=== PATIENT | female | born 1940 | race Caucasian/White ===

== ENCOUNTER → 2018-02-25 12:16 | Outpatient (CLI) | payer MEDICARE, BC, SELFPAY ==
--- NOTE | 2018-02-25 12:21 | RAD_ITS ---
STUDY: X-RAY - LEFT FOOT CLINICAL: Female, 77 years old. Patient fell. Pain TECHNIQUE: 3 view(s) of the foot. COMPARISON: None. FINDINGS: There is hallux valgus deformity with uncovering about 30% of the articular margin of the first MTP joint. There is a nondisplaced fracture involving the base of the fifth metatarsal bone. The rest of the bones of the foot are normal RAD/Foot min 3 Views IMPRESSION: A nondisplaced fracture involving the base of the fifth metatarsal bone. A mild hallux deformity Electronically Signed: Walt Melendez, at 7:18 EDT Tel , Service support ,
== END ==
PROVIDERS: Family Provider Family Medicine; PCP Family Medicine; Visit Provider Chiropractor
DX: S92.355A Nondisplaced fracture of fifth metatarsal bone, left foot, initial encounter for closed fracture (principal); W19.XXXA Unspecified fall, initial encounter
CPT/HCPCS: 73630

== ENCOUNTER → 2018-03-20 13:02 | Outpatient (CLI) | payer MEDICARE, BC, SELFPAY ==
--- NOTE | 2018-03-20 13:05 | RAD_ITS ---
STUDY: X-RAY - LEFT FOOT CLINICAL: Female, 78 years old. FRACTURE FOLLOW UP TECHNIQUE: 3 view(s) of the foot. COMPARISON: 18 FINDINGS: Normal talus, calcaneus, and tarsal bones. Normal visualized subtalar, talonavicular, calcaneocuboid, tarsal and tarsometatarsal articulations. Status post fracture of the base of the fifth metatarsal bone. There is degenerative arthrosis of the metatarsophalangeal joint of the hallux with a hallux valgus deformity. Normal tibial and fibular sesamoid bones. Normal interphalangeal joint of the great toe. Normal phalanges of the great toe. Normal second through fifth metatarsophalangeal joints. Normal interphalangeal joints and phalanges of the lesser toes. The soft tissue structures are unremarkable. RAD/Foot min 3 Views IMPRESSION: No evidence for healing of the fractured base of the fifth metatarsal bone. Electronically Signed: Reggie Hernández MD at 17:20 EDT , Service support ,
== END ==
PROVIDERS: Family Provider Family Medicine; PCP Family Medicine; Visit Provider Nurse Practitioner Family
DX: S92.302A Fracture of unspecified metatarsal bone(s), left foot, initial encounter for closed fracture (principal); X58.XXXA Exposure to other specified factors, initial encounter
CPT/HCPCS: 73630

== ENCOUNTER 2018-12-01 16:48 | Inpatient (IN) | payer MEDICARE, BC, SELFPAY ==
[2018-10-09 11:00] VITALS: BMI 16.2
[2018-12-01] VITALS (12 sets, daily range): BP systolic 126–149; BP diastolic 83–105; PULSE 99–136; RESP 15–23; TEMP 36.2–37; O2SAT 92–99; BMI 17.2; BMI 17.0
--- NOTE | 2018-12-01 17:37 | EKG12_ITS ---
Test Reason : Blood Pressure : / mmHG Vent. Rate : 124 BPM Atrial Rate : 110 BPM P-R Int : 000 ms QRS Dur : 090 ms QT Int : 330 ms P-R-T Axes : 000 099 099 degrees QTc Int : 474 ms Atrial fibrillation with rapid ventricular response Rightward axis Low voltage QRS Abnormal ECG Confirmed by SALVATORE LUTHER, KOBY ([id number]), editorial director ASTRID MERINO ([id number]) on 12/03/2018 1:23:42 PM Referred By: ELIZABETH Confirmed By:KOBY CHASE MD
--- NOTE | 2018-12-01 17:39 | RAD_ITS ---
STUDY: X-RAY CHEST REASON FOR EXAM: Female, 78 years old. Shortness of breath. TECHNIQUE: PA and lateral views of the chest. COMPARISON: None. FINDINGS: There are bilateral pleural effusions associated with bibasilar ill-defined patchy opacities. Normal size heart. Normal mediastinum and clari. Normal visualized pulmonary arteries. Normal visualized aortic arch and descending thoracic aorta. Normal visualized thoracic spine. Normal visualized ribs, clavicles, and shoulders. There is no demonstrated abnormality of the visualized soft tissue structures of the upper abdomen. RAD/Chest PA and Lateral IMPRESSION: Bilateral pleural effusions associated with bibasilar patchy opacities concerning for underlying atelectasis and/or pneumonia. Electronically Signed: Viv Atkins MD at 20:07 EDT Tel , Service support ,
--- NOTE | 2018-12-01 17:41 | ED.VIS.GEN ---
History of Present Illness Chief Complaint: General Illness Detail of Chief Complaint: multiple complaints Informant: Patient, Family Onset: Days - 5-6 Context: Gradual Onset Narrative: Patient is very poor historian and has multiple complaints over the past week. She has had a cough that is occasionally productive, some shortness of breath, subjective chills that she states may have been fevers, chronic abdominal pain with new worsening in the umbilicus over the past weeks or months, she is not sure, decreased urination but no dysuria or hematuria, poor appetite and oral intake, diarrhea for the past 3 or 4 days, nausea for the past week along with one bout of emesis 4 days ago. She feels weak all over. - Past Medical History (1) History of basal cell carcinoma Status: Chronic (2) History of cataract Status: Chronic (3) History of hepatitis Status: Chronic (4) Nonrheumatic mitral (valve) prolapse Status: Chronic (5) Paroxysmal atrial fibrillation Status: Chronic (6) Anxiety and depression Status: Chronic (7) GERD (gastroesophageal reflux disease) Status: Chronic (8) Hypothyroidism Status: Chronic (9) IBS (irritable bowel syndrome) Status: Chronic Past Medical History - Allergies and Home Meds Allergies/Adverse Reactions: Allergies gluten Allergy (Intermediate, Verified 12/01/18 16:49) Unknown lactose Allergy (Intermediate, Verified 12/01/18 16:49) unknown Primary Care Physician: Daljit Sen DO [Primary Care Provider] - Smoking Status: Never smoker Alcohol: None Review of Systems General: Reports: Chills, Malaise Eyes: Denies: Visual changes - bilaterally, Diplopia ENT: Denies: Bilateral ear pain, Rhinorrhea, Sore throat Cardiovascular: Reports: Chest pain - left, chronic, unchanged. Denies: Palpitations Respiratory: Reports: Dyspnea, Cough, Sputum, Dyspnea on exertion Gastrointestinal: Reports: Abdominal pain, Nausea, Vomiting, Diarrhea. Denies: Constipation, Melena, Hematochezia Genitourinary: Denies: Dysuria, Hematuria, Frequency Musculoskeletal: Denies: Back pain, Swelling, Extremity Pain Skin: Denies: Rash, Wounds Neurological: Denies: Headache, Weakness, Numbness Psych: Reports: Anxiety Physical Exam Vital Signs/Narrative: Vital Signs Temp Pulse Resp BP Pulse Ox 12/01/18 16:48 98.1 F 129 H 15 128/86 H 96 Inital Vital Signs reviewed: Yes General: Well nourished, Well developed, No Acute Distress - but appears malaised Head: Normocephalic, Atraumatic Eyes: Perrl, EOMI ENT: Moist mucous membranes, No rhinorrhea, TM's clear Neck: Supple, No lymphadenopathy, - - mild submandibular tenderness bilat; no mass/abscess/lesions. Cardiovascular: Regular rate, Regular rhythm, No murmurs, Tachycardia Respiratory: No distress, Chest nontender, Rales - bibasilar, worse on right Abdomen: Soft, Nondistended, Normal bowel sounds, Tender - mild at umbilicus. poss small hernia here. no overlying erythema. too small to auscultate by itself. Also tender epigastrium. otherwise, nontender.. Negative for: Guarding, Rebound tenderness Back: Nontender, Normal Inspection. Negative for: CVA tenderness, Spinal tenderness Extremities: Nontender, No edema Skin: Normal color, No rash, No Trauma Neurological: Alert, Oriented x3, Cranial nerves II-XII grossly intact, Normal Strength, Normal Sensation Psychological: Normal affect, Normal Mood Diagnostic/Tx/Re-eval Chest X-Ray - ED: 2 View, Read by ED Physician, Right Infiltrate, Left Infiltrate Impressions Chest X-Ray 12/01/18 17:39 IMPRESSION: Bilateral pleural effusions associated with bibasilar patchy opacities concerning for underlying atelectasis and/or pneumonia. Electronically Signed: Viv Atkins MD at 20:07 EDT Tel , Service support , 12/01/18 17:39 Chest PA and Lateral [RAD] Stat 12/01/18 17:40 Mucosa - Nose Influenza Types A,B Direct FA ([facility]) - Final NEGATIVE Laboratory Results 12/01/18 12/01/18 12/01/18 17:52 17:52 17:52 WBC 6.4 RBC 4.66 Hgb 14.7 Hct 41.3 MCV 88.6 MCH 31.5 MCHC 35.6 RDW 12.9 RDW Differential 41.4 Plt Count 194 MPV 11.6 Immature Gran % (Auto) 0.200 Neut % (Auto) 82.7 H Lymph % (Auto) 9.6 L [place] % (Auto) 7.3 Eos % (Auto) 0.0 Baso % (Auto) 0.2 Absolute Neuts (auto) 5.3 Absolute Lymphs (auto) 0.62 L Total Counted Not Reportable Sodium Potassium Chloride Carbon Dioxide Anion Gap BUN Creatinine Estim Creat Clear Calc Est GFR (MDRD) Af Amer Est GFR (MDRD) Non-Af BUN/Creatinine Ratio Glucose Lactic Acid 1.8 Calcium Total Bilirubin AST ALT Alkaline Phosphatase Troponin I B-Natriuretic Peptide 218.4 H Total Protein Albumin Globulin Albumin/Globulin Ratio Lipase 12/01/18 17:52 WBC RBC Hgb Hct MCV MCH MCHC RDW RDW Differential Plt Count MPV Immature Gran % (Auto) Neut % (Auto) Lymph % (Auto) [place] % (Auto) Eos % (Auto) Baso % (Auto) Absolute Neuts (auto) Absolute Lymphs (auto) Total Counted Sodium 118 L* Potassium 4.4 Chloride 80 L Carbon Dioxide 27.0 Anion Gap 11 BUN 13 Creatinine 0.64 Estim Creat Clear Calc 37.55 Est GFR (MDRD) Af Amer 116 Est GFR (MDRD) Non-Af 96 BUN/Creatinine Ratio 20.4 H Glucose 144 H Lactic Acid Calcium 8.2 L Total Bilirubin 0.80 AST 72 H ALT 55 Alkaline Phosphatase 71 Troponin I < 0.015 B-Natriuretic Peptide Total Protein 7.3 Albumin 3.7 Globulin 3.6 Albumin/Globulin Ratio 1.0 Lipase 58 L - Rhythm Strip Rhythm Strip: A-fib Rate: 124 Ectopy: None - EKG Initial EKG Interpretation: No Acute Injury Pattern, Atrial Fibrillation, Non-Specific ST Changes - antsept - Medical Decision Making Patient's breathing is stable and improved after nebulizer treatment. Persistent atrial fibrillation with RVR, she has a history of paroxysmal atrial fibrillation. She appears ill but not unstable or in need of mechanical ventilation. With the diarrhea, hyponatremia, and bibasilar infiltrates, she has legionnaires disease until proven otherwise. Started on Levaquin, in addition to Rocephin to cover more typical etiologies. Lactate is WNL, BP has been stable. Plan is for admission to PCU. ED Disposition - Plan for ED Patient: Disposition: Acute Care Hospital [facility] Diagnosis: Sepsis, Hyponatremia, CAP (community acquired pneumonia), Mild dehydration Referrals: Daljit Sen DO [Primary Care Provider] -
[2018-12-01] MEDS: Albuterol 2.5 MG/3 ML VIAL.NEB. INHALATION ×2 (17:57→18:22)
[2018-12-01] MEDS: Ipratropium/Albuterol Sulfate 3 ML AMPUL.NEB INHALATION (17:57)
[2018-12-01] MEDS: Morphine 2 MG/ML Syringe IV (18:00)
[2018-12-01] MEDS: Ondansetron 4 MG/2 ML Vial IV (18:01)
--- NOTE | 2018-12-01 18:03 | NURSING ---
NO OLD EKGS
[2018-12-01 18:16] LABS: Absolute Lymphocyte Count 0.62 X10^3/ul (0.83-4.51); Absolute Neutrophil Count 5.3 X10^3/uL (2.0-7.7); Basophil# 0.01 X10^3/uL; Basophil% 0.2 % (0-1); Hematocrit 41.3 % (37-47); Hemoglobin 14.7 g/dl (12.0-15.0); Lymphocyte # 0.62 X10^3/ul (4.0); Lymphocyte % 9.6 % (19-41); Mean Corp Hgb Conc 35.6 g/gl (32-36); Mean Corpuscular Hgb 31.5 pg (27.0-32.0); Mean Corpuscular Volume 88.6 fL (81-99); Mean Platelet Vol. 11.6 fl (6.2-12.0); Monocyte# 0.47 X10^3/uL; Monocyte% 7.3 % (0-10); Neutrophil # 5.32 X10^3/uL (2.7-7.7); Neutrophil % 82.7 % (47-70); Platelet Count 194 K/mm3 (150-450); RBC Distribution Width CV 12.9 % (11.6-14.6); RBC Distribution Width SD 41.4 fl (35.1-43.9); Red Blood Count 4.66 M/mm3 (4.2-5.4); White Blood Count 6.4 K/mm3 (4.4-11.0)
[2018-12-01 18:17] LABS: POSITIVE COUNT NO; POSITIVE DIFFERENTIAL NO; POSITIVE MORPHOLOGY NO
[2018-12-01 18:33] LABS: AST(SGOT) 72 U/L (15-37); Alanine Aminotransfer ALT/SGPT 55 U/L (13-56); Albumin, Serum 3.7 g/dL (3.2-5.0); Alkaline Phosphatase 71 U/L (45-117); Anion Gap 11 (5-15); BUN 13 mg/dL (7-18); BUN/Creat Ratio 20.4 RATIO (10-20); Calcium,Total 8.2 mg/dL (8.5-10.1); Chloride 80 mmol/L (98-107); Creatinine, Serum 0.64 mg/dL (0.55-1.02); EST Glomerular Filtration Rate 96 mL/min (>60); Est Glom Filt Rate - Afr Amer 116 mL/min (>60); Estimated Creatinine Clearance 37.55 ml/min; Globulin 3.6 g/dL (2.2-4.2); Glucose 144 mg/dL (74-106); Lipase 58 U/L (73-393); Potassium 4.4 mmol/L (3.5-5.1); Protein, Total 7.3 g/dL (6.4-8.2); Sodium Level 118 mmol/L (136-145)
[2018-12-01 18:34] LABS: Lactic Acid 1.8 mmol/L (0.4-2.0)
[2018-12-01] MEDS: Ceftriaxone 1 GM/50 ML BAG IV (19:19)
[2018-12-01 19:20] LABS: BNP,B-Type NATRIURETIC PEPTIDE 218.4 pg/mL (0-100)
--- NOTE | 2018-12-01 19:30 | ED.RN ---
pt assisted up to br; unable to void
[2018-12-01] MEDS: levoFLOXacin IV 750 MG/150 ML BAG 100 MG IV (20:18)
[2018-12-01 21:31] LABS: Color, Urine Yellow (Yellow); Glucose, Dipstick Normal (Normal); Leukocyte Esterase-Dipstick 25 /ul (Negative); Nitrite-Dipstick Positive (Negative); Occult Blood-Urine 50 /ul (Negative); Protein-Dipstick 30 mg/dl (Negative); Specific Gravity, Urine 1.025 (1.002-1.030); Urine Bilirubin Dipstick Negative (Negative); Urine Clarity Cloudy (Clear); Urine Urobilinogen Normal (Normal)
[2018-12-01 21:43] LABS: Ketone-Dipstick 150 mg/dl (Negative)
[2018-12-01 21:45] LABS: Bacteria 2+ /hpf (None Seen); Mucous, Urine 2+ /hpf (<or=2+); White Blood Cells 10-25 SEEN /hpf (0-5)
[2018-12-01 21:46] LABS: Red Blood Cells-Urine 0-5 SEEN /hpf (0-5); Squamous Epithelial Cells - UA 0 SEEN /hpf (5-10)
[2018-12-01] MEDS: clonazePAM 0.5 MG Tablet 0.25 MG PO (23:01)
[2018-12-01] MEDS: Carvedilol 12.5 MG Tablet PO (23:01)
[2018-12-01] MEDS: Imipramine HCl 25 MG Tablet 50 MG PO (23:02)
[2018-12-01] MEDS: Mirtazapine 15 MG Tablet PO (23:02)
[2018-12-01] MEDS: Heparin Injection (Vial) 5,000 UNIT/ML VIAL 5000 UNIT SC (23:02)
[2018-12-01] MEDS: Furosemide 20 MG/2 ML VIAL IV (23:03)
--- NOTE | 2018-12-01 23:04 | PCM.HP.STD ---
Problem List (1) Shortness of breath Status: Acute History of Present Illness Date of Admission: 12/01/18 Chief Complaint: Shortness of breath The patient is a 78 year old F seen in the emergency room most [facility] with chief complaint of shortness of breath and nausea. Patient is a poor informant, she is accompanied by her daughter. Patient lives with her , according to her daughter, patient self adjusts her medications and she cannot be sure that her mother is even taking some of her medications at all. Patient denies any purulent sputum production, is positive for cough, denies any chills, fever, hemoptysis, or diarrhea. Workup in the emergency room initially revealed the patient's pulse ox to be 96 on room air, patient was afebrile, lab was obtained-CBC was unremarkable, chemistry panel was remarkable for sodium of 118, chloride of 80, glucose of 144, and the patient's beta natruretic peptide was 218.4. AST was elevated at 72. Chest x-ray was obtained showing bilateral pleural effusions associated with bibasilar patchy opacities concerning for underlying atelectasis and/or pneumonia. It was my opinion on examination of the patient, that she probably had congestive heart failure although I could not rule out pneumonia. I discussed her care with the emergency room physician and we decided to place the patient on Levaquin, I will place her on Lasix when she is admitted and her chest x-ray will be repeated tomorrow. Patient's influenza swab was negative, I will obtain urine for Legionella antigen and strep pneumo antigen. Patient's last echocardiogram performed at [facility] showed the patient have a preserved ejection fraction at 55-65%. This study was done approximately 2 years ago and I will repeat her echocardiogram during this hospitalization. Past Medical History Past Medical History (Chronic Problems): Chronic Problems (Last Reviewed 10/09/18 @ 10:57 by Daljit eSn DO) Paroxysmal atrial fibrillation (Chronic) Nonrheumatic mitral (valve) prolapse (Chronic) Hypothyroidism (Chronic) History of basal cell carcinoma (Chronic) Anxiety and depression (Chronic) History of cataract (Chronic) Heart murmur (Chronic) GERD (gastroesophageal reflux disease) (Chronic) IBS (irritable bowel syndrome) (Chronic) History of hepatitis (Chronic) Hormone replacement therapy (Chronic) Medical History: Medical History (Last Reviewed 10/09/18 @ 10:57 by Daljit Sen DO) Hypotension (Resolved) I95.9 Paroxysmal atrial fibrillation (Chronic) I48.0 Nonrheumatic mitral (valve) prolapse (Chronic) I34.1 Hypothyroidism (Chronic) E03.9 History of basal cell carcinoma (Chronic) Z85.828 Anxiety and depression (Chronic) F41.9, F32.9 History of cataract (Chronic) Z86.69 Heart murmur (Chronic) R01.1 GERD (gastroesophageal reflux disease) (Chronic) K21.9 IBS (irritable bowel syndrome) (Chronic) K58.9 History of hepatitis (Chronic) Z86.19 Hormone replacement therapy (Chronic) Z79.890 History of hysterectomy Z90.710 A-fib (Inactive) I48.91 Allergies gluten Allergy (Intermediate, Verified 12/01/18 16:49) Unknown lactose Allergy (Intermediate, Verified 12/01/18 16:49) unknown Home Medications: Ambulatory Orders Medication Instructions Recorded celecoxib 200 mg capsule 200 mg PO BID #180 cap 11/26/17 coenzyme Q 10 10 mg capsule 10 mg PO ONCE 01/04/18 linaclotide 145 mcg capsule 145 mcg PO .q1w cap 01/04/18 magnesium 200 mg tablet 200 mg PO QDAY 01/04/18 multivitamin capsule 1 cap PO QAM 01/04/18 omega-3 fatty acids 1,000 mg 1,000 mg PO QDAY 01/04/18 capsule vitamin B12 0.5 mg-folic acid 1 mg 1 tab PO QDAY 01/04/18 tablet digoxin 125 mcg tablet 125 mcg PO QDAY #90 tab 02/20/18 thyroid (pork) 30 mg tablet 30 mg PO QDAY #90 tab 03/21/18 tramadol 50 mg tablet 25 mg PO Q6H PRN #30 tab 03/21/18 sertraline 50 mg tablet 50 mg PO QDAY #90 tab 04/19/18 haloperidol 1 mg tablet 1 mg PO BID #60 tab 05/09/18 polyethylene glycol 3350 17 gram 17 g PO DAILY 06/20/18 oral powder packet prednisolone 10 mg disintegrating 10 mg PO QDAY #30 tab 06/20/18 tablet prochlorperazine maleate 5 mg 5 mg PO DAILY PRN #30 tab 07/12/18 tablet clonazepam 0.5 mg tablet 0.25 mg PO QHS #90 tab 07/15/18 estradiol 0.5 mg tablet 0.5 mg PO DAILY #30 tab 10/09/18 imipramine 50 mg tablet 50 mg PO QHS #30 tab 10/09/18 propafenone 150 mg tablet 150 mg PO Q8H #90 tab 10/09/18 mirtazapine 15 mg tablet 15 mg PO QHS #30 tab 10/25/18 meclizine 12.5 mg tablet 12.5 mg PO QDAY #30 tab 11/22/18 Acetaminophen [Acetaminophen ER] 325 mg PO Q6H PRN 12/01/18 Cholecalciferol (Vitamin D3) 2,000 units PO DAILY 12/01/18 [Vitamin D3] Surgical History: Surgical History (Last Reviewed 10/09/18 @ 10:57 by Daljit Sen DO) History of cholecystectomy Z90.49 Surgical History: cholecystectomy Psychiatric History: No pertinent psych hx SUCCESSFACTORS CONSULTANT History: No pertinent SUCCESSFACTORS CONSULTANT history Lives: Spouse/ Significant Other Smoking Status: Never smoker Tobacco Use: Non-smoker Alcohol: None Drugs: None - *Family History Maternal Family History: Family History (Last Reviewed 10/09/18 @ 10:57 by Daljit Sen DO) Grandmother Colon cancer Grandfather Myocardial infarction Mother Heart disease Myocardial infarction Parkinsons History Items: No pertinent history Paternal Family History: Family History (Last Reviewed 10/09/18 @ 10:57 by Daljit Sen DO) Grandmother Colon cancer Grandfather Myocardial infarction Mother Heart disease Myocardial infarction Parkinsons History Items: No pertinent history Review of Systems Constitutional: Reports: Fatigue. Denies: Anorexia, Chills, Fever, Night Sweats, Malaise, Weakness, Weight Change Eyes: Denies: Cataracts, Conjunctivae Inflammation, Double vision, Drainage HEENT: Denies: Dysphasia, Ear Pain, Eye Pain, Hearing Changes, Nasal bleeding, Nasal Congestion, Post Nasal Drip Cardiovascular: Denies: Chest Pain, Claudication, Chest Pressure, Chest Tightness, Edema, Heaviness, Light Headedness, Orthopnea, Palpitations, Paroxysmal Noc. Dyspnea, Syncope Respiratory: Reports: Cough, Shortness of Breath, Shortness of breath at rest, Shortness of breath upon exertion. Denies: Hemoptysis, Pleuritic Pain, Sputum production Gastrointestinal: Reports: Nausea. Denies: Abdominal Pain, Constipation, Diarrhea, Hematemesis, Hematochezia, Melena, Vomiting Genitourinary: Denies: Dysuria, Frequency, Hematuria, Hesitancy, Incontinence, Nocturia, Urgency Gynecological: Denies: Breast symptoms Musculoskeletal: Denies: Back Pain, Foot Pain, Hand Pain, Joint Pain, Joint stiffness, Joint swelling, Joint Tenderness, Leg Pain Skin: Denies: Dryness, Jaundice, Pruritis, Rash Neurological: Denies: Blurred vision, Double vision, Slurred speech, Difficulty swallowing, Focal weakness, Headaches, Numbness, Tingling Psychiatric: Denies: Anxiety, Depression, Homicidal Ideations, Suicidal Ideations Endocrine: Denies: Change in Body Habitus, Heat/ Cold Intolerance, Polydipsia, Polyuria Hematologic/ Lymphatic: Denies: Adenopathy, Anemia, Easy Bruising, Easy Bleeding, Petechiae, Purpura VTE Information - Inpt Only VTE Present on Admission: No VTE Mechan Device Prophylaxis: None VTE Pharm Prophylaxis ordered?: Yes Patient Problems: Active and Suspected Problems (Last Updated 12/02/18 @ 01:59 by Nicolas Thakur DO) Sepsis (Suspected) Hyponatremia (Acute) CAP (community acquired pneumonia) (Acute) Mild dehydration (Acute) Shortness of breath (Acute) - Physical Exam General: Alert, Oriented x3, Cooperative, No apparent distress, Well developed, - - Patient appears frail HEENT: Atraumatic, PERRLA, EOMI, Normocephalic Oral: Moist Mucosa Neck: Supple, No JVD, Negative Carotid Bruits, No Nuchal Rigidity, Trachea Midline, Thyroid Normal Size and Texture Lungs: Normal air movement, Diminished - Diminished breath sounds are noted over the right lung base, Rales - Inspiratory rales are noted over the bases bilaterally Cardiovascular: PMI Normal, Irregular Rate, No rub noted Abdomen: Bowel Sounds Present, Soft, Non Tender, Non-Distended, No hernias noted Extremities: No clubbing, No cyanosis, Capillary Refill Less than 3 Seconds Skin: No rashes Neurological: Cranial nerves II-XII grossly intact, Neuro grossly intact, Sensory exam intact to light touch and pain, Coordination normal Psych/Mental Status: Normal Affect, Appropriate, Alert and oriented to time, place, person, mood and affect Vital Signs Temp Pulse Resp BP Pulse Ox 97.3 F L 123 H 18 132/83 H 94 12/01/18 21:53 12/01/18 21:53 12/01/18 21:53 12/01/18 21:54 12/01/18 21:53 Oxygen Flow Rate (L/min) 6 Oxygen Delivery Method Nasal Cannula Weight: 49.3 kg Body Mass Index (BMI) 17.0 Microbiology Past 72 Hours 12/01/18 21:20 Streptococcus pneumoniae Antigen (M - Final Urine, Clean Catch 12/01/18 21:20 Legionella Antigen - Final Urine, Clean Catch 12/01/18 17:40 Influenza Types A,B Direct FA ([facility]) - Final Mucosa - Nose Laboratory Tests Past 24 Hrs 12/01/18 12/01/18 12/01/18 17:52 17:52 17:52 WBC 6.4 RBC 4.66 Hgb 14.7 Hct 41.3 MCV 88.6 MCH 31.5 MCHC 35.6 RDW 12.9 RDW Differential 41.4 Plt Count 194 MPV 11.6 Immature Gran % (Auto) 0.200 Neut % (Auto) 82.7 H Lymph % (Auto) 9.[address] [place] % (Auto) 7.3 Eos % (Auto) 0.0 Baso % (Auto) 0.2 Absolute Neuts (auto) 5.3 Absolute Lymphs (auto) 0.62 L Total Counted Not Reportable Sodium Potassium Chloride Carbon Dioxide Anion Gap BUN Creatinine Estim Creat Clear Calc Est GFR (MDRD) Af Amer Est GFR (MDRD) Non-Af BUN/Creatinine Ratio Glucose Lactic Acid 1.8 Calcium Total Bilirubin AST ALT Alkaline Phosphatase Troponin I B-Natriuretic Peptide 218.4 H Total Protein Albumin Globulin Albumin/Globulin Ratio Lipase Urine Color Urine Clarity Urine pH Ur Specific [place] Urine Protein Urine Glucose (UA) Urine Ketones Urine Occult Blood Urine Nitrite Urine Bilirubin Urine Urobilinogen Ur Leukocyte Esterase Urine RBC Urine WBC Ur Squamous Epith Cells Urine Bacteria Urine Mucus 12/01/18 12/01/18 17:52 21:20 WBC RBC Hgb Hct MCV MCH MCHC RDW RDW Differential Plt Count MPV Immature Gran % (Auto) Neut % (Auto) Lymph % (Auto) [place] % (Auto) Eos % (Auto) Baso % (Auto) Absolute Neuts (auto) Absolute Lymphs (auto) Total Counted Sodium 118 L* Potassium 4.4 Chloride 80 L Carbon Dioxide 27.0 Anion Gap 11 BUN 13 Creatinine 0.64 Estim Creat Clear Calc 37.55 Est GFR (MDRD) Af Amer 116 Est GFR (MDRD) Non-Af 96 BUN/Creatinine Ratio 20.4 H Glucose 144 H Lactic Acid Calcium 8.2 L Total Bilirubin 0.80 AST 72 H ALT 55 Alkaline Phosphatase 71 Troponin I < 0.015 B-Natriuretic Peptide Total Protein 7.3 Albumin 3.7 Globulin 3.6 Albumin/Globulin Ratio 1.0 Lipase 58 L Urine Color Yellow Urine Clarity Cloudy Urine pH 6.0 Ur Specific [place] 1.025 Urine Protein 30 H Urine Glucose (UA) Normal Urine Ketones 150 H Urine Occult Blood 50 H Urine Nitrite Positive H Urine Bilirubin Negative Urine Urobilinogen Normal Ur Leukocyte Esterase 25 H Urine RBC 0-5 SEEN Urine WBC 10-25 SEEN Ur Squamous Epith Cells 0 SEEN Urine Bacteria 2+ Urine Mucus 2+ Assessment/Plan All Active Problems (Last Updated 12/02/18 @ 01:59 by Nicolas Thakur DO) Hyponatremia (Acute) CAP (community acquired pneumonia) (Acute) Mild dehydration (Acute) Shortness of breath (Acute) Hypotension (Resolved) #1 acute diastolic congestive heart failure-patient will be admitted to PCU, IV Lasix will be administered, she will be kept on rate limiting medications, echocardiogram will be performed. #2 possible community-acquired pneumonia-I think overall that this is unlikely though I think patient should be kept on antibiotics for now and monitored. #3 chronic atrial fibrillation with RVR-patient will be given rate limiting medications, they may need to be adjusted, patient states her family physician took her off of Xarelto-I do not know why and I am unable to contact Dr. Sen who she sees as her primary care doctor. For now, I will keep the patient off of any anticoagulation except for Lovenox for DVT prophylaxis #4 hypoxia secondary to #1-patient will be monitored, oxygen will be weaned if possible #5 hyponatremia-etiology unclear, patient's daughter states that the patient drinks a large amount of water at home-this may be delusional in nature, I will place the patient on normal saline and monitor her sodium. #6 suspect noncompliance with medical regimen-patient's daughter states that the patient adjust her own medications at home and in fact takes her 's Lasix at times. #7 hypertension Code Visit Inpatient E&M: 25676 Init Hosp L3
[2018-12-01] MEDS: Propafenone 150 MG Tablet PO (23:05)
[2018-12-01] MEDS: 0.9% NaCl Peripheral Flush Adult/Peds IV (23:05)
[2018-12-01] MEDS: Digoxin 125 MCG Tablet PO (23:59)
[2018-12-02] VITALS (18 sets, daily range): BP systolic 90–110; BP diastolic 49–72; PULSE 78–108; RESP 14–18; TEMP 36.3–36.7; O2SAT 96–99
--- NOTE | 2018-12-02 02:03 | ECHOD_ITS ---
Reason For Study: Afib/Flutter, Procedure This was a 2D Doppler, Color Flow transthoracic echocardiogram. Exam performed portable in patient room. Left Ventricle Normal LV size. The estimated ejection fraction is 40 %. Stage 3 diastolic dysfunction. There is mild to moderate global hypokinesis of the left ventricle. Right Ventricle Normal RV size. Normal systolic function. Atria The left atrium is mildly enlarged. Normal right atrium. Mitral Valve Anterior leaflet mitral valve prolapse. Moderately severe (3+) eccentric mitral valve insufficiency. Tricuspid Valve Normal tricuspid valve. Mild (1+) tricuspid valve insufficiency. Pulmonary artery systolic pressure is 32 mmHg. Aortic Valve Trisinus/trileaflet aortic valve. Pulmonic Valve Normal pulmonic valve. Great Vessels Normal aortic root. The pulmonary artery is normal size. Normal inferior vena cava. Pericardium/Pleural No pericardial effusion. Large left pleural effusion. MMode/2D Measurements & Calculations LVIDd: 4.2 cm IVSd: 1.1 cm LA dimension: 4.3 cm LVIDs: 3.3 cm LVPWd: 1.0 cm FS: 21.3 % LAV(MOD-bp): 83.4 ml LA A4 area: 22.5 cm2 RA A4 area: 12.3 cm2 LAV(MOD-bp) Indexed: 53.6 ml/m2 LAV(MOD-sp2): 103.6 ml LAV(MOD-sp4): 64.3 ml Time Measurements MV dec time: 0.24 sec Doppler Measurements & Calculations MV E max [place]: 126.4 cm/sec Lat Peak E' [place]: 4.3 cm/sec Med Peak E' [place]: 6.3 cm/sec MV A max [place]: 39.4 cm/sec E/E' lat: 29.2 E/E' med: 20.0 MV E/A: 3.2 MV V2 max: 152.4 cm/sec MV P1/2t max [place]: 152.4 cm/sec MR max [place]: 527.9 cm/sec MV max P.3 mmHg MV P1/2t: 80.3 msec MR max P.5 mmHg MV V2 mean: 69.6 cm/sec MV dec slope: 555.9 cm/sec2 MR mean [place]: 400.0 cm/sec MV mean P.6 mmHg MVA(P1/2t): 2.7 cm2 MR mean P.8 mmHg MV V2 VTI: 35.5 cm MR VTI: 141.7 cm PA V2 max: 54.8 cm/sec TR max [place]: 263.4 cm/sec TR max P.8 mmHg Interpretation Summary Normal LV size. The estimated ejection fraction is 40 %. Stage 3 diastolic dysfunction. Mild (1+) tricuspid valve insufficiency. Pulmonary artery systolic pressure is 32 mmHg. Large left pleural effusion. Ordering Physician: Nicolas Thakur Referring Physician: Daljit Sen Performed By: Luis Harkins RCS
[2018-12-02] MEDS: levoFLOXacin 500 MG Tablet PO (05:34)
[2018-12-02] MEDS: Heparin Injection (Vial) 5,000 UNIT/ML VIAL 5000 UNIT SC ×3 (05:34→21:25)
--- NOTE | 2018-12-02 05:40 | RAD_ITS ---
STUDY: X-RAY CHEST REASON FOR EXAM: Female, 78 years old. Shortness of breath TECHNIQUE: Single frontal view of the chest. COMPARISON: December 01, 2018 FINDINGS: Low lung volumes. No pneumothorax. Bilateral pleural effusions with adjacent atelectasis/infiltrate similar to prior exam. The heart is within normal limits in size. Aortic calcifications. RAD/Chest 1 View (Portable) IMPRESSION: Bilateral pleural effusions with adjacent atelectasis/infiltrates. No significant interval change compared to prior radiograph December 01, 2018. Recommend follow-up imaging to ensure resolution. Electronically Signed: Malcolm Irving, at 6:51 EDT Tel , Service support ,
[2018-12-02] MEDS: Propafenone 150 MG Tablet PO ×3 (06:00→21:26)
[2018-12-02 06:40] LABS: Anion Gap 10 (5-15); BUN 14 mg/dL (7-18); Calcium,Total 7.6 mg/dL (8.5-10.1); Chloride 83 mmol/L (98-107); Creatinine, Serum 0.64 mg/dL (0.55-1.02); EST Glomerular Filtration Rate 96 mL/min (>60); Est Glom Filt Rate - Afr Amer 116 mL/min (>60); Estimated Creatinine Clearance 37.25 ml/min; Glucose 111 mg/dL (74-106); Potassium 4.5 mmol/L (3.5-5.1); Sodium Level 119 mmol/L (136-145)
[2018-12-02 06:41] LABS: Absolute Lymphocyte Count 0.45 X10^3/ul (0.83-4.51); Absolute Neutrophil Count 9.9 X10^3/uL (2.0-7.7); Basophil# 0.01 X10^3/uL; Basophil% 0.1 % (0-1); Hematocrit 38.1 % (37-47); Hemoglobin 13.4 g/dl (12.0-15.0); Lymphocyte # 0.45 X10^3/ul (4.0); Mean Corp Hgb Conc 35.2 g/gl (32-36); Mean Corpuscular Hgb 31.5 pg (27.0-32.0); Mean Corpuscular Volume 89.4 fL (81-99); Mean Platelet Vol. 11.6 fl (6.2-12.0); Monocyte# 1.03 X10^3/uL; Neutrophil # 9.88 X10^3/uL (2.7-7.7); Neutrophil % 86.7 % (47-70); Platelet Count 179 K/mm3 (150-450); RBC Distribution Width CV 12.9 % (11.6-14.6); RBC Distribution Width SD 41.9 fl (35.1-43.9); Red Blood Count 4.26 M/mm3 (4.2-5.4); White Blood Count 11.4 K/mm3 (4.4-11.0)
[2018-12-02 06:46] LABS: Differential Indicated SCAN CRITERIA MET; POSITIVE COUNT NO; POSITIVE DIFFERENTIAL YES; POSITIVE MORPHOLOGY NO
[2018-12-02 07:01] LABS: Differential Comment SCANNED
[2018-12-02] MEDS: Estradiol 0.5 MG Tablet PO (08:54)
[2018-12-02] MEDS: Carvedilol 6.25 MG Tablet PO ×2 (08:54→21:25)
[2018-12-02] MEDS: Digoxin 125 MCG Tablet PO (08:54)
[2018-12-02] MEDS: Magnesium Oxide 400 MG Tablet 200 MG PO (08:56)
[2018-12-02] MEDS: Sertraline 50 MG Tablet PO (08:58)
[2018-12-02] MEDS: traMADol 50 MG Tablet 25 MG PO (09:04)
[2018-12-02] MEDS: Thyroid 15 MG Tablet 30 MG PO (10:25)
--- NOTE | 2018-12-02 11:33 | CASEMGMT ---
RN CM Assessment Presentation: Acute diastolic CHF. IV lasix, Oxygen, ?CAP Intro role of CM and purpose of RN CM assessment to patient, and daughter. Pt is able to participate in assessment. Demographics, PCP and Pharmacy verified. PCP: Dr. Sen Preferred Pharmacy: [facility] preferred Insurance: [facility] Prescription Benefit: yes LNOK: Living Arrangements: lives independently in mobile home with her . States is independent in ADL's. No assistance required. Transportation: drives DME: nebulizer. Pt states she has been told she may need oxygen @ night in future, but has not been set up. Uses [employer]. HHC: states she has RN through counseling center who comes to her home once every 4-6 weeks. No skilled HHS Patient DC goals: Home DC PLAN: Home on dc. May need Home oxygen testing prior to dc. PT/OT evaluations pending. Alla COBOS RN ACM
--- NOTE | 2018-12-02 14:29 | PCM.PN.HOSP ---
Patient Problems: Active and Suspected Problems (Last Updated 12/02/18 @ 01:59 by Nicolas Thakur DO) Sepsis (Suspected) Hyponatremia (Acute) CAP (community acquired pneumonia) (Acute) Mild dehydration (Acute) Shortness of breath (Acute) Subjective: She states that she is not much improved since when she came in. Though she is adamant that she takes her medications as prescribed Vitals/I&O's: Vital Signs Temp Pulse Resp BP Pulse Ox 97.6 F L 90 16 97/68 98 12/02/18 14:19 12/02/18 14:19 12/02/18 14:19 12/02/18 14:19 12/02/18 14:19 Oxygen Flow Rate (L/min) 3 Oxygen Delivery Method Nasal Cannula Weight: 108 lb 11.006 oz Body Mass Index (BMI) 17.0 Intake and Output for Last 24 Hours 11/30/18 12/01/18 12/02/18 23:59 23:59 23:59 Intake Total 460 / 460 400 / 400 Balance 460 / 460 400 / 400 General: Alert, Oriented x3, Cooperative, No apparent distress HEENT: Atraumatic, PERRLA, EOMI, Normocephalic Oral: Moist Mucosa Neck: Supple, No JVD, Trachea Midline Lungs: Clear to auscultation, Normal air movement, No rhonchi, No wheeze, No rales Cardiovascular: Regular rate, Regular Rhythm, Normal S1, Normal S2, No murmurs Abdomen: Soft, Non Tender, Non-Distended, No Hepato-splenomegaly Extremities: No edema, Capillary Refill Less than 3 Seconds Skin: No rashes, No breakdown Neurological: Neuro grossly intact, Sensory exam intact to light touch and pain Psych/Mental Status: Normal Affect, Appropriate Microbiology Past 72 Hours 12/01/18 21:20 Urine, Clean Catch Streptococcus pneumoniae Antigen (M - Final 12/01/18 21:20 Urine, Clean Catch Legionella Antigen - Final 12/01/18 17:40 Mucosa - Nose Influenza Types A,B Direct FA (OMAR) - Final Laboratory Results 12/01/18 17:52: WBC 6.4, RBC 4.66, Hgb 14.7, Hct 41.3, MCV 88.6, MCH 31.5, MCHC 35.6, RDW 12.9, RDW Differential 41.4, Plt Count 194, MPV 11.6, Immature Gran % (Auto) 0.200, Neut % (Auto) 82.7 H, Lymph % (Auto) 9.6 L, [place] % (Auto) 7.3, Eos % (Auto) 0.0, Baso % (Auto) 0.2, Absolute Neuts (auto) 5.3, Absolute Lymphs (auto) 0.62 L, Total Counted Not Reportable 12/01/18 17:52: Lactic Acid 1.8 12/01/18 17:52: B-Natriuretic Peptide 218.4 H 12/01/18 17:52: Sodium 118 L*, Potassium 4.4, Chloride 80 L, Carbon Dioxide 27.0, Anion Gap 11, BUN 13, Creatinine 0.64, Estim Creat Clear Calc 37.55, Est GFR (MDRD) Af Amer 116, Est GFR (MDRD) Non-Af 96, BUN/Creatinine Ratio 20.4 H, Glucose 144 H, Calcium 8.2 L, Total Bilirubin 0.80, AST 72 H, ALT 55, Alkaline Phosphatase 71, Troponin I < 0.015, Total Protein 7.3, Albumin 3.7, Globulin 3.6, Albumin/Globulin Ratio 1.0, Lipase 58 L 12/01/18 21:20: Urine Color Yellow, Urine Clarity Cloudy, Urine pH 6.0, Ur Specific [place] 1.025, Urine Protein 30 H, Urine Glucose (UA) Normal, Urine Ketones 150 H, Urine Occult Blood 50 H, Urine Nitrite Positive H, Urine Bilirubin Negative, Urine Urobilinogen Normal, Ur Leukocyte Esterase 25 H, Urine RBC 0-5 SEEN, Urine WBC 10-25 SEEN, Ur Squamous Epith Cells 0 SEEN, Urine Bacteria 2+, Urine Mucus 2+ 12/02/18 06:08: WBC 11.4 H, RBC 4.26, Hgb 13.4, Hct 38.1, MCV 89.4, MCH 31.5, MCHC 35.2, RDW 12.9, RDW Differential 41.9, Plt Count 179, MPV 11.6, Immature Gran % (Auto) 0.200, Neut % (Auto) 86.7 H, Lymph % (Auto) 4.0 L, [place] % (Auto) 9.0, Eos % (Auto) 0.0, Baso % (Auto) 0.1, Absolute Neuts (auto) 9.9 H, Absolute Lymphs (auto) 0.45 L, Total Counted Not Reportable, Differential Comment SCANNED 12/02/18 06:08: Sodium 119 L*, Potassium 4.5, Chloride 83 L, Carbon Dioxide 26.0, Anion Gap 10, BUN 14, Creatinine 0.64, Estim Creat Clear Calc 37.25, Est GFR (MDRD) Af Amer 116, Est GFR (MDRD) Non-Af 96, BUN/Creatinine Ratio 22.0 H, Glucose 111 H, Calcium 7.6 L Current Medications Carvedilol (Coreg) 6.25 mg PO BID [facility] Last Admin: 12/02/18 08:54 Dose: 6.25 mg Clonazepam (Klonopin) 0.25 mg PO QHS [facility] Last Admin: 12/01/18 23:01 Dose: 0.25 mg Digoxin (Lanoxin) 125 mcg PO DAILY [facility] Last Admin: 12/02/18 08:54 Dose: 125 mcg Estradiol (Estradiol) 0.5 mg PO DAILY [facility] Last Admin: 12/02/18 08:54 Dose: 0.5 mg Furosemide (Lasix) 20 mg IV Q8 [facility] Last Admin: 12/02/18 05:55 Dose: Not Given Haloperidol Lactate (Haloperidol Lactate) 1 mg PO BID [facility] Heparin Sodium (Porcine) (Heparin Na) 5,000 unit SC Q8 [facility] Last Admin: 12/02/18 05:34 Dose: 5,000 unit Sodium Chloride () 500 mls @ 999 mls/hr IV .Q31M ONE Last Admin: 12/01/18 18:00 Dose: 999 mls/hr Sodium Chloride () 250 mls @ 15 mls/hr IV .[id number] PRN PRN Reason: SALINE FLUSH Imipramine HCl (Tofranil) 50 mg PO QHS [facility] Last Admin: 12/01/18 23:02 Dose: 50 mg Levofloxacin (Levaquin Tablet) 500 mg PO DAILY@0600 [facility] Last Admin: 12/02/18 05:34 Dose: 500 mg Magnesium Oxide (Mag-Ox 400) 200 mg PO DAILY [facility] Last Admin: 12/02/18 08:56 Dose: 200 mg Mirtazapine (Remeron) 15 mg PO QHS [facility] Last Admin: 12/01/18 23:02 Dose: 15 mg Nutritional Formula (Lactose Free) (Ensure Enlive) 120 ml PO 4X/DAY [facility] Last Admin: 12/02/18 08:49 Dose: 120 ml Prochlorperazine Maleate (Compazine Tablet) 5 mg PO DAILY PRN PRN PRN Reason: nausea and vomiting Propafenone HCl (Rythmol) 150 mg PO Q8 [facility] Last Admin: 12/02/18 06:00 Dose: 150 mg Sertraline HCl (Zoloft) 50 mg PO DAILY [facility] Last Admin: 12/02/18 08:58 Dose: 50 mg Sodium Chloride () 5 - 15 ml IV UD PRN PRN Reason: SALINE FLUSH Last Admin: 12/01/18 23:05 Dose: 10 ml Thyroid ([place] Thyroid) 30 mg PO DAILY [facility] Last Admin: 12/02/18 10:25 Dose: 30 mg Tramadol HCl (Ultram) 25 mg PO Q6H PRN PRN Reason: pain Last Admin: 12/02/18 09:04 Dose: 25 mg Medical Necessity - Tobacco Use Smoking Status: Never smoker Tobacco Use: Non-smoker Assessment/Plan All Active Problems (Last Updated 12/02/18 @ 01:59 by Nicolas Thakur DO) Hyponatremia (Acute) CAP (community acquired pneumonia) (Acute) Mild dehydration (Acute) Shortness of breath (Acute) Hypotension (Resolved) 1. Acute hypoxia secondary to acute diastolic congestive heart failure/hyponatremia/chronic A. fib with RVR/HTN -Echo demonstrates an EF of 40% as well as stage III diastolic dysfunction -There is also a large left pleural effusion -Continue with Lasix 20 mg IV 3 times daily and a fluid restriction -Her hyponatremia is likely secondary to hypervolemia -If her sodium does not improve with Lasix and fluid restriction, will consult nephrology -Also home on imipramine, and Zoloft that both can cause SIADH, and propafenone can cause CHF -Continue with her digoxin -Apparently her primary care physician took her off of Xarelto, this is likely to her possibly being a fall risk though she will need to follow-up with him as an outpatient on discharge 2. Possible community-acquired pneumonia -Continue with Levaquin at 500 mg daily -She did develop a slight leukocytosis this morning to 11 up from 6.4 -Continue to monitor 3. Hypothyroidism -She is on pork thyroid, will check TSH -Continue with her home thyroid medication 4. There is some question whether or not she is compliant with her medications and therefore I am hesitant to restart all of the medications that are indicated as her home meds. DVT: Lovenox Code Visit Inpatient E&M: 67449 Subs Hosp L2
[2018-12-02] MEDS: Furosemide 20 MG/2 ML VIAL IV ×2 (14:36→21:26)
--- NOTE | 2018-12-02 14:44 | PN_ITS ---
Patient Problems: Active and Suspected Problems (Last Updated 12/02/18 @ 01:59 by Nicolas Thakur DO) Sepsis (Suspected) Hyponatremia (Acute) CAP (community acquired pneumonia) (Acute) Mild dehydration (Acute) Shortness of breath (Acute) Subjective: She states that she is not much improved since when she came in. Though she is adamant that she takes her medications as prescribed Vitals/I&O's: Vital Signs Temp Pulse Resp BP Pulse Ox 97.6 F L 90 16 97/68 98 12/02/18 14:19 12/02/18 14:19 12/02/18 14:19 12/02/18 14:19 12/02/18 14:19 Oxygen Flow Rate (L/min) 3 Oxygen Delivery Method Nasal Cannula Weight: 108 lb 11.006 oz Body Mass Index (BMI) 17.0 Intake and Output for Last 24 Hours 11/30/18 12/01/18 12/02/18 23:59 23:59 23:59 Intake Total 460 / 460 400 / 400 Balance 460 / 460 400 / 400 General: Alert, Oriented x3, Cooperative, No apparent distress HEENT: Atraumatic, PERRLA, EOMI, Normocephalic Oral: Moist Mucosa Neck: Supple, No JVD, Trachea Midline Lungs: Clear to auscultation, Normal air movement, No rhonchi, No wheeze, No rales Cardiovascular: Regular rate, Regular Rhythm, Normal S1, Normal S2, No murmurs Abdomen: Soft, Non Tender, Non-Distended, No Hepato-splenomegaly Extremities: No edema, Capillary Refill Less than 3 Seconds Skin: No rashes, No breakdown Neurological: Neuro grossly intact, Sensory exam intact to light touch and pain Psych/Mental Status: Normal Affect, Appropriate Microbiology Past 72 Hours 12/01/18 21:20 Urine, Clean Catch Streptococcus pneumoniae Antigen (M - Final 12/01/18 21:20 Urine, Clean Catch Legionella Antigen - Final 12/01/18 17:40 Mucosa - Nose Influenza Types A,B Direct FA (OMAR) - Final Laboratory Results 12/01/18 17:52: WBC 6.4, RBC 4.66, Hgb 14.7, Hct 41.3, MCV 88.6, MCH 31.5, MCHC 35.6, RDW 12.9, RDW Differential 41.4, Plt Count 194, MPV 11.6, Immature Gran % (Auto) 0.200, Neut % (Auto) 82.7 H, Lymph % (Auto) 9.6 L, [place] % (Auto) 7.3, Eos % (Auto) 0.0, Baso % (Auto) 0.2, Absolute Neuts (auto) 5.3, Absolute Lymphs (auto) 0.62 L, Total Counted Not Reportable 12/01/18 17:52: Lactic Acid 1.8 12/01/18 17:52: B-Natriuretic Peptide 218.4 H 12/01/18 17:52: Sodium 118 L*, Potassium 4.4, Chloride 80 L, Carbon Dioxide 27.0, Anion Gap 11, BUN 13, Creatinine 0.64, Estim Creat Clear Calc 37.55, Est GFR (MDRD) Af Amer 116, Est GFR (MDRD) Non-Af 96, BUN/Creatinine Ratio 20.4 H, Glucose 144 H, Calcium 8.2 L, Total Bilirubin 0.80, AST 72 H, ALT 55, Alkaline Phosphatase 71, Troponin I < 0.015, Total Protein 7.3, Albumin 3.7, Globulin 3.6, Albumin/Globulin Ratio 1.0, Lipase 58 L 12/01/18 21:20: Urine Color Yellow, Urine Clarity Cloudy, Urine pH 6.0, Ur Specific [place] 1.025, Urine Protein 30 H, Urine Glucose (UA) Normal, Urine Ketones 150 H, Urine Occult Blood 50 H, Urine Nitrite Positive H, Urine Bilirubin Negative, Urine Urobilinogen Normal, Ur Leukocyte Esterase 25 H, Urine RBC 0-5 SEEN, Urine WBC 10-25 SEEN, Ur Squamous Epith Cells 0 SEEN, Urine Bacteria 2+, Urine Mucus 2+ 12/02/18 06:08: WBC 11.4 H, RBC 4.26, Hgb 13.4, Hct 38.1, MCV 89.4, MCH 31.5, MCHC 35.2, RDW 12.9, RDW Differential 41.9, Plt Count 179, MPV 11.6, Immature Gran % (Auto) 0.200, Neut % (Auto) 86.7 H, Lymph % (Auto) 4.0 L, [place] % (Auto) 9.0, Eos % (Auto) 0.0, Baso % (Auto) 0.1, Absolute Neuts (auto) 9.9 H, Absolute Lymphs (auto) 0.45 L, Total Counted Not Reportable, Differential Comment SCANNED 12/02/18 06:08: Sodium 119 L*, Potassium 4.5, Chloride 83 L, Carbon Dioxide 26.0, Anion Gap 10, BUN 14, Creatinine 0.64, Estim Creat Clear Calc 37.25, Est GFR (MDRD) Af Amer 116, Est GFR (MDRD) Non-Af 96, BUN/Creatinine Ratio 22.0 H, Glucose 111 H, Calcium 7.6 L Current Medications Carvedilol (Coreg) 6.25 mg PO BID [facility] Last Admin: 12/02/18 08:54 Dose: 6.25 mg Clonazepam (Klonopin) 0.25 mg PO QHS [facility] Last Admin: 12/01/18 23:01 Dose: 0.25 mg Digoxin (Lanoxin) 125 mcg PO DAILY [facility] Last Admin: 12/02/18 08:54 Dose: 125 mcg Estradiol (Estradiol) 0.5 mg PO DAILY [facility] Last Admin: 12/02/18 08:54 Dose: 0.5 mg Furosemide (Lasix) 20 mg IV Q8 [facility] Last Admin: 12/02/18 05:55 Dose: Not Given Haloperidol Lactate (Haloperidol Lactate) 1 mg PO BID [facility] Heparin Sodium (Porcine) (Heparin Na) 5,000 unit SC Q8 [facility] Last Admin: 12/02/18 05:34 Dose: 5,000 unit Sodium Chloride () 500 mls @ 999 mls/hr IV .Q31M ONE Last Admin: 12/01/18 18:00 Dose: 999 mls/hr Sodium Chloride () 250 mls @ 15 mls/hr IV .[id number] PRN PRN Reason: SALINE FLUSH Imipramine HCl (Tofranil) 50 mg PO QHS [facility] Last Admin: 12/01/18 23:02 Dose: 50 mg Levofloxacin (Levaquin Tablet) 500 mg PO DAILY@0600 [facility] Last Admin: 12/02/18 05:34 Dose: 500 mg Magnesium Oxide (Mag-Ox 400) 200 mg PO DAILY [facility] Last Admin: 12/02/18 08:56 Dose: 200 mg Mirtazapine (Remeron) 15 mg PO QHS [facility] Last Admin: 12/01/18 23:02 Dose: 15 mg Nutritional Formula (Lactose Free) (Ensure Enlive) 120 ml PO 4X/DAY [facility] Last Admin: 12/02/18 08:49 Dose: 120 ml Prochlorperazine Maleate (Compazine Tablet) 5 mg PO DAILY PRN PRN PRN Reason: nausea and vomiting Propafenone HCl (Rythmol) 150 mg PO Q8 [facility] Last Admin: 12/02/18 06:00 Dose: 150 mg Sertraline HCl (Zoloft) 50 mg PO DAILY [facility] Last Admin: 12/02/18 08:58 Dose: 50 mg Sodium Chloride () 5 - 15 ml IV UD PRN PRN Reason: SALINE FLUSH Last Admin: 12/01/18 23:05 Dose: 10 ml Thyroid ([place] Thyroid) 30 mg PO DAILY [facility] Last Admin: 12/02/18 10:25 Dose: 30 mg Tramadol HCl (Ultram) 25 mg PO Q6H PRN PRN Reason: pain Last Admin: 12/02/18 09:04 Dose: 25 mg Medical Necessity - Tobacco Use Smoking Status: Never smoker Tobacco Use: Non-smoker Assessment/Plan All Active Problems (Last Updated 12/02/18 @ 01:59 by Nicolas Thakur DO) Hyponatremia (Acute) CAP (community acquired pneumonia) (Acute) Mild dehydration (Acute) Shortness of breath (Acute) Hypotension (Resolved) 1. Acute hypoxia secondary to acute diastolic congestive heart failure/hyponatremia/chronic A. fib with RVR/HTN -Echo demonstrates an EF of 40% as well as stage III diastolic dysfunction -There is also a large left pleural effusion -Continue with Lasix 20 mg IV 3 times daily and a fluid restriction -Her hyponatremia is likely secondary to hypervolemia -If her sodium does not improve with Lasix and fluid restriction, will consult nephrology -Also home on imipramine, and Zoloft that both can cause SIADH, and propafenone can cause CHF -Continue with her digoxin -Apparently her primary care physician took her off of Xarelto, this is likely to her possibly being a fall risk though she will need to follow-up with him as an outpatient on discharge 2. Possible community-acquired pneumonia -Continue with Levaquin at 500 mg daily -She did develop a slight leukocytosis this morning to 11 up from 6.4 -Continue to monitor 3. Hypothyroidism -She is on pork thyroid, will check TSH -Continue with her home thyroid medication 4. There is some question whether or not she is compliant with her medications and therefore I am hesitant to restart all of the medications that are indicated as her home meds. DVT: Lovenox Code Visit Inpatient E&M: 01651 Subs Hosp L2
[2018-12-02 15:32] LABS: Thyroid Stim Hormone (TSH) 1.44 uIU/mL (0.358-3.74)
[2018-12-02] MEDS: Mirtazapine 15 MG Tablet PO (21:26)
[2018-12-02] MEDS: Imipramine HCl 25 MG Tablet 50 MG PO (21:26)
[2018-12-02] MEDS: Haloperidol Lactate 10 MG/5 ML UDC PO (21:34)
[2018-12-02] MEDS: clonazePAM 0.5 MG Tablet 0.25 MG PO (21:34)
[2018-12-02] MEDS: 0.9% NaCl Peripheral Flush Adult/Peds IV (21:41)
[2018-12-03] VITALS (17 sets, daily range): BP systolic 95–110; BP diastolic 50–69; PULSE 76–108; RESP 16–18; TEMP 36.3–37.1; O2SAT 93–99
[2018-12-03] MEDS: Furosemide 20 MG/2 ML VIAL IV ×3 (05:28→21:18)
[2018-12-03] MEDS: Heparin Injection (Vial) 5,000 UNIT/ML VIAL 5000 UNIT SC ×3 (05:28→21:18)
[2018-12-03] MEDS: levoFLOXacin 500 MG Tablet PO (05:28)
[2018-12-03] MEDS: Propafenone 150 MG Tablet PO ×3 (05:28→21:17)
[2018-12-03 06:45] LABS: Absolute Neutrophil Count 5.6 X10^3/uL (2.0-7.7); Basophil# 0.01 X10^3/uL; Basophil% 0.1 % (0-1); Eosinophil# 0.01 X10^3/uL; Eosinophils% 0.1 % (0-5); Hematocrit 39.5 % (37-47); Hemoglobin 13.8 g/dl (12.0-15.0); Lymphocyte % 12.2 % (19-41); Mean Corp Hgb Conc 34.9 g/gl (32-36); Mean Corpuscular Hgb 31.3 pg (27.0-32.0); Mean Corpuscular Volume 89.6 fL (81-99); Mean Platelet Vol. 11.9 fl (6.2-12.0); Monocyte# 0.87 X10^3/uL; Monocyte% 11.8 % (0-10); Neutrophil # 5.57 X10^3/uL (2.7-7.7); Neutrophil % 75.7 % (47-70); Platelet Count 197 K/mm3 (150-450); RBC Distribution Width CV 12.9 % (11.6-14.6); Red Blood Count 4.41 M/mm3 (4.2-5.4); White Blood Count 7.4 K/mm3 (4.4-11.0)
[2018-12-03 06:47] LABS: POSITIVE COUNT NO; POSITIVE DIFFERENTIAL NO; POSITIVE MORPHOLOGY NO
[2018-12-03 06:57] LABS: Anion Gap 9 (5-15); BUN 17 mg/dL (7-18); Calcium,Total 7.7 mg/dL (8.5-10.1); Chloride 79 mmol/L (98-107); Creatinine, Serum 0.85 mg/dL (0.55-1.02); EST Glomerular Filtration Rate 69 mL/min (>60); Est Glom Filt Rate - Afr Amer 84 mL/min (>60); Estimated Creatinine Clearance 44.44 ml/min; Glucose 100 mg/dL (74-106); Potassium 3.8 mmol/L (3.5-5.1); Sodium Level 120 mmol/L (136-145)
[2018-12-03] MEDS: Carvedilol 6.25 MG Tablet PO ×2 (09:07→21:17)
[2018-12-03] MEDS: Thyroid 15 MG Tablet 30 MG PO (09:08)
[2018-12-03] MEDS: Estradiol 0.5 MG Tablet PO (09:09)
[2018-12-03] MEDS: Haloperidol Lactate 10 MG/5 ML UDC PO ×2 (09:09→21:17)
[2018-12-03] MEDS: Polyethylene Glycol 3350 17 GM PACKET PO (09:10)
[2018-12-03] MEDS: Magnesium Oxide 400 MG Tablet 200 MG PO (09:10)
[2018-12-03] MEDS: Digoxin 125 MCG Tablet PO (09:10)
[2018-12-03] MEDS: Sertraline 50 MG Tablet PO (09:11)
[2018-12-03] MEDS: 0.9% NaCl Peripheral Flush Adult/Peds IV ×2 (14:07→21:18)
--- NOTE | 2018-12-03 16:24 | PCM.PN.HOSP ---
Patient Problems: Active and Suspected Problems (Last Updated 12/02/18 @ 01:59 by Nicolas Thakur DO) Sepsis (Suspected) Hyponatremia (Acute) CAP (community acquired pneumonia) (Acute) Mild dehydration (Acute) Shortness of breath (Acute) Subjective: Feeling better than when she did when she first came in, no issues overnight Vitals/I&O's: Vital Signs Temp Pulse Resp BP Pulse Ox 97.5 F L 99 16 95/61 95 12/03/18 14:04 12/03/18 14:43 12/03/18 14:04 12/03/18 14:04 12/03/18 14:04 Oxygen Flow Rate (L/min) 1 Oxygen Delivery Method Nasal Cannula Weight: 110 lb 3.698 oz Body Mass Index (BMI) 17.0 Intake and Output for Last 24 Hours 12/01/18 12/02/18 12/03/18 23:59 23:59 23:59 Intake Total 460 / 460 1230 / 1230 300 / 300 Output Total 300 / 300 Balance 460 / 460 930 / 930 300 / 300 General: Alert, Oriented x3, Cooperative, No apparent distress HEENT: Atraumatic, PERRLA, EOMI, Normocephalic Oral: Moist Mucosa Neck: Supple, No JVD, Trachea Midline Lungs: Clear to auscultation, Normal air movement, No rhonchi, No wheeze, No rales Cardiovascular: Regular rate, Regular Rhythm, Normal S1, Normal S2, No murmurs Abdomen: Soft, Non Tender, Non-Distended, No Hepato-splenomegaly Extremities: No edema, Capillary Refill Less than 3 Seconds Skin: No rashes, No breakdown Neurological: Neuro grossly intact, Sensory exam intact to light touch and pain Psych/Mental Status: Normal Affect, Appropriate Microbiology Past 72 Hours 12/01/18 21:20 Urine, Clean Catch Streptococcus pneumoniae Antigen (M - Final 12/01/18 21:20 Urine, Clean Catch Legionella Antigen - Final 12/01/18 17:40 Mucosa - Nose Influenza Types A,B Direct FA (OMAR) - Final Laboratory Results 12/03/18 05:57: WBC 7.4, RBC 4.41, Hgb 13.8, Hct 39.5, MCV 89.6, MCH 31.3, MCHC 34.9, RDW 12.9, RDW Differential 42.0, Plt Count 197, MPV 11.9, Immature Gran % (Auto) 0.100, Neut % (Auto) 75.7 H, Lymph % (Auto) 12.2 L, [place] % (Auto) 11.8 H, Eos % (Auto) 0.1, Baso % (Auto) 0.1, Absolute Neuts (auto) 5.6, Absolute Lymphs (auto) 0.90, Total Counted Not Reportable 12/03/18 05:57: Sodium 120 L, Potassium 3.8, Chloride 79 L, Carbon Dioxide 32.0, Anion Gap 9, BUN 17, Creatinine 0.85, Estim Creat Clear Calc 44.44, Est GFR (MDRD) Af Amer 84, Est GFR (MDRD) Non-Af 69, BUN/Creatinine Ratio 20.0, Glucose 100, Calcium 7.7 L Current Medications Carvedilol (Coreg) 6.25 mg PO BID [facility] Last Admin: 12/03/18 09:07 Dose: 6.25 mg Clonazepam (Klonopin) 0.25 mg PO QHS [facility] Last Admin: 12/02/18 21:34 Dose: 0.25 mg Digoxin (Lanoxin) 125 mcg PO DAILY [facility] Last Admin: 12/03/18 09:10 Dose: 125 mcg Estradiol (Estradiol) 0.5 mg PO DAILY [facility] Last Admin: 12/03/18 09:09 Dose: 0.5 mg Furosemide (Lasix) 20 mg IV Q8 [facility] Last Admin: 12/03/18 14:03 Dose: 20 mg Haloperidol Lactate (Haloperidol Lactate) 1 mg PO BID [facility] Last Admin: 12/03/18 09:09 Dose: 1 mg Heparin Sodium (Porcine) (Heparin Na) 5,000 unit SC Q8 [facility] Last Admin: 12/03/18 14:03 Dose: 5,000 unit Sodium Chloride () 250 mls @ 15 mls/hr IV .[id number] PRN PRN Reason: SALINE FLUSH Imipramine HCl (Tofranil) 50 mg PO QHS [facility] Last Admin: 12/02/18 21:26 Dose: 50 mg Levofloxacin (Levaquin Tablet) 500 mg PO DAILY@0600 [facility] Last Admin: 12/03/18 05:28 Dose: 500 mg Magnesium Oxide (Mag-Ox 400) 200 mg PO DAILY [facility] Last Admin: 12/03/18 09:10 Dose: 200 mg Mirtazapine (Remeron) 15 mg PO QHS [facility] Last Admin: 12/02/18 21:26 Dose: 15 mg Nutritional Formula (Lactose Free) (Ensure Enlive) 120 ml PO 4X/DAY [facility] Last Admin: 12/03/18 14:04 Dose: Not Given Polyethylene Glycol (Miralax) 17 gm PO DAILY [facility] Last Admin: 12/03/18 09:10 Dose: 17 gm Prochlorperazine Maleate (Compazine Tablet) 5 mg PO DAILY PRN PRN PRN Reason: nausea and vomiting Propafenone HCl (Rythmol) 150 mg PO Q8 [facility] Last Admin: 12/03/18 14:03 Dose: 150 mg Sertraline HCl (Zoloft) 50 mg PO DAILY [facility] Last Admin: 12/03/18 09:11 Dose: 50 mg Sodium Chloride () 5 - 15 ml IV UD PRN PRN Reason: SALINE FLUSH Last Admin: 12/03/18 14:07 Dose: 10 ml Thyroid ([place] Thyroid) 30 mg PO DAILY [facility] Last Admin: 12/03/18 09:08 Dose: 30 mg Tramadol HCl (Ultram) 25 mg PO Q6H PRN PRN Reason: pain Last Admin: 12/02/18 09:04 Dose: 25 mg Medical Necessity - Tobacco Use Smoking Status: Never smoker Tobacco Use: Non-smoker Assessment/Plan All Active Problems (Last Updated 12/02/18 @ 01:59 by Nicolas Thakur DO) Hyponatremia (Acute) CAP (community acquired pneumonia) (Acute) Mild dehydration (Acute) Shortness of breath (Acute) Hypotension (Resolved) 1. Acute hypoxia secondary to acute diastolic congestive heart failure/hyponatremia/chronic A. fib with RVR/HTN -Echo demonstrates an EF of 40% as well as stage III diastolic dysfunction -There is also a large left pleural effusion -Continue with Lasix 20 mg IV 3 times daily and a fluid restriction -Her hyponatremia is likely secondary to hypervolemia -If her sodium does not improve with Lasix and fluid restriction, will consult nephrology -Also home on imipramine, and Zoloft that both can cause SIADH, and propafenone can cause CHF -Continue with her digoxin -Apparently her primary care physician took her off of Xarelto, this is likely to her possibly being a fall risk though she will need to follow-up with him as an outpatient on discharge -We will repeat chest x-ray in the morning to see if there are more making any progress -Family was concerned because they felt that she was slurring her words a little bit, if symptoms continue even with resolution of her hyponatremia, will proceed with an MRI. 2. Possible community-acquired pneumonia -Continue with Levaquin at 500 mg daily -No leukocytosis today -Continue to monitor 3. Hypothyroidism -She is on pork thyroid, TSH is 1.44 -Continue with her home thyroid medication 4. UA is consistent with a UTI her urine culture is pending DVT: Lovenox Code Visit Inpatient E&M: 33086 Subs Hosp L2
--- NOTE | 2018-12-03 16:28 | PN_ITS ---
Patient Problems: Active and Suspected Problems (Last Updated 12/02/18 @ 01:59 by Nicolas Thakur DO) Sepsis (Suspected) Hyponatremia (Acute) CAP (community acquired pneumonia) (Acute) Mild dehydration (Acute) Shortness of breath (Acute) Subjective: Feeling better than when she did when she first came in, no issues overnight Vitals/I&O's: Vital Signs Temp Pulse Resp BP Pulse Ox 97.5 F L 99 16 95/61 95 12/03/18 14:04 12/03/18 14:43 12/03/18 14:04 12/03/18 14:04 12/03/18 14:04 Oxygen Flow Rate (L/min) 1 Oxygen Delivery Method Nasal Cannula Weight: 110 lb 3.698 oz Body Mass Index (BMI) 17.0 Intake and Output for Last 24 Hours 12/01/18 12/02/18 12/03/18 23:59 23:59 23:59 Intake Total 460 / 460 1230 / 1230 300 / 300 Output Total 300 / 300 Balance 460 / 460 930 / 930 300 / 300 General: Alert, Oriented x3, Cooperative, No apparent distress HEENT: Atraumatic, PERRLA, EOMI, Normocephalic Oral: Moist Mucosa Neck: Supple, No JVD, Trachea Midline Lungs: Clear to auscultation, Normal air movement, No rhonchi, No wheeze, No rales Cardiovascular: Regular rate, Regular Rhythm, Normal S1, Normal S2, No murmurs Abdomen: Soft, Non Tender, Non-Distended, No Hepato-splenomegaly Extremities: No edema, Capillary Refill Less than 3 Seconds Skin: No rashes, No breakdown Neurological: Neuro grossly intact, Sensory exam intact to light touch and pain Psych/Mental Status: Normal Affect, Appropriate Microbiology Past 72 Hours 12/01/18 21:20 Urine, Clean Catch Streptococcus pneumoniae Antigen (M - Final 12/01/18 21:20 Urine, Clean Catch Legionella Antigen - Final 12/01/18 17:40 Mucosa - Nose Influenza Types A,B Direct FA ([facility]) - Final Laboratory Results 12/03/18 05:57: WBC 7.4, RBC 4.41, Hgb 13.8, Hct 39.5, MCV 89.6, MCH 31.3, MCHC 34.9, RDW 12.9, RDW Differential 42.0, Plt Count 197, MPV 11.9, Immature Gran % (Auto) 0.100, Neut % (Auto) 75.7 H, Lymph % (Auto) 12.2 L, Grainger % (Auto) 11.8 H, Eos % (Auto) 0.1, Baso % (Auto) 0.1, Absolute Neuts (auto) 5.6, Absolute Lymphs (auto) 0.90, Total Counted Not Reportable 12/03/18 05:57: Sodium 120 L, Potassium 3.8, Chloride 79 L, Carbon Dioxide 32.0, Anion Gap 9, BUN 17, Creatinine 0.85, Estim Creat Clear Calc 44.44, Est GFR (MDRD) Af Amer 84, Est GFR (MDRD) Non-Af 69, BUN/Creatinine Ratio 20.0, Glucose 100, Calcium 7.7 L Current Medications Carvedilol (Coreg) 6.25 mg PO BID [facility] Last Admin: 12/03/18 09:07 Dose: 6.25 mg Clonazepam (Klonopin) 0.25 mg PO QHS [facility] Last Admin: 12/02/18 21:34 Dose: 0.25 mg Digoxin (Lanoxin) 125 mcg PO DAILY [facility] Last Admin: 12/03/18 09:10 Dose: 125 mcg Estradiol (Estradiol) 0.5 mg PO DAILY [facility] Last Admin: 12/03/18 09:09 Dose: 0.5 mg Furosemide (Lasix) 20 mg IV Q8 [facility] Last Admin: 12/03/18 14:03 Dose: 20 mg Haloperidol Lactate (Haloperidol Lactate) 1 mg PO BID [facility] Last Admin: 12/03/18 09:09 Dose: 1 mg Heparin Sodium (Porcine) (Heparin Na) 5,000 unit SC Q8 [facility] Last Admin: 12/03/18 14:03 Dose: 5,000 unit Sodium Chloride () 250 mls @ 15 mls/hr IV .[id number] PRN PRN Reason: SALINE FLUSH Imipramine HCl (Tofranil) 50 mg PO QHS [facility] Last Admin: 12/02/18 21:26 Dose: 50 mg Levofloxacin (Levaquin Tablet) 500 mg PO DAILY@0600 [facility] Last Admin: 12/03/18 05:28 Dose: 500 mg Magnesium Oxide (Mag-Ox 400) 200 mg PO DAILY [facility] Last Admin: 12/03/18 09:10 Dose: 200 mg Mirtazapine (Remeron) 15 mg PO QHS [facility] Last Admin: 12/02/18 21:26 Dose: 15 mg Nutritional Formula (Lactose Free) (Ensure Enlive) 120 ml PO 4X/DAY [facility] Last Admin: 12/03/18 14:04 Dose: Not Given Polyethylene Glycol (Miralax) 17 gm PO DAILY [facility] Last Admin: 12/03/18 09:10 Dose: 17 gm Prochlorperazine Maleate (Compazine Tablet) 5 mg PO DAILY PRN PRN PRN Reason: nausea and vomiting Propafenone HCl (Rythmol) 150 mg PO Q8 [facility] Last Admin: 12/03/18 14:03 Dose: 150 mg Sertraline HCl (Zoloft) 50 mg PO DAILY [facility] Last Admin: 12/03/18 09:11 Dose: 50 mg Sodium Chloride () 5 - 15 ml IV UD PRN PRN Reason: SALINE FLUSH Last Admin: 12/03/18 14:07 Dose: 10 ml Thyroid ([place] Thyroid) 30 mg PO DAILY [facility] Last Admin: 12/03/18 09:08 Dose: 30 mg Tramadol HCl (Ultram) 25 mg PO Q6H PRN PRN Reason: pain Last Admin: 12/02/18 09:04 Dose: 25 mg Medical Necessity - Tobacco Use Smoking Status: Never smoker Tobacco Use: Non-smoker Assessment/Plan All Active Problems (Last Updated 12/02/18 @ 01:59 by Nicolas Thakur DO) Hyponatremia (Acute) CAP (community acquired pneumonia) (Acute) Mild dehydration (Acute) Shortness of breath (Acute) Hypotension (Resolved) 1. Acute hypoxia secondary to acute diastolic congestive heart failure/hyponatremia/chronic A. fib with RVR/HTN -Echo demonstrates an EF of 40% as well as stage III diastolic dysfunction -There is also a large left pleural effusion -Continue with Lasix 20 mg IV 3 times daily and a fluid restriction -Her hyponatremia is likely secondary to hypervolemia -If her sodium does not improve with Lasix and fluid restriction, will consult nephrology -Also home on imipramine, and Zoloft that both can cause SIADH, and propafenone can cause CHF -Continue with her digoxin -Apparently her primary care physician took her off of Xarelto, this is likely to her possibly being a fall risk though she will need to follow-up with him as an outpatient on discharge -We will repeat chest x-ray in the morning to see if there are more making any progress -Family was concerned because they felt that she was slurring her words a little bit, if symptoms continue even with resolution of her hyponatremia, will proceed with an MRI. 2. Possible community-acquired pneumonia -Continue with Levaquin at 500 mg daily -No leukocytosis today -Continue to monitor 3. Hypothyroidism -She is on pork thyroid, TSH is 1.44 -Continue with her home thyroid medication 4. UA is consistent with a UTI her urine culture is pending DVT: Lovenox Code Visit Inpatient E&M: 21677 Subs Hosp L2
[2018-12-03] MEDS: traMADol 50 MG Tablet 25 MG PO (18:09)
--- NOTE | 2018-12-03 19:00 | NURSING ---
pt care and medical technician by SN Disha, done under the supervision of this RN.
[2018-12-03] MEDS: Imipramine HCl 25 MG Tablet 50 MG PO (21:17)
[2018-12-03] MEDS: Mirtazapine 15 MG Tablet PO (21:17)
[2018-12-03] MEDS: clonazePAM 0.5 MG Tablet 0.25 MG PO (21:18)
[2018-12-04] VITALS (12 sets, daily range): BP systolic 92–106; BP diastolic 50–67; PULSE 78–102; RESP 16–20; TEMP 36.4–36.6; O2SAT 93–98
[2018-12-04] MEDS: Heparin Injection (Vial) 5,000 UNIT/ML VIAL 5000 UNIT SC ×3 (05:24→22:01)
[2018-12-04] MEDS: Furosemide 20 MG/2 ML VIAL IV ×3 (05:24→22:01)
[2018-12-04] MEDS: 0.9% NaCl Peripheral Flush Adult/Peds IV (05:25)
[2018-12-04] MEDS: levoFLOXacin 500 MG Tablet PO (05:25)
[2018-12-04] MEDS: Propafenone 150 MG Tablet PO ×3 (05:25→22:02)
--- NOTE | 2018-12-04 06:10 | RAD_ITS ---
STUDY: X-RAY CHEST REASON FOR EXAM: Female, 78 years old. Pleural effusions. TECHNIQUE: PA and lateral views of the chest. COMPARISON: Comparison is made with prior examination dated December 02, 2018. FINDINGS: EKG electrodes are seen. Since prior study, there has been improvement in the bilateral pleural effusions. Persistent small bilateral effusions with underlying atelectasis and/or infiltration worse on the right side. There is no evidence of CHF at this time. Normal size heart. Normal mediastinum and clari. Normal visualized pulmonary arteries. Normal visualized aortic arch and descending thoracic aorta. There are diffuse degenerative changes of the visualized thoracic spine. Normal visualized ribs, clavicles, and shoulders. There is no demonstrated abnormality of the visualized soft tissue structures of the upper abdomen. RAD/Chest PA and Lateral IMPRESSION: Interval decrease in size of the bilateral pleural effusions. Persistent bilateral effusions and underlying infiltration and/or atelectasis is worse on the right side. Electronically Signed: Josiah Araujo, at 10:00 EDT , Service support ,
[2018-12-04 06:34] LABS: Anion Gap 7 (5-15); BUN 20 mg/dL (7-18); BUN/Creat Ratio 22.7 RATIO (10-20); Calcium,Total 7.8 mg/dL (8.5-10.1); Chloride 79 mmol/L (98-107); Creatinine, Serum 0.88 mg/dL (0.55-1.02); EST Glomerular Filtration Rate 66 mL/min (>60); Est Glom Filt Rate - Afr Amer 80 mL/min (>60); Estimated Creatinine Clearance 42.93 ml/min; Glucose 97 mg/dL (74-106); Potassium 3.4 mmol/L (3.5-5.1); Sodium Level 123 mmol/L (136-145)
[2018-12-04] MEDS: Haloperidol Lactate 10 MG/5 ML UDC PO ×2 (08:17→22:06)
[2018-12-04] MEDS: Bisacodyl 5 MG Tablet PO (08:17)
[2018-12-04] MEDS: Carvedilol 6.25 MG Tablet PO ×2 (08:17→22:01)
[2018-12-04] MEDS: Sertraline 50 MG Tablet PO (08:17)
[2018-12-04] MEDS: Thyroid 15 MG Tablet 30 MG PO (08:17)
[2018-12-04] MEDS: traMADol 50 MG Tablet 25 MG PO (08:17)
[2018-12-04] MEDS: Digoxin 125 MCG Tablet PO (08:18)
[2018-12-04] MEDS: Estradiol 0.5 MG Tablet PO (08:18)
[2018-12-04] MEDS: Magnesium Oxide 400 MG Tablet 200 MG PO (08:19)
[2018-12-04] MEDS: Polyethylene Glycol 3350 17 GM PACKET PO (08:26)
--- NOTE | 2018-12-04 13:07 | PCM.PN.HOSP ---
Patient Problems: Active and Suspected Problems (Last Updated 12/02/18 @ 01:59 by Nicolas Thakur DO) Sepsis (Suspected) Hyponatremia (Acute) CAP (community acquired pneumonia) (Acute) Mild dehydration (Acute) Shortness of breath (Acute) Subjective: Doing well, no issues overnight. Feels better than when she came in though no significant change from yesterday. Vitals/I&O's: Vital Signs Temp Pulse Resp BP Pulse Ox 97.5 F L 78 20 H 92/54 L 96 12/04/18 10:58 12/04/18 11:01 12/04/18 10:58 12/04/18 10:58 12/04/18 10:58 Oxygen Flow Rate (L/min) 2 Oxygen Delivery Method Room Air Weight: 106 lb 11.26 oz Body Mass Index (BMI) 17.0 Intake and Output for Last 24 Hours 12/02/18 12/03/18 12/04/18 23:59 23:59 23:59 Intake Total 1230 / 1230 600 / 600 360 / 360 Output Total 300 / 300 Balance 930 / 930 600 / 600 360 / 360 General: Alert, Oriented x3, Cooperative, No apparent distress HEENT: Atraumatic, PERRLA, EOMI, Normocephalic Oral: Moist Mucosa Neck: Supple, No JVD, Trachea Midline Lungs: Clear to auscultation, Normal air movement, No rhonchi, No wheeze, No rales Cardiovascular: Regular rate, Regular Rhythm, Normal S1, Normal S2, No murmurs Abdomen: Soft, Non Tender, Non-Distended, No Hepato-splenomegaly Extremities: No edema, Capillary Refill Less than 3 Seconds Skin: No rashes, No breakdown Neurological: Neuro grossly intact, Sensory exam intact to light touch and pain Psych/Mental Status: Normal Affect, Appropriate Microbiology Past 72 Hours 12/01/18 21:20 Urine, Clean Catch Urine Culture - Preliminary Culture exhibits no growth. 12/01/18 21:20 Urine, Clean Catch Streptococcus pneumoniae Antigen (M - Final 12/01/18 21:20 Urine, Clean Catch Legionella Antigen - Final 12/01/18 17:40 Mucosa - Nose Influenza Types A,B Direct FA ([facility]) - Final Laboratory Results 12/04/18 05:50: Sodium 123 L, Potassium 3.4 L, Chloride 79 L, Carbon Dioxide 37.0 H, Anion Gap 7, BUN 20 H, Creatinine 0.88, Estim Creat Clear Calc 42.93, Est GFR (MDRD) Af Amer 80, Est GFR (MDRD) Non-Af 66, BUN/Creatinine Ratio 22.7 H, Glucose 97, Calcium 7.8 L Current Medications Bisacodyl (Dulcolax) 5 mg PO DAILY [facility] Last Admin: 12/04/18 08:17 Dose: 5 mg Carvedilol (Coreg) 6.25 mg PO BID [facility] Last Admin: 12/04/18 08:17 Dose: 6.25 mg Clonazepam (Klonopin) 0.25 mg PO QHS [facility] Last Admin: 12/03/18 21:18 Dose: 0.25 mg Digoxin (Lanoxin) 125 mcg PO DAILY [facility] Last Admin: 12/04/18 08:18 Dose: 125 mcg Estradiol (Estradiol) 0.5 mg PO DAILY [facility] Last Admin: 12/04/18 08:18 Dose: 0.5 mg Furosemide (Lasix) 20 mg IV Q8 [facility] Last Admin: 12/04/18 05:24 Dose: 20 mg Haloperidol Lactate (Haloperidol Lactate) 1 mg PO BID [facility] Last Admin: 12/04/18 08:17 Dose: 1 mg Heparin Sodium (Porcine) (Heparin Na) 5,000 unit SC Q8 [facility] Last Admin: 12/04/18 05:24 Dose: 5,000 unit Sodium Chloride () 250 mls @ 15 mls/hr IV .[id number] PRN PRN Reason: SALINE FLUSH Imipramine HCl (Tofranil) 50 mg PO QHS [facility] Last Admin: 12/03/18 21:17 Dose: 50 mg Levofloxacin (Levaquin Tablet) 500 mg PO DAILY@0600 [facility] Last Admin: 12/04/18 05:25 Dose: 500 mg Magnesium Oxide (Mag-Ox 400) 200 mg PO DAILY [facility] Last Admin: 12/04/18 08:19 Dose: 200 mg Mirtazapine (Remeron) 15 mg PO QHS [facility] Last Admin: 12/03/18 21:17 Dose: 15 mg Nutritional Formula (Lactose Free) (Ensure Enlive) 60 ml PO 4X/DAY [facility] Last Admin: 12/04/18 08:20 Dose: 60 ml Polyethylene Glycol (Miralax) 17 gm PO DAILY [facility] Last Admin: 12/04/18 08:26 Dose: 17 gm Prochlorperazine Maleate (Compazine Tablet) 5 mg PO DAILY PRN PRN PRN Reason: nausea and vomiting Propafenone HCl (Rythmol) 150 mg PO Q8 [facility] Last Admin: 12/04/18 05:25 Dose: 150 mg Sertraline HCl (Zoloft) 50 mg PO DAILY [facility] Last Admin: 12/04/18 08:17 Dose: 50 mg Sodium Chloride () 5 - 15 ml IV UD PRN PRN Reason: SALINE FLUSH Last Admin: 12/04/18 05:25 Dose: 10 ml Thyroid ([place] Thyroid) 30 mg PO DAILY [facility] Last Admin: 12/04/18 08:17 Dose: 30 mg Tramadol HCl (Ultram) 25 mg PO Q6H PRN PRN Reason: pain Last Admin: 12/04/18 08:17 Dose: 25 mg Medical Necessity - Tobacco Use Smoking Status: Never smoker Tobacco Use: Non-smoker Assessment/Plan All Active Problems (Last Updated 12/02/18 @ 01:59 by Nicolas Thakur DO) Hyponatremia (Acute) CAP (community acquired pneumonia) (Acute) Mild dehydration (Acute) Shortness of breath (Acute) Hypotension (Resolved) 1. Acute hypoxia secondary to acute diastolic congestive heart failure/hyponatremia/chronic A. fib with RVR/HTN -Echo demonstrates an EF of 40% as well as stage III diastolic dysfunction -Chest x-ray indicates a significant improvement in the bilateral pleural effusions. -Continue with Lasix 20 mg IV 3 times daily and a fluid restriction -Her hyponatremia is likely secondary to hypervolemia, and is now improved to 123 -Continue with her digoxin -Apparently her primary care physician took her off of Xarelto, because of frequent nosebleeds -Family was concerned because they felt that she was slurring her words a little bit, if symptoms continue even with resolution of her hyponatremia, will proceed with an MRI. Valuation and a swallow study, can proceed with an MRI if there is still no significant improvement in her speech patterns tomorrow. 2. Possible community-acquired pneumonia -Continue with Levaquin at 500 mg daily -No leukocytosis today -Continue to monitor 3. Hypothyroidism -She is on pork thyroid, TSH is 1.44 -Continue with her home thyroid medication 4. UA is consistent with a UTI her urine culture, however is negative DVT: Lovenox Code Visit Inpatient E&M: 62017 Subs Hosp L2
--- NOTE | 2018-12-04 13:10 | PN_ITS ---
Patient Problems: Active and Suspected Problems (Last Updated 12/02/18 @ 01:59 by Nicolas Thakur DO) Sepsis (Suspected) Hyponatremia (Acute) CAP (community acquired pneumonia) (Acute) Mild dehydration (Acute) Shortness of breath (Acute) Subjective: Doing well, no issues overnight. Feels better than when she came in though no s ignificant change from yesterday. Vitals/I&O's: Vital Signs Temp Pulse Resp BP Pulse Ox 97.5 F L 78 20 H 92/54 L 96 12/04/18 10:58 12/04/18 11:01 12/04/18 10:58 12/04/18 10:58 12/04/18 10:58 Oxygen Flow Rate (L/min) 2 Oxygen Delivery Method Room Air Weight: 106 lb 11.26 oz Body Mass Index (BMI) 17.0 Intake and Output for Last 24 Hours 12/02/18 12/03/18 12/04/18 23:59 23:59 23:59 Intake Total 1230 / 1230 600 / 600 360 / 360 Output Total 300 / 300 Balance 930 / 930 600 / 600 360 / 360 General: Alert, Oriented x3, Cooperative, No apparent distress HEENT: Atraumatic, PERRLA, EOMI, Normocephalic Oral: Moist Mucosa Neck: Supple, No JVD, Trachea Midline Lungs: Clear to auscultation, Normal air movement, No rhonchi, No wheeze, No rales Cardiovascular: Regular rate, Regular Rhythm, Normal S1, Normal S2, No murmurs Abdomen: Soft, Non Tender, Non-Distended, No Hepato-splenomegaly Extremities: No edema, Capillary Refill Less than 3 Seconds Skin: No rashes, No breakdown Neurological: Neuro grossly intact, Sensory exam intact to light touch and pain Psych/Mental Status: Normal Affect, Appropriate Microbiology Past 72 Hours 12/01/18 21:20 Urine, Clean Catch Urine Culture - Preliminary Culture exhibits no growth. 12/01/18 21:20 Urine, Clean Catch Streptococcus pneumoniae Antigen (M - Final 12/01/18 21:20 Urine, Clean Catch Legionella Antigen - Final 12/01/18 17:40 Mucosa - Nose Influenza Types A,B Direct FA ([facility]) - Final Laboratory Results 12/04/18 05:50: Sodium 123 L, Potassium 3.4 L, Chloride 79 L, Carbon Dioxide 37.0 H, Anion Gap 7, BUN 20 H, Creatinine 0.88, Estim Creat Clear Calc 42.93, Est GFR (MDRD) Af Amer 80, Est GFR (MDRD) Non-Af 66, BUN/Creatinine Ratio 22.7 H , Glucose 97, Calcium 7.8 L Current Medications Bisacodyl (Dulcolax) 5 mg PO DAILY [facility] Last Admin: 12/04/18 08:17 Dose: 5 mg Carvedilol (Coreg) 6.25 mg PO BID [facility] Last Admin: 12/04/18 08:17 Dose: 6.25 mg Clonazepam (Klonopin) 0.25 mg PO QHS [facility] Last Admin: 12/03/18 21:18 Dose: 0.25 mg Digoxin (Lanoxin) 125 mcg PO DAILY [facility] Last Admin: 12/04/18 08:18 Dose: 125 mcg Estradiol (Estradiol) 0.5 mg PO DAILY [facility] Last Admin: 12/04/18 08:18 Dose: 0.5 mg Furosemide (Lasix) 20 mg IV Q8 [facility] Last Admin: 12/04/18 05:24 Dose: 20 mg Haloperidol Lactate (Haloperidol Lactate) 1 mg PO BID [facility] Last Admin: 12/04/18 08:17 Dose: 1 mg Heparin Sodium (Porcine) (Heparin Na) 5,000 unit SC Q8 [facility] Last Admin: 12/04/18 05:24 Dose: 5,000 unit Sodium Chloride () 250 mls @ 15 mls/hr IV .[id number] PRN PRN Reason: SALINE FLUSH Imipramine HCl (Tofranil) 50 mg PO QHS [facility] Last Admin: 12/03/18 21:17 Dose: 50 mg Levofloxacin (Levaquin Tablet) 500 mg PO DAILY@0600 [facility] Last Admin: 12/04/18 05:25 Dose: 500 mg Magnesium Oxide (Mag-Ox 400) 200 mg PO DAILY [facility] Last Admin: 12/04/18 08:19 Dose: 200 mg Mirtazapine (Remeron) 15 mg PO QHS [facility] Last Admin: 12/03/18 21:17 Dose: 15 mg Nutritional Formula (Lactose Free) (Ensure Enlive) 60 ml PO 4X/DAY [facility] Last Admin: 12/04/18 08:20 Dose: 60 ml Polyethylene Glycol (Miralax) 17 gm PO DAILY [facility] Last Admin: 12/04/18 08:26 Dose: 17 gm Prochlorperazine Maleate (Compazine Tablet) 5 mg PO DAILY PRN PRN PRN Reason: nausea and vomiting Propafenone HCl (Rythmol) 150 mg PO Q8 [facility] Last Admin: 12/04/18 05:25 Dose: 150 mg Sertraline HCl (Zoloft) 50 mg PO DAILY [facility] Last Admin: 12/04/18 08:17 Dose: 50 mg Sodium Chloride () 5 - 15 ml IV UD PRN PRN Reason: SALINE FLUSH Last Admin: 12/04/18 05:25 Dose: 10 ml Thyroid ([place] Thyroid) 30 mg PO DAILY [facility] Last Admin: 12/04/18 08:17 Dose: 30 mg Tramadol HCl (Ultram) 25 mg PO Q6H PRN PRN Reason: pain Last Admin: 12/04/18 08:17 Dose: 25 mg Medical Necessity - Tobacco Use Smoking Status: Never smoker Tobacco Use: Non-smoker Assessment/Plan All Active Problems (Last Updated 12/02/18 @ 01:59 by Nicolas Thakur DO) Hyponatremia (Acute) CAP (community acquired pneumonia) (Acute) Mild dehydration (Acute) Shortness of breath (Acute) Hypotension (Resolved) 1. Acute hypoxia secondary to acute diastolic congestive heart failure/hypo natremia/chronic A. fib with RVR/HTN -Echo demonstrates an EF of 40% as well as stage III diastolic dysfunction -Chest x-ray indicates a significant improvement in the bilateral pleural effusions. -Continue with Lasix 20 mg IV 3 times daily and a fluid restriction -Her hyponatremia is likely secondary to hypervolemia, and is now improved to 123 -Continue with her digoxin -Apparently her primary care physician took her off of Xarelto, because of frequent nosebleeds -Family was concerned because they felt that she was slurring her words a little bit, if symptoms continue even with resolution of her hyponatremia, will proceed with an MRI. Valuation and a swallow study, can proceed with an MRI if there is still no significant improvement in her speech patterns tomorrow. 2. Possible community-acquired pneumonia -Continue with Levaquin at 500 mg daily -No leukocytosis today -Continue to monitor 3. Hypothyroidism -She is on pork thyroid, TSH is 1.44 -Continue with her home thyroid medication 4. UA is consistent with a UTI her urine culture, however is negative DVT: Lovenox Code Visit Inpatient E&M: 08466 Subs Hosp L2
[2018-12-04] MEDS: Bisacodyl 10 MG Suppository RECTAL (22:00)
[2018-12-04] MEDS: Mirtazapine 15 MG Tablet PO (22:01)
[2018-12-04] MEDS: Imipramine HCl 25 MG Tablet 50 MG PO (22:01)
[2018-12-04] MEDS: clonazePAM 0.5 MG Tablet 0.25 MG PO (22:07)
[2018-12-05] VITALS (13 sets, daily range): BP systolic 96–110; BP diastolic 51–65; PULSE 80–108; RESP 16–18; TEMP 36.5–37.2; O2SAT 90–95
[2018-12-05] MEDS: Furosemide 20 MG/2 ML VIAL IV (06:05)
[2018-12-05] MEDS: levoFLOXacin 500 MG Tablet PO (06:05)
[2018-12-05] MEDS: Heparin Injection (Vial) 5,000 UNIT/ML VIAL 5000 UNIT SC ×3 (06:05→22:21)
[2018-12-05] MEDS: Propafenone 150 MG Tablet PO ×3 (06:05→22:26)
[2018-12-05 06:21] LABS: Absolute Lymphocyte Count 0.95 X10^3/ul (0.83-4.51); Absolute Neutrophil Count 5.9 X10^3/uL (2.0-7.7); Basophil# 0.01 X10^3/uL; Basophil% 0.1 % (0-1); Eosinophil# 0.02 X10^3/uL; Eosinophils% 0.3 % (0-5); Hematocrit 39.8 % (37-47); Hemoglobin 13.9 g/dl (12.0-15.0); Lymphocyte # 0.95 X10^3/ul (4.0); Lymphocyte % 12.1 % (19-41); Mean Corp Hgb Conc 34.9 g/gl (32-36); Mean Corpuscular Hgb 30.8 pg (27.0-32.0); Mean Corpuscular Volume 88.1 fL (81-99); Monocyte# 0.92 X10^3/uL; Monocyte% 11.7 % (0-10); Neutrophil # 5.91 X10^3/uL (2.7-7.7); Neutrophil % 75.5 % (47-70); Platelet Count 219 K/mm3 (150-450); RBC Distribution Width CV 12.6 % (11.6-14.6); RBC Distribution Width SD 39.8 fl (35.1-43.9); Red Blood Count 4.52 M/mm3 (4.2-5.4); White Blood Count 7.8 K/mm3 (4.4-11.0)
[2018-12-05 06:27] LABS: POSITIVE COUNT NO; POSITIVE DIFFERENTIAL NO; POSITIVE MORPHOLOGY NO
[2018-12-05 06:35] LABS: Anion Gap 8 (5-15); BUN 16 mg/dL (7-18); BUN/Creat Ratio 24.5 RATIO (10-20); Calcium,Total 7.5 mg/dL (8.5-10.1); Chloride 79 mmol/L (98-107); Creatinine, Serum 0.65 mg/dL (0.55-1.02); EST Glomerular Filtration Rate 94 mL/min (>60); Est Glom Filt Rate - Afr Amer 113 mL/min (>60); Estimated Creatinine Clearance 36.57 ml/min; Glucose 94 mg/dL (74-106); Potassium 3.1 mmol/L (3.5-5.1); Sodium Level 123 mmol/L (136-145)
[2018-12-05] MEDS: Magnesium Oxide 400 MG Tablet 200 MG PO (09:28)
[2018-12-05] MEDS: Digoxin 125 MCG Tablet PO (09:28)
[2018-12-05] MEDS: Haloperidol Lactate 10 MG/5 ML UDC PO ×2 (09:28→22:21)
[2018-12-05] MEDS: Estradiol 0.5 MG Tablet PO (09:29)
[2018-12-05] MEDS: Bisacodyl 5 MG Tablet PO (09:29)
[2018-12-05] MEDS: Thyroid 15 MG Tablet 30 MG PO (09:29)
[2018-12-05] MEDS: Carvedilol 6.25 MG Tablet PO ×2 (09:29→22:22)
--- NOTE | 2018-12-05 10:09 | PCM.PN.HOSP ---
Patient Problems: Active and Suspected Problems (Last Updated 12/02/18 @ 01:59 by Nicolas Thakur DO) Sepsis (Suspected) Hyponatremia (Acute) CAP (community acquired pneumonia) (Acute) Mild dehydration (Acute) Shortness of breath (Acute) Subjective: Her condition remains unchanged, her sodium is stable at 123. Swallowing evaluation yesterday was normal Vitals/I&O's: Vital Signs Temp Pulse Resp BP Pulse Ox 98.9 F 95 16 100/51 L 93 12/05/18 09:21 12/05/18 09:28 12/05/18 09:21 12/05/18 09:21 12/05/18 09:21 Oxygen Flow Rate (L/min) 2 Oxygen Delivery Method Room Air Weight: 105 lb 9.623 oz Body Mass Index (BMI) 17.0 Intake and Output for Last 24 Hours 12/03/18 12/04/18 12/05/18 23:59 23:59 23:59 Intake Total 600 / 600 560 / 560 120 / 120 Output Total 150 / 150 Balance 600 / 600 560 / 560 -30 / -30 General: Alert, Oriented x3, Cooperative, No apparent distress HEENT: Atraumatic, PERRLA, EOMI, Normocephalic Oral: Moist Mucosa Neck: Supple, No JVD, Trachea Midline Lungs: Clear to auscultation, Normal air movement, No rhonchi, No wheeze, No rales Cardiovascular: Regular rate, Regular Rhythm, Normal S1, Normal S2, No murmurs Abdomen: Soft, Non Tender, Non-Distended, No Hepato-splenomegaly Extremities: No edema, Capillary Refill Less than 3 Seconds Skin: No rashes, No breakdown Musculoskeletal: No Tenderness to Palpation of Joints or Extremities Neurological: Cranial nerves II-XII grossly intact, Neuro grossly intact, Motor Exam 5/5 strength throughout, Sensory exam intact to light touch and pain Psych/Mental Status: Normal Affect, Appropriate Microbiology Past 72 Hours 12/01/18 21:20 Urine, Clean Catch Urine Culture - Final Culture exhibits no growth. 12/01/18 17:52 Blood Culture (Wb) #2 - Left Forearm Blood Culture - Preliminary No growth in 48 hours. 12/01/18 17:52 Blood Culture (Wb) - Anticubital Left Blood Culture - Preliminary No growth in 48 hours. Laboratory Results 12/05/18 05:50: WBC 7.8, RBC 4.52, Hgb 13.9, Hct 39.8, MCV 88.1, MCH 30.8, MCHC 34.9, RDW 12.6, RDW Differential 39.8, Plt Count 219, MPV 11.0, Immature Gran % (Auto) 0.300, Neut % (Auto) 75.5 H, Lymph % (Auto) 12.1 L, [place] % (Auto) 11.7 H, Eos % (Auto) 0.3, Baso % (Auto) 0.1, Absolute Neuts (auto) 5.9, Absolute Lymphs (auto) 0.95, Total Counted Not Reportable 12/05/18 05:50: Sodium 123 L, Potassium 3.1 L, Chloride 79 L, Carbon Dioxide 36.0 H, Anion Gap 8, BUN 16, Creatinine 0.65, Estim Creat Clear Calc 36.57, Est GFR (MDRD) Af Amer 113, Est GFR (MDRD) Non-Af 94, BUN/Creatinine Ratio 24.5 H, Glucose 94, Calcium 7.5 L Current Medications Bisacodyl (Dulcolax) 5 mg PO DAILY [facility] Last Admin: 12/05/18 09:29 Dose: 5 mg Carvedilol (Coreg) 6.25 mg PO BID [facility] Last Admin: 12/05/18 09:29 Dose: 6.25 mg Clonazepam (Klonopin) 0.25 mg PO QHS [facility] Last Admin: 12/04/18 22:07 Dose: 0.25 mg Digoxin (Lanoxin) 125 mcg PO DAILY [facility] Last Admin: 12/05/18 09:28 Dose: 125 mcg Estradiol (Estradiol) 0.5 mg PO DAILY [facility] Last Admin: 12/05/18 09:29 Dose: 0.5 mg Furosemide (Lasix) 20 mg IV Q8 [facility] Last Admin: 12/05/18 06:05 Dose: 20 mg Haloperidol Lactate (Haloperidol Lactate) 1 mg PO BID [facility] Last Admin: 12/05/18 09:28 Dose: 1 mg Heparin Sodium (Porcine) (Heparin Na) 5,000 unit SC Q8 [facility] Last Admin: 12/05/18 06:05 Dose: 5,000 unit Sodium Chloride () 250 mls @ 15 mls/hr IV .[id number] PRN PRN Reason: SALINE FLUSH Imipramine HCl (Tofranil) 50 mg PO QHS [facility] Last Admin: 12/04/18 22:01 Dose: 50 mg Levofloxacin (Levaquin Tablet) 500 mg PO DAILY@0600 [facility] Last Admin: 12/05/18 06:05 Dose: 500 mg Magnesium Oxide (Mag-Ox 400) 200 mg PO DAILY [facility] Last Admin: 12/05/18 09:28 Dose: 200 mg Mirtazapine (Remeron) 15 mg PO QHS [facility] Last Admin: 12/04/18 22:01 Dose: 15 mg Nutritional Formula (Lactose Free) (Ensure Enlive) 60 ml PO 4X/DAY [facility] Last Admin: 12/05/18 09:36 Dose: 60 ml Polyethylene Glycol (Miralax) 17 gm PO DAILY [facility] Last Admin: 12/04/18 08:26 Dose: 17 gm Prochlorperazine Maleate (Compazine Tablet) 5 mg PO DAILY PRN PRN PRN Reason: nausea and vomiting Propafenone HCl (Rythmol) 150 mg PO Q8 [facility] Last Admin: 12/05/18 06:05 Dose: 150 mg Sertraline HCl (Zoloft) 50 mg PO DAILY [facility] Last Admin: 12/05/18 09:28 Dose: 50 mg Sodium Chloride () 5 - 15 ml IV UD PRN PRN Reason: SALINE FLUSH Last Admin: 12/04/18 05:25 Dose: 10 ml Thyroid ([place] Thyroid) 30 mg PO DAILY [facility] Last Admin: 12/05/18 09:29 Dose: 30 mg Tramadol HCl (Ultram) 25 mg PO Q6H PRN PRN Reason: pain Last Admin: 12/04/18 08:17 Dose: 25 mg Medical Necessity - Tobacco Use Smoking Status: Never smoker Tobacco Use: Non-smoker Assessment/Plan All Active Problems (Last Updated 12/02/18 @ 01:59 by Nicolas Thakur DO) Hyponatremia (Acute) CAP (community acquired pneumonia) (Acute) Mild dehydration (Acute) Shortness of breath (Acute) Hypotension (Resolved) 1. Acute hypoxia secondary to acute diastolic congestive heart failure/hyponatremia/chronic A. fib with RVR/HTN -Echo demonstrates an EF of 40% as well as stage III diastolic dysfunction -Chest x-ray indicates a significant improvement in the bilateral pleural effusions. -Continue with Lasix 20 po 2 times daily and a fluid restriction -Her hyponatremia is likely secondary to hypervolemia, though stable at 123, will consult nephrology -Continue with her digoxin -Apparently her primary care physician took her off of Xarelto, because of frequent nosebleeds -Family was concerned because they felt that she was slurring her words a little bit, will proceed with MRI of the brain today -Speech evaluation with swallow study was negative yesterday -Potassium was 3.1 and was replaced 2. Possible community-acquired pneumonia -Continue with Levaquin at 500 mg daily, she will receive her last dose tomorrow -No leukocytosis today -Continue to monitor 3. Hypothyroidism -She is on pork thyroid, TSH is 1.44 -Continue with her home thyroid medication 4. UA is consistent with a UTI her urine culture, however, is negative DVT: Gabrielx Code Visit Inpatient E&M: 69341 Subs Hosp L2
--- NOTE | 2018-12-05 10:21 | PN_ITS ---
Patient Problems: Active and Suspected Problems (Last Updated 12/02/18 @ 01:59 by Nicolas Thakur DO) Sepsis (Suspected) Hyponatremia (Acute) CAP (community acquired pneumonia) (Acute) Mild dehydration (Acute) Shortness of breath (Acute) Subjective: Her condition remains unchanged, her sodium is stable at 123. Swallowing evalua tion yesterday was normal Vitals/I&O's: Vital Signs Temp Pulse Resp BP Pulse Ox 98.9 F 95 16 100/51 L 93 12/05/18 09:21 12/05/18 09:28 12/05/18 09:21 12/05/18 09:21 12/05/18 09:21 Oxygen Flow Rate (L/min) 2 Oxygen Delivery Method Room Air Weight: 105 lb 9.623 oz Body Mass Index (BMI) 17.0 Intake and Output for Last 24 Hours 12/03/18 12/04/18 12/05/18 23:59 23:59 23:59 Intake Total 600 / 600 560 / 560 120 / 120 Output Total 150 / 150 Balance 600 / 600 560 / 560 -30 / -30 General: Alert, Oriented x3, Cooperative, No apparent distress HEENT: Atraumatic, PERRLA, EOMI, Normocephalic Oral: Moist Mucosa Neck: Supple, No JVD, Trachea Midline Lungs: Clear to auscultation, Normal air movement, No rhonchi, No wheeze, No rales Cardiovascular: Regular rate, Regular Rhythm, Normal S1, Normal S2, No murmurs Abdomen: Soft, Non Tender, Non-Distended, No Hepato-splenomegaly Extremities: No edema, Capillary Refill Less than 3 Seconds Skin: No rashes, No breakdown Musculoskeletal: No Tenderness to Palpation of Joints or Extremities Neurological: Cranial nerves II-XII grossly intact, Neuro grossly intact, Motor Exam 5/5 strength throughout, Sensory exam intact to light touch and pain Psych/Mental Status: Normal Affect, Appropriate Microbiology Past 72 Hours 12/01/18 21:20 Urine, Clean Catch Urine Culture - Final Culture exhibits no growth. 12/01/18 17:52 Blood Culture (Wb) #2 - Left Forearm Blood Culture - Preliminary No growth in 48 hours. 12/01/18 17:52 Blood Culture (Wb) - Anticubital Left Blood Culture - Prelimi nary No growth in 48 hours. Laboratory Results 12/05/18 05:50: WBC 7.8, RBC 4.52, Hgb 13.9, Hct 39.8, MCV 88.1, MCH 30.8, MCHC 34.9, RDW 12.6, RDW Differential 39.8, Plt Count 219, MPV 11.0, Immature Gran % (Auto) 0.300, Neut % (Auto) 75.5 H, Lymph % (Auto) 12.1 L, [place] % (Auto) 11.7 H, Eos % (Auto) 0.3, Baso % (Auto) 0.1, Absolute Neuts (auto) 5.9, Absolute Lymphs (auto) 0.95, Total Counted Not Reportable 12/05/18 05:50: Sodium 123 L, Potassium 3.1 L, Chloride 79 L, Carbon Dioxide 36.0 H, Anion Gap 8, BUN 16, Creatinine 0.65, Estim Creat Clear Calc 36.57, Est GFR (MDRD) Af Amer 113, Est GFR (MDRD) Non-Af 94, BUN/Creatinine Ratio 24.5 H, Glucose 94, Calcium 7.5 L Current Medications Bisacodyl (Dulcolax) 5 mg PO DAILY [facility] Last Admin: 12/05/18 09:29 Dose: 5 mg Carvedilol (Coreg) 6.25 mg PO BID [facility] Last Admin: 12/05/18 09:29 Dose: 6.25 mg Clonazepam (Klonopin) 0.25 mg PO QHS [facility] Last Admin: 12/04/18 22:07 Dose: 0.25 mg Digoxin (Lanoxin) 125 mcg PO DAILY [facility] Last Admin: 12/05/18 09:28 Dose: 125 mcg Estradiol (Estradiol) 0.5 mg PO DAILY [facility] Last Admin: 12/05/18 09:29 Dose: 0.5 mg Furosemide (Lasix) 20 mg IV Q8 [facility] Last Admin: 12/05/18 06:05 Dose: 20 mg Haloperidol Lactate (Haloperidol Lactate) 1 mg PO BID [facility] Last Admin: 12/05/18 09:28 Dose: 1 mg Heparin Sodium (Porcine) (Heparin Na) 5,000 unit SC Q8 [facility] Last Admin: 12/05/18 06:05 Dose: 5,000 unit Sodium Chloride () 250 mls @ 15 mls/hr IV .[id number] PRN PRN Reason: SALINE FLUSH Imipramine HCl (Tofranil) 50 mg PO QHS [facility] Last Admin: 12/04/18 22:01 Dose: 50 mg Levofloxacin (Levaquin Tablet) 500 mg PO DAILY@0600 [facility] Last Admin: 12/05/18 06:05 Dose: 500 mg Magnesium Oxide (Mag-Ox 400) 200 mg PO DAILY [facility] Last Admin: 12/05/18 09:28 Dose: 200 mg Mirtazapine (Remeron) 15 mg PO QHS [facility] Last Admin: 12/04/18 22:01 Dose: 15 mg Nutritional Formula (Lactose Free) (Ensure Enlive) 60 ml PO 4X/DAY [facility] Last Admin: 12/05/18 09:36 Dose: 60 ml Polyethylene Glycol (Miralax) 17 gm PO DAILY [facility] Last Admin: 12/04/18 08:26 Dose: 17 gm Prochlorperazine Maleate (Compazine Tablet) 5 mg PO DAILY PRN PRN PRN Reason: nausea and vomiting Propafenone HCl (Rythmol) 150 mg PO Q8 [facility] Last Admin: 12/05/18 06:05 Dose: 150 mg Sertraline HCl (Zoloft) 50 mg PO DAILY [facility] Last Admin: 12/05/18 09:28 Dose: 50 mg Sodium Chloride () 5 - 15 ml IV UD PRN PRN Reason: SALINE FLUSH Last Admin: 12/04/18 05:25 Dose: 10 ml Thyroid ([place] Thyroid) 30 mg PO DAILY [facility] Last Admin: 12/05/18 09:29 Dose: 30 mg Tramadol HCl (Ultram) 25 mg PO Q6H PRN PRN Reason: pain Last Admin: 12/04/18 08:17 Dose: 25 mg Medical Necessity - Tobacco Use Smoking Status: Never smoker Tobacco Use: Non-smoker Assessment/Plan All Active Problems (Last Updated 12/02/18 @ 01:59 by Nicolas Thakur DO) Hyponatremia (Acute) CAP (community acquired pneumonia) (Acute) Mild dehydration (Acute) Shortness of breath (Acute) Hypotension (Resolved) 1. Acute hypoxia secondary to acute diastolic congestive heart failure/hyponatremia/chronic A. fib with RVR/HTN -Echo demonstrates an EF of 40% as well as stage III diastolic dysfunction -Chest x-ray indicates a significant improvement in the bilateral pleural effusions. -Continue with Lasix 20 po 2 times daily and a fluid restriction -Her hyponatremia is likely secondary to hypervolemia, though stable at 123, will consult nephrology -Continue with her digoxin -Apparently her primary care physician took her off of Xarelto, because of frequent nosebleeds -Family was concerned because they felt that she was slurring her words a little bit, will proceed with MRI of the brain today -Speech evaluation with swallow study was negative yesterday -Potassium was 3.1 and was replaced 2. Possible community-acquired pneumonia -Continue with Levaquin at 500 mg daily, she will receive her last dose tomorrow -No leukocytosis today -Continue to monitor 3. Hypothyroidism -She is on pork thyroid, TSH is 1.44 -Continue with her home thyroid medication 4. UA is consistent with a UTI her urine culture, however, is negative DVT: Gabrielx Code Visit Inpatient E&M: 28783 Subs Hosp L2
--- NOTE | 2018-12-05 10:37 | PCM.CONS.R ---
Problem List (1) Hyponatremia Status: Acute Consultation - Renal PCP/ Referring MD: Requesting physician: [] Primary care physician: Daljit Sen DO - History of Present Illness History of Present Illness: The patient is a 78 year old F. Patient presented to the hospital emergency room with a complaint of nausea and shortness of breath. Patient was found to have low sodium level at 118. Also patient was found to have CHF with the x-ray finding bilateral pleural effusion along with a bibasilar opacities with atelectasis/pneumonia. Patient was started on Lasix IV 3 times daily. Sodium level improved slowly from 118-123 today over 3 days. Patient said her nausea disappeared and her breathing is better. Patient states she has been always hyponatremic but she does not know her baseline sodium level and is not available in the electronic system. Patient has been on Zoloft for a while. Patient admitted drinking plenty of water at home ROS : 12 systems review is negative today. [] - Allergies Allergies: Allergies gluten Allergy (Intermediate, Verified 12/01/18 16:49) Unknown lactose Allergy (Intermediate, Verified 12/01/18 16:49) unknown - Current Medications Current Medications: Current Medications Bisacodyl (Dulcolax) 5 mg PO DAILY [facility] Last Admin: 12/05/18 09:29 Dose: 5 mg Carvedilol (Coreg) 6.25 mg PO BID [facility] Last Admin: 12/05/18 09:29 Dose: 6.25 mg Clonazepam (Klonopin) 0.25 mg PO QHS [facility] Last Admin: 12/04/18 22:07 Dose: 0.25 mg Digoxin (Lanoxin) 125 mcg PO DAILY [facility] Last Admin: 12/05/18 09:28 Dose: 125 mcg Estradiol (Estradiol) 0.5 mg PO DAILY [facility] Last Admin: 12/05/18 09:29 Dose: 0.5 mg Furosemide (Lasix) 20 mg PO BID@1000,1800 [facility] Haloperidol Lactate (Haloperidol Lactate) 1 mg PO BID [facility] Last Admin: 12/05/18 09:28 Dose: 1 mg Heparin Sodium (Porcine) (Heparin Na) 5,000 unit SC Q8 [facility] Last Admin: 12/05/18 06:05 Dose: 5,000 unit Sodium Chloride () 250 mls @ 15 mls/hr IV .[id number] PRN PRN Reason: SALINE FLUSH Imipramine HCl (Tofranil) 50 mg PO QHS [facility] Last Admin: 12/04/18 22:01 Dose: 50 mg Levofloxacin (Levaquin Tablet) 500 mg PO DAILY@0600 [facility] Last Admin: 12/05/18 06:05 Dose: 500 mg Magnesium Oxide (Mag-Ox 400) 200 mg PO DAILY [facility] Last Admin: 12/05/18 09:28 Dose: 200 mg Mirtazapine (Remeron) 15 mg PO QHS [facility] Last Admin: 12/04/18 22:01 Dose: 15 mg Nutritional Formula (Lactose Free) (Ensure Enlive) 60 ml PO 4X/DAY [facility] Last Admin: 12/05/18 09:36 Dose: 60 ml Polyethylene Glycol (Miralax) 17 gm PO DAILY [facility] Last Admin: 12/04/18 08:26 Dose: 17 gm Prochlorperazine Maleate (Compazine Tablet) 5 mg PO DAILY PRN PRN PRN Reason: nausea and vomiting Propafenone HCl (Rythmol) 150 mg PO Q8 [facility] Last Admin: 12/05/18 06:05 Dose: 150 mg Sodium Chloride () 5 - 15 ml IV UD PRN PRN Reason: SALINE FLUSH Last Admin: 12/04/18 05:25 Dose: 10 ml Thyroid ([place] Thyroid) 30 mg PO DAILY [facility] Last Admin: 12/05/18 09:29 Dose: 30 mg Tramadol HCl (Ultram) 25 mg PO Q6H PRN PRN Reason: pain Last Admin: 12/04/18 08:17 Dose: 25 mg - Past Medical History Past Medical History (Chronic Problems): Chronic Problems (Last Updated 12/02/18 @ 01:59 by Nicolas Thakur DO) Paroxysmal atrial fibrillation (Chronic) Nonrheumatic mitral (valve) prolapse (Chronic) Hypothyroidism (Chronic) History of basal cell carcinoma (Chronic) Anxiety and depression (Chronic) History of cataract (Chronic) Heart murmur (Chronic) GERD (gastroesophageal reflux disease) (Chronic) IBS (irritable bowel syndrome) (Chronic) History of hepatitis (Chronic) Hormone replacement therapy (Chronic) - Past Surgical History Surgical History: cholecystectomy - Social History Smoking Status: Never smoker Alcohol: None Drugs: None - Family History Maternal Family History: Family History (Last Reviewed 10/09/18 @ 10:57 by Daljit Sen DO) Grandmother Colon cancer Grandfather Myocardial infarction Mother Heart disease Myocardial infarction Parkinsons History Items: No pertinent history Paternal Family History: Family History (Last Reviewed 10/09/18 @ 10:57 by Daljit Sen DO) Grandmother Colon cancer Grandfather Myocardial infarction Mother Heart disease Myocardial infarction Parkinsons History Items: No pertinent history Patient Problems: Active and Suspected Problems (Last Updated 12/02/18 @ 01:59 by Nicolas Thakur DO) Sepsis (Suspected) Hyponatremia (Acute) CAP (community acquired pneumonia) (Acute) Mild dehydration (Acute) Shortness of breath (Acute) - Physical Exam General: Alert, Oriented x3 HEENT: Atraumatic Oral: Moist Mucosa Neck: Supple, No JVD Lungs: Normal air movement, No rhonchi - Bilateral lung spaces crackles, - Cardiovascular: Regular rate, Regular Rhythm, Normal S1, Normal S2 Abdomen: Bowel Sounds Present, Soft, Non Tender Extremities: No clubbing, No cyanosis, No edema Skin: No rashes Musculoskeletal: No Tenderness to Palpation of Joints or Extremities Lymphatic: No Cervical, Supraclavicular, or Inguinal Adenopathy Neurological: Cranial nerves II-XII grossly intact, Neuro grossly intact Psych/Mental Status: Appropriate Vital Signs Temp Pulse Resp BP Pulse Ox 98.9 F 95 16 100/51 L 93 12/05/18 09:21 12/05/18 09:28 12/05/18 09:21 12/05/18 09:21 12/05/18 09:21 Oxygen Flow Rate (L/min) 2 Oxygen Delivery Method Room Air Weight: 47.9 kg Body Mass Index (BMI) 17.0 Intake and Output for Last 24 Hours 12/03/18 12/04/18 12/05/18 23:59 23:59 23:59 Intake Total 600 / 600 560 / 560 120 / 120 Output Total 150 / 150 Balance 600 / 600 560 / 560 -30 / -30 Microbiology Past 72 Hours 12/01/18 21:20 Urine Culture - Final Urine, Clean Catch Culture exhibits no growth. 12/01/18 17:52 Blood Culture - Preliminary Blood Culture (Wb) #2 - Left Forearm No growth in 48 hours. 12/01/18 17:52 Blood Culture - Preliminary Blood Culture (Wb) - Anticubital Left No growth in 48 hours. Laboratory Tests Past 24 Hrs 12/05/18 12/05/18 05:50 05:50 WBC 7.8 RBC 4.52 Hgb 13.9 Hct 39.8 MCV 88.1 MCH 30.8 MCHC 34.9 RDW 12.6 RDW Differential 39.8 Plt Count 219 MPV 11.0 Immature Gran % (Auto) 0.300 Neut % (Auto) 75.5 H Lymph % (Auto) 12.1 L [place] % (Auto) 11.7 H Eos % (Auto) 0.3 Baso % (Auto) 0.1 Absolute Neuts (auto) 5.9 Absolute Lymphs (auto) 0.95 Total Counted Not Reportable Sodium 123 L Potassium 3.1 L Chloride 79 L Carbon Dioxide 36.0 H Anion Gap 8 BUN 16 Creatinine 0.65 Estim Creat Clear Calc 36.57 Est GFR (MDRD) Af Amer 113 Est GFR (MDRD) Non-Af 94 BUN/Creatinine Ratio 24.5 H Glucose 94 Calcium 7.5 L Assessment/Plan All Active Problems (Last Updated 12/02/18 @ 01:59 by Nicolas Thakur DO) Hyponatremia (Acute) CAP (community acquired pneumonia) (Acute) Mild dehydration (Acute) Shortness of breath (Acute) Hypotension (Resolved) 1-hyponatremia with normovolemic status. Urine study is not accurate with Lasix so I will not order it. Patient has chronic hyponatremia . 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 He might be from CHF/high fluid intake at home Sodium level improved slowly with Lasix and fluid restriction. Patient is on 1200 cc fluid restriction. I agree with lasix 20 mg PO BID. Continue fluid restriction I will d/c Zoloft. Patient is to follow with her psychiatrist for alternative. No need for 3% sodium chloride. Please keep potassium within normal limit which would help to keep sodium from falling Check sodium level in the morning. Thank you for the consult. Renal team will continue to follow. Please call with any question at [phone] Plan of care was discussed with Dr.Kotsonis RIOS JOHNSON MD
--- NOTE | 2018-12-05 10:43 | CON.PCM_ITS ---
Problem List (1) Hyponatremia Status: Acute Consultation - Renal PCP/ Referring MD: Requesting physician: [] Primary care physician: Daljit Sen DO - History of Present Illness History of Present Illness: The patient is a 78 year old F. Patient presented to the hospital emergency room with a complaint of nausea and shortness of breath. Patient was found to have low sodium level at 118. Also patient was found to have CHF with the x-ray finding bilateral pleural effusion along with a bibasilar opacities with atelectasis/pneumonia. Patient was started on Lasix IV 3 times daily. Sodium level improved slowly from 118-123 today over 3 days. Patient said her nausea disappeared and her breathing is better. Patient states she has been always hyponatremic but she does not know her ba seline sodium level and is not available in the electronic system. Patient has been on Zoloft for a while. Patient admitted drinking plenty of water at home ROS : 12 systems review is negative today. [] - Allergies Allergies: Allergies gluten Allergy (Intermediate, Verified 12/01/18 16:49) Unknown lactose Allergy (Intermediate, Verified 12/01/18 16:49) unknown - Current Medications Current Medications: Current Medications Bisacodyl (Dulcolax) 5 mg PO DAILY [facility] Last Admin: 12/05/18 09:29 Dose: 5 mg Carvedilol (Coreg) 6.25 mg PO BID [facility] Last Admin: 12/05/18 09:29 Dose: 6.25 mg Clonazepam (Klonopin) 0.25 mg PO QHS [facility] Last Admin: 12/04/18 22:07 Dose: 0.25 mg Digoxin (Lanoxin) 125 mcg PO DAILY [facility] Last Admin: 12/05/18 09:28 Dose: 125 mcg Estradiol (Estradiol) 0.5 mg PO DAILY [facility] Last Admin: 12/05/18 09:29 Dose: 0.5 mg Furosemide (Lasix) 20 mg PO BID@1000,1800 [facility] Haloperidol Lactate (Haloperidol Lactate) 1 mg PO BID [facility] Last Admin: 12/05/18 09:28 Dose: 1 mg Heparin Sodium (Porcine) (Heparin Na) 5,000 unit SC Q8 [facility] Last Admin: 12/05/18 06:05 Dose: 5,000 unit Sodium Chloride () 250 mls @ 15 mls/hr IV .[id number] PRN PRN Reason: SALINE FLUSH Imipramine HCl (Tofranil) 50 mg PO QHS [facility] Last Admin: 12/04/18 22:01 Dose: 50 mg Levofloxacin (Levaquin Tablet) 500 mg PO DAILY@0600 [facility] Last Admin: 12/05/18 06:05 Dose: 500 mg Magnesium Oxide (Mag-Ox 400) 200 mg PO DAILY [facility] Last Admin: 12/05/18 09:28 Dose: 200 mg Mirtazapine (Remeron) 15 mg PO QHS [facility] Last Admin: 12/04/18 22:01 Dose: 15 mg Nutritional Formula (Lactose Free) (Ensure Enlive) 60 ml PO 4X/DAY [facility] Last Admin: 12/05/18 09:36 Dose: 60 ml Polyethylene Glycol (Miralax) 17 gm PO DAILY [facility] Last Admin: 12/04/18 08:26 Dose: 17 gm Prochlorperazine Maleate (Compazine Tablet) 5 mg PO DAILY PRN PRN PRN Reason: nausea and vomiting Propafenone HCl (Rythmol) 150 mg PO Q8 [facility] Last Admin: 12/05/18 06:05 Dose: 150 mg Sodium Chloride () 5 - 15 ml IV UD PRN PRN Reason: SALINE FLUSH Last Admin: 12/04/18 05:25 Dose: 10 ml Thyroid ([place] Thyroid) 30 mg PO DAILY [facility] Last Admin: 12/05/18 09:29 Dose: 30 mg Tramadol HCl (Ultram) 25 mg PO Q6H PRN PRN Reason: pain Last Admin: 12/04/18 08:17 Dose: 25 mg - Past Medical History Past Medical History (Chronic Problems): Chronic Problems (Last Updated 12/02/18 @ 01:59 by Nicolas Thakur DO) Paroxysmal atrial fibrillation (Chronic) Nonrheumatic mitral (valve) prolapse (Chronic) Hypothyroidism (Chronic) History of basal cell carcinoma (Chronic) Anxiety and depression (Chronic) History of cataract (Chronic) Heart murmur (Chronic) GERD (gastroesophageal reflux disease) (Chronic) IBS (irritable bowel syndrome) (Chronic) History of hepatitis (Chronic) Hormone replacement therapy (Chronic) - Past Surgical History Surgical History: cholecystectomy - Social History Smoking Status: Never smoker Alcohol: None Drugs: None - Family History Maternal Family History: Family History (Last Reviewed 10/09/18 @ 10:57 by Daljit Sen DO) Grandmother Colon cancer Grandfather Myocardial infarction Mother Heart disease Myocardial infarction Parkinsons History Items: No pertinent history Paternal Family History: Family History (Last Reviewed 10/09/18 @ 10:57 by Daljit Sen DO) Grandmother Colon cancer Grandfather Myocardial infarction Mother Heart disease Myocardial infarction Parkinsons History Items: No pertinent history Patient Problems: Active and Suspected Problems (Last Updated 12/02/18 @ 01:59 by Nicolas Thakur DO) Sepsis (Suspected) Hyponatremia (Acute) CAP (community acquired pneumonia) (Acute) Mild dehydration (Acute) Shortness of breath (Acute) - Physical Exam General: Alert, Oriented x3 HEENT: Atraumatic Oral: Moist Mucosa Neck: Supple, No JVD Lungs: Normal air movement, No rhonchi - Bilateral lung spaces crackles, - Cardiovascular: Regular rate, Regular Rhythm, Normal S1, Normal S2 Abdomen: Bowel Sounds Present, Soft, Non Tender Extremities: No clubbing, No cyanosis, No edema Skin: No rashes Musculoskeletal: No Tenderness to Palpation of Joints or Extremities Lymphatic: No Cervical, Supraclavicular, or Inguinal Adenopathy Neurological: Cranial nerves II-XII grossly intact, Neuro grossly intact Psych/Mental Status: Appropriate Vital Signs Temp Pulse Resp BP Pulse Ox 98.9 F 95 16 100/51 L 93 12/05/18 09:21 12/05/18 09:28 12/05/18 09:21 12/05/18 09:21 12/05/18 09:21 Oxygen Flow Rate (L/min) 2 Oxygen Delivery Method Room Air Weight: 47.9 kg Body Mass Index (BMI) 17.0 Intake and Output for Last 24 Hours 12/03/18 12/04/18 12/05/18 23:59 23:59 23:59 Intake Total 600 / 600 560 / 560 120 / 120 Output Total 150 / 150 Balance 600 / 600 560 / 560 -30 / -30 Microbiology Past 72 Hours 12/01/18 21:20 Urine Culture - Final Urine, Clean Catch Culture exhibits no growth. 12/01/18 17:52 Blood Culture - Preliminary Blood Culture (Wb) #2 - Left Forearm No growth in 48 hours. 12/01/18 17:52 Blood Culture - Preliminary Blood Culture (Wb) - Anticubital Left No growth in 48 hours. Laboratory Tests Past 24 Hrs 12/05/18 12/05/18 05:50 05:50 WBC 7.8 RBC 4.52 Hgb 13.9 Hct 39.8 MCV 88.1 MCH 30.8 MCHC 34.9 RDW 12.6 RDW Differential 39.8 Plt Count 219 MPV 11.0 Immature Gran % (Auto) 0.300 Neut % (Auto) 75.5 H Lymph % (Auto) 12.1 L [place] % (Auto) 11.7 H Eos % (Auto) 0.3 Baso % (Auto) 0.1 Absolute Neuts (auto) 5.9 Absolute Lymphs (auto) 0.95 Total Counted Not Reportable Sodium 123 L Potassium 3.1 L Chloride 79 L Carbon Dioxide 36.0 H Anion Gap 8 BUN 16 Creatinine 0.65 Estim Creat Clear Calc 36.57 Est GFR (MDRD) Af Amer 113 Est GFR (MDRD) Non-Af 94 BUN/Creatinine Ratio 24.5 H Glucose 94 Calcium 7.5 L Assessment/Plan All Active Problems (Last Updated 12/02/18 @ 01:59 by Nicolas Thakur DO) Hyponatremia (Acute) CAP (community acquired pneumonia) (Acute) Mild dehydration (Acute) Shortness of breath (Acute) Hypotension (Resolved) 1-hyponatremia with normovolemic status. Urine study is not accurate with Lasix so I will not order it. Patient has chronic hyponatremia . 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 He might be from CHF/high fluid intake at home Sodium level improved slowly with Lasix and fluid restriction. Patient is on 1200 cc fluid restriction. I agree with lasix 20 mg PO BID. Continue fluid restriction I will d/c Zoloft. Patient is to follow with her psychiatrist for alternative. No need for 3% sodium chloride. Please keep potassium within normal limit which would help to keep sodium from falling Check sodium level in the morning. Thank you for the consult. Renal team will continue to follow. Please call with any question at [phone] Plan of care was discussed with Dr.Kotsonis RIOS JOHNSON MD
[2018-12-05] MEDS: Polyethylene Glycol 3350 17 GM PACKET PO (11:17)
--- NOTE | 2018-12-05 11:21 | MRI_ITS ---
STUDY: MRI BRAIN WITHOUT CONTRAST REASON FOR EXAM: Female, 78 years old. Aphasia TECHNIQUE: Standardized multiplanar fat and water weighted pulse sequences were obtained. COMPARISON: None. FINDINGS: Normal size of the ventricles and extra-axial spaces for the patient's age. There are a limited number of small white matter hyperintensities, distributed throughout the deep white matter tracts of the cerebral hemispheres, consistent with mild chronic white matter ischemic changes. Normal bilateral basal ganglia. Normal thalami. There is no extra-axial fluid accumulation. Normal flow voids within the major intracranial circulation suggesting patency by spin echo criteria. Normal sella turcica, pituitary gland, infundibular stalk, optic chiasm and hypothalamus. Normal tectal plate and pineal gland. Normal midbrain, myriam and medulla. Normal cerebellum. Normal basal cisterns. Normal bilateral temporal bones. Normal bilateral internal auditory canals. Left lens replacement. Bilateral maxillary and right ethmoid sinusitis. Left mastoid sinus disease. Normal visualized soft tissue structures. Normal visualized upper cervical spine. MRI/Brain without Contrast IMPRESSION: No evidence of acute infarct or hemorrhage. Electronically Signed: Kike Jimenez MD at 18:15 EDT Tel , Service support ,
[2018-12-05] MEDS: Furosemide 20 MG Tablet PO (17:15)
[2018-12-05] MEDS: clonazePAM 0.5 MG Tablet 0.25 MG PO (22:21)
[2018-12-05] MEDS: Imipramine HCl 25 MG Tablet 50 MG PO (22:26)
[2018-12-05] MEDS: Bisacodyl 10 MG Suppository RECTAL (22:31)
[2018-12-06] VITALS (12 sets, daily range): BP systolic 91–99; BP diastolic 47–59; PULSE 78–95; RESP 16–20; TEMP 36.3–36.8; O2SAT 92–95
[2018-12-06 06:11] LABS: Anion Gap 5 (5-15); BUN 16 mg/dL (7-18); BUN/Creat Ratio 23.4 RATIO (10-20); Calcium,Total 8.1 mg/dL (8.5-10.1); Chloride 83 mmol/L (98-107); Creatinine, Serum 0.68 mg/dL (0.55-1.02); EST Glomerular Filtration Rate 89 mL/min (>60); Est Glom Filt Rate - Afr Amer 107 mL/min (>60); Estimated Creatinine Clearance 36.19 ml/min; Glucose 90 mg/dL (74-106); Magnesium 1.8 mg/dL (1.6-2.6); Potassium 3.8 mmol/L (3.5-5.1); Sodium Level 123 mmol/L (136-145)
[2018-12-06] MEDS: Heparin Injection (Vial) 5,000 UNIT/ML VIAL 5000 UNIT SC ×3 (06:18→21:24)
[2018-12-06] MEDS: levoFLOXacin 500 MG Tablet PO (06:19)
[2018-12-06] MEDS: Propafenone 150 MG Tablet PO ×3 (06:20→21:23)
--- NOTE | 2018-12-06 09:33 | PCM.PN.REN ---
Patient Problems: Active and Suspected Problems (Last Updated 12/02/18 @ 01:59 by Nicolas Thakur DO) Sepsis (Suspected) Hyponatremia (Acute) CAP (community acquired pneumonia) (Acute) Mild dehydration (Acute) Shortness of breath (Acute) Subjective: Patient states she has no nausea no vomiting she said her appetite is fair.. No headache no blurry vision. - Physical Exam General: Alert, Oriented x3 HEENT: Atraumatic Oral: Moist Mucosa Neck: Supple, No JVD Lungs: Clear to auscultation, Normal air movement, No rhonchi, No wheeze Cardiovascular: Regular rate, Regular Rhythm, Normal S1, Normal S2 Abdomen: Bowel Sounds Present, Soft, Non Tender, Non-Distended Extremities: No clubbing, No cyanosis, No edema Skin: No rashes Musculoskeletal: No Tenderness to Palpation of Joints or Extremities Lymphatic: No Cervical, Supraclavicular, or Inguinal Adenopathy Neurological: Cranial nerves II-XII grossly intact, Neuro grossly intact Psych/Mental Status: Normal Affect Vital Signs Temp Pulse Resp BP Pulse Ox 97.4 F L 78 20 H 91/48 L 92 12/06/18 04:20 12/06/18 04:20 12/06/18 04:20 12/06/18 04:20 12/06/18 08:00 Oxygen Flow Rate (L/min) 2 Oxygen Delivery Method Room Air Weight: 46.7 kg Body Mass Index (BMI) 17.0 Intake and Output for Last 24 Hours 12/04/18 12/05/18 12/06/18 23:59 23:59 23:59 Intake Total 560 / 560 600 / 600 365 / 365 Output Total 150 / 150 100 / 100 Balance 560 / 560 450 / 450 265 / 265 Microbiology Past 72 Hours 12/01/18 21:20 Urine Culture - Final Urine, Clean Catch Culture exhibits no growth. 12/01/18 17:52 Blood Culture - Preliminary Blood Culture (Wb) #2 - Left Forearm No growth in 48 hours. 12/01/18 17:52 Blood Culture - Preliminary Blood Culture (Wb) - Anticubital Left No growth in 48 hours. Laboratory Tests Past 24 Hrs 12/06/18 05:20 Sodium 123 L Potassium 3.8 Chloride 83 L Carbon Dioxide 35.0 H Anion Gap 5 BUN 16 Creatinine 0.68 Estim Creat Clear Calc 36.19 Est GFR (MDRD) Af Amer 107 Est GFR (MDRD) Non-Af 89 BUN/Creatinine Ratio 23.4 H Glucose 90 Calcium 8.1 L Magnesium 1.8 Medical Necessity - Tobacco Use Smoking Status: Never smoker Tobacco Use: Non-smoker Assessment/Plan All Active Problems (Last Updated 12/02/18 @ 01:59 by Nicolas Thakur, DO) Hyponatremia (Acute) CAP (community acquired pneumonia) (Acute) Mild dehydration (Acute) Shortness of breath (Acute) Hypotension (Resolved) 1-hyponatremia with normovolemic status. Urine study is not accurate with Lasix so wasn't order Patient said she chronic hyponatremia . 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 Acute worsening of hyponatremia is from CHF/high fluid intake at home ( Pt admitted drinking water a lot ) Sodium level improved slowly with Lasix and fluid restriction. Patient is on 1200 cc fluid restriction.Na level stable at 123. lasix 20 mg PO BID.I will restrict fluid more to 850 cc /day I am reluctant to add salt tab due to CHF and severe MR Continue holding mirtazipine and zoloft. Pt is to follow with her psychiatric for alternative. No need for 3% sodium chloride. Please keep potassium within normal limit which will help to keep sodium level from falling Check sodium level in the morning. Renal team will continue to follow. Please call with any question at [phone] Plan of care was discussed with Dr.Kotsonis RIOS JOHNSON MD
[2018-12-06] MEDS: Furosemide 20 MG Tablet PO ×2 (10:46→16:50)
[2018-12-06] MEDS: Magnesium Oxide 400 MG Tablet 200 MG PO (10:46)
[2018-12-06] MEDS: Digoxin 125 MCG Tablet PO (10:47)
[2018-12-06] MEDS: Bisacodyl 5 MG Tablet PO (10:47)
[2018-12-06] MEDS: Estradiol 0.5 MG Tablet PO (10:47)
[2018-12-06] MEDS: Carvedilol 6.25 MG Tablet PO ×2 (10:47→21:23)
[2018-12-06] MEDS: Polyethylene Glycol 3350 17 GM PACKET PO (10:47)
[2018-12-06] MEDS: Thyroid 15 MG Tablet 30 MG PO (10:47)
[2018-12-06] MEDS: Haloperidol Lactate 10 MG/5 ML UDC PO ×2 (10:48→21:23)
--- NOTE | 2018-12-06 11:44 | PCM.PN.HOSP ---
Patient Problems: Active and Suspected Problems (Last Updated 12/02/18 @ 01:59 by Nicolas Thakur DO) Sepsis (Suspected) Hyponatremia (Acute) CAP (community acquired pneumonia) (Acute) Mild dehydration (Acute) Shortness of breath (Acute) Subjective: Doing well, no issues overnight. MRI of her brain was negative for any acute stroke. Vitals/I&O's: Vital Signs Temp Pulse Resp BP Pulse Ox 98.3 F 86 18 97/47 L 94 12/06/18 10:41 12/06/18 10:47 12/06/18 10:41 12/06/18 10:41 12/06/18 10:41 Oxygen Flow Rate (L/min) 2 Oxygen Delivery Method Room Air Weight: 102 lb 15.294 oz Body Mass Index (BMI) 17.0 Intake and Output for Last 24 Hours 12/04/18 12/05/18 12/06/18 23:59 23:59 23:59 Intake Total 560 / 560 600 / 600 365 / 365 Output Total 150 / 150 100 / 100 Balance 560 / 560 450 / 450 265 / 265 General: Alert, Oriented x3, Cooperative, No apparent distress HEENT: Atraumatic, PERRLA, EOMI, Normocephalic Oral: Moist Mucosa Neck: Supple, No JVD, Trachea Midline Lungs: Clear to auscultation, Normal air movement, No rhonchi, No wheeze, No rales Cardiovascular: Regular rate, Regular Rhythm, Normal S1, Normal S2, No murmurs Abdomen: Soft, Non Tender, Non-Distended, No Hepato-splenomegaly Extremities: No edema, Capillary Refill Less than 3 Seconds Skin: No rashes, No breakdown Musculoskeletal: No Tenderness to Palpation of Joints or Extremities Neurological: Cranial nerves II-XII grossly intact, Neuro grossly intact, Motor Exam 5/5 strength throughout, Sensory exam intact to light touch and pain Psych/Mental Status: Normal Affect, Appropriate Microbiology Past 72 Hours 12/01/18 21:20 Urine, Clean Catch Urine Culture - Final Culture exhibits no growth. 12/01/18 17:52 Blood Culture (Wb) #2 - Left Forearm Blood Culture - Preliminary No growth in 48 hours. 12/01/18 17:52 Blood Culture (Wb) - Anticubital Left Blood Culture - Preliminary No growth in 48 hours. Laboratory Results 04/05/19 05:20: Sodium 123 L, Potassium 3.8, Chloride 83 L, Carbon Dioxide 35.0 H, Anion Gap 5, BUN 16, Creatinine 0.68, Estim Creat Clear Calc 36.19, Est GFR (MDRD) Af Amer 107, Est GFR (MDRD) Non-Af 89, BUN/Creatinine Ratio 23.4 H, Glucose 90, Calcium 8.1 L, Magnesium 1.8 Current Medications Bisacodyl (Dulcolax) 5 mg PO DAILY [facility] Last Admin: 12/06/18 10:47 Dose: 5 mg Carvedilol (Coreg) 6.25 mg PO BID [facility] Last Admin: 12/06/18 10:47 Dose: 6.25 mg Clonazepam (Klonopin) 0.25 mg PO QHS [facility] Last Admin: 12/05/18 22:21 Dose: 0.25 mg Digoxin (Lanoxin) 125 mcg PO DAILY [facility] Last Admin: 12/06/18 10:47 Dose: 125 mcg Estradiol (Estradiol) 0.5 mg PO DAILY [facility] Last Admin: 12/06/18 10:47 Dose: 0.5 mg Furosemide (Lasix) 20 mg PO BID@1000,1800 [facility] Last Admin: 12/06/18 10:46 Dose: 20 mg Haloperidol Lactate (Haloperidol Lactate) 1 mg PO BID [facility] Last Admin: 12/06/18 10:48 Dose: 1 mg Heparin Sodium (Porcine) (Heparin Na) 5,000 unit SC Q8 [facility] Last Admin: 12/06/18 06:18 Dose: 5,000 unit Sodium Chloride () 250 mls @ 15 mls/hr IV .[id number] PRN PRN Reason: SALINE FLUSH Imipramine HCl (Tofranil) 50 mg PO QHS [facility] Last Admin: 12/05/18 22:26 Dose: 50 mg Levofloxacin (Levaquin Tablet) 500 mg PO DAILY@0600 [facility] Last Admin: 12/06/18 06:19 Dose: 500 mg Magnesium Oxide (Mag-Ox 400) 200 mg PO DAILY [facility] Last Admin: 12/06/18 10:46 Dose: 200 mg Nutritional Formula (Lactose Free) (Ensure Enlive) 60 ml PO 4X/DAY [facility] Last Admin: 12/06/18 10:55 Dose: 60 ml Polyethylene Glycol (Miralax) 17 gm PO DAILY [facility] Last Admin: 12/06/18 10:47 Dose: 17 gm Prochlorperazine Maleate (Compazine Tablet) 5 mg PO DAILY PRN PRN PRN Reason: nausea and vomiting Propafenone HCl (Rythmol) 150 mg PO Q8 [facility] Last Admin: 12/06/18 06:20 Dose: 150 mg Sodium Chloride () 5 - 15 ml IV UD PRN PRN Reason: SALINE FLUSH Last Admin: 12/04/18 05:25 Dose: 10 ml Thyroid ([place] Thyroid) 30 mg PO DAILY [facility] Last Admin: 12/06/18 10:47 Dose: 30 mg Tramadol HCl (Ultram) 25 mg PO Q6H PRN PRN Reason: pain Last Admin: 12/04/18 08:17 Dose: 25 mg Medical Necessity - Tobacco Use Smoking Status: Never smoker Tobacco Use: Non-smoker Assessment/Plan All Active Problems (Last Updated 12/02/18 @ 01:59 by Nicolas Thakur DO) Hyponatremia (Acute) CAP (community acquired pneumonia) (Acute) Mild dehydration (Acute) Shortness of breath (Acute) Hypotension (Resolved) 1. Acute hypoxia secondary to acute diastolic congestive heart failure/hyponatremia/chronic A. fib with RVR/HTN -Echo demonstrates an EF of 40% as well as stage III diastolic dysfunction -Chest x-ray indicates a significant improvement in the bilateral pleural effusions. -Continue with Lasix 20 po 2 times daily and a fluid restriction -Her hyponatremia is likely secondary to hypervolemia, though stable at 123, appreciate nephrology assistance -Continue with her digoxin -Apparently her primary care physician took her off of Xarelto, because of frequent nosebleeds -MRI of the brain was negative -Speech evaluation with swallow study was negative yesterday -Potassium is 3.8 2. Possible community-acquired pneumonia-resolved -Received her las dose today 3. Hypothyroidism -She is on pork thyroid, TSH is 1.44 -Continue with her home thyroid medication 4. UA is consistent with a UTI her urine culture, however, is negative DVT: Lovenox Code Visit Inpatient E&M: 86184 Subs Hosp L2
--- NOTE | 2018-12-06 11:49 | PN_ITS ---
Patient Problems: Active and Suspected Problems (Last Updated 12/02/18 @ 01:59 by Nicolas Thakur DO) Sepsis (Suspected) Hyponatremia (Acute) CAP (community acquired pneumonia) (Acute) Mild dehydration (Acute) Shortness of breath (Acute) Subjective: Doing well, no issues overnight. MRI of her brain was negative for any acute st roke. Vitals/I&O's: Vital Signs Temp Pulse Resp BP Pulse Ox 98.3 F 86 18 97/47 L 94 12/06/18 10:41 12/06/18 10:47 12/06/18 10:41 12/06/18 10:41 12/06/18 10:41 Oxygen Flow Rate (L/min) 2 Oxygen Delivery Method Room Air Weight: 102 lb 15.294 oz Body Mass Index (BMI) 17.0 Intake and Output for Last 24 Hours 12/04/18 12/05/18 12/06/18 23:59 23:59 23:59 Intake Total 560 / 560 600 / 600 365 / 365 Output Total 150 / 150 100 / 100 Balance 560 / 560 450 / 450 265 / 265 General: Alert, Oriented x3, Cooperative, No apparent distress HEENT: Atraumatic, PERRLA, EOMI, Normocephalic Oral: Moist Mucosa Neck: Supple, No JVD, Trachea Midline Lungs: Clear to auscultation, Normal air movement, No rhonchi, No wheeze, No rales Cardiovascular: Regular rate, Regular Rhythm, Normal S1, Normal S2, No murmurs Abdomen: Soft, Non Tender, Non-Distended, No Hepato-splenomegaly Extremities: No edema, Capillary Refill Less than 3 Seconds Skin: No rashes, No breakdown Musculoskeletal: No Tenderness to Palpation of Joints or Extremities Neurological: Cranial nerves II-XII grossly intact, Neuro grossly intact, Motor Exam 5/5 strength throughout, Sensory exam intact to light touch and pain Psych/Mental Status: Normal Affect, Appropriate Microbiology Past 72 Hours 12/01/18 21:20 Urine, Clean Catch Urine Culture - Final Culture exhibits no growth. 12/01/18 17:52 Blood Culture (Wb) #2 - Left Forearm Blood Culture - Preliminary No growth in 48 hours. 12/01/18 17:52 Blood Culture (Wb) - Anticubital Left Blood Culture - Preliminary No growth in 48 hours. Laboratory Results 12/06/18 05:20: Sodium 123 L, Potassium 3.8, Chloride 83 L, Carbon Dioxide 35.0 H, Anion Gap 5, BUN 16, Creatinine 0.68, Estim Creat Clear Calc 36.19, Est GFR (MDRD) Af Amer 107, Est GFR (MDRD) Non-Af 89, BUN/Creatinine Ratio 23.4 H, Glucose 90, Calcium 8.1 L, Magnesium 1.8 Current Medications Bisacodyl (Dulcolax) 5 mg PO DAILY [facility] Last Admin: 12/06/18 10:47 Dose: 5 mg Carvedilol (Coreg) 6.25 mg PO BID [facility] Last Admin: 12/06/18 10:47 Dose: 6.25 mg Clonazepam (Klonopin) 0.25 mg PO QHS [facility] Last Admin: 12/05/18 22:21 Dose: 0.25 mg Digoxin (Lanoxin) 125 mcg PO DAILY [facility] Last Admin: 12/06/18 10:47 Dose: 125 mcg Estradiol (Estradiol) 0.5 mg PO DAILY [facility] Last Admin: 12/06/18 10:47 Dose: 0.5 mg Furosemide (Lasix) 20 mg PO BID@1000,1800 [facility] Last Admin: 12/06/18 10:46 Dose: 20 mg Haloperidol Lactate (Haloperidol Lactate) 1 mg PO BID [facility] Last Admin: 12/06/18 10:48 Dose: 1 mg Heparin Sodium (Porcine) (Heparin Na) 5,000 unit SC Q8 [facility] Last Admin: 12/06/18 06:18 Dose: 5,000 unit Sodium Chloride () 250 mls @ 15 mls/hr IV .[id number] PRN PRN Reason: SALINE FLUSH Imipramine HCl (Tofranil) 50 mg PO QHS [facility] Last Admin: 12/05/18 22:26 Dose: 50 mg Levofloxacin (Levaquin Tablet) 500 mg PO DAILY@0600 [facility] Last Admin: 12/06/18 06:19 Dose: 500 mg Magnesium Oxide (Mag-Ox 400) 200 mg PO DAILY [facility] Last Admin: 12/06/18 10:46 Dose: 200 mg Nutritional Formula (Lactose Free) (Ensure Enlive) 60 ml PO 4X/DAY [facility] Last Admin: 12/06/18 10:55 Dose: 60 ml Polyethylene Glycol (Miralax) 17 gm PO DAILY [facility] Last Admin: 12/06/18 10:47 Dose: 17 gm Prochlorperazine Maleate (Compazine Tablet) 5 mg PO DAILY PRN PRN PRN Reason: nausea and vomiting Propafenone HCl (Rythmol) 150 mg PO Q8 [facility] Last Admin: 12/06/18 06:20 Dose: 150 mg Sodium Chloride () 5 - 15 ml IV UD PRN PRN Reason: SALINE FLUSH Last Admin: 12/04/18 05:25 Dose: 10 ml Thyroid ([place] Thyroid) 30 mg PO DAILY [facility] Last Admin: 12/06/18 10:47 Dose: 30 mg Tramadol HCl (Ultram) 25 mg PO Q6H PRN PRN Reason: pain Last Admin: 12/04/18 08:17 Dose: 25 mg Medical Necessity - Tobacco Use Smoking Status: Never smoker Tobacco Use: Non-smoker Assessment/Plan All Active Problems (Last Updated 12/02/18 @ 01:59 by Nicolas Thakur DO) Hyponatremia (Acute) CAP (community acquired pneumonia) (Acute) Mild dehydration (Acute) Shortness of breath (Acute) Hypotension (Resolved) 1. Acute hypoxia secondary to acute diastolic congestive heart failure/hyponatremia/chronic A. fib with RVR/HTN -Echo demonstrates an EF of 40% as well as stage III diastolic dysfunction -Chest x-ray indicates a significant improvement in the bilateral pleural effusions. -Continue with Lasix 20 po 2 times daily and a fluid restriction -Her hyponatremia is likely secondary to hypervolemia, though stable at 123, appreciate nephrology assistance -Continue with her digoxin -Apparently her primary care physician took her off of Xarelto, because of frequent nosebleeds -MRI of the brain was negative -Speech evaluation with swallow study was negative yesterday -Potassium is 3.8 2. Possible community-acquired pneumonia-resolved -Received her las dose today 3. Hypothyroidism -She is on pork thyroid, TSH is 1.44 -Continue with her home thyroid medication 4. UA is consistent with a UTI her urine culture, however, is negative DVT: Lovenox Code Visit Inpatient E&M: 01344 Subs Hosp L2
--- NOTE | 2018-12-06 13:50 | CASEMGMT ---
This RN CM to room to discuss HHC and CCN for pt at this time. Pt/family updated on all at this time and decline both services at this time. Pt's daughter states that she is getting a med box for pt and will be setting up her meds for her from now on and that family will be making meals and having them ready for pt/. Daughter is provided with CCN pamphlet at this time and is aware they can call and request eval at any time. Daughter is also aware that if they decide on HHC they can call PCP for order at that time. S[place] SHEYLA DARLING
[2018-12-06] MEDS: clonazePAM 0.5 MG Tablet 0.25 MG PO (21:23)
[2018-12-06] MEDS: Imipramine HCl 25 MG Tablet 50 MG PO (21:23)
[2018-12-07] VITALS (7 sets, daily range): BP systolic 90–115; BP diastolic 57–60; PULSE 72–93; RESP 14–20; TEMP 36.5–36.6; O2SAT 95–98
[2018-12-07] MEDS: Propafenone 150 MG Tablet PO (06:35)
[2018-12-07] MEDS: Heparin Injection (Vial) 5,000 UNIT/ML VIAL 5000 UNIT SC (06:35)
[2018-12-07 06:58] LABS: Anion Gap 6 (5-15); BUN 18 mg/dL (7-18); BUN/Creat Ratio 21.7 RATIO (10-20); Calcium,Total 8.1 mg/dL (8.5-10.1); Chloride 84 mmol/L (98-107); Creatinine, Serum 0.83 mg/dL (0.55-1.02); EST Glomerular Filtration Rate 71 mL/min (>60); Est Glom Filt Rate - Afr Amer 86 mL/min (>60); Estimated Creatinine Clearance 43.88 ml/min; Glucose 81 mg/dL (74-106); Potassium 4.1 mmol/L (3.5-5.1); Sodium Level 125 mmol/L (136-145)
--- NOTE | 2018-12-07 07:56 | PCM.PN.REN ---
Patient Problems: Active and Suspected Problems (Last Updated 12/02/18 @ 01:59 by Nicolas Thakur DO) Sepsis (Suspected) Hyponatremia (Acute) CAP (community acquired pneumonia) (Acute) Mild dehydration (Acute) Shortness of breath (Acute) Subjective: Following for hyponatremia. Pt denies headache, nausea or ataxia. She is not confused. - Physical Exam General: Alert, Oriented x3 HEENT: Atraumatic, PERRLA Oral: Dry Mucosa Neck: Supple Lungs: Clear to auscultation Cardiovascular: Normal S1, Normal S2, No murmurs Abdomen: Soft, Non Tender, Non-Distended Extremities: No edema Vital Signs Temp Pulse Resp BP Pulse Ox 98 F 80 20 H 105/57 L 98 12/07/18 04:10 12/07/18 07:11 12/07/18 04:10 12/07/18 04:10 12/07/18 04:10 Oxygen Flow Rate (L/min) 2 Oxygen Delivery Method Room Air Weight: 48.2 kg Body Mass Index (BMI) 17.0 Intake and Output for Last 24 Hours 12/05/18 12/06/18 12/07/18 23:59 23:59 23:59 Intake Total 600 / 600 945 / 945 50 / 50 Output Total 150 / 150 300 / 300 100 / 100 Balance 450 / 450 645 / 645 -50 / -50 Microbiology Past 72 Hours 12/01/18 21:20 Urine Culture - Final Urine, Clean Catch Culture exhibits no growth. 12/01/18 17:52 Blood Culture - Preliminary Blood Culture (Wb) #2 - Left Forearm No growth in 48 hours. 12/01/18 17:52 Blood Culture - Preliminary Blood Culture (Wb) - Anticubital Left No growth in 48 hours. Laboratory Tests Past 24 Hrs 12/07/18 06:00 Sodium 125 L Potassium 4.1 Chloride 84 L Carbon Dioxide 35.0 H Anion Gap 6 BUN 18 Creatinine 0.83 Estim Creat Clear Calc 43.88 Est GFR (MDRD) Af Amer 86 Est GFR (MDRD) Non-Af 71 BUN/Creatinine Ratio 21.7 H Glucose 81 Calcium 8.1 L Medical Necessity - Tobacco Use Smoking Status: Never smoker Tobacco Use: Non-smoker Assessment/Plan All Active Problems (Last Updated 12/02/18 @ 01:59 by Nicolas Thakur DO) Hyponatremia (Acute) CAP (community acquired pneumonia) (Acute) Mild dehydration (Acute) Shortness of breath (Acute) Hypotension (Resolved) Hyponatremia. Asymptomatic and slowly improving. Patient said she chronic hyponatremia but no prior Na level for comparison. 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 TSH is normal. Acute worsening of hyponatremia may have been from CHF/high fluid intake at home although she looks euvolemic now. Will check am cortisol to be complete. Sodium level improved slowly with Lasix and fluid restriction. Unfortunately, we do not tolvaptan on formulary. Also encourage solute intake (protein) to help with water excretion. If Na is better tomorrow, I will relax fluid restriction to 1000 mL/day. Continue holding mirtazapine and Zoloft. No need for 3% sodium chloride. Will check urine studies to assess if current treatment needs to be adjusted. ([place] should be < Serum Na). Check sodium level in the morning.
[2018-12-07] MEDS: Digoxin 125 MCG Tablet PO (09:00)
[2018-12-07] MEDS: Bisacodyl 5 MG Tablet PO (09:01)
[2018-12-07] MEDS: Thyroid 15 MG Tablet 30 MG PO (09:01)
[2018-12-07] MEDS: Carvedilol 6.25 MG Tablet PO (09:01)
[2018-12-07] MEDS: Magnesium Oxide 400 MG Tablet 200 MG PO (09:02)
[2018-12-07] MEDS: traMADol 50 MG Tablet 25 MG PO (09:03)
[2018-12-07] MEDS: Furosemide 20 MG Tablet PO (09:04)
[2018-12-07] MEDS: Estradiol 0.5 MG Tablet PO (09:04)
[2018-12-07] MEDS: Polyethylene Glycol 3350 17 GM PACKET PO (09:05)
[2018-12-07] MEDS: Haloperidol Lactate 10 MG/5 ML UDC PO (09:05)
[2018-12-07 11:09] LABS: Urine Sodium 45 mmol/L (Not Establ.)
--- NOTE | 2018-12-07 11:13 | DCINST_ITS ---
- Discharge Diagnoses Current Active Problems: Current Active and Chronic Problems (Last Updated 12/02/18 @ 01:59 by Nicolas Thakur DO) Hyponatremia (Acute) CAP (community acquired pneumonia) (Acute) Mild dehydration (Acute) Shortness of breath (Acute) You will use the following diet at home:: Cardiac, Fluid restricted (specify 2000 mls, 1500 mls) - 850-1000 ml daily Your food should be the consistency of: Regular Your liquids should be the consistency of: Regular/Thin Discharge Activity: Return to Normal Activity Call your doctor if you observe: Fever of 101 or Higher, Shortness of breath, Dizziness, Fainting spells, Swelling in the ankles, Chest pain, Increased palpitations (irregular heartbeat) Pending Tests on Discharge: BMP next week to evaluate sodium and creatinine Allergies/Adverse Reactions: Allergies gluten Allergy (Intermediate, Verified 12/01/18 16:49) Unknown lactose Allergy (Intermediate, Verified 12/01/18 16:49) unknown Medications to take at Discharge coenzyme Q 10 10 mg capsule 10 mg PO ONCE 01/04/18 magnesium 200 mg tablet 200 mg PO QDAY 01/04/18 multivitamin capsule 1 cap PO QAM 01/04/18 omega-3 fatty acids 1,000 mg capsule 1,000 mg PO QDAY 01/04/18 vitamin B12 0.5 mg-folic acid 1 mg tablet 1 tab PO QDAY 01/04/18 digoxin 125 mcg tablet 125 mcg PO QDAY #90 tab 02/20/18 thyroid (pork) 30 mg tablet 30 mg PO QDAY #90 tab 03/21/18 tramadol 50 mg tablet 25 mg PO Q6H PRN #30 tab 03/21/18 haloperidol 1 mg tablet 1 mg PO BID #60 tab 05/09/18 polyethylene glycol 3350 17 gram oral powder packet 17 g PO DAILY 06/20/18 prednisolone 10 mg disintegrating tablet 10 mg PO QDAY #30 tab 06/20/18 prochlorperazine maleate 5 mg tablet 5 mg PO DAILY PRN #30 tab 07/12/18 clonazepam 0.5 mg tablet 0.25 mg PO QHS #90 tab 07/15/18 estradiol 0.5 mg tablet 0.5 mg PO DAILY #30 tab 10/09/18 imipramine 50 mg tablet 50 mg PO QHS #30 tab 10/09/18 propafenone 150 mg tablet 150 mg PO Q8H #90 tab 10/09/18 Acetaminophen [Acetaminophen ER] 325 mg PO Q6H PRN 12/01/18 Cholecalciferol (Vitamin D3) [Vitamin D3] 2,000 units PO DAILY 12/01/18 Furosemide [Lasix] 20 mg PO BID@1000,1800 #60 tablet 12/07/18 The following prescriptions were given: Furosemide [Lasix] 20 mg PO BID@1000,1800 #60 tablet Primary Care Physician: Daljit Sen DO [Primary Care Provider] - Please follow up with your Primary Care Physician in: 3-5 days Test Results: Test results from this visit will be discussed in further detail at your follow- up appointment, if applicable. Please Follow Up With: Yemi Anne MD When: 2 weeks
--- NOTE | 2018-12-07 11:22 | NURSING ---
Student nurse charting reviewed.
[2018-12-07 11:30] LABS: Osmolality, Urine 528 mOsm/KG
--- NOTE | 2018-12-07 11:43 | DS.PCM_ITS ---
Discharge Date and Diagnosis - Problem List Patient Problems: Active and Suspected Problems (Last Updated 12/02/18 @ 01:59 by Nicolas Thakur DO) Sepsis (Suspected) Hyponatremia (Acute) CAP (community acquired pneumonia) (Acute) Mild dehydration (Acute) Shortness of breath (Acute) Date of Admission: 12/01/18 Date of Discharge: 12/07/18 - Primary Discharge Diagnosis Active and Suspected Problems (Last Updated 12/02/18 @ 01:59 by Nicolas Thakur DO) Sepsis (Suspected) Hyponatremia (Acute) CAP (community acquired pneumonia) (Acute) Mild dehydration (Acute) Shortness of breath (Acute) - Secondary Discharge Diagnosis Chronic Problems (Last Updated 12/02/18 @ 01:59 by Nicolas Thakur DO) Paroxysmal atrial fibrillation (Chronic) Nonrheumatic mitral (valve) prolapse (Chronic) Hypothyroidism (Chronic) History of basal cell carcinoma (Chronic) Anxiety and depression (Chronic) History of cataract (Chronic) Heart murmur (Chronic) GERD (gastroesophageal reflux disease) (Chronic) IBS (irritable bowel syndrome) (Chronic) History of hepatitis (Chronic) Hormone replacement therapy (Chronic) Hospital Course and Treatment Imaging Results: CXR: IMPRESSION: Bilateral pleural effusions associated with bibasilar patchy opacities concerning for underlying atelectasis and/or pneumonia. CXR: IMPRESSION: Bilateral pleural effusions with adjacent atelectasis/infiltrates. No significant interval change compared to prior radiograph December 01, 2018. Recommend follow-up imaging to ensure resolution. MRI Brain: IMPRESSION: No evidence of acute infarct or hemorrhage. Consults: Nephrology Operations: None Procedures: 2-D Echocardiogram - Interpretation Summary Normal LV size. The estimated ejection fraction is 40 %. Stage 3 diastolic dysfunction. Mild (1+) tricuspid valve insufficiency. Pulmonary artery systolic pressure is 32 mmHg. Large left pleural effusion. Summary of Care Provided: Per HPI: The patient is a 78 year old F seen in the emergency room [facility] with chief complaint of shortness of breath and nausea. Patient is a poor informant, she is accompanied by her daughter. Patient lives with her , according to her daughter, patient self adjusts her medications and she cannot be sure that her mother is even taking some of her medications at all. Patient denies any purulent sputum production, is positive for cough, denies any chills, fever, hemoptysis, or diarrhea. Workup in the emergency room initially revealed the patient's pulse ox to be 96 on room air, patient was afebrile, lab was obtained-CBC was unremarkable, chemistry panel was remarkable for sodium of 118, chloride of 80, glucose of 144, and the patient's beta natruretic peptide was 218.4. AST was elevated at 72. Chest x-ray was obtained showing bilateral pleural effusions associated with bibasilar patchy opacities concerning for underlying atelectasis and/or pneumonia. It was my opinion on examination of the patient, that she probably had congestive heart failure although I could not rule out pneumonia. I discussed her care with the emergency room physician and we decided to place the patient on Levaquin, I will place her on Lasix when she is admitted and her chest x-ray will be repeated tomorrow. Patient's influenza swab was negative, I will obtain urine for Legionella antigen and strep pneumo antigen. Patient's last echocardiogram performed at [facility] showed the patient have a preserved ejection fraction at 55-65%. This study was done approximately 2 years ago and I will repeat her echocardiogram during this hospitalization. Hospital Course: 1. Acute hypoxia secondary to acute diastolic congestive heart failure/hyponatremia/chronic A. fib with RVR/[id number]-selo-old female with a history of possible bipolar disease who was on possibly Remeron, meclizine, imipramine, and Zoloft presented with shortness of breath and nausea. On admission she was found to have a sodium of 118. It was felt that this was likely secondary to hypervolemia given the appearance on the chest x-ray with fluid overload. However given the multiple psychiatric medications that she is on I felt that there is also a component of SIADH as well. She was very slow to improve and her sodium even with a fluid restriction to 1200 cc daily and the initiation of Lasix IV 20 mg twice daily. On the day of discharge she had increased to 125 and her sodium level. Nephrology had been consulted during her care and recommended also discontinuing her meclizine, her Remeron, and her Zoloft. She is continued on her imipramine and her Haldol and she will need to have close psychiatric follow-up for management of these medications and any psychiatric illness she has. Nephrology placed on a stricter fluid restriction and 850 cc which I feel improved her sodium. She will have follow-up with nephrology as an outpatient for possible tolvaptan and if her sodium does not continue to improve. Her care was difficult since she did not know what medication she was on. For example she did not know why she was not on Xarelto, and that she had been having frequent nosebleeds and that is why she was dis continued on it also she was in normal sinus rhythm as an outpatient on the propafenone, she was started on Coreg while here however her blood pressures have been running especially with the Lasix on board, therefore she was discharged on the Lasix but not on the Coreg. She will need close outpatient follow-up and this was expressed to her and her family. Also of note she did have a brain MRI because the family was concerned that she may have had a stroke due to her slurring when her sodium was 118. The MRI of her brain was negative and her slurring did improve with improvement in her sodium. 2. Community-acquired pneumonia-was some thought that she may have had appearance of infiltrates on her chest x-ray, she was started on Levaquin which she completed a 5-day course of. Her UA was also consistent with a UTI however urine culture was negative and if the urine culture was negative because of the antibiotic she received she will have at least completed a urinary tract infection treatment course as well. 3. Her other medical diagnoses were evaluated and her home medications were continued where appropriate Patient Problems: Active and Suspected Problems (Last Updated 12/02/18 @ 01:59 by Nicolas Thakur DO) Sepsis (Suspected) Hyponatremia (Acute) CAP (community acquired pneumonia) (Acute) Mild dehydration (Acute) Shortness of breath (Acute) Objective: General: Alert, Oriented x3, Cooperative, No apparent distress HEENT: Atraumatic, PERRLA, EOMI, Normocephalic Oral: Moist Mucosa Neck: Supple, No JVD, Trachea Midline Lungs: Clear to auscultation, Normal air movement, No rhonchi, No wheeze, No rales Cardiovascular: Regular rate, Regular Rhythm, Normal S1, Normal S2, Abdomen: Soft, Non Tender, Non-Distended, No Hepato-splenomegaly Extremities: No edema, Capillary Refill Less than 3 Seconds Skin: No rashes, No breakdown Musculoskeletal: No Tenderness to Palpation of Joints or Extremities Neurological: Cranial nerves II-XII grossly intact, Neuro grossly intact, Motor Exam 5/5 strength throughout, Sensory exam intact to light touch and pain Psych/Mental Status: Normal Affect, Appropriate - Physical Exam Vital Signs Temp Pulse Resp BP Pulse Ox 97.7 F L 93 14 115/60 96 12/07/18 10:10 12/07/18 10:10 12/07/18 10:10 12/07/18 10:10 12/07/18 10:10 Oxygen Flow Rate (L/min) 2 Oxygen Delivery Method Room Air Weight: 106 lb 4.205 oz Body Mass Index (BMI) 17.0 Intake and Output for Last 24 Hours 12/05/18 12/06/18 12/07/18 23:59 23:59 23:59 Intake Total 600 / 600 945 / 945 50 / 50 Output Total 150 / 150 300 / 300 100 / 100 Balance 450 / 450 645 / 645 -50 / -50 Microbiology Past 72 Hours 12/01/18 17:52 Blood Culture - Final Blood Culture (Wb) #2 - Left Forearm No growth in 5 days. 12/01/18 17:52 Blood Culture - Final Blood Culture (Wb) - Anticubital Left No growth in 5 days. 12/01/18 21:20 Urine Culture - Final Urine, Clean Catch Culture exhibits no growth. Laboratory Tests Past 24 Hrs 12/07/18 12/07/18 12/07/18 06:00 10:10 10:10 Sodium 125 L Potassium 4.1 Chloride 84 L Carbon Dioxide 35.0 H Anion Gap 6 BUN 18 Creatinine 0.83 Estim Creat Clear Calc 43.88 Est GFR (MDRD) Af Amer 86 Est GFR (MDRD) Non-Af 71 BUN/Creatinine Ratio 21.7 H Glucose 81 Calcium 8.1 L Urine Osmolality Pending Ur Random Sodium Urine Potassium 24.0 12/07/18 10:10 Sodium Potassium Chloride Carbon Dioxide Anion Gap BUN Creatinine Estim Creat Clear Calc Est GFR (MDRD) Af Amer Est GFR (MDRD) Non-Af BUN/Creatinine Ratio Glucose Calcium Urine Osmolality Ur Random Sodium 45 Urine Potassium Discharge Activity: Return to Normal Activity Call your doctor if you observe: Fever of 101 or Higher, Shortness of breath, D izziness, Fainting spells, Swelling in the ankles, Chest pain, Increased palpitations (irregular heartbeat) Home Medications: Medications to take at Discharge coenzyme Q 10 10 mg capsule 10 mg PO ONCE 01/04/18 magnesium 200 mg tablet 200 mg PO QDAY 01/04/18 multivitamin capsule 1 cap PO QAM 01/04/18 omega-3 fatty acids 1,000 mg capsule 1,000 mg PO QDAY 01/04/18 vitamin B12 0.5 mg-folic acid 1 mg tablet 1 tab PO QDAY 01/04/18 digoxin 125 mcg tablet 125 mcg PO QDAY #90 tab 02/20/18 thyroid (pork) 30 mg tablet 30 mg PO QDAY #90 tab 03/21/18 tramadol 50 mg tablet 25 mg PO Q6H PRN #30 tab 03/21/18 haloperidol 1 mg tablet 1 mg PO BID #60 tab 05/09/18 polyethylene glycol 3350 17 gram oral powder packet 17 g PO DAILY 06/20/18 prednisolone 10 mg disintegrating tablet 10 mg PO QDAY #30 tab 06/20/18 prochlorperazine maleate 5 mg tablet 5 mg PO DAILY PRN #30 tab 07/12/18 clonazepam 0.5 mg tablet 0.25 mg PO QHS #90 tab 07/15/18 estradiol 0.5 mg tablet 0.5 mg PO DAILY #30 tab 10/09/18 imipramine 50 mg tablet 50 mg PO QHS #30 tab 10/09/18 propafenone 150 mg tablet 150 mg PO Q8H #90 tab 10/09/18 Acetaminophen [Acetaminophen ER] 325 mg PO Q6H PRN 12/01/18 Cholecalciferol (Vitamin D3) [Vitamin D3] 2,000 units PO DAILY 12/01/18 Furosemide [Lasix] 20 mg PO BID@1000,1800 #60 tablet 12/07/18 Following Prescrptions Were Given to Patient: Furosemide [Lasix] 20 mg PO BID@1000,1800 #60 tablet Primary Care Physician: Daljit Sen, [Primary Care Provider] - Please follow up with your Primary Care Physician in: 3-5 days Please Follow Up With: Yemi Anne MD When: 2 weeks Disposition: Home Minutes spent on discharge:: 35 Patient Condition:: Stable Medical Necessity - Tobacco Use Smoking Status: Never smoker Tobacco Use: Non-smoker Meaningful Use Info Meaningful Use Diagnoses (Choose all that apply): None applicable Code Visit Inpatient E&M: 83701 Disch Hosp
== END 2018-12-07 12:21 | disposition home or self-care (01) | DRG 871 ==
LOC: ED 19:13 → PCU 21:05
PROVIDERS: Internal Medicine Nephrology; Admitting Provider Internal Medicine; Emergency Provider Emergency Medicine; Family Provider Family Medicine; PCP Family Medicine; Visit Provider Family Medicine
DX: A41.9 Sepsis, unspecified organism (principal); I50.31 Acute diastolic (congestive) heart failure; J18.9 Pneumonia, unspecified organism; E22.2 Syndrome of inappropriate secretion of antidiuretic hormone; I11.0 Hypertensive heart disease with heart failure; R09.02 Hypoxemia; E03.9 Hypothyroidism, unspecified; I48.2 Chronic atrial fibrillation; E86.0 Dehydration; K21.9 Gastro-esophageal reflux disease without esophagitis; K58.9 Irritable bowel syndrome, unspecified; I34.1 Nonrheumatic mitral (valve) prolapse; F32.9 Major depressive disorder, single episode, unspecified; F41.9 Anxiety disorder, unspecified; Z85.828 Personal history of other malignant neoplasm of skin; Z79.890 Hormone replacement therapy
CPT/HCPCS: 36415; 70551; 71045; 71046; 80048; 80053; 81001; 83605; 83690; 83735; 83880; 83935; 84133; 84300; 84443; 84484; 85025; 87040; 87086; 87449; 87804; 92526; 92610; 93005; 93306; 94640; 97110; 97162; 97166; 97530; 97802; 99251; 99285; J7030; J7040; A4216; G0463; J1940; J2405

== ENCOUNTER → 2018-12-12 09:22 | Outpatient (CLI) | payer MEDICARE, BC, SELFPAY ==
[2018-12-10 16:05] VITALS: BMI 17.0
[2018-12-12 11:12] LABS: Anion Gap 3 (5-15); BUN 14 mg/dL (7-18); BUN/Creat Ratio 18.5 RATIO (10-20); Calcium,Total 8.1 mg/dL (8.5-10.1); Chloride 93 mmol/L (98-107); Creatinine, Serum 0.76 mg/dL (0.55-1.02); EST Glomerular Filtration Rate 79 mL/min (>60); Est Glom Filt Rate - Afr Amer 96 mL/min (>60); Glucose 72 mg/dL (74-106); Potassium 4.4 mmol/L (3.5-5.1); Sodium Level 129 mmol/L (136-145)
== END ==
PROVIDERS: Family Provider Family Medicine; PCP Family Medicine; Referring Provider Family Medicine; Visit Provider Family Medicine
DX: E87.1 Hypo-osmolality and hyponatremia (principal)
CPT/HCPCS: 36415; 80048

== ENCOUNTER → 2018-12-26 10:05 | Outpatient (CLI) | payer MEDICARE, BC, SELFPAY ==
[2018-12-26 09:36] VITALS: BMI 17.0
[2018-12-26 12:31] LABS: Anion Gap 5 (5-15); BUN 15 mg/dL (7-18); BUN/Creat Ratio 18.5 RATIO (10-20); Calcium,Total 8.6 mg/dL (8.5-10.1); Chloride 95 mmol/L (98-107); Creatinine, Serum 0.81 mg/dL (0.55-1.02); EST Glomerular Filtration Rate 73 mL/min (>60); Est Glom Filt Rate - Afr Amer 88 mL/min (>60); Glucose 82 mg/dL (74-106); Potassium 4.4 mmol/L (3.5-5.1); Sodium Level 134 mmol/L (136-145)
== END ==
PROVIDERS: Family Provider Family Medicine; PCP Family Medicine; Visit Provider Family Medicine
DX: E87.1 Hypo-osmolality and hyponatremia (principal)
CPT/HCPCS: 36415; 80048

== ENCOUNTER → 2019-02-07 11:30 | Outpatient (CLI) | payer MEDICARE, BC, SELFPAY ==
[2019-02-07 11:28] VITALS: BMI 15.6
[2019-02-07 13:36] LABS: Digoxin Level 1.31 ng/mL (0.80-2.00)
== END ==
PROVIDERS: Family Provider Family Medicine; PCP Family Medicine; Visit Provider Family Medicine
DX: I48.91 Unspecified atrial fibrillation (principal)
CPT/HCPCS: 36415; 80162

== ENCOUNTER → 2019-02-18 14:48 | Outpatient (CLI) | payer MEDICARE, BC, SELFPAY ==
[2019-02-18 13:43] VITALS: BMI 15.6
--- NOTE | 2019-02-18 14:54 | RAD_ITS ---
STUDY: X-RAY CHEST REASON FOR EXAM: Female, 78 years old. Unspecified atrial fibrillation TECHNIQUE: PA and lateral chest COMPARISON: 12/04/2018 FINDINGS: Moderate layering right pleural effusion with dense right lung base atelectasis. Small layering left pleural effusion with mild left lung base atelectasis. Mid to upper lungs clear bilaterally, somewhat hyperlucent suggesting underlying COPD/emphysema. Cartilage smoking history. Normal cardiomediastinal silhouette, clari and pleural margins. No acute osseous or upper abdominal process. Mild scoliosis. Mild spondylosis and osteopenia. RAD/Chest PA and Lateral IMPRESSION: Right greater than left effusions with bibasilar atelectasis and underlying pulmonary features suggesting COPD/emphysema. Electronically Signed: Chris Greene MD at 15:19 EDT Tel , Service support ,
[2019-02-18 17:45] LABS: ALB/GLOB Ratio 0.9 RATIO (0.9-2.4); AST(SGOT) 40 U/L (15-37); Alanine Aminotransfer ALT/SGPT 42 U/L (13-56); Albumin, Serum 3.1 g/dL (3.2-5.0); Alkaline Phosphatase 71 U/L (45-117); Anion Gap 6 (5-15); BUN 16 mg/dL (7-18); BUN/Creat Ratio 19.5 RATIO (10-20); Calcium,Total 8.5 mg/dL (8.5-10.1); Chloride 84 mmol/L (98-107); Creatinine, Serum 0.82 mg/dL (0.55-1.02); EST Glomerular Filtration Rate 72 mL/min (>60); Est Glom Filt Rate - Afr Amer 87 mL/min (>60); Globulin 3.4 g/dL (2.2-4.2); Glucose 80 mg/dL (74-106); Potassium 4.3 mmol/L (3.5-5.1); Protein, Total 6.5 g/dL (6.4-8.2); Sodium Level 122 mmol/L (136-145)
[2019-02-18 17:57] LABS: BNP,B-Type NATRIURETIC PEPTIDE 247.9 pg/mL (0-100)
== END ==
PROVIDERS: Family Provider Family Medicine; PCP Family Medicine; Referring Provider Family Medicine; Visit Provider Family Medicine
DX: R06.02 Shortness of breath (principal); E87.1 Hypo-osmolality and hyponatremia; I48.91 Unspecified atrial fibrillation
CPT/HCPCS: 36415; 71046; 80053; 83880

== ENCOUNTER → 2019-02-20 | Outpatient (CLI) | payer MEDICARE, BC, SELFPAY ==
[2019-02-20 11:16] VITALS: BMI 15.6
[2019-02-20 13:12] LABS: Sodium Level 120 mmol/L (136-145)
[2019-02-20 15:33] LABS: Urine Sodium 17 mmol/L (Not Establ.)
== END | disposition home or self-care (01) ==
PROVIDERS: Family Provider Family Medicine; PCP Family Medicine; Visit Provider Family Medicine
DX: E87.1 Hypo-osmolality and hyponatremia (principal)
CPT/HCPCS: 36415; 84295; 84300

== ENCOUNTER 2019-02-24 12:12 | Inpatient (IN) | payer MEDICARE, BC, SELFPAY ==
[2019-02-20 11:16] VITALS: BMI 15.6
[2019-02-24] VITALS (11 sets, daily range): BP systolic 99–130; BP diastolic 49–91; PULSE 73–105; RESP 16–19; TEMP 36.4–36.9; O2SAT 94–99; BMI 17.6; BMI 16.5
--- NOTE | 2019-02-24 13:00 | RAD_ITS ---
STUDY: X-RAY CHEST REASON FOR EXAM: Female, 78 years old. TECHNIQUE: 2 views COMPARISON: February 18, 2019. FINDINGS: Still noted bilateral infiltrative changes at the bases with pleural effusion on both sides more so on the right. The upper lung smith and apices are otherwise clear. The trachea is in the midline. The visualized bony structures are intact. The cardiac silhouette is not enlarged. RAD/Chest PA and Lateral IMPRESSION: Bilateral basal infiltrates with pleural effusion more so on the right without significant change since the previous study. . Electronically Signed: Tino Dinero, at 15:00 EDT Tel , Service support ,
[2019-02-24 13:22] LABS: Absolute Lymphocyte Count 1.13 X10^3/ul (0.83-4.51); Absolute Neutrophil Count 4.1 X10^3/uL (2.0-7.7); Basophil# 0.04 X10^3/uL; Basophil% 0.7 % (0-1); Eosinophil# 0.08 X10^3/uL; Eosinophils% 1.3 % (0-5); Hematocrit 41.3 % (37-47); Hemoglobin 14.5 g/dl (12.0-15.0); Lymphocyte # 1.13 X10^3/ul (4.0); Lymphocyte % 18.7 % (19-41); Mean Corp Hgb Conc 35.1 g/gl (32-36); Mean Corpuscular Hgb 31.7 pg (27.0-32.0); Mean Corpuscular Volume 90.4 fL (81-99); Mean Platelet Vol. 10.9 fl (6.2-12.0); Monocyte# 0.72 X10^3/uL; Monocyte% 11.9 % (0-10); Neutrophil # 4.07 X10^3/uL (2.7-7.7); Neutrophil % 67.2 % (47-70); Platelet Count 202 K/mm3 (150-450); RBC Distribution Width CV 13.7 % (11.6-14.6); Red Blood Count 4.57 M/mm3 (4.2-5.4); White Blood Count 6.1 K/mm3 (4.4-11.0)
[2019-02-24 13:23] LABS: POSITIVE COUNT NO; POSITIVE DIFFERENTIAL NO; POSITIVE MORPHOLOGY NO
[2019-02-24 13:27] LABS: Anion Gap 4 (5-15); BUN 13 mg/dL (7-18); BUN/Creat Ratio 17.6 RATIO (10-20); Calcium,Total 8.6 mg/dL (8.5-10.1); Chloride 83 mmol/L (98-107); Creatinine, Serum 0.74 mg/dL (0.55-1.02); EST Glomerular Filtration Rate 81 mL/min (>60); Est Glom Filt Rate - Afr Amer 98 mL/min (>60); Estimated Creatinine Clearance 38.73 ml/min; Glucose 95 mg/dL (74-106); Potassium 3.8 mmol/L (3.5-5.1); Sodium Level 120 mmol/L (136-145)
[2019-02-24 13:54] LABS: BNP,B-Type NATRIURETIC PEPTIDE 311.2 pg/mL (0-100)
[2019-02-24] MEDS: Furosemide 40 MG/4 ML Vial IV ×2 (15:52→20:10)
[2019-02-24 16:04] LABS: Bacteria 0 SEEN /hpf (None Seen); Mucous, Urine 0 SEEN /hpf (<or=2+); Red Blood Cells-Urine 0 SEEN /hpf (0-5); White Blood Cells 0 SEEN /hpf (0-5)
[2019-02-24 16:21] LABS: Color, Urine Yellow (Yellow); Glucose, Dipstick Normal (Normal); Ketone-Dipstick Negative (Negative); Leukocyte Esterase-Dipstick 25 /ul (Negative); Nitrite-Dipstick Negative (Negative); Occult Blood-Urine Negative /ul (Negative); Protein-Dipstick Negative (Negative); Urine Bilirubin Dipstick Negative (Negative); Urine Clarity Clear (Clear); Urine Urobilinogen Normal (Normal)
--- NOTE | 2019-02-24 16:30 | ED.VISSUMM ---
- ER Visit Summary Date of Service: 02/24/19 Chief Complaint: Shortness of breath History of Present Illness: The patient is a 78 F presents to the emergency department shortness of breath. Patient was recently admitted 2 months ago. At that point, she was found to have hyponatremia and suspected SIADH. She was placed on fluid restriction and started on Lasix. Her sodium did increase. She is been at home. She states over the past few weeks, she had an 8 pound weight gain. She had increasing orthopnea, exertional dyspnea, leg edema. She denies any fevers or chills. She did see her primary care who resumed her Lasix. She feels it is not helping. Physical Examination: Vital signs reviewed General: Well-nourished, well-developed Head: Normocephalic, atraumatic Eyes: Pupils equal and reactive, extraocular muscles intact Neck, supple, no lymphadenopathy Heart: Regular rate and rhythm Respiratory: No distress, clear bilaterally Abdomen: Soft, nontender, nondistended, no peritoneal signs Back: Nontender Extremities: Nontender, no edema, no cords Skin: Normal color no rash Neuro: Alert and oriented, no focal or lateralizing deficits Test Results: [] Emergency Department Course and Treatment: Chest x-ray was completed on patient arrival. She does have evidence of pulmonary edema. Her sodium was decreased at 120. Her BNP is also elevated. My suspicion is that the patient may have underlying SIADH. She has evidence of volume overload, exertional dyspnea, and orthopnea. She was continued on IV Lasix. The patient will be admitted at this time.] Treatment Plan: [] Disposition: Admission Impression: 1. Dyspnea 2. CHF exacerbation 3. Hyponatremia This note was generated with [employer] dictation software. It may contain incorrect words, spelling, and punctuation that were not noted in review of the chart prior to signing ED Disposition - Plan for ED Patient: Disposition: [facility]
[2019-02-24 16:34] LABS: Digoxin Level 1.38 ng/mL (0.80-2.00)
--- NOTE | 2019-02-24 16:46 | HP.PCM_ITS ---
Problem List (1) (HFpEF) heart failure with preserved ejection fraction Status: Acute Qualifiers: Heart failure chronicity: acute Qualified Code(s): I50.31 - Acute diastolic (congestive) heart failure (2) Hyponatremia Status: Acute (3) Pleural effusion Status: Acute History of Present Illness Date of Admission: 02/24/19 Chief Complaint: shortness of breath. edema The patient is a 78 year old F presents with increasing shortness of breath and lower extremity edema. The symptoms have been ongoing for period of time, for years per the patient. However, over the past few weeks, symptoms have gotten worse. Patient states that she now has swelling in her feet and she has just increasing dyspnea on exertion. Patient has been started on Lasix her primary care provider but has still put on weight. Patient states that she has not been advised to follow a fluid restricted diet despite her history of hyponatremia. Patient's sodium was noted to be 120 when she arrived. [] Past Medical History Past Medical History (Chronic Problems): Chronic Problems (Last Reviewed 02/20/19 @ 12:44 by Daljit Sen DO) Atrial fibrillation (Chronic) Paroxysmal atrial fibrillation (Chronic) Nonrheumatic mitral (valve) prolapse (Chronic) Hypothyroidism (Chronic) History of basal cell carcinoma (Chronic) Anxiety and depression (Chronic) History of cataract (Chronic) Heart murmur (Chronic) GERD (gastroesophageal reflux disease) (Chronic) IBS (irritable bowel syndrome) (Chronic) History of hepatitis (Chronic) Hormone replacement therapy (Chronic) Medical History: Medical History (Last Reviewed 02/24/19 @ 16:48 by Lester Fitzgerald DO) Hypotension (Resolved) I95.9 Paroxysmal atrial fibrillation (Chronic) I48.0 Nonrheumatic mitral (valve) prolapse (Chronic) I34.1 Hypothyroidism (Chronic) E03.9 History of basal cell carcinoma (Chronic) Z85.828 Anxiety and depression (Chronic) F41.9, F32.9 History of cataract (Chronic) Z86.69 Heart murmur (Chronic) R01.1 GERD (gastroesophageal reflux disease) (Chronic) K21.9 IBS (irritable bowel syndrome) (Chronic) K58.9 History of hepatitis (Chronic) Z86.19 Hormone replacement therapy (Chronic) Z79.890 History of hysterectomy Z90.710 A-fib (Inactive) I48.91 Allergies gluten Allergy (Intermediate, Verified 02/24/19 12:13) Unknown lactose Allergy (Intermediate, Verified 02/24/19 12:13) unknown Home Medications: Ambulatory Orders Medication Instructions Recorded coenzyme Q 10 10 mg capsule 10 mg PO ONCE 01/04/18 magnesium 200 mg tablet 200 mg PO DAILY 01/04/18 polyethylene glycol 3350 17 gram 17 g PO DAILY 06/20/18 oral powder packet Acetaminophen [Acetaminophen ER] 325 mg PO Q6H PRN 12/01/18 Cholecalciferol (Vitamin D3) 2,000 units PO DAILY 12/01/18 [Vitamin D3] clonazepam 0.5 mg tablet 0.25 mg PO QHS #90 tab 12/11/18 imipramine 50 mg tablet 50 mg PO QHS #90 tab 12/26/18 furosemide 20 mg tablet 20 mg PO BID #60 tab 02/20/19 Albuterol Aerosols [Ventolin 2.5 mg INHALATION Q4HWA.RT 02/24/19 Aerosols] Apixaban [Eliquis] 5 mg PO BID 02/24/19 Cyanocobalamin/Folic Acid [Vitamin 1 tab PO DAILY 02/24/19 T78-Smbwp Acid Tablet] Digoxin 125 mcg PO DAILY 02/24/19 Metoprolol Tartrate [Lopressor 25 - 50 mg PO BID 02/24/19 (beta obie)] Multivitamin with Minerals 1 tab PO DAILY 02/24/19 [Multiple Vitamin] [place]-3 Fatty Acids/Fish Oil 1,000 mg PO DAILY 02/24/19 [[place] 3 1,000 mg Softgel] Thyroid,Pork [[place] Thyroid] 30 mg PO DAILY 02/24/19 proCHLORPERazine tablet [Compazine 5 mg PO TID PRN PRN 02/24/19 tablet] Surgical History: Surgical History (Last Reviewed 02/24/19 @ 16:48 by Lester Fitzgerald DO) History of cholecystectomy Z90.49 Surgical History: cholecystectomy Psychiatric History: No pertinent psych hx 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 Smoking Status: Never smoker - *Family History Maternal Family History: Family History (Last Reviewed 02/24/19 @ 16:48 by Lester Fitzgerald DO) Grandmother Colon cancer Grandfather Myocardial infarction Mother Heart disease Myocardial infarction Parkinsons History Items: No pertinent history Paternal Family History: Family History (Last Reviewed 02/24/19 @ 16:48 by Lester Fitzgerald DO) Grandmother Colon cancer Grandfather Myocardial infarction Mother Heart disease Myocardial infarction Parkinsons History Items: No pertinent history Review of Systems Constitutional: Denies: Chills, Fever, Weight Change Eyes: Denies: Blurred vision, Double vision HEENT: Denies: Head Aches, Sinus Congestion, Sinus Drainage Cardiovascular: Reports: Edema. Denies: Chest Pain, Palpitations Respiratory: Denies: Cough, Shortness of breath at rest, Sputum production Gastrointestinal: Denies: Abdominal Pain, Nausea, Vomiting Genitourinary: Denies: Dysuria Musculoskeletal: Denies: Joint Pain, Joint Tenderness Skin: Denies: Rash, Wounds Neurological: Denies: Numbness, Tingling, Focal weakness Psychiatric: Denies: Anxiety, Depression Endocrine: Denies: Heat/ Cold Intolerance Hematologic/ Lymphatic: Denies: Easy Bruising, Easy Bleeding, Hx of blood clot Comment: A 10 point review of systems were negative except as mentioned in the history of present illness and the other review of systems. VTE Information - Inpt Only VTE Present on Admission: No VTE Mechan Device Prophylaxis: None Reason prophylaxis not ordered:: Procedure Not Indicated Patient Problems: Active and Suspected Problems (Last Reviewed 02/20/19 @ 12:44 by Daljit Sen DO) (HFpEF) heart failure with preserved ejection fraction (Acute) Hyponatremia (Acute) Pleural effusion (Acute) - Physical Exam General: Alert, No apparent distress, - - Gaunt. Afebrile. HEENT: Atraumatic, Normocephalic, - - No icterus Oral: Moist Mucosa, No Gingival or Mucosal Lesions/ Ulcerations Neck: No Nodes, Thyroid Normal Size and Texture Lungs: Clear to auscultation, Normal air movement, No rhonchi, No wheeze, - - Dullness to percussion in the bases Cardiovascular: Irregular Rate, Tachycardic Abdomen: Bowel Sounds Present, Soft, Non Tender, Non-Distended, No Hepato- splenomegaly Extremities: No Calf Tenderness, Edema Skin: No rashes, No breakdown Musculoskeletal: No Tenderness to Palpation of Joints or Extremities, No Muscle Wasting Neurological: Deep Tendon Reflexes 2+/4 and Symmetrical, - - No clonus Psych/Mental Status: Appropriate, Flat Affect Vital Signs Temp Pulse Resp BP Pulse Ox 36.4 C L 99 17 108/91 H 94 06/24/19 12:13 02/24/19 16:21 02/24/19 16:21 02/24/19 16:21 02/24/19 16:21 Oxygen Delivery Method Room Air Weight: 51.256 kg Body Mass Index (BMI) 17.6 Laboratory Tests Past 24 Hrs 02/24/19 02/24/19 02/24/19 12:55 12:55 12:55 WBC 6.1 RBC 4.57 Hgb 14.5 Hct 41.3 MCV 90.4 MCH 31.7 MCHC 35.1 RDW 13.7 RDW Differential 45.0 H Plt Count 202 MPV 10.9 Immature Gran % (Auto) 0.200 Neut % (Auto) 67.2 Lymph % (Auto) 18.7 L [place] % (Auto) 11.9 H Eos % (Auto) 1.3 Baso % (Auto) 0.7 Absolute Neuts (auto) 4.1 Absolute Lymphs (auto) 1.13 Total Counted Not Reportable Sodium 120 L Potassium 3.8 Chloride 83 L Carbon Dioxide 33.0 H Anion Gap 4 L BUN 13 Creatinine 0.74 Estim Creat Clear Calc 38.73 Est GFR (MDRD) Af Amer 98 Est GFR (MDRD) Non-Af 81 BUN/Creatinine Ratio 17.6 Glucose 95 Calcium 8.6 Troponin I < 0.015 B-Natriuretic Peptide 311.2 H Urine Color Urine Clarity Urine pH Ur Specific [place] Urine Protein Urine Glucose (UA) Urine Ketones Urine Occult Blood Urine Nitrite Urine Bilirubin Urine Urobilinogen Ur Leukocyte Esterase Urine RBC Urine WBC Ur Squamous Epith Cells Urine Bacteria Urine Mucus Digoxin 02/24/19 02/24/19 15:30 15:30 WBC RBC Hgb Hct MCV MCH MCHC RDW RDW Differential Plt Count MPV Immature Gran % (Auto) Neut % (Auto) Lymph % (Auto) [place] % (Auto) Eos % (Auto) Baso % (Auto) Absolute Neuts (auto) Absolute Lymphs (auto) Total Counted Sodium Potassium Chloride Carbon Dioxide Anion Gap BUN Creatinine Estim Creat Clear Calc Est GFR (MDRD) Af Amer Est GFR (MDRD) Non-Af BUN/Creatinine Ratio Glucose Calcium Troponin I B-Natriuretic Peptide Urine Color Pending Urine Clarity Pending Urine pH Pending Ur Specific [place] Pending Urine Protein Pending Urine Glucose (UA) Pending Urine Ketones Pending Urine Occult Blood Pending Urine Nitrite Pending Urine Bilirubin Pending Urine Urobilinogen Pending Ur Leukocyte Esterase Pending Urine RBC Pending Urine WBC Pending Ur Squamous Epith Cells Pending Urine Bacteria Pending Urine Mucus Pending Digoxin 1.38 Chest x-ray reviewed and shows some pulmonary vascular congestion and bilateral pleural effusions. Essentially unchanged from earlier this month and also December. EKG reviewed and showed atrial fibrillation. No other acute changes noted. Assessment/Plan All Active Problems (Last Reviewed 02/20/19 @ 12:44 by Daljit Sen DO) (HFpEF) heart failure with preserved ejection fraction (Acute) Hyponatremia (Acute) Pleural effusion (Acute) Hyponatremia (Acute) CAP (community acquired pneumonia) (Acute) Mild dehydration (Acute) Shortness of breath (Acute) Hypotension (Resolved) 1. Acute heart failure with preserved ejection fraction * Ejection fraction of 50 to 55% from echocardiogram on 04/26/2017 * We will hold the patient's Lasix of 20 mg p.o. twice daily and change her over to 40 mg IV twice daily. Patient already on metoprolol and will continue with that though it is unclear if patient is actually taking it as she has been prescribed. * Initiate DALJIT inhibitor * Recheck an echocardiogram * Cycle cardiac enzymes 2. Hyponatremia * Chronic * Unclear etiology * Previous TSH has been negative we will recheck plus check a random cortisol * May be iatrogenic. Unclear as to what may be causing it though. * We will hold her imipramine for now. 3. Atrial fibrillation * Fair control but was ranging in the 80s to 100s during my encounter * We will continue with the metoprolol * If has been tachycardic that could explain also her heart failure triggered she has a high output heart failure due to uncontrolled atrial fibrillation * Check a digoxin level * Anticoagulated on apixaban 4. Hypothyroidism * Patient takes a pork thyroid, will continue though not an ideal choice for thyroid replacement * Check TSH 5. VTE prophylaxis: Low risk as patient is already anticoagulated on apixaban 6. Advanced care planning: Discussed with the patient and the patient wishes to have CPR, intubation and PEG tube if necessary. Therefore, the patient is full CODE STATUS. Case discussed with the patient's daughter at bedside. Code Visit Inpatient E&M: 46217 Init Hosp L3
[2019-02-24 16:57] LABS: Squamous Epithelial Cells - UA 0-5 SEEN /hpf (5-10)
--- NOTE | 2019-02-24 16:58 | ECHOD_ITS ---
Reason For Study: CHF Procedure This was a 2D Doppler, Color Flow transthoracic echocardiogram. The study was technically difficult. PT was very uncomfortable. Exam performed portable in patient room. Left Ventricle Normal LV size. Mild global left ventricular systolic dysfunction. The estimated ejection fraction is 45 %. There is evidence of diastolic dysfunction. Right Ventricle Normal RV size. Normal systolic function. Atria The left atrium is moderately enlarged. Normal right atrium. No doppler evidence for ASD. Mitral Valve There is mild mitral annular calcification. Anterior leaflet diffuse mitral valve thickening. Equivocal mitral valve prolapse. Moderately severe (3+) eccentric mitral valve insufficiency. Tricuspid Valve Normal tricuspid valve. Mild tricuspid valve insufficiency. Right ventricular systolic pressure estimated to be 42 mmHg. Aortic Valve Trisinus/trileaflet aortic valve. Mild focal aortic valve calcification. Pulmonic Valve The pulmonic valve is not well visualized. Mild (1+) pulmonic valve insufficiency. Great Vessels Normal sized aortic root. Pericardium/Pleural No pericardial effusion. Echo lucency compatible with a pleural effusion. MMode/2D Measurements & Calculations LVIDd: 4.5 cm IVSd: 0.79 cm Ao root diam: 3.0 cm LVIDs: 2.9 cm LVPWd: 0.69 cm RVDd: 2.2 cm FS: 36.6 % LAV(MOD-bp): 100.3 ml LA A4 area: 24.1 cm2 LA dimension(2D): 4.4 cm LAV(MOD-bp) Indexed: 64.9 ml/m2 LAV(MOD-sp2): 114.9 ml LAV(MOD-sp4): 76.0 ml RA A4 area: 11.9 cm2 Time Measurements MV dec time: 0.21 sec Doppler Measurements & Calculations MV E max [place]: 146.2 cm/sec Lat Peak E' [place]: 6.8 cm/sec Med Peak E' [place]: 8.7 cm/sec E/E' lat: 21.6 E/E' med: 16.7 Ao V2 max: 121.2 cm/sec LV V1 max: 77.2 cm/sec PA V2 max: 61.5 cm/sec Ao max P.9 mmHg LV V1 max P.4 mmHg TR max [place]: 257.2 cm/sec TR max P.5 mmHg Interpretation Summary The study was technically difficult. Mild global left ventricular systolic dysfunction. The estimated ejection fraction is 45 %. The left atrium is moderately enlarged. There is mild mitral annular calcification. Anterior leaflet diffuse mitral valve thickening. Equivocal mitral valve prolapse. Moderately severe (3+) eccentric mitral valve insufficiency. Mild tricuspid valve insufficiency. Mild focal aortic valve calcification. Mild (1+) pulmonic valve insufficiency. Echo lucency compatible with a pleural effusion. Right ventricular systolic pressure estimated to be 42 mmHg. There is evidence of diastolic dysfunction. Ordering Physician: Lester Fitzgerald Referring Physician: Daljit Sen Performed By: Angie Hobbs, RAMESH, RVT
[2019-02-24] MEDS: Albuterol 2.5 MG/3 ML VIAL.NEB. INHALATION (19:15)
[2019-02-24] MEDS: 0.9% NaCl Peripheral Flush Adult/Peds IV (20:10)
[2019-02-24 20:46] LABS: Urine Sodium 75 mmol/L (Not Establ.)
[2019-02-24 21:08] LABS: Osmolality, Urine 202 mOsm/KG
[2019-02-24] MEDS: Acetaminophen 325 MG Tablet 650 MG PO (21:14)
[2019-02-24] MEDS: clonazePAM 0.5 MG Tablet 0.25 MG PO (21:15)
[2019-02-24] MEDS: APIXABAN 5 MG TABLET PO (21:16)
[2019-02-24] MEDS: Metoprolol Tartrate 50 MG Tablet PO (21:16)
[2019-02-25] VITALS (14 sets, daily range): BP systolic 103–125; BP diastolic 55–73; PULSE 69–94; RESP 16–18; TEMP 36.4–36.7; O2SAT 97–98
[2019-02-25] MEDS: Thyroid 15 MG Tablet 30 MG PO (05:11)
[2019-02-25] MEDS: Albuterol 2.5 MG/3 ML VIAL.NEB. INHALATION ×4 (07:23→20:15)
[2019-02-25 07:42] LABS: Osmolality, Serum 259 mOsm/KG (280-301)
[2019-02-25 07:51] LABS: Anion Gap 7 (5-15); BUN 14 mg/dL (7-18); BUN/Creat Ratio 19.7 RATIO (10-20); Calcium,Total 8.5 mg/dL (8.5-10.1); Chloride 87 mmol/L (98-107); Creatinine, Serum 0.71 mg/dL (0.55-1.02); EST Glomerular Filtration Rate 85 mL/min (>60); Est Glom Filt Rate - Afr Amer 103 mL/min (>60); Estimated Creatinine Clearance 32.72 ml/min; Glucose 85 mg/dL (74-106); Potassium 3.4 mmol/L (3.5-5.1); Sodium Level 127 mmol/L (136-145); Thyroid Stim Hormone (TSH) 2.79 uIU/mL (0.358-3.74)
[2019-02-25] MEDS: Multivitamins,Therapeutic Tablet 1 TABLET PO (08:23)
[2019-02-25] MEDS: Digoxin 125 MCG Tablet PO (08:24)
[2019-02-25] MEDS: APIXABAN 5 MG TABLET PO (08:24)
[2019-02-25] MEDS: Furosemide 40 MG/4 ML Vial IV ×2 (08:24→17:59)
[2019-02-25] MEDS: Metoprolol Tartrate 50 MG Tablet PO ×2 (08:24→21:31)
[2019-02-25] MEDS: Omega-3 Acid Ethyl Esters 1 GM Capsule PO (08:25)
[2019-02-25] MEDS: Polyethylene Glycol 3350 17 GM PACKET PO ×2 (08:25→21:30)
--- NOTE | 2019-02-25 10:22 | CASEMGMT ---
SHEYLA DARLING assessment: Face to Face with patient for initial transition planning/care coordination assessment. SHEYLA DARLING introduced self and role at [facility], pt voices understanding and consents to assessment at this time. Pt is sitting up in bed in no distress at this time. Pt is A/Ox4 at this time and answers all questions appropriately at this time. Pt's and daughter, Ofelia Wills, at bedside during assessment. Care providers, pharmacy, and demographics verified/updated at this time. PCP: [facility] Specialists: Brenda Silva, cardio at [facility] Pharmacy: [facility] Insurance: MCR A/B, [employer] Prescription Benefit: [employer] Living Will/HPOA: Pt is unsure if she has LW/HPOA and states daughter in law is a nurse and they believe she was working on this. Advised pt/family, that she does not have AD on file at [facility] at this time, voice understanding. LNOK: Bautista Gorman, ; Ofelia Wills, daughter Living Arrangements: Pt lives with in mobile home with 4 railed steps into home and states no concerns at home at this time. Pt states is independent with ADL's. Transportation: Pt states drives and states no transportation concerns at this time. DME/HHC: Pt states no current DME or need for any at this time. Pt states no hx of HHC or SNF in the past. Pt states no concerns with going home at time of discharge. Pt states is retired. Pt states does not smoke or drink ETOH but does chew tobacco occasionally. Pt states no further questions/concerns/needs at this time. CM to follow for any further discharge planning/needs. Advised pt/family to ask for CM if any further questions/concerns/needs arise, voice understanding. Pt Goal: Home Plan[place] SHEYLA DARLING
[2019-02-25] MEDS: Acetaminophen 325 MG Tablet 650 MG PO ×2 (11:02→18:03)
--- NOTE | 2019-02-25 15:53 | CON.PCM_ITS ---
Problem List (1) CHF (congestive heart failure) Status: Chronic Qualifiers: Heart failure type: systolic Heart failure chronicity: chronic Qualified Code(s): I50.22 - Chronic systolic (congestive) heart failure (2) Atrial fibrillation Status: Chronic Qualifiers: Atrial fibrillation type: persistent Qualified Code(s): I48.1 - Persistent atrial fibrillation (3) Nonrheumatic mitral (valve) prolapse Status: Chronic (4) Mitral valve insufficiency Status: Chronic Qualifiers: Cardiac valve disease etiology: nonrheumatic Qualified Code(s): I34.0 - Nonrheumatic mitral (valve) insufficiency (5) Pleural effusion Status: Chronic Reason for Consult Date of Consultation: 02/25/19 History of Present Illness: The patient is a 78 year old white female who has a past cardiovascular history which has included atrial fibrillation, mitral valve prolapse/mitral valve regurgitation, non-CAD related cardiomyopathy, congestive heart failure, pleural effusions, who is referred for evaluation of the aforementioned concerns. She has previously been followed by Dr. Nathan cardiology. She states she has not had outpatient cardiovascular follow-up since her last visit with him prior to his . She has been in and out of the hospital based upon her underlying cardiovascular conditions. She was recently hospitalized at the [facility] in November of this year for her aforementioned concerns. She was treated medically and eventually released home. She has returned now with a variety of symptoms including shortness of breath/dyspnea superimposed upon her aforementioned cardiovascular conditions as well as findings of recurrent hyponatremia. She denies ongoing classic angina pectoris type symptoms. She has had chronic shortness of breath and dyspnea as well as chronic orthopnea. She has also had development of lower extremity peripheral pitting edema recently. She denies any near-syncope or syncope. She states at times she feels her atrial fibrillation and at other times she does not. She was brought back to the hospital based upon her progressive shortness of breath and dyspnea and reported findings of recurrent hyponatremia. Since her hospitalization she has undergone reevaluation from a cardiac standpoint. Her troponin I levels have been negative. An ECG demonstrated a trial fibrillation with a rightward axis with nonspecific ST segment abnormality. She has also had a follow-up transthoracic echocardiogram. She was found to have global left ventricular systolic dysfunction with an estimated LVEF 45% with left atrial enlargement and equivocal mitral valve prolapse with moderately severe MR as well as mild TR and an estimated RV systolic pressure 42 mmHg (please see official report). She was also noted to have echolucency compatible with a pleural effusion. A chest x-ray demonstrated bilateral pleural effusions with the right greater than the left. Her medications were altered. She was placed on IV diuretic therapy. [] Past Medical History Allergies/Adverse Reactions: Allergies gluten Allergy (Intermediate, Verified 02/24/19 12:13) Unknown lactose Allergy (Intermediate, Verified 02/24/19 12:13) unknown Home Medications: Ambulatory Orders Medication Instructions Recorded coenzyme Q 10 10 mg capsule 10 mg PO ONCE 01/04/18 magnesium 200 mg tablet 200 mg PO DAILY 01/04/18 polyethylene glycol 3350 17 gram 17 g PO DAILY 06/20/18 oral powder packet Acetaminophen [Acetaminophen ER] 325 mg PO Q6H PRN 12/01/18 Cholecalciferol (Vitamin D3) 2,000 units PO DAILY 12/01/18 [Vitamin D3] clonazepam 0.5 mg tablet 0.25 mg PO QHS #90 tab 12/11/18 imipramine 50 mg tablet 50 mg PO QHS #90 tab 12/26/18 furosemide 20 mg tablet 20 mg PO BID #60 tab 02/20/19 Albuterol Aerosols [Ventolin 2.5 mg INHALATION Q4HWA.RT 02/24/19 Aerosols] Apixaban [Eliquis] 5 mg PO BID 02/24/19 Cyanocobalamin/Folic Acid [Vitamin 1 tab PO DAILY 02/24/19 J20-Wsrpt Acid Tablet] Digoxin 125 mcg PO DAILY 02/24/19 Metoprolol Tartrate [Lopressor 25 - 50 mg PO BID 02/24/19 (beta obie)] Multivitamin with Minerals 1 tab PO DAILY 02/24/19 [Multiple Vitamin] [place]-3 Fatty Acids/Fish Oil 1,000 mg PO DAILY 02/24/19 [[place] 3 1,000 mg Softgel] Thyroid,Pork [Taft Thyroid] 30 mg PO DAILY 02/24/19 proCHLORPERazine tablet [Compazine 5 mg PO TID PRN PRN 02/24/19 tablet] Past Medical History (Chronic Problems): Chronic Problems (Last Reviewed 02/24/19 @ 16:48 by eLster Fitzgerald DO) Pleural effusion (Chronic) CHF (congestive heart failure) (Chronic) Mitral valve insufficiency (Chronic) Atrial fibrillation (Chronic) Paroxysmal atrial fibrillation (Chronic) Nonrheumatic mitral (valve) prolapse (Chronic) Hypothyroidism (Chronic) History of basal cell carcinoma (Chronic) Anxiety and depression (Chronic) History of cataract (Chronic) Heart murmur (Chronic) GERD (gastroesophageal reflux disease) (Chronic) IBS (irritable bowel syndrome) (Chronic) History of hepatitis (Chronic) Hormone replacement therapy (Chronic) Surgical History: cholecystectomy Psychiatric History: No pertinent psych hx INFORMATICIST History: No pertinent INFORMATICIST history - *Family History Maternal Family History: Family History (Last Reviewed 02/24/19 @ 16:48 by Lester Fitzgerald DO) Grandmother Colon cancer Grandfather Myocardial infarction Mother Heart disease Myocardial infarction Parkinsons History Items: No pertinent history Paternal Family History: Family History (Last Reviewed 02/24/19 @ 16:48 by Lester Fitzgerald DO) Grandmother Colon cancer Grandfather Myocardial infarction Mother Heart disease Myocardial infarction Parkinsons History Items: No pertinent history Smoking Status: Never smoker Tobacco Use: Chew Alcohol: None Drugs: None Review of Systems - Review of Systems General: Denies: Fever, Night Sweats, Fatigue Cardiovascular: Reports: Shortness of Breath, Orthopnea, PND, Peripheral Edema. Denies: Chest Discomfort, Palpitations, Lightheadedness, Dizziness, Near Syncope, Syncope Respiratory: Reports: Shortness of Breath. Denies: Cough, Sputum Production, Hemoptysis Gastrointestinal: Denies: Hematemesis, Hematochezia, Melena Genitourinary: Denies: Dysuria, Hematuria Skin: Denies: Rash Subjectve: This is a 78-year-old thin frail appearing white female who appears to be resting comfortably at the moment in no acute distress. Objective: Vital Signs Temp Pulse Resp BP Pulse Ox 98.1 F 86 16 118/57 L 97 02/25/19 14:15 02/25/19 15:02 02/25/19 15:02 02/25/19 14:15 02/25/19 14:15 Oxygen Delivery Method Room Air Weight: 95 lb 7.362 oz Body Mass Index (BMI) 16.5 Intake and Output for Last 24 Hours 02/23/19 02/24/19 02/25/19 23:59 23:59 23:59 Intake Total 360 / 360 600 / 600 Output Total 1100 / 1100 1300 / 1300 Balance -740 / -740 -700 / -700 General: Awake, Alert, Oriented x 3, Cooperative, No Acute Distress HEENT: Atraumatic, Normocephalic, PERRL, EOMI, Sclera Non Icteric Oral: Moist Mucosa Neck: Supple, Good ROM, No JVD Lungs: Diminished Leeroy Bases Cardiovascular: Irregular Rhythm, Normal S1, Normal S2 Murmur Murmur: Grade 3/6, Holosystolic, [place], Axilla Vascular: No Carotid Bruits Abdomen: Bowel Sounds Present, Soft, Non Tender Extremities: No Cyanosis, No Clubbing, Mild RLE Edema, Mild LLE Edema Neurological: No Focal Motor or Sensory Deficit Psych/Mental Status: Appropriate 02/24/19 15:30: Digoxin 1.38 02/24/19 15:30: Urine Color Yellow, Urine Clarity Clear, Urine pH 7.0, Ur Specific [place] 1.010, Urine Protein Negative, Urine Glucose (UA) Normal, Urine Ketones Negative, Urine Occult Blood Negative, Urine Nitrite Negative, Urine Bilirubin Negative, Urine Urobilinogen Normal, Ur Leukocyte Esterase 25 H, Urine RBC 0 SEEN, Urine WBC 0 SEEN 02/24/19 17:40: Troponin I < 0.015 02/24/19 20:45: Troponin I < 0.015 02/25/19 06:22: Sodium 127 L, Potassium 3.4 L, Chloride 87 L, Carbon Dioxide 33.0 H, Anion Gap 7, BUN 14, Creatinine 0.71, Est GFR (MDRD) Af Amer 103, Est GFR (MDRD) Non-Af 85, BUN/Creatinine Ratio 19.7, Glucose 85, Calcium 8.5 02/25/19 06:22: Serum Osmolality 259 L Rhythm: Atrial fibrillation EKG: As noted above ECHO: See official report Stress Test: 05-16-2005: [facility]: Stress myocardial perfusion study: Small fixed inferoseptal scar with no reversible ischemia noted with the changes being reported as most likely artifactual in nature with an LVEF of 52% Cardiac Cath: 05-10-2012: [facility], [place], [facility]: [place], [place]: Normal coronary cineangiography, normal left ventricular function, normal left ventricular hemodynamics CXR: As noted above: Please see official report Chest CT Scan: 11-15-2011: [facility], [place], [facility]: [place], [place]: Questionable abnormality in the proximal to mid LAD although this is not identified with certainty with poor visualization of the LCx especially in its mid to distal portion occlusion not excluded Assessment/Plan 1. Congestive heart failure: Chronic systolic The patient presents with findings compatible with her acute on chronic systolic CHF. She has undergone noninvasive evaluation as noted above. At the present time she will continue medical management. This will include diuretic therapy with the addition of afterload reducing agents. This is superimposed upon other agents as deemed appropriate such as nitrates, beta-blockers, digitalis, etc. 2. Atrial fibrillation: Persistent The patient appears to remaining in atrial fibrillation. This appears to be a long-standing diagnosis for her. She states she is undergone DC cardioversion in the past which has been unsuccessful. She is unclear whether she is truly undergone EPS/RFA in the past. At the present time she will need to continue rate control therapy. She will continue anticoagulant therapy. However anticoagulants may have to be temporarily interrupted for further cardiac or noncardiac procedures such as thoracentesis. 3. Mitral valve prolapse/mitral valve regurgitation She does have findings of underlying mitral valve prolapse with mitral valve regurgitation. Again this appears to be a chronic issue for her. This may be contributing to her elevated pulmonary pressures and her underlying CHF. At the moment she will need to continue medical management. Depending upon her clinical course consideration will have to be given as to whether or not based upon her fragile status, etc., as to whether or not she could be considered for any future intervention of her mitral valve either percutaneously or surgically. Prior to such she would have to undergo additional cardiovascular evaluation for the possibility of underlying CAD via noninvasive and/or repeat invasive studies. 4. Pleural effusions The patient does have bilateral pleural effusions. These also appear to be chronic. They may worsen with her acute exacerbations. At the moment she is being treated medically with diuretics. However she may require thoracentesis therapy especially of the right pleural effusion. Thus would be reasonable to place her anticoagulants on hold at this time (with respect to her oral anticoagulants) pending response of her medical therapy and the need for possible thoracentesis. Overall, status post review of the patient's case, at the current time the consensus was for continued conservative medical management. Depending upon the patient's outcome with medical therapy, and possibly thoracentesis, consideration might be given as to how far to proceed with additional cardiac diagnostic studies either noninvasive or invasive with respect to concerns of her atrial fibrillation and her mitral valve disease process. The above was discussed with the patient and her family members present. This note was generated with [employer] software. It may contain incorrect words, spelling, and punctuation that were not noted in checking the note before signing.
--- NOTE | 2019-02-25 17:07 | CHAPLAIN ---
Type of Pastoral Visit _x__ Initial Visit ___ Follow-up Visit ___ On-call Visit ___ General Patient Visit ___ Spiritual Assessment ___ Family Conference ___ Bereavement ___ Rapid Response ___ Code Blue ___ Other (describe below) Pastoral Care Referral From _x__ Patient ___ Family ___ Nurse ___ Physician ___ Repairer [employer] Systems [employer] Equipment ___ Business Services Assistant ___ Other (describe below) Sacrament/Intervention ___ Active listening ___ Anointing ___ Lutheran ___ Bereavement ___ Communion ___ Sigrid exploration ___ ___ Life review ___ Prayer ___ Reconciliation ___ Sacrament of Sick ___ Supportive presence ___ Wedding _x__ Other (describe below) Pastoral Comments brief encounter; RT came to do treatment on patient so this silverware cleaner departed room
--- NOTE | 2019-02-25 20:14 | PN_ITS ---
Patient Problems: Active and Suspected Problems (Last Reviewed 02/24/19 @ 16:48 by Lester Fitzgerald DO) Hyponatremia (Acute) Subjective: She was seen and examined today, she was admitted yesterday for congestive heart failure which appears to be congestive heart failure with reduced ejection fraction. Patient's last echocardiogram performed in December 2018 showed her EF to be 40%, she had severe mitral regurg. I had cardiology consult on the patient today and her echocardiogram was repeated and according to Dr. Pereira, the echocardiogram is unchanged from December of this year. Cardiology is not sure of the etiology of the congestive heart failure and could be due to multiple factors-patient is atrial fib, patient severe mitral regurg, or undiagnosed coronary artery disease. Cardiology is recommended so far just to treat the patient medically and hold her Eliquis for now in case she needs to undergo a thoracentesis. - Physical Exam General: Alert, Oriented x3, Cooperative, No apparent distress, Well developed HEENT: Atraumatic, PERRLA, EOMI, Normocephalic Oral: Moist Mucosa Neck: Supple, No JVD, Negative Carotid Bruits, Trachea Midline, Thyroid Normal Size and Texture Lungs: No rhonchi, No wheeze, Diminished, Rales - Fine rales on inspiration at the bases Cardiovascular: Irregular Rate, Murmur - 2/6 systolic murmur is noted at the apex and left sternal border Abdomen: Bowel Sounds Present, Soft, Non Tender, Non-Distended Extremities: No clubbing, No cyanosis, Capillary Refill Less than 3 Seconds Skin: No rashes, No breakdown Musculoskeletal: No Tenderness to Palpation of Joints or Extremities Neurological: Cranial nerves II-XII grossly intact, Neuro grossly intact, Sensory exam intact to light touch and pain, Coordination normal Psych/Mental Status: Normal Affect, Appropriate, Alert and oriented to time, place, person, mood and affect Vital Signs Temp Pulse Resp BP Pulse Ox 97.9 F 87 16 103/55 L 97 02/25/19 18:00 02/25/19 19:00 02/25/19 18:00 02/25/19 18:00 02/25/19 18:00 Oxygen Delivery Method Room Air Weight: 43.3 kg Body Mass Index (BMI) 16.5 Intake and Output for Last 24 Hours 02/23/19 02/24/19 02/25/19 23:59 23:59 23:59 Intake Total 360 / 360 1080 / 1080 Output Total 1100 / 1100 1750 / 1750 Balance -740 / -740 -670 / -670 Laboratory Tests Past 24 Hrs 02/24/19 02/24/19 02/24/19 20:23 20:23 20:45 Sodium Potassium Chloride Carbon Dioxide Anion Gap BUN Creatinine Estim Creat Clear Calc Est GFR (MDRD) Af Amer Est GFR (MDRD) Non-Af BUN/Creatinine Ratio Glucose Serum Osmolality Calcium Troponin I < 0.015 TSH Cortisol Urine Osmolality 202 Ur Random Sodium 75 02/25/19 02/25/19 02/25/19 06:22 06:22 06:22 Sodium 127 L Potassium 3.4 L Chloride 87 L Carbon Dioxide 33.0 H Anion Gap 7 BUN 14 Creatinine 0.71 Estim Creat Clear Calc 32.72 Est GFR (MDRD) Af Amer 103 Est GFR (MDRD) Non-Af 85 BUN/Creatinine Ratio 19.7 Glucose 85 Serum Osmolality 259 L Calcium 8.5 Troponin I TSH 2.79 Cortisol 11.00 Urine Osmolality Ur Random Sodium Medical Necessity - Tobacco Use Smoking Status: Never smoker Tobacco Use: Chew Assessment/Plan All Active Problems (Last Reviewed 02/24/19 @ 16:48 by Lester Fitzgerald DO) (HFpEF) heart failure with preserved ejection fraction (Ruled-out) Hyponatremia (Acute) Hyponatremia (Acute) CAP (community acquired pneumonia) (Resolved) Mild dehydration (Resolved) Shortness of breath (Acute) Hypotension (Resolved) #1 acute on chronic systolic congestive heart failure-continue IV Lasix, cardiology has been consulted, repeat chest x-ray tomorrow #2 severe mitral regurg #3 cardiomyopathy-etiology unclear at this point, possibly rate related or related to undocumented coronary artery disease or valvular heart disease- cardiology is participating in her care #4 hyponatremia-possibly secondary to excessive water intake-monitor labs #5 hypokalemia-probably secondary to IV Lasix, labs will be rechecked, patient was given oral potassium #6 severe malnutrition-nutritional services is seeing patient Code Visit Inpatient E&M: 49404 Subs Hosp L2
[2019-02-25] MEDS: Lisinopril 2.5 MG Tablet PO (21:31)
[2019-02-25] MEDS: clonazePAM 0.5 MG Tablet 0.25 MG PO (21:31)
[2019-02-26] VITALS (11 sets, daily range): BP systolic 102–114; BP diastolic 54–58; PULSE 72–100; RESP 16–18; TEMP 36.6–36.9; O2SAT 93–98
[2019-02-26] MEDS: Thyroid 15 MG Tablet 30 MG PO (06:07)
[2019-02-26] MEDS: Albuterol 2.5 MG/3 ML VIAL.NEB. INHALATION (06:47)
[2019-02-26 06:58] LABS: Anion Gap 2 (5-15); BUN 18 mg/dL (7-18); BUN/Creat Ratio 23.4 RATIO (10-20); Calcium,Total 8.6 mg/dL (8.5-10.1); Chloride 89 mmol/L (98-107); Creatinine, Serum 0.77 mg/dL (0.55-1.02); EST Glomerular Filtration Rate 77 mL/min (>60); Est Glom Filt Rate - Afr Amer 94 mL/min (>60); Estimated Creatinine Clearance 33.02 ml/min; Glucose 84 mg/dL (74-106); Potassium 4.2 mmol/L (3.5-5.1); Sodium Level 127 mmol/L (136-145)
--- NOTE | 2019-02-26 07:45 | RAD_ITS ---
STUDY: X-RAY CHEST REASON FOR EXAM: Female, 78 years old. TECHNIQUE: 2 views COMPARISON: February 24, 2019 FINDINGS: Still noted bilateral pleural effusion slightly more on the right side with heavy markings at the bases. The upper lung smith and apices are clear. The cardiac silhouette is not enlarged. The trachea is in the midline. The visualized bony structures are intact. No significant change noted since February 24, 2019. Electronically Signed: Tino Dinero, at 8:18 EDT Tel , Service support , RAD/Chest PA and Lateral
[2019-02-26] MEDS: Multivitamins,Therapeutic Tablet 1 TABLET PO (08:50)
[2019-02-26] MEDS: Digoxin 125 MCG Tablet PO (08:51)
[2019-02-26] MEDS: Metoprolol Tartrate 50 MG Tablet PO ×2 (08:51→21:29)
[2019-02-26] MEDS: Furosemide 40 MG/4 ML Vial IV ×2 (08:51→17:09)
[2019-02-26] MEDS: Polyethylene Glycol 3350 17 GM PACKET PO (08:52)
[2019-02-26] MEDS: Lisinopril 2.5 MG Tablet PO ×2 (08:53→21:29)
--- NOTE | 2019-02-26 09:05 | PCM.PN.CARD ---
Subjectve: The patient is awake and alert. She believes her breathing and lower extremity edema has improved. She has no other new acute complaints. Objective: Vital Signs Temp Pulse Resp BP Pulse Ox 97.9 F 94 16 102/57 L 93 02/26/19 03:20 02/26/19 08:51 02/26/19 06:47 02/26/19 03:20 02/26/19 03:20 Oxygen Delivery Method Room Air Weight: 96 lb 5.472 oz Body Mass Index (BMI) 16.5 Intake and Output for Last 24 Hours 02/24/19 02/25/19 02/26/19 23:59 23:59 23:59 Intake Total 360 / 360 1315 / 1315 220 / 220 Output Total 1100 / 1100 2650 / 2650 Balance -740 / -740 -1335 / -1335 220 / 220 General: Awake, Alert, Oriented x 3, Cooperative, No Acute Distress, - - Thin/frail appearing HEENT: Atraumatic, Normocephalic, PERRL, EOMI, Sclera Non Icteric Oral: Moist Mucosa Neck: Supple, Good ROM, No JVD Lungs: Diminished Leeroy Bases Cardiovascular: Irregular Rhythm, Normal S1, Normal S2 Murmur Murmur: Grade 3/6, Holosystolic, [place], Axilla Abdomen: Bowel Sounds Present, Soft, Non Tender Extremities: Mild RLE Edema, Mild LLE Edema Psych/Mental Status: Appropriate 02/26/19 06:25: Sodium 127 L, Potassium 4.2, Chloride 89 L, Carbon Dioxide 36.0 H, Anion Gap 2 L, BUN 18, Creatinine 0.77, Est GFR (MDRD) Af Amer 94, Est GFR (MDRD) Non-Af 77, BUN/Creatinine Ratio 23.4 H, Glucose 84, Calcium 8.6 Rhythm: Atrial fibrillation CXR: Preliminary evaluation: Continued bilateral pleural effusions: Compared to the previous study the bilateral pleural effusions are present although may be somewhat less prominent: Please see the official report Medical Necessity - Tobacco Use Smoking Status: Never smoker Tobacco Use: Chew Assessment/Plan 1. Congestive heart failure: Chronic systolic The patient presents with findings compatible with her acute on chronic systolic CHF. She has undergone noninvasive evaluation as noted above. At the present time she will continue medical management. This will include diuretic therapy with the addition of afterload reducing agents. This is superimposed upon other agents as deemed appropriate such as nitrates, beta-blockers, digitalis, etc. 2. Atrial fibrillation: Persistent The patient appears to remaining in atrial fibrillation. This appears to be a long-standing diagnosis for her. She states she is undergone DC cardioversion in the past which has been unsuccessful. She is unclear whether she is truly undergone EPS/RFA in the past. At the present time she will need to continue rate control therapy. She will continue anticoagulant therapy. However anticoagulants may have to be temporarily interrupted for further cardiac or noncardiac procedures such as thoracentesis. 3. Mitral valve prolapse/mitral valve regurgitation She does have findings of underlying mitral valve prolapse with mitral valve regurgitation. Again this appears to be a chronic issue for her. This may be contributing to her elevated pulmonary pressures and her underlying CHF. At the moment she will need to continue medical management. Depending upon her clinical course consideration will have to be given as to whether or not based upon her fragile status, etc., as to whether or not she could be considered for any future intervention of her mitral valve either percutaneously or surgically. Prior to such she would have to undergo additional cardiovascular evaluation for the possibility of underlying CAD via noninvasive and/or repeat invasive studies. 4. Pleural effusions The patient does have bilateral pleural effusions. These also appear to be chronic. Based upon her chest x-ray they may be somewhat less prominent today. At the moment she is being treated medically with diuretics. However she may require thoracentesis therapy especially of the right pleural effusion. Thus would be reasonable to place her anticoagulants on hold at this time (with respect to her oral anticoagulants) pending response of her medical therapy and the need for possible thoracentesis. Overall, status post review of the patient's case, at the current time the consensus was for continued conservative medical management. Depending upon the patient's outcome with medical therapy, and possibly thoracentesis, consideration might be given as to how far to proceed with additional cardiac diagnostic studies either noninvasive or invasive with respect to concerns of her atrial fibrillation and her mitral valve disease process. The above was discussed with the patient and Dr. Thakur. This note was generated with [employer] software. It may contain incorrect words, spelling, and punctuation that were not noted in checking the note before signing.
[2019-02-26] MEDS: Acetaminophen 325 MG Tablet 650 MG PO ×2 (11:38→19:51)
--- NOTE | 2019-02-26 13:09 | CHAPLAIN ---
Type of Pastoral Visit _x__ Initial Visit ___ Follow-up Visit ___ On-call Visit ___ General Patient Visit ___ Spiritual Assessment ___ Family Conference ___ Bereavement ___ Rapid Response ___ Code Blue ___ Other (describe below) Pastoral Care Referral From _x__ Patient ___ Family ___ Nurse ___ Physician ___ [employer] Crane Operator ___ Engineering And Development Director ___ Other (describe below) Sacrament/Intervention ___ Active listening ___ Anointing ___ Confucianism ___ Bereavement ___ Communion ___ Sigrid exploration ___ ___ Life review _x__ Prayer ___ Reconciliation ___ Sacrament of Sick _x__ Supportive presence ___ Wedding ___ Other (describe below) Pastoral Comments
--- NOTE | 2019-02-26 19:27 | PN_ITS ---
Patient Problems: Active and Suspected Problems (Last Reviewed 02/24/19 @ 16:48 by Lester Fitzgerald DO) Hyponatremia (Acute) Subjective: Patient was seen and examined today, I discussed her medical care with her and her daughter who is in the room today, patient told me she would not want to proceed with a cardiac catheterization if recommended, she would rather just take medication for her cardiac issues. She question whether she would need a mitral valve replaced and I told her that she could discuss this with cardiology at her office visit, I did not have an opinion as to whether it was time for her to proceed with anything like that. I briefly talked with cardiology about her care today. - Physical Exam General: Alert, Oriented x3, Cooperative, No apparent distress, Well developed HEENT: Atraumatic, PERRLA, EOMI, Normocephalic Oral: Moist Mucosa Neck: Supple, Trachea Midline, Thyroid Normal Size and Texture Lungs: Clear to auscultation, Diminished, Rales - Inspiratory rales at the bases of both lungs Cardiovascular: PMI Normal, Irregular Rate, No rub noted Abdomen: Bowel Sounds Present, Soft, Non Tender, Non-Distended, No hernias noted Extremities: No clubbing, No cyanosis, No edema, Capillary Refill Less than 3 Seconds Skin: No rashes, No breakdown Musculoskeletal: No Tenderness to Palpation of Joints or Extremities Neurological: Cranial nerves II-XII grossly intact, Neuro grossly intact, Sensory exam intact to light touch and pain, Coordination normal Psych/Mental Status: Normal Affect, Appropriate, Alert and oriented to time, place, person, mood and affect Vital Signs Temp Pulse Resp BP Pulse Ox 98.4 F 78 18 102/54 L 97 02/26/19 15:20 02/26/19 16:07 02/26/19 15:20 02/26/19 15:20 02/26/19 15:20 Oxygen Delivery Method Room Air Weight: 43.7 kg Body Mass Index (BMI) 16.5 Intake and Output for Last 24 Hours 02/24/19 02/25/19 02/26/19 23:59 23:59 23:59 Intake Total 360 / 360 1315 / 1315 1060 / 1060 Output Total 1100 / 1100 2650 / 2650 900 / 900 Balance -740 / -740 -1335 / -1335 160 / 160 Laboratory Tests Past 24 Hrs 02/26/19 06:25 Sodium 127 L Potassium 4.2 Chloride 89 L Carbon Dioxide 36.0 H Anion Gap 2 L BUN 18 Creatinine 0.77 Estim Creat Clear Calc 33.02 Est GFR (MDRD) Af Amer 94 Est GFR (MDRD) Non-Af 77 BUN/Creatinine Ratio 23.4 H Glucose 84 Calcium 8.6 Medical Necessity - Tobacco Use Smoking Status: Never smoker Tobacco Use: Chew Assessment/Plan All Active Problems (Last Reviewed 02/24/19 @ 16:48 by Lester Fitzgerald DO) (HFpEF) heart failure with preserved ejection fraction (Ruled-out) Hyponatremia (Acute) Hyponatremia (Acute) CAP (community acquired pneumonia) (Resolved) Mild dehydration (Resolved) Shortness of breath (Acute) Hypotension (Resolved) #1 acute on chronic systolic congestive heart failure-continue IV Lasix, cardiology is participating in her care, repeat chest x-ray tomorrow, repeat BMP tomorrow #2 severe mitral regurg #3 cardiomyopathy-etiology unclear at this point, possibly rate related or r elated to undocumented coronary artery disease or valvular heart disease- cardiology is participating in her care #4 hyponatremia-possibly secondary to excessive water intake-monitor labs, patient's sodium is better today #5 hypokalemia-corrected at this time #6 severe malnutrition-nutritional services is seeing patient Code Visit Inpatient E&M: 29803 Subs Hosp L2
[2019-02-26] MEDS: clonazePAM 0.5 MG Tablet 0.25 MG PO (21:29)
[2019-02-27 03:00] VITALS: PULSE 74
[2019-02-27 03:20] VITALS: BP 115/56; PULSE 71; RESP 18; TEMP 36.8; O2SAT 99
[2019-02-27] MEDS: Acetaminophen 325 MG Tablet 650 MG PO (05:19)
[2019-02-27] MEDS: Thyroid 15 MG Tablet 30 MG PO (05:19)
[2019-02-27 06:17] LABS: Anion Gap 7 (5-15); BUN 21 mg/dL (7-18); BUN/Creat Ratio 30.3 RATIO (10-20); Calcium,Total 8.8 mg/dL (8.5-10.1); Chloride 87 mmol/L (98-107); Creatinine, Serum 0.69 mg/dL (0.55-1.02); EST Glomerular Filtration Rate 87 mL/min (>60); Est Glom Filt Rate - Afr Amer 106 mL/min (>60); Estimated Creatinine Clearance 32.87 ml/min; Glucose 79 mg/dL (74-106); Sodium Level 131 mmol/L (136-145)
[2019-02-27 07:17] VITALS: PULSE 71
[2019-02-27 09:15] VITALS: BP 107/69; PULSE 81; RESP 18; TEMP 36.4; O2SAT 97
--- NOTE | 2019-02-27 09:15 | RAD_ITS ---
STUDY: X-RAY CHEST REASON FOR EXAM: Female, 78 years old. TECHNIQUE: 2 views COMPARISON: February 26, 2019. FINDINGS: Again noted bilateral pleural effusion more so on the right side with hyperinflation of both lung smith underlying infiltrate at the bases particularly the right lung. The upper lung smith and apices are clear. The cardiac silhouette is not enlarged. The visualized bony structures are intact. The trachea is in the midline. RAD/Chest PA and Lateral IMPRESSION: Bilateral pleural effusion more so on the right side without significant hyperinflation of both lung smith. No change seen since the study obtained the day before. Electronically Signed: Tino Dinero, at 10:18 EDT Tel , Service support ,
--- NOTE | 2019-02-27 10:02 | PCM.PN.CARD ---
Subjectve: The patient is awake and alert. She denies any ongoing chest discomfort. She states overall her breathing has improved. However she also states she is still not able to lie supine and breathe comfortably. Objective: Vital Signs Temp Pulse Resp BP Pulse Ox 97.6 F L 81 18 107/69 97 02/27/19 09:15 02/27/19 09:15 02/27/19 09:15 02/27/19 09:15 02/27/19 09:15 Oxygen Delivery Method Room Air Weight: 95 lb 14.417 oz Body Mass Index (BMI) 16.5 Intake and Output for Last 24 Hours 02/25/19 02/26/19 02/27/19 23:59 23:59 23:59 Intake Total 1315 / 1315 1120 / 1120 60 / 60 Output Total 2650 / 2650 1450 / 1450 300 / 300 Balance -1335 / -1335 -330 / -330 -240 / -240 General: Awake, Alert, Oriented x 3, Cooperative, No Acute Distress HEENT: Atraumatic, Normocephalic, PERRL, EOMI, Sclera Non Icteric Neck: Supple, Good ROM, No JVD Lungs: Diminished [place]oy Bases - Right greater than left Cardiovascular: Irregular Rhythm, Normal S1, Normal S2 Murmur Murmur: Grade 3/6, Holosystolic, [place], Axilla Abdomen: Bowel Sounds Present, Soft, Non Tender Extremities: Trace RLE Edema, Trace LLE Edema Psych/Mental Status: Appropriate 02/27/19 05:30: Sodium 131 L, Potassium 4.0, Chloride 87 L, Carbon Dioxide 37.0 H, Anion Gap 7, BUN 21 H, Creatinine 0.69, Est GFR (MDRD) Af Amer 106, Est GFR (MDRD) Non-Af 87, BUN/Creatinine Ratio 30.3 H, Glucose 79, Calcium 8.8 Rhythm: Atrial fibrillation CXR: Preliminary evaluation: Continued bilateral pleural effusions: Right greater than left: Compared to her original chest x-ray from this admission they may be somewhat less prominent: Final report pending Medical Necessity - Tobacco Use Smoking Status: Never smoker Tobacco Use: Chew Assessment/Plan 1. Congestive heart failure: Chronic systolic The patient presents with findings compatible with her acute on chronic systolic CHF. She has undergone noninvasive evaluation as noted above. At the present time she will continue medical management. This will include diuretic therapy with the addition of afterload reducing agents. This is superimposed upon other agents as deemed appropriate such as nitrates, beta-blockers, digitalis, etc. 2. Atrial fibrillation: Persistent The patient appears to remaining in atrial fibrillation. This appears to be a long-standing diagnosis for her. She states she is undergone DC cardioversion in the past which has been unsuccessful. She is unclear whether she is truly undergone EPS/RFA in the past. At the present time she will need to continue rate control therapy. She will continue anticoagulant therapy. However anticoagulants may have to be temporarily interrupted for further cardiac or noncardiac procedures such as thoracentesis. 3. Mitral valve prolapse/mitral valve regurgitation She does have findings of underlying mitral valve prolapse with mitral valve regurgitation. Again this appears to be a chronic issue for her. This may be contributing to her elevated pulmonary pressures and her underlying CHF. At the moment she will need to continue medical management. The patient states she has considered her options. At the moment she wants to continue medical management. She does not want to proceed with further cardiovascular evaluation or care with respect to her mitral valve, etc. 4. Pleural effusions The patient does have bilateral pleural effusions. These also appear to be chronic. Based upon her chest x-ray they may be somewhat less prominent today. At the moment she is being treated medically with diuretics. However she may require thoracentesis therapy especially of the right pleural effusion. Thus would be reasonable to place her anticoagulants on hold at this time (with respect to her oral anticoagulants) pending response of her medical therapy and the need for possible thoracentesis. The above was discussed with the patient and Dr. Thakur. This note was generated with [employer] software. It may contain incorrect words, spelling, and punctuation that were not noted in checking the note before signing.
[2019-02-27 10:03] VITALS: PULSE 66
[2019-02-27] MEDS: Digoxin 125 MCG Tablet PO (10:03)
[2019-02-27] MEDS: Lisinopril 2.5 MG Tablet PO (10:03)
[2019-02-27] MEDS: Multivitamins,Therapeutic Tablet 1 TABLET PO (10:03)
[2019-02-27] MEDS: Furosemide 40 MG/4 ML Vial IV (10:03)
[2019-02-27] MEDS: Metoprolol Tartrate 50 MG Tablet PO (10:03)
[2019-02-27] MEDS: Ibuprofen 400 MG Tablet PO (10:06)
[2019-02-27 13:21] VITALS: O2SAT 98
--- NOTE | 2019-02-27 15:11 | DCINST_ITS ---
- Discharge Diagnoses Current Active Problems: Current Active and Chronic Problems (Last Reviewed 02/24/19 @ 16:48 by Lester Fitzgerald DO) Hyponatremia (Acute) Pleural effusion (Chronic) CHF (congestive heart failure) (Chronic) Mitral valve insufficiency (Chronic) You will use the following diet at home:: No restrictions Your food should be the consistency of: Regular Your liquids should be the consistency of: Regular/Thin Discharge Activity: Return to Normal Activity Weight Bearing Status: Full weight bearing Allergies/Adverse Reactions: Allergies gluten Allergy (Intermediate, Verified 02/24/19 12:13) Unknown lactose Allergy (Intermediate, Verified 02/24/19 12:13) unknown Medications to take at Discharge polyethylene glycol 3350 17 gram oral powder packet 17 g PO DAILY 06/20/18 Acetaminophen [Acetaminophen ER] 325 mg PO Q6H PRN 12/01/18 Cholecalciferol (Vitamin D3) [Vitamin D3] 2,000 units PO DAILY 12/01/18 clonazepam 0.5 mg tablet 0.25 mg PO QHS #90 tab 12/11/18 Apixaban [Eliquis] 5 mg PO BID 02/24/19 Cyanocobalamin/Folic Acid [Vitamin V19-Rceuu Acid Tablet] 1 tab PO DAILY 02/24/19 Digoxin 125 mcg PO DAILY 02/24/19 Multivitamin with Minerals [Multiple Vitamin] 1 tab PO DAILY 02/24/19 Thyroid,Pork [[place] Thyroid] 30 mg PO DAILY 02/24/19 proCHLORPERazine tablet [Compazine tablet] 5 mg PO TID PRN PRN 02/24/19 Ensure Enlive 120 ml PO 4X/DAY liquid 02/27/19 Furosemide [Lasix] 40 mg PO BIDLX #60 tab 02/27/19 Lisinopril [Zestril] 2.5 mg PO BID #60 tab 02/27/19 Metoprolol Tartrate [Lopressor (beta obie)] 50 mg PO BID #60 tab 02/27/19 Potassium Chloride 20 meq PO DAILY #60 tablet.er 02/27/19 The following prescriptions were given: Furosemide [Lasix] 40 mg PO BIDLX #60 tab Transmission Status: Pending to [id number] Metoprolol Tartrate [Lopressor (beta obie)] 50 mg PO BID #60 tab Transmission Status: Pending to [id number] Potassium Chloride 20 meq PO DAILY #60 tablet.er Transmission Status: Pending to [id number] Lisinopril [Zestril] 2.5 mg PO BID #60 tab Transmission Status: Pending to [facility] #[id number] Primary Care Physician: Daljit Sen DO [Primary Care Provider] - Please follow up with your Primary Care Physician in: in 1-2 weeks Test Results: Test results from this visit will be discussed in further detail at your follow- up appointment, if applicable. Please Follow Up With: Leonidas Pereira MD When: in 3 weeks-call for appointment
--- NOTE | 2019-02-27 15:23 | CASEMGMT ---
SHEYLA DARLING NOTE: Home O2 qualification testing has been completed and reviewed. Pt does not qualify for Home O2. Isra COBOS RN CM
--- NOTE | 2019-02-27 18:24 | DS.PCM_ITS ---
Discharge Date and Diagnosis Date of Admission: 02/24/19 Date of Discharge: 02/27/19 - Primary Discharge Diagnosis #1 acute on chronic systolic congestive heart failure #2 severe mitral regurg #3 cardiomyopathy-etiology unclear at this point, possibly rate related or related to undocumented coronary artery disease or valvular heart disease #4 hyponatremia-possibly secondary to excessive water intake #5 hypokalemia #6 severe malnutrition - Secondary Discharge Diagnosis Chronic Problems (Last Reviewed 02/24/19 @ 16:48 by Lester Fitzgerald DO) Pleural effusion (Chronic) CHF (congestive heart failure) (Chronic) Mitral valve insufficiency (Chronic) Atrial fibrillation (Chronic) Paroxysmal atrial fibrillation (Chronic) Nonrheumatic mitral (valve) prolapse (Chronic) Hypothyroidism (Chronic) History of basal cell carcinoma (Chronic) Anxiety and depression (Chronic) History of cataract (Chronic) Heart murmur (Chronic) GERD (gastroesophageal reflux disease) (Chronic) IBS (irritable bowel syndrome) (Chronic) History of hepatitis (Chronic) Hormone replacement therapy (Chronic) Hospital Course and Treatment Operations: None Procedures: 2-D Echocardiogram Summary of Care Provided: The patient is a 78 year old F was seen in the emergency room at [facility] with chief complaint of shortness of breath. Patient recently had complaints of increasing shortness of breath as an outpatient with exertional dyspnea and leg edema and was placed on furosemide by her PCP. Evaluation in the emergency room included a chest x-ray which showed evidence of pulmonary edema and bilateral pleural effusions, patient's sodium was decreased at 120, beta natruretic peptide was elevated. Patient was admitted to PCU for acute on chronic systolic congestive heart failure, she was seen in consultation by cardiology, placed on IV Lasix, and her cardiac medications were adjusted. Discussions were carried out with the patient as to how aggressive to get with her care, patient did not want to undergo cardiac catheterization or thoracentesis during her hospital admission and wanted to be treated medically. Patient improved during her hospitalization. On 02/27/2019, patient was seen and examined: On examination she appeared in good health and spirits. Vital signs as documented. Skin warm and dry and without overt rashes. Neck without JVD. Lungs clear. Heart exam notable for irregular rhythm,. Abdomen unremarkable and without evidence of organomegaly, masses, or abdominal aortic enlargement. Extremities: Mild lower extremity edema was noted bilaterally. Neuro: Cranial nerves II through XII are grossly intact, no focal motor deficits were noted, sensation to light touch and pinprick is intact. Psych: Patient is alert and oriented x3, she does not appear anxious or depressed On 02/27/2019, patient was seen and examined and felt to be stable condition for discharge home - Physical Exam Vital Signs Temp Pulse Resp BP Pulse Ox 97.6 F L 66 18 107/69 98 02/27/19 09:15 02/27/19 10:03 02/27/19 09:15 02/27/19 09:15 02/27/19 13:21 Oxygen Flow Rate (L/min) [ 0 AMBULATING on Room Air] Oxygen Flow Rate (L/min) [At 0 REST on Room Air] Oxygen Delivery Method Room Air Weight: 43.5 kg Body Mass Index (BMI) 16.5 Intake and Output for Last 24 Hours 02/25/19 02/26/19 02/27/19 23:59 23:59 23:59 Intake Total 1315 / 1315 1120 / 1120 300 / 300 Output Total 2650 / 2650 1450 / 1450 900 / 900 Balance -1335 / -1335 -330 / -330 -600 / -600 Laboratory Tests Past 24 Hrs 02/27/19 05:30 Sodium 131 L Potassium 4.0 Chloride 87 L Carbon Dioxide 37.0 H Anion Gap 7 BUN 21 H Creatinine 0.69 Estim Creat Clear Calc 32.87 Est GFR (MDRD) Af Amer 106 Est GFR (MDRD) Non-Af 87 BUN/Creatinine Ratio 30.3 H Glucose 79 Calcium 8.8 Discharge Activity: Return to Normal Activity Weight Bearing Status: Full weight bearing Home Medications: Medications to take at Discharge polyethylene glycol 3350 17 gram oral powder packet 17 g PO DAILY 06/20/18 Acetaminophen [Acetaminophen ER] 325 mg PO Q6H PRN 12/01/18 Cholecalciferol (Vitamin D3) [Vitamin D3] 2,000 units PO DAILY 12/01/18 clonazepam 0.5 mg tablet 0.25 mg PO QHS #90 tab 12/11/18 Apixaban [Eliquis] 5 mg PO BID 02/24/19 Cyanocobalamin/Folic Acid [Vitamin Y26-Ziwty Acid Tablet] 1 tab PO DAILY 02/24/19 Digoxin 125 mcg PO DAILY 02/24/19 Multivitamin with Minerals [Multiple Vitamin] 1 tab PO DAILY 02/24/19 Thyroid,Pork [[place] Thyroid] 30 mg PO DAILY 02/24/19 proCHLORPERazine tablet [Compazine tablet] 5 mg PO TID PRN PRN 02/24/19 Ensure Enlive 120 ml PO 4X/DAY liquid 02/27/19 Furosemide [Lasix] 40 mg PO BIDLX #60 tab 02/27/19 Lisinopril [Zestril] 2.5 mg PO BID #60 tab 02/27/19 Metoprolol Tartrate [Lopressor (beta obie)] 50 mg PO BID #60 tab 02/27/19 Potassium Chloride 20 meq PO DAILY #60 tablet.er 02/27/19 Following Prescrptions Were Given to Patient: Furosemide [Lasix] 40 mg PO BIDLX #60 tab Transmission Status: Re[facility] by [id number] Metoprolol Tartrate [Lopressor (beta obie)] 50 mg PO BID #60 tab Transmission Status: Received by [id number] Potassium Chloride 20 meq PO DAILY #60 tablet.er Transmission Status: Received by [id number] Lisinopril [Zestril] 2.5 mg PO BID #60 tab Transmission Status: Re[facility] by [id number] Primary Care Physician: Daljit Sen DO [Primary Care Provider] - Please follow up with your Primary Care Physician in: in 1-2 weeks Please Follow Up With: Leonidas Pereira MD When: in 3 weeks-call for appointment Disposition: Home Minutes spent on discharge:: 32 Patient Condition:: Stable Medical Necessity - Tobacco Use Smoking Status: Never smoker Tobacco Use: Chew Meaningful Use Info Meaningful Use Diagnoses (Choose all that apply): CHF - CHF DALJIT/ARB ordered at discharge?: Yes Documented LVEF (%): 45 Code Visit Inpatient E&M: 22901 Disch Hosp
== END 2019-02-27 16:04 | disposition home or self-care (01) | DRG 291 ==
LOC: ED 14:58 → PCU 16:47
PROVIDERS: Internal Medicine Cardiovascular Disease; Emergency Provider Emergency Medicine; Family Provider Family Medicine; PCP Family Medicine; Visit Provider Internal Medicine
DX: I50.23 Acute on chronic systolic (congestive) heart failure (principal); E43 Unspecified severe protein-calorie malnutrition; Z68.1 Body mass index [BMI] 19.9 or less, adult; I42.9 Cardiomyopathy, unspecified; E87.1 Hypo-osmolality and hyponatremia; I48.1 Persistent atrial fibrillation; E03.9 Hypothyroidism, unspecified; I34.1 Nonrheumatic mitral (valve) prolapse; I34.0 Nonrheumatic mitral (valve) insufficiency; E87.6 Hypokalemia; Z79.01 Long term (current) use of anticoagulants
CPT/HCPCS: 36415; 71046; 80048; 80162; 81001; 82533; 83880; 83930; 83935; 84300; 84443; 84484; 85025; 93306; 94640; 99283; A4216; J1940

== ENCOUNTER → 2019-03-05 13:36 | Outpatient (CLI) | payer MEDICARE, BC, SELFPAY ==
[2019-03-05 13:01] VITALS: BMI 16.5
--- NOTE | 2019-03-05 13:42 | RAD_ITS ---
STUDY: X-RAY CHEST REASON FOR EXAM: Female, 78 years old. FLUID ON LUNGS, HX CHF TECHNIQUE: Frontal and lateral views of the chest. COMPARISON: 02/27/2019. FINDINGS: Underexpansion of the lungs. Small right pleural effusion, smaller than previous exam. Essentially complete resolution of previous left-sided pleural effusion. Mild atelectasis the right lung base. Normal size heart. Normal mediastinum and clari. Normal visualized pulmonary arteries. Normal visualized aortic arch and descending thoracic aorta. Normal visualized thoracic spine. Normal visualized ribs, clavicles, and shoulders. There is no demonstrated abnormality of the visualized soft tissue structures of the upper abdomen. RAD/Chest PA and Lateral IMPRESSION: Small right pleural effusion remains with mild atelectasis in the right lung base. Findings significantly improved since prior study. COPD. Electronically Signed: Anant Thomas MD at 19:30 EDT , Service support ,
== END ==
PROVIDERS: Family Provider Family Medicine; PCP Family Medicine; Referring Provider Family Medicine; Visit Provider Family Medicine
DX: I50.30 Unspecified diastolic (congestive) heart failure (principal)
CPT/HCPCS: 71046

== ENCOUNTER → 2019-03-24 08:42 | Outpatient (CLI) | payer MEDICARE, BC, SELFPAY ==
[2019-03-21 11:22] VITALS: BMI 14.6
[2019-03-24 09:38] LABS: Anion Gap 7 (5-15); BUN 23 mg/dL (7-18); BUN/Creat Ratio 24.7 RATIO (10-20); Calcium,Total 9.1 mg/dL (8.5-10.1); Chloride 94 mmol/L (98-107); Creatinine, Serum 0.93 mg/dL (0.55-1.02); EST Glomerular Filtration Rate 62 mL/min (>60); Est Glom Filt Rate - Afr Amer 75 mL/min (>60); Glucose 93 mg/dL (74-106); Potassium 4.1 mmol/L (3.5-5.1); Sodium Level 136 mmol/L (136-145)
[2019-03-24 09:54] LABS: Digoxin Level 0.84 ng/mL (0.80-2.00)
== END ==
PROVIDERS: Family Provider Family Medicine; PCP Family Medicine; Referring Provider Internal Medicine Cardiovascular Disease; Visit Provider Internal Medicine Cardiovascular Disease
DX: I50.22 Chronic systolic (congestive) heart failure (principal); I43 Cardiomyopathy in diseases classified elsewhere
CPT/HCPCS: 36415; 80048; 80162

== ENCOUNTER → 2019-07-25 10:31 | Outpatient (CLI) | payer MEDICARE, BC, SELFPAY ==
[2019-07-25 09:46] VITALS: BMI 15.6
--- NOTE | 2019-07-25 10:35 | RAD_ITS ---
STUDY: X-RAY - PELVIS AND LEFT HIP REASON FOR EXAM: Female, 79 years old. Left hip pain following a recent fall. TECHNIQUE: 4 views of the pelvis and hip. COMPARISON: None. FINDINGS: There is a non-specific bowel gas pattern. Normal visualized soft tissue structures. There is narrowing with cortical sclerosis and osteophyte formation of the sacroiliac joint consistent with degenerative osteoarthritic changes. Normal bilateral superior and inferior pubic rami. Normal pubic symphysis. Normal bilateral ischial tuberosities. There is a nondisplaced impacted subcapital fracture of the proximal left femur. RAD/Hip uni 4+ views with Pelvis IMPRESSION: Nondisplaced impacted subcapital fracture of the proximal left femur. Electronically Signed: Josiah Araujo, at 11:02 EST , Service support ,
== END ==
PROVIDERS: Family Provider Family Medicine; PCP Family Medicine; Referring Provider Nurse Practitioner Family; Visit Provider Nurse Practitioner Family
DX: S72.012A Unspecified intracapsular fracture of left femur, initial encounter for closed fracture (principal); W19.XXXA Unspecified fall, initial encounter
CPT/HCPCS: 73503

== ENCOUNTER 2019-07-25 12:55 | Inpatient (IN) | payer MEDICARE, BC, SELFPAY ==
[2019-07-25] VITALS (10 sets, daily range): BP systolic 102–123; BP diastolic 58–72; PULSE 69–121; RESP 14–18; TEMP 36.4–36.6; O2SAT 97–100; BMI 15.6; BMI 15.4; BMI 14.8; BMI 14.9
--- NOTE | 2019-07-25 13:13 | EKG12_ITS ---
Test Reason : LOWER EXEMITRY Blood Pressure : / mmHG Vent. Rate : 095 BPM Atrial Rate : 096 BPM P-R Int : 000 ms QRS Dur : 084 ms QT Int : 334 ms P-R-T Axes : 000 088 069 degrees QTc Int : 419 ms Atrial fibrillation Nonspecific ST abnormality Abnormal ECG When compared with ECG of 24-FEB-2019 12:51, No significant change was found Confirmed by SALVATORE LUTHER, KOBY ([id number]), publications editor DANISH SIMPSON ([id number]) on 08/04/2019 12:03:33 PM Referred By: Nicolas Hyatt Confirmed By:KOBY CHASE MD
--- NOTE | 2019-07-25 13:13 | RAD_ITS ---
STUDY: X-RAY CHEST REASON FOR EXAM: Female, 79 years old. Preoperative evaluation. TECHNIQUE: PA and lateral views of the chest. COMPARISON: Comparison is made with prior examination dated March 05, 2019. FINDINGS: Hyperinflation. Decreased bronchovascular markings in both lungs suggestive of emphysematous changes. Mild degree of pleural parenchymal changes at the right lung base. This is improved as compared to prior study. There is no demonstrated pleural abnormality. Normal size heart. Normal mediastinum and clari. Normal visualized pulmonary arteries. Normal visualized aortic arch and descending thoracic aorta. There are degenerative changes of the visualized thoracic spine. Normal visualized ribs, clavicles, and shoulders. There is no demonstrated abnormality of the visualized soft tissue structures of the upper abdomen. RAD/Chest PA and Lateral IMPRESSION: Hyperinflation. Mild degree of residual pleural parenchymal changes at the right lung base. Electronically Signed: Josiah Araujo, at 14:11 EST , Service support ,
--- NOTE | 2019-07-25 13:21 | ED.VIS.INJ ---
History of Present Illness Chief Complaint: Lower Extremity Injury Informant: Patient Onset: Weeks - Fell from standing position 2 weeks ago Mechanism/Context: Fall Quality of Pain: Aching, Burning Location: Left groin/hip Current Severity: Mild Maximum Severity: Severe Worsened by: Weightbearing Relieved by: Remaining still Associated Symptoms: Negative for: Parasthesias, Weakness, Loss of function, Loss of consciousness Narrative: Should not is a 79-year-old woman with history of atrial fibrillation on Eliquis who fell 2 weeks ago onto her left side. She has had left hip pain since that time. She had an outpatient x-ray which was reviewed by me and reveals a impacted left subcapital fracture. Patient states she did bump her head when she fell. There was no loss conscious. She denies ocular, visual auditory symptoms. She denies trouble with speech or swallowing. She does complain of mild bilateral neck pain. She denies cardiac arrest or symptoms. She denies GI symptoms. She has no other complaints other than numbness anterior left leg. Tetanus Immunization: 5-10 years Prior similar symptoms: No Recent Illness/Hospitalization: No - Past Medical History (1) Anxiety and depression Status: Chronic (2) Chronic systolic (congestive) heart failure Status: Chronic (3) Hypothyroidism Status: Chronic (4) Nonrheumatic mitral (valve) insufficiency Status: Chronic (5) Nonrheumatic mitral (valve) prolapse Status: Chronic (6) Persistent atrial fibrillation Status: Chronic Past Medical History - Allergies and Home Meds Allergies/Adverse Reactions: Allergies gluten Allergy (Intermediate, Verified 07/25/19 13:01) Unknown lactose Allergy (Intermediate, Verified 07/25/19 13:01) unknown Primary Care Physician: Daljit Sen DO [Primary Care Provider] - Prior records reviewed: Yes Surgical History: cholecystectomy Lives: Alone Smoking Status: Never smoker Alcohol: None Drugs: None - Family History Maternal Family History: Family History (Last Reviewed 06/27/19 @ 16:02 by ARCHIE Thomas) Grandmother Colon cancer Grandfather Myocardial infarction Mother Heart disease Myocardial infarction Parkinsons Family History: Reports: No pertinent history Paternal Family History: Family History (Last Reviewed 06/27/19 @ 16:02 by ARCHIE Thomas) Grandmother Colon cancer Grandfather Myocardial infarction Mother Heart disease Myocardial infarction Parkinsons Family History: Reports: No pertinent history Review of Systems General: Denies: Chills, Fever, Sweats Eyes: Denies: Visual changes - bilaterally, Blurred Vision - bilaterally, Diplopia ENT: Denies: Bilateral ear pain, Rhinorrhea, Sore throat Cardiovascular: Denies: Chest pain, Palpitations Respiratory: Denies: Dyspnea, Cough, Dyspnea on exertion, Orthopnea, Paroxysmal nocturnal dyspnea Gastrointestinal: Denies: Abdominal pain, Nausea, Vomiting, Diarrhea, Melena, Hematochezia Genitourinary: Denies: Dysuria, Hematuria, Frequency Musculoskeletal: Reports: Extremity Pain. Denies: Myalgias, Arthralgias, Neck pain, Back pain, Swelling, -, - Skin: Denies: Rash, Wounds Neurological: Denies: Headache, Weakness, Parasthesia, Numbness, -, - Endocrine: Denies: Polyuria, Polydipsia Hematologic: Denies: Easy bruising, Easy bleeding Physical Exam Vital Signs/Narrative: Vital Signs Temp Pulse Resp BP Pulse Ox 07/25/19 12:56 97.9 F 69 14 105/66 100 Inital Vital Signs reviewed: Yes General: Well nourished, Well developed Head: Normocephalic, Atraumatic Eyes: Perrl, EOMI ENT: TM's clear, No hemotympanum or drainage, No trauma Neck: Nontender, Full ROM Cardiovascular: Regular rhythm, No murmurs, Normal S1, Irregular Respiratory: No distress, CTA bilaterally, Chest nontender Abdomen: Soft, Nontender, Nondistended, Normal bowel sounds, No masses Back: Nontender. Negative for: CVA Tenderness - Right, CVA Tenderness - Left, Spinal Tenderness, Paraspinal Tenderness Skin: Normal color, No rash, No Trauma. Negative for: Cyanosis, Diaphoresis, Jaundice Neurological: Alert, Oriented x3, Cranial nerves II-XII grossly intact, Normal Strength, Normal Sensation, Normal DTR. Negative for: Normal Gait Psychological: Normal affect, Normal Mood - Glascow Coma Scale Eye Opening: Spontaneous Motor: Obeys Commands Verbal: Oriented Coma Scale Total: 15 Diagnostic/Tx/Re-eval Impressions Chest X-Ray 07/25/19 13:13 IMPRESSION: Hyperinflation. Mild degree of residual pleural parenchymal changes at the right lung base. Electronically Signed: Josiah Araujo, at 14:11 EST , Service support , 07/25/19 13:13 Chest PA and Lateral [RAD] Stat Laboratory Results 07/25/19 07/25/19 07/25/19 13:30 13:30 13:30 WBC 12.2 H RBC 4.34 Hgb 13.9 Hct 43.1 MCV 99.3 H MCH 32.0 MCHC 32.3 RDW Std Deviation 45.5 H RDW Coeff of Karis 12.4 Plt Count 334 MPV 9.6 Immature Gran % (Auto) 0.400 Neut % (Auto) 84.0 H Lymph % (Auto) 9.6 L [place] % (Auto) 5.2 Eos % (Auto) 0.3 Baso % (Auto) 0.5 Absolute Neuts (auto) 10.2 H Absolute Lymphs (auto) 1.17 Nucleated RBC % 0 PT 15.8 H INR 1.3 APTT 33.5 Sodium 134 L Potassium 4.4 Chloride 98 Carbon Dioxide 29.0 Anion Gap 7 BUN 21 H Creatinine 0.82 Estim Creat Clear Calc 40.48 Est GFR (MDRD) Af Amer 86 Est GFR (MDRD) Non-Af 71 BUN/Creatinine Ratio 25.5 H Glucose 82 Calcium 9.0 White count is slightly elevated, which is not significant. PT and PTT are unremarkable. Basic metabolic panel is unremarkable. Patient was typed and screened. Chest x-ray was interpreted by radiologist and is unremarkable for any acute pathology. Patient did require morphine for her left hip pain. The hospitalist and the orthopedic surgeon, Dr. Goyo Carnes was paged since patient require admission and ORIF - Medical Decision Making Since patient trauma occurred 2 weeks ago there is no need for CT imaging since she has no complaint of headache and no neuro symptoms and a nonfocal neurologic exam with a GCS of 15. Appropriate preoperative blood work was ordered including type and screen. Will contact Dr. martha cantu who is on for orthopedics and hospitalist once test results are available for review. ED Disposition - Plan for ED Patient: Disposition: Home or Assisted Living Diagnosis: Fracture of femoral neck, left, closed Referrals: Daljit Sen, [Primary Care Provider] -
[2019-07-25 13:47] LABS: Absolute Lymphocyte Count 1.17 X10^3/uL (0.83-4.51); Absolute Neutrophil Count 10.2 X10^3/uL (2.0-7.7); Basophil# 0.06 X10^3/uL; Basophil% 0.5 % (0-1); Eosinophil# 0.04 X10^3/uL; Eosinophils% 0.3 % (0-5); Hematocrit 43.1 % (37-47); Hemoglobin 13.9 g/dL (12.0-15.0); Lymphocyte # 1.17 X10^3/ul (4.0); Lymphocyte % 9.6 % (19-41); Mean Corp Hgb Conc 32.3 g/dL (32-36); Mean Corpuscular Volume 99.3 fL (81-99); Mean Platelet Vol. 9.6 fl (6.2-12.0); Monocyte# 0.63 X10^3/uL; Monocyte% 5.2 % (0-10); NRBC Flagged by Analyzer 0 % (0-5); Neutrophil # 10.21 X10^3/uL (2.7-7.7); Platelet Count 334 K/mm3 (150-450); RBC Distribution Width CV 12.4 % (11.6-14.6); RBC Distribution Width SD 45.5 fl (35.1-43.9); Red Blood Count 4.34 M/mm3 (4.2-5.4); White Blood Count 12.2 K/mm3 (4.4-11.0)
[2019-07-25 13:54] LABS: International Normalized Ratio 1.3; Prothrombin Time (Protime)PT. 15.8 SECONDS (11.7-14.9)
[2019-07-25 13:55] LABS: Partial Thromboplast Time 33.5 Seconds (24.1-36.2)
[2019-07-25 13:57] LABS: Anion Gap 7 (5-15); BUN 21 mg/dL (7-18); BUN/Creat Ratio 25.5 RATIO (10-20); Chloride 98 mmol/L (98-107); Creatinine, Serum 0.82 mg/dL (0.55-1.02); EST Glomerular Filtration Rate 71 mL/min (>60); Est Glom Filt Rate - Afr Amer 86 mL/min (>60); Estimated Creatinine Clearance 40.48 ml/min; Glucose 82 mg/dL (74-106); Potassium 4.4 mmol/L (3.5-5.1); Sodium Level 134 mmol/L (136-145)
[2019-07-25] MEDS: Morphine 4 MG/ML Syringe IV (13:58)
--- NOTE | 2019-07-25 15:21 | PCM.HP.STD ---
Problem List (1) Fracture of femoral neck, left, closed Status: Acute (2) Persistent atrial fibrillation Status: Chronic (3) Nonrheumatic mitral (valve) insufficiency Status: Chronic (4) Chronic systolic (congestive) heart failure Status: Chronic (5) Pleural effusion Status: Chronic (6) Nonrheumatic mitral (valve) prolapse Status: Chronic (7) Hypothyroidism Status: Chronic (8) Anxiety and depression Status: Chronic (9) Heart murmur Status: Chronic History of Present Illness Date of Admission: 07/25/19 Chief Complaint: Fall with left hip pain. The patient is a 79 year old F who presents to the emergency room due to fall with left hip pain. Patient reports she fell a little over 2 weeks ago on July. She has been ambulating since that time however has had significant left hip pain. Patient reports she recently had cataract surgery on her right eye and had 2 falls following surgery which she contributes to blurred vision. She denies other injury related to fall. She reports she uses a cane to ambulate and lives at home with her . She denies chest pain, shortness of breath or other current symptoms. She has a past medical history of chronic systolic CHF, nonischemic cardiomyopathy, persistent atrial fibrillation, moderately severe mitral insufficiency, hypothyroidism, anxiety, depression. Past Medical History Past Medical History (Chronic Problems): Chronic Problems (Last Reviewed 06/27/19 @ 16:02 by ARCHIE Thomas) Persistent atrial fibrillation (Chronic) Nonrheumatic mitral (valve) insufficiency (Chronic) Chronic systolic (congestive) heart failure (Chronic) Pleural effusion (Chronic) Nonrheumatic mitral (valve) prolapse (Chronic) Hypothyroidism (Chronic) Anxiety and depression (Chronic) Heart murmur (Chronic) Medical History: Medical History (Last Reviewed 06/27/19 @ 16:02 by ARCHIE Thomas) Persistent atrial fibrillation (Chronic) I48.1 Nonrheumatic mitral (valve) insufficiency (Chronic) I34.0 Chronic systolic (congestive) heart failure (Chronic) I50.22 Pleural effusion (Chronic) J90 Nonrheumatic mitral (valve) prolapse (Chronic) I34.1 Hypothyroidism (Chronic) E03.9 Anxiety and depression (Chronic) F41.9, F32.9 Heart murmur (Chronic) R01.1 GERD (gastroesophageal reflux disease) K21.9 History of basal cell carcinoma Z85.828 History of cataract Z86.69 History of hepatitis Z86.19 Hormone replacement therapy Z79.890 IBS (irritable bowel syndrome) K58.9 CAP (community acquired pneumonia) (Resolved) J18.9 History of hysterectomy Z90.710 Hypotension (Resolved) I95.9 Sepsis (Resolved) A41.9 (HFpEF) heart failure with preserved ejection fraction (Ruled-out) I50.30 A-fib (Inactive) I48.91 Allergies gluten Allergy (Intermediate, Verified 07/25/19 13:01) Unknown lactose Allergy (Intermediate, Verified 07/25/19 13:01) unknown Home Medications: Ambulatory Orders Medication Instructions Recorded polyethylene glycol 3350 17 gram 17 g PO DAILY 06/20/18 oral powder packet Digoxin 125 mcg PO DAILY 02/24/19 Multivitamin with Minerals 1 tab PO DAILY 02/24/19 [Multiple Vitamin] Ensure Enlive 120 ml PO 4X/DAY liquid 02/27/19 thyroid (pork) 30 mg tablet 30 mg PO DAILY #90 tab 03/08/19 clonazepam 0.5 mg tablet 0.25 mg PO QHS #30 tab 03/21/19 apixaban 5 mg tablet 5 mg PO BID #60 tab 05/07/19 metoprolol tartrate 50 mg tablet 50 mg PO BID #60 tab 05/07/19 imipramine 50 mg tablet 50 mg PO QHS tab 05/20/19 potassium chloride ER 10 mEq 20 meq PO DAILY #60 tablet.er 05/28/19 tablet,extended release lisinopril 2.5 mg tablet 2.5 mg PO DAILY tab 06/27/19 Acetaminophen [Tylenol] 325 mg PO Q6H PRN PRN 07/25/19 Cholecalciferol (Vitamin D3) 2,000 unit PO DAILY 07/25/19 [Vitamin D3] Cyanocobalamin/Folic Acid [Vitamin 1 tab PO DAILY 07/25/19 J19-Olwdd Acid Tablet] Ibuprofen [Advil] 200 mg PO DAILY PRN PRN 07/25/19 Prochlorperazine Maleate 2.5 mg PO TID PRN PRN 07/25/19 furosemide 20 mg tablet 20 mg PO BID tab 07/25/19 Surgical History: Surgical History (Last Reviewed 06/27/19 @ 16:02 by ARCHIE Thomas) History of cholecystectomy Z90.49 Surgical History: appendectomy, cholecystectomy, - - Cataract surgery, hysterectomy Psychiatric History: Anxiety, Depression [employer] History: No pertinent [employer] history Lives: Spouse/ Significant Other Smoking Status: Never smoker Alcohol: None Drugs: None - *Family History Maternal Family History: Family History (Last Reviewed 07/25/19 @ 15:29 by ROJAS Gonzalez) Grandmother Colon cancer Grandfather Myocardial infarction Mother Heart disease Myocardial infarction Parkinsons Paternal Family History: Family History (Last Reviewed 07/25/19 @ 15:29 by ROJAS Gonzalez) Grandmother Colon cancer Grandfather Myocardial infarction Mother Heart disease Myocardial infarction Parkinsons History Items: - - Denies known paternal medical history including cardiac history. Review of Systems Constitutional: Denies: Chills, Fever, Weight Change HEENT: Denies: Head Aches, Sinus Congestion, Sinus Drainage Cardiovascular: Denies: Chest Pain, Palpitations Respiratory: Denies: Cough, Shortness of breath at rest, Sputum production Gastrointestinal: Denies: Abdominal Pain, Nausea, Vomiting Genitourinary: Denies: Dysuria Musculoskeletal: Reports: - - Left hip and left knee pain. Skin: Denies: Rash, Wounds Neurological: Denies: Numbness, Tingling, Focal weakness Psychiatric: Reports: Anxiety, Depression Hematologic/ Lymphatic: Denies: Easy Bruising, Easy Bleeding VTE Information - Inpt Only VTE Present on Admission: No VTE Mechan Device Prophylaxis: None VTE Pharm Prophylaxis ordered?: Yes Patient Problems: Active and Suspected Problems (Last Reviewed 06/27/19 @ 16:02 by ARCHIE Thomas) Fracture of femoral neck, left, closed (Acute) - Physical Exam Vitals/I&O's: Vital Signs Temp Pulse Resp BP Pulse Ox 97.9 F 95 18 105/66 100 07/25/19 12:56 07/25/19 15:00 07/25/19 15:00 07/25/19 12:56 07/25/19 12:56 Oxygen Delivery Method Room Air Weight: 98 lb 6.4 oz Body Mass Index (BMI) 15.4 General: Alert, Oriented x3, Cooperative HEENT: Atraumatic, PERRLA, EOMI, Normocephalic Neck: Supple, No JVD, Negative Carotid Bruits Lungs: Clear to auscultation, Normal air movement Cardiovascular: Regular rate, Murmur Abdomen: Bowel Sounds Present, Soft, Non Tender, Non-Distended Extremities: No clubbing, No cyanosis, No edema, Capillary Refill Less than 3 Seconds Skin: No rashes, No breakdown, - - Left hip ecchymosis Musculoskeletal: Cachexia, Muscle Wasting, Tenderness - Left hip, left knee Neurological: Cranial nerves II-XII grossly intact, Neuro grossly intact Psych/Mental Status: Normal Affect, Appropriate Laboratory Results 07/25/19 13:30: WBC 12.2 H, RBC 4.34, Hgb 13.9, Hct 43.1, MCV 99.3 H, MCH 32.0, MCHC 32.3, RDW Std Deviation 45.5 H, RDW Coeff of Karis 12.4, Plt Count 334, MPV 9.6, Immature Gran % (Auto) 0.400, Neut % (Auto) 84.0 H, Lymph % (Auto) 9.6 L, [place] % (Auto) 5.2, Eos % (Auto) 0.3, Baso % (Auto) 0.5, Absolute Neuts (auto) 10.2 H, Absolute Lymphs (auto) 1.17, Nucleated RBC % 0 07/25/19 13:30: PT 15.8 H, INR 1.3, APTT 33.5 07/25/19 13:30: Sodium 134 L, Potassium 4.4, Chloride 98, Carbon Dioxide 29.0, Anion Gap 7, BUN 21 H, Creatinine 0.82, Estim Creat Clear Calc 40.48, Est GFR (MDRD) Af Amer 86, Est GFR (MDRD) Non-Af 71, BUN/Creatinine Ratio 25.5 H, Glucose 82, Calcium 9.0 07/25/19 13:30: Blood Type A POSITIVE, Antibody Screen NEGATIVE Assessment/Plan All Active Problems (Last Reviewed 06/27/19 @ 16:02 by ARCHIE Thomas) Fracture of femoral neck, left, closed (Acute) CAP (community acquired pneumonia) (Resolved) Hypotension (Resolved) Sepsis (Resolved) (HFpEF) heart failure with preserved ejection fraction (Ruled-out) 1. Nondisplaced subcapital fracture of the proximal left femur secondary to mechanical fall prior to admission-orthopedic consult placed from ER. Fall precautions. PT/OT. PRN pain regimen. Hold apixaban. 2. Chronic systolic CHF/nonischemic cardiomyopathy-echo February 2018 showed an EF of 45%, moderately severe mitral valve insufficiency, RVSP estimated to be 42 mmHg. Continue home digoxin, Lasix, lisinopril, beta-obie regimen. 3. Persistent atrial fibrillation-hold Eliquis given possible surgery. Continue metoprolol regimen. 4. Moderately severe mitral insufficiency-per echo February 2019. 5. Hypothyroidism-continue home medication regimen. 6. Anxiety/Depression-continue nightly clonazepam regimen, imipramine. 7. Severe protein calorie malnutrition-as evidenced by cachectic appearance, BMI 15. Nutrition consult. DVT prophylaxis- SCDs, hold eliquis. This patient was seen by ROJAS Gonzalez under the supervision of Dr. White.
[2019-07-25] MEDS: 0.9% Normal Saline 1,000 ML 100 ML IV (17:23)
[2019-07-25] MEDS: 0.9% Saline Lock 10 ML Syringe IV (17:30)
[2019-07-25] MEDS: Magnesium Hydroxide 30 ML UDC PO (17:33)
[2019-07-25] MEDS: Acetaminophen 325 MG Tablet 650 MG PO (19:57)
[2019-07-25] MEDS: Metoprolol Tartrate 50 MG Tablet PO (19:58)
[2019-07-25 21:53] LABS: Digoxin Level 0.81 ng/mL (0.80-2.00)
[2019-07-25] MEDS: Imipramine HCl 25 MG Tablet 50 MG PO (21:55)
[2019-07-25] MEDS: clonazePAM 0.5 MG Tablet 0.25 MG PO (21:57)
[2019-07-26] VITALS (7 sets, daily range): BP systolic 111–121; BP diastolic 60–72; PULSE 71–105; RESP 16–18; TEMP 36.7–36.9; O2SAT 95–99
[2019-07-26] MEDS: Acetaminophen 325 MG Tablet 650 MG PO ×3 (03:19→17:46)
--- NOTE | 2019-07-26 05:55 | EKG12_ITS ---
Test Reason : AM EKG Blood Pressure : / mmHG Vent. Rate : 070 BPM Atrial Rate : 416 BPM P-R Int : 000 ms QRS Dur : 084 ms QT Int : 368 ms P-R-T Axes : 000 088 054 degrees QTc Int : 397 ms Atrial fibrillation Abnormal ECG When compared with ECG of 25-JUL-2019 13:25, MANUAL COMPARISON REQUIRED, DATA IS UNCONFIRMED Confirmed by CAROL SCHULER ([id number]), publications editor DANISH SIMPSON ([id number]) on 08/01/2019 11:50:40 AM Referred By: Nicolas Hyatt Confirmed By:CAROL SCHULER
[2019-07-26] MEDS: Thyroid 15 MG Tablet 30 MG PO (06:56)
[2019-07-26 07:13] LABS: Absolute Lymphocyte Count 2.02 X10^3/uL (0.83-4.51); Absolute Neutrophil Count 3.8 X10^3/uL (2.0-7.7); Basophil# 0.05 X10^3/uL; Basophil% 0.7 % (0-1); Eosinophils% 2.9 % (0-5); Hematocrit 39.8 % (37-47); Hemoglobin 12.9 g/dL (12.0-15.0); Lymphocyte # 2.02 X10^3/ul (4.0); Lymphocyte % 29.8 % (19-41); Mean Corp Hgb Conc 32.4 g/dL (32-36); Mean Corpuscular Volume 98.8 fL (81-99); Mean Platelet Vol. 9.5 fl (6.2-12.0); Monocyte# 0.68 X10^3/uL; NRBC Flagged by Analyzer 0 % (0-5); Neutrophil # 3.81 X10^3/uL (2.7-7.7); Neutrophil % 56.3 % (47-70); Platelet Count 306 K/mm3 (150-450); RBC Distribution Width CV 12.5 % (11.6-14.6); Red Blood Count 4.03 M/mm3 (4.2-5.4); White Blood Count 6.8 K/mm3 (4.4-11.0)
[2019-07-26 07:31] LABS: Anion Gap 3 (5-15); BUN 17 mg/dL (7-18); BUN/Creat Ratio 26.1 RATIO (10-20); Calcium,Total 8.4 mg/dL (8.5-10.1); Chloride 101 mmol/L (98-107); Creatinine, Serum 0.65 mg/dL (0.55-1.02); EST Glomerular Filtration Rate 94 mL/min (>60); Est Glom Filt Rate - Afr Amer 113 mL/min (>60); Estimated Creatinine Clearance 32.06 ml/min; Glucose 80 mg/dL (74-106); Potassium 4.4 mmol/L (3.5-5.1); Sodium Level 135 mmol/L (136-145)
[2019-07-26] MEDS: Polyethylene Glycol 3350 17 GM PACKET PO (07:49)
[2019-07-26] MEDS: Multivitamins,Ther W-Minerals Tablet 1 TABLET PO (07:49)
[2019-07-26] MEDS: Lisinopril 2.5 MG Tablet PO (07:49)
[2019-07-26] MEDS: Metoprolol Tartrate 50 MG Tablet PO ×2 (07:51→21:33)
[2019-07-26] MEDS: Digoxin 125 MCG Tablet PO (07:51)
--- NOTE | 2019-07-26 09:43 | PCM.CONS.GEN ---
Reason for Consult Date of Consultation: 07/26/19 Reason for Consultation: Left hip pain History of Present Illness: The patient is a 79 year old F [who is a community ambulator without assistance. She fell at home 2 weeks ago. She presented to the ED yesterday and x-rays revealed an impacted subcapital fracture of her left hip. She was admitted by the hospitalist and at the time of my evaluation she reports little pain about the left hip, She denies N/T/P. She is accompanied in the room by her 2 daughters.] Past Medical History Past Medical History (Chronic Problems): Chronic Problems (Last Reviewed 06/27/19 @ 16:02 by ARCHIE Thomas) Persistent atrial fibrillation (Chronic) Nonrheumatic mitral (valve) insufficiency (Chronic) Chronic systolic (congestive) heart failure (Chronic) Pleural effusion (Chronic) Nonrheumatic mitral (valve) prolapse (Chronic) Hypothyroidism (Chronic) Anxiety and depression (Chronic) Heart murmur (Chronic) Medical History: Medical History (Last Reviewed 06/27/19 @ 16:02 by ARCHIE Thomas) Persistent atrial fibrillation (Chronic) I48.1 Nonrheumatic mitral (valve) insufficiency (Chronic) I34.0 Chronic systolic (congestive) heart failure (Chronic) I50.22 Pleural effusion (Chronic) J90 Nonrheumatic mitral (valve) prolapse (Chronic) I34.1 Hypothyroidism (Chronic) E03.9 Anxiety and depression (Chronic) F41.9, F32.9 Heart murmur (Chronic) R01.1 GERD (gastroesophageal reflux disease) K21.9 History of basal cell carcinoma Z85.828 History of cataract Z86.69 History of hepatitis Z86.19 Hormone replacement therapy Z79.890 IBS (irritable bowel syndrome) K58.9 CAP (community acquired pneumonia) (Resolved) J18.9 History of hysterectomy Z90.710 Hypotension (Resolved) I95.9 Sepsis (Resolved) A41.9 (HFpEF) heart failure with preserved ejection fraction (Ruled-out) I50.30 A-fib (Inactive) I48.91 Allergies No Known Allergies Allergy (Verified 07/25/19 16:29) Home Medications: Ambulatory Orders Medication Instructions Recorded polyethylene glycol 3350 17 gram 17 g PO DAILY 06/20/18 oral powder packet Digoxin 125 mcg PO DAILY 02/24/19 Multivitamin with Minerals 1 tab PO DAILY 02/24/19 [Multiple Vitamin] Ensure Enlive 120 ml PO 4X/DAY liquid 02/27/19 thyroid (pork) 30 mg tablet 30 mg PO DAILY #90 tab 03/08/19 clonazepam 0.5 mg tablet 0.25 mg PO QHS #30 tab 03/21/19 apixaban 5 mg tablet 5 mg PO BID #60 tab 05/07/19 metoprolol tartrate 50 mg tablet 50 mg PO BID #60 tab 05/07/19 imipramine 50 mg tablet 50 mg PO QHS tab 05/20/19 potassium chloride ER 10 mEq 20 meq PO DAILY #60 tablet.er 05/28/19 tablet,extended release lisinopril 2.5 mg tablet 2.5 mg PO DAILY tab 06/27/19 Acetaminophen [Tylenol] 325 mg PO Q6H PRN PRN 07/25/19 Cholecalciferol (Vitamin D3) 2,000 unit PO DAILY 07/25/19 [Vitamin D3] Cyanocobalamin/Folic Acid [Vitamin 1 tab PO DAILY 07/25/19 [id number] Acid Tablet] Ibuprofen [Advil] 200 mg PO DAILY PRN PRN 07/25/19 Prochlorperazine Maleate 2.5 mg PO TID PRN PRN 07/25/19 furosemide 20 mg tablet 20 mg PO BID tab 07/25/19 Surgical History: Surgical History (Last Reviewed 06/27/19 @ 16:02 by ARCHIE Thomas) History of cholecystectomy Z90.49 Surgical History: appendectomy, cholecystectomy, - - Cataract surgery, hysterectomy Psychiatric History: Anxiety, Depression PRESS SETTER History: No pertinent PRESS SETTER history Lives: Spouse/ Significant Other Smoking Status: Never smoker Tobacco Use: Chew Alcohol: None Drugs: None - *Family History Maternal Family History: Family History (Last Reviewed 07/25/19 @ 15:29 by ROJAS Gonzalez) Grandmother Colon cancer Grandfather Myocardial infarction Mother Heart disease Myocardial infarction Parkinsons History Items: No pertinent history Paternal Family History: Family History (Last Reviewed 07/25/19 @ 15:29 by ROJAS Gonzalez) Grandmother Colon cancer Grandfather Myocardial infarction Mother Heart disease Myocardial infarction Parkinsons History Items: - - Denies known paternal medical history including cardiac history. Review of Systems HEENT: Reports: Difficulty Hearing Musculoskeletal: Reports: Joint Pain - left hip -10/13 Patient Problems: Active and Suspected Problems (Last Reviewed 06/27/19 @ 16:02 by ARCHIE Thomas) Fracture of femoral neck, left, closed (Acute) - Physical Exam Vitals/I&O's: Vital Signs Temp Pulse Resp BP Pulse Ox 98.1 F 81 18 121/65 H 95 07/26/19 07:47 07/26/19 07:51 07/26/19 07:47 07/26/19 07:47 07/26/19 07:47 Oxygen Delivery Method Room Air Weight: 95 lb 0.308 oz Body Mass Index (BMI) 14.8 Intake and Output for Last 24 Hours 07/24/19 07/25/19 07/26/19 23:59 23:59 23:59 Intake Total 1420 / 1420 Output Total 1200 / 1200 Balance 220 / 220 General: Alert, Oriented x3, No apparent distress HEENT: Atraumatic Oral: Moist Mucosa Neck: Supple, No JVD Cardiovascular: Regular rate - irregular rhythm Extremities: No clubbing, No cyanosis, No edema, Capillary Refill Less than 3 Seconds, No Calf Tenderness Musculoskeletal: Tenderness - Mild about left groin. Leg lengths equal. No pain with log roll. Neurological: Neuro grossly intact Laboratory Results 07/25/19 13:30: WBC 12.2 H, RBC 4.34, Hgb 13.9, Hct 43.1, MCV 99.3 H, MCH 32.0, MCHC 32.3, RDW Std Deviation 45.5 H, RDW Coeff of Karis 12.4, Plt Count 334, MPV 9.6, Immature Gran % (Auto) 0.400, Neut % (Auto) 84.0 H, Lymph % (Auto) 9.6 L, Drew % (Auto) 5.2, Eos % (Auto) 0.3, Baso % (Auto) 0.5, Absolute Neuts (auto) 10.2 H, Absolute Lymphs (auto) 1.17, Nucleated RBC % 0 07/25/19 13:30: PT 15.8 H, INR 1.3, APTT 33.5 07/25/19 13:30: Sodium 134 L, Potassium 4.4, Chloride 98, Carbon Dioxide 29.0, Anion Gap 7, BUN 21 H, Creatinine 0.82, Estim Creat Clear Calc 40.48, Est GFR (MDRD) Af Amer 86, Est GFR (MDRD) Non-Af 71, BUN/Creatinine Ratio 25.5 H, Glucose 82, Calcium 9.0 07/25/19 13:30: Blood Type A POSITIVE, Antibody Screen NEGATIVE 07/25/19 20:34: Digoxin 0.81 07/26/19 06:48: Sodium 135 L, Potassium 4.4, Chloride 101, Carbon Dioxide 31.0, Anion Gap 3 L, BUN 17, Creatinine 0.65, Estim Creat Clear Calc 32.06, Est GFR (MDRD) Af Amer 113, Est GFR (MDRD) Non-Af 94, BUN/Creatinine Ratio 26.1 H, Glucose 80, Calcium 8.4 L 07/26/19 06:48: WBC 6.8, RBC 4.03 L, Hgb 12.9, Hct 39.8, MCV 98.8, MCH 32.0, MCHC 32.4, RDW Std Deviation 45.0 H, RDW Coeff of Karis 12.5, Plt Count 306, MPV 9.5, Immature Gran % (Auto) 0.300, Neut % (Auto) 56.3, Lymph % (Auto) 29.8, Drew % (Auto) 10.0, Eos % (Auto) 2.9, Baso % (Auto) 0.7, Absolute Neuts (auto) 3.8, Absolute Lymphs (auto) 2.02, Nucleated RBC % 0 Current Medications Acetaminophen (Tylenol) 650 mg PO Q6H PRN PRN PRN Reason: Pain Score 1-3 /Temp>100.7 Last Admin: 07/26/19 03:19 Dose: 650 mg Documented by: [facility]ifer[facility] ([facility]itamin [facility]) [facility] Last Admin: 07/26/19 07:48 Dose: 2,000 unit Documented by: Clonazepam (Klonopin) 0.25 mg PO QHS [facility] Last Admin: 07/25/19 21:57 Dose: 0.25 mg Documented by: Digoxin (Lanoxin) 125 mcg PO DAILY [facility] Last Admin: 07/26/19 07:51 Dose: 125 mcg Documented by: Docusate Sodium (Colace) 200 mg PO BID PRN PRN PRN Reason: Constipation Imipramine HCl (Tofranil) 50 mg PO QHS [facility] Last Admin: 07/25/19 21:55 Dose: 50 mg Documented by: Lisinopril (Zestril) 2.5 mg PO DAILY [facility] Last Admin: 07/26/19 07:49 Dose: 2.5 mg Documented by: Magnesium Hydroxide (Milk Of Magnesia) 30 ml PO DAILY PRN PRN PRN Reason: Constipation Metoprolol Tartrate (Lopressor (Beta Steve)) 50 mg PO BID [facility] Last Admin: 07/26/19 07:51 Dose: 50 mg Documented by: Morphine Sulfate () 1 - 2 mg IV Q4H PRN PRN PRN Reason: Pain Score 4-10/10 Multivitamins/Minerals (Multivitamin With Minerals) 1 tablet PO DAILY@0800 [facility] Last Admin: 07/26/19 07:49 Dose: 1 tablet Documented by: Nutritional Formula (Lactose Free) (Ensure Enlive) 120 ml PO 4X/DAY [facility] Last Admin: 07/26/19 07:49 Dose: Not Given Documented by: Ondansetron HCl (Zofran) 4 mg IV Q8H PRN PRN PRN Reason: Nausea Oxycodone HCl (Oxyir) 5 mg PO Q4H PRN PRN PRN Reason: Pain Score 4-10/10 Polyethylene Glycol (Miralax) 17 gm PO DAILY [facility] Last Admin: 07/26/19 07:49 Dose: 17 gm Documented by: Sodium Chloride () 10 - 40 ml IV UD PRN PRN Reason: SALINE FLUSH Last Admin: 07/25/19 17:30 Dose: 10 ml Documented by: Thyroid ([place] Thyroid) 30 mg PO DAILY@0600 [facility] Last Admin: 07/26/19 06:56 Dose: 30 mg Documented by: Assessment/Plan All Active Problems (Last Reviewed 06/27/19 @ 16:02 by ARCHIE Thomas) Fracture of femoral neck, left, closed (Acute) CAP (community acquired pneumonia) (Resolved) Hypotension (Resolved) Sepsis (Resolved) (HFpEF) heart failure with preserved ejection fraction (Ruled-out) Impacted subcapital fracture left hip Discussed at length with patient and her family operative versus non-operative treatment. At this time will treat non-operatively. Will get follow up xrays in 7-10 days. My need a hemiarthroplasty if fracture displaces or if pain worsens. OK to resume Eliquis. Will have PT see her today for walker ambulation with TDWB.
--- NOTE | 2019-07-26 10:27 | NURSING ---
Family out to nurses' station requesting caseworker intake to come in when able. This RN called GERARDO Meza and notified of same.
--- NOTE | 2019-07-26 10:32 | PN_ITS ---
<Funmi Gu - Last Filed: 07/26/19 10:47> Patient Problems: Active and Suspected Problems (Last Reviewed 06/27/19 @ 16:02 by ARCHIE Thomas) Fracture of femoral neck, left, closed (Acute) Subjective: Patient seen and examined. Continues to have left hip pain, worse with sitting up in bed and movement. Reports she slept well overnight. Per orthopedic notes, patient and family have elected for nonoperative treatment at this time. Will await PT evaluation for further discharge planning. - Physical Exam Vitals/I&O's: Vital Signs Temp Pulse Resp BP Pulse Ox 98.1 F 81 18 121/65 H 95 07/26/19 07:47 07/26/19 07:51 07/26/19 07:47 07/26/19 07:47 07/26/19 07:47 Oxygen Delivery Method Room Air Weight: 95 lb 0.308 oz Body Mass Index (BMI) 14.8 Intake and Output for Last 24 Hours 07/24/19 07/25/19 07/26/19 23:59 23:59 23:59 Intake Total 1420 / 1420 Output Total 1200 / 1200 Balance 220 / 220 General: Alert, Oriented x3, Cooperative HEENT: Atraumatic, PERRLA, EOMI, Normocephalic Neck: Supple, No JVD, Negative Carotid Bruits Lungs: Clear to auscultation, Normal air movement Cardiovascular: Murmur, - - Atrial fibrillation, rate controlled Abdomen: Bowel Sounds Present, Soft, Non Tender, Non-Distended Extremities: No clubbing, No cyanosis, No edema, Capillary Refill Less than 3 Seconds Skin: No rashes, No breakdown, - - Left hip ecchymosis Musculoskeletal: No Tenderness to Palpation of Joints or Extremities, Cachexia, Muscle Wasting, Tenderness - Left hip Neurological: Cranial nerves II-XII grossly intact, Neuro grossly intact Psych/Mental Status: Normal Affect, Appropriate Laboratory Results 07/25/19 13:30: WBC 12.2 H, RBC 4.34, Hgb 13.9, Hct 43.1, MCV 99.3 H, MCH 32.0, MCHC 32.3, RDW Std Deviation 45.5 H, RDW Coeff of Karis 12.4, Plt Count 334, MPV 9.6, Immature Gran % (Auto) 0.400, Neut % (Auto) 84.0 H, Lymph % (Auto) 9.6 L, [place] % (Auto) 5.2, Eos % (Auto) 0.3, Baso % (Auto) 0.5, Absolute Neuts (auto) 10.2 H, Absolute Lymphs (auto) 1.17, Nucleated RBC % 0 07/25/19 13:30: PT 15.8 H, INR 1.3, APTT 33.5 07/25/19 13:30: Sodium 134 L, Potassium 4.4, Chloride 98, Carbon Dioxide 29.0, Anion Gap 7, BUN 21 H, Creatinine 0.82, Estim Creat Clear Calc 40.48, Est GFR (MDRD) Af Amer 86, Est GFR (MDRD) Non-Af 71, BUN/Creatinine Ratio 25.5 H, Glucose 82, Calcium 9.0 07/25/19 13:30: Blood Type A POSITIVE, Antibody Screen NEGATIVE 07/25/19 20:34: Digoxin 0.81 07/26/19 06:48: Sodium 135 L, Potassium 4.4, Chloride 101, Carbon Dioxide 31.0, Anion Gap 3 L, BUN 17, Creatinine 0.65, Estim Creat Clear Calc 32.06, Est GFR (MDRD) Af Amer 113, Est GFR (MDRD) Non-Af 94, BUN/Creatinine Ratio 26.1 H, Glucose 80, Calcium 8.4 L 07/26/19 06:48: WBC 6.8, RBC 4.03 L, Hgb 12.9, Hct 39.8, MCV 98.8, MCH 32.0, MCHC 32.4, RDW Std Deviation 45.0 H, RDW Coeff of Karis 12.5, Plt Count 306, MPV 9.5, Immature Gran % (Auto) 0.300, Neut % (Auto) 56.3, Lymph % (Auto) 29.8, [place] % (Auto) 10.0, Eos % (Auto) 2.9, Baso % (Auto) 0.7, Absolute Neuts (auto) 3.8, Absolute Lymphs (auto) 2.02, Nucleated RBC % 0 Current Medications Acetaminophen (Tylenol) 650 mg PO Q6H PRN PRN PRN Reason: Pain Score 1-3 /Temp>100.7 Last Admin: 07/26/19 10:07 Dose: 650 mg Documented by: Cholecalciferol (Vitamin D) 2,000 unit PO DAILYCM [facility] Last Admin: 07/26/19 07:48 Dose: 2,000 unit Documented by: Clonazepam (Klonopin) 0.25 mg PO QHS [facility] Last Admin: 07/25/19 21:57 Dose: 0.25 mg Documented by: Digoxin (Lanoxin) 125 mcg PO DAILY [facility] Last Admin: 07/26/19 07:51 Dose: 125 mcg Documented by: Docusate Sodium (Colace) 200 mg PO BID PRN PRN PRN Reason: Constipation Imipramine HCl (Tofranil) 50 mg PO QHS [facility] Last Admin: 07/25/19 21:55 Dose: 50 mg Documented by: Lisinopril (Zestril) 2.5 mg PO DAILY [facility] Last Admin: 07/26/19 07:49 Dose: 2.5 mg Documented by: Magnesium Hydroxide (Milk Of Magnesia) 30 ml PO DAILY PRN PRN PRN Reason: Constipation Metoprolol Tartrate (Lopressor (Beta Steve)) 50 mg PO BID [facility] Last Admin: 07/26/19 07:51 Dose: 50 mg Documented by: Morphine Sulfate () 1 - 2 mg IV Q4H PRN PRN PRN Reason: Pain Score 4-10/10 Multivitamins/Minerals (Multivitamin With Minerals) 1 tablet PO DAILY@0800 [facility] Last Admin: 07/26/19 07:49 Dose: 1 tablet Documented by: Nutritional Formula (Lactose Free) (Ensure Enlive) 120 ml PO 4X/DAY [facility] Last Admin: 07/26/19 07:49 Dose: Not Given Documented by: Ondansetron HCl (Zofran) 4 mg IV Q8H PRN PRN PRN Reason: Nausea Oxycodone HCl (Oxyir) 5 mg PO Q4H PRN PRN PRN Reason: Pain Score 4-10/10 Polyethylene Glycol (Miralax) 17 gm PO DAILY [facility] Last Admin: 07/26/19 07:49 Dose: 17 gm Documented by: Sodium Chloride () 10 - 40 ml IV UD PRN PRN Reason: SALINE FLUSH Last Admin: 07/25/19 17:30 Dose: 10 ml Documented by: Thyroid ([place] Thyroid) 30 mg PO DAILY@0600 [facility] Last Admin: 07/26/19 06:56 Dose: 30 mg Documented by: Medical Necessity - Tobacco Use Smoking Status: Never smoker Tobacco Use: Chew Assessment/Plan All Active Problems (Last Reviewed 06/27/19 @ 16:02 by ARCHIE Thomas) Fracture of femoral neck, left, closed (Acute) CAP (community acquired pneumonia) (Resolved) Hypotension (Resolved) Sepsis (Resolved) (HFpEF) heart failure with preserved ejection fraction (Ruled-out) 1. Nondisplaced subcapital fracture of the proximal left femur secondary to mechanical fall prior to admission-Dr. Carnes following. Fall precautions. PT/OT. PRN pain regimen. Patient and family have elected for nonsurgical management at this time. Patient will have follow-up x-rays in 7 to 10 days. PT eval pending for further discharge planning. 2. Chronic systolic CHF/nonischemic cardiomyopathy-echo February 2018 showed an EF of 45%, moderately severe mitral valve insufficiency, RVSP estimated to be 42 mmHg. Continue home digoxin, Lasix, lisinopril, beta-steve regimen. Lasix held on admission due to mild dehydration. We will plan to resume tomorrow. 3. Persistent atrial fibrillation-continue metoprolol, digoxin, Eliquis regimen. 4. Moderately severe mitral insufficiency-per echo February 2019. 5. Hypothyroidism-continue home medication regimen. 6. Anxiety/Depression-continue nightly clonazepam regimen, imipramine. 7. Severe protein calorie malnutrition-as evidenced by cachectic appearance, BMI 15. Nutrition consult. DVT prophylaxis-Eliquis This patient was seen by ROJAS Gonzalez under the supervision of Dr. Vasquez. <Arline Vasquez - Last Filed: 07/26/19 13:40> - Physical Exam Vitals/I&O's: Vital Signs Temp Pulse Resp BP Pulse Ox 98.1 F 81 18 121/65 H 95 07/26/19 07:47 07/26/19 07:51 07/26/19 07:47 07/26/19 07:47 07/26/19 07:47 Oxygen Delivery Method Room Air Weight: 95 lb 0.308 oz Body Mass Index (BMI) 14.8 Intake and Output for Last 24 Hours 07/24/19 07/25/19 07/26/19 23:59 23:59 23:59 Intake Total 1660 / 1660 Output Total 1350 / 1350 Balance 310 / 310 Laboratory Results 07/25/19 13:30: WBC 12.2 H, RBC 4.34, Hgb 13.9, Hct 43.1, MCV 99.3 H, MCH 32.0, MCHC 32.3, RDW Std Deviation 45.5 H, RDW Coeff of Karis 12.4, Plt Count 334, MPV 9.6, Immature Gran % (Auto) 0.400, Neut % (Auto) 84.0 H, Lymph % (Auto) 9.6 L, [place] % (Auto) 5.2, Eos % (Auto) 0.3, Baso % (Auto) 0.5, Absolute Neuts (auto) 10.2 H, Absolute Lymphs (auto) 1.17, Nucleated RBC % 0 07/25/19 13:30: PT 15.8 H, INR 1.3, APTT 33.5 07/25/19 13:30: Sodium 134 L, Potassium 4.4, Chloride 98, Carbon Dioxide 29.0, Anion Gap 7, BUN 21 H, Creatinine 0.82, Estim Creat Clear Calc 40.48, Est GFR (MDRD) Af Amer 86, Est GFR (MDRD) Non-Af 71, BUN/Creatinine Ratio 25.5 H, Glucose 82, Calcium 9.0 07/25/19 13:30: Blood Type A POSITIVE, Antibody Screen NEGATIVE 07/25/19 20:34: Digoxin 0.81 07/26/19 06:48: Sodium 135 L, Potassium 4.4, Chloride 101, Carbon Dioxide 31.0, Anion Gap 3 L, BUN 17, Creatinine 0.65, Estim Creat Clear Calc 32.06, Est GFR (MDRD) Af Amer 113, Est GFR (MDRD) Non-Af 94, BUN/Creatinine Ratio 26.1 H, Glucose 80, Calcium 8.4 L 07/26/19 06:48: WBC 6.8, RBC 4.03 L, Hgb 12.9, Hct 39.8, MCV 98.8, MCH 32.0, MCHC 32.4, RDW Std Deviation 45.0 H, RDW Coeff of Karis 12.5, Plt Count 306, MPV 9.5, Immature Gran % (Auto) 0.300, Neut % (Auto) 56.3, Lymph % (Auto) 29.8, [place] % (Auto) 10.0, Eos % (Auto) 2.9, Baso % (Auto) 0.7, Absolute Neuts (auto) 3.8, Absolute Lymphs (auto) 2.02, Nucleated RBC % 0 Current Medications Acetaminophen (Tylenol) 650 mg PO Q6H PRN PRN PRN Reason: Pain Score 1-3 /Temp>100.7 Last Admin: 07/26/19 10:07 Dose: 650 mg Documented by: Apixaban (Eliquis) 5 mg PO BID [facility] Cholecalciferol (Vitamin D) [facility] Last Admin: 07/26/19 07:48 Dose: 2,000 unit Documented by: Clonazepam (Klonopin) 0.25 mg PO QHS [facility] Last Admin: 07/25/19 21:57 Dose: 0.25 mg Documented by: Digoxin (Lanoxin) 125 mcg PO DAILY [facility] Last Admin: 07/26/19 07:51 Dose: 125 mcg Documented by: Docusate Sodium (Colace) 200 mg PO BID PRN PRN PRN Reason: Constipation Imipramine HCl (Tofranil) 50 mg PO QHS [facility] Last Admin: 07/25/19 21:55 Dose: 50 mg Documented by: Lisinopril (Zestril) 2.5 mg PO DAILY [facility] Last Admin: 07/26/19 07:49 Dose: 2.5 mg Documented by: Magnesium Hydroxide (Milk Of Magnesia) 30 ml PO DAILY PRN PRN PRN Reason: Constipation Metoprolol Tartrate (Lopressor (Beta Steve)) 50 mg PO BID [facility] Last Admin: 07/26/19 07:51 Dose: 50 mg Documented by: Morphine Sulfate () 1 - 2 mg IV Q4H PRN PRN PRN Reason: Pain Score 4-10/10 Multivitamins/Minerals (Multivitamin With Minerals) 1 tablet PO DAILY@0800 [facility] Last Admin: 07/26/19 07:49 Dose: 1 tablet Documented by: Nutritional Formula (Lactose Free) (Ensure Enlive) 120 ml PO 4X/DAY [facility] Last Admin: 07/26/19 07:49 Dose: Not Given Documented by: Ondansetron HCl (Zofran) 4 mg IV Q8H PRN PRN PRN Reason: Nausea Oxycodone HCl (Oxyir) 5 mg PO Q4H PRN PRN PRN Reason: Pain Score 4-10/10 Polyethylene Glycol (Miralax) 17 gm PO DAILY [facility] Last Admin: 07/26/19 07:49 Dose: 17 gm Documented by: Sodium Chloride () 10 - 40 ml IV UD PRN PRN Reason: SALINE FLUSH Last Admin: 07/25/19 17:30 Dose: 10 ml Documented by: Thyroid ([place] Thyroid) 30 mg PO DAILY@0600 [facility] Last Admin: 07/26/19 06:56 Dose: 30 mg Documented by: Assessment/Plan Patient seen by Funmi Brooks under my supervision Patient is a 79-year-old female admitted with complaint of left hip pain after she sustained a fall. Patient states she had cataract surgery a few weeks ago and has fallen twice since then and thought was due to blurred vision. Imaging done in the ED showed nondisplaced subcapital fracture of the proximal left femur and orthopedic consult was placed. PT OT is on board. Patient seen and examined. Pain is well controlled. She denies any lightheadedness or dizziness, palpitations, chest pain, abdominal pain, diarrhea or vomiting. Review of systems otherwise negative. o/e: Vital Signs Height 5 ft 7 in Weight: 95 lb 0.308 oz Weight in Pounds 95.0 lbs Pulse Ox 95 Temperature 98.1 F Pulse Rate 81 Respiratory Rate 18 Blood Pressure [BP] 123/72 Blood Pressure 121/65 Blood Pressure Position [BP] Semi-Fowlers Blood Pressure Position Semi-Fowlers General: Alert, Oriented x3, Cooperative HEENT: Atraumatic, PERRLA, EOMI, Normocephalic Neck: Supple, No JVD, Negative Carotid Bruits Lungs: Clear to auscultation, Normal air movement Cardiovascular: Murmur, - - Atrial fibrillation, rate controlled Abdomen: Bowel Sounds Present, Soft, Non Tender, Non-Distended Extremities: No clubbing, No cyanosis, No edema, Capillary Refill Less than 3 S econds Skin: No rashes, No breakdown, - - Left hip ecchymosis, Musculoskeletal: No Tenderness to Palpation of Joints or Extremities, Cachexia, Muscle Wasting, LLE mildly shortened, no external rotation Neurological: Cranial nerves II-XII grossly intact, Neuro grossly intact Psych/Mental Status: Normal Affect, Appropriate Plan is for conservative management of hip fracture. Only decided this after discussion with orthopedic surgery. PT OT consulted. Current pain management. Disposition to be determined after physical therapy evaluated. To get follow- up x-rays in 7 to 10 days. Patient was counseled by orthopedic surgery that she may need a hemiarthroplasty fracture displaces or if pain worsens. Will resume Eliquis for A. fib. Rest of management as per ROJAS Gonzalez's notes are reviewed and endorsed. Code Visit Inpatient E&M: 22180 Subs Hosp L2
--- NOTE | 2019-07-26 13:02 | CASEMGMT ---
Social Work Consult: Placement Informant: SHEYLA Meza CM Met with patient and patient daughter, Ofelia and [id number], Leia. Patient lives at home with spouse and has 6 steps to enter the home. Patient prior level of functioning was independent. Patient does not have any DME but Leia is stating to have needed DME for patient when it is time to transition to home. Therapy recommending for patient to have continued therapy through Inpatient Rehab and believes that patient would be able to tolerate 3 hours of therapy a day. Patient interested in the Inpatient Rehab Unit at [facility] as first choice and the TCU unit as second choice. Patient provided with options for other facilities, as well if needed. Patient and family educated that will put patient name on list on Rehab and that social work will follow up with patient/patient family on Sunday. Patient requesting for social work to contact Leia, on Sunday to update as well. Will continue to follow. SUDHAKAR Pineda
[2019-07-26] MEDS: Imipramine HCl 25 MG Tablet 50 MG PO (21:31)
[2019-07-26] MEDS: APIXABAN 5 MG TABLET PO (21:31)
[2019-07-26] MEDS: clonazePAM 0.5 MG Tablet 0.25 MG PO (21:32)
[2019-07-26] MEDS: oxyCODONE 5 MG Tablet PO (21:34)
[2019-07-27] VITALS (7 sets, daily range): BP systolic 94–110; BP diastolic 52–75; PULSE 78–98; RESP 14–18; TEMP 36.4–36.8; O2SAT 94–100
[2019-07-27] MEDS: Thyroid 15 MG Tablet 30 MG PO (05:34)
[2019-07-27] MEDS: oxyCODONE 5 MG Tablet PO ×2 (07:54→12:21)
[2019-07-27] MEDS: Multivitamins,Ther W-Minerals Tablet 1 TABLET PO (07:55)
[2019-07-27] MEDS: Lisinopril 2.5 MG Tablet PO (07:55)
[2019-07-27] MEDS: Metoprolol Tartrate 50 MG Tablet PO ×2 (07:55→21:50)
[2019-07-27] MEDS: Digoxin 125 MCG Tablet PO (07:56)
[2019-07-27] MEDS: Polyethylene Glycol 3350 17 GM PACKET PO (07:57)
[2019-07-27] MEDS: APIXABAN 5 MG TABLET PO ×2 (07:57→21:50)
--- NOTE | 2019-07-27 09:03 | PN_ITS ---
<Funmi Gu - Last Filed: 07/27/19 09:21> Patient Problems: Active and Suspected Problems (Last Reviewed 06/27/19 @ 16:02 by ARCHIE Thomas) Fracture of femoral neck, left, closed (Acute) Subjective: Patient seen and examined. Pain well controlled at this time. Plan for rehab versus TCU at discharge. - Physical Exam Vitals/I&O's: Vital Signs Temp Pulse Resp BP Pulse Ox 98.1 F 95 18 94/64 100 07/27/19 07:59 07/27/19 07:59 07/27/19 07:59 07/27/19 07:59 07/27/19 07:59 Oxygen Delivery Method Room Air Weight: 95 lb 0.308 oz Body Mass Index (BMI) 14.8 Intake and Output for Last 24 Hours 07/25/19 07/26/19 07/27/19 23:59 23:59 23:59 Intake Total 2060 / 2560 900 / 900 Output Total 1750 / 1950 200 / 200 Balance 310 / 610 700 / 700 General: Alert, Oriented x3, Cooperative HEENT: Atraumatic, PERRLA, EOMI, Normocephalic Neck: Supple, No JVD, Negative Carotid Bruits Lungs: Clear to auscultation, Normal air movement Cardiovascular: Murmur, - - Atrial fibrillation, rate controlled Abdomen: Bowel Sounds Present, Soft, Non Tender, Non-Distended Extremities: No clubbing, No cyanosis, No edema, Capillary Refill Less than 3 Seconds Skin: No rashes, No breakdown Musculoskeletal: Cachexia, Muscle Wasting, Tenderness - Left hip Neurological: Cranial nerves II-XII grossly intact, Neuro grossly intact Psych/Mental Status: Normal Affect, Appropriate Current Medications Acetaminophen (Tylenol) 650 mg PO Q6H PRN PRN PRN Reason: Pain Score 1-3 /Temp>100.7 Last Admin: 07/26/19 17:46 Dose: 650 mg Documented by: Apixaban (Eliquis) 5 mg PO BID [facility] Last Admin: 07/27/19 07:57 Dose: 5 mg Documented by: Cholecalciferol (Vitamin D) 2,000 unit PO DAILYCM [facility] Last Admin: 07/27/19 07:55 Dose: 2,000 unit Documented by: Clonazepam (Klonopin) 0.25 mg PO QHS [facility] Last Admin: 07/26/19 21:32 Dose: 0.25 mg Documented by: Digoxin (Lanoxin) 125 mcg PO DAILY [facility] Last Admin: 07/27/19 07:56 Dose: 125 mcg Documented by: Docusate Sodium (Colace) 200 mg PO BID PRN PRN PRN Reason: Constipation Imipramine HCl (Tofranil) 50 mg PO QHS [facility] Last Admin: 07/26/19 21:31 Dose: 50 mg Documented by: Lisinopril (Zestril) 2.5 mg PO DAILY [facility] Last Admin: 07/27/19 07:55 Dose: 2.5 mg Documented by: Magnesium Hydroxide (Milk Of Magnesia) 30 ml PO DAILY PRN PRN PRN Reason: Constipation Metoprolol Tartrate (Lopressor (Beta Steve)) 50 mg PO BID [facility] Last Admin: 07/27/19 07:55 Dose: 50 mg Documented by: Morphine Sulfate () 1 - 2 mg IV Q4H PRN PRN PRN Reason: Pain Score 4-10/10 Multivitamins/Minerals (Multivitamin With Minerals) 1 tablet PO DAILY@0800 [facility] Last Admin: 07/27/19 07:55 Dose: 1 tablet Documented by: Nutritional Formula (Lactose Free) (Ensure Enlive) 120 ml PO 4X/DAY [facility] Last Admin: 07/27/19 07:54 Dose: 120 ml Documented by: Ondansetron HCl (Zofran) 4 mg IV Q8H PRN PRN PRN Reason: Nausea Oxycodone HCl (Oxyir) 5 mg PO Q4H PRN PRN PRN Reason: Pain Score 4-10/10 Last Admin: 07/27/19 07:54 Dose: 5 mg Documented by: Polyethylene Glycol (Miralax) 17 gm PO DAILY [facility] Last Admin: 07/27/19 07:57 Dose: 17 gm Documented by: Sodium Chloride () 10 - 40 ml IV UD PRN PRN Reason: SALINE FLUSH Last Admin: 07/25/19 17:30 Dose: 10 ml Documented by: Thyroid ([place] Thyroid) 30 mg PO DAILY@0600 [facility] Last Admin: 07/27/19 05:34 Dose: 30 mg Documented by: Medical Necessity - Tobacco Use Smoking Status: Never smoker Tobacco Use: Chew Assessment/Plan All Active Problems (Last Reviewed 06/27/19 @ 16:02 by ARCHIE Thomas) Fracture of femoral neck, left, closed (Acute) CAP (community acquired pneumonia) (Resolved) Hypotension (Resolved) Sepsis (Resolved) (HFpEF) heart failure with preserved ejection fraction (Ruled-out) 1. Nondisplaced subcapital fracture of the proximal left femur secondary to mechanical fall prior to admission-Dr. Carnes following. Fall precautions. PT/OT. PRN pain regimen. Patient and family have elected for nonsurgical management at this time. Patient will have follow-up x-rays in 7 to 10 days. Plan for rehab versus TCU. Social work/case management following. 2. Chronic systolic CHF/nonischemic cardiomyopathy-echo February 2018 showed an EF of 45%, moderately severe mitral valve insufficiency, RVSP estimated to be 42 mmHg. Continue home digoxin, Lasix, lisinopril, beta-steve regimen. Lasix held on admission due to mild dehydration. 3. Persistent atrial fibrillation-continue metoprolol, digoxin, Eliquis regimen. 4. Moderately severe mitral insufficiency-per echo February 2019. 5. Hypothyroidism-continue home medication regimen. 6. Anxiety/Depression-continue nightly clonazepam regimen, imipramine. 7. Severe protein calorie malnutrition-as evidenced by cachectic appearance, BMI 15. Nutrition consult. DVT prophylaxis-Kathrinqurufino This patient was seen by ROJAS Gonzalez under the supervision of Dr. Vasquez. <Arline Vasquez - Last Filed: 07/27/19 12:39> - Physical Exam Vitals/I&O's: Vital Signs Temp Pulse Resp BP Pulse Ox 98.1 F 95 18 94/64 100 07/27/19 07:59 07/27/19 07:59 07/27/19 07:59 07/27/19 07:59 07/27/19 07:59 Oxygen Delivery Method Room Air Weight: 95 lb 0.308 oz Body Mass Index (BMI) 14.8 Intake and Output for Last 24 Hours 07/25/19 07/26/19 07/27/19 23:59 23:59 23:59 Intake Total 2060 / 2560 1400 / 1400 Output Total 1750 / 1950 200 / 200 Balance 310 / 610 1200 / 1200 Current Medications Acetaminophen (Tylenol) 650 mg PO Q6H PRN PRN PRN Reason: Pain Score 1-3 /Temp>100.7 Last Admin: 07/26/19 17:46 Dose: 650 mg Documented by: Apixaban (Eliquis) 5 mg PO BID [facility] Last Admin: 07/27/19 07:57 Dose: 5 mg Documented by: Cholecalciferol (Vitamin D) 2,000 unit PO DAILYCM [facility] Last Admin: 07/27/19 07:55 Dose: 2,000 unit Documented by: Clonazepam (Klonopin) 0.25 mg PO QHS [facility] Last Admin: 07/26/19 21:32 Dose: 0.25 mg Documented by: Digoxin (Lanoxin) 125 mcg PO DAILY [facility] Last Admin: 07/27/19 07:56 Dose: 125 mcg Documented by: Docusate Sodium (Colace) 200 mg PO BID PRN PRN PRN Reason: Constipation Imipramine HCl (Tofranil) 50 mg PO QHS [facility] Last Admin: 07/26/19 21:31 Dose: 50 mg Documented by: Lisinopril (Zestril) 2.5 mg PO DAILY [facility] Last Admin: 07/27/19 07:55 Dose: 2.5 mg Documented by: Magnesium Hydroxide (Milk Of Magnesia) 30 ml PO DAILY PRN PRN PRN Reason: Constipation Metoprolol Tartrate (Lopressor (Beta Steve)) 50 mg PO BID [facility] Last Admin: 07/27/19 07:55 Dose: 50 mg Documented by: Morphine Sulfate () 1 - 2 mg IV Q4H PRN PRN PRN Reason: Pain Score 4-10/10 Multivitamins/Minerals (Multivitamin With Minerals) 1 tablet PO DAILY@0800 [facility] Last Admin: 07/27/19 07:55 Dose: 1 tablet Documented by: Nutritional Formula (Lactose Free) (Ensure Enlive) 120 ml PO 4X/DAY [facility] Last Admin: 07/27/19 07:54 Dose: 120 ml Documented by: Ondansetron HCl (Zofran) 4 mg IV Q8H PRN PRN PRN Reason: Nausea Oxycodone HCl (Oxyir) 5 mg PO Q4H PRN PRN PRN Reason: Pain Score 4-10/10 Last Admin: 07/27/19 07:54 Dose: 5 mg Documented by: Polyethylene Glycol (Miralax) 17 gm PO DAILY [facility] Last Admin: 07/27/19 07:57 Dose: 17 gm Documented by: Sodium Chloride () 10 - 40 ml IV UD PRN PRN Reason: SALINE FLUSH Last Admin: 07/25/19 17:30 Dose: 10 ml Documented by: Thyroid ([place] Thyroid) 30 mg PO DAILY@0600 [facility] Last Admin: 07/27/19 05:34 Dose: 30 mg Documented by: Assessment/Plan Patient seen by Funmi Brooks under my supervision Patient seen and examined. She was working with PT at time of review, and tolerating it well. She has opted for conservative management of the proximal eft femoral nondisplaced subcapital fracture. Pain is well controlled. Review of systems is otherwise negative. o/e: Vital Signs Height 5 ft 7 in Weight: 95 lb 0.308 oz Weight in Pounds 95.0 lbs Pulse Ox 95 Temperature 98.1 F Pulse Rate 81 Respiratory Rate 18 Blood Pressure [BP] 123/72 Blood Pressure 121/65 Blood Pressure Position [BP] Semi-Fowlers Blood Pressure Position Semi-Fowlers General: Alert, Oriented x3, Cooperative HEENT: Atraumatic, PERRLA, EOMI, Normocephalic Neck: Supple, No JVD, Negative Carotid Bruits Lungs: Clear to auscultation, Normal air movement Cardiovascular: Murmur, - - Atrial fibrillation, rate controlled Abdomen: Bowel Sounds Present, Soft, Non Tender, Non-Distended Extremities: No clubbing, No cyanosis, No edema, Capillary Refill Less than 3 Seconds Skin: No rashes, No breakdown, - - Left hip ecchymosis, Musculoskeletal: No Tenderness to Palpation of Joints or Extremities, Cachexia, Muscle Wasting, LLE mildly shortened, no external rotation Neurological: Cranial nerves II-XII grossly intact, Neuro grossly intact Psych/Mental Status: Normal Affect, Appropriate Plan is for conservative management of hip fracture. PT/OT on board. Patient awaiting placement in inpatient rehab. On eliquis for atrial fibrillation. for repeat xrays in 7 to 10 days or sooner if she becomes more symptomatic. To ambulate with walker, protected weightbearing of the affected left lower extremity. Rest of management as per ROJAS Gonzalez's notes are reviewed and endorsed. Code Visit Inpatient E&M: 76046 Subs Hosp L2
--- NOTE | 2019-07-27 10:41 | PN.ORTHO_ITS ---
Patient Problems: Active and Suspected Problems (Last Reviewed 06/27/19 @ 16:02 by ARCHIE Thomas) Fracture of femoral neck, left, closed (Acute) Subjective: Patient doing well this morning. Complains of minimal hip pain. Walked with walker without difficulty - Physical Exam Vitals/I&O's: Vital Signs Temp Pulse Resp BP Pulse Ox 98.1 F 95 18 94/64 100 07/27/19 07:59 07/27/19 07:59 07/27/19 07:59 07/27/19 07:59 07/27/19 07:59 Oxygen Delivery Method Room Air Weight: 95 lb 0.308 oz Body Mass Index (BMI) 14.8 Intake and Output for Last 24 Hours 07/25/19 07/26/19 07/27/19 23:59 23:59 23:59 Intake Total 2060 / 2560 900 / 900 Output Total 1750 / 1950 200 / 200 Balance 310 / 610 700 / 700 General: Alert, Oriented x3, No apparent distress Extremities: No clubbing, No cyanosis, No edema, Capillary Refill Less than 3 Seconds Musculoskeletal: Tenderness - With palpation of left groin, but negative log roll Neurological: Neuro grossly intact Current Medications Acetaminophen (Tylenol) 650 mg PO Q6H PRN PRN PRN Reason: Pain Score 1-3 /Temp>100.7 Last Admin: 07/26/19 17:46 Dose: 650 mg Documented by: Apixaban (Eliquis) 5 mg PO BID [facility] Last Admin: 07/27/19 07:57 Dose: 5 mg Documented by: [facility] Last Admin: 07/27/19 07:55 Dose: 2,000 unit Documented by: Clonazepam (Klonopin) 0.25 mg PO QHS [facility] Last Admin: 07/26/19 21:32 Dose: 0.25 mg Documented by: Digoxin (Lanoxin) 125 mcg PO DAILY [facility] Last Admin: 07/27/19 07:56 Dose: 125 mcg Documented by: Docusate Sodium (Colace) 200 mg PO BID PRN PRN PRN Reason: Constipation Imipramine HCl (Tofranil) 50 mg PO QHS [facility] Last Admin: 07/26/19 21:31 Dose: 50 mg Documented by: Lisinopril (Zestril) 2.5 mg PO DAILY [facility] Last Admin: 07/27/19 07:55 Dose: 2.5 mg Documented by: Magnesium Hydroxide (Milk Of Magnesia) 30 ml PO DAILY PRN PRN PRN Reason: Constipation Metoprolol Tartrate (Lopressor (Beta Steve)) 50 mg PO BID [facility] Last Admin: 07/27/19 07:55 Dose: 50 mg Documented by: Morphine Sulfate () 1 - 2 mg IV Q4H PRN PRN PRN Reason: Pain Score 4-10/10 Multivitamins/Minerals (Multivitamin With Minerals) 1 tablet PO DAILY@0800 [facility] Last Admin: 07/27/19 07:55 Dose: 1 tablet Documented by: Nutritional Formula (Lactose Free) (Ensure Enlive) 120 ml PO 4X/DAY [facility] Last Admin: 07/27/19 07:54 Dose: 120 ml Documented by: Ondansetron HCl (Zofran) 4 mg IV Q8H PRN PRN PRN Reason: Nausea Oxycodone HCl (Oxyir) 5 mg PO Q4H PRN PRN PRN Reason: Pain Score 4-10/10 Last Admin: 07/27/19 07:54 Dose: 5 mg Documented by: Polyethylene Glycol (Miralax) 17 gm PO DAILY [facility] Last Admin: 07/27/19 07:57 Dose: 17 gm Documented by: Sodium Chloride () 10 - 40 ml IV UD PRN PRN Reason: SALINE FLUSH Last Admin: 07/25/19 17:30 Dose: 10 ml Documented by: Thyroid ([place] Thyroid) 30 mg PO DAILY@0600 [facility] Last Admin: 07/27/19 05:34 Dose: 30 mg Documented by: Medical Necessity - Tobacco Use Smoking Status: Never smoker Tobacco Use: Chew Assessment/Plan All Active Problems (Last Reviewed 06/27/19 @ 16:02 by ARCHIE Thomas) Fracture of femoral neck, left, closed (Acute) CAP (community acquired pneumonia) (Resolved) Hypotension (Resolved) Sepsis (Resolved) (HFpEF) heart failure with preserved ejection fraction (Ruled-out) Stable impacted left subcapital hip fracture At this time she is doing well with walker ambulation, protected weightbearing and non operative treatment. OK to discharge to rehab when bed available. Would re-xray left hip in 7-10 days or sooner if she becomes more symptomatic. Will follow up upon discharge from rehab.
[2019-07-27] MEDS: Acetaminophen 325 MG Tablet 650 MG PO (18:56)
[2019-07-27] MEDS: Furosemide 20 MG Tablet PO (21:49)
[2019-07-27] MEDS: clonazePAM 0.5 MG Tablet 0.25 MG PO (21:49)
[2019-07-27] MEDS: Imipramine HCl 25 MG Tablet 50 MG PO (21:51)
[2019-07-28] MEDS: Acetaminophen 325 MG Tablet 650 MG PO ×2 (03:35→10:00)
[2019-07-28] MEDS: Magnesium Hydroxide 30 ML UDC PO (03:38)
[2019-07-28 03:41] VITALS: BP 123/68; PULSE 92; RESP 18; TEMP 36.3; O2SAT 97
[2019-07-28] MEDS: Thyroid 15 MG Tablet 30 MG PO (05:28)
[2019-07-28 07:00] VITALS: RESP 18
[2019-07-28] MEDS: APIXABAN 5 MG TABLET PO (08:44)
[2019-07-28] MEDS: Multivitamins,Ther W-Minerals Tablet 1 TABLET PO (08:44)
[2019-07-28 08:45] VITALS: BP 147/89; PULSE 67
[2019-07-28] MEDS: Metoprolol Tartrate 50 MG Tablet PO (08:45)
[2019-07-28] MEDS: Furosemide 20 MG Tablet PO (08:45)
[2019-07-28] MEDS: Digoxin 125 MCG Tablet PO (08:45)
[2019-07-28] MEDS: Lisinopril 2.5 MG Tablet PO (08:46)
[2019-07-28] MEDS: Polyethylene Glycol 3350 17 GM PACKET PO (08:46)
--- NOTE | 2019-07-28 10:04 | CASEMGMT ---
Addendum entered by Dalila Goodwin 07/28/19 11:03: [employer] updated this worker that pt is discharging to [facility] today. SW in to speak with pt and pt's daughter present in room. SW updated pt and pt's daughter that [facility] is able to accept pt and physician is discharging pt today. Pt states understanding. SW called pt's CLEMENT Dupree and left her a message updating her that pt will be discharged to [facility] today. Plan: [facility] today [facility] Original Note: Social Work Note SW reviewed notes, referral was sent to [facility]. [place] placed a call to Lidia with [facility]. Lidia states pt has been approved for [facility] and pt is able to discharge to [facility] today. Plan: [facility] once medically cleared [facility]
--- NOTE | 2019-07-28 11:21 | DCINST_ITS ---
- Discharge Diagnoses Current Active Problems: Current Active and Chronic Problems (Last Reviewed 06/27/19 @ 16:02 by ARCHIE Thomas) Fracture of femoral neck, left, closed (Acute) You will use the following diet at home:: No restrictions Discharge Activity: Return to Normal Activity Call your doctor if you observe: Shortness of breath, Dizziness, Fainting spells, Chest pain Additional Instructions: Patient will need re-xray left hip in 7-[address] Carnes to follow at Rehab. Allergies/Adverse Reactions: Allergies No Known Allergies Allergy (Verified 07/25/19 16:29) Medications to take at Discharge polyethylene glycol 3350 17 gram oral powder packet 17 g PO DAILY 06/20/18 Digoxin 125 mcg PO DAILY 02/24/19 Multivitamin with Minerals [Multiple Vitamin] 1 tab PO DAILY 02/24/19 Ensure Enlive 120 ml PO 4X/DAY liquid 02/27/19 thyroid (pork) 30 mg tablet 30 mg PO DAILY #90 tab 03/08/19 clonazepam 0.5 mg tablet 0.25 mg PO QHS #30 tab 03/21/19 apixaban 5 mg tablet 5 mg PO BID #60 tab 05/07/19 metoprolol tartrate 50 mg tablet 50 mg PO BID #60 tab 05/07/19 imipramine 50 mg tablet 50 mg PO QHS tab 05/20/19 potassium chloride ER 10 mEq tablet,extended release 20 meq PO DAILY #60 tablet.er 05/28/19 lisinopril 2.5 mg tablet 2.5 mg PO DAILY tab 06/27/19 Cholecalciferol (Vitamin D3) [Vitamin D3] 2,000 unit PO DAILY 07/25/19 Cyanocobalamin/Folic Acid [Vitamin L83-Nnndr Acid Tablet] 1 tab PO DAILY 07/25/19 Prochlorperazine Maleate 2.5 mg PO TID PRN PRN 07/25/19 furosemide 20 mg tablet 20 mg PO BID tab 07/25/19 Acetaminophen [Tylenol Tablet] 650 mg PO Q6H PRN PRN tablet 07/28/19 Oxycodone [Oxyir] 5 mg PO Q4H PRN PRN 1 Days tablet 07/28/19 Primary Care Physician: Daljit Sen DO [Primary Care Provider] - Please follow up with your Primary Care Physician in: 1 Week Test Results: Test results from this visit will be discussed in further detail at your follow- up appointment, if applicable. Please Follow Up With: Goyo Carnes, When: To follow at rehab Proposed Discharge Date: 07/28/19
--- NOTE | 2019-07-28 11:24 | DS.PCM_ITS ---
<Funmi Gu - Last Filed: 07/28/19 11:30> Discharge Date and Diagnosis Date of Admission: 07/25/19 Date of Discharge: 07/28/19 - Primary Discharge Diagnosis Active and Suspected Problems (Last Reviewed 06/27/19 @ 16:02 by ARCHIE Thomas) 1. Nondisplaced subcapital fracture of the proximal left femur secondary to mechanical fall prior to admission 2. Chronic systolic CHF/nonischemic cardiomyopathy 3. Persistent atrial fibrillation 4. Moderately severe mitral insufficiency 5. Hypothyroidism 6. Anxiety/Depression 7. Severe protein calorie malnutrition - Secondary Discharge Diagnosis Chronic Problems (Last Reviewed 06/27/19 @ 16:02 by ARCHIE Thomas) Persistent atrial fibrillation (Chronic) Nonrheumatic mitral (valve) insufficiency (Chronic) Chronic systolic (congestive) heart failure (Chronic) Pleural effusion (Chronic) Nonrheumatic mitral (valve) prolapse (Chronic) Hypothyroidism (Chronic) Anxiety and depression (Chronic) Heart murmur (Chronic) Hospital Course and Treatment Imaging Results: Diagnostic Data Chest X-Ray 07/25/19 13:13 IMPRESSION: Hyperinflation. Mild degree of residual pleural parenchymal changes at the right lung base. Electronically Signed: Josiah Gayle, at 14:11 EST , Service support , Dr. Carnes- Ortho Operations: None Procedures: None Summary of Care Provided: The patient is a 79 year old F admitted 07/25/2019 due to fall with left hip pain. 1. Nondisplaced subcapital fracture of the proximal left femur secondary to mechanical fall prior to admission-Dr. Carnes following. Fall precautions. PT/OT. PRN pain regimen. Patient and family have elected for nonsurgical management at this time. Patient will have follow-up x-rays in 7 to 10 days. Discharge to rehab for further therapy. Ortho to follow at rehab. Patient complains of left knee pain, x-ray of left knee ordered prior to discharge to rehab. 2. Chronic systolic CHF/nonischemic cardiomyopathy-echo February 2018 showed an EF of 45%, moderately severe mitral valve insufficiency, RVSP estimated to be 42 mmHg. Continue home digoxin, Lasix, lisinopril, beta-steve, Lasix regimen. 3. Persistent atrial fibrillation-continue metoprolol, digoxin, Eliquis regimen. 4. Moderately severe mitral insufficiency-per echo February 2019. 5. Hypothyroidism-continue home medication regimen. 6. Anxiety/Depression-continue nightly clonazepam regimen, imipramine. 7. Severe protein calorie malnutrition-as evidenced by cachectic appearance, BMI 15. General: Alert, Oriented x3, Cooperative HEENT: Atraumatic, PERRLA, EOMI, Normocephalic Neck: Supple, No JVD, Negative Carotid Bruits Lungs: Clear to auscultation, Normal air movement Cardiovascular: Murmur, - - Atrial fibrillation, rate controlled Abdomen: Bowel Sounds Present, Soft, Non Tender, Non-Distended Extremities: No clubbing, No cyanosis, No edema, Capillary Refill Less than 3 Seconds Skin: No rashes, No breakdown Musculoskeletal: Cachexia, Muscle Wasting, Tenderness - Left hip, left knee Neurological: Cranial nerves II-XII grossly intact, Neuro grossly intact Psych/Mental Status: Normal Affect, Appropriate Patient seen and examined prior to discharge. Physical assessment as noted above. Patient is stable for discharge with follow up recommendations as noted above. This patient was seen by ROJAS Gonzalez under the supervision of Dr. Carter. - Physical Exam Vitals/I&O's: Vital Signs Temp Pulse Resp BP Pulse Ox 98.2 F 67 16 147/89 H 99 07/28/19 08:11 07/28/19 08:45 07/28/19 08:11 07/28/19 08:45 07/28/19 08:11 Oxygen Delivery Method Room Air Weight: 95 lb 0.308 oz Body Mass Index (BMI) 14.8 Intake and Output for Last 24 Hours 07/26/19 07/27/19 07/28/19 23:59 23:59 23:59 Intake Total 2060 / 2560 1880 / 2480 800 / 800 Output Total 1750 / 1950 200 / 200 Balance 310 / 610 1680 / 2280 800 / 800 Current Medications Acetaminophen (Tylenol) 650 mg PO Q6H PRN PRN PRN Reason: Pain Score 1-3 /Temp>100.7 Last Admin: 07/28/19 10:00 Dose: 650 mg Documented by: Apixaban (Eliquis) 5 mg PO BID [facility] Last Admin: 07/28/19 08:44 Dose: 5 mg Documented by: Cholecalciferol ([facility]itamin D) [facility] Last Admin: 07/28/19 08:44 Dose: 2,000 unit Documented by: Clonazepam (Klonopin) 0.25 mg PO QHS [facility] Last Admin: 07/27/19 21:49 Dose: 0.25 mg Documented by: Digoxin (Lanoxin) 125 mcg PO DAILY [facility] Last Admin: 07/28/19 08:45 Dose: 125 mcg Documented by: Docusate Sodium (Colace) 200 mg PO BID PRN PRN PRN Reason: Constipation Furosemide (Lasix) 20 mg PO BID [facility] Last Admin: 07/28/19 08:45 Dose: 20 mg Documented by: Imipramine HCl (Tofranil) 50 mg PO QHS [facility] Last Admin: 07/27/19 21:51 Dose: 25 mg Documented by: Lisinopril (Zestril) 2.5 mg PO DAILY [facility] Last Admin: 07/28/19 08:46 Dose: 2.5 mg Documented by: Magnesium Hydroxide (Milk Of Magnesia) 30 ml PO DAILY PRN PRN PRN Reason: Constipation Last Admin: 07/28/19 03:38 Dose: 30 ml Documented by: Metoprolol Tartrate (Lopressor (Beta Steve)) 50 mg PO BID [facility] Last Admin: 07/28/19 08:45 Dose: 50 mg Documented by: Morphine Sulfate () 1 - 2 mg IV Q4H PRN PRN PRN Reason: Pain Score 4-10/10 Multivitamins/Minerals (Multivitamin With Minerals) 1 tablet PO DAILY@0800 [facility] Last Admin: 07/28/19 08:44 Dose: 1 tablet Documented by: Nutritional Formula (Lactose Free) (Ensure Enlive) 120 ml PO 4X/DAY [facility] Last Admin: 07/28/19 08:47 Dose: 120 ml Documented by: Ondansetron HCl (Zofran) 4 mg IV Q8H PRN PRN PRN Reason: Nausea Oxycodone HCl (Oxyir) 5 mg PO Q4H PRN PRN PRN Reason: Pain Score 4-10/10 Last Admin: 07/27/19 12:21 Dose: 5 mg Documented by: Polyethylene Glycol (Miralax) 17 gm PO DAILY [facility] Last Admin: 07/28/19 08:46 Dose: 17 gm Documented by: Sodium Chloride () 10 - 40 ml IV UD PRN PRN Reason: SALINE FLUSH Last Admin: 07/25/19 17:30 Dose: 10 ml Documented by: Thyroid ([facility] Thyroid) 30 mg PO DAILY@0600 [facility] Last Admin: 07/28/19 05:28 Dose: 30 mg Documented by: Discharge Diet: No Restrictions Discharge Activity: Return to Normal Activity Call your doctor if you observe: Shortness of breath, Dizziness, Fainting spells, Chest pain Home Medications: Medications to take at Discharge polyethylene glycol 3350 17 gram oral powder packet 17 g PO DAILY 06/20/18 Digoxin 125 mcg PO DAILY 02/24/19 Multivitamin with Minerals [Multiple Vitamin] 1 tab PO DAILY 02/24/19 Ensure Enlive 120 ml PO 4X/DAY liquid 02/27/19 thyroid (pork) 30 mg tablet 30 mg PO DAILY #90 tab 03/08/19 clonazepam 0.5 mg tablet 0.25 mg PO QHS #30 tab 03/21/19 apixaban 5 mg tablet 5 mg PO BID #60 tab 05/07/19 metoprolol tartrate 50 mg tablet 50 mg PO BID #60 tab 05/07/19 imipramine 50 mg tablet 50 mg PO QHS tab 05/20/19 potassium chloride ER 10 mEq tablet,extended release 20 meq PO DAILY #60 tablet.er 05/28/19 lisinopril 2.5 mg tablet 2.5 mg PO DAILY tab 06/27/19 Cholecalciferol (Vitamin D3) [Vitamin D3] 2,000 unit PO DAILY 07/25/19 Cyanocobalamin/Folic Acid [Vitamin E82-Sthty Acid Tablet] 1 tab PO DAILY 07/25/19 Prochlorperazine Maleate 2.5 mg PO TID PRN PRN 07/25/19 furosemide 20 mg tablet 20 mg PO BID tab 07/25/19 Acetaminophen [Tylenol Tablet] 650 mg PO Q6H PRN PRN tab 07/28/19 Oxycodone [Oxyir] 5 mg PO Q4H PRN PRN 1 Days tab 07/28/19 Primary Care Physician: Daljit Sen DO [Primary Care Provider] - Please follow up with your Primary Care Physician in: 1 Week Please Follow Up With: Knapic,Goyo, DO When: To follow at rehab Disposition: Inpt Rehab Unit/Facility Minutes spent on discharge:: 35 Patient Condition:: Stable Medical Necessity - Tobacco Use Smoking Status: Never smoker Tobacco Use: Chew Meaningful Use Info Meaningful Use Diagnoses (Choose all that apply): None applicable <JudyrossymarekCortez F - Last Filed: 07/28/19 13:10> Discharge Date and Diagnosis - Secondary Discharge Diagnosis Chronic Problems (Last Reviewed 06/27/19 @ 16:02 by ARCHIE Thomas) Persistent atrial fibrillation (Chronic) Nonrheumatic mitral (valve) insufficiency (Chronic) Chronic systolic (congestive) heart failure (Chronic) Pleural effusion (Chronic) Nonrheumatic mitral (valve) prolapse (Chronic) Hypothyroidism (Chronic) Anxiety and depression (Chronic) Heart murmur (Chronic) Hospital Course and Treatment Imaging Results: 07/28/19 11:18 Xray Knee [Knee 3 Views] [RAD] Urgent Summary of Care Provided: The patient is a 79 year old F [] - Physical Exam Vitals/I&O's: Vital Signs Temp Pulse Resp BP Pulse Ox 98.5 F 90 18 96/50 L 98 07/28/19 12:42 07/28/19 12:42 07/28/19 12:42 07/28/19 12:42 07/28/19 12:42 Oxygen Delivery Method Room Air Weight: 95 lb 0.308 oz Body Mass Index (BMI) 14.8 Intake and Output for Last 24 Hours 07/26/19 07/27/19 07/28/19 23:59 23:59 23:59 Intake Total 2060 / 2560 1880 / 2480 1360 / 1360 Output Total 1750 / 1950 200 / 200 Balance 310 / 610 1680 / 2280 1360 / 1360 Current Medications Acetaminophen (Tylenol) 650 mg PO Q6H PRN PRN PRN Reason: Pain Score 1-3 /Temp>100.7 Last Admin: 07/28/19 10:00 Dose: 650 mg Documented by: Apixaban (Eliquis) 5 mg PO BID [facility] Last Admin: 07/28/19 08:44 Dose: 5 mg Documented by: Cholecalciferol (Vitamin D) 2,000 unit PO DAILYCM [facility] Last Admin: 07/28/19 08:44 Dose: 2,000 unit Documented by: Clonazepam (Klonopin) 0.25 mg PO QHS [facility] Last Admin: 07/27/19 21:49 Dose: 0.25 mg Documented by: Digoxin (Lanoxin) 125 mcg PO DAILY [facility] Last Admin: 07/28/19 08:45 Dose: 125 mcg Documented by: Docusate Sodium (Colace) 200 mg PO BID PRN PRN PRN Reason: Constipation Furosemide (Lasix) 20 mg PO BID [facility] Last Admin: 07/28/19 08:45 Dose: 20 mg Documented by: Imipramine HCl (Tofranil) 50 mg PO QHS [facility] Last Admin: 07/27/19 21:51 Dose: 25 mg Documented by: Lisinopril (Zestril) 2.5 mg PO DAILY [facility] Last Admin: 07/28/19 08:46 Dose: 2.5 mg Documented by: Magnesium Hydroxide (Milk Of Magnesia) 30 ml PO DAILY PRN PRN PRN Reason: Constipation Last Admin: 07/28/19 03:38 Dose: 30 ml Documented by: Metoprolol Tartrate (Lopressor (Beta Steve)) 50 mg PO BID [facility] Last Admin: 07/28/19 08:45 Dose: 50 mg Documented by: Morphine Sulfate () 1 - 2 mg IV Q4H PRN PRN PRN Reason: Pain Score 4-10/10 Multivitamins/Minerals (Multivitamin With Minerals) 1 tablet PO DAILY@0800 [facility] Last Admin: 07/28/19 08:44 Dose: 1 tablet Documented by: Nutritional Formula (Lactose Free) (Ensure Enlive) 120 ml PO 4X/DAY [facility] Last Admin: 07/28/19 08:47 Dose: 120 ml Documented by: Ondansetron HCl (Zofran) 4 mg IV Q8H PRN PRN PRN Reason: Nausea Oxycodone HCl (Oxyir) 5 mg PO Q4H PRN PRN PRN Reason: Pain Score 4-10/10 Last Admin: 07/27/19 12:21 Dose: 5 mg Documented by: Polyethylene Glycol (Miralax) 17 gm PO DAILY [facility] Last Admin: 07/28/19 08:46 Dose: 17 gm Documented by: Sodium Chloride () 10 - 40 ml IV UD PRN PRN Reason: SALINE FLUSH Last Admin: 07/25/19 17:30 Dose: 10 ml Documented by: Thyroid ([facility] Thyroid) 30 mg PO DAILY@0600 [facility] Last Admin: 07/28/19 05:28 Dose: 30 mg Documented by: Code Visit Addendum: Dr. Carter I personally examined the patient and reviewed the chart. I agree with the above. 79-year-old female with history of A. fib, chronic systolic heart failur e, presented after a fall with left hip pain. She did fall about 2 weeks prior to admission she has been ambulating since that time however with significant hip pain. Imaging demonstrated a nondisplaced subcapital fracture of the proximal and this was considered normal by orthopedic surgery. Based on her PT/OT and she will be transferred to the rehab unit for continued therapy and she will need a x-ray of her hip in 10 days for further evaluation. She feels well today and her pain is decently controlled. Inpatient E&M: 41108 Disch Hosp
[2019-07-28 12:42] VITALS: BP 96/50; PULSE 90; RESP 18; TEMP 36.9; O2SAT 98
--- NOTE | 2019-07-28 13:30 | RAD_ITS ---
STUDY: X-RAY - LEFT KNEE REASON FOR EXAM: Female, 79 years old. Pain. TECHNIQUE: 4 view(s) of the knee. COMPARISON: None. FINDINGS: No acute fracture, dislocation or osseous destruction. Moderate lateral compartment joint space narrowing. Medial compartment preserved. Minimal patellofemoral joint space narrowing. Small joint effusion. RAD/Knee 4 or More Views IMPRESSION: Left knee intact Lateral compartment osteoarthritis Small joint effusion Electronically Signed: Lester Molina DO at 13:43 EST Tel , Service support ,
--- NOTE | 2019-07-28 14:02 | NURSING ---
REPORT CALLED TO SHEYLA JACKSON ON RU
--- NOTE | 2019-07-28 14:39 | CHAPLAIN ---
Type of Pastoral Visit _x__ Initial Visit ___ Follow-up Visit ___ On-call Visit ___ General Patient Visit ___ Spiritual Assessment ___ Family Conference ___ Bereavement ___ Rapid Response ___ Code Blue ___ Other (describe below) Pastoral Care Referral From _x__ Patient _x__ Family ___ Nurse ___ Physician ___ Supervisor Counseling And Guidance ___ Digital Account Coordinator ___ Other (describe below) Sacrament/Intervention _x__ Active listening ___ Anointing ___ Taoist ___ Bereavement ___ Communion ___ Sigrid exploration ___ ___ Life review _x__ Prayer ___ Reconciliation ___ Sacrament of Sick _x__ Supportive presence ___ Wedding ___ Other (describe below) Pastoral Comments
[2019-07-28 15:00] VITALS: BP 96/50; PULSE 90; RESP 18; TEMP 36.9; O2SAT 98
== END 2019-07-28 14:40 | DRG 535 ==
LOC: ED 14:28 → MS3 15:34
PROVIDERS: Nurse Practitioner Family; Admitting Provider Internal Medicine; Emergency Provider Emergency Medicine; Family Provider Family Medicine; PCP Family Medicine; Visit Provider Family Medicine
DX: S72.012A Unspecified intracapsular fracture of left femur, initial encounter for closed fracture (principal); E43 Unspecified severe protein-calorie malnutrition; I50.22 Chronic systolic (congestive) heart failure; E87.1 Hypo-osmolality and hyponatremia; I48.19 Other persistent atrial fibrillation; Z68.1 Body mass index [BMI] 19.9 or less, adult; I42.8 Other cardiomyopathies; E03.9 Hypothyroidism, unspecified; I34.1 Nonrheumatic mitral (valve) prolapse; W19.XXXA Unspecified fall, initial encounter; I27.20 Pulmonary hypertension, unspecified; E86.0 Dehydration; I34.0 Nonrheumatic mitral (valve) insufficiency; F32.9 Major depressive disorder, single episode, unspecified; F41.9 Anxiety disorder, unspecified; Z79.01 Long term (current) use of anticoagulants
CPT/HCPCS: 36415; 71046; 73503; 73564; 80048; 80162; 85025; 85610; 85730; 86850; 86900; 86901; 93005; 97116; 97161; 97165; 97530; 97802; 99285; J7030; A4216

== ENCOUNTER 2019-07-28 14:50 | Inpatient (IN) | payer MEDICARE, BC, SELFPAY ==
[2019-07-25 16:09] VITALS: BMI 14.8
[2019-07-28 14:55] VITALS: BP 95/57; PULSE 84; RESP 17; TEMP 36.6; O2SAT 99; BMI 15.0
--- NOTE | 2019-07-28 15:34 | REHABEVAL_ITS ---
Admission Information Primary Diagnosis:: Debility secondary to nondisplaced subcapital left hip fracture Status Changes from Prescreening?: No changes Identified Actual Problem List:: Falls, Pain, ALteration in Cmfrt, Bowel, Constipation, Mobility Impaired, Self Care Deficit, BP, Hypertension Potential Problem List:: DVT, Bleeding, UTI, Falls, Skin Integrity, Depression Risk of Complications DVT: JOANNE Navarro, - - Patient is on Eliquis 5 mg p.o. twice daily Bleeding: Monitor Lab Values, Nursing to Teach Precautions for anti-coagulation therapy. Infection: Clinical Staff to Monitor for S/S of infection:, S/S of infection include fever, redness, warmth, etc. Urinary Tract Infection: Monitor for frequency, burning, discomfort, or incontinence., Nursing will obtain urine sample for urinalysis and C&S when ordered. Aspiration: Clinical staff will monitor for coughing, drooling, congestion. Falls: Patient will be evaluated for Fall Precautions, Patient will be placed on Fall Precautions as indicated per protocol. Skin Breakdown: Nursing will assess skin daily using assessment tool., Nursing will place on Skin Breakdown Precautions as indicated. Pain: Clinical staff will assess patient's pain level per protocol., Medications will be given, if needed, and the pain level reassessed., Other methods: Massage, distraction, decrease stimulus, etc. used PRN. Plan of Care Patient requires physician specializing in physical medicine and rehab oversight to provide close medical supervision of rehab issues including: Pain Management, Medical and co-morbidity Management, DVT prophylaxis, Coordination of treatment team Patient needs Physical Therapy: At least 5 out of 7 days, For a minimum of 1.5 hrs Patient needs Physical Therapy to improve:: Mobility, Strengthening, Transfers, Stretching, ROM, Endurance, Stairs, Gait, Balance Patient needs Occupational Therapy: For a minimum of 1 hour, At least 5 out of 7 days, For a minimum of 1.5 hrs Patient needs Occupational Therapy to improve ADL's incl.: Bathing, Dressing, Toileting, Toilet transfers, Household tasks, Adaptive Equipment, Other activities as determined Patient requires 24/7 Rehabilitation Nursing for: Pain Issues, Identifying and preventing risk factors, Monitoring and reporting current medical conditions, Assisting with ambulation, transfer, and all ADL's, Teaching patients about disease process and medications, Providing safe environment, Bowel and Bladder Issues, Skin integrity, Medication Management Patient needs Community Product Specialist/ Case Management for: Discharge Planning, Arranging Home Equipment or Services, Family Interventions Patient needs Dietary and Nutrition Services for: Adequate Nutrition, Nutritional Supplements, Nutritional Education Goals Patient will remain: free from falls, or injury at time of discharge. Patient will perform bed mobility at: MOD I level of assist. Patient will complete transfers from bed to chair at: MOD I level of assist. Patient will ambulate: 100 feet, with MOD I assist, with LRD Patient will complete upper body dressing at: MOD I level of assist. Patient will complete lower body dressing at: MOD I level of assist. Patient will complete toileting at: MOD I level of assist. Patient will perform bathing at: MOD I level of assist. Patient will complete grooming at: MOD I level of assist. Patient will complete home management skills at: MOD I level of assist. Patient will achieve: 12 stairs, at MOD I assist, - - has 6 stairs at home Patient will have pain level of: of 3 or less Patient's skin will: remain intact, free from infection. Patient will receive: adequate nutrition. Discharge Planning Pt Prognosis for Sig. Practical Improv. w/in Reasonable Time: Good Estimated Length of stay (days): 21 Anticipated D/C Destination: Home w/ family or friends Was Preadmission Assessment Accurate?: Yes
--- NOTE | 2019-07-28 15:41 | PCM.HP.STD ---
Problem List (1) Mitral insufficiency Status: Chronic Qualifiers: Cardiac valve disease etiology: nonrheumatic Qualified Code(s): I34.0 - Nonrheumatic mitral (valve) insufficiency (2) Hyponatremia Status: Acute (3) Fracture of femoral neck, left, closed Status: Acute Qualifiers: Encounter type: subsequent encounter (4) Persistent atrial fibrillation Status: Chronic (5) Nonrheumatic mitral (valve) insufficiency Status: Chronic Comment: Moderate to severe (6) Chronic systolic (congestive) heart failure Status: Chronic Comment: EF in February 2019 was 45%. (7) Pleural effusion Status: Chronic Comment: seen on an ECHO, not on CXR (8) Nonrheumatic mitral (valve) prolapse Status: Chronic (9) Hypothyroidism Status: Chronic (10) Anxiety and depression Status: Chronic (11) Heart murmur Status: Chronic (12) Pulmonary hypertension Status: Chronic Comment: PA systolic was estimated at 42 in February 2019 on echocardiogram (13) Diastolic dysfunction Status: Chronic History of Present Illness Date of Admission: 07/28/19 Chief Complaint: Debility secondary to subacute nondisplaced subcapital fracture of the left hip The patient is a 79 year old F with a past medical history of mild to moderate pulmonary hypertension, 3+ mitral regurgitation, persistent atrial fibrillation, nonischemic cardiomyopathy with a 45% ejection fraction, chronic anticoagulation with apixaban, hypothyroidism, anxiety/depression, hypertension and chronic systolic congestive heart failure who presented to the emergency department at [facility] on 07/25/2019 complaining of left hip pain which had been present for approximately 2 weeks. She was diagnosed with a nondisplaced subcapital fracture of the left hip. She was admitted to the hospital and was seen in consultation by Dr. Goyo Carnes who felt that she could be managed nonsurgically. She was transferred to the inpatient rehab unit at [facility] on 07/28/2019 for debility secondary to nondisplaced subcapital fracture of the left hip for 3 hours of therapy daily with a goal of returning home after near her prior level of independence. She lives at home with her and has 6 stairs to get up into the house. She does not drive. She uses a cane as an assistive device prior to the hip fracture. February, TTE Active Medications Generic Name Dose Route Start Last Admin Trade Name Freq PRN Reason Stop Dose Admin Acetaminophen 1,000 mg 07/28/19 22:00 Tylenol PO Q8 [facility] Apixaban 5 mg 07/28/19 22:00 Eliquis PO BID [facility] Bisacodyl 10 mg 07/28/19 15:01 Dulcolax RECTAL .PRN X 1 PRN Constipation Cholecalciferol 2,000 unit 07/29/19 10:00 Vitamin D PO DAILY [facility] Clonazepam 0.25 mg 07/28/19 22:00 Klonopin PO QHS [facility] Digoxin 125 mcg 07/29/19 10:00 Lanoxin PO DAILY [facility] Famotidine 20 mg 07/29/19 10:00 Pepcid PO DAILY [facility] Furosemide 20 mg 07/28/19 18:00 Lasix PO BID@1000,1800 [facility] Imipramine HCl 50 mg 07/28/19 22:00 Tofranil PO QHS [facility] Lisinopril 2.5 mg 07/29/19 10:00 Zestril PO DAILY [facility] Magnesium Hydroxide 30 ml 07/28/19 15:01 Milk Of Magnesia PO .PRN X 1 PRN Constipation Metoprolol Tartrate 50 mg 07/28/19 22:00 Lopressor (Beta Steve) PO BID [facility] Multivitamins 1 tablet 07/29/19 08:[facility] Oxycodone HCl 5 mg 07/28/19 15:01 Oxyir PO Q6H PRN PRN Pain Score 6-10/10 Polyethylene Glycol 17 gm 07/29/19 10:00 Miralax PO DAILY [facility] Potassium Chloride 20 meq 07/29/19 08:00 [facility] Thyroid 30 mg 07/29/19 06:00 [place] Thyroid PO DAILY@0600 [facility] Mild global left ventricular systolic dysfunction. The estimated ejection fraction is 45 %. The left atrium is moderately enlarged. There is mild mitral annular calcification. Anterior leaflet diffuse mitral valve thickening. Equivocal mitral valve prolapse. Moderately severe (3+) eccentric mitral valve insufficiency. Mild tricuspid valve insufficiency. Mild focal aortic valve calcification. Mild (1+) pulmonic valve insufficiency. Echo lucency compatible with a pleural effusion. Right ventricular systolic pressure estimated to be 42 mmHg. There is evidence of diastolic dysfunction. Past Medical History Past Medical History (Chronic Problems): Chronic Problems (Last Reviewed 06/27/19 @ 16:02 by Soraya M Bagley, PA) Mitral insufficiency (Chronic) Pulmonary hypertension (Chronic) PA systolic was estimated at 42 in February 2019 on echocardiogram Diastolic dysfunction (Chronic) Persistent atrial fibrillation (Chronic) Nonrheumatic mitral (valve) insufficiency (Chronic) Moderate to severe Chronic systolic (congestive) heart failure (Chronic) EF in February 2019 was 45%. Pleural effusion (Chronic) seen on an ECHO, not on CXR Nonrheumatic mitral (valve) prolapse (Chronic) Hypothyroidism (Chronic) Anxiety and depression (Chronic) Heart murmur (Chronic) Medical History: Medical History (Last Reviewed 07/28/19 @ 15:51 by Ofelia White DO) Persistent atrial fibrillation (Chronic) I48.1 Nonrheumatic mitral (valve) insufficiency (Chronic) I34.0 Moderate to severe Chronic systolic (congestive) heart failure (Chronic) I50.22 EF in February 2019 was 45%. Pleural effusion (Chronic) J90 seen on an ECHO, not on CXR Nonrheumatic mitral (valve) prolapse (Chronic) I34.1 Hypothyroidism (Chronic) E03.9 Anxiety and depression (Chronic) F41.9, F32.9 Heart murmur (Chronic) R01.1 GERD (gastroesophageal reflux disease) K21.9 History of basal cell carcinoma Z85.828 History of cataract Z86.69 History of hepatitis Z86.19 Hormone replacement therapy Z79.890 IBS (irritable bowel syndrome) K58.9 CAP (community acquired pneumonia) (Resolved) J18.9 History of hysterectomy Z90.710 Hypotension (Resolved) I95.9 Sepsis (Resolved) A41.9 (HFpEF) heart failure with preserved ejection fraction (Ruled-out) I50.30 A-fib (Inactive) I48.91 Allergies No Known Allergies Allergy (Verified 07/25/19 16:29) Home Medications: Ambulatory Orders Medication Instructions Recorded polyethylene glycol 3350 17 gram 17 g PO DAILY 06/20/18 oral powder packet Digoxin 125 mcg PO DAILY 02/24/19 Multivitamin with Minerals 1 tab PO DAILY 02/24/19 [Multiple Vitamin] Ensure Enlive 120 ml PO 4X/DAY liquid 02/27/19 thyroid (pork) 30 mg tablet 30 mg PO DAILY #90 tab 03/08/19 clonazepam 0.5 mg tablet 0.25 mg PO QHS #30 tab 03/21/19 apixaban 5 mg tablet 5 mg PO BID #60 tab 05/07/19 metoprolol tartrate 50 mg tablet 50 mg PO BID #60 tab 05/07/19 imipramine 50 mg tablet 50 mg PO QHS tab 05/20/19 potassium chloride ER 10 mEq 20 meq PO DAILY #60 tablet.er 05/28/19 tablet,extended release lisinopril 2.5 mg tablet 2.5 mg PO DAILY tab 06/27/19 Cholecalciferol (Vitamin D3) 2,000 unit PO DAILY 07/25/19 [Vitamin D3] Cyanocobalamin/Folic Acid [Vitamin 1 tab PO DAILY 07/25/19 Z98-Zuspv Acid Tablet] Prochlorperazine Maleate 2.5 mg PO TID PRN PRN 07/25/19 furosemide 20 mg tablet 20 mg PO BID tab 07/25/19 Acetaminophen [Tylenol Tablet] 650 mg PO Q6H PRN PRN tab 07/28/19 Oxycodone [Oxyir] 5 mg PO Q4H PRN PRN 1 Days tab 07/28/19 Surgical History: Surgical History (Last Reviewed 07/28/19 @ 15:51 by Ofelia White DO) History of cholecystectomy Z90.49 Surgical History: appendectomy, cholecystectomy, - - Cataract surgery, hysterectomy Psychiatric History: Anxiety, Depression LICENSED MARRIAGE AND FAMILY THERAPIST History: No pertinent LICENSED MARRIAGE AND FAMILY THERAPIST history Lives: Spouse/ Significant Other Smoking Status: Never smoker Tobacco Use: Non-smoker Alcohol: None Drugs: None - *Family History Paternal Family History: Family History (Last Reviewed 07/28/19 @ 15:51 by Ofelia White DO) Grandmother Colon cancer Grandfather Myocardial infarction Mother Heart disease Myocardial infarction Parkinsons History Items: - - Denies known paternal medical history including cardiac history. Maternal Family History: Family History (Last Reviewed 07/28/19 @ 15:51 by Ofelia White DO) Grandmother Colon cancer Grandfather Myocardial infarction Mother Heart disease Myocardial infarction Parkinsons History Items: No pertinent history Review of Systems Constitutional: Reports: - - She has had decreased appetite and intake since fracture of her hip and has lost a few pounds.. Denies: Chills, Fever, Weight Change Eyes: Denies: Blurred vision HEENT: Denies: Head Aches, Sinus Congestion, Sinus Drainage Cardiovascular: Reports: Light Headedness - She had lightheadedness at presentation to the emergency room and prior to that at home however since receiving IV fluids and holding Lasix for 1 day the lightheadedness has resolved. Denies: Chest Pain, Edema, Palpitations Respiratory: Denies: Cough, Pleuritic Pain, Shortness of breath at rest, Sputum production, Wheezing Gastrointestinal: Denies: Abdominal Pain, Nausea, Vomiting Genitourinary: Denies: Dysuria, Frequency Musculoskeletal: Reports: Joint Pain - Left hip, left knee. Denies: Joint Tenderness Skin: Denies: Jaundice, Rash, Wounds Neurological: Denies: Slurred speech, Confusion, Focal weakness, Numbness, Tingling, Tremor, Seizures Psychiatric: Reports: Anxiety, Depression. Denies: Homicidal Ideations, Suicidal Ideations Endocrine: Denies: Change in Body Habitus Hematologic/ Lymphatic: Reports: Easy Bruising, Easy Bleeding. Denies: Hx of blood clot VTE Information - Inpt Only VTE Present on Admission: No VTE Mechan Device Prophylaxis: Knee High JOANNE Hose VTE Pharm Prophylaxis ordered?: Yes Patient Problems: Active and Suspected Problems (Last Reviewed 06/27/19 @ 16:02 by ARCHIE Thomas) Hyponatremia (Acute) - Physical Exam Vitals/I&O's: Weight: 96 lb Body Mass Index (BMI) 15.0 General: Alert, Oriented x3, Cooperative, No apparent distress, - - she is very thin HEENT: Atraumatic, PERRLA, EOMI, Normocephalic Oral: No Gingival or Mucosal Lesions/ Ulcerations, Dry Mucosa Neck: Supple, No JVD, Negative Carotid Bruits Lungs: Clear to auscultation, Normal air movement, No rhonchi, No wheeze, No rales Cardiovascular: Normal S1, Normal S2, Irregular Rate - She is in atrial fibrillation, Murmur Abdomen: Bowel Sounds Present, Soft, Non Tender, Non-Distended Extremities: No clubbing, No cyanosis, No edema, Capillary Refill Less than 3 Seconds, No Calf Tenderness, Peripheral Pulses Normal Skin: No rashes, No breakdown Musculoskeletal: Arthritic Changes, Tenderness - Of the left knee to palpation with no erythema, openings in the skin or increased warmth to touch. No significant swelling. Neurological: Cranial nerves II-XII grossly intact, Neuro grossly intact Psych/Mental Status: Normal Affect, Appropriate Current Medications Acetaminophen (Tylenol) 1,000 mg PO Q8 [facility] Apixaban (Eliquis) 5 mg PO BID [facility] Bisacodyl (Dulcolax) 10 mg RECTAL .PRN X 1 PRN PRN Reason: Constipation Cholecalciferol (Vitamin D) 2,000 unit PO DAILY [facility] Clonazepam (Klonopin) 0.25 mg PO QHS [facility] Digoxin (Lanoxin) 125 mcg PO DAILY [facility] Famotidine (Pepcid) 20 mg PO DAILY [facility] Furosemide (Lasix) 20 mg PO BID@1000,1800 [facility] Imipramine HCl (Tofranil) 50 mg PO QHS [facility] Lisinopril (Zestril) 2.5 mg PO DAILY [facility] Magnesium Hydroxide (Milk Of Magnesia) 30 ml PO .PRN X 1 PRN PRN Reason: Constipation Metoprolol Tartrate (Lopressor (Beta Steve)) 50 mg PO BID [facility] Multivitamins (Multivitamin) [facility] Oxycodone HCl (Oxyir) 5 mg PO Q6H PRN PRN PRN Reason: Pain Score 6-10/10 Polyethylene Glycol (Miralax) 17 gm PO DAILY [facility] Potassium Chloride (K-Dur) 20 meq PO DAILYCM [facility] Thyroid ([place] Thyroid) 30 mg PO DAILY@0600 [facility] Assessment/Plan All Active Problems (Last Reviewed 06/27/19 @ 16:02 by ARCHIE Thomas) Hyponatremia (Acute) Fracture of femoral neck, left, closed (Acute) CAP (community acquired pneumonia) (Resolved) Hypotension (Resolved) Sepsis (Resolved) (HFpEF) heart failure with preserved ejection fraction (Ruled-out) Impressions: 1. Debility secondary to a nondisplaced subcapital fracture of the left hip 2. AF/chronic anticoagulation with Eliquis/non-rheumatic moderate - severe eccentric MR/chronic systolic congestive heart failure due to nonischemic cardiomyopathy with a 45% ejection fraction/diastolic dysfunction/left atrial enlargement/hypothyroidism/hypertension/anxiety/depression?mild to moderate pulmonary hypertension - Continue the home medications The pt is a 79-year-old female with a PMH of nonischemic cardiomyopathy with a 45% ejection fraction, nonrheumatic moderate to severe mitral insufficiency, chronic anticoagulation with Eliquis, hypertension, anxiety/depression, hypothyroidism, persistent atrial fibrillation, diastolic dysfunction, left atrial enlargement and mild to moderate pulmonary hypertension with an echocardiogram in February 2019 showing a right ventricular systolic pressure estimated at 42 who was admitted to the Inpatient rehab unit at [facility] on 07/28/2019 for debility secondary to nondisplaced subcapital left hip fracture for greater than 3 hours of therapy daily with a goal of returning home at or near prior level of independence. The patient lives at home with her and has 6 steps to get into her home. She has never driven. The patient was independent with ADL's and using a cane as an assistive device prior to admission to the hospital. PLAN PT for gait stability OT for ADL's Analgesics as needed - Will schedule 1,000 mg of Tylenol Q 8H. PRN OXY IR Bowel protocol Fall precautions Assess for Anxiety/Depression and restart her home medications GI prophylaxis with Pepcid 20 mg p.o. daily DVT prophylaxis with Eliquis 5 mg p.o. twice daily for DVT prophylaxis and stroke prevention in a patient with atrial fibrillation Follow up with Dr. Tony Romano following DC from Rehab Repeat an XRAY of the left hip on 08/04/[address] Carnes when it has been completed so he can view the XRAY Recheck CBC, CMP, MAG, dig level and a vitamin D level in the AM Calcium + D Recommend that she have a DEXA as an OP post DC to assess her bone density. Code Visit Inpatient E&M: 41387 Init Hosp L3
[2019-07-28] MEDS: Calcium Carbonate 500 MG Tablet PO (16:47)
[2019-07-28] MEDS: Furosemide 20 MG Tablet PO (16:48)
[2019-07-28 19:50] VITALS: BP 111/37; PULSE 104; RESP 18; TEMP 36.6; O2SAT 99
[2019-07-28 20:03] VITALS: BP 111/37; PULSE 104
[2019-07-28] MEDS: Metoprolol Tartrate 50 MG Tablet PO (20:03)
[2019-07-28] MEDS: Acetaminophen 500 MG Tablet 1000 MG PO (20:03)
[2019-07-28] MEDS: clonazePAM 0.5 MG Tablet 0.25 MG PO (20:05)
[2019-07-28] MEDS: APIXABAN 5 MG TABLET PO (20:05)
[2019-07-28] MEDS: Imipramine HCl 25 MG Tablet 50 MG PO (20:06)
[2019-07-28] MEDS: Menthol/Lanolin/Calamine/Znox 113 GM Tube 1 APPLIC TOPICAL (21:41)
[2019-07-29] VITALS (8 sets, daily range): BP systolic 108–115; BP diastolic 57–75; PULSE 102–115; RESP 17–18; TEMP 36.2–36.6; O2SAT 96–100
[2019-07-29 06:02] LABS: Hematocrit 42.5 % (37-47); Hemoglobin 14.1 g/dL (12.0-15.0); Mean Corp Hgb Conc 33.2 g/dL (32-36); Mean Corpuscular Hgb 31.9 pg (27.0-32.0); Mean Corpuscular Volume 96.2 fL (81-99); Mean Platelet Vol. 9.9 fl (6.2-12.0); Platelet Count 297 K/mm3 (150-450); RBC Distribution Width CV 12.4 % (11.6-14.6); RBC Distribution Width SD 44.2 fl (35.1-43.9); Red Blood Count 4.42 M/mm3 (4.2-5.4); White Blood Count 6.4 K/mm3 (4.4-11.0)
[2019-07-29] MEDS: Thyroid 15 MG Tablet 30 MG PO (06:07)
[2019-07-29] MEDS: Acetaminophen 500 MG Tablet 1000 MG PO ×3 (06:08→21:18)
[2019-07-29 06:31] LABS: ALB/GLOB Ratio 0.8 RATIO (0.9-2.4); AST(SGOT) 24 U/L (15-37); Alanine Aminotransfer ALT/SGPT 24 U/L (13-56); Albumin, Serum 3.1 g/dL (3.2-5.0); Alkaline Phosphatase 90 U/L (45-117); Anion Gap 6 (5-15); BUN 20 mg/dL (7-18); BUN/Creat Ratio 29.6 RATIO (10-20); Calcium,Total 8.9 mg/dL (8.5-10.1); Chloride 98 mmol/L (98-107); Creatinine, Serum 0.68 mg/dL (0.55-1.02); EST Glomerular Filtration Rate 90 mL/min (>60); Est Glom Filt Rate - Afr Amer 109 mL/min (>60); Estimated Creatinine Clearance 32.39 ml/min; Globulin 3.8 g/dL (2.2-4.2); Glucose 82 mg/dL (74-106); Magnesium 2.2 mg/dL (1.6-2.6); Potassium 4.3 mmol/L (3.5-5.1); Protein, Total 6.9 g/dL (6.4-8.2); Sodium Level 135 mmol/L (136-145)
[2019-07-29 06:46] LABS: Digoxin Level 0.87 ng/mL (0.80-2.00)
[2019-07-29] MEDS: Digoxin 125 MCG Tablet PO (08:05)
[2019-07-29] MEDS: Calcium Carbonate 500 MG Tablet PO ×2 (08:05→17:18)
[2019-07-29] MEDS: APIXABAN 5 MG TABLET PO ×2 (08:05→21:19)
[2019-07-29] MEDS: Famotidine 20 MG Tablet PO (08:06)
[2019-07-29] MEDS: Lisinopril 2.5 MG Tablet PO (08:06)
[2019-07-29] MEDS: Metoprolol Tartrate 50 MG Tablet PO ×2 (08:06→21:19)
[2019-07-29] MEDS: Furosemide 20 MG Tablet PO ×2 (08:06→17:18)
[2019-07-29] MEDS: Multivitamins,Therapeutic Tablet 1 TABLET PO (08:06)
[2019-07-29] MEDS: Polyethylene Glycol 3350 17 GM PACKET PO (08:06)
[2019-07-29] MEDS: oxyCODONE 5 MG Tablet PO (08:13)
[2019-07-29] MEDS: Menthol/Lanolin/Calamine/Znox 113 GM Tube 1 APPLIC TOPICAL ×2 (08:14→21:21)
[2019-07-29 08:39] LABS: Vitamin D,25 Hydroxy 63.4 ng/mL (29.95-100.01)
[2019-07-29] MEDS: Imipramine HCl 25 MG Tablet 50 MG PO (21:19)
[2019-07-29] MEDS: clonazePAM 0.5 MG Tablet 0.25 MG PO (21:21)
[2019-07-30] VITALS (7 sets, daily range): BP systolic 98–105; BP diastolic 58–69; PULSE 80–101; RESP 16; TEMP 36.6–36.8; O2SAT 96–99
--- NOTE | 2019-07-30 03:44 | NURSING ---
Reviewed and agree with CASTING TECHNICIAN documentation and charting.
[2019-07-30] MEDS: Acetaminophen 500 MG Tablet 1000 MG PO ×3 (06:15→22:08)
[2019-07-30] MEDS: Furosemide 20 MG Tablet PO ×2 (06:16→13:51)
[2019-07-30] MEDS: Thyroid 15 MG Tablet 30 MG PO (06:16)
[2019-07-30] MEDS: oxyCODONE 5 MG Tablet PO ×3 (06:19→20:02)
[2019-07-30] MEDS: Calcium Carbonate 500 MG Tablet PO ×2 (09:30→16:51)
[2019-07-30] MEDS: APIXABAN 5 MG TABLET PO ×2 (09:30→22:10)
[2019-07-30] MEDS: Multivitamins,Therapeutic Tablet 1 TABLET PO (09:30)
[2019-07-30] MEDS: Famotidine 20 MG Tablet PO (09:31)
[2019-07-30] MEDS: Polyethylene Glycol 3350 17 GM PACKET PO (09:31)
[2019-07-30] MEDS: Metoprolol Tartrate 50 MG Tablet PO ×2 (09:31→22:23)
[2019-07-30] MEDS: Digoxin 125 MCG Tablet PO (09:31)
[2019-07-30] MEDS: Lisinopril 2.5 MG Tablet PO (09:32)
[2019-07-30] MEDS: Menthol/Lanolin/Calamine/Znox 113 GM Tube 1 APPLIC TOPICAL ×2 (09:42→22:10)
--- NOTE | 2019-07-30 18:28 | PCM.PROGNOTE ---
Patient Problems: Active and Suspected Problems (Last Reviewed 07/28/19 @ 15:51 by Ofelia White DO) Hyponatremia (Acute) Subjective: Care was discussed with the nursing staff. No problems identified. Please see the PT/OT notes for their findings. Afebrile since admission Pulse rate on 1125 and 1126 ranged from 10 2-1 15 however yesterday she was instructed to drink more and today her pulse rate is 99. Blood pressure is stable. She is maintaining appropriate oxygen saturation on room air. All lab from 07/29/2019 was personally reviewed. Labs significant for a mildly decreased sodium at 135 with a BUN of 20, creatinine of 0.68 and a BUN/creatinine ratio of 30. Vitamin D and calcium are within normal limits. CBC is normal. I reviewed the note from the dietitian and she exhibits evidence of malnutrition severe physical changes. Appetite recently has been poor secondary to pain related to the hip fracture. She is being provided nutritional supplements. She states that she had a little more pain with PT today. Feels a little more tired. + BM today. No CP and no calf pain. PT/OT notes reviewed. Please see the documentation for her progress. - Physical Exam Vitals/I&O's: Vital Signs Temp Pulse Resp BP Pulse Ox 97.8 F 99 16 98/58 L 99 07/30/19 10:00 07/30/19 10:00 07/30/19 10:00 07/30/19 10:00 07/30/19 10:00 Oxygen Delivery Method Room Air Weight: 93 lb 14.671 oz Body Mass Index (BMI) 15.0 General: Alert, Oriented x3, Cooperative, No apparent distress, - - pleasant and smiling Oral: No Gingival or Mucosal Lesions/ Ulcerations, Dry Mucosa Neck: Supple, Trachea Midline Lungs: Clear to auscultation, Normal air movement Cardiovascular: Normal S1, Normal S2, Irregular Rate - better rate control today, Murmur, No Gallop Abdomen: Bowel Sounds Present, Soft, Non Tender, Non-Distended Extremities: No edema Neurological: Cranial nerves II-XII grossly intact, Neuro grossly intact Psych/Mental Status: Normal Affect, Appropriate Current Medications Acetaminophen (Tylenol) 1,000 mg PO Q8 [facility] Last Admin: 07/30/19 13:16 Dose: 1,000 mg Documented by: Apixaban (Eliquis) 5 mg PO BID [facility] Last Admin: 07/30/19 09:30 Dose: 5 mg Documented by: Bisacodyl (Dulcolax) 10 mg RECTAL .PRN X 1 PRN PRN Reason: Constipation Calamine/Phenol (Calmoseptine Ointment) 1 applic TOPICAL BID [facility]; Protocol Last Admin: 07/30/19 09:42 Dose: 1 applicatio Documented by: Calcium Carbonate (Tums) 500 mg PO BID[facility] Last Admin: 07/30/19 16:51 Dose: 500 mg Documented by: Cholecalciferol (Vitamin D) 2,000 unit PO DAILY [facility] Last Admin: 07/30/19 09:32 Dose: 2,000 unit Documented by: Clonazepam (Klonopin) 0.25 mg PO QHS [facility] Last Admin: 07/29/19 21:21 Dose: 0.25 mg Documented by: Digoxin (Lanoxin) 125 mcg PO DAILY [facility] Last Admin: 07/30/19 09:31 Dose: 125 mcg Documented by: Famotidine (Pepcid) 20 mg PO DAILY [facility] Last Admin: 07/30/19 09:31 Dose: 20 mg Documented by: Furosemide (Lasix) 20 mg PO BID@0600,1400 [facility] Last Admin: 07/30/19 13:51 Dose: 20 mg Documented by: Imipramine HCl (Tofranil) 50 mg PO QHS [facility] Last Admin: 07/29/19 21:19 Dose: 50 mg Documented by: Lisinopril (Zestril) 2.5 mg PO DAILY [facility] Last Admin: 07/30/19 09:32 Dose: 2.5 mg Documented by: Magnesium Hydroxide (Milk Of Magnesia) 30 ml PO .PRN X 1 PRN PRN Reason: Constipation Metoprolol Tartrate (Lopressor (Beta Steve)) 50 mg PO BID [facility] Last Admin: 07/30/19 09:31 Dose: 50 mg Documented by: Multivitamins (Multivitamin) 1 tablet PO DAILY[facility] Last Admin: 07/30/19 09:30 Dose: 1 tablet Documented by: Nutritional Formula (Lactose Free) (Ensure Enlive) 120 ml PO 4X/DAY [facility] Last Admin: 07/30/19 17:01 Dose: 120 ml Documented by: Oxycodone HCl (Oxyir) 5 mg PO Q6H PRN PRN PRN Reason: Pain Score 6-10/10 Last Admin: 07/30/19 13:14 Dose: 5 mg Documented by: Polyethylene Glycol (Miralax) 17 gm PO DAILY [facility] Last Admin: 07/30/19 09:31 Dose: 17 gm Documented by: Potassium Chloride (K-Dur) 20 meq PO DAILY[facility] Last Admin: 07/30/19 09:30 Dose: 20 meq Documented by: Thyroid ([place] Thyroid) 30 mg PO DAILY@0600 [facility] Last Admin: 07/30/19 06:16 Dose: 30 mg Documented by: Medical Necessity - Tobacco Use Smoking Status: Never smoker Tobacco Use: Non-smoker Assessment/Plan All Active Problems (Last Reviewed 07/28/19 @ 15:51 by Ofelia White DO) Hyponatremia (Acute) Fracture of femoral neck, left, closed (Acute) CAP (community acquired pneumonia) (Resolved) Hypotension (Resolved) Sepsis (Resolved) (HFpEF) heart failure with preserved ejection fraction (Ruled-out) Impressions: 1. Debility secondary to a nondisplaced subcapital fracture of the left hip 2. AF/chronic anticoagulation with Eliquis/non-rheumatic moderate - severe eccentric MR/chronic systolic congestive heart failure due to nonischemic cardiomyopathy with a 45% ejection fraction/diastolic dysfunction/left atrial enlargement/hypothyroidism/hypertension/anxiety/depression?mild to moderate pulmonary hypertension - Continue the home medications The pt is a 79-year-old female with a PMH of nonischemic cardiomyopathy with a 45% ejection fraction, nonrheumatic moderate to severe mitral insufficiency, chronic anticoagulation with Eliquis, hypertension, anxiety/depression, hypothyroidism, persistent atrial fibrillation, diastolic dysfunction, left atrial enlargement and mild to moderate pulmonary hypertension with an echocardiogram in February 2019 showing a right ventricular systolic pressure estimated at 42 who was admitted to the Inpatient rehab unit at [facility] on 07/28/2019 for debility secondary to nondisplaced subcapital left hip fracture for greater than 3 hours of therapy daily with a goal of returning home at or near prior level of independence. The patient lives at home with her and has 6 steps to get into her home. She has never driven. The patient was independent with ADL's and using a cane as an assistive device prior to admission to the hospital. PLAN PT for gait stability OT for ADL's Analgesics as needed - Will schedule 1,000 mg of Tylenol Q 8H. PRN OXY IR Bowel protocol Fall precautions Assess for Anxiety/Depression and restart her home medications GI prophylaxis with Pepcid 20 mg p.o. daily DVT prophylaxis with Eliquis 5 mg p.o. twice daily for DVT prophylaxis and stroke prevention in a patient with atrial fibrillation Follow up with Dr. Goyo Romano following DC from Rehab Repeat an XRAY of the left hip on 08/04/[address] Carnes when it has been completed so he can view the XRAY Recheck CBC, CMP, MAG, dig level and a vitamin D level in the AM Calcium + D Recommend that she have a DEXA as an OP post DC to assess her bone density. No changes in meds today. she was encouraged to increase her fluid intake........or we could decrease the Lasix to once daily. If the HR remains a little high may give an extra dose of dig. Check orthostatics in the AM. I&O's ordered Code Visit Inpatient E&M: 59123 Subs Hosp L1
[2019-07-30] MEDS: Imipramine HCl 25 MG Tablet 50 MG PO (22:09)
[2019-07-30] MEDS: clonazePAM 0.5 MG Tablet 0.25 MG PO (22:09)
--- NOTE | 2019-07-30 22:21 | NURSING ---
DR MARCUS NOTIFIED OF PT'S BP OF 100/60. OK TO GIVE LOPRESSOR NOW SCHEDULED.
[2019-07-31] VITALS (7 sets, daily range): BP systolic 78–111; BP diastolic 46–68; PULSE 84–92; RESP 12–18; TEMP 36.3–36.6; O2SAT 96–98
[2019-07-31] MEDS: Thyroid 15 MG Tablet 30 MG PO (05:58)
[2019-07-31] MEDS: Furosemide 20 MG Tablet PO ×2 (05:59→13:47)
[2019-07-31] MEDS: Acetaminophen 500 MG Tablet 1000 MG PO ×3 (05:59→20:49)
[2019-07-31] MEDS: Famotidine 20 MG Tablet PO (08:01)
[2019-07-31] MEDS: Calcium Carbonate 500 MG Tablet PO ×2 (08:01→17:02)
[2019-07-31] MEDS: APIXABAN 5 MG TABLET PO ×2 (08:02→20:50)
[2019-07-31] MEDS: Multivitamins,Therapeutic Tablet 1 TABLET PO (08:02)
[2019-07-31] MEDS: Digoxin 125 MCG Tablet PO (08:02)
[2019-07-31] MEDS: Metoprolol Tartrate 50 MG Tablet PO ×2 (08:05→20:50)
[2019-07-31] MEDS: Polyethylene Glycol 3350 17 GM PACKET PO (08:05)
[2019-07-31] MEDS: Menthol/Lanolin/Calamine/Znox 113 GM Tube 1 APPLIC TOPICAL ×2 (08:07→21:15)
[2019-07-31] MEDS: Lisinopril 2.5 MG Tablet PO (12:04)
[2019-07-31] MEDS: oxyCODONE 5 MG Tablet PO ×2 (13:47→20:50)
--- NOTE | 2019-07-31 14:30 | NURSING ---
up and ambulating around halls bal walker and standby assist
--- NOTE | 2019-07-31 19:03 | NURSING ---
up and ambulating around halls with walker and standby assist
[2019-07-31] MEDS: clonazePAM 0.5 MG Tablet 0.25 MG PO (20:48)
[2019-07-31] MEDS: Imipramine HCl 25 MG Tablet 50 MG PO (20:50)
[2019-08-01 05:25] VITALS: BP 91/39; BP 96/44; BP 99/54; PULSE 82; PULSE 90; PULSE 95
[2019-08-01] MEDS: Acetaminophen 500 MG Tablet 1000 MG PO ×3 (05:48→21:42)
[2019-08-01] MEDS: Thyroid 15 MG Tablet 30 MG PO (05:48)
[2019-08-01] MEDS: Furosemide 20 MG Tablet PO ×2 (05:48→12:52)
[2019-08-01] MEDS: Polyethylene Glycol 3350 17 GM PACKET PO (08:05)
[2019-08-01] MEDS: Famotidine 20 MG Tablet PO (08:06)
[2019-08-01] MEDS: APIXABAN 5 MG TABLET PO ×2 (08:06→21:43)
[2019-08-01] MEDS: Calcium Carbonate 500 MG Tablet PO ×2 (08:06→17:10)
[2019-08-01] MEDS: Multivitamins,Therapeutic Tablet 1 TABLET PO (08:06)
[2019-08-01 08:07] VITALS: BP 91/39; PULSE 95
[2019-08-01] MEDS: Digoxin 125 MCG Tablet PO (08:07)
[2019-08-01 08:51] VITALS: BP 91/39; PULSE 95; RESP 18; TEMP 36.7; O2SAT 97
[2019-08-01] MEDS: Menthol/Lanolin/Calamine/Znox 113 GM Tube 1 APPLIC TOPICAL ×2 (10:01→21:38)
[2019-08-01 10:03] VITALS: BP 99/66; PULSE 104
[2019-08-01] MEDS: oxyCODONE 5 MG Tablet PO ×2 (10:03→22:37)
[2019-08-01] MEDS: Metoprolol Tartrate 50 MG Tablet PO ×2 (10:03→21:43)
[2019-08-01] MEDS: Lisinopril 2.5 MG Tablet PO (12:50)
--- NOTE | 2019-08-01 13:01 | PCM.PROGNOTE ---
Patient Problems: Active and Suspected Problems (Last Reviewed 07/28/19 @ 15:51 by Ofelia White DO) Hyponatremia (Acute) Subjective: Afebrile Vital signs are stable. Blood pressures are a little on the low side and have ranged from 91/39 to 109/59 over the past 24 hours. She denies dizziness, lightheadedness, chest pain, shortness of breath. Orthostatics were negative on 07/31/2019. She is maintaining appropriate oxygen saturation on room air. Oral intake is still not where I would like it to be. she is in negative fluid balance. she states her pain is adequately controlled. Denies N/V. Bowels are moving well Objective: General: Alert, Oriented x3, Cooperative, No apparent distress, - - pleasant and smiling...visiting with family Oral: No Gingival or Mucosal Lesions/ Ulcerations, Dry Mucosa Neck: Supple, Trachea Midline Lungs: Clear to auscultation, Normal air movement Cardiovascular: Normal S1, Normal S2, Irregular Rate - better rate control today, Murmur, No Gallop Abdomen: Bowel Sounds Present, Soft, Non Tender, Non-Distended Extremities: No edema Neurological: Cranial nerves II-XII grossly intact, Neuro grossly intact Psych/Mental Status: Normal Affect, Appropriate - Physical Exam Vitals/I&O's: Vital Signs Temp Pulse Resp BP Pulse Ox 98.0 F 104 H 18 99/66 97 08/01/19 08:51 08/01/19 10:03 08/01/19 08:51 08/01/19 10:03 08/01/19 08:51 Oxygen Delivery Method Room Air Weight: 94 lb 5.725 oz Body Mass Index (BMI) 15.0 Orthostatic Vital Signs Start: 07/31/19 05:25 Freq: q24h Status: Active Protocol: Activity Type Activity Date Activity User E-Sign Co-Sign Detail Recorded Client Recorded Date Recorded By Document 08/01/19 05:25 [facility] [id number] 08/01/19 06:23 OKW 08/01/19 05:25 Orthostatic Vitals Standing -Blood Pressure (90/60-120/80 mm Hg) 96/44 L -Extremity Use Right Arm -Pulse Rate (60-100 beats/min) 90 Sitting -Blood Pressure (90/60-120/80 mm Hg) 99/54 L -Extremity Use Right Arm -Pulse Rate (60-100 beats/min) 82 Lying -Blood Pressure (90/60-120/80 mm Hg) 91/39 L -Extremity Use Right Arm -Pulse Rate (60-100 beats/min) 95 Intake and Output for Last 24 Hours 07/30/19 07/31/19 08/01/19 23:59 23:59 23:59 Intake Total 700 / 700 360 / 360 Output Total 2800 / 2800 800 / 800 Balance -2100 / -2100 -440 / -440 Current Medications Acetaminophen (Tylenol) 1,000 mg PO Q8 [facility] Last Admin: 08/01/19 12:52 Dose: 1,000 mg Documented by: Apixaban (Eliquis) 5 mg PO BID [facility] Last Admin: 08/01/19 08:06 Dose: 5 mg Documented by: Bisacodyl (Dulcolax) 10 mg RECTAL .PRN X 1 PRN PRN Reason: Constipation Calamine/Phenol (Calmoseptine Ointment) 1 applic TOPICAL BID [facility]; Protocol Last Admin: 08/01/19 10:01 Dose: 1 applicatio Documented by: [facility]) [facility] Last Admin: 08/01/19 08:06 Dose: 500 mg Documented by: Cholecalciferol (Vitamin D) 2,000 unit PO DAILY [facility] Last Admin: 08/01/19 08:06 Dose: 2,000 unit Documented by: Clonazepam (Klonopin) 0.25 mg PO QHS [facility] Last Admin: 07/31/19 20:48 Dose: 0.25 mg Documented by: Digoxin (Lanoxin) 125 mcg PO DAILY [facility] Last Admin: 08/01/19 08:07 Dose: 125 mcg Documented by: Famotidine (Pepcid) 20 mg PO DAILY [facility] Last Admin: 08/01/19 08:06 Dose: 20 mg Documented by: Furosemide (Lasix) 20 mg PO BID@0600,1400 [facility] Last Admin: 08/01/19 12:52 Dose: 20 mg Documented by: Imipramine HCl (Tofranil) 50 mg PO QHS [facility] Last Admin: 07/31/19 20:50 Dose: 50 mg Documented by: Lisinopril (Zestril) 2.5 mg PO DAILY@1200 [facility] Last Admin: 08/01/19 12:50 Dose: 2.5 mg Documented by: Magnesium Hydroxide (Milk Of Magnesia) 30 ml PO .PRN X 1 PRN PRN Reason: Constipation Metoprolol Tartrate (Lopressor (Beta Steve)) 50 mg PO BID [facility] Last Admin: 08/01/19 10:03 Dose: 50 mg Documented by: Multivitamins (Multivitamin) [facility] Last Admin: 08/01/19 08:06 Dose: 1 tablet Documented by: Nutritional Formula (Lactose Free) (Ensure Enlive) 120 ml PO 4X/DAY [facility] Last Admin: 08/01/19 12:52 Dose: 120 ml Documented by: Oxycodone HCl (Oxyir) 5 mg PO Q6H PRN PRN PRN Reason: Pain Score 6-1010 Last Admin: 08/01/19 10:03 Dose: 5 mg Documented by: Polyethylene Glycol (Miralax) 17 gm PO DAILY [facility] Last Admin: 08/01/19 08:05 Dose: 17 gm Documented by: Potassium Chloride (K-Dur) [facility] meq [facility] Last Admin: 08/01/19 08:08 Dose: 20 meq Documented by: Thyroid ([place] Thyroid) 30 mg PO DAILY@0600 [facility] Last Admin: 08/01/19 05:48 Dose: 30 mg Documented by: Medical Necessity - Tobacco Use Smoking Status: Never smoker Tobacco Use: Non-smoker Assessment/Plan All Active Problems (Last Reviewed 07/28/19 @ 15:51 by Ofelia White DO) Hyponatremia (Acute) Fracture of femoral neck, left, closed (Acute) CAP (community acquired pneumonia) (Resolved) Hypotension (Resolved) Sepsis (Resolved) (HFpEF) heart failure with preserved ejection fraction (Ruled-out) Impressions: 1. Debility secondary to a nondisplaced subcapital fracture of the left hip 2. AF/chronic anticoagulation with Eliquis/non-rheumatic moderate - severe eccentric MR/chronic systolic congestive heart failure due to nonischemic cardiomyopathy with a 45% ejection fraction/diastolic dysfunction/left atrial enlargement/hypothyroidism/hypertension/anxiety/depression?mild to moderate pulmonary hypertension - Continue the home medications. doing well. The BP is dropping and she is in negative fluid balance - will the Lasix to 20 mg QAM adn DC the second dose daily The pt is a 79-year-old female with a PMH of nonischemic cardiomyopathy with a 45% ejection fraction, nonrheumatic moderate to severe mitral insufficiency, chronic anticoagulation with Eliquis, hypertension, anxiety/depression, hypothyroidism, persistent atrial fibrillation, diastolic dysfunction, left atrial enlargement and mild to moderate pulmonary hypertension with an echocardiogram in February 2019 showing a right ventricular systolic pressure estimated at 42 who was admitted to the Inpatient rehab unit at [facility] on 07/28/2019 for debility secondary to nondisplaced subcapital left hip fracture for greater than 3 hours of therapy daily with a goal of returning home at or near prior level of independence. The patient lives at home with her and has 6 steps to get into her home. She has never driven. The patient was independent with ADL's and using a cane as an assistive device prior to admission to the hospital. PLAN PT for gait stability OT for ADL's Analgesics as needed - Will schedule 1,000 mg of Tylenol Q 8H. PRN OXY IR Bowel protocol Fall precautions Assess for Anxiety/Depression and restart her home medications GI prophylaxis with Pepcid 20 mg p.o. daily DVT prophylaxis with Eliquis 5 mg p.o. twice daily for DVT prophylaxis and stroke prevention in a patient with atrial fibrillation Follow up with Dr. Goyo Romano following DC from Rehab Repeat an XRAY of the left hip on 08/04/[address] Carnes when it has been completed so he can view the XRAY Recheck CBC, CMP, MAG, dig level and a vitamin D level in the AM Calcium + D Recommend that she have a DEXA as an OP post DC to assess her bone density. No changes in meds today. she was encouraged to increase her fluid intake........or we could decrease the Lasix to once daily. If the HR remains a little high may give an extra dose of dig. Check orthostatics in the AM. I&O's ordered Code Visit Inpatient E&M: 63937 [facility] Hosp L1
--- NOTE | 2019-08-01 15:19 | NURSING ---
1130-dr keating in and aware of consistant low bp's with sbp<100 and no changes or perameters to bp meds. lisinopril given as ordered. pt asymptomatic and appears to be baseline. encouraged to drink plenty of p0's today
[2019-08-01 19:01] VITALS: BP 106/52; PULSE 107; RESP 16; TEMP 36.3; O2SAT 99
[2019-08-01] MEDS: Imipramine HCl 25 MG Tablet 50 MG PO (21:42)
[2019-08-01 21:43] VITALS: PULSE 105
[2019-08-01] MEDS: clonazePAM 0.5 MG Tablet 0.25 MG PO (21:50)
[2019-08-02] VITALS (8 sets, daily range): BP systolic 89–115; BP diastolic 52–76; PULSE 87–108; RESP 16; TEMP 36.6–36.7; O2SAT 99
[2019-08-02] MEDS: Acetaminophen 500 MG Tablet 1000 MG PO ×3 (04:58→21:20)
[2019-08-02] MEDS: Thyroid 15 MG Tablet 30 MG PO (04:59)
[2019-08-02] MEDS: Polyethylene Glycol 3350 17 GM PACKET PO (08:17)
[2019-08-02] MEDS: Metoprolol Tartrate 50 MG Tablet PO ×2 (08:17→21:21)
[2019-08-02] MEDS: Furosemide 20 MG Tablet PO (08:19)
[2019-08-02] MEDS: Calcium Carbonate 500 MG Tablet PO ×2 (08:19→16:05)
[2019-08-02] MEDS: Famotidine 20 MG Tablet PO (08:20)
[2019-08-02] MEDS: Multivitamins,Therapeutic Tablet 1 TABLET PO (08:20)
[2019-08-02] MEDS: APIXABAN 5 MG TABLET PO ×2 (08:21→21:25)
[2019-08-02] MEDS: Digoxin 125 MCG Tablet PO (08:24)
[2019-08-02] MEDS: Menthol/Lanolin/Calamine/Znox 113 GM Tube 1 APPLIC TOPICAL ×2 (08:30→21:25)
[2019-08-02] MEDS: oxyCODONE 5 MG Tablet PO ×2 (09:24→19:48)
[2019-08-02] MEDS: Lisinopril 2.5 MG Tablet PO (12:56)
[2019-08-02] MEDS: Imipramine HCl 25 MG Tablet 50 MG PO (21:21)
[2019-08-02] MEDS: clonazePAM 0.5 MG Tablet 0.25 MG PO (21:24)
[2019-08-03] MEDS: Acetaminophen 500 MG Tablet 1000 MG PO ×3 (06:00→21:48)
[2019-08-03] MEDS: Thyroid 15 MG Tablet 30 MG PO (06:01)
--- NOTE | 2019-08-03 06:12 | NURSING ---
PT STATES SHE DOES NOT WANT TO SHOWER TODAY SHE SHOWERED YESTERDAY MORNING. PT TO CLEAN UP AT SINK.
[2019-08-03 07:00] VITALS: BP 106/52; PULSE 97; RESP 12; TEMP 36.9; O2SAT 98
[2019-08-03] MEDS: Calcium Carbonate 500 MG Tablet PO ×2 (07:50→16:02)
[2019-08-03] MEDS: APIXABAN 5 MG TABLET PO ×2 (07:50→21:50)
[2019-08-03] MEDS: Multivitamins,Therapeutic Tablet 1 TABLET PO (07:50)
[2019-08-03 07:52] VITALS: PULSE 97
[2019-08-03] MEDS: Digoxin 125 MCG Tablet PO (07:52)
[2019-08-03] MEDS: Furosemide 20 MG Tablet PO (07:52)
[2019-08-03 07:54] VITALS: PULSE 97
[2019-08-03] MEDS: Metoprolol Tartrate 50 MG Tablet PO ×2 (07:54→21:49)
[2019-08-03] MEDS: Menthol/Lanolin/Calamine/Znox 113 GM Tube 1 APPLIC TOPICAL ×2 (07:55→21:50)
[2019-08-03] MEDS: Famotidine 20 MG Tablet PO (09:49)
[2019-08-03] MEDS: oxyCODONE 5 MG Tablet PO ×2 (09:49→22:10)
--- NOTE | 2019-08-03 11:36 | PCM.PN.HOSP ---
Patient Problems: Active and Suspected Problems (Last Reviewed 07/28/19 @ 15:51 by Ofelia White DO) Hyponatremia (Acute) Reason for Visit: Follow-up for left hip fracture. Subjective: Patient still has weakness on the right hip. No hip joint pain at rest. Denies constipation. Had bowel movement today. Vitals/I&O's: Vital Signs Temp Pulse Resp BP Pulse Ox 98.4 F 97 12 106/52 L 98 08/03/19 07:00 08/03/19 07:54 08/03/19 07:00 08/03/19 07:00 08/03/19 07:00 Oxygen Delivery Method Room Air Weight: 95 lb 6.4 oz Body Mass Index (BMI) 15.0 Intake and Output for Last 24 Hours 08/01/19 08/02/19 08/03/19 23:59 23:59 23:59 Intake Total 1940 / 1940 120 / 120 400 / 400 Output Total 1550 / 1550 2450 / 2450 600 / 600 Balance 390 / 390 -2330 / -2330 -200 / -200 General: Alert, Oriented x3, Cooperative HEENT: Atraumatic, PERRLA, EOMI, Normocephalic Neck: Supple, No JVD, Negative Carotid Bruits Lungs: Clear to auscultation, Normal air movement, No rhonchi, No wheeze, No rales Cardiovascular: Regular rate, Regular Rhythm, Normal S1, Normal S2, No murmurs Abdomen: Bowel Sounds Present, Soft, Non Tender, Non-Distended Extremities: No edema, Capillary Refill Less than 3 Seconds Skin: No rashes, No breakdown Musculoskeletal: No Tenderness to Palpation of Joints or Extremities, Arthritic Changes Neurological: Cranial nerves II-XII grossly intact, Deep Tendon Reflexes 2+/4 and Symmetrical, Neuro grossly intact Psych/Mental Status: Normal Affect, Appropriate Current Medications Acetaminophen (Tylenol) 1,000 mg PO Q8 [facility] Last Admin: 08/03/19 06:00 Dose: 1,000 mg Documented by: Apixaban (Eliquis) 5 mg PO BID [facility] Last Admin: 08/03/19 07:50 Dose: 5 mg Documented by: Bisacodyl (Dulcolax) 10 mg RECTAL .PRN X 1 PRN PRN Reason: Constipation Calamine/Phenol (Calmoseptine Ointment) 1 applic TOPICAL BID [facility]; Protocol Last Admin: 08/03/19 07:55 Dose: 1 applicatio Documented by: Calcium Carbonate (Tums) [facility] Last Admin: 08/03/19 07:50 Dose: 500 mg Documented by: Cholecalciferol (Vitamin D) 2,000 unit PO DAILY [facility] Last Admin: 08/03/19 07:49 Dose: 2,000 unit Documented by: Clonazepam (Klonopin) 0.25 mg PO QHS [facility] Last Admin: 08/02/19 21:24 Dose: 0.25 mg Documented by: Digoxin (Lanoxin) 125 mcg PO DAILY [facility] Last Admin: 08/03/19 07:52 Dose: 125 mcg Documented by: Famotidine (Pepcid) 20 mg PO DAILY [facility] Last Admin: 08/03/19 09:49 Dose: 20 mg Documented by: Furosemide (Lasix) 20 mg PO DAILY [facility] Last Admin: 08/03/19 07:52 Dose: 20 mg Documented by: Imipramine HCl (Tofranil) 50 mg PO QHS [facility] Last Admin: 08/02/19 21:21 Dose: 50 mg Documented by: Lisinopril (Zestril) 2.5 mg PO DAILY@1200 [facility] Last Admin: 08/02/19 12:56 Dose: 2.5 mg Documented by: Magnesium Hydroxide (Milk Of Magnesia) 30 ml PO .PRN X 1 PRN PRN Reason: Constipation Metoprolol Tartrate (Lopressor (Beta Steve)) 50 mg PO BID [facility] Last Admin: 08/03/19 07:54 Dose: 50 mg Documented by: Multivitamins (Multivitamin) [facility] tablet [facility] Last Admin: 08/03/19 07:50 Dose: 1 tablet Documented by: Nutritional Formula (Lactose Free) (Ensure Enlive) 120 ml PO 4X/DAY [facility] Last Admin: 08/03/19 09:49 Dose: 120 ml Documented by: Oxycodone HCl (Oxyir) 5 mg PO Q6H PRN PRN PRN Reason: Pain Score 6-10/10 Last Admin: 08/03/19 09:49 Dose: 5 mg Documented by: Polyethylene Glycol (Miralax) 17 gm PO DAILY [facility] Last Admin: 08/03/19 07:54 Dose: Not Given Documented by: Potassium Chloride (K-Dur) 20 meq PO DAILY [facility] Last Admin: 08/03/19 07:50 Dose: 20 meq Documented by: Thyroid ([place] Thyroid) 30 mg PO DAILY@0600 [facility] Last Admin: 08/03/19 06:01 Dose: 30 mg Documented by: STROKE Vital Signs/Narrative: Vital Signs Pulse 08/03/19 07:54 97 08/03/19 07:52 97 Medical Necessity - Tobacco Use Smoking Status: Never smoker Tobacco Use: Non-smoker Assessment/Plan All Active Problems (Last Reviewed 07/28/19 @ 15:51 by Ofelia White DO) Hyponatremia (Acute) Fracture of femoral neck, left, closed (Acute) CAP (community acquired pneumonia) (Resolved) Hypotension (Resolved) Sepsis (Resolved) (HFpEF) heart failure with preserved ejection fraction (Ruled-out) The pt is a 79-year-old female with a PMH of nonischemic cardiomyopathy,nonrheumatic moderate to severe mitral insufficiency, hypertension, anxiety/depression, hypothyroidism, persistent atrial fibrillation on Eliquis was admitted after she had nondisplaced subcapital 8 left hip fracture. 1. Debility secondary to nondisplaced subcapital fracture of left hip: PT, OT. Patient currently cooperating with physical therapy on walker. There is improvement on muscle strength on right hip. Continue vitamin D, calcium carbonate.Follow up with Dr. Goyo Carnes following DC from Rehab Vitamin D is 64. Repeat an XRAY of the left hip on 08/04/[address] Carnes when it has been completed . Recommend that she have a DEXA as an OP post DC to assess her bone density. 2. Nonischemic cardiomyopathy, chronic systolic and diastolic heart failure, moderate to severe MR and persistent A. fib on Xarelto and mild pulmonary hypertension: Patient had echo done in February 2019 and reported as EF 45% with mild global LV systolic dysfunction, LA moderately enlarged, moderate 3+ MR with equivocal MVP. Mild TR, mild pulmonary insufficiency. RVSP 42 mmHg. Continue patient cardiac medications. Patient is on digoxin, Eliquis, Lasix, lisinopril, and metoprolol. Labs reviewed electrolytes in acceptable range. K4.3. Digoxin level 0.87. 3. Hypertension and hypothyroidism: Patient on thyroid [place]. Blood pressure is usually on the lower side, 106/52. Patient does not have symptoms of dizziness, lightheadedness or hypotension 4. Mild anxiety and depression: Patient on imipramine Bowel and bladder care: On MiraLAX. Active Medications Acetaminophen (Tylenol) 1,000 mg PO Q8 [facility] Last Admin: 08/03/19 06:00 Dose: 1,000 mg Documented by: Apixaban (Eliquis) 5 mg PO BID [facility] Last Admin: 08/03/19 07:50 Dose: 5 mg Documented by: Bisacodyl (Dulcolax) 10 mg RECTAL .PRN X 1 PRN PRN Reason: Constipation Calamine/Phenol (Calmoseptine Ointment) 1 applic TOPICAL BID [facility]; Protocol Last Admin: 08/03/19 07:55 Dose: 1 applicatio Documented by: Calcium Carbonate (Tums) [facility] Last Admin: 08/03/19 07:50 Dose: 500 mg Documented by: Cholecalciferol (Vitamin D) 2,000 unit PO DAILY [facility] Last Admin: 08/03/19 07:49 Dose: 2,000 unit Documented by: Clonazepam (Klonopin) 0.25 mg PO QHS [facility] Last Admin: 08/02/19 21:24 Dose: 0.25 mg Documented by: Digoxin (Lanoxin) 125 mcg PO DAILY [facility] Last Admin: 08/03/19 07:52 Dose: 125 mcg Documented by: Famotidine (Pepcid) 20 mg PO DAILY [facility] Last Admin: 08/03/19 09:49 Dose: 20 mg Documented by: Furosemide (Lasix) 20 mg PO DAILY [facility] Last Admin: 08/03/19 07:52 Dose: 20 mg Documented by: Imipramine HCl (Tofranil) 50 mg PO QHS [facility] Last Admin: 08/02/19 21:21 Dose: 50 mg Documented by: Lisinopril (Zestril) 2.5 mg PO DAILY@1200 [facility] Last Admin: 08/02/19 12:56 Dose: 2.5 mg Documented by: Magnesium Hydroxide (Milk Of Magnesia) 30 ml PO .PRN X 1 PRN PRN Reason: Constipation Metoprolol Tartrate (Lopressor (Beta Steve)) 50 mg PO BID [facility] Last Admin: 08/03/19 07:54 Dose: 50 mg Documented by: Multivitamins (Multivitamin) 1 tablet PO [facility] Last Admin: 08/03/19 07:50 Dose: 1 tablet Documented by: Nutritional Formula (Lactose Free) (Ensure Enlive) 120 ml PO 4X/DAY [facility] Last Admin: 08/03/19 09:49 Dose: 120 ml Documented by: Oxycodone HCl (Oxyir) 5 mg PO Q6H PRN PRN PRN Reason: Pain Score 6-10 Last Admin: 08/03/19 09:49 Dose: 5 mg Documented by: Polyethylene Glycol (Miralax) 17 gm PO DAILY [facility] Last Admin: 08/03/19 07:54 Dose: Not Given Documented by: Potassium Chloride (K-Dur) 20 meq PO DAILYCM [facility] Last Admin: 08/03/19 07:50 Dose: 20 meq Documented by: Thyroid ([place] Thyroid) 30 mg PO DAILY@0600 [facility] Last Admin: 08/03/19 06:01 Dose: 30 mg Documented by: Code Visit Inpatient E&M: [id number] Subs Hosp L2
[2019-08-03] MEDS: Lisinopril 2.5 MG Tablet PO (12:47)
[2019-08-03 21:08] VITALS: BP 121/90; PULSE 101; RESP 16; TEMP 36.3; O2SAT 100
[2019-08-03 21:49] VITALS: BP 121/90; PULSE 101
[2019-08-03] MEDS: clonazePAM 0.5 MG Tablet 0.25 MG PO (21:49)
[2019-08-03] MEDS: Imipramine HCl 25 MG Tablet 50 MG PO (21:49)
[2019-08-04] MEDS: Acetaminophen 500 MG Tablet 1000 MG PO ×3 (06:02→20:36)
[2019-08-04] MEDS: Thyroid 15 MG Tablet 30 MG PO (06:03)
[2019-08-04 06:30] LABS: Anion Gap 2 (5-15); BUN 15 mg/dL (7-18); BUN/Creat Ratio 21.6 RATIO (10-20); Chloride 98 mmol/L (98-107); Creatinine, Serum 0.69 mg/dL (0.55-1.02); EST Glomerular Filtration Rate 87 mL/min (>60); Est Glom Filt Rate - Afr Amer 105 mL/min (>60); Estimated Creatinine Clearance 32.18 ml/min; Glucose 90 mg/dL (74-106); Potassium 4.4 mmol/L (3.5-5.1); Sodium Level 134 mmol/L (136-145); T4 Free Direct 0.83 ng/dL (0.76-1.46); Thyroid Stim Hormone (TSH) 3.54 uIU/mL (0.358-3.74)
[2019-08-04 07:29] VITALS: BP 92/59; PULSE 97; RESP 18; TEMP 36.5; O2SAT 97
[2019-08-04 07:48] VITALS: PULSE 97
[2019-08-04] MEDS: Digoxin 125 MCG Tablet PO (07:48)
[2019-08-04] MEDS: APIXABAN 5 MG TABLET PO ×2 (07:48→17:04)
[2019-08-04] MEDS: Multivitamins,Therapeutic Tablet 1 TABLET PO (07:48)
[2019-08-04] MEDS: Famotidine 20 MG Tablet PO (07:48)
[2019-08-04] MEDS: Metoprolol Tartrate 50 MG Tablet PO ×2 (07:48→17:04)
[2019-08-04] MEDS: Furosemide 20 MG Tablet PO (07:48)
[2019-08-04] MEDS: Calcium Carbonate 500 MG Tablet PO ×2 (07:48→17:03)
[2019-08-04] MEDS: Menthol/Lanolin/Calamine/Znox 113 GM Tube 1 APPLIC TOPICAL ×2 (07:49→20:37)
--- NOTE | 2019-08-04 08:31 | RAD_ITS ---
STUDY: X-RAY - PELVIS AND LEFT HIP REASON FOR EXAM: Female, 79 years old. No left hip fracture. TECHNIQUE: 3 views of the pelvis and hip. COMPARISON: Comparison is made with prior examination dated July 25, 2019. FINDINGS: There is a non-specific bowel gas pattern. Normal visualized soft tissue structures. Normal bilateral iliac wings, sacroiliac joints and visualized sacrum. Normal bilateral superior and inferior pubic rami. Normal pubic symphysis. Normal bilateral ischial tuberosities. Stable appearance of the left subcapital fracture. Normal acetabulum. Normal hip joint. RAD/HIP, UNI W/ Pelvis 2-3 Views IMPRESSION: Stable appearance of the nondisplaced impacted left subcapital fracture of the proximal femur. Electronically Signed: Josiah Araujo, at 13:39 EST , Service support ,
--- NOTE | 2019-08-04 08:43 | PN_ITS ---
Patient Problems: Active and Suspected Problems (Last Reviewed 07/28/19 @ 15:51 by Ofelia White DO) Hyponatremia (Acute) Objective: Afebile VSS-heart rate is mostly controlled. Blood pressures fluctuate somewhat however she denies any dizziness/lightheadedness and tolerates the lower blood pressures without symptoms. Maintaining appropriate oxygen saturation on RA Oral intake is improved All lab was personally reviewed. Sodium remains mildly decreased at 134 and the serum bicarb is 34. BUN has improved and is 15 today with a creatinine of 0.69. Discussed with nursing - no problems that need addressed Reviewed the PT/OT notes Medication list reviewed. Hospitalist notes reviewed She is complaining of left knee pain. This increases with weight bearing. she had a hip and pelvis XRAY today and we are awaiting the official report. 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 Wt is up 0.6 KG. Intake at supper is generally poor. Ensure ordered with supper - Physical Exam Vitals/I&O's: Vital Signs Temp Pulse Resp BP Pulse Ox 97.7 F L 97 18 92/59 L 97 08/04/19 07:29 08/04/19 07:48 08/04/19 07:29 08/04/19 07:29 08/04/19 07:29 Oxygen Delivery Method Room Air Weight: 95 lb 10.89 oz Body Mass Index (BMI) 15.0 Intake and Output for Last 24 Hours 08/02/19 08/03/19 08/04/19 23:59 23:59 23:59 Intake Total 120 / 120 2780 / 2780 490 / 490 Output Total 2450 / 2450 2600 / 2600 800 / 800 Balance -2330 / -2330 180 / 180 -310 / -310 General: Alert, Oriented x3, Cooperative, No apparent distress Oral: Moist Mucosa, No Gingival or Mucosal Lesions/ Ulcerations Neck: No JVD Lungs: Clear to auscultation, Normal air movement Cardiovascular: Normal S1, Normal S2, Irregular Rate - with an increased resting HR, No Gallop Abdomen: Bowel Sounds Present, Soft, Non Tender, Non-Distended Extremities: No edema Skin: No rashes, No breakdown Neurological: Cranial nerves II-XII grossly intact, Neuro grossly intact Psych/Mental Status: Normal Affect, Appropriate Laboratory Results 08/04/19 05:45: Sodium 134 L, Potassium 4.4, Chloride 98, Carbon Dioxide 34.0 H, Anion Gap 2 L, BUN 15, Creatinine 0.69, Estim Creat Clear Calc 32.18, Est GFR (MDRD) Af Amer 105, Est GFR (MDRD) Non-Af 87, BUN/Creatinine Ratio 21.6 H, Glucose 90, Calcium 9.0, TSH 3.54, Free T4 0.83 Current Medications Acetaminophen (Tylenol) 1,000 mg PO Q8 [facility] Last Admin: 08/04/19 06:02 Dose: 1,000 mg Documented by: Apixaban (Eliquis) 5 mg PO BID [facility] Last Admin: 08/04/19 07:48 Dose: 5 mg Documented by: Bisacodyl (Dulcolax) 10 mg RECTAL .PRN X 1 PRN PRN Reason: Constipation Calamine/Phenol (Calmoseptine Ointment) 1 applic TOPICAL BID [facility]; Protocol Last Admin: 08/04/19 07:49 Dose: 1 applicatio Documented by: [facility] Last Admin: 08/04/19 07:48 Dose: 500 mg Documented by: Cholecalciferol (Vitamin D) 2,000 unit PO DAILY [facility] Last Admin: 08/04/19 07:48 Dose: 2,000 unit Documented by: Clonazepam (Klonopin) 0.25 mg PO QHS [facility] Last Admin: 08/03/19 21:49 Dose: 0.25 mg Documented by: Digoxin (Lanoxin) 125 mcg PO DAILY [facility] Last Admin: 08/04/19 07:48 Dose: 125 mcg Documented by: Famotidine (Pepcid) 20 mg PO DAILY [facility] Last Admin: 08/04/19 07:48 Dose: 20 mg Documented by: Furosemide (Lasix) 20 mg PO DAILY [facility] Last Admin: 08/04/19 07:48 Dose: 20 mg Documented by: Imipramine HCl (Tofranil) 50 mg PO QHS [facility] Last Admin: 08/03/19 21:49 Dose: 50 mg Documented by: Lisinopril (Zestril) 2.5 mg PO DAILY@1200 [facility] Last Admin: 08/03/19 12:47 Dose: 2.5 mg Documented by: Magnesium Hydroxide (Milk Of Magnesia) 30 ml PO .PRN X 1 PRN PRN Reason: Constipation Metoprolol Tartrate (Lopressor (Beta Steve)) 50 mg PO BID [facility] Last Admin: 08/04/19 07:48 Dose: 50 mg Documented by: [facility]it[facility]itamin) [facility] Last Admin: 08/04/19 07:48 Dose: 1 tablet Documented by: Nutritional Formula (Lactose Free) (Ensure Enlive) 120 ml PO 4X/DAY [facility] Last Admin: 08/04/19 07:51 Dose: 120 ml Documented by: Oxycodone HCl (Oxyir) 5 mg PO Q6H PRN PRN PRN Reason: Pain Score 6-1010 Last Admin: 08/03/19 22:10 Dose: 5 mg Documented by: Polyethylene Glycol (Miralax) 17 gm PO DAILY [facility] Last Admin: 08/04/19 07:49 Dose: Not Given Documented by: Potassium Chloride (K-Dur) [facility] Last Admin: 08/04/19 07:48 Dose: 20 meq Documented by: Thyroid ([place] Thyroid) 30 mg PO DAILY@0600 [facility] Last Admin: 08/04/19 06:03 Dose: 30 mg Documented by: Medical Necessity - Tobacco Use Smoking Status: Never smoker Tobacco Use: Non-smoker Assessment/Plan All Active Problems (Last Reviewed 07/28/19 @ 15:51 by Ofelia White DO) Hyponatremia (Acute) Fracture of femoral neck, left, closed (Acute) CAP (community acquired pneumonia) (Resolved) Hypotension (Resolved) Sepsis (Resolved) (HFpEF) heart failure with preserved ejection fraction (Ruled-out) Impressions: 1. Debility secondary to a nondisplaced subcapital fracture of the left hip 2. AF/chronic anticoagulation with Eliquis/non-rheumatic moderate - severe eccentric MR/chronic systolic congestive heart failure due to nonischemic cardiomyopathy with a 45% ejection fraction/diastolic dysfunction/left atrial enlargement/hypothyroidism/hypertension/anxiety/depression?mild to moderate pulmonary hypertension - Continue the home medications. 3. Dehydration 4. Malnutrition - moderate to severe 5. HR is not adequately controlled....will change the Digoxin to 0.125 every day except Sunday and Sunday she will get 0.25 mg. 6. Left knee pain - more likely than not due to OA with Increased weight on the LLE since she is toe touch wt bearing on the RLE doing well with the decrease in the Lasix to 20 mg daily rather than BID. No sx of CHF...no edema and the lungs are CTA. She is lying flat in bed with no SOB. No conversational dyspnea Trial of Megace to see if the appetite improves DALJIT wrap to the left knee when she is ambulating for support....If this does not help will likely try Zostrix. The pt is a 79-year-old female with a PMH of nonischemic cardiomyopathy with a 45% ejection fraction, nonrheumatic moderate to severe mitral insufficiency, chronic anticoagulation with Eliquis, hypertension, anxiety/depression, hypothyroidism, persistent atrial fibrillation, diastolic dysfunction, left atrial enlargement and mild to moderate pulmonary hypertension with an echocardiogram in February 2019 showing a right ventricular systolic pressure estimated at 42 who was admitted to the Inpatient rehab unit at [facility] on 07/28/2019 for debility secondary to nondisplaced subcapital left hip fracture for greater than 3 hours of therapy daily with a goal of returning home at or near prior level of independence. The patient lives at home with her and has 6 steps to get into her home. She has never driven. The patient was independent with ADL's and using a cane as an assistive device prior to admission to the hospital. PLAN PT for gait stability OT for ADL's Analgesics as needed - Will schedule 1,000 mg of Tylenol Q 8H. PRN OXY IR Bowel protocol Fall precautions Assess for Anxiety/Depression and restart her home medications GI prophylaxis with Pepcid 20 mg p.o. daily DVT prophylaxis with Eliquis 5 mg p.o. twice daily for DVT prophylaxis and stroke prevention in a patient with atrial fibrillation Follow up with Dr. Goyo Romano following DC from Rehab Repeat an XRAY of the left hip on 08/04/[address] Carnes when it has been completed so he can view the XRAY Recheck CBC, CMP, MAG, dig level and a vitamin D level in the AM Calcium + D Recommend that she have a DEXA as an OP post DC to assess her bone density. No changes in meds today. she was encouraged to increase her fluid intake........or we could decrease the Lasix to once daily. If the HR remains a little high may give an extra dose of dig. Check orthostatics in the AM. I&O's ordered Code Visit Inpatient E&M: 15596 Subs Hosp L2
--- NOTE | 2019-08-04 11:36 | CASEMGMT ---
Addendum entered by Rosanne Santiago 08/06/19 16:50: Pt chose [facility] - referral made. Addendum entered by Rosanne Santiago 08/06/19 13:51: Patient chose [facility] - referral made. Original Note: Social Work IDT met with patient and daughter for Team Meeting. Discussed patient's progress in therapy. Pt is SBA for transfers, walking 175 ft with FWW SBA to CGA with cues to maintain TTWBS, completed 3 steps with 2 HR at SBA to CGA but could not maintain TTWBS, SBA toileting, bathing and dressing - only needed assistance to tie left shoe, SBA for meal prep with FWW w/tray. Completed repeat hip xray - awaiting results. Physician DC's lasiks, wanting to lower HR, pt improving with hydration which has improved kidney function. Explained Medicare ELOS of 10 days with DC 08/07. Family and pt comfortable to DC home with recommended HHC. Provided list of HHC agencies to choose for PT/OT/SN. No DME needs. will continue to follow. Plan: DC home with family support 08/07 with HHC PT/OT/SN DANNY EspinozaW
[2019-08-04] MEDS: Lisinopril 2.5 MG Tablet PO (12:21)
--- NOTE | 2019-08-04 14:00 | NURSING ---
Dr. Carnes office aware to review xray that was done today.
[2019-08-04 17:04] VITALS: PULSE 92
[2019-08-04] MEDS: oxyCODONE 5 MG Tablet PO (19:19)
[2019-08-04 19:27] VITALS: BP 101/49; PULSE 99; RESP 18; TEMP 36.6; O2SAT 95
[2019-08-04] MEDS: clonazePAM 0.5 MG Tablet 0.25 MG PO (20:34)
[2019-08-04] MEDS: Imipramine HCl 25 MG Tablet 50 MG PO (20:37)
[2019-08-05] MEDS: Thyroid 15 MG Tablet 30 MG PO (05:52)
[2019-08-05] MEDS: Acetaminophen 500 MG Tablet 1000 MG PO ×3 (05:53→21:42)
[2019-08-05 07:21] VITALS: BP 96/61; PULSE 107; RESP 17; TEMP 36.6; O2SAT 98
[2019-08-05] MEDS: Polyethylene Glycol 3350 17 GM PACKET PO (08:13)
[2019-08-05 08:14] VITALS: BP 96/61; PULSE 107
[2019-08-05] MEDS: Furosemide 20 MG Tablet PO (08:14)
[2019-08-05] MEDS: Metoprolol Tartrate 50 MG Tablet PO ×2 (08:14→16:46)
[2019-08-05 08:15] VITALS: BP 96/61; PULSE 107
[2019-08-05] MEDS: Famotidine 20 MG Tablet PO (08:15)
[2019-08-05] MEDS: Digoxin 125 MCG Tablet PO (08:15)
[2019-08-05] MEDS: Calcium Carbonate 500 MG Tablet PO ×2 (08:15→16:46)
[2019-08-05] MEDS: Multivitamins,Therapeutic Tablet 1 TABLET PO (08:15)
[2019-08-05] MEDS: APIXABAN 5 MG TABLET PO ×2 (08:15→16:47)
[2019-08-05] MEDS: oxyCODONE 5 MG Tablet PO ×2 (08:19→21:54)
[2019-08-05] MEDS: Menthol/Lanolin/Calamine/Znox 113 GM Tube 1 APPLIC TOPICAL ×2 (08:21→21:43)
--- NOTE | 2019-08-05 11:14 | PCM.PN.BLA ---
Progress Note Afebile VSS Maintaining appropriate oxygen saturation on RA Oral intake is better however appetite is decreased and she especially has trouble eating with supper. Discussed with nursing - no problems that need addressed Reviewed the PT/OT/ST notes Medication list reviewed. The DALJIT to the left knee is helping when she ambulates. Will need to see if it helps with stair climbing......she says it hurts much worse with stairs. She was able to do 2 steps twice on 08/04/19. I discussed reservations about her being able to navigate the steps into the trailer at home with Yris from PT and she had the pt go up the steps backwards and she did fine today. Alert, appropriate. Lungs - CTA, lying flat in bed with no dyspnea. Heart irregular with increased resting HR, denies lightheadedness. No edema. The left knee is not swollen and it is not erythematous. Impressions 1. OA Left knee - pain is better with the Application of the DALJIT Wrap. 2. Malnutrition - Megace has been started BID to help stimulate the appetite. Scheduled for discharge on . Continue PT/OT STROKE Vital Signs/Narrative: Vital Signs Temp Pulse Resp BP Pulse Ox 08/05/19 08:15 107 H 96/61 08/05/19 08:14 107 H 08/05/19 07:21 98 F 107 H 17 98 Code Visit Inpatient E&M: 74605 Subs Hosp L1
[2019-08-05] MEDS: Lisinopril 2.5 MG Tablet PO (12:27)
[2019-08-05 16:46] VITALS: BP 102/54; PULSE 92
[2019-08-05 20:21] VITALS: BP 96/64; PULSE 86; RESP 18; TEMP 36.6; O2SAT 98
[2019-08-05] MEDS: Megestrol 40 MG Tablet PO (21:45)
[2019-08-05] MEDS: clonazePAM 0.5 MG Tablet 0.25 MG PO (21:53)
--- NOTE | 2019-08-05 22:00 | NURSING ---
Pt refused tofranil states she does not take it. Explained she had it last night but she doesnt wish to take it tonight.
[2019-08-06] MEDS: Acetaminophen 500 MG Tablet 1000 MG PO ×3 (06:01→21:21)
[2019-08-06] MEDS: Thyroid 15 MG Tablet 30 MG PO (06:02)
[2019-08-06] MEDS: Polyethylene Glycol 3350 17 GM PACKET PO (08:31)
[2019-08-06] MEDS: Multivitamins,Therapeutic Tablet 1 TABLET PO (08:32)
[2019-08-06] MEDS: Megestrol 40 MG Tablet PO ×2 (08:32→21:22)
[2019-08-06] MEDS: APIXABAN 5 MG TABLET PO ×2 (08:32→17:17)
[2019-08-06 08:33] VITALS: PULSE 90
[2019-08-06] MEDS: Metoprolol Tartrate 50 MG Tablet PO ×2 (08:33→17:17)
[2019-08-06] MEDS: Calcium Carbonate 500 MG Tablet PO ×2 (08:33→17:17)
[2019-08-06 08:34] VITALS: PULSE 90
[2019-08-06] MEDS: Furosemide 20 MG Tablet PO (08:34)
[2019-08-06] MEDS: Famotidine 20 MG Tablet PO (08:34)
[2019-08-06] MEDS: Digoxin 125 MCG Tablet PO (08:34)
[2019-08-06] MEDS: Menthol/Lanolin/Calamine/Znox 113 GM Tube 1 APPLIC TOPICAL ×2 (08:40→21:24)
[2019-08-06 09:12] VITALS: BP 100/52; PULSE 90; RESP 16; TEMP 36.4; O2SAT 100
[2019-08-06] MEDS: oxyCODONE 5 MG Tablet PO ×2 (10:14→21:27)
[2019-08-06] MEDS: Lisinopril 2.5 MG Tablet PO (13:00)
[2019-08-06 17:17] VITALS: PULSE 104
[2019-08-06 19:34] VITALS: BP 94/49; PULSE 95; RESP 16; TEMP 36.8; O2SAT 100
[2019-08-06] MEDS: clonazePAM 0.5 MG Tablet 0.25 MG PO (21:22)
[2019-08-06] MEDS: Imipramine HCl 25 MG Tablet 50 MG PO (21:22)
[2019-08-07] MEDS: Acetaminophen 500 MG Tablet 1000 MG PO (06:38)
[2019-08-07] MEDS: Thyroid 15 MG Tablet 30 MG PO (06:38)
[2019-08-07 08:37] VITALS: BP 116/62; PULSE 108
[2019-08-07] MEDS: Metoprolol Tartrate 50 MG Tablet PO (08:37)
[2019-08-07] MEDS: Digoxin 125 MCG Tablet PO (08:37)
[2019-08-07] MEDS: Polyethylene Glycol 3350 17 GM PACKET PO (08:38)
[2019-08-07] MEDS: APIXABAN 5 MG TABLET PO (08:38)
[2019-08-07] MEDS: Furosemide 20 MG Tablet PO (08:38)
[2019-08-07] MEDS: Calcium Carbonate 500 MG Tablet PO (08:38)
[2019-08-07] MEDS: Multivitamins,Therapeutic Tablet 1 TABLET PO (08:38)
[2019-08-07] MEDS: Megestrol 40 MG Tablet PO (08:38)
[2019-08-07] MEDS: Famotidine 20 MG Tablet PO (08:38)
[2019-08-07] MEDS: oxyCODONE 5 MG Tablet PO (08:44)
[2019-08-07 08:48] VITALS: BP 116/62; PULSE 108; RESP 12; TEMP 36.4; O2SAT 100
[2019-08-07] MEDS: Menthol/Lanolin/Calamine/Znox 113 GM Tube 1 APPLIC TOPICAL (10:17)
--- NOTE | 2019-08-07 11:38 | DCINST_ITS ---
- Discharge Diagnoses Current Active Problems: Current Active and Chronic Problems (Last Reviewed 07/28/19 @ 15:51 by Ofelia White DO) Mitral insufficiency (Chronic) Hyponatremia (Acute) Pulmonary hypertension (Chronic) PA systolic was estimated at 42 in February 2019 on echocardiogram Diastolic dysfunction (Chronic) You will use the following diet at home:: No restrictions Your food should be the consistency of: Regular Your liquids should be the consistency of: Regular/Thin Discharge Activity: May Not Drive, Use Walker Weight Bearing Status: Toe touch weight bearing - left leg Call your doctor if you observe: Fever of 101 or Higher, Numbness or Tingling - in the left leg, Inability to urinate, Inability to have a bowel movement, Shortness of breath, Dizziness, Fainting spells, Swelling in the ankles, Chest pain, Increased palpitations (irregular heartbeat), Calf discomfort, Uncontrolled pain Instructions: Understanding Hip Fractures, Hip Safety: Mastering Daily Tasks Additional Instructions: 1. You did great in therapy and you will continue to get therapy at home to strengthen your muscles and improve gait stability. I am glad the Megace is helping to increase your appetite. You are malnourished and when this happens the immune sytem does not work as well to prevent infection and bones and wounds do not heal well. I gave you a prescription for Megace to take twice a day.....Dr. Sen can renew the prescription in 1 month if it is working. 2. I have also given you prescriptions for Oxycodone for pain and Zostrix cream to help with the arthritis pain in the left knee. Always make sure the skin is dry before you apply the Zostrix.......if the skin is wet it will burn. If the medication gautam and you can not tolerate Dr. Sen can write a prescription for EMLA cream.....apply this first to numb the skin and then wait 10 minutes and apply the EMLA. 3. You were dehydrated when you came to the rehab floor and you were lightheaded due to low blood pressure. The Furosemide (Lasix) was decreased to 20 mg once daily in the morning and your BP is better and no more lightheadedness. On the morning of DC your lungs are clear and you have no edema in your legs. I will send a copy of your discharge summary to Dr. Pereira so he will know we changed the dose of the Furosemide. I will also send a copy of the discharge summary to Dr. Sen and to Dr. Ba. 4. It was a pleasure to meet you Maribel. I hope you are happy with the care you recieved in rehab. If there is anything you think we need to improve on please let us know so that we can do a better job in the future with new patients. Have a VERY HAPPY Holiday! Pending Tests on Discharge: none Allergies/Adverse Reactions: Allergies No Known Allergies Allergy (Verified 07/25/19 16:29) Medications to take at Discharge polyethylene glycol 3350 17 gram oral powder packet 17 g PO DAILY 06/20/18 Digoxin 125 mcg PO DAILY 02/24/19 Multivitamin with Minerals [Multiple Vitamin] 1 tab PO DAILY 02/24/19 thyroid (pork) 30 mg tablet 30 mg PO DAILY #90 tab 03/08/19 apixaban 5 mg tablet 5 mg PO BID #60 tab 05/07/19 imipramine 50 mg tablet 50 mg PO QHS tab 05/20/19 lisinopril 2.5 mg tablet 2.5 mg PO DAILY tab 06/27/19 Cholecalciferol (Vitamin D3) [Vitamin D3] 2,000 unit PO DAILY 07/25/19 Cyanocobalamin/Folic Acid [Vitamin F54-Cwvuq Acid Tablet] 1 tab PO DAILY 07/25/19 Clonazepam 0.25 mg PO QHS 07/28/19 Ensure Enlive 120 ml PO 4X/DAY 07/28/19 Metoprolol Tartrate [Lopressor (beta obie)] 50 mg PO BID 07/28/19 Potassium Chloride 20 meq PO DAILY 07/28/19 Capsaicin [Zostrix] 56.6 gm TP 4X/DAY PRN PRN #1 cream..g. 08/07/19 Furosemide [Lasix] 20 mg PO DAILY #0 tab 08/07/19 Megestrol [Megace] 40 mg PO BID #60 tab 08/07/19 Oxycodone [Oxyir] 5 mg PO Q6H PRN PRN 7 Days #28 tab 08/07/19 The following prescriptions were given: Megestrol [Megace] 40 mg PO BID #60 tab Transmission Status: Pending to [facility] Oxycodone [Oxyir] 5 mg PO Q6H PRN PRN 7 Days #28 tab PRN Reason: Pain Score 6-10/10 Transmission Status: Sent to [facility] Capsaicin [Zostrix] 56.6 gm TP 4X/DAY PRN PRN #1 cream..g. PRN Reason: knee pain Transmission Status: Pending to [facility] Primary Care Physician: Daljit Sen DO [Primary Care Provider] - Please follow up with your Primary Care Physician in: 1 week Test Results: Test results from this visit will be discussed in further detail at your follow- up appointment, if applicable. Proposed Discharge Date: 08/07/19
[2019-08-07 12:05] VITALS: BP 133/66; PULSE 109; RESP 18; TEMP 36.4; O2SAT 93
--- NOTE | 2019-08-07 12:06 | PCM.DC.SUM ---
Discharge Date and Diagnosis Date of Admission: 07/28/19 Date of Discharge: 08/07/19 - Primary Discharge Diagnosis Active and Suspected Problems (Last Reviewed 07/28/19 @ 15:51 by Ofelia White DO) Physical debility (Acute) due to Left sub-capital hip fracture Fracture of femoral neck, left, closed (Acute) Hyponatremia (Acute) - Secondary Discharge Diagnosis Chronic Problems (Last Reviewed 07/28/19 @ 15:51 by Ofelia White DO) Moderate to Severe malnutrition (Chronic) due to poor appetite Osteoarthritis of knee (Chronic) Poor appetite (Chronic) Mitral insufficiency (Chronic) Pulmonary hypertension (Chronic) PA systolic was estimated at 42 in February 2019 on echocardiogram Diastolic dysfunction (Chronic) Persistent atrial fibrillation (Chronic) Nonrheumatic mitral (valve) insufficiency (Chronic) Moderate to severe Chronic systolic (congestive) heart failure (Chronic) EF in February 2019 was 45%. Pleural effusion (Chronic) seen on an ECHO, not on CXR Nonrheumatic mitral (valve) prolapse (Chronic) Hypothyroidism (Chronic) Anxiety and depression (Chronic) Hospital Course and Treatment Imaging Results: Clinical Impression(s) from Imaging Studies Hip/Pelvis X-Ray 08/04/19 08:31 IMPRESSION: Stable appearance of the nondisplaced impacted left subcapital fracture of the proximal femur. Electronically Signed: Josiah Araujo, at 13:39 EST , Service support , Laboratory Tests 08/04/19 07/29/19 07/29/19 Range/Units 05:45 05:37 05:37 WBC (4.4-11.0) K/mm3 RBC (4.2-5.4) M/mm3 Hgb (12.0-15.0) g/dL Hct (37-47) % MCV (81-99) fL MCH (27.0-32.0) pg MCHC (32-36) g/dL RDW Std Deviation (35.1-43.9) fl RDW Coeff of Karis (11.6-14.6) % Plt Count (150-450) K/mm3 MPV (6.2-12.0) fl Sodium 134 L (136-145) mmol/L Potassium 4.4 (3.5-5.1) mmol/L Chloride 98 (98-107) mmol/L Carbon Dioxide 34.0 H (21.0-32.0) mmol/L Anion Gap 2 L (5-15) BUN 15 (7-18) mg/dL Creatinine 0.69 (0.55-1.02) mg/dL Estim Creat Clear Calc 32.18 ml/min Est GFR (MDRD) Af Amer 105 (>60) mL/min Est GFR (MDRD) Non-Af 87 (>60) mL/min BUN/Creatinine Ratio 21.6 H (10-20) RATIO Glucose 90 (74-106) mg/dL Calcium 9.0 (8.5-10.1) mg/dL Magnesium (1.6-2.6) mg/dL Total Bilirubin (0.20-1.00) mg/dL AST (15-37) U/L ALT (13-56) U/L Alkaline Phosphatase (45-117) U/L Total Protein (6.4-8.2) g/dL Albumin (3.2-5.0) g/dL Globulin (2.2-4.2) g/dL Albumin/Globulin Ratio (0.9-2.4) RATIO Vitamin D 25-Hydroxy 63.4 (29.95-100.01) ng/mL TSH 3.54 (0.358-3.74) uIU/mL Free T4 0.83 (0.76-1.46) ng/dL Digoxin 0.87 (0.80-2.00) ng/mL 07/29/19 07/29/19 Range/Units 05:37 05:37 WBC 6.4 (4.4-11.0) K/mm3 RBC 4.42 (4.2-5.4) M/mm3 Hgb 14.1 (12.0-15.0) g/dL Hct 42.5 (37-47) % MCV 96.2 (81-99) fL MCH 31.9 (27.0-32.0) pg MCHC 33.2 (32-36) g/dL RDW Std Deviation 44.2 H (35.1-43.9) fl RDW Coeff of Karis 12.4 (11.6-14.6) % Plt Count 297 (150-450) K/mm3 MPV 9.9 (6.2-12.0) fl Sodium 135 L (136-145) mmol/L Potassium 4.3 (3.5-5.1) mmol/L Chloride 98 (98-107) mmol/L Carbon Dioxide 31.0 (21.0-32.0) mmol/L Anion Gap 6 (5-15) BUN 20 H (7-18) mg/dL Creatinine 0.68 (0.55-1.02) mg/dL Estim Creat Clear Calc 32.39 ml/min Est GFR (MDRD) Af Amer 109 (>60) mL/min Est GFR (MDRD) Non-Af 90 (>60) mL/min BUN/Creatinine Ratio 29.6 H (10-20) RATIO Glucose 82 (74-106) mg/dL Calcium 8.9 (8.5-10.1) mg/dL Magnesium 2.2 (1.6-2.6) mg/dL Total Bilirubin 0.50 (0.20-1.00) mg/dL AST 24 (15-37) U/L ALT 24 (13-56) U/L Alkaline Phosphatase 90 (45-117) U/L Total Protein 6.9 (6.4-8.2) g/dL Albumin 3.1 L (3.2-5.0) g/dL Globulin 3.8 (2.2-4.2) g/dL Albumin/Globulin Ratio 0.8 L (0.9-2.4) RATIO Vitamin D 25-Hydroxy (29.95-100.01) ng/mL TSH (0.358-3.74) uIU/mL Free T4 (0.76-1.46) ng/dL Digoxin (0.80-2.00) ng/mL none Operations: None Procedures: None Summary of Care Provided: The patient is a 79 year old F with a past medical history of mild to moderate pulmonary hypertension, 3+ mitral regurgitation, persistent atrial fibrillation, nonischemic cardiomyopathy with a 45% ejection fraction, chronic anticoagulation with apixaban, hypothyroidism, anxiety/depression, hypertension and chronic systolic congestive heart failure who presented to the emergency department at [facility] on 07/25/2019 complaining of left hip pain which had been present for approximately 2 weeks. She admitted to having a fall 2 weeks prior to admission. She was diagnosed with a nondisplaced subcapital fracture of the left hip. She was admitted to the hospital and was seen in consultation by Dr. Goyo Carnes who felt that she could be managed nonsurgically. She was transferred to the inpatient rehab unit at [facility] on 07/28/2019 for debility secondary to nondisplaced subcapital fracture of the left hip for 3 hours of therapy daily with a goal of returning home after near her prior level of independence. She lives at home with her and has 6 stairs to get up into the trailer. She does not drive. She used a cane as an assistive device prior to the hip fracture. Lab at admission was significant for mild hyponatremia, increased serum bicarb (thought to be due to contraction alkalosis) and an elevated BUN/CREAT ratio at 29.6. She c/o some lightheadedness and the BP was borderline low with + orthostatics. Lasix was decreased from 20 mg BID to once daily. the lightheadedness resolved and orthostatic VS's were no longer +. The BUN/CREAT ratio came down to 21.6. Appetite was poor and she was diagnosed with severe malnutrition by the gasket notcher. Supplements were added to her diet. She was started on Megace which was effective in increasing the appetite. She initially had pain in the left knee tri when walking and an DALJIT wrap was instituted to support the knee. the left knee was neither swollen, red or warm to touch. The DALJIT wrap helped but, she continued to c/o pain and so she was started on EMLA cream followed by Zostrix BID and the pain greatly improved. She had no knee pain at the time of DC. She progressed very well with PT/OT and on 08/07/19 she was well enough to go home. At the time of DC she no longer had systolic BP's less than 90. She denied lightheadedness, SOB, Chest pain. She had better energy and she was able to do steps so that she could get into her home. She was discharged home and instructed to follow up with Dr. Sen in 1 week post discharge. She was given RX's for Megace 40 mg BID, OXY IR 5 mg #28 and Zostrix. She will also follow up with Deyvi Carver. PHYSICAL EXAM: GENERAL: alert, oriented X 3, Cooperative, NAD, smiling...tells me that she ate a much better breakfast today, she is very thin ORAL: moist mucosa, no mucosal lesions NECK: No JVD, supple, trachea midline LUNGS: CTA, symmetric chest expansion HEART: IRR IRR in AF, Normal S1 and S2, no rub, no gallop, no lightheadedness, + MM ABDOMEN: soft, NT, ND, BS present, no guarding with palpation EXTREMITIES: no edema, no cyanosis, no calf tenderness SKIN: No rashes, no breakdown NEUROLOGIC: no focal neurologic deficits PSYCH: appropriate, normal affect, pleasant This note was generated with Medlert dictation software. It may contain incorrect words, spelling, and punctuation that were not noted in checking the note before signing. - Physical Exam Vitals/I&O's: Vital Signs Temp Pulse Resp BP Pulse Ox 97.5 F L 108 H 12 116/62 100 08/07/19 08:48 08/07/19 08:48 08/07/19 08:48 08/07/19 08:48 08/07/19 08:48 Oxygen Delivery Method Room Air Weight: 97 lb 3.582 oz Body Mass Index (BMI) 15.0 Intake and Output for Last 24 Hours 08/05/19 08/06/19 08/07/19 23:59 23:59 23:59 Intake Total 660 / 660 560 / 560 740 / 740 Output Total 1950 / 1950 Balance 660 / 660 -1390 / -1390 740 / 740 Current Medications Acetaminophen (Tylenol) 1,000 mg PO Q8 [facility] Last Admin: 08/07/19 06:38 Dose: 1,000 mg Documented by: Apixaban (Eliquis) 5 mg PO BID@1000,1700 [facility] Last Admin: 08/07/19 08:38 Dose: 5 mg Documented by: Bisacodyl (Dulcolax) 10 mg RECTAL .PRN X 1 PRN PRN Reason: Constipation Calamine/Phenol (Calmoseptine Ointment) 1 applic TOPICAL BID [facility]; Protocol Last Admin: 08/07/19 10:17 Dose: 1 applicatio Documented by: [facility] Last Admin: 08/07/19 08:38 Dose: 500 mg Documented by: Cholecalciferol (Vitamin D) 2,000 unit PO DAILY [facility] Last Admin: 08/07/19 08:37 Dose: 2,000 unit Documented by: Clonazepam (Klonopin) 0.25 mg PO QHS [facility] Last Admin: 08/06/19 21:22 Dose: 0.25 mg Documented by: Digoxin (Lanoxin) 250 mcg PO TuFr [facility] Last Admin: 08/05/19 09:56 Dose: Not Given Documented by: Digoxin (Lanoxin) 125 mcg PO SuMoWeThSa [facility] Last Admin: 08/07/19 08:37 Dose: 125 mcg Documented by: Famotidine (Pepcid) 20 mg PO DAILY [facility] Last Admin: 08/07/19 08:38 Dose: 20 mg Documented by: Furosemide (Lasix) 20 mg PO DAILY [facility] Last Admin: 08/07/19 08:38 Dose: 20 mg Documented by: Imipramine HCl (Tofranil) 50 mg PO QHS [facility] Last Admin: 08/06/19 21:22 Dose: 50 mg Documented by: Lisinopril (Zestril) 2.5 mg PO DAILY@1200 [facility] Last Admin: 08/06/19 13:00 Dose: 2.5 mg Documented by: Magnesium Hydroxide (Milk Of Magnesia) 30 ml PO .PRN X 1 PRN PRN Reason: Constipation Megestrol Acetate (Megace) 40 mg PO BID [facility] Last Admin: 08/07/19 08:38 Dose: 40 mg Documented by: Metoprolol Tartrate (Lopressor (Beta Steve)) 50 mg PO BID@1000,1700 [facility] Last Admin: 08/07/19 08:37 Dose: 50 mg Documented by: Multivitamins (Multivitamin) [facility] Last Admin: 08/07/19 08:38 Dose: 1 tablet Documented by: Nutritional Formula (Lactose Free) (Ensure Enlive) 120 ml PO 4X/DAY [facility] Last Admin: 08/07/19 08:41 Dose: Not Given Documented by: Oxycodone HCl (Oxyir) 5 mg PO Q6H PRN PRN PRN Reason: Pain Score 6-10/10 Last Admin: 08/07/19 08:44 Dose: 5 mg Documented by: Polyethylene Glycol (Miralax) 17 gm PO DAILY [facility] Last Admin: 08/07/19 08:38 Dose: 17 gm Documented by: Potassium Chloride (K-Dur) 20 meq PO DAILYCM [facility] Last Admin: 08/07/19 08:38 Dose: 20 meq Documented by: Thyroid ([place] Thyroid) 30 mg PO DAILY@0600 [facility] Last Admin: 08/07/19 06:38 Dose: 30 mg Documented by: Discharge Activity: May Not Drive, Use Walker Weight Bearing Status: Toe touch weight bearing - left leg Call your doctor if you observe: Fever of 101 or Higher, Numbness or Tingling - in the left leg, Inability to urinate, Inability to have a bowel movement, Shortness of breath, Dizziness, Fainting spells, Swelling in the ankles, Chest pain, Increased palpitations (irregular heartbeat), Calf discomfort, Uncontrolled pain Home Medications: Medications to take at Discharge polyethylene glycol 3350 17 gram oral powder packet 17 g PO DAILY 06/20/18 Digoxin 125 mcg PO DAILY 02/24/19 Multivitamin with Minerals [Multiple Vitamin] 1 tab PO DAILY 02/24/19 thyroid (pork) 30 mg tablet 30 mg PO DAILY #90 tab 03/08/19 apixaban 5 mg tablet 5 mg PO BID #60 tab 05/07/19 imipramine 50 mg tablet 50 mg PO QHS tab 05/20/19 lisinopril 2.5 mg tablet 2.5 mg PO DAILY tab 06/27/19 Cholecalciferol (Vitamin D3) [Vitamin D3] 2,000 unit PO DAILY 07/25/19 Cyanocobalamin/Folic Acid [Vitamin A58-Heonx Acid Tablet] 1 tab PO DAILY 07/25/19 Ensure Enlive 120 ml PO 4X/DAY 07/28/19 Metoprolol Tartrate [Lopressor (beta steve)] 50 mg PO BID 07/28/19 Capsaicin [Zostrix] 56.6 gm TP 4X/DAY PRN PRN #1 cream..g. 08/07/19 Furosemide [Lasix] 20 mg PO DAILY #0 tab 08/07/19 Megestrol [Megace] 40 mg PO BID #60 tab 08/07/19 Oxycodone [Oxyir] 5 mg PO Q6H PRN PRN 7 Days #28 tab 08/07/19 clonazepam 0.5 mg tablet 0.25 mg PO QHS #45 tab 08/08/19 potassium chloride ER 10 mEq tablet,extended release 20 meq PO DAILY #90 tab 08/08/19 Following Prescrptions Were Given to Patient: Megestrol [Megace] 40 mg PO BID #60 tab Transmission Status: Received by [facility] Oxycodone [Oxyir] 5 mg PO Q6H PRN PRN 7 Days #28 tab PRN Reason: Pain Score 6-10/10 Transmission Status: Received by [facility] Capsaicin [Zostrix] 56.6 gm TP 4X/DAY PRN PRN #1 cream..g. PRN Reason: knee pain Transmission Status: Received by [facility] Primary Care Physician: Daljit Sen DO [Primary Care Provider] - Please follow up with your Primary Care Physician in: 1 week Patient Instructions: Hip Safety: Mastering Daily Tasks, Understanding Hip Fractures Disposition: Home with Home Health Minutes spent on discharge:: 40 Patient Condition:: Good Medical Necessity - Tobacco Use Smoking Status: Never smoker Tobacco Use: Non-smoker Meaningful Use Info Meaningful Use Diagnoses (Choose all that apply): None applicable Code Visit Inpatient E&M: 56205 Disch Hosp
[2019-08-07] MEDS: Lisinopril 2.5 MG Tablet PO (12:55)
--- NOTE | 2019-08-07 13:35 | NURSING ---
discharged home with family. discharge medications and instructions reviewed with pt and family. denies questions or concerns.
== END 2019-08-07 13:35 | disposition home health service (06) | DRG 559 ==
PROVIDERS: Admitting Provider Internal Medicine; Family Provider Family Medicine; PCP Family Medicine; Referring Provider Internal Medicine; Visit Provider Internal Medicine
DX: S72.012D Unspecified intracapsular fracture of left femur, subsequent encounter for closed fracture with routine healing (principal); E43 Unspecified severe protein-calorie malnutrition; I48.19 Other persistent atrial fibrillation; I50.42 Chronic combined systolic (congestive) and diastolic (congestive) heart failure; E87.1 Hypo-osmolality and hyponatremia; Z68.1 Body mass index [BMI] 19.9 or less, adult; X58.XXXD Exposure to other specified factors, subsequent encounter; I27.20 Pulmonary hypertension, unspecified; E03.9 Hypothyroidism, unspecified; I11.0 Hypertensive heart disease with heart failure; K21.9 Gastro-esophageal reflux disease without esophagitis; K58.9 Irritable bowel syndrome, unspecified; F41.9 Anxiety disorder, unspecified; F32.9 Major depressive disorder, single episode, unspecified; M17.12 Unilateral primary osteoarthritis, left knee
CPT/HCPCS: 36415; 73502; 80048; 80053; 80162; 82306; 83735; 84439; 84443; 85027; 97110; 97116; 97162; 97166; 97530; 97535; 97537; 97802; 97803; 99251; G0463

== ENCOUNTER → 2019-09-19 12:13 | Outpatient (CLI) | payer MEDICARE, BC, SELFPAY ==
[2019-08-19 13:34] VITALS: BMI 15.0
--- NOTE | 2019-09-19 12:13 | ECHOD_ITS ---
Reason For Study: MVP Procedure This was a 2D Doppler, Color Flow transthoracic echocardiogram. Technically limited - pt unable to lay in LLD position for full exam due to left hip pain. Exam performed in department. Left Ventricle Normal LV size. Left ventricular systolic function is normal. The estimated ejection fraction is 55 %. Unable to assess diastolic dysfunction. No regional wall motion abnormalities noted. Right Ventricle Normal RV size. Normal systolic function. Atria The left atrium is moderately enlarged. Normal right atrium. No doppler evidence for ASD. Mitral Valve There is mild to moderate mitral annular calcification. Extension of the mitral annular calcification onto the mitral valve leaflets. Anterior leaflet diffuse mitral valve thickening. Mitral valve doming/Hockey Sticking. Equivocal mitral valve prolapse. Moderately severe (3+) eccentric mitral valve insufficiency. Tricuspid Valve Normal tricuspid valve. Mild tricuspid valve insufficiency. Right ventricular systolic pressure estimated to be 54 mmHg. Aortic Valve Trisinus/trileaflet aortic valve. Mild diffuse aortic valve thickening. Mild focal aortic valve calcification. Pulmonic Valve The pulmonic valve is not well visualized. Great Vessels Normal sized aortic root. Pericardium/Pleural No pericardial effusion. MMode/2D Measurements & Calculations LVIDd: 4.8 cm IVSd: 0.79 cm Ao root diam: 3.1 cm LVIDs: 3.3 cm LVPWd: 0.77 cm RVDd: 2.7 cm FS: 31.8 % LAV(MOD-sp4): 74.7 ml LA A4 area: 25.2 cm2 LA dimension(2D): 4.2 cm RA A4 area: 11.4 cm2 Doppler Measurements & Calculations PA V2 max: 57.5 cm/sec TR max natacha: 312.6 cm/sec TR max P.1 mmHg Interpretation Summary Left ventricular systolic function is normal. The estimated ejection fraction is 55 %. The left atrium is moderately enlarged. There is mild to moderate mitral annular calcification. Extension of the mitral annular calcification onto the mitral valve leaflets. Anterior leaflet diffuse mitral valve thickening. Mitral valve doming/Hockey Sticking Equivocal mitral valve prolapse. Moderately severe (3+) eccentric mitral valve insufficiency. Mild tricuspid valve insufficiency. Mild diffuse aortic valve thickening. Mild focal aortic valve calcification. Right ventricular systolic pressure estimated to be 54 mmHg. Unable to assess diastolic dysfunction. Ordering Physician: Soraya Bagley/Leonidas Pereira Referring Physician: RONNI SAENZ Performed By: Koki Farias, RDCS, RVT
== END ==
PROVIDERS: Family Provider Family Medicine; PCP Family Medicine; Referring Provider Physician Assistant Medical; Visit Provider Physician Assistant Medical
DX: I34.0 Nonrheumatic mitral (valve) insufficiency (principal)
CPT/HCPCS: 93306

== ENCOUNTER → 2020-08-04 16:08 | Outpatient (CLI) | payer MEDICARE, BC, SELFPAY ==
[2020-05-19 13:13] VITALS: BMI 15.5
--- NOTE | 2020-08-04 16:35 | RAD_ITS ---
STUDY: X-RAY - CERVICAL SPINE REASON FOR EXAM: Female, 80 years old patient with neck pain after fall awhile ago. TECHNIQUE: 3 view(s) of the cervical spine were obtained. COMPARISON: Prior comparison studies are not available for review at this time. FINDINGS: There are degenerative changes of the anterior atlantoaxial articulation. Hairpins obscure the anatomy of the odontoid and skull base. There is straightening of the normal cervical lordosis. There is mild anterolisthesis at C4-5. There is diffuse demineralization of the cervical spine. There is multi-level degenerative disc disease with multilevel disc space narrowing. The posterior elements of normal alignment. Spinous processes appear intact. Lung apices appear to be clear. Prevertebral soft tissues and paraspinal soft tissues are within normal limits. There is no demonstrated fracture of the cervical spine. RAD/Cerv Spine 2 or 3 Views IMPRESSION: 1. No radiographic evidence of acute compression or displaced fracture. 2. Moderately severe multilevel degenerative disc disease and degenerative arthropathy of the cervical spine. Electronically Signed: Cathy Gorman MD at 3:23 EST , Service support ,
[2020-08-04 17:51] LABS: AST(SGOT) 28 U/L (15-37); Alanine Aminotransfer ALT/SGPT 30 U/L (13-56); Albumin, Serum 3.8 g/dL (3.2-5.0); Alkaline Phosphatase 69 U/L (45-117); Anion Gap 1 (5-15); BUN 19 mg/dL (7-18); BUN/Creat Ratio 26.7 RATIO (10-20); Calcium,Total 9.5 mg/dL (8.5-10.1); Chloride 101 mmol/L (98-107); Cholesterol 168 mg/dL (200); Creatinine, Serum 0.71 mg/dL (0.55-1.02); EST Glomerular Filtration Rate 84 mL/min (>60); Est Glom Filt Rate - Afr Amer 102 mL/min (>60); Globulin 3.7 g/dL (2.2-4.2); Glucose 80 mg/dL (74-106); High Density Lipoprotein 67 mg/dL; Potassium 4.6 mmol/L (3.5-5.1); Protein, Total 7.5 g/dL (6.4-8.2); Sodium Level 137 mmol/L (136-145); T4 Free Direct 0.85 ng/dL (0.76-1.46); Thyroid Stim Hormone (TSH) 2.61 uIU/mL (0.358-3.74); Triglycerides 142 mg/dL; Very Low Density Lipoprotein 28 mg/dL (5-40)
[2020-08-04 18:01] LABS: Absolute Lymphocyte Count 1.89 X10^3/uL (0.83-4.51); Absolute Neutrophil Count 3.4 X10^3/uL (2.0-7.7); Basophil# 0.06 X10^3/uL; Eosinophil# 0.25 X10^3/uL; Eosinophils% 4.1 % (0-5); Hematocrit 40.5 % (37-47); Hemoglobin 12.6 g/dL (12.0-15.0); Lymphocyte # 1.89 X10^3/ul (4.0); Lymphocyte % 30.8 % (19-41); Mean Corp Hgb Conc 31.1 g/dL (32-36); Mean Corpuscular Volume 99.8 fL (81-99); Mean Platelet Vol. 11.2 fl (6.2-12.0); Monocyte# 0.56 X10^3/uL; Monocyte% 9.1 % (0-10); NRBC Flagged by Analyzer 0 % (0-5); Neutrophil # 3.36 X10^3/uL (2.7-7.7); Neutrophil % 54.8 % (47-70); Platelet Count 194 K/mm3 (150-450); RBC Distribution Width CV 14.2 % (11.6-14.6); RBC Distribution Width SD 52.8 fl (35.1-43.9); Red Blood Count 4.06 M/mm3 (4.2-5.4); White Blood Count 6.1 K/mm3 (4.4-11.0)
== END ==
PROVIDERS: PCP Family Medicine; Referring Provider Family Medicine; Visit Provider Family Medicine
DX: E43 Unspecified severe protein-calorie malnutrition (principal); M54.2 Cervicalgia
CPT/HCPCS: 36415; 72040; 80053; 80061; 84439; 84443; 85025

== ENCOUNTER → 2020-11-10 10:34 | Outpatient (CLI) | payer MEDICARE, BC, SELFPAY ==
[2020-11-03 11:37] VITALS: BMI 16.2
--- NOTE | 2020-11-10 10:40 | BD_ITS ---
STUDY: DUAL ENERGY X-RAY ABSORPTIOMETRY / DXA REASON FOR EXAM: Female, 80 years old. Osteoporosis. Loss of height. TECHNIQUE: Bone Mineral Density (BMD) measurements of lumbar spine and right hip were obtained. COMPARISON: None. FINDINGS: Lumbar Spine (L1-L4): g/cm2 (1.201) / T-score (0.3) / Z-score (2.1) Findings are suggestive of normal bone density with a low fracture risk. Right Femur Total: g/cm2 (0.845) / T-score (-1.3) / Z-score (0.6) Right Femoral Neck: g/cm2 (0.829) / T-score (-1.5) / Z-score (0.6) BD/Dexa Bone Density Study IMPRESSION: The patient is considered osteopenic as outlined below according to World Kai Organization (WHO) criteria with a low fracture risk. Reference Information: The T-score is the number of standard deviations above or below the standard which is normal for young adults at their peak bone mineral density. The World Health Organization (WHO) interprets the T-scores as follows: Above -1 Normal bone density Between -1 and -2.5 Osteopenia Equal to / or below -2.5 Osteoporosis As a practical clinical guideline, osteopenia may be graded as follows: Mild -1 through -1.5 Moderate -1.6 through -2.0 Severe -2.1 through -2.4 The Z-score is the number of standard deviations above or below age-matched controls. A Z-score of less than -1.5 would be considered abnormal. References: 1. NIH Osteoporosis and Related Bone Diseases www osteo.org 2. International Society for Clinical Densitometry www iscd.org 3. National Osteoporosis Foundation www nof.org Electronically Signed: Josiah Araujo MD at 15:22 EDT , Service support ,
== END ==
PROVIDERS: PCP Family Medicine; Referring Provider Family Medicine; Visit Provider Family Medicine
DX: M81.0 Age-related osteoporosis without current pathological fracture (principal)
CPT/HCPCS: 77080

== ENCOUNTER → 2021-03-17 09:29 | Outpatient (CLI) | payer MEDICARE, BC, SELFPAY ==
[2021-03-04 15:20] VITALS: BMI 16.9
[2021-03-17 10:37] LABS: Anion Gap 1 (5-15); BUN 15 mg/dL (7-18); BUN/Creat Ratio 19.7 RATIO (10-20); Calcium,Total 8.7 mg/dL (8.5-10.1); Chloride 104 mmol/L (98-107); Creatinine, Serum 0.76 mg/dL (0.55-1.02); EST Glomerular Filtration Rate 78 mL/min (>60); Est Glom Filt Rate - Afr Amer 94 mL/min (>60); Glucose 69 mg/dL (74-106); Potassium 4.2 mmol/L (3.5-5.1); Sodium Level 139 mmol/L (136-145)
== END ==
PROVIDERS: PCP Family Medicine; Referring Provider Internal Medicine Cardiovascular Disease; Visit Provider Internal Medicine Cardiovascular Disease
DX: I50.22 Chronic systolic (congestive) heart failure (principal)
CPT/HCPCS: 36415; 80048

== ENCOUNTER → 2021-03-21 12:47 | Outpatient (CLI) | payer MEDICARE, BC, SELFPAY ==
[2021-03-04 15:20] VITALS: BMI 16.9
--- NOTE | 2021-03-21 12:52 | ECHOD_ITS ---
Reason For Study: MURMUR Procedure This was a 2D Doppler, Color Flow transthoracic echocardiogram. Technically difficult d/t body habitus. The study was technically difficult. Exam performed in department. Left Ventricle Normal LV size. Left ventricular systolic function is normal. The estimated ejection fraction is 65 %. There is evidence of diastolic dysfunction. No regional wall motion abnormalities noted. Right Ventricle Normal RV size. Normal systolic function. Atria The left atrium is moderately enlarged. Normal right atrium. No doppler evidence for ASD. Mitral Valve There is mild to moderate mitral annular calcification. Extension of the mitral annular calcification on the base of the posterior mitral valve leaflet. Mild diffuse mitral valve thickening. Mitral valve doming/Hockey Sticking. Equivocal mitral valve prolapse. Moderately severe (3+) eccentric mitral valve insufficiency. Tricuspid Valve Normal tricuspid valve. Mild tricuspid valve insufficiency. Right ventricular systolic pressure estimated to be 29 mmHg. Aortic Valve Trisinus/trileaflet aortic valve. Mild diffuse aortic valve thickening. Mild focal aortic valve calcification. Pulmonic Valve The pulmonic valve is not well visualized. Trivial pulmonic valve insufficiency. Great Vessels Normal sized aortic root. Pericardium/Pleural No pericardial effusion. MMode/2D Measurements & Calculations LVIDd: 4.6 cm IVSd: 0.83 cm Ao root diam: 2.9 cm LVIDs: 3.3 cm LVPWd: 0.80 cm RVDd: 2.4 cm FS: 27.7 % LAV(MOD-bp): 110.7 ml LVAd ap4: 25.4 cm2 LVAd ap2: 25.2 cm2 LAV(MOD-bp) Indexed: 71.1 ml/m2 LVLd ap4: 7.4 cm LVLd ap2: 7.1 cm LAV(MOD-sp2): 104.8 ml EDV(MOD-sp4): 71.7 ml EDV(MOD-sp2): 74.9 ml LAV(MOD-sp4): 97.7 ml EDV(sp4-el): 73.9 ml EDV(sp2-el): 75.7 ml LVAs ap4: 14.4 cm2 LVAs ap2: 14.7 cm2 LVLs ap4: 6.2 cm LVLs ap2: 5.9 cm ESV(MOD-sp4): 28.1 ml ESV(MOD-sp2): 30.4 ml ESV(sp4-el): 28.2 ml ESV(sp2-el): 31.0 ml EF(MOD-sp4): 60.8 % EF(MOD-sp2): 59.4 % EF(sp4-el): 61.8 % SV(MOD-sp4): 43.6 ml SV(MOD-sp2): 44.5 ml SV(sp4-el): 45.6 ml LA dimension(2D): 4.2 cm LA A4 area: 29.1 cm2 RA A4 area: 12.5 cm2 Time Measurements MV dec time: 0.23 sec Doppler Measurements & Calculations MV E max diego: 179.4 cm/sec Lat Peak E' Diego: 9.0 cm/sec Med Peak E' Diego: 8.2 cm/sec E/E' lat: 20.0 E/E' med: 21.9 Ao V2 max: 121.9 cm/sec LV V1 max: 68.9 cm/sec PA V2 max: 74.9 cm/sec Ao max P.9 mmHg LV V1 max P.9 mmHg PI end-d diego: 111.9 cm/sec TR max diego: 255.0 cm/sec TR max P.0 mmHg ECHO/Echo Complete Interpretation Summary The study was technically difficult. Left ventricular systolic function is normal. The estimated ejection fraction is 65 %. The left atrium is moderately enlarged. There is mild to moderate mitral annular calcification. Extension of the mitral annular calcification on the base of the posterior mitr al valve leaflet. Mild diffuse mitral valve thickening. Mitral valve doming/Hockey Sticking Equivocal mitral valve prolapse. Moderately severe (3+) eccentric mitral valve insufficiency. Mild tricuspid valve insufficiency. Mild diffuse aortic valve thickening. Mild focal aortic valve calcification. Trivial pulmonic valve insufficiency. Right ventricular systolic pressure estimated to be 29 mmHg. There is evidence of diastolic dysfunction. Ordering Physician: Leonidas Pereira Referring Physician: RONNI SAENZ Performed By: Koki Farias, ALYCIACS, RVT
== END ==
PROVIDERS: PCP Family Medicine; Referring Provider Internal Medicine Cardiovascular Disease; Visit Provider Internal Medicine Cardiovascular Disease
DX: R01.1 Cardiac murmur, unspecified (principal); I48.19 Other persistent atrial fibrillation; I34.0 Nonrheumatic mitral (valve) insufficiency; I50.22 Chronic systolic (congestive) heart failure; I27.20 Pulmonary hypertension, unspecified
CPT/HCPCS: 93306

== ENCOUNTER 2021-10-01 02:22 | Emergency (ER) | payer MEDICARE, BC, SELFPAY ==
--- NOTE | 2021-10-01 02:45 | EDS_ITS ---
DATE OF SERVICE 10/01/21 CHIEF COMPLAINT: Bleeding from left ankle scab. HISTORY OF PRESENT ILLNESS: This is an 82-year-old female with a history of atrial fibrillation. She is on Eliquis. She has a small scab on her posterior left lateral ankle. She picked it off and was bleeding. She was brought in by squad. The bleeding has now since resolved. She denies other complaints. She has not been recently ill or recently hospitalized. PHYSICAL EXAMINATION: GENERAL: No distress. VITAL SIGNS: Blood pressure 121/54, afebrile. Pulse ox is 100% on room air with no hypoxia. HEENT: Unremarkable. Moist mucous membranes, atraumatic. LUNGS: Clear, equal and symmetrical bilaterally. HEART: Irregularly irregular, consistent with atrial fibrillation. Rate about 70. There is 3/6 murmur. ABDOMEN: Soft, nontender. EXTREMITIES: Moving all 4 extremities. Neurovascularly intact. Nontender, no edema. There is a very small area of an old wound on the left lateral posterior ankle. It is not actively bleeding. She has normal plantar flexion and dorsiflexion and sensation. EMERGENCY DEPARTMENT COURSE AND MEDICAL DECISION MAKING: The patient had bleeding that has since resolved. She is on Eliquis. The wound will be dressed. She will be discharged to home. IMPRESSION: Skin bleeding, resolved. History of anticoagulation on Eliquis. History of atrial fibrillation. PLAN: Discharged to home. If bleeding, start pressure, ice and elevated. If unable to stop, return. cc: Dr. Gerardo Sen
== END 2021-10-01 03:23 | disposition home or self-care (01) ==
PROVIDERS: Emergency Provider Emergency Medicine; PCP Family Medicine; Referring Provider Emergency Medicine; Visit Provider Emergency Medicine
DX: R23.4 Changes in skin texture (principal); I48.91 Unspecified atrial fibrillation; Z79.01 Long term (current) use of anticoagulants
CPT/HCPCS: 99283

== ENCOUNTER → 2022-01-17 | Outpatient (CLI) | payer MEDICARE, BC, SELFPAY ==
[2022-01-17 12:20] LABS: Hematocrit 40.1 % (37-47); Hemoglobin 12.8 g/dL (12.0-15.0); Mean Corp Hgb Conc 31.9 g/dL (32-36); Mean Corpuscular Hgb 32.2 pg (27.0-32.0); Mean Platelet Vol. 10.9 fl (6.2-12.0); Platelet Count 171 K/mm3 (150-450); RBC Distribution Width CV 13.7 % (11.6-14.6); RBC Distribution Width SD 51.3 fl (35.1-43.9); Red Blood Count 3.97 M/mm3 (4.2-5.4); White Blood Count 4.7 K/mm3 (4.4-11.0)
[2022-01-17 12:33] LABS: Digoxin Level 1.29 ng/mL (0.80-2.00)
[2022-01-17 12:39] LABS: ALB/GLOB Ratio 1.1 RATIO (0.9-2.4); AST(SGOT) 33 U/L (15-37); Alanine Aminotransfer ALT/SGPT 28 U/L (13-56); Albumin, Serum 3.6 g/dL (3.2-5.0); Alkaline Phosphatase 53 U/L (45-117); Anion Gap 4 (5-15); BUN 22 mg/dL (7-18); BUN/Creat Ratio 25.6 RATIO (10-20); Calcium,Total 9.2 mg/dL (8.5-10.1); Chloride 102 mmol/L (98-107); Cholesterol 159 mg/dL (200); Creatinine, Serum 0.86 mg/dL (0.55-1.02); EST Glomerular Filtration Rate 68 mL/min (>60); Est Glom Filt Rate - Afr Amer 82 mL/min (>60); Globulin 3.2 g/dL (2.2-4.2); Glucose 78 mg/dL (74-106); High Density Lipoprotein 64 mg/dL; Potassium 4.5 mmol/L (3.5-5.1); Protein, Total 6.8 g/dL (6.4-8.2); Sodium Level 139 mmol/L (136-145); Triglycerides 119 mg/dL; Very Low Density Lipoprotein 24 mg/dL (5-40)
== END | disposition home or self-care (01) ==
LOC: BIMLAB 11:00
PROVIDERS: PCP Family Medicine; Referring Provider Family Medicine; Visit Provider Family Medicine
DX: R01.1 Cardiac murmur, unspecified (principal); E87.1 Hypo-osmolality and hyponatremia; E03.9 Hypothyroidism, unspecified
CPT/HCPCS: 36415; 80053; 80061; 80162; 85027

== ENCOUNTER → 2022-03-07 | Outpatient (CLI) | payer MEDICARE, BC, SELFPAY ==
--- NOTE | 2022-03-07 12:50 | ECHOD_ITS ---
Reason For Study: MITRAL VALVE DISEASE Procedure This was a 2D Doppler, Color Flow transthoracic echocardiogram. Contrast injection was performed. Exam performed in department. Left Ventricle Normal LV size. Mid cavitary false tendon noted. Left ventricular systolic function is normal. The estimated ejection fraction is 65 %. Unable to assess diastolic dysfunction. No regional wall motion abnormalities noted. Right Ventricle Normal RV size. Normal systolic function. Atria The left atrium is severely enlarged. Normal right atrium. No doppler evidence for ASD. Mitral Valve There is mild mitral annular calcification. Extension of the mitral annular calcification onto the base of the posterior mitral valve leaflet. Mild diffuse mitral valve thickening. Mitral valve doming/Hockey Sticking. The mitral valve chordae are thickened and/or calcified. Equivocal mitral valve prolapse. Moderately severe (3+) eccentric mitral valve insufficiency. Tricuspid Valve Normal tricuspid valve. Moderate (2+) eccentric tricuspid valve insufficiency. Right ventricular systolic pressure estimated to be 46 mmHg. Aortic Valve Trisinus/trileaflet aortic valve. Mild diffuse aortic valve thickening. Mild focal aortic valve calcification. Pulmonic Valve The pulmonic valve is not well visualized. Great Vessels Normal sized aortic root. Pericardium/Pleural No pericardial effusion. MMode/2D Measurements & Calculations LVIDd: 3.9 cm IVSd: 1.2 cm Ao root diam: 3.2 cm LVIDs: 2.3 cm LVPWd: 1.0 cm RVDd: 2.8 cm FS: 41.3 % LAV(MOD-sp4): 126.0 ml LVAd ap4: 24.4 cm2 SV(MOD-sp4): 46.9 ml LVLd ap4: 7.1 cm EDV(MOD-sp4): 69.4 ml EDV(sp4-el): 70.9 ml LVAs ap4: 12.2 cm2 LVLs ap4: 5.6 cm ESV(MOD-sp4): 22.5 ml ESV(sp4-el): 22.3 ml EF(MOD-sp4): 67.5 % EF(sp4-el): 68.5 % SV(sp4-el): 48.6 ml LA A4 area: 32.6 cm2 LA dimension(2D): 4.5 cm RA A4 area: 15.9 cm2 Doppler Measurements & Calculations MV E max natacha: 198.1 cm/sec Ao V2 max: 106.1 cm/sec LV V1 max: 96.4 cm/sec Ao max P.5 mmHg LV V1 max P.7 mmHg MR max natacha: 550.5 cm/sec TR max natacha: 306.6 cm/sec MR max P.2 mmHg TR max P.6 mmHg MR mean natacha: 423.4 cm/sec MR mean P.4 mmHg MR VTI: 174.5 cm ECHO/Echo Complete Interpretation Summary Left ventricular systolic function is normal. The estimated ejection fraction is 65 %. Mid cavitary false tendon noted. The left atrium is severely enlarged. There is mild mitral annular calcification. Extension of the mitral annular calcification onto the base of the posterior mi tral valve leaflet. Mild diffuse mitral valve thickening. Mitral valve doming/Hockey Sticking The mitral valve chordae are thickened and/or calcified. Equivocal mitral valve prolapse. Moderately severe (3+) eccentric mitral valve insufficiency. Moderate (2+) eccentric tricuspid valve insufficiency. Mild diffuse aortic valve thickening. Mild focal aortic valve calcification. Right ventricular systolic pressure estimated to be 46 mmHg. Unable to assess diastolic dysfunction. Ordering Physician: Julio Kenny Referring Physician: Julio Kenny Performed By: Sejal Wilkerson RCS
== END | disposition home or self-care (01) ==
LOC: CVS 12:49
PROVIDERS: PCP Family Medicine; Referring Provider Nurse Practitioner Family; Visit Provider Nurse Practitioner Family
DX: R01.1 Cardiac murmur, unspecified (principal); I08.3 Combined rheumatic disorders of mitral, aortic and tricuspid valves
CPT/HCPCS: 93306

== ENCOUNTER → 2022-05-18 | Outpatient (CLI) | payer MEDICARE, BC, SELFPAY ==
[2022-05-18 13:10] LABS: Vitamin B12 681 pg/mL (211-911)
[2022-05-18 13:12] LABS: Thyroid Stim Hormone (TSH) 3.58 uIU/mL (0.358-3.74)
== END | disposition home or self-care (01) ==
LOC: BIMLAB 11:09
PROVIDERS: PCP Family Medicine; Referring Provider Family Medicine; Visit Provider Family Medicine
DX: F41.9 Anxiety disorder, unspecified (principal); F32.9 Major depressive disorder, single episode, unspecified; E53.8 Deficiency of other specified B group vitamins
CPT/HCPCS: 36415; 82607; 84439; 84443

== ENCOUNTER → 2022-09-05 | Outpatient (CLI) | payer MEDICARE, BC, SELFPAY ==
--- NOTE | 2022-09-05 11:26 | US_ITS ---
HISTORY: mass on right buttock. TECHNIQUE: Multiple real-time sonographic images of the right buttock were obtained. 25 images. COMPARISON: XR 08/04/2019. FINDINGS: The right gluteal fold medially demonstrates an oval 4 x 10 x 12 mm echogenic lesion with posterior acoustic shadowing. US/Ext Non Vasc Limited/Soft Tiss IMPRESSION: 1.2 cm echogenic lesion in the right gluteal fold, which may represent a calcified lesion. Consider limited pelvic CT for confirmation. Electronically Signed: Rosa Landa MD at 15:55 EST ,
== END | disposition home or self-care (01) ==
LOC: US 11:25
PROVIDERS: PCP Family Medicine; Referring Provider Family Medicine; Visit Provider Family Medicine
DX: R22.2 Localized swelling, mass and lump, trunk (principal)
CPT/HCPCS: 76882

== ENCOUNTER → 2022-12-05 | Outpatient (CLI) | payer MEDICARE, BC, SELFPAY ==
[2022-12-05 16:08] LABS: Mucous, Urine 0 SEEN /hpf (<or=2+); Red Blood Cells-Urine 0 SEEN /hpf (0-5)
[2022-12-05 16:47] LABS: Glucose, Dipstick Normal (Normal); Ketone-Dipstick Negative (Negative); Leukocyte Esterase-Dipstick 500 /ul (Negative); Nitrite-Dipstick Negative (Negative); Occult Blood-Urine 10 /ul (Negative); Protein-Dipstick Negative (Negative); Urine Bilirubin Dipstick Negative (Negative); Urine Urobilinogen Normal (Normal)
[2022-12-05 16:57] LABS: Color, Urine Yellow (Yellow); Urine Clarity Clear (Clear)
[2022-12-05 16:58] LABS: Bacteria RARE /hpf (None Seen); Squamous Epithelial Cells - UA 0-5 SEEN /hpf (5-10); White Blood Cells 5-10 SEEN /hpf (0-5)
[2022-12-05 17:29] LABS: Vitamin D,25 Hydroxy 58.7 ng/mL
== END | disposition home or self-care (01) ==
LOC: BIMLAB 15:46
PROVIDERS: PCP Family Medicine; Referring Provider Family Medicine; Visit Provider Family Medicine
DX: E43 Unspecified severe protein-calorie malnutrition (principal); N39.0 Urinary tract infection, site not specified
CPT/HCPCS: 36415; 81001; 82306

== ENCOUNTER → 2023-03-07 | Outpatient (CLI) | payer MEDICARE, BC, SELFPAY ==
[2023-03-07 16:49] LABS: Absolute Lymphocyte Count 1.92 X10^3/uL (0.83-4.51); Basophil# 0.05 X10^3/uL; Basophil% 0.7 % (0-1); Eosinophil# 0.12 X10^3/uL; Eosinophils% 1.8 % (0-5); Hematocrit 40.9 % (37-47); Hemoglobin 12.7 g/dL (12.0-15.0); Lymphocyte # 1.92 X10^3/ul (0.83-4.51); Lymphocyte % 28.5 % (19-41); Mean Corp Hgb Conc 31.1 g/dL (32-36); Mean Corpuscular Hgb 31.1 pg (27.0-32.0); Mean Corpuscular Volume 100.2 fL (81-99); Mean Platelet Vol. 10.7 fl (6.2-12.0); Monocyte# 0.59 X10^3/uL; Monocyte% 8.8 % (0-10); NRBC Flagged by Analyzer 0 % (0-5); Neutrophil # 4.04 X10^3/uL (2.7-7.7); Neutrophil % 59.9 % (47-70); Platelet Count 205 K/mm3 (150-450); RBC Distribution Width SD 47.7 fl (35.1-43.9); Red Blood Count 4.08 M/mm3 (4.2-5.4); White Blood Count 6.7 K/mm3 (4.4-11.0)
[2023-03-07 17:19] LABS: AST(SGOT) 31 U/L (15-37); Alanine Aminotransfer ALT/SGPT 27 U/L (13-56); Albumin, Serum 3.6 g/dL (3.2-5.0); Alkaline Phosphatase 48 U/L (45-117); Anion Gap 4 (5-15); BUN 23 mg/dL (7-18); BUN/Creat Ratio 30.6 RATIO (10-20); Calcium,Total 9.2 mg/dL (8.5-10.1); Chloride 101 mmol/L (98-107); Creatinine, Serum 0.75 mg/dL (0.55-1.02); EST Glomerular Filtration Rate 79 mL/min (>60); Est Glom Filt Rate - Afr Amer 95 mL/min (>60); Globulin 3.6 g/dL (2.2-4.2); Glucose 82 mg/dL (74-106); Potassium 4.3 mmol/L (3.5-5.1); Protein, Total 7.2 g/dL (6.4-8.2); Sodium Level 137 mmol/L (136-145); T4 Free Direct 0.77 ng/dL (0.76-1.46); Thyroid Stim Hormone (TSH) 3.63 uIU/mL (0.358-3.74)
== END | disposition home or self-care (01) ==
LOC: BIMLAB 14:40
PROVIDERS: PCP Family Medicine; Referring Provider Family Medicine; Visit Provider Family Medicine
DX: F32.9 Major depressive disorder, single episode, unspecified (principal); F41.9 Anxiety disorder, unspecified; E53.8 Deficiency of other specified B group vitamins; E87.1 Hypo-osmolality and hyponatremia; E03.9 Hypothyroidism, unspecified; I34.1 Nonrheumatic mitral (valve) prolapse
CPT/HCPCS: 36415; 80053; 84439; 84443; 85025

== ENCOUNTER → 2023-05-21 | Outpatient (CLI) | payer MEDICARE, BC, SELFPAY ==
--- NOTE | 2023-05-21 13:23 | ECHOD_ITS ---
Left Ventricle Normal LV size. Left ventricular systolic function is normal. The estimated ejection fraction is 60 %. Normal diastology for age. No regional wall motion abnormalities noted. Right Ventricle Normal RV size. Normal systolic function. Atria The left atrium is severely enlarged. Normal right atrium. Mitral Valve Bileaflet diffuse mitral valve thickening. Mild mitral valve prolapse. Moderate (2+) posteriorly directed mitral valve insufficiency. Tricuspid Valve Normal tricuspid valve. Mild (1+) tricuspid valve insufficiency. Pulmonary artery systolic pressure is 30 mmHg. Aortic Valve Trisinus/trileaflet aortic valve. Mild focal aortic valve calcification. Pulmonic Valve Normal pulmonic valve. Great Vessels Normal aortic root. The pulmonary artery is normal size. Inferior vena cava collapse with respiration. Pericardium/Pleural No pericardial effusion. MMode/2D Measurements & Calculations LVIDd: 5.0 cm IVSd: 0.79 cm LA dimension: 5.0 cm LVIDs: 2.9 cm LVPWd: 0.75 cm RVDd: 2.6 cm FS: 40.5 % LAV(MOD-bp): 149.5 ml LA A4 area: 36.7 cm2 RA A4 area: 13.6 cm2 LAV(MOD-bp) Indexed: 97.2 ml/m2 LAV(MOD-sp2): 137.5 ml LAV(MOD-sp4): 145.8 ml TAPSE: 1.7 cm Time Measurements MV dec time: 0.21 sec Doppler Measurements & Calculations MV E max diego: 192.5 cm/sec Lat Peak E' Diego: 8.2 cm/sec Med Peak E' Diego: 12.1 cm/sec MV A max diego: 37.2 cm/sec E/E' lat: 23.6 E/E' med: 15.9 MV E/A: 5.2 MV V2 max: 207.4 cm/sec MV P1/2t max diego: 207.4 cm/sec Ao V2 max: 148.3 cm/sec MV max P.3 mmHg MV P1/2t: 77.3 msec Ao max P.8 mmHg MV V2 mean: 93.7 cm/sec Ao V2 mean: 101.0 cm/sec MV mean P.8 mmHg MV dec slope: 785.6 cm/sec2 Ao mean P.7 mmHg MV V2 VTI: 44.7 cm MVA(P1/2t): 2.8 cm2 Ao V2 VTI: 32.3 cm AV (velocity ratio): 0.70 LV V1 max: 100.4 cm/sec MR max diego: 509.6 cm/sec PA V2 max: 64.3 cm/sec LV V1 max P.0 mmHg MR max P.9 mmHg LV V1 mean P.5 mmHg MR mean diego: 402.0 cm/sec LV V1 mean: 74.7 cm/sec MR mean P.7 mmHg LV V1 VTI: 22.5 cm MR VTI: 168.9 cm TR max diego: 257.1 cm/sec TR max P.4 mmHg ECHO/Echo Complete Interpretation Summary Normal LV size. Left ventricular systolic function is normal. The estimated ejection fraction is 60 %. The left atrium is severely enlarged. Moderate (2+) posteriorly directed mitral valve insufficiency. Mild mitral valve prolapse. Ordering Physician: Soraya Bagley Referring Physician: Soraya Bagley Performed By:
== END | disposition home or self-care (01) ==
LOC: CVS 13:22
PROVIDERS: PCP Family Medicine; Referring Provider Physician Assistant Medical; Visit Provider Physician Assistant Medical
DX: I34.1 Nonrheumatic mitral (valve) prolapse (principal)
CPT/HCPCS: 93306

== ENCOUNTER → 2023-09-11 | Outpatient (CLI) | payer MEDICARE, BC, SELFPAY ==
[2023-09-11 12:12] LABS: Bacteria 0 SEEN /hpf (None Seen); Mucous, Urine 0 SEEN /hpf (<or=2+); Red Blood Cells-Urine 0 SEEN /hpf (0-5); Squamous Epithelial Cells - UA 0 SEEN /hpf (5-10); White Blood Cells 0 SEEN /hpf (0-5)
--- OUTSIDE RECORDS SUMMARY | 2023-09-11 12:17 | XMS RPT_ITS | CCD ---
Author Name Unknown Address [address] [place] [id number] Organization [facility] Care Team Providers Care Retail Wireless Associate Name Role Phone FISH, LUCY Unavailable Unavailable BROWN, RONNI Unavailable Unavailable FISH, LUCY Unavailable Unavailable BROWN, RONNI Unavailable Unavailable FISH, LUCY Unavailable Unavailable BROWN, RONNI Unavailable Unavailable Results Test Name Value Interpretation Reference Range Facil ity Encounters Encounter Date Encounter Type Care Provider Facility Start: 05-16-2018 End: 05-17-2018 Patient encounter LUCY WRIGHT [facility] Start: 05-16-2018 End: 05-17-2018 Patient encounter LUCY WRIGHT [facility] Start: 02-20-2018 End: 02-21-2018 Patient encounter LUCY WRIGHT [facility] Payers Date Payer Category Payer Medicare [id number] Progress note 09-28-2021 Note Date & Type Note Facility 09-28-2021 Note HNO ID: [id number] Author: Kris Child MD Service: ? Author Type: Physician Type: Progress Notes Filed: 09/28/2021 11:24 AM Note Text: ASSESSMENT/PLAN 1. Epiretinal membrane right eye -lamellar hole, now closed -No metamorphopsia but has micropsia right eye -No diplopia but she says image is not vertically aligned if she closes one eye at a time -Vision 20/25 -OCT macula with Epiretinal membrane and lamellar hole right eye, within normal limits left eye 2. Pseudophakia of both eyes -Intraocular lens in good position -progressive posterior capsular opacity (PCO) right eye -s/p YAG capsulotomy left eye 3. Dry eye syndrome both eyes -mild symptoms both eyes PLAN -artificial tears twice a day both eyes -follow-up 12 months / sooner with OCT macula and dilated fundus exam. To consider YAG capsulotomy right eye when ready I have confirmed and edited as necessary the relevant ophthalmic history, ROS, and the neuro exam findings as obtained by others. I have seen and examined this patient. I have discussed the case and the management of this patient's care with the Resident/Fellow, if applicable. I also have reviewed and agree with the assessment and plan as stated above and agree with all of its relevant components. 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 Cataract extraction withIOL right eye 2. 3. 4. 5. Surgeon: Fab Resident/Fellow/Other Health Outreach Worker: None Estimated Blood Loss (mL): none Specimen: no Findings: Age-related Cataract right eye Operative Report Dictated: Dictation: not applicable - note contains Operative Report Operative Report: The patient was brought to the operating room. The patient was correctly identified in the preop area and the operative eye was marked with a marking pen. The operative eye was dilated in the preoperative area. The patient was then taken to the operating room where timeout was performed before starting the procedure. Combined anesthesia with intravenous sedation and topical tetracaine eyedrops were given the right eye. The operative eye was was prepped and draped in the standard sterile ophthalmic fashion in preparation for ophthalmic surgery. A Reza wire speculum was then inserted between the (more content not included)... Additional Source Comments INFORMATION SOURCE (unrecogn ized section and content) DATE CREATED AUTHOR AUTHOR'S ORGANIZ ATION 06/23/2019 [facility] DATE CREATED AUTHOR AUTHOR'S ORGANIZ ATION 10/26/2021 [facility] FOR RECORDS PERTAINING TO PATIENTS WHO ARE OR HAVE BEEN ENROLLED IN A CHEMICAL DEPENDENCY/SUBSTANCEABUSE PROGRAM, SOME INFORMATION MAY BE OMITTED. This clinical summary was aggregated from multiple sources. Caution should be exercised in using it in the provision of clinical care. This summary normalizes information from multiple sources, and as a consequence, information in this document may materially change the coding, format and clinical context of patient data. In addition, data may be omitted in some cases. CLINICAL DECISIONS SHOULD BE BASED ON THE PRIMARY CLINICAL RECORDS. [facility] [employer] [facility]. provides no warranty or guarantee of the accuracy or completeness of information in this document.
[2023-09-11 15:45] LABS: Color, Urine Yellow (Yellow); Glucose, Dipstick Normal (Normal); Ketone-Dipstick Negative (Negative); Leukocyte Esterase-Dipstick 25 /ul (Negative); Nitrite-Dipstick Negative (Negative); Occult Blood-Urine Negative /ul (Negative); Protein-Dipstick Negative (Negative); Urine Bilirubin Dipstick Negative (Negative); Urine Clarity Clear (Clear); Urine Urobilinogen Normal (Normal)
== END | disposition home or self-care (01) ==
LOC: LABSPEC 12:08
PROVIDERS: PCP Family Medicine; Referring Provider Family Medicine; Visit Provider Family Medicine
DX: R30.0 Dysuria (principal)
CPT/HCPCS: 81001

== ENCOUNTER → 2024-03-04 | Outpatient (CLI) | payer MEDICARE, BC, SELFPAY ==
[2024-03-06 15:20] LABS: Vitamin B12 457 pg/mL (211-911); Vitamin D,25 Hydroxy 54.1 ng/mL
== END | disposition home or self-care (01) ==
LOC: BIMLAB 11:41
PROVIDERS: PCP Family Medicine; Referring Provider Family Medicine; Visit Provider Family Medicine
DX: E53.8 Deficiency of other specified B group vitamins (principal); M81.0 Age-related osteoporosis without current pathological fracture
CPT/HCPCS: 36415; 82306; 82607

== ENCOUNTER → 2024-07-09 | Outpatient (CLI) | payer MEDICARE, BC, SELFPAY ==
[2024-07-09 15:07] LABS: Absolute Lymphocyte Count 1.54 X10^3/uL (0.83-4.51); Absolute Neutrophil Count 2.9 X10^3/uL (2.0-7.7); Basophil# 0.04 X10^3/uL; Basophil% 0.8 % (0-1); Eosinophil# 0.13 X10^3/uL; Eosinophils% 2.5 % (0-5); Hematocrit 39.3 % (37-47); Hemoglobin 12.4 g/dL (12.0-15.0); Lymphocyte # 1.54 X10^3/ul (0.83-4.51); Lymphocyte % 29.8 % (19-41); Mean Corp Hgb Conc 31.6 g/dL (32-36); Mean Corpuscular Hgb 31.3 pg (27.0-32.0); Mean Corpuscular Volume 99.2 fL (81-99); Monocyte# 0.55 X10^3/uL; Monocyte% 10.6 % (0-10); NRBC Flagged by Analyzer 0 % (0-5); Neutrophil % 56.1 % (47-70); Platelet Count 192 K/mm3 (150-450); RBC Distribution Width CV 13.2 % (11.6-14.6); RBC Distribution Width SD 48.6 fl (35.1-43.9); Red Blood Count 3.96 M/mm3 (4.2-5.4); White Blood Count 5.2 K/mm3 (4.4-11.0)
[2024-07-09 15:25] LABS: Vitamin B12 759 pg/mL (211-911)
[2024-07-09 15:26] LABS: ALB/GLOB Ratio 1.1 RATIO (0.9-2.4); AST(SGOT) 30 U/L (15-37); Alanine Aminotransfer ALT/SGPT 25 U/L (13-56); Albumin, Serum 3.9 g/dL (3.2-5.0); Alkaline Phosphatase 60 U/L (45-117); Anion Gap 5 (5-15); BUN 17 mg/dL (7-18); BUN/Creat Ratio 20.6 RATIO (10-20); Calcium,Total 9.6 mg/dL (8.5-10.1); Chloride 103 mmol/L (98-107); Creatinine, Serum 0.83 mg/dL (0.55-1.02); EST Glomerular Filtration Rate 70 mL/min (>60); Est Glom Filt Rate - Afr Amer 85 mL/min (>60); Globulin 3.4 g/dL (2.2-4.2); Glucose 82 mg/dL (74-106); Potassium 4.6 mmol/L (3.5-5.1); Protein, Total 7.3 g/dL (6.4-8.2); Sodium Level 138 mmol/L (136-145)
== END | disposition home or self-care (01) ==
LOC: BIMLAB 11:47
PROVIDERS: PCP Family Medicine; Referring Provider Family Medicine; Visit Provider Family Medicine
DX: I50.9 Heart failure, unspecified (principal); E53.8 Deficiency of other specified B group vitamins
CPT/HCPCS: 36415; 80053; 80162; 82607; 85025

== ENCOUNTER 2025-01-20 11:48 | Emergency (ER) | payer MEDICARE, BC, SELFPAY ==
[2025-01-20] VITALS (11 sets, daily range): BP systolic 102–175; BP diastolic 63–96; PULSE 77–100; RESP 16–26; TEMP 36.3–36.6; O2SAT 91–98; BMI 17.5
--- NOTE | 2025-01-20 12:28 | EKG12_ITS ---
Test Reason : Blood Pressure : */* mmHG Vent. Rate : 93 BPM Atrial Rate : * BPM P-R Int : * ms QRS Dur : 86 ms QT Int : 376 ms P-R-T Axes : * 88 75 degrees QTcB Int : 467 ms Atrial fibrillation Abnormal ECG Confirmed by SALVATORE LUTHER, KOBY ([id number]), photography editor ASTRID MERINO ([id number]) on 01/21/2025 10:34:40 AM Referred By: Confirmed By: KOBY CHASE MD
--- NOTE | 2025-01-20 12:36 | ED.VIS.DYS ---
HPI History of Present Illness Chief Complaint: Shortness of Breath Informant: patient and family Narrative Narrative: Patient is an 84-year-old female with history of persistent atrial fibrillation (not on any anticoagulation), heart failure with preserved ejection fraction, mitral valve insufficiency, malnutrition, pulmonary hypertension and hypothyroidism presenting with shortness of breath and right sided chest discomfort. She denies any falls or injuries. She states she has been more short of breath has progressed over the past 1 to 2 weeks. Denies any leg swelling. Notes that she does intermittently have some left-sided chest pain when she bends down for the past 5 days. She she has had a mild cough that is only slightly productive. Denies any fever. Had the flu around [facility] but that was a month ago. Did recently go up on her Prozac from 10 mg to 20 mg on Sunday (4 days ago) is not sure if that is related. Has 52 been on Eliquis and digoxin for A-fib but is no longer on any anticoagulation due to easy bleeding. Denies any history of DVT or PE. No other complaints or concerns reported at this time. Notes that she had a bad night last night and had a hard time breathing. Did receive Tylenol this morning which did help her right sided chest discomfort. [facility] Medical History (HFpEF) heart failure with preserved ejection fraction Vitamin B12 deficiency Chronic back pain Hip fracture Persistent atrial fibrillation Nonrheumatic mitral (valve) insufficiency Chronic systolic (congestive) heart failure Pleural effusion CAP (community acquired pneumonia) Sepsis Hypotension Nonrheumatic mitral (valve) prolapse Hypothyroidism History of basal cell carcinoma Anxiety and depression A-fib History of cataract Heart murmur GERD (gastroesophageal reflux disease) IBS (irritable bowel syndrome) History of hepatitis Hormone replacement therapy Home Medications ?Medication ?Instructions ?Recorded ?Last Taken ?Type multivitamin with minerals 1 tab PO DAILY supplement 02/24/19 07/24/19 History triamcinolone acetonide 0.1 % 1 applic topical DAILY #15 grams 10/25/21 Unknown Rx topical cream psyllium husk 0.4 gram capsule 0.4 g PO DAILY 01/17/22 Unknown History (Daily Fiber) cholecalciferol (vitamin D3) 25 25 mcg PO DAILY 03/13/22 Unknown History mcg (1,000 unit) tablet food supplemt, lactose-reduced 120 ml PO DAILY PRN supp 04/30/23 Unknown History 0.08 gram-1.5 kcal/mL oral liquid ascorbic acid (vitamin C) 500 mg 250 mg PO DAILY 10/29/23 Unknown History tablet mecobalamin (vitamin B12) 500 mcg 500 mcg PO DAILY 12/11/23 Unknown History chewable tablet metoprolol tartrate 25 mg tablet 25 mg PO DAILY bp #90 tabs 05/07/24 Unknown Rx hydrocodone-acetaminophen 5-325mg 1 tab PO QHS PRN pain 09/15/24 Unknown History 5mg-325mg furosemide 20 mg tablet 20 mg PO DAILY #90 tabs 10/08/24 Unknown Rx ibuprofen 200 mg tablet 200 mg PO DAILY PRN fever or pain 10/08/24 Unknown History nystatin 100,000 unit/gram topical 1 applic topical DAILY PRN skin 10/08/24 Unknown History cream irritation quetiapine 100 mg tablet 50 mg (1/2 x 100 mg) PO QHS #60 10/08/24 Unknown Rx tabs fluoxetine 10 mg capsule 10 mg PO DAILY 01/20/25 Unknown History furosemide 20 mg tablet (Lasix) 40 mg (2 x 20 mg) PO DAILY 5 days 01/20/25 Unknown Rx #10 tabs omeprazole 20 mg capsule,delayed 20 mg PO DAILY 01/20/25 Unknown History release polyethylene glycol 3350 17 17 g PO DAILY PRN constipation 01/20/25 Unknown History gram/dose oral powder (ClearLax) zinc acetate 50 mg (zinc) capsule 50 mg PO DAILY 01/20/25 Unknown History Allergy/AdvReac Type Severity Reaction Status Date / Time milk AdvReac Mild gas Verified 10/08/24 11:07 wheat AdvReac Mild Abd Verified 10/08/24 11:07 cramps/diarrhea Family History Grandmother Colon cancer Grandfather Myocardial infarction Mother Heart disease Myocardial infarction Parkinsons Surgical History History of cholecystectomy History of hysterectomy Social History Smoking Status: Never smoker alcohol intake: never substance use type: other details: marijuana tea caffeine: Yes Type: tea what type of physical activity do you participate in: none ROS ROS ED Cardiovascular Cardiovascular: Reports chest pain Respiratory/Chest Respiratory/Chest: Reports cough and dyspnea Gastrointestinal Gastrointestinal: Denies abdominal pain, diarrhea, nausea or vomiting Genitourinary Genitourinary ED: Denies dysuria Musculoskeletal Musculoskeletal: Denies arthralgias or myalgias Integumentary Denies rash Neurologic Neurologic: Denies weakness Psychiatric Psychiatric: Reports anxiety Hematologic/Lymphatic Hematologic/Lymphatic: Denies easy bleeding or easy bruising EXAM Physical Exam Const Vital Signs: 01/20/25 11:48 01/20/25 12:09 01/20/25 12:50 Temperature 97.4 F L 97.6 F L Temperature Source Temporal Oral Pulse Rate 97 92 Respiratory Rate 16 26 H Respiratory Effort Normal Non-Labored Respiratory Depth Normal Respiratory Pattern Normal Blood Pressure 131/86 H 143/81 H Blood Pressure Mean 101 101 Pulse Ox 98 94 Oxygen Delivery Method Room Air Room Air Room Air 01/20/25 12:52 01/20/25 13:00 01/20/25 14:04 Temperature 97.8 F Temperature Source Oral Pulse Rate 92 100 Respiratory Rate 23 H 26 H Respiratory Effort Respiratory Depth Respiratory Pattern Blood Pressure 138/76 H 175/96 H Blood Pressure Mean 96 122 Pulse Ox 95 94 91 Oxygen Delivery Method Room Air Room Air Room Air 01/20/25 14:09 01/20/25 14:42 Temperature Temperature Source Pulse Rate 77 Respiratory Rate 22 H Respiratory Effort Respiratory Depth Respiratory Pattern Blood Pressure 143/94 H Blood Pressure Mean 110 Pulse Ox 94 93 Oxygen Delivery Method Room Air Room Air Positive well developed Constitutional Narrative: Thin General Appearance ED: well developed HEENT Reports moist mucous membranes Eyes PERRL Neck supple Neck Narrative: Mild JVD Chest Wall Chest Narrative: Mild tenderness to palpation of the right lower anterior and mid axillary chest wall Resp normal respiratory effort Resp Narrative: Mildly diminished breath sounds at the bases Auscultation: Negative for rhonchi or wheezes Cardio regular rate and regular rhythm GI non-tender and non-distended Auscultation: normoactive bowel sounds Palpation: soft; Negative for tender Extremity normal to inspection General Extremety ED: Negative for edema General Extremity: Negative for edema Neuro oriented x3 Sensorium / Orientation: alert Motor Exam: Negative for general weakness Psych mental status grossly normal Skin no wounds MDM MDM MDM Narrative Medical decision making narrative: Patient evaluated for chest pain and associated shortness of breath. Numerous subacute ongoing over the past week or so. Differential includes heart failure exacerbation, pneumonia, pleural effusion, ACS, PE possible referred GI symptoms. Patient is given Tylenol for pain as she did take a dose this morning with some improvement. After that patient did start having dry heaves. Is given a dose of Zofran. Okay CBC largely normal. D-dimer normal for age I do not think she requires further workup for PE. CMP largely unremarkable. She has very mild elevation of her AST which is nonspecific and otherwise has a normal bilirubin and alkaline phosphatase. Her proBNP is elevated at 3460 however I do not have a prior to compare to. Lipase is normal. Low suspicion for referred cardiac symptoms. TSH mildly elevated 8.9 which could be consistent with some mild hypothyroid. I do not think this correlates with her symptoms today and I do not think presentation is consistent with thyroid storm or myxedema coma. Most consistent with fluid overload. Chest x-ray viewed by myself and with radiology does show 5 consistent with pleural effusion and CHF. Patient ambulated her O2 saturation goes from 94-92. Discussed admission versus treatment at home. Patient feels comfortable increase her Lasix and providing treatment at home. I did discuss with Dr. Julian, cardiology on-call who is agreeable. Will increase her lasix 40 mg daily and have her follow-up with cardiology. Patient is made for an appointment this coming at 2 PM. Lab Data Attestation: I reviewed the patient's lab results. Labs: Laboratory Results - last 24 hr 01/20/25 12:38 WBC 7.4 RBC 4.29 Hgb 13.5 Hct 40.6 MCV 94.6 MCH 31.5 MCHC 33.3 RDW Std Deviation 46.8 H RDW Coeff of Karis 13.4 Plt Count 213 MPV 10.2 Immature Gran % (Auto) 0.400 Neut % (Auto) 68.5 Lymph % (Auto) 20.3 [place] % (Auto) 8.5 Eos % (Auto) 1.4 Baso % (Auto) 0.9 Absolute Neuts (auto) 5.1 Absolute Lymphs (auto) 1.50 Nucleated RBC % 0 D-Dimer Quant (PE/DVT) 0.63 H* Sodium 135 Potassium 4.5 Chloride 98 Carbon Dioxide 24.3 Anion Gap 12 BUN 20 H Creatinine 0.76 Estim Creat Clear Calc 43.40 L Est GFR (MDRD) Non-Af 78 BUN/Creatinine Ratio 26.3 H Glucose 96 Calcium 9.5 Total Bilirubin 0.78 AST 57 H ALT 31 Alkaline Phosphatase 73 Troponin T High Sens 12 NT pro BNP II 3460 H Total Protein 7.2 Albumin 4.2 Globulin 3.0 Albumin/Globulin Ratio 1.4 Lipase 12 L TSH 8.900 H Radiography Chest X-Ray - ED: 2 View, Read by ED Physician, Read by Radiologist, Chronic Changes and CHF Diagnostic Testing: Clinical Impression(s) from Imaging Studies Chest X-Ray 01/20/25 14:11 IMPRESSION: Vascular congestion. Small bilateral pleural effusions with bibasilar infiltration and/or atelectasis worse on the right side. Reading Location: [place] [address] Rhythm Strip Rhythm Strip: A-fib Rate: 93 Ectopy: None EKG Initial EKG: Attestation: I personally reviewed and interpreted this EKG as follows: Interpretation: Atrial Fibrillation Comments: Atrial fibrillation rate of 93 bpm Normal axis Normal intervals Normal ST segments Compared to prior EKG on 12/05/2024?no significant change Prior EKG tracings: available for review Prior: Unchanged Management Discussion w/another healthcare provider: Diabetes Educator (cardiology ) Discharge Plan Triage Chief Complaint: Shortness of Breath ED Provider: Laverne Elena Dx/Rx/DC Orders Clinical Impression: (HFpEF) heart failure with preserved ejection fraction, Dyspnea Instructions: ED CHF Left Side, ED Dyspnea Prescriptions: New furosemide [Lasix] 20 mg tablet 40 mg PO DAILY 5 Days Qty: 10 0RF No Action cholecalciferol (vitamin D3) 25 mcg (1,000 unit) tablet 25 mcg PO DAILY ascorbic acid (vitamin C) 500 mg tablet 250 mg PO DAILY triamcinolone acetonide 0.1 % cream 1 applic topical DAILY Qty: 15 0RF Patient Comments: NOT SURE OF THIS MEDICATION psyllium husk [Daily Fiber] 0.4 gram capsule 0.4 g PO DAILY mecobalamin (vitamin B12) 500 mcg tablet,chewable 500 mcg PO DAILY nystatin 100,000 unit/gram cream 1 applic topical DAILY PRN (Reason: skin irritation) ibuprofen 200 mg tablet 200 mg PO DAILY PRN (Reason: fever or pain) quetiapine 100 mg tablet 50 mg PO QHS Qty: 60 1RF furosemide 20 mg tablet 20 mg PO DAILY Qty: 90 3RF hydrocodone-acetaminophen 5-325 mg tablet 1 tab PO QHS PRN (Reason: pain) multivitamin with minerals 1 EACH tablet 1 tab PO DAILY food supplemt, lactose-reduced 0.08 gram-1.5 kcal/mL liquid 120 ml PO DAILY PRN (Reason: supp) polyethylene glycol 3350 [ClearLax] 17 gram/dose powder 17 g PO DAILY PRN (Reason: constipation) zinc acetate 50 mg (zinc) capsule 50 mg PO DAILY fluoxetine 10 mg capsule 10 mg PO DAILY omeprazole 20 mg capsule,delayed release(DR/EC) 20 mg PO DAILY metoprolol tartrate 25 mg tablet 25 mg PO DAILY Qty: 90 3RF Primary Care Provider: Daljit Sen Referrals: Jasper Julian MD [Med Staff - Active Staff] - 01/22/25 2:00 pm Daljit Sen, DO [Primary Care Provider] - Activity Restrictions/Additional Instructions: Please return to the ER if you feel you are worsening. Follow-up with cardiology on at 2 PM as we discussed. Take a total of 40 mg of Lasix daily with your first dose this evening. You do not need to take your daily 20 mg also. Print Language: Mosotho Disposition Disposition: Home, Self Care
[2025-01-20 12:48] LABS: Absolute Neutrophil Count 5.1 X10^3/uL (2.0-7.7); Basophil# 0.07 X10^3/uL; Basophil% 0.9 % (0-1); Eosinophils% 1.4 % (0-5); Hematocrit 40.6 % (37-47); Hemoglobin 13.5 g/dL (12.0-15.0); Lymphocyte % 20.3 % (19-41); Mean Corp Hgb Conc 33.3 g/dL (32-36); Mean Corpuscular Hgb 31.5 pg (27.0-32.0); Mean Corpuscular Volume 94.6 fL (81-99); Mean Platelet Vol. 10.2 fl (6.2-12.0); Monocyte# 0.63 X10^3/uL; Monocyte% 8.5 % (0-10); NRBC Flagged by Analyzer 0 % (0-5); Neutrophil # 5.05 X10^3/uL (2.7-7.7); Neutrophil % 68.5 % (47-70); Platelet Count 213 K/mm3 (150-450); RBC Distribution Width CV 13.4 % (11.6-14.6); RBC Distribution Width SD 46.8 fl (35.1-43.9); Red Blood Count 4.29 M/mm3 (4.2-5.4); White Blood Count 7.4 K/mm3 (4.4-11.0)
[2025-01-20] MEDS: Acetaminophen 325 MG Tablet PO (12:50)
[2025-01-20 13:16] LABS: ALB/GLOB Ratio 1.4 RATIO (0.9-2.4); AST(SGOT) 57 U/L (<=31); Alanine Aminotransfer ALT/SGPT 31 U/L (<=34); Albumin, Serum 4.2 g/dL (3.4-4.8); Alkaline Phosphatase 73 U/L (35-104); Anion Gap 12 (5-15); BUN 20 mg/dL (4-19); BUN/Creat Ratio 26.3 RATIO (10-20); Calcium,Total 9.5 mg/dL (7.6-11.0); Carbon Dioxide 24.3 mmol/L (21.0-32.0); Chloride 98 mmol/L (98-108); Creatinine, Serum 0.76 mg/dL (0.70-1.20); EST Glomerular Filtration Rate 78 (>60); Glucose 96 mg/dL (70-99); Lipase 12 U/L (13-75); Potassium 4.5 mmol/L (3.3-5.1); Pro- Brain NATRIURETIC PEPTIDE 3460 pg/mL (<=1800); Protein, Total 7.2 g/dL (5.9-8.4); Sodium Level 135 mmol/L (133-145); Total Bilirubin 0.78 mg/dL (0.00-1.30); Troponin T High Sensitivity 12 ng/L (<=14)
[2025-01-20 13:18] LABS: D-Dimer Quantitative (DVT/PE) 0.63 FEU/ug/m (0.27-0.49)
[2025-01-20] MEDS: Ondansetron 4 MG/2 ML Vial IV (14:05)
--- NOTE | 2025-01-20 14:11 | RAD_ITS ---
PROCEDURE: CHEST PA AND LATERAL 01/20/2025 REASON FOR EXAM: SOB TECHNIQUE: Frontal and lateral views of the chest. COMPARISON: None FINDINGS: Hardware: EKG electrodes are seen. Heart: Heart size upper limits of normal. Mediastinum: Unremarkable Lungs: Small bilateral pleural effusions right greater than left with bibasilar atelectasis and/or infiltration worse on the right side. Vascular congestion. Bones: Degenerative changes are identified within the thoracic spine. RAD/Chest PA and Lateral IMPRESSION: Vascular congestion. Small bilateral pleural effusions with bibasilar infiltration and/or atelectasi s worse on the right side. Reading Location: [place] [address]
[2025-01-20 15:25] LABS: Troponin T High Sens 2 HR 10 ng/L (<=14)
== END 2025-01-20 15:20 | disposition home or self-care (01) ==
PROVIDERS: Emergency Provider Emergency Medicine; PCP Family Medicine; Visit Provider Emergency Medicine
DX: I50.32 Chronic diastolic (congestive) heart failure (principal); I48.19 Other persistent atrial fibrillation; R06.02 Shortness of breath; Z79.899 Other long term (current) drug therapy
CPT/HCPCS: 36415; 71046; 80053; 83690; 83880; 84443; 84484; 85025; 85379; 93005; 96374; 99284; A4216; J2405

== ENCOUNTER → 2025-03-03 | Outpatient (CLI) | payer MEDICARE, BC, SELFPAY ==
--- OUTSIDE RECORDS SUMMARY | 2025-03-03 10:42 | XMS RPT_ITS | CCD ---
Author Organization [facility] Care Team Providers Care Radio Division Officer Name Role Phone FISH, LUCY Unavailable Unavailable BROWN, RONNI Unavailable Unavailable FISH, LUCY Unavailable Unavailable BROWN, RONNI Unavailable Unavailable FISH, LUCY Unavailable Unavailable LETTY, RONNI Unavailable Unavailable Dr. Ronni Sen Primary Care Provider [phone] Dr. Ronni Sen Attending Provider Dr. Ronni Sen Referring Provider [phone] Ronni Sen Primary Care Provider [phone] Dr. Ronni Sen Referring Provider ARCHIE Mckoy Attending Provider Unavailab Dr. Ronni Flores Attending Provider [phone] Ronni Sen Primary Care Provider [phone] Dr. Ronni Sen Attending Provider [phone] Ronni Sen Referring Provider Dr. Leonidas Pereira Attending Provider [phone] Dr. Ronni Sen Primary Care Provider Dr. Ronni Sen Attending Provider Dr. Ronni Sen Referring Provider [phone] Ronni Sen Primary Care Provider [phone] Dr. Ronni Sen Attending Provider Dr. Ronni Sen Referring Provider [phone] Yudi ALMANZA, [place] Soraya Mcclain Attending Provider Dr. Jasper Julian Attending Provider Roof EMERGENCY ROOM TECHNICIAN, EMERGENCY ROOM TECHNICIAN-C Julio Sanabria Attending Provider [phone] Letty GONZALEZ, Dr. Ronni Johnson Primary Care Provider [phone] Dr. Ronni Sen DO Attending Provider [phone] Dr. Ronni Sen DO Referring Provider [phone] Dr. Goyo Díaz MD Attending Provider Dr. Laverne Elena DO Emergency Provider [phone] Brown, Ronni R Referring Unavailable Brown, Ronni R Primary Care Unavailable Brown, Ronni R Attending Unavailable Brown, Ronni R Primary Care Unavailable Soraya Dickson Attending Unavail able Brown, Ronni R Referring Unavailable Brown, Ronni R Primary Care Unavailable Laverne Elena Attending Unavailable Brown, Ronni R Referring Unavailable Brown, Ronni R Primary Care Unavailable Brown, Ronni R Attending Unavailable Brown, Ronni R Primary Care Unavailable Brown, Ronni R Attending Unavailable Letty, Ronni R Referring Unavailable Goyo Díaz Attending Unavailable Brown, Ronni R Primary Care Unavailable Brown, Ronni R Referring Unavailable Goyo Díaz Attending Unavailable Brown, Ronni R Primary Care Unavailable Brown, Ronni R Referring Unavailable Brown, Ronni R Referring Unavailable Brown, Ronni R Primary Care Unavailable Brown, Ronni R Attending Unavailable Brown, Ronni R Primary Care Unavailable Brown, Ronni R Attending Unavailable Brown, Ronni R Referring Unavailable Brown, Ronni R Referring Unavailable Goyo Díaz Attending Unavailable Brown, Ronni R Primary Care Unavailable Allergies Allergy Classification Reported Allergen(s) Allergy Type Date of Onset Reaction(s) Facility (1 source) cow milk allergenic extract Drug Allergy 5 gas [facility] (1 source) Wheat preparation Drug Allergy 5 Abd cramps/diarrhea [facility] (1 source) Milk Drug allergy (disorder) [address] [place] [address] Repository (1 source) Wheat preparation Drug Allergy 5 [facility] Repository Medications Current Medications Medication Drug Class(es) Dates Sig (Normalized) Sig (Original) acetaminophen 325 mg / HYDROcodone bitartrate 5 mg oral tablet (16 sources) Opioid Agonist Start: 09-15-2024 Hydrocodone-Acetam inophen 5-325 mg tablet Active 1 {tbl} PO AT BEDTIME as needed for pain September 15, 2024 1:00am Start: 10-29-2023 End: 05-15-2024 Hydrocodone-Acetaminophen 5- 325 mg tablet Discontinued 1 {tbl} PO AT BEDTIME as needed for pain April 15, 2024 May 14, 2024 12:00am May 15, 2024 12:04am Start: 09-11-2023 End: 10-21-2023 Hydrocodone-Acetaminophen 5- 325 mg tablet Discontinued 0.5 {tbl} PO AT BEDTIME as needed for pain September 11, 2023 October 20, 2023 1:00am October 21, 2023 1:01am Start: 11-03-2020 End: 05-21-2021 Hydrocodone-Acetaminophen 5- 325 mg tablet Discontinued 0.5 {tbl} PO TWICE A DAY as needed for pain April 21, 2021 May 20, 2021 12:00am May 21, 2021 12:01am Start: 11-03-2020 End: 05-21-2021 take 0.5 tablet by mouth twice daily Hydrocodone-Acetaminophen Discontinued 0 .5 TABLET PO TWICE A DAY April 21, 2021 May 21, 2021 12:01am ascorbic acid 500 mg oral tablet (5 sources) Vitamin C Start: 10-29-2023 Ascorbic Acid (Vitamin C) 500 mg tablet Active 250 mg PO DAILY October 29, 2023 3:05pm Start: 10-25-2022 End: 10-29-2023 take 1 tablet by mouth once daily Ascorbic Acid (Vitamin C) 500 mg tablet Discontinued 500 mg PO DAILY October 25, 2022 1:00am October 29, 2023 3:07pm cholecalciferol 0.025 mg oral tablet (20 sources) Vitamin D Start: 03-13-2022 take 1 tablet by mouth once daily Cholecalciferol (Vitamin D3) 25 mcg (1,000 unit) tablet Active 25 ug PO DAILY March 13, 2022 12:00am Start: 03-13-2022 End: 03-13-2022 take 1 tablet by mouth once daily Cholecalciferol (Vitamin D3) 125 mcg (5,000 unit) tablet Discontinued 125 ug PO DAILY March 13, 2022 12:00am March 13, 2022 11:57am Start: 10-01-2019 End: 03-13-2022 take 1 capsule by mouth once daily Cholecalciferol (Vitamin D3) 50 mcg (2,000 unit) capsule Discontinued 5000 U PO DAILY October 01, 2019 12:36pm March 13, 2022 11:47am Start: 07-25-2019 End: 10-01-2019 take 1 capsule by mouth once daily Cholecalciferol (Vitamin D3) 2,000 UNIT capsule Discontinued 2000 U PO DAILY July 25, 2019 1:00am October 01, 2019 12:40pm FLUoxetine 10 mg oral capsule (11 sources) Serotonin Reuptake Inhibitor Start: 01-20-2025 take 1 capsule by mouth once daily Fluoxetine 10 mg capsule Active 10 mg PO DAILY January 20, 2025 12:00am Start: 01-14-2025 End: 01-20-2025 take 1 capsule by mouth once daily Fluoxetine 20 mg capsule Discontinued 20 mg PO daily 60 January 14, 2025 12:11pm January 20, 2025 1:01pm Start: 12-11-2023 End: 01-14-2025 take 1 capsule by mouth once daily Fluoxetine 10 mg capsule Discontinued 10 mg PO daily September 15, 2024 1:00am October 08, 2024 12:45pm Start: 05-31-2021 End: 09-15-2024 take 1 tablet by mouth once daily Fluoxetine 20 mg tablet Discontinued 20 mg PO DAILY May 31, 2021 12:00am September 15, 2024 2:45pm Food Supplemt, Lactose-Reduced (15 sources) Start: 04-30-2023 take 1 mL by mouth once daily Food Supplemt, Lactose-Reduced Active 120 ML PO DAILY April 30, 2023 2:42pm Start: 03-13-2022 End: 04-30-2023 take 1 mL by mouth once daily Food Supplemt, Lactose-R educed Discontinued 120 ML PO DAILY March 13, 2022 11:48am April 30, 2023 2:42pm Start: 03-13-2022 take 1 mL by mouth once daily Food Supplemt, Lactose-Reduced Active 120 ML PO DAILY March 13, 2022 11:48am Start: 03-13-2022 take 1 mL by mouth once daily Food Supplemt, Lactose-Reduced Active 120 ML PO DAILY March 13, 2022 10:48am Start: 07-28-2019 End: 03-13-2022 take 1 mL by mouth four times daily Food Supplemt, Lactose-Reduced Discontinued 120 ML PO 4 TIMES DAILY July 28, 2019 7:50pm March 13, 2022 11:50am Start: 07-28-2019 End: 03-13-2022 take 1 mL by mouth four times daily Food Supplemt, Lactose-Reduced Discontinued 120 ML PO 4 TIMES DAILY July 28, 2019 6:50pm March 13, 2022 10:50am Start: 07-28-2019 take 1 mL by mouth f our times daily Food Supplemt, Lactose-Reduced Active 120 ML PO 4 TIMES DAILY July 28, 2019 7:50pm Start: 02-27-2019 End: 07-28-2019 take 1 mL by mouth four times daily Food Supplemt, Lactose-Reduced Discontinued 120 ML PO 4 TIMES DAILY February 27, 2019 2:59pm July 28, 2019 7:50pm Start: 02-27-2019 End: 07-28-2019 take 1 mL by mouth four times daily Food Supplemt, Lactose-Reduced Discontinued 120 ML PO 4 TIMES DAILY February 27, 2019 12:00am July 28, 2019 7:50pm Start: 02-27-2019 End: 07-28-2019 take 1 mL by mouth four times daily Food Supplemt, Lactose-Reduced Discontinued 120 ML PO 4 TIMES DAILY February 26, 2019 11:00pm July 28, 2019 6:50pm Food Supplemt, Lactose-Reduc ed 0.08 gram-1.5 kcal/mL liquid (2 sources) Start: 04-30-2023 Food Supplemt, Lactose-Reduced 0.08 gram-1.5 kcal/mL liquid Active 120 mL PO DAILY as needed for supp April 30, 2023 2:42pm Start: 03-13-2022 End: 04-30-2023 take 1 mL by mouth once daily Food Supplemt, Lactose-R educed 0.08 gram-1.5 kcal/mL liquid Discontinued 120 mL PO DAILY March 13, 2022 11:48am April 30, 2023 2:42pm furosemide 20 mg oral tablet (20 sources) Loop Diuretic Start: 01-20-2025 take 2 tablets by mouth once daily Furosemide (Lasix) 20 mg tablet Active 40 mg PO DAILY 10 January 20, 2025 12:00am Start: 03-04-2021 End: 10-08-2024 take 1 tablet by mouth once daily Furosemide 20 mg tablet Active 20 mg PO DAILY October 08, 2024 12:45pm Start: 08-07-2019 End: 01-04-2021 take 1 tablet by mouth once daily Furosemide 20 mg tablet Discontinued 20 mg PO DAILY October 29, 2019 9:31am January 04, 2021 12:17pm On Hold: low BP Start: 07-25-2019 End: 08-07-2019 take 1 tablet by mouth twice daily Furosemide (Lasix) 20 mg tablet Discontinued 20 mg PO TWICE A DAY July 25, 2019 1:00am August 07, 2019 12:35pm Start: 06-27-2019 End: 07-25-2019 take 1 tablet by mouth once daily Furosemide 40 mg tablet Discontinued 40 mg PO DAILY June 27, 2019 11:58am July 25, 2019 10:42am Start: 05-07-2019 End: 06-27-2019 take 1 tablet by mouth twice daily Furosemide 40 mg tablet Discontinued 40 mg PO TWICE A DAY May 07, 2019 10:03am June 27, 2019 11:58am Start: 03-21-2019 End: 05-07-2019 take 2 tablets by mouth twice daily Furosemide 20 mg tablet Discontinued 40 mg PO TWICE A DAY March 21, 2019 11:28am May 07, 2019 10:00am Start: 03-21-2019 End: 05-07-2019 take 40 mg by mouth twice daily Furosemide Discontinue d 40 MG PO TWICE A DAY March 21, 2019 11:28am May 07, 2019 10:00am Start: 03-16-2019 End: 03-21-2019 take 1 tablet by mouth twice daily Furosemide 20 mg tablet Discontinued 20 mg PO TWICE A DAY 60 March 16, 2019 6:05pm March 21, 2019 11:30am Start: 02-27-2019 End: 03-16-2019 take 1 tablet by mouth twice daily Furosemide 40 MG tablet Discontinued 40 mg PO TWICE DAILY 60 February 27, 2019 12:00am March 16, 2019 6:06pm Start: 02-20-2019 End: 02-27-2019 take 1 tablet by mouth twice daily Furosemide 20 mg tablet Discontinued 20 mg PO TWICE A DAY 60 February 20, 2019 1:31pm February 27, 2019 3:03pm Start: 02-18-2019 End: 02-20-2019 take 1 tablet by mouth once daily Furosemide 20 mg tablet Discontinued 20 mg PO DAILY February 18, 2019 12:00am February 20, 2019 1:32pm Start: 12-07-2018 End: 12-10-2018 take 1 tablet by mouth twice daily Furosemide 20 MG tablet Discontinued 20 mg PO BID@1000,1800 60 December 07, 2018 12:00am December 10, 2018 4:23pm ibuprofen 200 mg oral tablet (7 sources) Nonsteroidal Anti-inflammatory Drug Start: 10-08-2024 take 1 tablet by mouth once daily as needed for pain Ibuprofen 200 mg tablet Active 200 mg PO DAILY as needed for fever or pain October 08, 2024 1:00am Start: 07-25-2019 End: 07-28-2019 take 1 tablet by mouth once daily as needed for pain Ibuprofen 200 MG tablet Discontinued 200 mg PO DAILY NEEDED as needed for Pain Score -06/12July 25, 2019 1:00am July 28, 2019 12:20pm mecobalamin (1 source) Start: 12-11-2023 take 1 tablet by mouth once daily Mecobalamin (Vitamin B12) 500 mcg tablet,chewable Active 500 ug PO DAILY December 11, 2023 12:00am metoprolol tartrate 25 mg oral tablet (20 sources) beta-Adrenergi c Steve Start: 04-30-2023 End: 05-07-2024 take 1 tablet by mouth once daily Metoprolol Tartrate 25 mg tablet Active 25 mg PO DAILY May 07, 2024 4:44pm Start: 01-17-2022 End: 04-30-2023 Metoprolol Tartrate 50 mg ta blet Discontinued 25 mg PO DAILY January 17, 2022 10:44am April 30, 2023 3:12pm Start: 01-17-2022 End: 04-30-2023 take 25 mg by mouth once daily Metoprolol Tartrate Dis continued 25 MG PO DAILY January 17, 2022 10:44am April 30, 2023 3:12pm Start: 09-12-2021 End: 01-17-2022 Metoprolol Tartrate 50 mg ta blet Discontinued 25 mg PO TWICE A DAY September 12, 2021 3:59pm January 17, 2022 10:54am Start: 09-12-2021 End: 01-17-2022 take 25 mg by mouth twice daily Metoprolol Tartrate Di scontinued 25 MG PO TWICE A DAY September 12, 2021 3:59pm January 17, 2022 10:54am Start: 03-04-2021 End: 03-04-2021 Metoprolol Tartrate 50 mg ta blet Discontinued 25 mg PO TWICE A DAY March 04, 2021 3:25pm March 04, 2021 4:13pm Start: 03-04-2021 End: 03-04-2021 take 25 mg by mouth twice daily Metoprolol Tartrate Di scontinued 25 MG PO TWICE A DAY March 04, 2021 3:25pm March 04, 2021 4:13pm Start: 02-24-2019 End: 02-27-2019 take 25-50 mg by mouth twice daily Metoprolol Tartrate Discontinued 25 - 50 MG PO TWICE A DAY February 24, 2019 3:44pm February 27, 2019 3:02pm Start: 02-05-2019 End: 09-12-2021 take 1 tablet by mouth twice daily Metoprolol Tartrate 50 mg tablet Discontinued 50 mg PO TWICE A DAY December 20, 2020 12:53pm March 04, 2021 3:26pm Start: 01-15-2019 End: 02-05-2019 take 1 tablet by mouth twice daily Metoprolol Tartrate 25 mg tablet Discontinued 25 mg PO TWICE A DAY January 15, 2019 12:00am February 05, 2019 2:20pm Multivitamin With Minerals (5 sources) Start: 02-24-2019 take 1 tablet by mouth once daily Multivitamin With Minerals Active 1 TABLET PO DAILY February 24, 2019 3:21pm Start: 02-24-2019 take 1 tablet by cira th once daily Multivitamin With Minerals Active 1 TABLET PO DAILY February 24, 2019 12:00am Start: 02-24-2019 take 1 tablet by cira th once daily Multivitamin With Minerals Active 1 TABLET PO DAILY February 23, 2019 11:00pm Multivitamin With Minerals 1 EACH tablet (1 source) Start: 02-24-2019 take 1 tablet by mouth once daily Multivitamin With Minerals 1 EACH tablet Active 1 {tbl} PO DAILY February 24, 2019 12:00am nystatin [id number] unt/ml topical cream (7 sources) Polyene Antifungal Start: 10-08-2024 Nystatin 100,000 unit/gram cream Active 1 NMA TOPICAL DAILY as needed for skin irritation October 08, 2024 1:00am Start: 10-25-2021 End: 10-25-2022 Nystatin 100,000 unit/gram o intment Discontinued 1 NMA TOPICAL DAILY October 25, 2021 1:00am October 25, 2022 12:32pm for use in the genital area Start: 10-25-2021 End: 10-25-2022 Nystatin Discontinued 1 APPL IC TOPICAL DAILY October 25, 2021 1:00am October 25, 2022 12:32pm for use in the genital area [place]-3 Fatty Acids (3 sources) Start: 10-25-2022 take 1000 mg by mouth once daily [place]-3 Fatty Acids Active 1000 MG PO DAILY October 25, 2022 1:00am omeprazole 20 mg delayed release oral capsule (20 sources) Proton Pump Inhibitor Start: 10-29-2023 End: 01-20-2025 take 1 capsule by mouth once daily Omeprazole 20 mg capsule,delayed release(DR/EC) Active 20 mg PO DAILY January 20, 2025 12:00am Start: 03-07-2023 End: 04-30-2023 take 1 capsule by mouth once daily Omeprazole 20 mg capsule,delayed release(DR/EC) Discontinued 20 mg PO DAILY March 07, 2023 12:00am April 30, 2023 2:41pm Start: 04-29-2020 End: 09-12-2021 take 1 capsule by mouth once daily Omeprazole 20 mg capsule,delayed release(DR/EC) Discontinued 20 mg PO DAILY January 06, 2021 8:05am March 04, 2021 3:26pm Start: 04-29-2020 End: 07-13-2020 Omeprazole 20 mg capsule,del ayed release(DR/EC) Discontinued NMA PO April 29, 2020 12:00am July 13, 2020 4:17pm Start: 02-07-2019 End: 02-18-2019 take 1 capsule by mouth once daily Omeprazole 20 mg capsule,delayed release(DR/EC) Discontinued 20 mg PO DAILY February 07, 2019 12:00am February 18, 2019 1:39pm polyethylene glycol 3350 [id number] mg powder for oral solution (12 sources) Osmotic Laxative Start: 06-20-2018 End: 01-20-2025 Polyethylene Glycol 3350 (Clearlax) 17 gram/dose powder Active 17 g PO DAILY as needed for constipation January 20, 2025 12:00am psyllium 400 mg oral capsule (6 sources) Start: 01-17-2022 Psyllium Husk (Daily Fiber) 0.4 gram capsule Active 0.4 g PO DAILY January 17, 2022 12:00am QUEtiapine 100 mg oral tablet (20 sources) Atypical Antipsychotic Start: 10-08-2024 Quetiap ine 100 mg tablet Active 50 mg PO AT BEDTIME 60 October 08, 2024 12:44pm Start: 03-13-2022 End: 10-08-2024 take 1 tablet by mouth at bedtime Quetiapine 100 mg tablet Discontinued 100 mg PO AT BEDTIME October 08, 2024 12:14pm October 08, 2024 12:45pm Start: 10-25-2021 End: 03-13-2022 take 4 tablets by mouth at bedtime Quetiapine (Seroquel) 25 mg tablet Discontinued 100 mg PO AT BEDTIME October 25, 2021 3:16pm March 13, 2022 11:50am Start: 03-04-2021 End: 10-25-2021 take 2 tablets by mouth at bedtime Quetiapine (Seroquel) 25 mg tablet Discontinued 50 mg PO AT BEDTIME March 04, 2021 3:25pm October 25, 2021 3:17pm Start: 05-19-2020 End: 03-04-2021 take 1 tablet by mouth twice daily Quetiapine (Seroquel) 25 mg tablet Discontinued 25 mg PO TWICE A DAY May 19, 2020 1:18pm March 04, 2021 3:26pm Start: 05-19-2020 End: 01-04-2021 take 1 tablet by mouth twice daily Quetiapine (Seroquel) 50 mg tablet Discontinued 50 mg PO TWICE A DAY December 23, 2020 3:40pm January 04, 2021 11:44am Start: 04-29-2020 End: 05-19-2020 Quetiapine (Seroquel) 25 mg tablet Discontinued 12.5 mg PO TWICE A DAY April 29, 2020 2:26pm May 19, 2020 1:21pm Start: 10-01-2019 End: 04-29-2020 take 1 tablet by mouth twice daily Quetiapine (Seroquel) 25 mg tablet Discontinued 25 mg PO TWICE A DAY 60 November 18, 2019 3:40pm April 29, 2020 2:26pm Start: 01-23-2019 End: 02-05-2019 take 1 tablet by mouth twice daily Quetiapine (Seroquel) 25 mg tablet Discontinued 25 mg PO TWICE A DAY 60 January 23, 2019 12:00am February 05, 2019 2:21pm triamcinolone acetonide 1 mg/ml topical cream (6 sources) Corticosteroid Start: 10-25-2021 Triamcinolone Acetonide 0.1 % cream Active 1 NMA TOPICAL DAILY 15 October 25, 2021 1:00am vitamin b12 1 mg/ml injectable solution (1 source) Vitamin B12 Start: 01-17-2022 inject 100 ug by intramuscular injection once cyanocobalamin (vitamin B-12) 1,000 mcg/mL injection solution Active 100 MCG IM ONCE 1 January 17, 2022 10:20am zinc acetate 50 mg oral capsule (1 source) Start: 01-20-2025 take 1 capsule by mouth once daily Zinc Acetate 50 mg (zinc) capsule Active 50 mg PO DAILY January 20, 2025 12:00am Completed/Discontinued Medications Medication Drug Class(es) Dates Sig (Normalized) Sig (Original) acetaminophen 325 mg oral tablet (6 sources) Start: 07-25-2019 End: 07-28-2019 take 1 tablet by mouth every six hours as needed for pain Acetaminophen 325 MG tablet Discontinued 325 mg PO EVERY 6 HOURS NEEDED as needed for Pain Score July 25, 2019 1:00am July 28, 2019 12:20pm albuterol 0.83 mg/ml inhalation solution (6 sources) beta2-Adrenergic Agonist Start: 02-24-2019 End: 02-27-2019 take 2.5 mg by inhalation every four hours Albuterol Sulfate 2.5 MG/3 ML solution for nebulization Discontinued 2.5 mg INHALATION EVERY 4 HOURS WHILE AWAKE February 24, 2019 12:00am February 27, 2019 3:03pm amiodarone hydrochloride 100 mg oral tablet (6 sources) Antiarrhythmic Start: 03-21-2018 End: 06-20-2018 take 1 tablet by mouth once daily Amiodarone 100 mg tablet Discontinued 100 mg PO daily March 21, 2018 12:00am June 20, 2018 2:02pm amoxicillin 500 mg oral capsule (4 sources) Penicillin-class Antibacterial Start: 12-06-2022 End: 03-07-2023 take 1 capsule by mouth three times daily Amoxicillin 500 mg capsule Discontinued 500 mg PO THREE TIMES A DAY 20 December 06, 2022 12:00am March 07, 2023 2:03pm apixaban 2.5 mg oral tablet (20 sources) Factor Xa Inhibitor Start: 01-04-2022 End: 12-11-2023 take 1 tablet by mouth twice daily Apixaban 2.5 mg tablet Discontinued 2.5 mg PO TWICE A DAY 180 September 12, 2023 3:54pm December 11, 2023 11:09am Take 1 tablet twice a day. Start: 01-04-2021 End: 01-04-2022 take 2.5 mg by mouth twice daily Apixaban 5 mg tablet Discontinued 2.5 mg PO TWICE A DAY 60 February 18, 2021 4:38pm January 04, 2022 8:19am Start: 01-04-2021 End: 01-04-2022 take 2.5 mg by mouth twice daily Apixaban Discontinued 2.5 MG PO TWICE A DAY 60 February 18, 2021 4:38pm January 04, 2022 8:19am Start: 01-15-2019 End: 01-04-2021 take 1 tablet by mouth twice daily Apixaban 5 mg tablet Discontinued 5 mg PO TWICE A DAY 180 October 11, 2020 2:20pm January 04, 2021 11:45am calcium carbonate 1250 mg oral tablet (6 sources) Start: 10-25-2021 End: 10-25-2022 take 1 tablet by mouth once daily Calcium Carbonate 500 mg calcium (1,250 mg) tablet Discontinued 500 mg PO DAILY October 25, 2021 1:00am October 25, 2022 12:33pm capsaicin 0.33 mg/ml topical cream (6 sources) Start: 08-07-2019 End: 10-01-2019 Capsaicin 56.6 GM cream Discontinued 56.6 g TP 4 TIMES DAILY NEEDED as needed for knee pain August 07, 2019 12:32pm October 01, 2019 12:36pm apply to dry skin up to 4 X's a day for arthritis pain celecoxib 200 mg oral capsule (6 sources) Nonsteroidal Anti-inflammatory Drug Start: 11-26-2017 End: 12-07-2018 take 1 capsule by mouth twice daily Celecoxib (Celebrex) 200 mg capsule Discontinued 200 mg PO TWICE A DAY November 26, 2017 12:00am December 07, 2018 11:06am clonazePAM 0.5 mg oral tablet (20 sources) Benzodiazepine Start: 02-18-2021 End: 05-31-2021 take 1 tablet by mouth at bedtime Clonazepam 0.5 mg tablet Discontinued 0.5 mg PO AT BEDTIME February 18, 2021 4:49pm May 31, 2021 1:42pm Start: 08-07-2019 End: 02-18-2021 take 0.25 mg by mouth at bedtime Clonazepam Discontinued 0.25 MG PO AT BEDTIME December 20, 2020 12:53pm February 18, 2021 4:56pm Start: 07-28-2019 End: 08-07-2019 take 0.25 mg by mouth at bedtime Clonazepam Discontinued 0.25 MG PO AT BEDTIME July 28, 2019 7:50pm August 07, 2019 5:43pm Start: 01-04-2018 End: 02-18-2021 take 0.25 mg by mouth at bedtime Clonazepam 0.5 mg tablet Discontinued 0.25 mg PO AT BEDTIME December 20, 2020 12:53pm February 18, 2021 4:56pm Start: 01-04-2018 End: 07-28-2019 take 0.25 mg by mouth at bedtime Clonazepam Discontinued 0.25 MG PO AT BEDTIME March 21, 2019 4:48pm July 28, 2019 7:50pm digoxin 0.125 mg oral tablet (20 sources) Cardiac Glycoside Start: 02-24-2019 End: 09-15-2024 take 1 tablet by mouth once daily Digoxin 125 mcg (0.125 mg) tablet Discontinued 125 ug PO DAILY July 09, 2024 12:34pm September 15, 2024 3:41pm Start: 01-04-2018 End: 01-24-2019 take 1 tablet by mouth once daily Digoxin 125 mcg tablet Discontinued 125 ug PO daily December 11, 2018 7:34am January 24, 2019 4:23pm estradiol 0.1 mg/ml vaginal cream (19 sources) Estrogen Start: 12-11-2023 End: 10-08-2024 Estradiol (Estrace) 0.01 % (0.1 mg/gram) cream Discontinued 1 g VAGINAL TWICE A WEEK 42.5 December 11, 2023 12:00am October 08, 2024 12:08pm Start: 10-09-2018 End: 12-10-2018 take 1 tablet by mouth once daily Estradiol 0.5 mg tablet Discontinued 0.5 mg PO DAILY October 09, 2018 11:51am December 10, 2018 4:19pm Start: 01-04-2018 End: 03-21-2018 take 1 tablet by mouth once daily Estradiol 0.5 mg tablet Discontinued 0.5 mg PO daily January 04, 2018 12:00am March 21, 2018 4:37pm folic acid 0.4 mg / vitamin b12 0.5 mg oral tablet (12 sources) Vitamin B12 Start: 07-25-2019 End: 09-12-2021 Vitamin Y58-Rsuvb Acid 1 EACH tablet Discontinued 1 {tbl} PO DAILY July 25, 2019 1:00am September 12, 2021 3:21pm Start: 07-25-2019 End: 09-12-2021 take 1 tablet by mouth once daily Vitamin G58-Rqlgs Acid Discontinued 1 TABLET PO DAILY July 25, 2019 1:00am September 12, 2021 3:21pm Start: 02-24-2019 End: 05-20-2019 Vitamin L16-Pbvsr Acid 1 EAC H tablet Discontinued 1 {tbl} PO DAILY February 24, 2019 12:00am May 20, 2019 2:36pm Start: 02-24-2019 End: 05-20-2019 take 1 tablet by mouth once daily Vitamin K04-Skvkx Acid Discontinued 1 TABLET PO DAILY February 24, 2019 12:00am May 20, 2019 2:36pm Food Supplemt, Lactose-Reduced 120 ML liquid (2 sources) Start: 07-28-2019 End: 03-13-2022 take 1 mL by mouth four times daily Food Supplemt, Lactose-Reduced 120 ML liquid Discontinued 120 mL PO 4 TIMES DAILY July 28, 2019 7:50pm March 13, 2022 11:50am Start: 02-27-2019 End: 07-28-2019 take 1 mL by mouth four times daily Food Supplemt, Lactose-Reduced 120 ML liquid Discontinued 120 mL PO 4 TIMES DAILY February 27, 2019 12:00am July 28, 2019 7:50pm haloperidol 1 mg oral tablet (20 sources) Typical Antipsychotic Start: 01-15-2019 End: 01-15-2019 take 0.5 mg by mouth once daily Haloperidol 1 mg tablet Discontinued 0.5 mg PO DAILY January 15, 2019 11:02am January 15, 2019 11:33am Start: 01-15-2019 End: 01-15-2019 take 0.5 mg by mouth once daily Haloperidol Discontinu ed 0.5 MG PO DAILY January 15, 2019 11:02am January 15, 2019 11:33am Start: 01-04-2018 End: 01-15-2019 take 1 tablet by mouth twice daily Haloperidol 1 mg tablet Discontinued 1 mg PO TWICE A DAY 60 May 09, 2018 8:59am January 15, 2019 11:04am imipramine hydrochloride 50 mg oral tablet (20 sources) Tricyclic Antidepressant Start: 05-20-2019 End: 05-19-2020 take 1 tablet by mouth at bedtime Imipramine Hcl 50 mg tablet Discontinued 50 mg PO AT BEDTIME 90 October 14, 2019 1:00pm May 19, 2020 1:17pm Start: 03-05-2019 End: 03-21-2019 take 1 tablet by mouth at bedtime Imipramine Hcl 50 mg tablet Discontinued 50 mg PO AT BEDTIME March 05, 2019 12:00am March 21, 2019 11:30am Start: 12-26-2018 End: 02-27-2019 take 1 tablet by mouth at bedtime Imipramine Hcl 50 mg tablet Discontinued 50 mg PO AT BEDTIME 90 December 26, 2018 12:00am February 27, 2019 3:04pm Start: 10-09-2018 End: 12-10-2018 take 1 tablet by mouth at bedtime Imipramine Hcl 50 mg tablet Discontinued 50 mg PO AT BEDTIME October 09, 2018 1:00am December 10, 2018 4:26pm lidocaine 0.05 mg/mg medicated patch (6 sources) Antiarrhythmic, Amide Local Anesthetic Start: 04-21-2021 End: 09-12-2021 Lidocaine 5 % adhesive patch,medicated Discontinued 1 NMA TOPICAL DAILY April 21, 2021 12:00am September 12, 2021 3:22pm leave on most painful area for up to 12 hrs linaclotide 0.145 mg oral capsule (6 sources) Guanylate Cyclase-C Agonist Start: 01-04-2018 End: 12-07-2018 Linaclotide (Linzess) 145 mcg capsule Discontinued 145 ug PO .q1w January 04, 2018 12:00am December 07, 2018 11:05am lisinopril 2.5 mg oral tablet (20 sources) Angiotensin Converting Enzyme Inhibitor Start: 06-27-2019 End: 02-26-2020 take 1 tablet by mouth once daily Lisinopril 2.5 mg tablet Discontinued 2.5 mg PO DAILY June 27, 2019 11:30am February 26, 2020 2:04pm On Hold: cough.low BP Start: 02-27-2019 End: 06-27-2019 take 1 tablet by mouth twice daily Lisinopril 2.5 mg tablet Discontinued 2.5 mg PO TWICE A DAY 60 June 02, 2019 3:28pm June 27, 2019 11:30am Magnesium (6 sources) Start: 01-04-2018 End: 02-27-2019 take 200 mg by mouth once daily Magnesium Discontinued 200 MG PO DAILY January 04, 2018 11:09am February 27, 2019 3:03pm Start: 01-04-2018 End: 02-27-2019 take 1 tablet by mouth once daily Magnesium 200 mg tablet Discontinued 200 mg PO DAILY January 04, 2018 12:00am February 27, 2019 3:03pm Start: 01-04-2018 End: 02-27-2019 take 200 mg by mouth once daily Magnesium Discontinued 200 MG PO DAILY January 04, 2018 12:00am February 27, 2019 3:03pm Start: 01-04-2018 End: 02-27-2019 take 200 mg by mouth once daily Magnesium Discontinued 200 MG PO DAILY January 03, 2018 11:00pm February 27, 2019 2:03pm meclizine hydrochloride 12.5 mg oral tablet (12 sources) Antiemetic Start: 01-04-2018 End: 12-07-2018 take 1 tablet by mouth once daily Meclizine 12.5 mg tablet Discontinued 12.5 mg PO daily November 22, 2018 9:54am December 07, 2018 11:05am megestrol acetate 40 mg oral tablet (12 sources) Progestin Start: 08-07-2019 End: 10-01-2019 take 1 tablet by mouth twice daily Megestrol 40 mg tablet Discontinued 40 mg PO TWICE A DAY 60 August 19, 2019 2:34pm October 01, 2019 12:31pm mirtazapine 15 mg oral tablet (18 sources) Start: 04-21-2021 End: 09-12-2021 take 1 tablet by mouth at bedtime Mirtazapine (Remeron) 15 mg tablet Discontinued 15 mg PO AT BEDTIME April 21, 2021 12:00am September 12, 2021 3:22pm Start: 01-04-2018 End: 12-07-2018 take 1 tablet by mouth at bedtime Mirtazapine 15 mg tablet Discontinued 15 mg PO AT BEDTIME October 25, 2018 3:19pm December 07, 2018 11:05am naloxegol 25 mg oral tablet (6 sources) Opioid Antagonist Start: 08-19-2019 End: 01-30-2020 take 1 tablet by mouth once daily in the morning Naloxegol (Movantik) 25 mg tablet Discontinued 25 mg PO EVERY MORNING August 19, 2019 1:00am January 30, 2020 1:06pm must be taken on empty stomach; no food 1 hr after or 2-3 hrs before dose [place]-3 Fatty Acids 1,000 mg capsule (1 source) Start: 10-25-2022 End: 09-11-2023 take 1 capsule by mouth once daily [place]-3 Fatty Acids 1,000 mg capsule Discontinued 1000 mg PO DAILY October 25, 2022 1:00am September 11, 2023 12:37pm [place]-3 Fatty Acids-Fish Oil (5 sources) Start: 02-24-2019 End: 02-27-2019 take 1000 mg by mouth once daily [place]-3 Fatty Acids-Fish Oil Discontinued 1000 MG PO DAILY February 24, 2019 3:21pm February 27, 2019 3:03pm Start: 02-24-2019 End: 02-27-2019 take 1000 mg by mouth once daily [place]-3 Fatty Acids-Fish Oil Discontinued 1000 MG PO DAILY February 24, 2019 12:00am February 27, 2019 3:03pm Start: 02-24-2019 End: 02-27-2019 take 1000 mg by mouth once daily [place]-3 Fatty Acids-Fish Oil Discontinued 1000 MG PO DAILY February 23, 2019 11:00pm February 27, 2019 2:03pm [place]-3 Fatty Acids-Fish Oil 1 EACH capsule (1 source) Start: 02-24-2019 End: 02-27-2019 take 1 capsule by mouth once daily [place]-3 Fatty Acids-Fish Oil 1 EACH capsule Discontinued 1000 mg PO DAILY February 24, 2019 12:00am February 27, 2019 3:03pm oxyCODONE hydrochloride 5 mg oral capsule (20 sources) Opioid Agonist Start: 10-01-2019 End: 01-30-2020 take 1 capsule by mouth every eight hours as needed Oxycodone 5 mg capsule Discontinued 5 mg PO Q8H as needed October 01, 2019 1:00am January 30, 2020 1:06pm Start: 08-07-2019 End: 08-26-2019 take 1 tablet by mouth every six hours as needed for pain Oxycodone 5 MG tablet Discontinued 5 mg PO EVERY 6 HOURS NEEDED as needed for Pain Score 6-10/10 28 August 07, 2019 August 13, 2019 1:00am August 19, 2019 2:36pm Start: 07-28-2019 End: 07-31-2019 take 1 tablet by mouth every four hours as needed for pain Oxycodone 5 MG tablet Discontinued 5 mg PO EVERY 4 HOURS NEEDED as needed for Pain Score 4-10/10 July 28, 2019 July 28, 2019 1:00am July 31, 2019 1:09am potassium chloride 10 meq extended release oral tablet (20 sources) Start: 02-27-2019 End: 01-30-2020 Potassium Chloride 10 mEq ta blet extended release Discontinued 0 .ROUTE .COMPLEX November 06, 2019 9:26am January 30, 2020 1:06pm TAKE 2 TABLETS EVERY DAY WITH SUPPER Start: 02-27-2019 End: 01-30-2020 Potassium Chloride Discontin ued 0 .ROUTE .COMPLEX November 06, 2019 9:26am January 30, 2020 1:06pm TAKE 2 TABLETS EVERY DAY WITH SUPPER prednisoLONE 10 mg disintegrating oral tablet (18 sources) Corticosteroid Start: 06-20-2018 End: 01-15-2019 take 0.5 tablet by mouth once daily Prednisolone Sodium Phosphate 10 mg tablet,disintegrating Discontinued 10 mg PO daily June 20, 2018 2:28pm January 15, 2019 11:37am takes half tablet daily Start: 01-04-2018 End: 06-20-2018 take 1 tablet by mouth once daily Prednisolone Sodium Phosphate 10 mg tablet,disintegrating Discontinued 10 mg PO daily March 21, 2018 4:47pm June 20, 2018 2:29pm predniSONE 10 mg oral tablet (12 sources) Start: 09-02-2020 End: 11-03-2020 Prednisone 10 mg tablet Discontinued 0 PO daily September 02, 2020 1:00am November 03, 2020 12:36pm 4 tabs for 3 days, then 3 tabs for 3 days, then 2 tabs for 3 days, then 1 tab for 3 days PO QDAY; administer with food or milk Start: 08-17-2020 End: 09-02-2020 take 1 tablet by mouth twice daily Prednisone 20 mg tablet Discontinued 20 mg PO TWICE A DAY August 17, 2020 1:00am September 02, 2020 2:25pm prochlorperazine 5 mg oral tablet (20 sources) Phenothiazine Start: 10-01-2019 End: 01-30-2020 take 1 tablet by mouth twice daily as needed Prochlorperazine Maleate (Compazine) 5 mg tablet Discontinued 5 mg PO TWICE A DAY as needed October 01, 2019 1:00am January 30, 2020 1:06pm Start: 02-24-2019 End: 07-25-2019 take 1 tablet by mouth three times daily as needed for nausea Prochlorperazine Maleate 5 mg tablet Discontinued 5 mg PO 3 TIMES DAILY NEEDED as needed for Nausea May 07, 2019 9:42am July 25, 2019 2:42pm Start: 07-12-2018 End: 01-24-2019 take 1 tablet by mouth once daily as needed for nausea and vomiting Prochlorperazine Maleate (Compazine) 5 mg tablet Discontinued 5 mg PO DAILY as needed for nausea and vomiting July 12, 2018 5:53pm January 24, 2019 4:23pm propafenone hydrochloride 150 mg oral tablet (12 sources) Antiarrhythmic Start: 06-20-2018 End: 01-15-2019 take 1 tablet by mouth every eight hours Propafenone 150 mg tablet Discontinued 150 mg PO Q8H October 09, 2018 11:38am January 15, 2019 11:01am rivaroxaban 20 mg oral tablet (6 sources) Factor Xa Inhibitor Start: 06-20-2018 End: 06-20-2018 take 1 tablet by mouth once daily Rivaroxaban (Xarelto) 20 mg tablet Discontinued 20 mg PO DAILY June 20, 2018 12:00am June 20, 2018 2:25pm sertraline 50 mg oral tablet (18 sources) Serotonin Reuptake Inhibitor Start: 05-19-2020 End: 11-03-2020 take 1 tablet by mouth once daily Sertraline 50 mg tablet Discontinued 50 mg PO DAILY May 19, 2020 12:00am November 03, 2020 12:35pm Start: 01-04-2018 End: 12-07-2018 take 1 tablet by mouth once daily Sertraline (Zoloft) 50 mg tablet Discontinued 50 mg PO daily April 19, 2018 8:24am December 07, 2018 11:04am sotalol hydrochloride 80 mg oral tablet (6 sources) Antiarrhythmic Start: 01-04-2018 End: 03-21-2018 take 1 tablet by mouth once daily Sotalol 80 mg tablet Discontinued 80 mg PO daily January 04, 2018 12:00am March 21, 2018 4:35pm thyroid ([facility]) 30 mg oral tablet (20 sources) Start: 12-26-2017 End: 08-06-2020 take 1 tablet by mouth once daily Thyroid (Pork) 30 mg tablet Discontinued 30 mg PO DAILY March 11, 2020 5:03pm August 06, 2020 12:17pm traMADol hydrochloride 50 mg oral tablet (12 sources) Opioid Agonist Start: 01-04-2018 End: 12-10-2018 Tramadol 50 mg tablet Discontinued 25 mg PO EVERY 6 HOURS as needed for pain March 21, 2018 4:48pm December 10, 2018 4:26pm Start: 01-04-2018 End: 12-10-2018 take 25 mg by mouth every six hours Tramadol Discontinued 25 MG PO EVERY 6 HOURS March 21, 2018 4:48pm December 10, 2018 4:26pm ubidecarenone 10 mg oral capsule (6 sources) Start: 01-04-2018 End: 02-27-2019 Coenzyme Q10 (Co Q-10) 10 mg capsule Discontinued 10 mg PO ONCE January 04, 2018 12:00am February 27, 2019 3:03pm vitamin e 90 mg oral capsule (6 sources) Start: 01-04-2018 End: 06-20-2018 take 1 capsule by mouth once daily Vitamin E 200 unit capsule Discontinued 200 U PO daily January 04, 2018 12:00am June 20, 2018 2:03pm walking boot (6 sources) Start: 02-26-2018 End: 06-20-2018 walking boot Discontinued 1 February 26, 2018 12:05pm June 20, 2018 2:07pm As directed Start: 02-26-2018 End: 06-20-2018 walking boot Discontinued February 26, 2018 12:00am June 20, 2018 2:07pm As directed Start: 02-26-2018 End: 06-20-2018 walking boot Discontinued February 25, 2018 11:00pm June 20, 2018 1:07pm As directed Zinc (5 sources) Start: 03-13-2022 End: 01-20-2025 take 1 tablet by mouth once daily Zinc 50 mg tablet Discontinued 50 mg PO DAILY March 13, 2022 12:00am January 20, 2025 1:00pm Start: 03-13-2022 take 50 mg by mouth once daily Zinc Active 50 MG PO DAILY March 13, 2022 12:00am Start: 03-13-2022 take 50 mg by mouth once daily Zinc Active 50 MG PO DAILY March 12, 2022 11:00pm Problems Active Problems Problem Classification Problem Date Documented Da te Episodic/Chronic Allergic reactions (8 sources) Chronic dermatitis; Translations: [Dermatitis, unspecified] 08-15-2022 Episodic Anxiety disorders (13 sources) Mixed anxiety and depressive disorder; Translations: [Anxiety disorder, unspecified] Chronic Cardiac dysrhythmias (20 sources) Atrial fibrillation; Translations: [Unspecified atrial fibrillation] Onset: 12-05-2024 12-05-2018 Chronic Congestive heart failure; nonhypertensive (14 sources) Chronic systolic heart failure; Translations: [Chronic systolic (congestive) heart failure] Onset: 07-09-2024 Chronic Comment on above: The estimated ejecti on fraction is 65 %. per ECHO 03/07/22 Fluid and electrolyte disorders (9 sources) Hyponatremia; Translations: [Hypo-osmolality and hyponatremia] Episodic Fracture of neck of femur (hip) (6 sources) Closed fracture of neck of femur; Translations: [Fracture of unspecified part of neck of left femur, initial encounter for closed fracture] 08-07-2019 Episodic Genitourinary symptoms and ill-defined conditions (1 source) Dysuria; Translations: [Dysuria] 09-11-2023 Episodic Heart valve disorders (20 sources) Mitral valve prolapse; Translations: [Nonrheumatic mitral (valve) prolapse] Onset: 01-22-2025 12-05-2018 Chronic Comment on above: Moderate to severe p er ECHO 03/07/22 Heart valve disorders (6 sources) Heart murmur; Translations: [Cardiac murmur, unspecified] 12-05-2018 Episodic Malaise and fatigue (7 sources) Asthenia; Translations: [Other malaise] 08-07-2019 Episodic Menopausal disorders (1 source) Atrophic vaginitis; Translations: [Postmenopausal atrophic vaginitis] 12-11-2023 Chronic Nutritional deficiencies (6 sources) Nutritional marasmus; Translations: [Unspecified severe protein-calorie malnutrition] 08-07-2019 Chronic Osteoarthritis (8 sources) Osteoarthritis of knee; Translations: [Unilateral primary osteoarthritis, unspecified knee] 08-07-2019 Chronic Osteoporosis (1 source) Age-related osteoporosis without current pathological fracture; Translations: [Age-related osteoporosis without current pathological fracture] Onset: 03-04-2024 Chronic Other and ill-defined heart disease (6 sources) Diastolic dysfunction; Translations: [Other ill-defined heart diseases] 07-28-2019 Chronic Other circulatory disease (6 sources) Low blood pressure; Translations: [Hypotension, unspecified] 03-19-2019 Episodic Other ear and sense organ disorders (4 sources) Impacted cerumen; Translations: [Impacted cerumen, unspecified ear] 12-05-2022 Episodic Other ear and sense organ disorders (2 sources) Impacted cerumen, unspecified ear; Translations: [Impacted cerumen] 12-05-2022 Episodic Other lower respiratory disease (1 source) Dyspnea; Translations: [Dyspnea, unspecified] 01-20-2025 Episodic Other lower respiratory disease (1 source) Shortness of breath; Translations: [Shortness of breath] Onset: 01-27-2025 Episodic Other nutritional; endocrine; and metabolic disorders (6 sources) Decrease in appetite; Translations: [Anorexia] 08-07-2019 Episodic Other skin disorders (6 sources) Seborrheic keratosis; Translations: [Other seborrheic keratosis] 10-25-2021 Episodic Other skin disorders (1 source) Other seborrheic keratosis; Translations: [Other seborrheic keratosis] Episodic Other skin disorders (7 sources) Localized swelling, mass and lump, trunk; Translations: [Mass of buttock] 08-15-2022 Episodic Pleurisy; pneumothorax; pulmonary collapse (6 sources) Pleural effusion; Translations: [Pleural effusion, not elsewhere classified] 07-28-2019 Episodic Comment on above: seen on an ECHO, not on CXR Pneumonia (except that caused by tuberculosis or sexually transmitted disease) (6 sources) Community acquired pneumonia; Translations: [Pneumonia, unspecified organism] 03-19-2019 Episodic Pulmonary heart disease (8 sources) Pulmonary hypertension; Translations: [Pulmonary hypertension, unspecified] 07-28-2019 Chronic Comment on above: ARCHIE systolic was rashawn mated at 42 in February 2019 on echocardiogram Septicemia (except in labor) (6 sources) Sepsis; Translations: [Sepsis, unspecified organism] 03-19-2019 Episodic Spondylosis; intervertebral disc disorders; other back problems (6 sources) Chronic back pain ; Translations: [Dorsalgia, unspecified] 04-21-2021 Episodic Thyroid disorders (12 sources) Hypothyroidism; Translations: [Hypothyroidism, unspecified] Chronic Urinary tract infections (8 sources) Urinary tract infectious disease; Translations: [Urinary tract infection, site not specified] 02-18-2021 Episodic Past or Other Problems Problem Classification Problem Date Documented Da te Episodic/Chronic Nutritional deficiencies (14 sources) Cobalamin deficiency; Translations: [Deficiency of other specified B group vitamins] Onset: 07-09-2024 01-23-2022 Episodic Other nutritional; endocrine; and metabolic disorders (4 sources) Anorexia; Translations: [Anorexia] Onset: 07-09-2024 Episodic Results Test Name Value Interpretation Reference Range Facility Cardiology Visit Reporton Cardiology Visit Report [facility] [address] [place] [address] OFFICE VISIT Date of Service: 01/22/25 MR#: [id number] Acct: [id number] Name: MARIBEL SIMPSON Rep #: [id number] : 1940 Provider: ARCHIE Shrestha Age/Sex: 84/F Location: [facility] Status: Signed HPI HPI History of Present Illness Details: Maribel Simpson is an 84 year-old female with a history of congestive heart failure, nonischemic cardiomyopathy, persistent atrial fibrillation and moderately severe mitral insufficiency Pt was in the Er on 01/20/25 for increase SOB.She does feel somewhat better. She is questioning if she has balance issues. She does not have any orthopnea. She is SOB when she first lays down. She does not have any chest pain/heaviness. She does not have any lower extremity edema. She does not have any symptoms of claudication. Intake Vital Signs 01/20/25 11:48 01/22/25 06:55 Height 5 ft 6.93 in 5 ft 6.93 in Weight: 109 lb BMI 17.1 BP 109/62 Blood Pressure Location Lt brachial Position Sitting Respiration 18 Pulse 85 Pulse Source Monitor Pulse Oximetry (%) 95 Intake Visit Reasons: [facility] ER 01/20 HTN/PALPS Ship Fastener Required: No Is patient in pain?: No Allergies milk Adverse Reaction (Mild, Verified 01/22/25 13:47) gas wheat Adverse Reaction (Mild, Verified 01/22/25 13:47) Abd cramps/diarrhea Medications ???Medication ???Instructions ???Recorded ???Confirmed ???Type multivitamin with minerals 1 tab PO DAILY supplement 02/24/19 01/22/25 History triamcinolone acetonide 0.1 % 1 applic topical DAILY #15 grams 0 10/25/21 01/22/25 Rx topical cream psyllium husk 0.4 gram capsule 0.4 g PO DAILY 01/17/22 01/22/25 H istory (Daily Fiber) cholecalciferol (vitamin D3) 25 25 mcg PO DAILY 03/13/22 01/22/25 History mcg (1,000 unit) tablet food supplemt, lactose-reduced 120 ml PO DAILY PRN supp 04/30/23 01/22/25 History 0.08 gram-1.5 kcal/mL oral liquid ascorbic acid (vitamin C) 500 mg 250 mg PO DAILY 10/29/23 01/22/25 History tablet mecobalamin (vitamin B12) 500 mcg 500 mcg PO DAILY 12/11/23 5 History chewable tablet metoprolol tartrate 25 mg tablet 25 mg PO DAILY bp #90 tabs 4 01/22/25 Rx hydrocodone-acetaminophen 5-325mg 1 tab PO QHS PRN pain 09/15/24 History 5mg-325mg ibuprofen 200 mg tablet 200 mg PO DAILY PRN fever or pain 10/08/24 01/22/25 History nystatin 100,000 unit/gram topical 1 applic topical DAILY PRN skin 10/08/24 01/22/25 History cream irritation quetiapine 100 mg tablet 50 mg (1/2 x 100 mg) PO QHS #60 01/22/25 Rx tabs fluoxetine 10 mg capsule 10 mg PO DAILY 01/20/25 01/22/25 H istory polyethylene glycol 3350 17 17 g PO DAILY PRN constipation 01/22/25 History gram/dose oral powder (ClearLax) zinc acetate 50 mg (zinc) capsule 50 mg PO DAILY 01/20/25 01/22/25 History fluoxetine 20 mg capsule (Prozac) 20 mg PO QDAY 01/22/25 01/22/25 H istory furosemide 20 mg tablet 20 mg PO DAILY 01/22/25 01/22/25 H istory omeprazole 20 mg capsule,delayed 20 mg PO DAILY PRN 01/22/25 History release Ejection fraction %: 60 Have you fallen in the past year?: No Nurse's Note: patient sates was in ER sunday. patient states she has a hernia [facility] Medical History (HFpEF) heart failure with preserved ejection fraction Vitamin B12 deficiency Chronic back pain Hip fracture Persistent atrial fibrillation Nonrheumatic mitral (valve) insufficiency Chronic systolic (congestive) heart failure Pleural effusion CAP (community acquired pneumonia) Sepsis Hypotension Nonrheumatic mitral (valve) prolapse Hypothyroidism History of basal cell carcinoma Anxiety and depression A-fib History of cataract Heart murmur GERD (gastroesophageal reflux disease) IBS (irritable bowel syndrome) History of hepatitis Hormone replacement therapy Surgical History History of cholecystectomy History of hysterectomy Family History Grandmother Colon cancer Grandfather Myocardial infarction Mother Heart disease Myocardial infarction Parkinsons Social History Smoking Status: Never smoker alcohol intake: never substance use type: other details: marijuana tea caffeine: Yes Type: tea what type of physical activity do you participate in: none ROS Const Const: Negative for fatigue, weakness, headache(s) or frequent falls Eyes Eyes: Negative for blurry vision ENT ENT: Positive for dizziness; Negative for headache(s) o (more content not included)... Normal [facility] 12 Lead EKGon 01-20-2025 12 Lead EKG [facility] Cardiovascular Services [address] [place] [address] 12 Lead EKG 01/20/25 1241 MR#: [id number] Acct: [id number] Name: MARIBEL SIMPSON Rep #: [id number] : 1940 84 From: Jasper Julian MD Attending Dr: Status: DEP ER Ordering Dr: Laverne Elena DO Date: 01/20/25 Location: ED Sex: F C Admitted: Test Reason : Blood Pressure : */* mmHG Vent. Rate : 93 BPM Atrial Rate : * BPM P-R Int : * ms QRS Dur : 86 ms QT Int : 376 ms P-R-T Axes : * 88 75 degrees QTcB Int : 467 ms Atrial fibrillation Abnormal ECG Confirmed by SALVATORE LUTHER, JASPER ([id number]), video effects editor ASTRID MERINO ([id number]) on 01/21/2025 10:34:40 AM Referred By: Confirmed By: JASPER JULIAN MD 01/21/25 1034 Date Jasper Julian MD CC: Dr. Laverne Elena DO; Dr. Ronni Sen DO Signed Normal [facility] Absolute lymphocyte countOrd ered By: Laverne Elena on 01-20-2025 Lymphocytes Auto (Unsp spec) [#/Vol] 1.50 10*3/uL 0.83-4.51 [facility] Absolute neutrophil countOrd ered By: Laverne Elena on 01-20-2025 Neutrophils (Bld) [#/Vol] 5.1 10*3/uL 2.0-7.7 [facility] Anion gap in Serum or Plasma Ordered By: Laverne Elena on 01-20-2025 Anion gap [Moles/Vol] 12 mmol/L 01-15 [facility] Automated lymphocyte count a s percentage of total leukocytesOrdered By: Laverne Elena on 01-20-2025 Lymphocytes/100 WBC Auto (Unsp spec) 20.3 % [facility] BUN/creatinine ratioOrdered By: Laverne Elena on 01-20-2025 Urea nitrogen/Creatinine [Mass ratio] 26.3 mg/mg High 06-22 [facility] Basophil percentageOrdered B y: Laverne Elena on 01-20-2025 Basophils/100 WBC (Bld) 0.9 % 0- [facility] Bilirubin, totalOrdered By: Laverne Elena on 01-20-2025 Bilirubin [Mass/Vol] 0.78 mg/dL 0.00-1.30 [facility] CBC W/Diff, Automatedon 01-02 Absolute Lymph 1.50 X10 3/uL Normal 0.83-4.51 [facility] Comment on above: Performed By: #### L 501.2450, L100.0100, L503.7505, L501.9520, L500.4050, L300.8000, L501.4021 #### [facility] [address] [place], [address] Absolute Neut 5.1 X10 3/uL Normal 2.0-7.7 [facility] Comment on above: Performed By: #### L 501.2450, L100.0100, L503.7505, L501.9520, L500.4050, L300.8000, L501.4021 #### [facility] [address] [place], [address] Basophils/100 WBC (Bld) 0.9 % Normal 0-1 [facility] Comment on above: Performed By: #### L 501.2450, L100.0100, L503.7505, L501.9520, L500.4050, L300.8000, L501.4021 #### [facility] [address] [place], [address] Eosinophils/100 WBC (Bld) 1.4 % Normal 0-5 [facility] Comment on above: Performed By: #### L 501.2450, L100.0100, L503.7505, L501.9520, L500.4050, L300.8000, L501.4021 #### [facility] [address] [place], [address] Erythrocyte distribution width (RBC) [Ratio] 13.4 % Normal 11.6-14.6 [facility] Comment on above: Performed By: #### L 501.2450, L100.0100, L503.7505, L501.9520, L500.4050, L300.8000, L501.4021 #### [facility] [address] [place], [address] Hematocrit (Bld) [Volume fraction] 40.6 % Normal 37-47 [facility] Comment on above: Performed By: #### L 501.2450, L100.0100, L503.7505, L501.9520, L500.4050, L300.8000, L501.4021 #### [facility] [address] [place], [address] Hemoglobin (Bld) [Mass/Vol] 13.5 g/dL Normal 12.0-15.0 [facility] Comment on above: Performed By: #### L 501.2450, L100.0100, L503.7505, L501.9520, L500.4050, L300.8000, L501.4021 #### [facility] [address] [place], [address] IG% 0.400 Normal 0.0-0.9 [facility] Comment on above: Result Comment: IG% - Immature Granulocytes (promyelocytes, myelocytes and metamyelocytes) > 1% indicates that a LEFT SHIFT is Present. Performed By: #### L 501.2450, L100.0100, L503.7505, L501.9520, L500.4050, L300.8000, L501.4021 #### [facility] [address] [place], [address] Lymphocytes/100 WBC (Bld) 20.3 % Normal 19-41 [facility] Comment on above: Performed By: #### L 501.2450, L100.0100, L503.7505, L501.9520, L500.4050, L300.8000, L501.4021 #### [facility] [address] [place], [address] MCH (RBC) [Entitic mass] 31.5 pg Normal 27.0-32.0 [facility] Comment on above: Performed By: #### L 501.2450, L100.0100, L503.7505, L501.9520, L500.4050, L300.8000, L501.4021 #### [facility] [address] [place], [address] MCHC (RBC) [Mass/Vol] 33.3 g/dL Normal 32-36 [facility] Comment on above: Performed By: #### L 501.2450, L100.0100, L503.7505, L501.9520, L500.4050, L300.8000, L501.4021 #### [facility] [address] [place], [address] MCV (RBC) [Entitic vol] 94.6 fL Normal 81-99 [facility] Comment on above: Performed By: #### L 501.2450, L100.0100, L503.7505, L501.9520, L500.4050, L300.8000, L501.4021 #### [facility] [address] [place], [address] Monocytes/100 WBC (Bld) 8.5 % Normal 0-10 [facility] Comment on above: Performed By: #### L 501.2450, L100.0100, L503.7505, L501.9520, L500.4050, L300.8000, L501.4021 #### [facility] [address] [place], [address] Neutrophils/100 WBC (Bld) 68.5 % Normal 47-70 [facility] Comment on above: Performed By: #### L 501.2450, L100.0100, L503.7505, L501.9520, L500.4050, L300.8000, L501.4021 #### [facility] [address] [place], [address] Nucleated RBC (Bld) [#/Vol] 0 10*3/uL Normal 0-5 [facility] Comment on above: Performed By: #### L 501.2450, L100.0100, L503.7505, L501.9520, L500.4050, L300.8000, L501.4021 #### [facility] [address] [place], [address] Platelet mean volume (Bld) [Entitic vol] 10.2 fL Normal 6.2-12.0 [facility] Comment on above: Performed By: #### L 501.2450, L100.0100, L503.7505, L501.9520, L500.4050, L300.8000, L501.4021 #### [facility] [address] [place], [address] Platelets (Bld) [#/Vol] 213 10*3/uL Normal 150-450 [facility] Comment on above: Performed By: #### L 501.2450, L100.0100, L503.7505, L501.9520, L500.4050, L300.8000, L501.4021 #### [facility] [address] [place], [address] RBC (Bld) [#/Vol] 4.29 10*6/uL Normal 4.2-5.4 [facility] Comment on above: Performed By: #### L 501.2450, L100.0100, L503.7505, L501.9520, L500.4050, L300.8000, L501.4021 #### [facility] [address] [place], [address] RDW SD 46.8 fl High 35.1-43.9 [facility] Comment on above: Performed By: #### L 501.2450, L100.0100, L503.7505, L501.9520, L500.4050, L300.8000, L501.4021 #### [facility] [address] [place], [address] WBC (Bld) [#/Vol] 7.4 10*3/uL Normal 4.4-11.0 [facility] Comment on above: Performed By: #### L 501.2450, L100.0100, L503.7505, L501.9520, L500.4050, L300.8000, L501.4021 #### [facility] [address] [place], [address] Carbon dioxide, total [Moles /volume] in Central venous bloodOrdered By: Laverne Elena on 01-20-2025 CO2 [Moles/Vol] 24.3 mmol/L 21.0-32.0 [facility] Chest PA and Lateralon 01-20 Chest PA and Lateral [facility] [address] [place] [address] Chest PA and Lateral MR#: [id number] Acct: [id number] Name: MARIBEL SIMPSON Rep #: [id number] : 1940 F 84 From: Josiah tripp MD PCP: Dr. Ronni Sen DO Status: REG ER Study: Chest PA and Lateral Date of Exam: 01/20/25 Exam# [id number] Ordering Dr: Laverne Elena DO PROCEDURE: CHEST PA AND LATERAL 01/20/2025 REASON FOR EXAM: SOB TECHNIQUE: Frontal and lateral views of the chest. COMPARISON: None FINDINGS: Hardware: EKG electrodes are seen. Heart: Heart size upper limits of normal. Mediastinum: Unremarkable Lungs: Small bilateral pleural effusions right greater than left with bibasilar atelectasis and/or infiltration worse on the right side. Vascular congestion. Bones: Degenerative changes are identified within the thoracic spine. RAD/Chest PA and Lateral IMPRESSION: Vascular congestion. Small bilateral pleural effusions with bibasilar infiltration and/or atelectasis worse on the right side. Reading Location: [place] [address] CC: Dr. Laverne Elena DO; Dr. Ronni Sen DO Inside Sales Account Executive: Signed Normal [facility] Chloride assayOrdered By: Kings Elena on 01-20-2025 Chloride [Moles/Vol] 98 mmol/L 98-108 [facility] Comprehensive Metabolic Prof ilon 01-20-2025 Albumin [Mass/Vol] 4.2 g/dL Normal 3.4-4.8 [facility] Comment on above: Performed By: #### L 501.2450, L100.0100, L503.7505, L501.9520, L500.4050, L300.8000, L501.4021 #### [facility] [address] [place], [address] Albumin/Globulin [Mass ratio] 1.4 {ratio} Normal 0.9-2.4 [facility] Comment on above: Performed By: #### L 501.2450, L100.0100, L503.7505, L501.9520, L500.4050, L300.8000, L501.4021 #### [facility] [address] [place], [address] ALK PHOS 73 U/L Normal 35-104 [facility] Comment on above: Performed By: #### L 501.2450, L100.0100, L503.7505, L501.9520, L500.4050, L300.8000, L501.4021 #### [facility] [address] [place], [address] ALT [Catalytic activity/Vol] 31 U/L Normal <=34 [facility] Comment on above: Performed By: #### L 501.2450, L100.0100, L503.7505, L501.9520, L500.4050, L300.8000, L501.4021 #### [facility] [address] [place], [address] AST [Catalytic activity/Vol] 57 U/L High <=31 [facility] Comment on above: Performed By: #### L 501.2450, L100.0100, L503.7505, L501.9520, L500.4050, L300.8000, L501.4021 #### [facility] [address] [place], [address] Bilirubin [Mass/Vol] 0.78 mg/dL Normal 0.00-1.30 [facility] Comment on above: Performed By: #### L 501.2450, L100.0100, L503.7505, L501.9520, L500.4050, L300.8000, L501.4021 #### [facility] [address] [place], [address] BUN/CRE 26.3 RATIO High 10-20 [facility] Comment on above: Performed By: #### L 501.2450, L100.0100, L503.7505, L501.9520, L500.4050, L300.8000, L501.4021 #### [facility] [address] [place], [address] Calcium [Mass/Vol] 9.5 mg/dL Normal 7.6-11.0 [place] Comment on above: Performed By: #### L 501.2450, L100.0100, L503.7505, L501.9520, L500.4050, L300.8000, L501.4021 #### [facility] [address] [place], [address] Chloride [Moles/Vol] 98 mmol/L Normal 98-108 [facility] Comment on above: Performed By: #### L 501.2450, L100.0100, L503.7505, L501.9520, L500.4050, L300.8000, L501.4021 #### [facility] [address] [place], [address] CO2 [Moles/Vol] 24.3 mmol/L Normal 21.0-32.0 [facility] Comment on above: Performed By: #### L 501.2450, L100.0100, L503.7505, L501.9520, L500.4050, L300.8000, L501.4021 #### [facility] [address] [place], [address] Creatinine [Mass/Vol] 0.76 mg/dL Normal 0.70-1.20 [facility] Comment on above: Performed By: #### L 501.2450, L100.0100, L503.7505, L501.9520, L500.4050, L300.8000, L501.4021 #### [facility] [address] [place], [address] ECRCL 43.40 ml/min Low 50-250 [facility] Comment on above: Performed By: #### L 501.2450, L100.0100, L503.7505, L501.9520, L500.4050, L300.8000, L501.4021 #### [facility] [address] [place], [address] GAP 12 Normal 5-15 [facility] Comment on above: Performed By: #### L 501.2450, L100.0100, L503.7505, L501.9520, L500.4050, L300.8000, L501.4021 #### [facility] [address] [place], [address] GFR/1.73 sq M.predicted among non-blacks MDRD (S/P/Bld) [Vol rate/Area] 78 mL/min/{1.73_m2} Normal >60 [facility] Comment on above: Result Comment: mL/m in/1.73m2 CKD-EPI Creatinine Equation (2020) Performed By: #### L 501.2450, L100.0100, L503.7505, L501.9520, L500.4050, L300.8000, L501.4021 #### [facility] [address] [place], [address] Globulin (S) [Mass/Vol] 3.0 g/dL Normal 2.2-4.2 [facility] Comment on above: Performed By: #### L 501.2450, L100.0100, L503.7505, L501.9520, L500.4050, L300.8000, L501.4021 #### [facility] [address] [place], [address] Glucose [Mass/Vol] 96 mg/dL Normal 70-99 [place] Comment on above: Performed By: #### L 501.2450, L100.0100, L503.7505, L501.9520, L500.4050, L300.8000, L501.4021 #### [facility] [address] [place], [address] Potassium [Moles/Vol] 4.5 mmol/L Normal 3.3-5.1 [facility] Comment on above: Performed By: #### L 501.2450, L100.0100, L503.7505, L501.9520, L500.4050, L300.8000, L501.4021 #### [facility] [address] [place], [address] Sodium [Moles/Vol] 135 mmol/L Normal 133-145 [place] Comment on above: Performed By: #### L 501.2450, L100.0100, L503.7505, L501.9520, L500.4050, L300.8000, L501.4021 #### [facility] [address] [place], [address] T PROT 7.2 g/dL Normal 5.9-8.4 [facility] Comment on above: Performed By: #### L 501.2450, L100.0100, L503.7505, L501.9520, L500.4050, L300.8000, L501.4021 #### [facility] [address] [place], [address] Urea nitrogen [Mass/Vol] 20 mg/dL High 4-19 [facility] Comment on above: Performed By: #### L 501.2450, L100.0100, L503.7505, L501.9520, L500.4050, L300.8000, L501.4021 #### [facility] [address] [place], [address] D-Dimer Quantitative (DVT/PE )on 01-20-2025 D-DIMER QUANT 0.63 FEU/ug/m Invalid Interpretation Code 0.27-0.49 [facility] Comment on above: Result Comment: D-Di lore ELEVATED (>0.49): Additional studies and clinical assessments are indicated to conclude diagnosis of: Deep Vein Thrombosis (DVT) or Pulmonary Embolism (PE) CRITICAL VALUE CALLED TO Cornelius VIRGEN 01/20/25 1318 Gayatri Rogers. RESULTS READ BACK BY SAME. Performed By: #### L 501.2450, L100.0100, L503.7505, L501.9520, L500.4050, L300.8000, L501.4021 #### [facility] [address] [place], [address] Emergency Department Summary on 01-20-[address] [facility] Medical Records Department [address] [place] [address] Emergency Department Summary 01/20/25 MR#: [id number] Acct: [id number] Name: MARIBEL SIMPSON Rep #: [id number] : 1940 84 From: Laverne Elena DO PCP: Dr. Ronni Sen DO Status:REG ER Location: ED HPI History of Present Illness Chief Complaint: Shortness of Breath Informant: patient and family Narrative Narrative: Patient is an 84-year-old female with history of persistent atrial fibrillation (not on any anticoagulation), heart failure with preserved ejection fraction, mitral valve insufficiency, malnutrition, pulmonary hypertension and hypothyroidism presenting with shortness of breath and right sided chest discomfort. She denies any falls or injuries. She states she has been more short of breath has progressed over the past 1 to 2 weeks. Denies any leg swelling. Notes that she does intermittently have some left-sided chest pain when she bends down for the past 5 days. She she has had a mild cough that is only slightly productive. Denies any fever. Had the flu around [facility] but that was a month ago. Did recently go up on her Prozac from 10 mg to 20 mg on Sunday (4 days ago) is not sure if that is related. Has 52 been on Eliquis and digoxin for A-fib but is no longer on any anticoagulation due to easy bleeding. Denies any history of DVT or PE. No other complaints or concerns reported at this time. Notes that she had a bad night last night and had a hard time breathing. Did receive Tylenol this morning which did help her right sided chest discomfort. [facility] Medical History (HFpEF) heart failure with preserved ejection fraction Vitamin B12 deficiency Chronic back pain Hip fracture Persistent atrial fibrillation Nonrheumatic mitral (valve) insufficiency Chronic systolic (congestive) heart failure Pleural effusion CAP (community acquired pneumonia) Sepsis Hypotension Nonrheumatic mitral (valve) prolapse Hypothyroidism History of basal cell carcinoma Anxiety and depression A-fib History of cataract Heart murmur GERD (gastroesophageal reflux disease) IBS (irritable bowel syndrome) History of hepatitis Hormone replacement therapy Home Medications ???Medication ???Instructions ???Recorded ???Last Taken ???Type multivitamin with minerals 1 tab PO DAILY supplement 02/24/19 07/24/19 History triamcinolone acetonide 0.1 % 1 applic topical DAILY #15 grams 0 10/25/21 Unknown Rx topical cream psyllium husk 0.4 gram capsule 0.4 g PO DAILY 01/17/22 Unknown Hi story (Daily Fiber) cholecalciferol (vitamin D3) 25 25 mcg PO DAILY 03/13/22 Unknown H istory mcg (1,000 unit) tablet food supplemt, lactose-reduced 120 ml PO DAILY PRN supp 04/30/23 Unknown History 0.08 gram-1.5 kcal/mL oral liquid ascorbic acid (vitamin C) 500 mg 250 mg PO DAILY 10/29/23 Unknown H istory tablet mecobalamin (vitamin B12) 500 mcg 500 mcg PO DAILY 12/11/23 Unknown History chewable tablet metoprolol tartrate 25 mg tablet 25 mg PO DAILY bp #90 tabs 4 Unknown Rx hydrocodone-acetaminophen 5-325mg 1 tab PO QHS PRN pain 09/15/24 Un known History 5mg-325mg furosemide 20 mg tablet 20 mg PO DAILY #90 tabs 10/08/24 U nknown Rx ibuprofen 200 mg tablet 200 mg PO DAILY PRN fever or pain 10/08/24 Unknown History nystatin 100,000 unit/gram topical 1 applic topical DAILY PRN skin 10/08/24 Unknown History cream irritation quetiapine 100 mg tablet 50 mg (1/2 x 100 mg) PO QHS #60 Unknown Rx tabs fluoxetine 10 mg capsule 10 mg PO DAILY 01/20/25 Unknown Hi story furosemide 20 mg tablet (Lasix) 40 mg (2 x 20 mg) PO DAILY 5 days 01/20/25 Unknown Rx #10 tabs omeprazole 20 mg capsule,delayed 20 mg PO DAILY 01/20/25 Unknown Hi story release polyethylene glycol 3350 17 17 g PO DAILY PRN constipation Unknown History gram/dose oral powder (ClearLax) zinc acetate 50 mg (zinc) capsule 50 mg PO DAILY 01/20/25 Unknown H istory Allergy/AdvReac Type Severity Reaction Status Date / Time milk AdvReac Mild gas Verified 10/08/24 11:07 wheat AdvReac Mild Abd Verified 10/08/24 11:07 cramps/diarrhea Family History Grandmother Colon cancer Grandfather Myocardial infarction Mother Heart disease Myocardial infarction Parkinsons Surgical History History of cholecystectomy History of hysterectomy Social History Smoking Status: Never smoker alcohol intake: never substance use type: other details: marijuana tea caffeine: Yes Type: tea what type of physical activity do you participate in: none (more content not included)... Normal [facility] Eosinophil percentageOrdered By: Laverne Elena on 01-20-2025 Eosinophils/100 WBC (Bld) 1.4 % 0-5 [facility] Erythrocyte distribution wid th ratioOrdered By: Laverne Elena on 01-20-2025 Erythrocyte distribution width (RBC) [Ratio] 13.4 % 11.6-14.6 [facility] Erythrocyte distribution wid th standard deviationOrdered By: Laverne Elena on 01-20-2025 Erythrocyte distribution width (RBC) [Ratio] 46.8 fl High 35.1-43.9 [facility] Glomerular filtration rate ( GFR) estimation/1.73 sq m using serum, plasma, or whole bOrdered By: Laverne Elena on 01-20-2025 GFR/1.73 sq M.predicted among non-blacks MDRD (S/P/Bld) [Vol rate/Area] 78 mL/min/{1.73_m2} >60 [facility] Comment on above: mL/min/1.73m2 CKD-EP I Creatinine Equation (2020) Hematocrit Auto (Bld) [Volum e fraction]Ordered By: Laverne Elena on 01-20-2025 Hematocrit (Bld) [Volume fraction] 40.6 % 37-47 [facility] Hemoglobin measurementOrdere d By: Laverne Kassy on 01-20-2025 Hemoglobin (Bld) [Mass/Vol] 13.5 g/dL 12.0-15.0 [facility] Immature granulocytes/100 WB C Auto (Bld)Ordered By: Laverne Elena on 01-20-2025 Immature granulocytes/100 WBC (Bld) 0.400 % 0.0-0.9 [facility] Comment on above: IG% - Immature Granu locytes (promyelocytes, myelocytes and metamyelocytes) > 1% indicates that a LEFT SHIFT is Present. L499.0042on 01-20-2025 Trop T High Sen 10 ng/L Normal <=14 [facility] Comment on above: Performed By: #### L 499.0042 #### [facility] [address] [place], [address] L499.0043on 01-20-2025 Trop T High Sen Normal <=14 [facility] Comment on above: Result Comment: Canc elled via OM: Order cancelled - Patient discharged Performed By: #### L 506.1000, L503.0105 #### [facility] [address] [place], [address] L501.4021on 01-20-2025 Trop T High Sen 12 ng/L Normal <=14 [facility] Comment on above: Performed By: #### L 501.2450, L100.0100, L503.7505, L501.9520, L500.4050, L300.8000, L501.4021 #### [facility] [address] [place], [address] L503.7505on 01-20-2025 Natriuretic peptide B (Bld) [Mass/Vol] 3460 pg/mL High <=1800 [facility] Comment on above: Result Comment: Hear t Failure Unlikely: < 300 pg/mL Heart Failure Likely < 50 Years: > 450 pg/mL 50-75 Years: > 900 pg/mL >75 Years: > 1800 pg/mL Performed By: #### L 501.2450, L100.0100, L503.7505, L501.9520, L500.4050, L300.8000, L501.4021 #### [facility] [address] [place], [place], [address] Laboratory - Chemistry and C hemistry - challengeOrdered By: Laverne Elena on 01-20-2025 AST [Catalytic activity/Vol] 57 U/L High <32 [facility] Lipaseon 01-20-2025 Lipase [Catalytic activity/Vol] 12 U/L Low 13-75 [facility] Comment on above: Result Comment: Antonietta pollock note: LIPASE revised reference range effective 22. New Lipase methodology. Expected to produce lower values than the previous assay method. NEW Reference Range: 13 - 75 U/L Performed By: #### L 501.2450, L100.0100, L503.7505, L501.9520, L500.4050, L300.8000, L501.4021 #### [facility] [address] [place], [place], [address] Lipase measurementOrdered By : Laverne Elena on 01-20-2025 Lipase [Catalytic activity/Vol] 12 U/L Low 13-75 [facility] Comment on above: Please note:LIPASE r evised reference range effective 22. New Lipase methodology. Expected to produce lower values than the previous assay method. NEW Reference Range: 13 - 75 U/L MCV (mean corpuscular volume ) determinationOrdered By: Laverne Elena on 01-20-2025 MCV (RBC) [Entitic vol] 94.6 fL 81-99 [facility] Mean corpuscular hemoglobin (MCH) determinationOrdered By: Laverne Elena on 01-20-2025 MCH (RBC) [Entitic mass] 31.5 pg 27.0-32.0 [facility] Mean corpuscular hemoglobin concentration (MCHC) determinationOrdered By: Laverne Elena on 01-20-2025 MCHC (RBC) [Mass/Vol] 33.3 g/dL 32-36 [facility] Mean platelet volume determi nationOrdered By: Laverne Elena on 01-20-2025 Platelet mean volume (Bld) [Entitic vol] 10.2 fL 6.2-12.0 [facility] Monocyte percentageOrdered B y: Laverne Elena on 01-20-2025 Monocytes/100 WBC (Bld) 8.5 % 0-10 [facility] Natriuretic peptide.B prohor keith N-Terminal [Mass/volume] in Serum or PlasmaOrdered By: Laverne Elena on 01-20-2025 Natriuretic peptide.B prohormone N-Terminal [Mass/Vol] 3460 pg/mL High <1800 [facility] Comment on above: Heart Failure Unlike ly: < 300 pg/mLHeart Failure Likely< 50 Years: > 450 pg/mL50-75 Years: > 900 pg/mL>75 Years: > 1800 pg/mL Neutrophil percentageOrdered By: Laverne Elena on 01-20-2025 Neutrophils/100 WBC (Bld) 68.5 % 47-70 [facility] Nucleated red blood cell per centageOrdered By: Laverne Elena on 01-20-2025 Nucleated RBC/100 WBC (Bld) [Ratio] 0 % 0-5 [facility] Platelet countOrdered By: Kings Elena on 01-20-2025 Platelets (Bld) [#/Vol] 213 10*3/uL 150-450 [facility] Potassium measurement (mass/ volume)Ordered By: Laverne Elena on 01-20-2025 Potassium (Unsp spec) [Mass/Vol] 4.5 mmol/L 3.3-5.1 [facility] RBC Auto (Bld) [#/Vol]Ordere d By: Laverne Elena on 01-20-2025 RBC (Bld) [#/Vol] 4.29 10*6/uL 4.2-5.4 [facility] Serum creatinine measurement (mass/volume)Ordered By: Laverne Elena on 01-20-2025 Creatinine [Mass/Vol] 0.76 mg/dL 0.70-1.20 [facility] Serum globulin measurementOr dered By: Laverne Elena on 01-20-2025 Globulin (S) [Mass/Vol] 3.0 g/dL 2.2-4.2 [facility] Serum glucose measurement (m ass/volume)Ordered By: Laverne Elena on 01-20-2025 Glucose [Mass/Vol] 96 mg/dL 70-99 [place] Serum or plasma alanine grissom otransferase (ALT) measurementOrdered By: Laverne Elena on 01-20-2025 ALT [Catalytic activity/Vol] 31 U/L <35 [facility] Serum or plasma albumin paul urement (mass/volume)Ordered By: Laverne Elena on 01-20-2025 Albumin [Mass/Vol] 4.2 g/dL 3.4-4.8 [place] Serum or plasma albumin/glob ulin mass ratioOrdered By: Laverne Elena on 01-20-2025 Albumin/Globulin [Mass ratio] 1.4 {ratio} 0.9-2.4 [facility] Serum or plasma alkaline augusta sphatase measurementOrdered By: Laverne Elena on 01-20-2025 ALP [Catalytic activity/Vol] 73 U/L 35-104 [facility] Serum or plasma calcium paul urement (mass/volume)Ordered By: Laverne Elena on 01-20-2025 Calcium [Mass/Vol] 9.5 mg/dL 7.6-11.0 [place] Serum or plasma urea nitroge n measurement (mass/volume)Ordered By: Laverne Elena on 01-20-2025 Urea nitrogen [Mass/Vol] 20 mg/dL High 4-19 [facility] Sodium levelOrdered By: Leana Elena on 01-20-2025 Sodium [Moles/Vol] 135 mmol/L 133-145 [place] TSH DL <= 0.005 mIU/L QnOrde red By: Laverne Elena on 01-20-2025 TSH Qn 8.900 uIU/mL High 0.300-4.20 0 [facility] Thyroid Stim Hormone (TSH)on 01-20-2025 TSH 8.900 uIU/mL High 0.300-4.20 0 [facility] Comment on above: Performed By: #### L 501.2450, L100.0100, L503.7505, L501.9520, L500.4050, L300.8000, L501.4021 #### [facility] [address] [place], [address] Total proteinOrdered By: Jada Elena on 01-20-2025 Protein [Mass/Vol] 7.2 g/dL 5.9-8.4 [facility] Troponin T.cardiac [Mass/vol ume] in Serum or Plasma by High sensitivity methodOrdered By: Laverne Elena on 01-20-2025 Troponin T.cardiac High sensitivity method [Mass/Vol] 12 ng/L <14 [facility] White blood cell (WBC) count Ordered By: Laverne Elena on 01-20-2025 WBC (Bld) [#/Vol] 7.4 10*3/uL 4.4-11.0 [place] 12 Lead [place] [facility] [place]-05-2024 12 Lead EKG performed by [facility] [address] [place] [address] 12 Lead EKG [place] [facility] 12/05/24 1130 MR#: [id number] Acct: [id number] Name: MARIBEL SIMPSON Rep #: [id number] : 1940 84 From: Goyo Díaz MD Attending Dr: Dr. Goyo Díaz MD Status: DE P RIC Ordering Dr: Goyo Díaz MD Date: 12/05/24 Location: [facility] [place] Sex: F C Admitted: BMS/12 Lead EKG performed [place] [facility] ECG Report Interpretation Atrial flutter-fibrillation ABNORMAL RHYTHMElectronically signed on 12/05/2024 at 15:07 by Jasper [employer] Version [id number] 12/05/24 6058 Date Goyo Díaz MD CC: Dr. Ronni Sen, Date Dictated: 12/05/241129 Date Transcribed: 12/05/241129 Inside Sales Account Executive: Signed Normal [facility] Office Visit Reporton 2024 Office Visit Report [facility] [address] [place] [address] OFFICE VISIT Date of Service: 12/05/24 MR#: [id number] Acct: [id number] Patient: MARIBEL SIMPSON Rep #: [id number] : 1940 Provider: Dr. Goyo robert MD Age/Sex: 84/F Location: [facility] [place] Status: Signed Intake Vital Signs 10/08/24 11:18 12/05/24 11:42 Height 5 ft 7 in Weight: 108 lb BMI 16.9 BP 108/54 L 118/76 Blood Pressure Location Rt brachial Rt brachial Position Sitting Sitting Respiration 16 16 Pulse 75 77 Pulse Source Monitor Monitor Temp 98.5 F Temp Source Temporal Pulse Oximetry (%) 97 96 Oxygen Delivery Method room air room air Intake Visit Reasons: 15 BP Check Chief Complaint: PHYSICAL FOR ASSISTED LIVING Allergies milk Adverse Reaction (Mild, Verified 10/08/24 11:07) gas wheat Adverse Reaction (Mild, Verified 10/08/24 11:07) Abd cramps/diarrhea Have you fallen in the past year?: Yes Nursing Note Patient in office for follow-up BP check and EKG. Saw Dr. Díaz on 09/15/24 and had digoxin 125mcg discontinued due to bradycardia and dizziness. Patient reports that she is feeling better since stopping digoxin; is no longer experiencing dizzy spells, but states she is able to feel her afib more. States she feels a fluttering feeling accompanied by shortness of breath. BP 118/76, pulse 77. EKG done. Patient and daughter Keyla aware that office will call once Dr. Díaz has reviewed note and EKG. Patient would like daughter Keyla called with advice [phone]. Assessment and Plan Assessment and Plan (1) Persistent atrial fibrillation: Status: Chronic Plan: BP and HR are much better off the Lanoxin and continuing the metoprolol. I recommend she continue current meds and follow with me or JOSIE in 3 months. She has persistent long standing A. fib and is at fall risk so no OAC. See my lst OV note for family discussion. Orders: Orders 12 Lead E[place] performed by [facility] [place] I48.1 - Persistent atrial fibrillation Clinical Quality Measures Falls Risk Screening/Assistive Devices Have you fallen in the past year?: Yes 12/05/24 1438 Date Goyo Islasignkam Signature: Date (if applicable) CC: [facility] Internal Medicine Office Vis zelda 10-08-2024 Internal Medicine Office Visit [facility] [address] [place] [address] [place] [address] OFFICE VISIT Date of Service: 10/08/24 MR#: [id number] Acct: [id number] Name: MARIBEL SIMPSON Rep #: [id number] : 1940 Provider: Dr. Ronni ca, DO Age/Sex: 84/F [place] [facility] Status: Signed Intake Vital Signs 07/09/24 11:20 09/15/24 13:44 10/08/24 11:18 Height 5 ft 7 in 5 ft 7 in 5 ft 7 in Weight: 105 lb 108 lb BMI 16.4 16.9 BP 112/70 108/54 L Blood Pressure Location Lt brachial Rt brachial Position Sitting Sitting Respiration 12 16 Pulse 62 75 Pulse Source Monitor Monitor Temp 97.7 F L 98.5 F Temp Source Temporal Temporal Pulse Oximetry (%) 98 97 Oxygen Delivery Method room air room air Intake Visit Reasons: PHYSICAL FOR ASSISTED LIVING Chief Complaint: PHYSICAL FOR ASSISTED LIVING Is patient in pain?: Yes (GENERALIZED OA) Pain scale (1-10): 3 Allergies milk Adverse Reaction (Mild, Verified 10/08/24 11:07) gas wheat Adverse Reaction (Mild, Verified 10/08/24 11:07) Abd cramps/diarrhea Medications ???Medication ???Instructions ???Recorded ???Confirmed ???Type multivitamin with minerals 1 tab PO DAILY supplement 02/24/19 10/08/24 History triamcinolone acetonide 0.1 % 1 applic topical DAILY #15 grams 0 10/25/21 10/08/24 Rx topical cream psyllium husk 0.4 gram capsule 0.4 g PO DAILY 01/17/22 10/08/24 H istory (Daily Fiber) cholecalciferol (vitamin D3) 25 25 mcg PO DAILY 03/13/22 10/08/24 History mcg (1,000 unit) tablet polyethylene glycol 3350 17 gram 17 g PO DAILY PRN constipation 07/2510/08/24 History oral powder packet (Miralax) zinc 50 mg tablet 50 mg PO DAILY 03/13/22 10/08/24 H istory food supplemt, lactose-reduced 120 ml PO DAILY PRN supp 04/30/23 10/08/24 History 0.08 gram-1.5 kcal/mL oral liquid ascorbic acid (vitamin C) 500 mg 250 mg PO DAILY 10/29/23 10/08/24 History tablet mecobalamin (vitamin B12) 500 mcg mcg PO 12/11/23 10/08/24 History chewable tablet metoprolol tartrate 25 mg tablet 25 mg PO DAILY bp #90 tabs 4 10/08/24 Rx omeprazole 20 mg capsule,delayed 20 mg PO .prn #90 caps 05/13/24 Rx release hydrocodone-acetaminophen 5-325mg tab PO QDAY PRN 09/15/24 10/08/24 History 5mg-325mg fluoxetine 10 mg capsule 10 mg PO QDAY #60 caps 10/08/24 Rx furosemide 20 mg tablet 20 mg PO DAILY #90 tabs 10/08/24 0 10/08/24 Rx ibuprofen 200 mg tablet 200 mg PO .QD PRN 10/08/24 5 History nystatin 100,000 unit/gram topical 1 applic topical QDAY PRN 10/08/24 History cream quetiapine 100 mg tablet 50 mg (1/2 x 100 mg) PO QHS #60 10/08/24 Rx tabs Have you fallen in the past year?: No Nurse's Note: PATIENT REQUESTING TO ONLY TAKE 50 MG OF SEROQUEL AT BEDTIME RATHER THAN 100 MG. PATIENT [facility] BE [facility] TO [facility] Medical History (HFpEF) heart failure with preserved ejection fraction Vitamin B12 deficiency Chronic back pain Hip fracture Persistent atrial fibrillation Nonrheumatic mitral (valve) insufficiency Chronic systolic (congestive) heart failure Pleural effusion CAP (community acquired pneumonia) Sepsis Hypotension Nonrheumatic mitral (valve) prolapse Hypothyroidism History of basal cell carcinoma Anxiety and depression A-fib History of cataract Heart murmur GERD (gastroesophageal reflux disease) IBS (irritable bowel syndrome) History of hepatitis Hormone replacement therapy Surgical History History of cholecystectomy History of hysterectomy Family History Grandmother Colon cancer Grandfather Myocardial infarction Mother Heart disease Myocardial infarction Parkinsons Social History Smoking Status: Never smoker alcohol intake: never substance use type: other details: marijuana tea caffeine: Yes Type: tea what type of physical activity do you participate in: none HPI HPI Chief Complaint: PHYSICAL FOR ASSISTED LIVING Details: MARIBEL SIMPSON, is a 84 F who presents to the office today for physical examination as she is transitioning to assisted living. Her biggest complaint is she thinks the Seroquel is little too strong and is leaving her little fatigued and off balance in the morning. She would like me to have all of her medications as she is no longer going to be seeing the psychiatrist. ROS Const Constitutional: No body ache, chills, excessive sweating, fatigue, fever(s), frequent falls, headache(s), snoring, weakness, sleep problems or change in appetite Eyes Eyes: No blurry vision, change in vision or Light sensitivity ENT ENT (more content not included)... Normal [facility] 12 Lead EKG performed by [facility] on 09-15-2024 12 Lead EKG performed by [facility] [address] [place] [address] 12 Lead EKG performed by [facility] 09/15/24 0941 MR#: [id number] Acct: [id number] Name: MARIBEL SIMPSON Rep #: [id number] : 1940 84 From: Goyo Díaz MD Attending Dr: Dr. Goyo Díaz MD Status: DE P RIC Ordering Dr: Goyo íDaz MD Date: 09/15/24 Location: [facility] [place] Sex: F C Admitted: BMS/12 Lead EKG performed by [facility] ECG Report Interpretation Atrial fibrillation - occasional ectopic ventricular beat -Diffuse ST depression + Negative precordial T-waves -Nondiagnostic -possible digitalis effect, ABNORMAL Electronically signed on 09/15/2024 at 16:[address] Goyo Díaz [employer] Version [id number] 09/15/24 1624 Date Goyo Díaz MD CC: Dr. Ronni Sen, Date Dictated: 09/15/24 0941 Date Transcribed: 09/15/24940 Inside Sales Account Executive: Signed Normal [facility] Cardiology Visit Reporton Cardiology Visit Report [facility] [address] [place] [address] OFFICE VISIT Date of Service: 09/15/24 MR#: [id number] Acct: [id number] Name: MARIBEL SIMPSON Rep #: [id number] : 1940 Provider: Dr. Goyo robert MD Age/Sex: 84/F Location: [facility] [place] Status: Signed HPI HPI History of Present Illness Details: Patient is an 84-year-old white female that comes in today for monitoring of her cardiovascular status. The patient is Carlos Enrique she is accompanied by her nondominant and 2 daughters. Patient carries a history of heart failure with preserved ejection fraction EF known to be 60% on echocardiogram done May 2023. She has a history of persistent longstanding atrial fibrillation treated with Lanoxin and metoprolol. Her last echocardiogram showed left atrial enlargement that was severe. The patient does complain of significant dizziness and her Eliquis was appropriately discontinued by the primary service due to fall risk. The patient also complains of some nuisance bleeding with minimal skin disruptions. Other than the dizziness the patient reports she is doing fairly well in her home environment. She denies any PND orthopnea denies any lower extremity edema she denies any mekhi syncope. EKG done in the office today shows atrial fibrillation within the code occasional ectopic ventricular beat heart rate was 54 bpm there is diffuse ST segment changes consistent with digitalis effect. Intake Vital Signs 07/09/24 11:20 09/15/24 13:44 Height 5 ft 7 in 5 ft 7 in Weight: 105 lb 104 lb BMI 16.4 16.2 BP 112/70 115/58 L Blood Pressure Location Lt brachial Lt brachial Position Sitting Sitting Respiration 12 18 Pulse 62 61 Pulse Source Monitor Monitor Temp 97.7 F L Pulse Oximetry (%) 98 95 Oxygen Delivery Method room air room air Intake Visit Reasons: 9 M Ship Fastener Required: No Accompanied by: Daughters Is patient in pain?: No Allergies milk Adverse Reaction (Mild, Verified 09/15/24 13:44) gas wheat Adverse Reaction (Mild, Verified 09/15/24 13:44) Abd cramps/diarrhea Medications ???Medication ???Instructions ???Recorded ???Confirmed ???Type multivitamin with minerals 1 tab PO DAILY supplement 02/24/19 09/15/24 History triamcinolone acetonide 0.1 % 1 applic topical DAILY #15 grams 10/25/21 09/15/24 Rx topical cream psyllium husk 0.4 gram capsule 0.4 g PO DAILY 01/17/22 09/15/24 History (Daily Fiber) cholecalciferol (vitamin D3) 25 25 mcg PO DAILY 03/13/22 09/15/24 History mcg (1,000 unit) tablet polyethylene glycol 3350 17 gram 17 g PO DAILY PRN constipation 03/13/22 09/15/24 History oral powder packet (Miralax) quetiapine 100 mg tablet 100 mg PO QHS 03/13/22 09/15/24 History zinc 50 mg tablet 50 mg PO DAILY 03/13/22 09/15/24 History food supplemt, lactose-reduced 120 ml PO DAILY PRN supp 04/30/23 09/15/24 History 0.08 gram-1.5 kcal/mL oral liquid ascorbic acid (vitamin C) 500 mg 250 mg PO DAILY 10/29/23 09/15/24 History tablet estradiol 0.01% (0.1 mg/gram) 1 g vaginal 2XW #42.5 grams 12/11/23 09/15/24 Rx vaginal cream (Estrace) fluoxetine 10 mg capsule 10 mg PO DAILY #90 caps 12/11/23 09/15/24 Rx mecobalamin (vitamin B12) 500 mcg mcg PO 12/11/23 09/15/24 History chewable tablet metoprolol tartrate 25 mg tablet 25 mg PO DAILY bp #90 tabs 05/07/24 09/15/24 Rx omeprazole 20 mg capsule,delayed 20 mg PO .prn #90 caps 05/13/24 09/15/24 Rx release furosemide 20 mg tablet 20 mg PO DAILY #90 tabs 07/09/24 09/15/24 Rx fluoxetine 10 mg capsule 10 mg PO QDAY 09/15/24 09/15/24 History hydrocodone-acetaminophen 5-325mg tab PO QDAY PRN 09/15/24 09/15/24 History 5mg-325mg Ejection fraction %: 60 Have you fallen in the past year?: No PFSH Medical History (Updated 09/15/24 @ 14:[address] Goyo Díaz MD) (HFpEF) heart failure with preserved ejection fraction Vitamin B12 deficiency Chronic back pain Hip fracture Persistent atrial fibrillation Nonrheumatic mitral (valve) insufficiency Chronic systolic (congestive) heart failure Pleural effusion CAP (community acquired pneumonia) Sepsis Hypotension Nonrheumatic mitral (valve) prolapse Hypothyroidism History of basal cell carcinoma Anxiety and depression A-fib History of cataract Heart murmur GERD (gastroesophageal reflux disease) IBS (irritable bowel syndrome) History of hepatitis Hormone replacement therapy Surgical History History of cholecystectomy History of hysterectomy Family History Grandmother Colon cancer Grandfather Myocardial infarction Mother Heart disease Myocardial infarction Parkinsons Social History (Revie (more content not included)... Normal [facility] CBC W/Diff, Automatedon 11-0 Absolute Lymph 1.54 X10 3/uL Normal 0.83-4.51 [facility] Comment on above: Performed By: #### L 506.1000, L503.0105 #### [facility] [address] [place], [address] Absolute Neut 2.9 X10 3/uL Normal 2.0-7.7 [facility] Comment on above: Performed By: #### L 506.1000, L503.0105 #### [facility] [address] [place], [address] Basophils/100 WBC (Bld) 0.8 % Normal 0-1 [facility] Comment on above: Performed By: #### L 506.1000, L503.0105 #### [facility] [address] [place], [address] Eosinophils/100 WBC (Bld) 2.5 % Normal 0-5 [facility] Comment on above: Performed By: #### L 506.1000, L503.0105 #### [facility] [address] [place], [address] Erythrocyte distribution width (RBC) [Ratio] 13.2 % Normal 11.6-14.6 [facility] Comment on above: Performed By: #### L 506.1000, L503.0105 #### [facility] [address] [place], [address] Hematocrit (Bld) [Volume fraction] 39.3 % Normal 37-47 [facility] Comment on above: Performed By: #### L 506.1000, L503.0105 #### [facility] [address] [place], [address] Hemoglobin (Bld) [Mass/Vol] 12.4 g/dL Normal 12.0-15.0 [facility] Comment on above: Performed By: #### L 506.1000, L503.0105 #### [facility] [address] [place], [address] IG% 0.200 Normal 0.0-0.9 [facility] Comment on above: Result Comment: IG% - Immature Granulocytes (promyelocytes, myelocytes and metamyelocytes) > 1% indicates that a LEFT SHIFT is Present. Performed By: #### L 506.1000, L503.0105 #### [facility] [address] [place], [address] Lymphocytes/100 WBC (Bld) 29.8 % Normal 19-41 [facility] Comment on above: Performed By: #### L 506.1000, L503.0105 #### [facility] [address] [place], [address] MCH (RBC) [Entitic mass] 31.3 pg Normal 27.0-32.0 [facility] Comment on above: Performed By: #### L 506.1000, L503.0105 #### [facility] [address] [place], [address] MCHC (RBC) [Mass/Vol] 31.6 g/dL Low 32-36 [facility] Comment on above: Performed By: #### L 506.1000, L503.0105 #### [facility] [address] [place], [address] MCV (RBC) [Entitic vol] 99.2 fL High 81-99 [facility] Comment on above: Performed By: #### L 506.1000, L503.0105 #### [facility] [address] [place], [address] Monocytes/100 WBC (Bld) 10.6 % High 0-10 [facility] Comment on above: Performed By: #### L 506.1000, L503.0105 #### [facility] [address] [place], [address] Neutrophils/100 WBC (Bld) 56.1 % Normal 47-70 [facility] Comment on above: Performed By: #### L 506.1000, L503.0105 #### [facility] [address] [place], [address] Nucleated RBC (Bld) [#/Vol] 0 10*3/uL Normal 0-5 [facility] Comment on above: Performed By: #### L 506.1000, L503.0105 #### [facility] [address] [place], [address] Platelet mean volume (Bld) [Entitic vol] 11.0 fL Normal 6.2-12.0 [facility] Comment on above: Performed By: #### L 506.1000, L503.0105 #### [facility] [address] [place], [address] Platelets (Bld) [#/Vol] 192 10*3/uL Normal 150-450 [facility] Comment on above: Performed By: #### L 506.1000, L503.0105 #### [facility] [address] [place], [address] RBC (Bld) [#/Vol] 3.96 10*6/uL Low 4.2-5.4 [facility] Comment on above: Performed By: #### L 506.1000, L503.0105 #### [facility] [address] [place], [address] RDW SD 48.6 fl High 35.1-43.9 [facility] Comment on above: Performed By: #### L 506.1000, L503.0105 #### [facility] [address] [place], [address] WBC (Bld) [#/Vol] 5.2 10*3/uL Normal 4.4-11.0 [facility] Comment on above: Performed By: #### L 506.1000, L503.0105 #### [facility] [address] [place], [address] Comprehensive Metabolic Prof ilon 07-09-2024 Albumin [Mass/Vol] 3.9 g/dL Normal 3.2-5.0 [facility] Comment on above: Performed By: #### L 506.1000, L503.0105 #### [facility] [address] [place], [address] Albumin/Globulin [Mass ratio] 1.1 {ratio} Normal 0.9-2.4 [facility] Comment on above: Performed By: #### L 506.1000, L503.0105 #### [facility] [address] [place], [address] ALK P 60 U/L Normal 45-117 [facility] Comment on above: Performed By: #### L 506.1000, L503.0105 #### [facility] [address] [place], [address] ALT [Catalytic activity/Vol] 25 U/L Normal 13-56 [facility] Comment on above: Performed By: #### L 506.1000, L503.0105 #### [facility] [address] [place], [address] AST [Catalytic activity/Vol] 30 U/L Normal 15-37 [facility] Comment on above: Performed By: #### L 506.1000, L503.0105 #### [facility] [address] [place], [address] Bilirubin [Mass/Vol] 0.80 mg/dL Normal 0.20-1.00 [facility] Comment on above: Result Comment: For patients on eltrombopag therapy, use of Dimension [place] TBIL is not recommended. Performed By: #### L 506.1000, L503.0105 #### [facility] [address] [place], [address] BUN/CRE 20.6 RATIO High 10-20 [facility] Comment on above: Performed By: #### L 506.1000, L503.0105 #### [facility] [address] [place], [address] CA,Total 9.6 mg/dL Normal 8.5-10.1 [facility] Comment on above: Performed By: #### L 506.1000, L503.0105 #### [facility] [address] [place], [address] Chloride [Moles/Vol] 103 mmol/L Normal 98-107 [facility] Comment on above: Performed By: #### L 506.1000, L503.0105 #### [facility] [address] [place], [address] CO2 [Moles/Vol] 31.0 mmol/L Normal 21.0-32.0 [facility] Comment on above: Performed By: #### L 506.1000, L503.0105 #### [facility] [address] [place], [address] Creatinine [Mass/Vol] 0.83 mg/dL Normal 0.55-1.02 [facility] Comment on above: Result Comment: The validity of the calculated GFR GFRAA in patients over 70 years has not been determined. Clinical correlation is essential. Performed By: #### L 506.1000, L503.0105 #### [facility] [address] [place], [address] EST GFR - AA 85 mL/min Normal >60 [facility] Comment on above: Result Comment: Afri can [place] GFR Calc Performed By: #### L 506.1000, L503.0105 #### [facility] [address] [place], [address] GAP 5 Normal 5-15 [facility] Comment on above: Performed By: #### L 506.1000, L503.0105 #### [facility] [address] [place], [address] GFR/1.73 sq M.predicted among non-blacks MDRD (S/P/Bld) [Vol rate/Area] 70 mL/min/{1.73_m2} Normal >60 [facility] Comment on above: Result Comment: Non- GFR Calc Performed By: #### L 506.1000, L503.0105 #### [facility] [address] [place], [address] Globulin (S) [Mass/Vol] 3.4 g/dL Normal 2.2-4.2 [facility] Comment on above: Performed By: #### L 506.1000, L503.0105 #### [facility] [address] [place], [address] Glucose [Mass/Vol] 82 mg/dL Normal 74-106 [facility] Comment on above: Performed By: #### L 506.1000, L503.0105 #### [facility] [address] [place], [address] Potassium [Moles/Vol] 4.6 mmol/L Normal 3.5-5.1 [facility] Comment on above: Performed By: #### L 506.1000, L503.0105 #### [facility] [address] [place], [address] Sodium [Moles/Vol] 138 mmol/L Normal 136-145 [facility] Comment on above: Performed By: #### L 506.1000, L503.0105 #### [facility] [address] [place], [address] T PROT 7.3 g/dL Normal 6.4-8.2 [facility] Comment on above: Performed By: #### L 506.1000, L503.0105 #### [facility] [address] [place], [address] Urea nitrogen [Mass/Vol] 17 mg/dL Normal 7-18 [facility] Comment on above: Performed By: #### L 506.1000, L503.0105 #### [facility] [address] [place], [address] Digoxin Levelon 07-09-2024 DIG 1.10 ng/mL Normal 0.80-2.00 [facility] Comment on above: Performed By: #### L 506.1000, L503.0105 #### [facility] [address] [place], [address] Internal Medicine Office Vis iton 07-09-2024 Internal Medicine Office Visit [facility] [address] [place] [address] [place] [address] OFFICE VISIT Date of Service: 07/09/24 MR#: [id number] Acct: [id number] Name: MARIBEL SIMPSON Daniela Rep #: [id number] : 1940 Provider: Dr. Ronni Cisse own, DO Age/Sex: 84/F [place] [facility] Status: Signed Intake Vital Signs 03/04/24 11:09 07/09/24 11:20 Height 5 ft 7 in 5 ft 7 in Weight: 105 lb 6 oz 105 lb BMI 16.5 16.4 BP 120/74 112/70 Blood Pressure Location Lt brachial Lt brachial Position Sitting Sitting Respiration 16 12 Pulse 49 L 62 Pulse Source Monitor Monitor Temp 97.0 F L 97.7 F L Temp Source Temporal Temporal Pulse Oximetry (%) 97 98 Oxygen Delivery Method room air room air Intake Visit Reasons: 4 M FU Chief Complaint: 4m f/u Ship Fastener Required: No Accompanied by: Self Is patient in pain?: No Allergies milk Adverse Reaction (Mild, Verified 07/09/24 11:14) gas wheat Adverse Reaction (Mild, Verified 07/09/24 11:14) Abd cramps/diarrhea Medications ???Medication ???Instructions ???Recorded ???Confirmed ???Type multivitamin with minerals 1 tab PO DAILY supplement 02/24/19 07/09/24 History fluoxetine 20 mg tablet 20 mg PO DAILY 05/31/21 07/09/24 History triamcinolone acetonide 0.1 % 1 applic topical DAILY #15 grams 10/25/21 07/09/24 Rx topical cream psyllium husk 0.4 gram capsule 0.4 g PO DAILY 01/17/22 07/09/24 History (Daily Fiber) cholecalciferol (vitamin D3) 25 25 mcg PO DAILY 03/13/22 07/09/24 History mcg (1,000 unit) tablet polyethylene glycol 3350 17 gram 17 g PO DAILY PRN constipation 03/13/22 07/09/24 History oral powder packet (Miralax) quetiapine 100 mg tablet 100 mg PO QHS 03/13/22 07/09/24 History zinc 50 mg tablet 50 mg PO DAILY 03/13/22 07/09/24 History food supplemt, lactose-reduced 120 ml PO DAILY PRN supp 04/30/23 07/09/24 History 0.08 gram-1.5 kcal/mL oral liquid ascorbic acid (vitamin C) 500 mg 250 mg PO DAILY 10/29/23 07/09/24 History tablet estradiol 0.01% (0.1 mg/gram) 1 g vaginal 2XW #42.5 grams 12/11/23 07/09/24 Rx vaginal cream (Estrace) fluoxetine 10 mg capsule 10 mg PO DAILY #90 caps 12/11/23 07/09/24 Rx mecobalamin (vitamin B12) 500 mcg mcg PO 12/11/23 07/09/24 History chewable tablet metoprolol tartrate 25 mg tablet 25 mg PO DAILY bp #90 tabs 05/07/24 07/09/24 Rx omeprazole 20 mg capsule,delayed 20 mg PO .prn #90 caps 05/13/24 07/09/24 Rx release digoxin 125 mcg (0.125 mg) tablet 125 mcg PO DAILY heart #90 tabs 07/09/24 07/09/24 Rx furosemide 20 mg tablet 20 mg PO DAILY #90 tabs 07/09/24 07/09/24 Rx Have you fallen in the past year?: No [facility] History Vitamin B12 deficiency Chronic back pain Hip fracture Persistent atrial fibrillation Nonrheumatic mitral (valve) insufficiency Chronic systolic (congestive) heart failure Pleural effusion (HFpEF) heart failure with preserved ejection fraction CAP (community acquired pneumonia) Sepsis Hypotension Nonrheumatic mitral (valve) prolapse Hypothyroidism History of basal cell carcinoma Anxiety and depression A-fib History of cataract Heart murmur GERD (gastroesophageal reflux disease) IBS (irritable bowel syndrome) History of hepatitis Hormone replacement therapy Surgical History History of cholecystectomy History of hysterectomy Family History Grandmother Colon cancer Grandfather Myocardial infarction Mother Heart disease Myocardial infarction Parkinsons Social History Smoking Status: Never smoker alcohol intake: never substance use type: other details: marijuana tea caffeine: Yes Type: tea what type of physical activity do you participate in: none HPI HPI Chief Complaint: 4m f/u Details: MARIBEL SIMPSON, is a 84 F who presents to the office today for 4-month follow-up exam. She is accompanied by her daughter who says she has been doing fairly well and has no specific complaints except her has been diagnosed with lung cancer and has had a thoracentesis to remove 2 L of fluid from his lung. She has some questions about her medications, but with her daughters help she has been quite compliant. ROS Const Constitutional: No body ache, chills, excessive sweating, fatigue, fever(s), frequent falls, headache(s), snoring, weakness or change in appetite Eyes Eyes: No blurry vision, change in vision, eye pain or Light sensitivity ENT ENT: No abnormal hearing, ear or mastoid pain, tinnitus, nasal congestion, headache(s), neck pain or sore throat Resp Respiratory: No cough, shortness of breath, snoring or wheezing Cardio Cardiology: No chest pain at (more content not included)... Normal [facility] Vitamin B12on 07-09-2024 Cobalamin (Vitamin B12) [Mass/Vol] 759 pg/mL Normal 211-911 [facility] Comment on above: Performed By: #### L 506.1000, L503.0105 #### [facility] [address] [place], [place], [id number] Vitamin B12on 03-06-2024 Cobalamin (Vitamin B12) [Mass/Vol] 457 pg/mL Normal 211-911 [facility] Comment on above: Performed By: #### L 506.1000, L503.0105 #### [facility] [address] [place], [address] Vitamin D,25 Hydroxyon 03-06 Vitamin D 25-OH 54.1 ng/mL Normal [facility] Comment on above: Result Comment: Ruth min D 25(OH) Status Range Deficiency <20 ng/mL (50nmol/L) Insufficiency 20 - 30 ng/mL (50 - 75 nmol/L) Sufficiency 30 - 100 ng/mL (75 - 250 nmol/L) Toxicity >100 ng/mL (>250 nmol/L) Performed By: #### L 506.1000, L503.0105 #### [facility] [address] [place], [address] Internal Medicine Office Vis iton 03-04-2024 Internal Medicine Office Visit [facility] [address] [place] [address] [place] [address] OFFICE VISIT Date of Service: 03/04/24 MR#: [id number] Acct: [id number] Name: MARIBEL SIMPSON Rep #: [id number] : 1940 Provider: Dr. Ronni ca, DO Age/Sex: 83/F Location[facility] Status: Signed Intake Vital Signs 12/11/23 11:13 12/11/23 11:52 03/04/24 11:09 Height 5 ft 7 in 5 ft 7 in 5 ft 7 in Weight: 107 lb 8 oz 105 lb 6 oz BMI 16.8 16.5 BP 118/68 120/74 Blood Pressure Location Lt brachial Lt brachial Position Sitting Sitting Respiration 16 16 Pulse 59 L 49 L Pulse Source Monitor Monitor Temp 97.2 F L 97.0 F L Temp Source Temporal Temporal Pulse Oximetry (%) 99 97 Oxygen Delivery Method room air room air Intake Visit Reasons: 3 M FU Chief Complaint: 3m f/u Ship Fastener Required: No Accompanied by: Self Is patient in pain?: No Allergies milk Adverse Reaction (Mild, Verified 03/04/24 11:04) gas wheat Adverse Reaction (Mild, Verified 03/04/24 11:04) Abd cramps/diarrhea Medications ???Medication ???Instructions ???Recorded ???Confirmed ???Type multivitamin with minerals 1 tab PO DAILY supplement 02/24/19 03/04/24 History fluoxetine 20 mg tablet 20 mg PO DAILY 05/31/21 03/04/24 History triamcinolone acetonide 0.1 % 1 applic topical DAILY #15 grams 10/25/21 03/04/24 Rx topical cream psyllium husk 0.4 gram capsule 0.4 g PO DAILY 01/17/22 03/04/24 History (Daily Fiber) cholecalciferol (vitamin D3) 25 25 mcg PO DAILY 03/13/22 03/04/24 History mcg (1,000 unit) tablet polyethylene glycol 3350 17 gram 17 g PO DAILY PRN constipation 03/13/22 03/04/24 History oral powder packet (Miralax) quetiapine 100 mg tablet 100 mg PO QHS 03/13/22 03/04/24 History zinc 50 mg tablet 50 mg PO DAILY 03/13/22 03/04/24 History food supplemt, lactose-reduced 120 ml PO DAILY PRN supp 04/30/23 03/04/24 History 0.08 gram-1.5 kcal/mL oral liquid digoxin 125 mcg (0.125 mg) tablet 125 mcg PO DAILY heart #90 tabs 09/12/23 03/04/24 Rx furosemide 20 mg tablet 20 mg PO DAILY #90 tabs 09/12/23 03/04/24 Rx ascorbic acid (vitamin C) 500 mg 250 mg PO DAILY 10/29/23 03/04/24 History tablet hydrocodone-acetaminophen 5-325mg 1 tab PO QHS PRN 10/29/23 03/04/24 History 5mg-325mg estradiol 0.01% (0.1 mg/gram) 1 g vaginal 2XW #42.5 grams 12/11/23 03/04/24 Rx vaginal cream (Estrace) fluoxetine 10 mg capsule 10 mg PO DAILY #90 caps 12/11/23 03/04/24 Rx mecobalamin (vitamin B12) 500 mcg mcg PO 12/11/23 03/04/24 History chewable tablet metoprolol tartrate 25 mg tablet 25 mg PO DAILY bp 12/11/23 03/04/24 History omeprazole 20 mg capsule,delayed 20 mg PO .prn 12/11/23 03/04/24 History release Have you fallen in the past year?: No PFSH Medical History Vitamin B12 deficiency Chronic back pain Hip fracture Persistent atrial fibrillation Nonrheumatic mitral (valve) insufficiency Chronic systolic (congestive) heart failure Pleural effusion (HFpEF) heart failure with preserved ejection fraction CAP (community acquired pneumonia) Sepsis Hypotension Nonrheumatic mitral (valve) prolapse Hypothyroidism History of basal cell carcinoma Anxiety and depression A-fib History of cataract Heart murmur GERD (gastroesophageal reflux disease) IBS (irritable bowel syndrome) History of hepatitis Hormone replacement therapy Surgical History History of cholecystectomy History of hysterectomy Family History Grandmother Colon cancer Grandfather Myocardial infarction Mother Heart disease Myocardial infarction Parkinsons Social History Smoking Status: Never smoker alcohol intake: never substance use type: other details: marijuana tea caffeine: Yes Type: tea what type of physical activity do you participate in: none HPI HPI Chief Complaint: 3m f/u Details: MARIBEL SIMPSON, is a 83 F who presents to the office today for her 3-month follow-up exam. Her daughter is accompanying her and asking many of the questions. She wonders if she should continue to take Eliquis. She does not like taking the amount of Prozac she is taking. She is concerned whether she could take ibuprofen or naproxen for pain. ROS Const Constitutional: No body ache, chills, excessive sweating, fatigue, fever(s), frequent falls, headache(s), snoring, weakness or change in appetite Eyes Eyes: No blurry vision, change in vision, eye pain or Light sensitivity ENT ENT: No abnormal hearing, ear or mastoid pain, tinnitus, nasal congestion, headache(s), neck pain or sore throat Resp Respiratory: No cough, shortness of breath, snoring or wheez (more content not included)... Normal [facility] Absolute lymphocyte countOrd ered By: Ronni Sen on 03-07-2023 Lymphocytes Auto (Unsp spec) [#/Vol] 1.92 10*3/uL 0.83-4.51 [facility] Basophil percentageOrdered B y: Ronni Sen on 03-07-2023 Basophils/100 WBC (Bld) 0.7 % 0-1 [facility] Bilirubin [Mass/Vol] 0.50 mg/dL 0.20-1.00 [facility] Comment on above: For patients on eltr ombopag therapy, use of Dimension [place] TBIL is not recommended. Chloride [Moles/Vol] 101 mmol/L 98-107 [facility] Eosinophils/100 WBC (Bld) 1.8 % 0-5 [facility] Glucose [Mass/Vol] 82 mg/dL 74-106 [facility] Neutrophils (Bld) [#/Vol] 4.0 10*3/uL 2.0-7.7 [facility] Neutrophils/100 WBC (Bld) 59.9 % 47-70 [facility] Potassium [Moles/Vol] 4.3 mmol/L 3.5-5.1 [facility] Protein [Mass/Vol] 7.2 g/dL 6.4-8.2 [facility] Sodium [Moles/Vol] 137 mmol/L 136-145 [facility] WBC (Bld) [#/Vol] 6.7 10*3/uL 4.4-11.0 [facility] Blood erythrocytes count (nu mber/volume)Ordered By: Ronni Sen on 03-07-2023 RBC (Bld) [#/Vol] 4.08 10*6/uL 4.2-5.4 [facility] Blood hemoglobin measurement (mass/volume)Ordered By: Ronni Sen on 03-07-2023 Hemoglobin (Bld) [Mass/Vol] 12.7 g/dL 12.0-15.0 [facility] Blood lymphocytes/100 leukoc ytesOrdered By: Ronni Sen on 03-07-2023 Lymphocytes/100 WBC (Bld) 28.5 % 19-41 [facility] Blood monocytes/100 leukocyt esOrdered By: Ronni Sen on 03-07-2023 Monocytes/100 WBC (Bld) 8.8 % 0-10 [facility] Blood platelet mean volumeOr dered By: Ronni Sen on 03-07-2023 Platelet mean volume (Bld) [Entitic vol] 10.7 fL 6.2-12.0 [facility] Determination of erythrocyte mean corpuscular volume (MCV)Ordered By: Ronni Sen on 03-07-2023 MCV (RBC) [Entitic vol] 100.2 fL 81-99 [facility] Hematocrit Auto (Bld) [Volum e fraction]Ordered By: Ronni Sen on 03-07-2023 Hematocrit (Bld) [Volume fraction] 40.9 % 37-47 [facility] - Chemistry and C hemistry - challengeOrdered By: Ronnishiloh Sen on 03-07-2023 ALP [Catalytic activity/Vol] 48 U/L 45-117 [facility] ALT [Catalytic activity/Vol] 27 U/L 13-56 [facility] CO2 [Moles/Vol] 32.0 mmol/L 21.0-32.0 [facility] Free T4 [Mass/Vol] 0.77 ng/dL 0.76-1.46 [facility] Globulin (S) [Mass/Vol] 3.6 g/dL 2.2-4.2 [facility] Urea nitrogen/Creatinine [Mass ratio] 30.6 mg/mg 10-20 [facility] - Hematology and Cell countsOrdered By: Ronni Sen on 03-07-2023 Erythrocyte distribution width (RBC) [Entitic vol] 47.7 fL 35.1-43.9 [facility] Erythrocyte distribution width (RBC) [Ratio] 13.0 % 11.6-14.6 [facility] Immature granulocytes/100 WBC (Bld) 0.300 % 0.0-0.9 [facility] Comment on above: IG% - Immature Granu locytes (promyelocytes, myelocytes and metamyelocytes) > 1% indicates that a LEFT SHIFT is Present. MCH (RBC) [Entitic mass] 31.1 pg 27.0-32.0 [facility] Nucleated RBC/100 WBC (Bld) [Ratio] 0 % 0-5 [facility] MCHC Auto (RBC) [Mass/Vol]Or dered By: Ronni Sen on 03-07-2023 MCHC (RBC) [Mass/Vol] 31.1 g/dL 32-36 [facility] No Panel InformationOrdered By: Ronni Sen on 03-07-2023 Estimated GFR (MDRD) Amer 95 mL/min >60 [facility] Comment on above: GFR Calc Estimated GFR (MDRD) Non-Af Amer 79 mL/min >60 [facility] Comment on above: Non- GFR Calc Thyroid Stimulating Hormone (TSH) 3.63 uIU/mL 0.358-3.74 [facility] Platelets bldOrdered By: Pito Sen on 03-07-2023 Platelets (Bld) [#/Vol] 205 10*3/uL 150-450 [facility] Serum or plasma albumin paul urement (mass/volume)Ordered By: Ronni Sen on 03-07-2023 Albumin [Mass/Vol] 3.6 g/dL 3.2-5.0 [place] Serum or plasma albumin/glob ulin mass ratioOrdered By: Ronni Sen on 03-07-2023 Albumin/Globulin [Mass ratio] 1.0 {ratio} 0.9-2.4 [facility] Serum or plasma calcium paul urement (mass/volume)Ordered By: Ronni Sen on 03-07-2023 Calcium [Mass/Vol] 9.2 mg/dL 8.5-10.1 [facility] Serum or plasma creatinine m easurement (mass/volume)Ordered By: Ronni Sen on 03-07-2023 Creatinine [Mass/Vol] 0.75 mg/dL 0.55-1.02 [facility] Comment on above: The validity of the calculated GFR & GFRAA in patients over 70 years has not been determined. Clinical correlation is essential. Serum or plasma urea nitroge n measurement (mass/volume)Ordered By: Ronni Sen on 03-07-2023 Urea nitrogen [Mass/Vol] 23 mg/dL 7-18 [facility] Thin prep Papanicolaou smear with manual screeningOrdered By: Ronni Sen on 03-07-2023 Thin prep Papanicolaou smear with manual screening 31 U/L 15-37 [facility] Thin prep Papanicolaou smear with manual screening 4 5-15 [facility] Basophil percentageOrdered B y: Dr. Sen on 12-05-2022 Basophil percentage 5-10 SEEN /hpf 0-5 [facility] Bilirubin Test strip Ql (U)O rdered By: Dr. Sen on 12-05-2022 Bilirubin Ql (U) Negative Negative [facility] Ketones Test strip Ql (U)Ord ered By: Dr. Sen on 12-05-2022 Ketones Ql (U) Negative Negative [facility] Mucus LM Ql (Urine sed)Order ed By: Dr. Sen on 12-05-2022 Mucus Ql (Urine sed) 0 SEEN /hpf [facility] Nitrite Test strip Ql (U)Ord ered By: Dr. Sen on 12-05-2022 Nitrite Ql (U) Negative Negative [facility] No Panel InformationOrdered By: Dr. Sne on 12-05-2022 Vitamin D 25-Hydroxy 58.7 ng/mL [facility] Comment on above: Vitamin D 25(OH) Sta tus Range Deficiency <20 ng/mL (50nmol/L) Insufficiency 20 - 30 ng/mL (50 - 75 nmol/L) Sufficiency 30 - 100 ng/mL (75 - 250 nmol/L) Toxicity >100 ng/mL (>250 nmol/L) Protein Test strip Ql (U)Ord ered By: Dr. Sen on 12-05-2022 Protein Ql (U) Negative Negative [facility] Squamous epithelial cells de tection in urine sediment by light microscopyOrdered By: Dr. Sen on 12-05-2022 Epithelial cells.squamous LM Ql (Urine sed) 0-5 SEEN /hpf 5-10 [facility] Urine blood detectionOrdered By: Dr. Sen on 12-05-2022 RBC Ql (U) 10 /ul Negative [facility] RBC Ql (U) 0 SEEN /hpf 0-5 [facility] Urine clarityOrdered By: Dr. Sen on 12-05-2022 Clarity (U) Clear Clear [facility] Urine color determinationOrd ered By: Dr. Sen on 12-05-2022 Color (U) Yellow Yellow [facility] Urine glucose detectionOrder ed By: Dr. Sen on 12-05-2022 Glucose Ql (U) Normal mg/dl Normal [facility] Urine leukocyte esterase det ection by dipstickOrdered By: Dr. Sen on 12-05-2022 Leukocyte esterase Test strip Ql (U) 500 /ul Negative [facility] Urine pHOrdered By: Dr. Elsa johnson on 12-05-2022 pH (U) 6.0 [pH] 5.0 - 8.0 [facility] Urine sediment bacteria coun t by microscopy (number/high power field)Ordered By: Dr. Sen on 12-05-2022 Bacteria LM.HPF (Urine sed) [#/Area] RARE /hpf None Seen [facility] Urine specific gravity measu rementOrdered By: Dr. Sen on 12-05-2022 Specific gravity (U) [Rel density] 1.010 1.002-1.03 0 [facility] Urobilinogen Auto test strip Ql (U)Ordered By: Dr. Sen on 12-05-2022 Urobilinogen Ql (U) Normal mg/dl Normal [facility] Basophil percentageon 2021 Bilirubin [Mass/Vol] 0.80 mg/dL 0.20-1.00 [facility] Work Phone: Comment on above: For patients on eltr ombopag therapy, use of Dimension [place] TBIL is not recommended. Chloride [Moles/Vol] 102 mmol/L 98-107 [facility] Work Phone: Cholesterol [Mass/Vol] 159 mg/dL <200 [facility] Work Phone: Comment on above: <200 mg/dL Desirable 200-240 mg/dL Borderline >240 mg/dL High Risk Glucose [Mass/Vol] 78 mg/dL 74-106 [facility] Work Phone: Potassium [Moles/Vol] 4.5 mmol/L 3.5-5.1 [facility] Work Phone: Protein [Mass/Vol] 6.8 g/dL 6.4-8.2 [facility] Work Phone: Sodium [Moles/Vol] 139 mmol/L 136-145 [facility] Work Phone: Triglyceride [Mass/Vol] 119 mg/dL [facility] Work Phone: Comment on above: The drugs N-Acetylcy steine and Metamizole may falsely depress this assay.Serum Triglycerides Reference Interval Normal <150 mg/dL Borderline high 150 - 199 mg/dL High 200 - 499 mg/dL Very High > or = 500 mg/dL WBC (Bld) [#/Vol] 4.7 10*3/uL 4.4-11.0 [facility] Work Phone: Blood erythrocytes count (nu mber/volume)on 01-17-2022 RBC (Bld) [#/Vol] 3.97 10*6/uL 4.2-5.4 [facility] Work Phone: Blood hemoglobin measurement (mass/volume)on 01-17-2022 Hemoglobin (Bld) [Mass/Vol] 12.8 g/dL 12.0-15.0 [facility] Work Phone: Blood platelet mean volumeon 01-17-2022 Platelet mean volume (Bld) [Entitic vol] 10.9 fL 6.2-12.0 [facility] Work Phone: Determination of erythrocyte mean corpuscular volume (MCV)on 01-17-2022 MCV (RBC) [Entitic vol] 101.0 fL 81-99 [facility] Work Phone: Hematocrit Auto (Bld) [Volum e fraction]on 01-17-2022 Hematocrit (Bld) [Volume fraction] 40.1 % 37-47 [facility] Work Phone: Laboratory - Chemistry and C hemistry - challengeon 01-17-2022 ALP [Catalytic activity/Vol] 53 U/L 45-117 [facility] Work Phone: ALT [Catalytic activity/Vol] 28 U/L 13-56 [facility] Work Phone: CO2 [Moles/Vol] 33.0 mmol/L 21.0-32.0 [facility] Work Phone: Globulin (S) [Mass/Vol] 3.2 g/dL 2.2-4.2 [facility] Work Phone: Urea nitrogen/Creatinine [Mass ratio] 25.6 mg/mg 10-20 [facility] Work Phone: Laboratory - Hematology and Cell countson 01-17-2022 Erythrocyte distribution width (RBC) [Entitic vol] 51.3 fL 35.1-43.9 [facility] Work Phone: Erythrocyte distribution width (RBC) [Ratio] 13.7 % 11.6-14.6 [facility] Work Phone: MCH (RBC) [Entitic mass] 32.2 pg 27.0-32.0 [facility] Work Phone: MCHC Auto (RBC) [Mass/Vol]on 01-17-2022 MCHC (RBC) [Mass/Vol] 31.9 g/dL 32-36 [facility] Work Phone: No Panel Informationon 01-17 Digoxin Level 1.29 ng/mL 0.80-2.00 [facility] Work Phone: Estimated GFR (MDRD) Amer 82 mL/min >60 [facility] Work Phone: Comment on above: GFR Calc Estimated GFR (MDRD) Non-Af Amer 68 mL/min >60 [facility] Work Phone: Comment on above: Non- GFR Calc Platelets bldon 01-17-2022 Platelets (Bld) [#/Vol] 171 10*3/uL 150-450 [facility] Work Phone: Serum or plasma albumin paul urement (mass/volume)on 01-17-2022 Albumin [Mass/Vol] 3.6 g/dL 3.2-5.0 [facility] Work Phone: Serum or plasma albumin/glob ulin mass ratioon 01-17-2022 Albumin/Globulin [Mass ratio] 1.1 {ratio} 0.9-2.4 [facility] Work Phone: Serum or plasma calcium paul urement (mass/volume)on 01-17-2022 Calcium [Mass/Vol] 9.2 mg/dL 8.5-10.1 [facility] Work Phone: Serum or plasma cholesterol in HDL measurement (mass/volume)on 01-17-2022 Cholesterol in HDL [Mass/Vol] 64 mg/dL [facility] Work Phone: Comment on above: The drugs N-Acetylcy steine and Metamizole may falsely depress this assay. Reference Range HDL <40 mg/dL Low HDL Cholesterol HDL >or= 60 mg/dL High HDL Cholesterol Serum or plasma cholesterol in VLDL measurement (mass/volume)on 01-17-2022 Cholesterol in VLDL [Mass/Vol] 24 mg/dL 5-40 [facility] Work Phone: Serum or plasma creatinine m easurement (mass/volume)on 01-17-2022 Creatinine [Mass/Vol] 0.86 mg/dL 0.55-1.02 [facility] Work Phone: Comment on above: The validity of the calculated GFR & GFRAA in patients over 70 years has not been determined. Clinical correlation is essential. Serum or plasma low density lipoprotein (LDL) cholesterol measurement (mass/volume)on 01-17-2022 Cholesterol in LDL [Mass/Vol] 71 mg/dL 0-130 [facility] Work Phone: Serum or plasma urea nitroge n measurement (mass/volume)on 01-17-2022 Urea nitrogen [Mass/Vol] 22 mg/dL 7-18 [facility] Work Phone: Thin prep Papanicolaou smear with manual screeningon 01-17-2022 Thin prep Papanicolaou smear with manual screening 33 U/L 15-37 [facility] Work Phone: Thin prep Papanicolaou smear with manual screening 4 5-15 [facility] Work Phone: History and Physical - Surgi billy Update < 30 dayson 06-19-2019 History and Physical - Surgical Update < 30 days History & Physical Reviewed: I have reviewed the History and Physical dated: 26-May-2019 History and Physical reviewed and relevant findings noted. Patient examined to review pertinent physical findings.: No significant changes Home Medications Reviewed: no changes noted Allergies Reviewed: no changes noted This patient has been seen and discussed with the attending physician responsible for performing the procedure: yes Signatures/Attestation/Cer tification: Note Completion: Attending Provider Inpatient Certification StatementObservation patient/other outpatient visits Electronic Signatures: Isreal Sanon) (Signed 19-Jun-2019 06:31) Authored: History & Physical Reviewed, Signatures/Attestation/Cer tification Last Updated: 19-Jun-2019 06:31 by Isreal Sanon) [facility] Preop Checkliston 06-19-2019 Preop Checklist Preop Checklist: Preop Checklist: Arrival [id number] Arrival Time07:05 NPO [id number] 04:30 NPO Commentsip of water with meds ID Band Onyes Consent Signedyes H&P Completeyes Anesthesia Assessment Completedyes EKG Performednot ordered Chest X-Ray Performednot ordered HCG Urine TestN/A Chlorhexadine Bath Givennot applicable Nasal Antiseptic Appliednot applicable Hair Washedyes Soap and water bath with hair shampoo the night before surgerynot applicable SCD's Appliednot applicable JOANNE Hose Appliednot ordered Denturesleft in patient Prostheticsnot applicable Hearing Aidsnot applicable Valuables Securednot applicable Glasses / Contactsleft in patient room Bowel Prepno Cardiovascular Assessment: Apicalregular Respiratory Assessment: Respirationsregular Air Exchangegood Breath Soundsclear Neurological Assessment: Level of Consciousnessalert Mobilitymoves all extremities Able to Express Selfyes Age Appropriateyes Emotional Statuscalm Preop Education: Surgical Site Infection Preventionyes Pain Scales and Managementyes Language / Communication: Language / CommunicationEnglish Electronic Signatures: Kerrie Hill (SHEYLA) (Signed 19-Jun-2019 07:40) Authored: Preop Checklist Last Updated: 19-Jun-2019 07:40 by Kerrie Hill (SHEYLA) [facility] Patient Profile - Preop v2on 06-18-2019 Patient Profile - Preop v2 Profile: Initial Info: How to be AddressedMalinda Spoken Language PreferredEnglish Source of Informationpatient Are you currently using the Personal Electronic Health Record or [place] Are you interested in learning more about [facility] for the management of your healthnot at this time Instructions Givenappropriate clothing, 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 (procedure may be cancelled if no corporate driver), center location, insurance information, remove jewerly/piercings Prep Instructions Reviewedyes Instructed to Have No Fluids Aftermidnight Stated Reason for AdmissionCataract Right Eye Primary Contact Name and NumberMaribel Simpson [phone] Limitations on Visitors/Phone Callsnone Patient Belongingsremains with patient Patient Belongings Remaining with Patientclothing Medications Brought to Hospitalno General Health: Weight in kg45 kilogram(s) Weight in lbs99.2 pound(s) Weight Methodactual (measured) Scale Typestanding Height in cm170.1 centimeter(s) Height in feet5 feet Height in inches7 inch(es) Height Methodstated BMI (kg/m2)15.552 square meter Patient or Family Member Reaction to Anesthesiano previous reaction; no previous family member reaction Relationship/Environ: Resource/Environmental Concernsnone Substance: Current or Former Substance Use never: Cigarette/Tobacco, e-Cigarette/Vaping, Alcohol, Street Drugs Risk Screens: Advance Directive/DNRno Advance Directive Information Givenpatient/family declined Advance Directive Mental Healthnot applicable During the past month, have you often been bothered by feeling down, depressed or hopelessno During the past month, have you often had little interest or pleasure in doing thingsno Have you had any thoughts of harming yourselfno Have you had any thoughts of harming anyone elseno Are you or have you been threatened or abused physically,emotionally or sexually abused by anyoneno Do you feel UNSAFE going back to the place you are livingno Patient is Able to be Assessed for Learningyes Factors Influencing Readiness to Learnfatigue Factors that Impact Ability to Learnnone Devices/Methods Used to Communicatenone Learning Preferencesverbal instruction; written material Cultural Considerationsnone Developmental Considerationsnone Jew Considerationsnone Other learner availableno [place] RiskPatient location auto qualifies him/her for HIGH RISK. Are there any cultural, spiritual, adventism practices/values/needs that are important for us to knowno Do you want a visit/item from Pastoral [facility]o Would you like your Underground Foreman/Manager Dialysis notifiedno Pain Scalenumerical 0-10 Pain Scale Educationteaching provided Current Pain Level0 = None Acceptable Pain Level3 = Mild Expression of Pain (nonverbal)none Lifestyle Changes/Adaptations in Response to Painno change Barriers to Reporting Painnone Chronic Painno Information Review: Allergies, Home Meds and Significant Events have been Reviewed and Verified with Patient/Familyyes Allergy, Intolerance, Adverse Event: Intolerances: Wheat: Food, Nausea/Vomiting, Active Dairy Products: Food, Nausea/Vomiting, Active Problem List: Medical History: Vertigo: Catalog Name: Dizziness and giddiness Hypertension: Catalog Name: Essential (primary) hypertension Cataract: Catalog Name: Unspecified cataract Hypothyroidism: Catalog Name: Hypothyroidism, unspecified IBS (irritable bowel syndrome): Catalog Name: Irritable bowel syndrome without diarrhea Anxiety and depression: Catalog Name: Anxiety disorder, unspecified Atrial fibrillation: Catalog Name: Unspecified atrial fibrillation Surg History: History of cataract surgery: Catalog Name: Cataract extraction status, unspecified eye History of hysterectomy: Catalog Name: Acquired absence of both cervix and uterus History of laparoscopic cholecystectomy: Catalog Name: Acquired absence of other specified parts of digestive tract Electronic Signatures: Kerrie Hill (SHEYLA) (Signed 19-Jun-2019 07:29) Authored: Profile, Additional Information Theresa Hernandez) (Signed 18-Jun-2019 10:11) Authored: Profile, Additional Information Last Updated: 19-Jun-2019 07:29 by Kerrie Hill (SHEYLA) [facility] LIPID 05-16-2018 Cholesterol in HDL mass conc 96 mg/dL High 40-60 [facility] ([place]) Comment on above: Performed By: #### L IPID ####[facility] [place] [id number] Cholesterol in LDL mass conc 109 mg/dL Normal 0-130 [facility] ([place]) Comment on above: Performed By: #### L IPID ####[facility] [place] [id number] Cholesterol mass conc 213 mg/dL High 0-200 [facility] (MD) Comment on above: Result Comment: Chol esterol Reference Interval:Less than 200 [id number] Borderline high [id number] and above High risk Performed By: #### L IPID ####[facility] [place] [address] Triglyceride mass conc 41 mg/dL Normal 0-150 [facility] ([place]) Comment on above: Result Comment: Trig lyceride Reference Interval:Less than 150 [id number] Borderline high [id number] High [id number] or higher Very high risk Performed By: #### L IPID ####[place] [id number] [place] [address] NM MYOCARDIAL SPECT STRESS/R ESTon 05-16-2018 NM MYOCARDIAL SPECT STRESS/REST ORIGINALNM MYOCARDIAL SPECT STRESS/REST CLINICAL STATEMENT: SOB TECHNIQUE:Lexiscan dose:0.4 mgRadiopharmaceutical (stress): Tc-99m Sestamibi Dose:10.1 mCi Radiopharmaceutical (rest): Tc-99m Sestamibi Dose:30.3 mCi SPECT acquisition and processingReconstruction and reorientation of SPECT images into short axis, vertical and horizontal long axis planes Quantitative LVEF assessment COMPARISON:None REPORT:Left ventricle appears normal in size on both stress and rest images. There is homogeneous radiotracer uptake throughout the myocardium on both the stress and resting images. Gated SPECT imaging revealed normal wall motion and normal end systolic brightening and thickening of all myocardial segments. Calculated LVEF 67%. Left ventricle end-diastolic volume 35 mL and TID ratio 0.63. IMPRESSION:1. No evidence of inducible ischemia or prior myocardial infarction.2. Normal wall motion and normal systolic function, LVEF 67%.3. No prior study available for comparison. Interpreted By: Jackie Bloomreliminary Report By: Sandhya BloomhElectronically Signed By: Odell Bloom Dictated Date: 05/16/2018 11:31:47 AM Prelim Date: 05/16/2018 11:31:47 AM Sign Date: 05/16/2018 11:39:10 AM Normal [facility] ([place]) [place] Stress Teston 05-16 [place] Stress Test Normal [facility] ([place]) FT4on 02-20-2018 T4 free mass conc 0.9 ng/mL Normal 0.6-1.7 [facility] ([place]) Comment on above: Result Comment: Claudia michaud normal(expected)range Performed By: #### T SH, FT4 ####[place] [address] [place], [place] [address]#### T3 ####[place] [id number] [place] [address] T3on 02-20-2018 Total T3 113 ng/dL Normal 60-181 [facility] ([place]) Comment on above: Result Comment: Antonietta pollock note ? as of 03/17/17 new pediatric reference intervals were added for this test. Performed By: #### T SH, FT4 ####[place] [address] [place], [place] [address]#### T3 ####[facility] [place], [place] [id number] TSHon 02-20-2018 Thyrotropin Qn 1.90 mcIU/mL Normal 0.27-4.20 [facility] ([place]) Comment on above: Performed By: #### T SH, FT4 ####[address] [place], [place] [address]#### T3 ####[place] [id number] [place] [address] Vital Signs Date Time Vital Sign Value Performing Clinician Faci lity 01-20-2025 15:11-0400 Body temperature 98 [degF] Dr. Ronni Sen DO Work Phone: [facility] 01-20-2025 15:11-0400 Diastolic blood pressure 83 mm[Hg] Dr. Ronni Sen DO Work Phone: [facility] 01-20-2025 15:11-0400 Heart rate 90 /min Dr. Ronni Sen DO Work Phone: [facility] 01-20-2025 15:11-0400 Respiratory rate 16 /min Dr. Ronni Sen DO Work Phone: [facility] 01-20-2025 15:11-0400 SaO2% (BldA) [Mass fraction] 92 % Dr. Ronni Sen DO Work Phone: [facility] 01-20-2025 15:11-0400 Systolic blood pressure 127 mm[Hg] Dr. Ronni Sen DO Work Phone: [facility] 01-20-2025 11:48-0400 Body height [address] Ronni Sen DO Work Phone: [facility] 01-20-2025 11:48-0400 Body mass index (BMI) [Ratio] 17.5 kg/m2 Dr. Ronni Sen DO Work Phone: [facility] 01-20-2025 11:48-0400 Body weight 50.[address] Ronni Sen DO Work Phone: [facility] 12-05-2024 11:42-0400 Diastolic blood pressure 76 mm[Hg] Dr. Ronni Sen DO Work Phone: [facility] 12-05-2024 11:42-0400 Heart rate 77 /min Dr. Ronni Sen DO Work Phone: [facility] 12-05-2024 11:42-0400 Respiratory rate 16 /min Dr. Ronni Sen DO Work Phone: [facility] 12-05-2024 11:42-0400 SaO2% (BldA) [Mass fraction] 96 % Dr. Ronni Sen DO Work Phone: [facility] 12-05-2024 11:42-0400 Systolic blood pressure 118 mm[Hg] Dr. Ronni Sen DO Work Phone: [facility] 10-08-2024 11:18-0500 Body mass index (BMI) [Ratio] 16.9 kg/m2 Dr. Ronni Sen DO Work Phone: [facility] 10-08-2024 11:18-0500 Body temperature 98.5 [degF] Dr. Ronni Sen DO Work Phone: [facility] 10-08-2024 11:18-0500 Body weight 48.[address] Ronni Sen DO Work Phone: [facility] 10-08-2024 11:18-0500 Diastolic blood pressure 54 mm[Hg] Dr. Ronni Sen DO Work Phone: [facility] 10-08-2024 11:18-0500 Heart rate 75 /min Dr. Ronni Sen DO Work Phone: [facility] 10-08-2024 11:18-0500 Respiratory rate 16 /min Dr. Ronni Sen DO Work Phone: [facility] 10-08-2024 11:18-0500 SaO2% (BldA) [Mass fraction] 97 % Dr. Ronni Sen DO Work Phone: [facility] 10-08-2024 11:18-0500 Systolic blood pressure 108 mm[Hg] Dr. Ronni Sen DO Work Phone: [facility] 04-30-2023 14:36-0400 Body height 170.[address] Ronni Sen Work Phone: [facility] 04-30-2023 14:36-0400 Body mass index (BMI) [Ratio] 16.4 kg/m2 Dr. Ronni Sen Work Phone: [facility] 04-30-2023 14:36-0400 Body weight 47.[address] Ronni Sen Work Phone: [facility] 04-30-2023 14:36-0400 Diastolic blood pressure 60 mm[Hg] Dr. Ronni Sen Work Phone: [facility] 04-30-2023 14:36-0400 Heart rate 64 /min Dr. Ronni Sen Work Phone: [facility] 04-30-2023 14:36-0400 Respiratory rate 18 /min Dr. Ronni Sen Work Phone: [facility] 04-30-2023 14:36-0400 SaO2% (BldA) [Mass fraction] 95 % Dr. Ronni Sen Work Phone: [facility] 04-30-2023 14:36-0400 Systolic blood pressure 118 mm[Hg] Dr. Ronni Sen Work Phone: [facility] 03-07-2023 14:05-0400 Body height 170.[address] Ronni Sen Work Phone: [facility] 03-07-2023 14:05-0400 Body mass index (BMI) [Ratio] 16.2 kg/m2 Dr. Ronni Sen Work Phone: [facility] 03-07-2023 14:05-0400 Body temperature 98 [degF] Dr. Ronni Sen Work Phone: [facility] 03-07-2023 14:05-0400 Body weight 46.[address] Ronni Sen Work Phone: [facility] 03-07-2023 14:05-0400 Diastolic blood pressure 62 mm[Hg] Dr. Ronni Sen Work Phone: [facility] 03-07-2023 14:05-0400 Heart rate 62 /min Dr. Ronni Sen Work Phone: [facility] 03-07-2023 14:05-0400 Respiratory rate 16 /min Dr. Ronni Sen Work Phone: [facility] 03-07-2023 14:05-0400 SaO2% (BldA) [Mass fraction] 98 % Dr. Ronni Sen Work Phone: [facility] 03-07-2023 14:05-0400 Systolic blood pressure 108 mm[Hg] Dr. Ronni Sen Work Phone: [facility] 12-05-2022 15:00-0400 Body height 170.[address] Ronni Sen Work Phone: [facility] 12-05-2022 15:00-0400 Body mass index (BMI) [Ratio] 16.9 kg/m2 Dr. Ronni Sen Work Phone: [facility] 12-05-2022 15:00-0400 Body temperature 98.1 [degF] Dr. Ronni Sen Work Phone: [facility] 12-05-2022 15:00-0400 Body weight 48.[address] Ronni Sen Work Phone: [facility] 12-05-2022 15:00-0400 Diastolic blood pressure 60 mm[Hg] Dr. Ronni Sen Work Phone: [facility] 12-05-2022 15:00-0400 Heart rate 59 /min Dr. Ronni Sen Work Phone: [facility] 12-05-2022 15:00-0400 Respiratory rate 16 /min Dr. Ronni Sen Work Phone: [facility] 12-05-2022 15:00-0400 SaO2% (BldA) [Mass fraction] 96 % Dr. Ronni Sen Work Phone: [facility] 12-05-2022 15:00-0400 Systolic blood pressure 110 mm[Hg] Dr. Ronni Sen Work Phone: [facility] 10-25-2022 11:30-0500 Body mass index (BMI) [Ratio] 16.7 kg/m2 Dr. Ronni Sen Work Phone: [facility] 10-25-2022 11:30-0500 Body weight 48.[address] Ronni Sen Work Phone: [facility] 10-25-2022 11:30-0500 Diastolic blood pressure 60 mm[Hg] Dr. Ronni Sen Work Phone: [facility] 10-25-2022 11:30-0500 Heart rate 64 /min Dr. Ronni Sen Work Phone: [facility] 10-25-2022 11:30-0500 Respiratory rate 18 /min Dr. Ronni Sen Work Phone: [facility] 10-25-2022 11:30-0500 Systolic blood pressure 110 mm[Hg] Dr. Ronni Sen Work Phone: [facility] 08-15-2022 10:40-0500 Body temperature 97.6 [degF] Dr. Ronni Sen Work Phone: [facility] 08-15-2022 10:40-0500 Body weight 48.[address] Ronni Sen Work Phone: [facility] 08-15-2022 10:40-0500 Diastolic blood pressure 54 mm[Hg] Dr. Ronni Sen Work Phone: [facility] 08-15-2022 10:40-0500 Heart rate 57 /min Dr. Ronni Sen Work Phone: [facility] 08-15-2022 10:40-0500 Respiratory rate 16 /min Dr. Ronni Sen Work Phone: [facility] 08-15-2022 10:40-0500 SaO2% (BldA) [Mass fraction] 91 % Dr. Ronni Sen Work Phone: [facility] 08-15-2022 10:40-0500 Systolic blood pressure 102 mm[Hg] Dr. Ronni Sen Work Phone: [facility] 06-01-2022 13:14-0400 Body height 170.[address] Ronni Sen Work Phone: [facility] 01-17-2022 10:37-0400 Body height 170.[address] Ronni Sen Work Phone: [facility] Work Phone: 01-17-2022 10:37-0400 Body mass index (BMI) [Ratio] 16.6 kg/m2 Dr. Ronni Sen Work Phone: [facility] Work Phone: 01-17-2022 10:37-0400 Body temperature 98.1 [degF] Dr. Ronni Sen Work Phone: [facility] Work Phone: 01-17-2022 10:37-0400 Body weight 48.[address] Ronni Sen Work Phone: [facility] Work Phone: 01-17-2022 10:37-0400 Diastolic blood pressure 60 mm[Hg] Dr. Ronni Sen Work Phone: [facility] Work Phone: 01-17-2022 10:37-0400 Heart rate 47 /min Dr. Ronni Sen Work Phone: [facility] Work Phone: 01-17-2022 10:37-0400 Respiratory rate 14 /min Dr. Ronni Sen Work Phone: [facility] Work Phone: 01-17-2022 10:37-0400 SaO2% (BldA) [Mass fraction] 96 % Dr. Ronni Sen Work Phone: [facility] Work Phone: 01-17-2022 10:37-0400 Systolic blood pressure 108 mm[Hg] Dr. Ronni Sen Work Phone: [facility] Work Phone: 10-25-2021 13:17-0500 Body mass index (BMI) [Ratio] 16.6 kg/m2 Dr. Ronni Sen Work Phone: [facility] Work Phone: 10-25-2021 13:17-0500 Body temperature 96.6 [degF] Dr. Ronni Sen Work Phone: [facility] Work Phone: 10-25-2021 13:17-0500 Body weight 48.[address] Ronni Sen Work Phone: [facility] Work Phone: 10-25-2021 13:17-0500 Diastolic blood pressure 60 mm[Hg] Dr. Ronni Sen Work Phone: [facility] Work Phone: 10-25-2021 13:17-0500 Heart rate 70 /min Dr. Ronni Sen Work Phone: [facility] Work Phone: 10-25-2021 13:17-0500 Respiratory rate 16 /min Dr. Ronni Sen Work Phone: [facility] Work Phone: 10-25-2021 13:17-0500 SaO2% (BldA) [Mass fraction] 98 % Dr. Ronni Sen Work Phone: [facility] Work Phone: 10-25-2021 13:17050 Systolic blood pressure 110 mm[Hg] Dr. Ronni Sen Work Phone: [facility] Work Phone: Encounters Encounter Date Encounter Type Care Provider Facility Start: 01-22-2025 End: 01-22-2025 ambulatory Ronni Sen Facility:[facility] Start: 01-20-2025 End: 01-20-2025 Emergency department patient visit Dr. Ronni Sen DO Work Phone: -Emergency Department Work Phone: Start: 12-05-2024 End: 12-05-[address] Goyo Díaz MD -[facility] Work Phone: Start: 12-05-2024 End: 12-05-2024 ambulatory Goyo Díaz Facility:[facility] Start: 10-08-2024 End: 10-08-[address] Ronni Johnson DO -[facility] Work Phone: Start: 10-08-2024 End: 10-08-2024 ambulatory Ronni Sen Facility:[facility] Start: 09-15-2024 End: 09-15-2024 ambulatory Goyo Díaz Facility:[facility] Start: 07-09-2024 End: 07-09-2024 ambulatory Ronni Sen Facility:[facility] Start: 07-09-2024 End: 07-09-2024 ambulatory Ronni Sen Facility:[facility] Start: 03-04-2024 End: 03-04-2024 ambulatory Ronni Sen Facility:[facility] Start: 03-04-2024 End: 03-04-2024 ambulatory Ronni Sen Facility:[facility] Start: 05-24-2023 End: 05-24-[address] Ronni Sen Work Phone: [facility] Work Phone: Start: 05-23-2023 Non-patient / Non-visit Dr. Parker Work Phone: [facility] Work Phone: Start: 05-21-2023 Non-patient / Non-visit Dr. Parker Work Phone: [facility] Start: 05-21-2023 End: 05-21-[address] Ronni Sen Work Phone: [facility] Work Phone: Start: 05-21-2023 End: 05-21-[address] [facility] Start: 04-30-2023 End: 04-30-[address] Ronni Sen Work Phone: [facility] Work Phone: Start: 03-07-2023 End: 03-07-[address] Ronni Sen Work Phone: [facility] Work Phone: Start: 03-07-2023 End: 03-07-[address] Ronni Sen Work Phone: [facility] Work Phone: Start: 02-14-2023 End: 02-14-[address] Ronni Sen Work Phone: [facility] Work Phone: Start: 01-10-2023 End: 01-10-[address] Ronni Sen Work Phone: [facility] Work Phone: Start: 12-05-2022 End: 12-05-[address] Ronni Sen Work Phone: [facility] Work Phone: Start: 12-05-2022 End: 12-05-[address] Ronni Sen Work Phone: [facility] Start: 10-25-2022 End: 10-25-[address] Ronni Sen Work Phone: [facility] Start: 10-25-2022 End: 10-25-[address] Ronni Sen Work Phone: [facility] Start: 09-21-2022 End: 09-21-[address] Ronni Sen Work Phone: [facility] Start: 09-05-2022 End: 09-05-[address] Ronni Sen Work Phone: [facility] Work Phone: Start: 09-05-2022 End: 09-05-[address] Ronni Sen Work Phone: [facility] Start: 08-15-2022 End: 08-15-[address] Ronni Sen Work Phone: [facility] Start: 07-14-2022 End: 07-14-[address] Ronni Sen Work Phone: [facility] Start: 06-01-2022 End: 06-01-[address] Ronni Sen Work Phone: [facility] Start: 01-17-2022 End: 01-17-[address] Ronni Sen Work Phone: [facility] Start: 10-25-2021 End: 10-25-[address] Ronni Sen Work Phone: [facility] Start: 10-01-2021 End: 10-01-2021 Emergency department patient visit Dr. Ronni Sen Work Phone: [facility] Start: 05-16-2018 End: 05-17-2018 Patient encounter LUCY WRIGHT [facility] Start: 05-16-2018 End: 05-17-2018 Patient encounter LUCY WRIGHT Facility:[facility] Start: 02-20-2018 End: 02-21-2018 Patient encounter LUCY WRIGHT Facility:[facility] Procedures Date Procedure Procedure Detail Performing Clinician Start: 01-20-2025 X-ray of chest, PA a nd lateral views Dr. Ronni Sen DO Work Phone: Start: 01-20-2025 D-dimer assay, quantitative Dr. Ronni Sen DO Work Phone: Comment on above: D-Dimer ELEVATED (>0 .49): Additional studies and clinicalassessments are indicated to conclude diagnosis of:Deep Vein Thrombosis (DVT) or Pulmonary Embolism (PE)CRITICAL VALUE CALLED TO Cornelius VIRGEN01/20/25 1318 Gayatri Rogers.RESULTS READ BACK BY SAME. Start: 01-20-[address] Ronni Sen DO Work Phone: Start: 12-05-2024 Evaluation of diagno stic study results Dr. Ronni Sen DO Work Phone: Start: 09-05-[address] Ronni Sen Work Phone: Plan of Treatment Date Care Activity Detail Author Start: 01-20-2025 End: 01-20-2025 [facility] Start: 01-20-2025 [facility] Start: 08-15-2022 Patient referral [place] Work Phone: Patient Education ED CHF Left Si de ED Dyspnea [facility] Work Phone: Patient referral [facility] Work Phone: Troponin T.cardiac [Mass/volume] in Serum or Plasma by High sensitivity method [facility] Payers Date Payer Category Payer Self-pay [id number] 2023 Medicare [id number] 2023 Unknown [id number] 2018 Medicare [id number] Unknown [id number] Unknown [id number] 2.16.8 [id number] Unknown [id number] 2.16.8 [id number] Unknown [id number] 2.16.8 [id number] Unknown [id number] 2.16.8 [id number] Unknown [id number] 2.16.8 [id number] Unknown [id number] 2.16.8 [id number] Unknown [id number] 2.16.8 [id number] Unknown [id number] 2.16.8 [id number] Unknown [id number] 2.16.8 [id number] Unknown [id number] 2.16.8 [id number] Social History Date Type Detail Facility Start: 01-17-2022 End: 05-24-2023 Tobacco smoking status INIS Unknown if ever smoked [facility] Start: 07-28-2019 None [facility] Start: 07-28-2019 Spouse/ Signif icant Other [facility] Start: 07-28-2019 Non-smoker [facility] Start: 1940 Sex Assigned At Female [facility] Start: 01-20-2025 Tobacco smoking status NHIS Never smoked tobacco (finding) [facility] Clinical Notes 09-28-2021 to 01-20-2025 Note Date & Type Note Facility 01-20-2025 Discharge summary [facility] 01-20-2025 Radiology Diagnostic study note [facility] Imaging Services [address] [place] [address] Chest PA and Lateral MR#: [id number] Acct: [id number] Name: MARIBEL SIMPSON Rep #: [id number] : 1940 F 84 From: Sony Araujo MD PCP: Dr. Ronni Sen DO Status: RE G ER Study:Chest PA and Lateral Date of Exam: 01/20/25 Exam# [id number] Ordering Dr: Geovany Elena DO PROCEDURE: CHEST PA AND LATERAL 01/20/2025 REASON FOR EXAM: SOB TECHNIQUE: Frontal and lateral views of the chest. COMPARISON: None FINDINGS: Hardware: EKG electrodes are seen. Heart: Heart size upper limits of normal. Mediastinum: Unremarkable Lungs: Small bilateral pleural effusions right greater than left with bibasilar atelectasis and/or infiltration worse on the right side. Vascular congestion. Bones: Degenerative changes are identified within the thoracic spine. RAD/Chest PA and Lateral IMPRESSION: Vascular congestion. Small bilateral pleural effusions with bibasilar infiltration and/or atelectasisworse on the right side. Reading Location: [facility]--1 CC: Dr. Laverne Elena DO; Dr. 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 Ronni Sen, DO Status:RE G ER Location: ED HPI History of Present Illness Chief Complaint: Shortness of Breath Informant: patient and family Narrative Narrative: Patient is an 84-year-old female with history of persistent atrial fibrillation (not on any anticoagulation), heart failure with preserved ejection fraction, mitral valve insufficiency, malnutrition, pulmonary hypertension and hypothyroidism presenting with shortness of breath and right sided chest discomfort. She denies any falls or injuries. She states she has been more short of breath has progressed over the past 1 to 2 weeks. Denies any leg swelling. Notes that she does intermittently have some left-sided chest pain when she bends down for the past 5 days. She she has had a mild cough that is only slightly productive. Denies any fever. Had the flu around [facility] but thatwas a month ago. Did recently go up on her Prozac from 10 mg to 20 mg on Sunday(4 days ago) is not sure if that is related. Has 52 been on Eliquis and digoxinfor A-fib but is no longer on any anticoagulation due to easy bleeding. Denies any history of DVT or PE. No other complaints or concerns reported at this time. Notes that she had a bad night last night and had a hard time breathing. Did receive Tylenol this morning which did help her right sided chest discomfort. [facility] Medical History (HFpEF) heart failure with preserved ejection fraction Vitamin B12 deficiency Chronic back pain Hip fracture Persistent atrial fibrillation Nonrheumatic mitral (valve) insufficiency Chronic systolic (congestive) heart failure Pleural effusion CAP (community acquired pneumonia) Sepsis Hypotension Nonrheumatic mitral (valve) prolapse Hypothyroidism History of basal cell carcinoma Anxiety and depression A-fib History of cataract Heart murmur GERD (gastroesophageal reflux disease) IBS (irritable bowel syndrome) History of hepatitis Hormone replacement therapy Home Medications ?Medication ?Instructions ?Recorded ?Last Taken ?Type multivitamin with minerals 1 tab PO DAILY supplement 0 02/24/19 07/24/19 History triamcinolone acetonide 0.1 % 1 applic topical DAILY # 15 grams 10/25/21 Unknown Rx topical cream psyllium husk 0.4 gram capsule 0.4 g PO DAILY 01/17/22 Unknown History (Daily Fiber) cholecalciferol (vitamin D3) 25 25 mcg PO DAILY Unknown History mcg (1,000 unit) tablet food supplemt, lactose-reduced 120 ml PO DAILY PRN sup p 04/30/23 Unknown History 0.08 gram-1.5 kcal/mL oral liquid ascorbic acid (vitamin C) 500 mg 250 mg PO DAILY 10/29 Unknown History tablet mecobalamin (vitamin B12) 500 mcg 500 mcg PO DAILY 05/27 Unknown History chewable tablet metoprolol tartrate 25 mg tablet 25 mg PO DAILY bp #90 tabs 05/07/24 Unknown Rx hydrocodone-acetaminophen 5-325mg 1 tab PO QHS PRN nayeli n 09/15/24 Unknown History 5mg-325mg furosemide 20 mg tablet 20 mg PO DAILY #90 tabs 01/25 Unknown Rx ibuprofen 200 mg tablet 200 mg PO DAILY PRN fever or pain 10/08/24 Unknown History nystatin 100,000 unit/gram topical 1 applic topical DA KEN PRN skin 10/08/24 Unk nown History cream irritation quetiapine 100 mg tablet 50 mg (1/2 x 100 mg) PO QHS #60 10/08/24 Unknown Rx tabs fluoxetine 10 mg capsule 10 mg PO DAILY 01/20/25 Unkn own History furosemide 20 mg tablet (Lasix) 40 mg (2 x 20 mg) PO D AILY 5 days 01/20/25 Unknown Rx #10 tabs omeprazole 20 mg capsule,delayed 20 mg PO DAILY Unknown History release polyethylene glycol 3350 17 17 g PO DAILY PRN constipa tion 01/20/25 Unknown History gram/dose oral powder (ClearLax) zinc acetate 50 mg (zinc) capsule 50 mg PO DAILY 01/20 Unknown History Allergy/AdvReac Type Severity Reaction Status Date / Time milk AdvReac Mild gas Verified 10/08/24 11:07 wheat AdvReac Mild Abd Verified 10/08/24 11:07 cramps/diarrhea Family History Grandmother Colon cancer Grandfather Myocardial infarction Mother Heart disease Myocardial infarction Parkinsons Surgical History History of cholecystectomy History of hysterectomy Social History Smoking Status: Never smoker alcohol intake: never substance use type: other details: marijuana tea caffeine: Yes Type: tea what type of physical activity do you participate in: none ROS ROS ED Cardiovascular Cardiovascular: Reports chest pain Respiratory/Chest Respiratory/Chest: Reports cough and dyspnea Gastrointestinal Gastrointestinal: Denies abdominal pain, diarrhea, nausea or vomiting Genitourinary Genitourinary ED: Denies dysuria Musculoskeletal Musculoskeletal: Denies arthralgias or myalgias Integumentary Denies rash Neurologic Neurologic: Denies weakness Psychiatric Psychiatric: Reports anxiety Hematologic/Lymphatic Hematologic/Lymphatic: Denies easy bleeding or easy bruising EXAM Physical Exam Const Vital Signs: 01/20/25 11:48 01/20/25 12:09 01/20/25 12:50 Temperature 97.4 F L 97.6 F L Temperature Source Temporal Oral Pulse Rate 97 92 Respiratory Rate 16 26 H Respiratory Effort Normal Non-Labored Respiratory Depth Normal Respiratory Pattern Normal Blood Pressure 131/86 H 143/81 H Blood Pressure Mean 101 101 Pulse Ox 98 94 Oxygen Delivery Method Room Air Room Air Room Air 01/20/25 12:52 01/20/25 13:00 01/20/25 14:04 Temperature 97.8 F Temperature Source Oral Pulse Rate 92 100 Respiratory Rate 23 H 26 H Respiratory Effort Respiratory Depth Respiratory Pattern Blood Pressure 138/76 H 175/96 H Blood Pressure Mean 96 122 Pulse Ox 95 94 91 Oxygen Delivery Method Room Air Room Air Room Air 01/20/25 14:09 01/20/25 14:42 Temperature Temperature Source Pulse Rate 77 Respiratory Rate 22 H Respiratory Effort Respiratory Depth Respiratory Pattern Blood Pressure 143/94 H Blood Pressure Mean 110 Pulse Ox 94 93 Oxygen Delivery Method Room Air Room Air Positive well developed Constitutional Narrative: Thin General Appearance ED: well developed HEENT Reports moist mucous membranes Eyes PERRL Neck supple Neck Narrative: Mild JVD Chest Wall Chest Narrative: Mild tenderness to palpation of the right lower anterior and mid axillary chest wall Resp normal respiratory effort Resp Narrative: Mildly diminished breath sounds at the bases Auscultation: Negative for rhonchi or wheezes Cardio regular rate and regular rhythm GI non-tender and non-distended Auscultation: normoactive bowel sounds Palpation: soft; Negative for tender Extremity normal to inspection General Extremety ED: Negative for edema General Extremity: Negative for edema Neuro oriented x3 Sensorium / Orientation: alert Motor Exam: Negative for general weakness Psych mental status grossly normal Skin no wounds MDM MDM MDM Narrative Medical decision making narrative: Patient evaluated for chest pain and associated shortness of breath. Numerous subacute ongoing over the past week or so. Differential includes heart failure exacerbation, pneumonia, pleural effusion, ACS, PE possible referred GI symptoms. Patient is given Tylenol for pain as she did take a dose this morning with some improvement. After that patient did start having dry heaves. Is given a dose of Zofran. Okay CBC largely normal. D-dimer normal for age I do not think she requires further workup for PE. CMP largely unremarkable. She has very mild elevation of her AST which is nonspecific and otherwise has a normal bilirubin and alkaline phosphatase. Her proBNP is elevated at 3460 however I do not have a prior to compare to. Lipase is normal. Low suspicion for referred cardiac symptoms. TSH mildly elevated 8.9 which could be consistent with some mild hypothyroid. Qasim not think this correlates with her symptoms today and I do not think presentation is consistent with thyroid storm or myxedema coma. Most consistent with fluid overload. Chest x-ray viewed by myself and with radiology does show 5 consistent with pleural effusion and CHF. Patient ambulated her O2 saturation goes from 94-92. Discussed admission versus treatment at home. Patient feels comfortable increase her Lasix and providing treatment at home. I did discuss with Dr. Julian, cardiology on-call who is agreeable. Will increase her lasix 40 mg daily and have her follow-up with cardiology. Patient is made for an appointment this coming at 2 PM. Lab Data Attestation: I reviewed the patient's lab results. Labs: Laboratory Results - last 24 hr 01/20/25 12:38 WBC 7.4 RBC 4.29 Hgb 13.5 Hct 40.6 MCV 94.6 MCH 31.5 MCHC 33.3 RDW Std Deviation 46.8 H RDW Coeff of Karis 13.4 Plt Count 213 MPV 10.2 Immature Gran % (Auto) 0.400 Neut % (Auto) 68.5 Lymph % (Auto) 20.3 [place] % (Auto) 8.5 Eos % (Auto) 1.4 Baso % (Auto) 0.9 Absolute Neuts (auto) 5.1 Absolute Lymphs (auto) 1.50 Nucleated RBC % 0 D-Dimer Quant (PE/DVT) 0.63 H* Sodium 135 Potassium 4.5 Chloride 98 Carbon Dioxide 24.3 Anion Gap 12 BUN 20 H Creatinine 0.76 Estim Creat Clear Calc 43.40 L Est GFR (MDRD) Non-Af 78 BUN/Creatinine Ratio 26.3 H Glucose 96 Calcium 9.5 Total Bilirubin 0.78 AST 57 H ALT 31 Alkaline Phosphatase 73 Troponin T High Sens 12 NT pro BNP II 3460 H Total Protein 7.2 Albumin 4.2 Globulin 3.0 Albumin/Globulin Ratio 1.4 Lipase 12 L TSH 8.900 H Radiography Chest X-Ray - ED: 2 View, Read by ED Physician, Read by Radiologist, Chronic Changes and CHF Diagnostic Testing: Clinical Impression(s) from Imaging Studies Chest X-Ray 01/20/25 14:11 IMPRESSION: Vascular congestion. Small bilateral pleural effusions with bibasilar infiltration and/or atelectasisworse on the right side. Reading Location: [place] [address] Rhythm Strip Rhythm Strip: A-fib Rate: 93 Ectopy: None EKG Initial EKG: Attestation: I personally reviewed and interpreted this EKG as follows: Interpretation: Atrial Fibrillation Comments: Atrial fibrillation rate of 93 bpm Normal axis Normal intervals Normal ST segments Compared to prior EKG on 12/05/2024?no significant change Prior EKG tracings: available for review Prior: Unchanged Management Discussion w/another healthcare provider: Bundle Breaker (cardiology ) Discharge Plan Triage Chief Complaint: Shortness of Breath ED Provider: Laverne Elena Dx/Rx/DC Orders Clinical Impression: (HFpEF) heart failure with preserved ejection fraction, Dyspnea Instructions: ED CHF Left Side, ED Dyspnea Prescriptions: New furosemide [Lasix] 20 mg tablet 40 mg PO DAILY 5 Days Qty: 10 0RF No Action cholecalciferol (vitamin D3) 25 mcg (1,000 unit) tablet 25 mcg PO DAILY ascorbic acid (vitamin C) 500 mg tablet 250 mg PO DAILY triamcinolone acetonide 0.1 % cream 1 applic topical DAILY Qty: 15 0RF Patient Comments: NOT SURE OF THIS MEDICATION psyllium husk [Daily Fiber] 0.4 gram capsule 0.4 g PO DAILY mecobalamin (vitamin B12) 500 mcg tablet,chewable 500 mcg PO DAILY nystatin 100,000 unit/gram cream 1 applic topical DAILY PRN (Reason: skin irritation) ibuprofen 200 mg tablet 200 mg PO DAILY PRN (Reason: fever or pain) quetiapine 100 mg tablet 50 mg PO QHS Qty: 60 1RF furosemide 20 mg tablet 20 mg PO DAILY Qty: 90 3RF hydrocodone-acetaminophen 5-325 mg tablet 1 tab PO QHS PRN (Reason: pain) multivitamin with minerals 1 EACH tablet 1 tab PO DAILY food supplemt, lactose-reduced 0.08 gram-1.5 kcal/mL liquid 120 ml PO DAILY PRN (Reason: supp) polyethylene glycol 3350 [ClearLax] 17 gram/dose powder 17 g PO DAILY PRN (Reason: constipation) zinc acetate 50 mg (zinc) capsule 50 mg PO DAILY fluoxetine 10 mg capsule 10 mg PO DAILY omeprazole 20 mg capsule,delayed release(DR/EC) 20 mg PO DAILY metoprolol tartrate 25 mg tablet 25 mg PO DAILY Qty: 90 3RF Primary Care Provider: Ronni Sen Referrals: Jasper Julian MD [Med Staff - Active Staff] - 01/22/25 2:00 pm Ronni Sen DO [Primary Care Provider] - Activity Restrictions/Additional Instructions: Please return to the ER if you feel you are worsening. Follow-up with cardiology on at 2 PM as we discussed. Take a total of 40 mg of Lasix daily with your first dose this evening. You do not need to take your daily 20 mg also. Print Language: Romanian Disposition Disposition: Home, Self Care What to do if you have Problems For any increased pain, shortness of breath, bleeding, nausea or vomiting, chestpain, or any unexpected problems, contact your Primary Care Provider. Call [facility] ([phone]) or report to the closest Emergency Room. Call 911 if necessary. 01/20/25 1506 <Electronically signed by Laverne Elena DO> Cosigner Signature (if applicable): CC: Dr. Ronni Sen DO ~ Signed [facility] Work Phone: 1(193) 909-770202-05-2025 Evaluation note* Diagnosis Onset Date Resolution Status Admit Date (HFpEF) heart failure with preserved ejection fraction acute Febr uary 2024 10:58am Physical debility acute Februar y 2024 10:58am Anxiety and depression chronic Fe bruary 2024 10:58am Chronic dermatitis chronic Februa ry 2024 10:58am Hypothyroidism chronic October 082024 10:58am Persistent atrial fibrillation chron ic October 08, 2024 10:58am Persistent atrial fibrillation chron ic December 05, 2024 11:07am [facility] Work Phone: 1(153) 779-637101-26-2022 NoteHNO ID: [id number] Author: Kris Child MD Service: ? Author [...] with all of its relevant components. Kris Child, [facility]* Diagnosis Onset Date Resolution Status Seborrheic keratoses acute Anxiety and depression chron ic Poor appetite chronic Hyponatremia acute Anxiety and depression chron ic Chronic systolic (congestive) heart failure chronic Hypothyroidism chronic [facility] Work Phone: Evaluation note* Diagnosis Onset Date Resolution Status Vitamin B12 deficiency acute Vitamin B12 deficiency acute Mass of buttock acute Vitamin B12 deficiency acute Chronic dermatitis chronic Osteoarthritis of knee chron [facility] Work Phone: Evaluation note* Diagnosis Onset Date Resolution Status Mass of buttock acute Vitamin B12 deficiency acute Chronic dermatitis chronic Osteoarthritis of knee chron ic Chronic systolic (congestive) heart failure chronic Nonrheumatic mitral (valve) insufficiency chronic Persistent atrial fibrillation chronic Pulmonary hypertension chron ic Cerumen impaction acute UTI (urinary tract infection) acute Vitamin B12 deficiency acute Anxiety and depression chron ic Hypothyroidism chronic Persistent atrial fibrillation chronic [facility] Work Phone: Evaluation note* Diagnosis Onset Date Resolution Status Cerumen impaction acute UTI (urinary tract infection) acute Vitamin B12 deficiency acute Anxiety and depression chron ic Hypothyroidism chronic Persistent atrial fibrillation chronic Hyponatremia acute Vitamin B12 deficiency acute Anxiety and depression chron ic Hypothyroidism chronic Nonrheumatic mitral (valve) prolapse chronic Persistent atrial fibrillation chronic Poor appetite chronic [facility] Work Phone: Evaluation note* Diagnosis Onset Date Resolution Status Hyponatremia acute Vitamin B12 deficiency acute Anxiety and depression chron ic Hypothyroidism chronic Nonrheumatic mitral (valve) prolapse chronic Persistent atrial fibrillation chronic Poor appetite chronic Chronic systolic (congestive) heart failure chronic Nonrheumatic mitral (valve) insufficiency chronic Persistent atrial fibrillation chronic Pulmonary hypertension chron [facility] Work Phone: Hospital Discharge instructions Additional Instructions Please return to the ER if you feel you are worsening. Follow-up with cardiology on at 2 PM as we discussed. Take a total of 40 mg of Lasix daily with your first dose this evening. You do not need to take your daily 20 mg also.[facility] Work Phone: Reason for referral (narrative)No reason for referral information availableWCleveland [facility] Work Phone: Summary Purpose Family History No Family History Records Found Relationship Condition Age at Onset Recorded Date/T bella grandmother Malignant neoplasm of colon Unknown grandfather Myocardial infarction Unknown mother Cardiac disease Unknown Myocardial infarction Unknown Parkinson's disease Unknown Advance Directives No Advanced Directives Records Found Advance Directive Response Recorded Date/ Time Living Will Yes July 30 5:11pm Power of Casting Chipper Yes July 30, 2019 5:11pm Advance Directive Response Recorded Date/ Time Living Will Yes June 01, 2022 12:14pm Power of Casting Chipper Yes May 12:14pm Advance Directive Response Recorded Date/ Time Living Will Yes June 01, 2022 1:14pm Power of Casting Chipper Yes May 1:14pm Advance Directive Response Recorded Date/ Time Do you have a Healthcare Power of Casting Chipper? 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 Cataract extraction withIOL right eye 2. 3. 4. 5. Surgeon: Fab Resident/Fellow/Other Silver Designer: None Estimated Blood Loss (mL): none Specimen: [...] inserted between the (more content not included)... Chief Complaint and Reason for Visit Chief Complaint 6 M FU 3 M FU Reason for Visit Seborrheic keratoses Anxiety and depression Poor appetite Hyponatremia Anxiety and depression Chronic systolic (congestive) heart failure Hypothyroidism Chief Complaint B12 b12 shot 3 m fu RT BUTTOCK MASS Reason for Visit Vitamin B12 deficien cy Vitamin B12 deficiency Mass of buttock Vitamin B12 deficiency Chronic dermatitis Osteoarthritis of knee Chief Complaint 3 m fu RT BUTTOCK MASS B12 1 Y FU B12 3 M FU Reason for Visit Mass of buttock Vitamin B12 deficiency Chronic dermatitis Osteoarthritis of knee Chronic systolic (congestive) heart failure Nonrheumatic mitral (valve) insufficiency Persistent atrial fibrillation Pulmonary hypertension Cerumen impaction UTI (urinary tract infection) Vitamin B12 deficiency Anxiety and depression Hypothyroidism Persistent atrial fibrillation Chief Complaint 3 M FU B12- UTI Check b12 3 M FU Reason for Visit Cerumen impaction UTI (urinary tract infection) Vitamin B12 deficiency Anxiety and depression Hypothyroidism Persistent atrial fibrillation Hyponatremia Vitamin B12 deficiency Anxiety and depression Hypothyroidism Nonrheumatic mitral (valve) prolapse Persistent atrial fibrillation Poor appetite Chief Complaint b12 3 M FU 6 M FU Nonrheumatic mitral (valve) prolapse Amb Documentation B12 Reason for Visit Hyponatremia Vitamin B12 deficiency Anxiety and depression Hypothyroidism Nonrheumatic mitral (valve) prolapse Persistent atrial fibrillation Poor appetite Chronic systolic (congestive) heart failure Nonrheumatic mitral (valve) insufficiency Persistent atrial fibrillation Pulmonary hypertension Chief Complaint Admit Date PHYSICAL FOR ASSISTED LIVING October 10:58am 15 BP Check December 05, 2024 11:0 7am SOB January 20, 2025 11:48 am Reason for Visit Admit Date (HFpEF) heart failure with preserved eje ction fraction October 08, 2024 10:58am Physical debility October 08, 2024 1 0:58am Anxiety and depression October 08 10:58am Chronic dermatitis October 08, 2024 1 0:58am Hypothyroidism October 08, 2024 1 0:58am Persistent atrial fibrillation October 08, 2024 10:58am Persistent atrial fibrillation December 11:07am Additional Source Comments INFORMATION SOURCE (unrecogn ized section and content) DATE CREATED AUTHOR 06/12/2018 [facility] ([place]) DATE CREATED AUTHOR AUTHOR'S ORGANIZ ATION 06/23/2019 [facility] DATE CREATED AUTHOR AUTHOR'S ORGANIZ ATION 10/26/2021 [facility] DATE CREATED AUTHOR AUTHOR'S ORGANIZ ATION 01/28/2025 [facility] Goals (unrecognized section and content) Goals may be documented in a n alternate sectionGoals may be documented in an alternate sectionGoals may be documented in an alternate sectionGoals may be documented in an alternate sectionGoals may be documented in an alternate sectionGoals may be documented in an alternate section Care Teams (unrecognized sec tion and content) Team Status: Active Member Role Status Dates Dr. Ronni Sen , DO Family Provider Active Dr. Ronni Sen , DO Primary Care Provider Active Team Status: Inactive Member Role Status Dates Dr. Ronni Sen , DO Primary Care Pr ovider, Attending Provider, Referring Provider Active Team Status: Inactive Member Role Status Dates Dr. Ronni Sen , DO Primary Care Provider, Referr ing Provider Active ARCHIE Christopher Attending Provider Active Team Status: Inactive Member Role Status Dates Dr. Ronni Sen , DO Primary Care Provider, Referr ing Provider Active Dr. Leonidas Pereira MD Attending Provider Active Team Status: Inactive Member Role Status Dates Dr. Ronni Sen DO Primary Care Provider, Referr ing Provider Active Soraya Bagley PA, PA Attending Provider Active Team Status: Active Member Role Status Dates Dr. Ronni Sen DO Primary Care Provider Active Dr. Jasper Julian MD Attending Provider Active Team Status: Active Member Role Status Dates Dr. Ronni Sen DO Primary Care Provider Active Julio Kenny EMERGENCY ROOM TECHNICIAN, EMERGENCY ROOM TECHNICIAN-C Attending Provider Active Team Status: Inactive Member Role Status Dates Dr. Ronni Sen DO Primary Care Provider Active Soraya Bagley PA, PA Attending Provider, Referr ing Provider Active Team Status: Active Member Role Status Dates Dr. Ronni Sen DO Primary Care Provider Active Team Status: Inactive Member Role Status Dates Dr. Ronni Sen DO Primary Care Provider Active Start: October 08, 2024 End: October 08, 2024 Dr. Ronni Sen DO Attending Provider Active Start: October 08, 2024 End: October 08, 2024 Dr. Ronni Sen DO Referring Provider Active Start: October 08, 2024 End: October 08, 2024 Team Status: Inactive Member Role Status Dates Dr. Ronni Sen DO Primary Care Provider Active Start: December 05, 2024 End: December 05, 2024 Dr. Ronni Sen DO Referring Provider Active Start: December 05, 2024 End: December 05, 2024 Dr. Goyo Díaz MD Attending Provider Active Start: December 05, 2024 End: December 05, 2024 Team Status: Inactive Member Role Status Dates Dr. Ronni Sen DO Primary Care Provider Active Start: January 20, 2025 End: January 20, 2025 Dr. Laverne Elena DO Emergency Provider Active Start: January 20, 2025 End: January 20, 2025 FOR RECORDS PERTAINING TO PATIENTS WHO ARE [...] BE BASED ON THE PRIMARY CLINICAL RECORDS. [facility]. provides no warranty or guarantee of the accuracy or completeness of information in this document.
--- NOTE | 2025-03-03 13:57 | ECHOD_ITS ---
Reason For Study Reason For Study: MVP Procedure This was a 2D Doppler, Color Flow transthoracic echocardiogram. Exam performed in department. Left Ventricle Normal LV size. Left ventricular systolic function is normal. The left ventricular ejection fraction is 60 %. No regional wall motion abnormalities noted. Right Ventricle Normal RV size. Normal systolic function. Atria The left atrium is severely enlarged. Normal right atrium. Mitral Valve There is mild mitral annular calcification. Anterior leaflet mitral valve prolapse. Moderate (2+) eccentric mitral valve insufficiency. Tricuspid Valve Normal tricuspid valve. Mild (1+) tricuspid valve insufficiency. Pulmonary artery systolic pressure is 46 mmHg. Aortic Valve Trisinus/trileaflet aortic valve. Pulmonic Valve Normal pulmonic valve. Great Vessels Normal aortic root. The pulmonary artery is normal size. Inferior vena cava collapse with sniff. Pericardium/Pleural No pericardial effusion. MMode/2D Measurements & Calculations LVIDd: 4.8 cm IVSd: 0.81 cm LVOT diam: 1.8 cm LVIDs: 3.0 cm LVPWd: 0.93 cm LVOT area: 2.4 cm2 RVDd: 2.6 cm FS: 37.9 % asc Aorta Diam: 3.1 cm LAV(MOD-bp): 145.6 ml LVAd ap4: 22.7 cm2 LAV(MOD-bp) Indexed: 93.2 ml/m2 LVLd ap4: 7.0 cm LAV(MOD-sp2): 163.2 ml EDV(MOD-sp4): 61.7 ml LAV(MOD-sp4): 117.5 ml EDV(sp4-el): 62.7 ml LVAs ap4: 13.4 cm2 LVLs ap4: 6.4 cm ESV(MOD-sp4): 25.3 ml ESV(sp4-el): 23.8 ml EF(MOD-sp4): 59.0 % EF(sp4-el): 62.1 % LVAd ap2: 24.2 cm2 SV(MOD-sp4): 36.3 ml SV(MOD-sp2): 42.4 ml LVLd ap2: 7.4 cm SI(MOD-sp4): 23.3 ml/m2 SI(MOD-sp2): 27.1 ml/m2 EDV(MOD-sp2): 65.7 ml EDV(sp2-el): 66.6 ml LVAs ap2: 12.4 cm2 LVLs ap2: 5.9 cm ESV(MOD-sp2): 23.3 ml ESV(sp2-el): 22.0 ml EF(MOD-sp2): 64.6 % SV(sp4-el): 38.9 ml LA dimension(2D): 5.4 cm LA A4 area: 34.2 cm2 RA A4 area: 10.8 cm2 TAPSE: 1.2 cm Time Measurements MV dec time: 0.19 sec Doppler Measurements & Calculations MV E max natacha: 175.5 cm/sec MV V2 max: 202.8 cm/sec Ao V2 max: 111.9 cm/sec MV max P.5 mmHg Ao max P.0 mmHg MV V2 mean: 126.9 cm/sec Ao V2 mean: 72.2 cm/sec MV mean P.5 mmHg Ao mean P.5 mmHg MV V2 VTI: 38.9 cm Ao V2 VTI: 20.3 cm AV (velocity ratio): 0.62 MVA(VTI): 0.78 cm2 OSCAR(I,D): 1.5 cm2 OSCAR(V,D): 1.4 cm2 LV V1 max: 65.4 cm/sec SV(LVOT): 30.6 ml PA V2 max: 56.3 cm/sec LV V1 max P.7 mmHg LV V1 mean P.92 mmHg LV V1 mean: 44.2 cm/sec LV V1 VTI: 12.5 cm TR max natacha: 324.8 cm/sec TR max P.2 mmHg ECHO/Echo Complete Interpretation Summary Normal LV size. Left ventricular systolic function is normal. The left ventricular ejection fraction is 60 %. Anterior leaflet mitral valve prolapse. Moderate (2+) eccentric mitral valve insufficiency. The left atrium is severely enlarged. Ordering Physician: Soraya Bagley Referring Physician: Soraya Bagley Performed By: Ramona Troo RDCS
== END | disposition home or self-care (01) ==
PROVIDERS: PCP Family Medicine; Referring Provider Physician Assistant Medical; Visit Provider Physician Assistant Medical
DX: I34.1 Nonrheumatic mitral (valve) prolapse (principal)
CPT/HCPCS: 93306

== ENCOUNTER → 2025-04-22 | Outpatient (CLI) | payer MEDICARE, BC, SELFPAY ==
--- NOTE | 2025-04-22 10:33 | RAD_ITS ---
PROCEDURE: CHEST PA AND LATERAL 04/22/2025 REASON FOR EXAM: PLEURAL EFFUSION TECHNIQUE: CHEST PA AND LATERAL COMPARISON: January 20, 2025, April 24, 2019 FINDINGS: The image is slightly overpenetrated. Hardware: None Heart: Top-normal size. Mediastinum: Enlargement of the main pulmonary arteries suggestive of pulmonary arterial hypertension Lungs: Bibasilar atelectasis and small effusions. This is stable to slightly decreased. Bones: Degenerative changes are identified within the thoracic spine. RAD/Chest PA and Lateral IMPRESSION: Bibasilar atelectasis and small effusions. Stable to slightly decreased. Top-normal heart size. Likely pulmonary arterial hypertension. Reading Location: [id number]
== END | disposition home or self-care (01) ==
LOC: RAD 10:30
PROVIDERS: PCP Family Medicine; Referring Provider Physician Assistant Medical; Visit Provider Physician Assistant Medical
DX: J90 Pleural effusion, not elsewhere classified (principal); I50.31 Acute diastolic (congestive) heart failure; I27.20 Pulmonary hypertension, unspecified; I48.19 Other persistent atrial fibrillation; I34.0 Nonrheumatic mitral (valve) insufficiency
CPT/HCPCS: 71046

== ENCOUNTER 2025-06-19 17:58 | Inpatient (IN) | payer MEDICARE, BC, SELFPAY ==
[2025-06-19 17:59] VITALS: BP 126/77; PULSE 82; RESP 18; TEMP 36.6; O2SAT 97
[2025-06-19 19:58] VITALS: BP 138/98; PULSE 95; RESP 18; O2SAT 97
[2025-06-19 20:18] VITALS: BMI 17.3
[2025-06-19 20:28] VITALS: RESP 20; O2SAT 96
[2025-06-19 20:55] LABS: Hematocrit 40.3 % (37-47); Hemoglobin 13.4 g/dL (12.0-15.0); Immature Granulocytes Count 0.030 X10^3/uL (0.0-0.0); Mean Corp Hgb Conc 33.3 g/dL (32-36); Mean Corpuscular Volume 93.1 fL (81-99); Mean Platelet Vol. 10.8 fl (6.2-12.0); NRBC Flagged by Analyzer 0 % (0-5); Platelet Count 250 K/mm3 (150-450); RBC Distribution Width CV 14.3 % (11.6-14.6); RBC Distribution Width SD 48.0 fl (35.1-43.9); Red Blood Count 4.33 M/mm3 (4.2-5.4); White Blood Count 6.9 K/mm3 (4.4-11.0)
[2025-06-19 21:00] VITALS: BP 146/94; PULSE 94; RESP 18; O2SAT 94
--- OUTSIDE RECORDS SUMMARY | 2025-06-19 21:13 | XMS RPT_ITS | CCD ---
Author Organization [facility] Care Team Providers Care Band Attacher Name Role Phone FISH, LUCY Unavailable Unavailable BROWN, RONNI Unavailable Unavailable FISH, LUCY Unavailable Unavailable LETTY, RONNI Unavailable Unavailable FISH, LUCY Unavailable Unavailable LETTY, RONNI Unavailable Unavailable Dr. Ronni Sen Primary Care Provider [phone] Dr. Ronni Sen Attending Provider [phone] Ronni Sen Referring Provider [phone] Dr. Ronni Sen Primary Care Provider [phone] Dr. Ronni Sen Referring Provider ARCHIE Mckoy Attending Provider Unavailab Dr. Ronni Flores Attending Provider [phone] Ronni Sen Primary Care Provider [phone] Dr. Ronni Sen Attending Provider [phone] Dr. Ronni Sen Referring Provider [phone] Leonidas Pereira Attending Provider [phone] Dr. Ronni Sen Primary Care Provider [phone] Dr. Ronni Sen Attending Provider [phone] Ronni Sen Referring Provider [phone] Ronni Sen Primary Care Provider [phone] Dr. Ronni Sen Attending Provider Dr. Ronni Sen Referring Provider Yudi ALMANZA, PA Soraya Mcclain Attending Provider Dr. Jasper Julian Attending Provider Roof I&C TECHNICIAN, I&C TECHNICIAN-C Julio Sanabria Attending Provider Letty GONZALEZ, Dr. Ronni Johnson Primary Care Provider Letty GONZALEZ, Dr. Ronni Johnson Attending Provider [phone] Letty GONZALEZ, Dr. Ronni Johnson Referring Provider [phone] Dr. Goyo Díaz MD Attending Provider Dr. Laverne Elena DO Emergency Provider [phone] Letty GONZALEZ, Dr. Ronni Johnson Primary Care Provider [phone] Letty GONZALEZ, Dr. Ronni Johnson Referring Provider [phone] Dr. Laverne Elena DO Attending Provider Soraya Dickson Attending Provider [phone] Soraya Dickson Referring Provider [phone] Dr. Jasper Julian MD Attending Provider [phone] Letty GONZALEZ, Dr. Ronni Johnson Primary Care Provider [phone] Letty GONZALEZ, Dr. Ronni Johnson Referring Provider [phone] Letty GONZALEZ, Dr. Ronni Johnson Attending Provider [phone] UMANG VICTORIA MD Attending Unavailable UMANG VICTORIA MD Primary Care Unavailable UMANG VICTORIA MD Admitting Unavailable Dr. Ronni Sen DO Primary Care Physician Soraya Dickson Attending Physician [phone] Dr. Jasper Julian MD Attending Physician Dr. Ronni Sen DO Referring Provider [phone] Dr. Ronni Sen DO Attending Physician [phone] BrownGerardoRonni R Attending Unavailable Brown, Ronni R Primary Care Unavailable Brown, Ronni R Referring Unavailable Brown, Ronni R Primary Care Unavailable Brown, Ronni R Referring Unavailable Goyo Díaz Attending Unavailable BrownRonni R Attending Unavailable Brown, Ronni R Primary Care Unavailable Brown, Ronni R Referring Unavailable Brown, Ronni R Primary Care Unavailable Soraya Dickson Attending Unavail able Brown, Ronni R Referring Unavailable Brown, Ronni R Referring Unavailable Brown, Ronni R Attending Unavailable Brown, Ronni R Primary Care Unavailable Jasper Julian Attending Unavailable Brown, Ronni R Primary Care Unavailable Soraya Dickson Attending Unavail able Brown, Ronni R Primary Care Unavailable Soraya Dickson Referring Unavail able Brown, Ronni R Primary Care Unavailable Soraya Dickson Referring Unavail able Soraya Dickson Attending Unavail able Brown, Ronni R Primary Care Unavailable Laverne Elena Attending Unavailable Brown, Ronni R Primary Care Unavailable Brown, Ronni R Referring Unavailable Soraya Dickson Attending Unavail able Soraya Dickson Attending Unavail able Brown, Ronni R Primary Care Unavailable Brown, Ronni R Referring Unavailable Soraya Dickson Attending Unavail able Brown, Ronni R Primary Care Unavailable Brown, Ronni R Referring Unavailable Brown, Ronni R Attending Unavailable Brown, Ronni R Primary Care Unavailable Brown, Ronni R Referring Unavailable Brown, Ronni R Primary Care Unavailable Brown, Ronni R Referring Unavailable Goyo Díaz Attending Unavailable Brown, Ronni R Primary Care Unavailable Brown, Ronni R Referring Unavailable Goyo Díaz Attending Unavailable Brown, Ronni R Attending Unavailable Brown, Ronni R Primary Care Unavailable Brown, Ronni R Referring Unavailable Allergies Allergy Classification Reported Allergen(s) Allergy Type Date of Onset Reaction(s) Facility (7 sources) cow milk allergenic extract Drug Allergy 5 [facility] (7 sources) Wheat preparation Drug Allergy 5 Abd cramps/diarrhea [facility] (1 source) Milk Drug allergy (disorder) [address] [place] [address] Repository (1 source) Wheat preparation Drug Allergy 5 [facility] Repository Medications Current Medications Medication Drug Class(es) Dates Sig (Normalized) Sig (Original) acetaminophen 325 mg / HYDROcodone bitartrate 5 mg oral tablet (20 sources) Opioid Agonist Start: 06-04-2025 Hydrocodone-Acetam inophen 5-325 mg tablet Active 1 {tbl} PO AT BEDTIME as needed for pain 0 June 04, 2025 12:00am Complies with drug therapy Start: 09-15-2024 End: 05-18-2025 Hydrocodone-Acetaminophen 5- 325 mg tablet Discontinued 1 {tbl} PO AT BEDTIME as needed for pain 10 10 0 May 08, 2025 May 17, 2025 12:00am May 18, 2025 12:07am Chronic back pain Dorsalgia, unspecified Other chronic pain Start: 10-29-2023 End: 05-15-2024 Hydrocodone-Acetaminophen 5- 325 mg tablet Discontinued 1 {tbl} PO AT BEDTIME as needed for pain 30 30 0 April 15, 2024 May 14, 2024 12:00am May 15, 2024 12:04am Seborrheic keratosis Other seborrheic keratosis Start: 09-11-2023 End: 10-21-2023 Hydrocodone-Acetaminophen 5- 325 mg tablet Discontinued 0.5 {tbl} PO AT BEDTIME as needed for pain 20 40 0 September 11, 2023 October 20, 2023 1:00am October 21, 2023 1:01am Osteoarthritis of knee Unilateral primary osteoarthritis, unspecified knee Start: 11-03-2020 End: 05-21-2021 Hydrocodone-Acetaminophen 5- 325 mg tablet Discontinued 0.5 {tbl} PO TWICE A DAY as needed for pain 20 30 0 April 21, 2021 May 20, 2021 12:00am May 21, 2021 12:01am Chronic back pain Dorsalgia, unspecified Other chronic pain Start: 11-03-2020 End: 05-21-2021 take 0.5 tablet by mouth twice daily Hydrocodone-Acetaminophen Discontinued 0 .5 TABLET PO TWICE A DAY 20 30 April 21, 2021 May 21, 2021 12:01am apixaban 2.5 mg oral tablet (20 sources) Factor Xa Inhibitor Start: 06-04-2025 take 1 tablet by mouth twice daily Apixaban 2.5 mg tablet Active 2.5 mg PO TWICE A DAY 60 June 04, 2025 10:48am blood thinner Take 1 tablet twice a day. Complies with drug therapy Start: 01-04-2022 End: 12-11-2023 take 1 tablet by mouth twice daily Apixaban 2.5 mg tablet Discontinued 2.5 mg PO TWICE A DAY 180 September 12, 2023 3:54pm December 11, 2023 11:09am blood thinner Take 1 tablet twice a day. Start: 01-04-2021 End: 01-04-2022 take 2.5 mg by mouth twice daily Apixaban 5 mg tablet Discontinued 2.5 mg PO TWICE A DAY 60 2 February 18, 2021 4:38pm January 04, 2022 8:19am blood thinner Start: 01-04-2021 End: 01-04-2022 take 2.5 mg by mouth twice daily Apixaban Discontinued 2.5 MG PO TWICE A DAY 60 February 18, 2021 4:38pm January 04, 2022 8:19am Start: 01-15-2019 End: 01-04-2021 take 1 tablet by mouth twice daily Apixaban 5 mg tablet Discontinued 5 mg PO TWICE A DAY 180 0 October 11, 2020 2:20pm January 04, 2021 11:45am blood thinner ascorbic acid 500 mg oral tablet (17 sources) Vitamin C Start: 10-29-2023 Ascorbic Acid (Vitamin C) 500 mg tablet Active 250 mg PO DAILY October 29, 2023 3:05pm Complies with drug therapy Start: 10-25-2022 End: 10-29-2023 take 1 tablet [...] ug PO DAILY March 13, 2022 12:00am Complies with drug therapy Start: 03-13-2022 End: 03-13-2022 take 1 tablet [...] 01, 2019 12:36pm March 13, 2022 11:47am vitamin Start: 07-25-2019 End: 10-01-2019 take 1 capsule by mouth once daily Cholecalciferol (Vitamin D3) 2,000 UNIT capsule Discontinued 2000 U PO DAILY July 25, 2019 1:00am October 01, 2019 12:40pm vitamin FLUoxetine 20 mg oral capsule (20 sources) Serotonin Reuptake Inhibitor Start: 01-22-2025 End: 04-22-2025 take 1 capsule by mouth once daily Fluoxetine (Prozac) 20 mg capsule Active 20 mg PO daily 90 April 22, 2025 11:41am Complies with drug therapy Start: 01-20-2025 End: 03-18-2025 take 1 capsule by mouth once daily Fluoxetine 10 mg capsule Discontinued 10 mg PO DAILY January 20, 2025 12:00am March 18, 2025 2:49pm Start: 01-14-2025 End: 01-20-2025 take 1 capsule [...] Supplemt, Lactose-Reduc ed 0.08 gram-1.5 kcal/mL liquid (14 sources) Start: 04-30-2023 Food Supplemt, Lactose-Reduced 0.08 gram-1.5 kcal/mL liquid Active 120 mL PO DAILY as needed for supp April 30, 2023 2:42pm Complies with drug therapy Start: 04-30-2023 Food Supplemt, Lactose-Reduced 0.08 gram-1.5 kcal/mL liquid Active 120 mL PO DAILY as needed for supp April 30, 2023 2:42pm Start: 03-13-2022 End: 04-30-2023 take 1 mL by mouth once daily Food Supplemt, Lactose-R educed 0.08 gram-1.5 kcal/mL liquid Discontinued 120 mL PO DAILY March 13, 2022 11:48am April 30, 2023 2:42pm supp Start: 03-13-2022 End: 04-30-2023 take 1 mL by mouth once daily Food Supplemt, Lactose-R educed 0.08 gram-1.5 kcal/mL liquid Discontinued 120 mL PO DAILY March 13, 2022 11:48am April 30, 2023 2:42pm furosemide 20 mg oral tablet (20 sources) Loop Diuretic Start: 06-04-2025 take 1 tablet by mouth twice daily Furosemide 20 mg tablet Active 20 mg PO TWICE A DAY 180 3 June 04, 2025 10:43am Complies with drug therapy Start: 06-04-2025 End: 06-04-2025 Furosemide 40 mg tablet Disc ontinued 20 mg PO TWICE A DAY June 04, 2025 10:41am June 04, 2025 10:43am Start: 04-22-2025 End: 06-04-2025 take 1 tablet by mouth once daily in the morning Furosemide 40 mg tablet Discontinued 40 mg PO EVERY MORNING 90 3 April 22, 2025 10:01am June 04, 2025 10:42am Start: 04-22-2025 End: 04-22-2025 take 1 tablet by mouth twice daily Furosemide 20 mg tablet Discontinued 20 mg PO TWICE A DAY April 22, 2025 9:38am April 22, 2025 10:02am Start: 01-20-2025 End: 01-22-2025 take 2 tablets by mouth once daily Furosemide 20 mg tablet Discontinued 40 mg PO DAILY January 22, 2025 1:47pm January 22, 2025 2:39pm Start: 03-04-2021 End: 04-22-2025 take 1 tablet by mouth once daily Furosemide 20 mg tablet Discontinued 20 mg PO DAILY 90 3 September 12, 2023 3:54pm July 09, 2024 12:35pm Start: 08-07-2019 End: 01-04-2021 take 1 tablet by mouth once daily Furosemide 20 mg tablet Discontinued 20 mg PO DAILY 90 0 October 29, 2019 9:31am January 04, 2021 12:17pm heart On Hold: low BP Start: 07-25-2019 End: 08-07-2019 take 1 tablet by mouth twice daily Furosemide (Lasix) 20 mg tablet Discontinued 20 mg PO TWICE A DAY July 25, 2019 1:00am August 07, 2019 12:35pm heart Start: 06-27-2019 End: 07-25-2019 take 1 tablet by mouth once daily Furosemide 40 mg tablet Discontinued 40 mg PO DAILY 30 June 27, 2019 11:58am July 25, 2019 10:42am Start: 05-07-2019 End: 06-27-2019 take 1 tablet by mouth twice daily Furosemide 40 mg tablet Discontinued 40 mg PO TWICE A DAY 30 May 07, 2019 10:03am June 27, 2019 [...] 20 mg PO TWICE A DAY 60 2 March 16, 2019 6:05pm March 21, 2019 11:30am Start: 02-27-2019 End: 03-16-2019 take 1 tablet by mouth twice daily Furosemide 40 MG tablet Discontinued 40 mg PO TWICE DAILY 60 0 February 27, 2019 12:00am March 16, 2019 6:06pm Start: 02-20-2019 End: 02-27-2019 take 1 tablet by mouth twice daily Furosemide 20 mg tablet Discontinued 20 mg PO TWICE A DAY 60 2 February 20, 2019 1:31pm February 27, 2019 3:03pm Start: 02-18-2019 End: 02-20-2019 take 1 tablet by mouth once daily Furosemide 20 mg tablet Discontinued 20 mg PO DAILY 10 0 February 18, 2019 12:00am February 20, 2019 1:32pm Start: 12-07-2018 End: 12-10-2018 take 1 tablet by mouth twice daily Furosemide 20 MG tablet Discontinued 20 mg PO BID@1000,1800 60 0 December 07, 2018 12:00am December 10, 2018 4:23pm ibuprofen 200 mg oral tablet (19 sources) Nonsteroidal Anti-inflammatory Drug Start: 10-08-2024 take 1 tablet by mouth once daily as needed for pain Ibuprofen 200 mg tablet Active 200 mg PO DAILY as needed for fever or pain October 08, 2024 1:00am Complies with drug therapy Start: 07-25-2019 End: 07-28-2019 take 1 tablet by mouth once daily as needed for pain Ibuprofen 200 MG tablet Discontinued 200 mg PO DAILY NEEDED as needed for Pain Score July 25, 2019 1:00am July 28, 2019 12:20pm magnesium chloride 598 mg delayed release oral tablet (5 sources) Start: 03-18-2025 take 1 tablet by mouth once daily Magnesium Chloride 64 mg tablet,delayed release (DR/EC) Active 64 mg PO daily March 18, 2025 12:00am Complies with drug therapy mecobalamin (6 sources) Start: 12-11-2023 take 1 tablet by mouth once daily Mecobalamin (Vitamin B12) 500 mcg tablet,chewable Active 500 ug PO DAILY December 11, 2023 12:00am Multivitamin With Minerals (5 sources) Start: 02-24-2019 [...] 11:00pm Multivitamin With Minerals 1 EACH tablet (7 sources) Start: 02-24-2019 take 1 tablet by mouth once daily Multivitamin With Minerals 1 EACH tablet Active 1 {tbl} PO DAILY February 24, 2019 12:00am supplement Complies with drug therapy Start: 02-24-2019 take 1 tablet by cira th once daily Multivitamin With Minerals 1 EACH tablet Active 1 {tbl} PO DAILY February 24, 2019 12:00am supplement Start: 02-24-2019 take 1 tablet by cira th once daily Multivitamin With Minerals 1 EACH tablet Active 1 {tbl} PO DAILY February 24, 2019 12:00am nystatin [id number] unt/ml topical cream (19 sources) Polyene Antifungal Start: 10-08-2024 Nystatin 10 0,000 unit/gram cream Active 1 NMA TOPICAL DAILY as needed for skin irritation October 08, 2024 1:00am Complies with drug therapy Start: 10-25-2021 End: 10-25-2022 Nystatin 100,000 unit/gram o intment Discontinued 1 NMA TOPICAL DAILY 30 October 25, 2022 1:00am October 25, 2022 12:32pm for use in the genital area Start: 10-25-2021 End: 10-25-2022 Nystatin Discontinued 1 APPL IC TOPICAL DAILY October 25, 2021 1:00am October 25, 2022 12:32pm for use in the genital area [place]-3 Fatty Acids (3 sources) Start: 10-25-2022 take 1000 mg by mouth once daily [place]-3 Fatty Acids Active 1000 MG PO DAILY October 25, 2022 1:00am Oxygen (3 sources) Start: 04-22-2025 oxygen Active 0 .Route .MEDSUPPLY 1 0 April 22, 2025 12:00am Nocturnal oxygen at 3 liters, per nasal canula potassium chloride 10 meq extended release oral capsule (20 sources) Start: 04-22-2025 take 1 capsule by mouth once daily Potassium Chloride 10 mEq capsule, extended release Active 10 meq PO daily April 22, 2025 12:00am Complies with drug therapy Start: 04-22-2025 take 1 capsule by mo [facility] once daily Potassium Chloride 10 mEq capsule, extended release Active 10 meq PO daily April 22, 2025 12:00am Start: 02-27-2019 End: 01-30-2020 Potassium Chloride 10 mEq ta blet extended release Discontinued 0 .ROUTE .COMPLEX 90 November 06, 2019 9:26am January 30, 2020 1:06pm TAKE 2 TABLETS EVERY DAY WITH SUPPER Start: 02-27-2019 End: 01-30-2020 Potassium Chloride Discontin ued 0 .ROUTE .COMPLEX 90 November 06, 2019 9:26am January 30, 2020 1:06pm TAKE 2 TABLETS EVERY DAY WITH SUPPER psyllium 400 mg oral capsule (12 sources) Start: 01-17-2022 Psyllium Husk (Daily Fiber) 0.4 gram capsule Active 0.4 g PO DAILY January 17, 2022 12:00am Complies with drug therapy QUEtiapine 100 mg oral tablet (20 sources) Atypical Antipsychotic Start: 10-08-2024 Quetiap ine 100 mg tablet Active 50 mg PO AT BEDTIME 60 October 08, 2024 12:44pm Complies with drug therapy Start: 03-13-2022 End: 10-08-2024 take 1 tablet [...] Discontinued 50 mg PO TWICE A DAY 180 December 23, 2020 3:40pm January 04, 2021 [...] 23, 2019 12:00am February 05, 2019 2:21pm vitamin b12 0.5 mg chewable tablet (2 sources) Vitamin B12 Start: 12-11-2023 take 1 tablet by mouth once daily Mecobalamin (Vitamin B12) 500 mcg tablet,chewable Active 500 ug PO DAILY December 11, 2023 12:00am Complies with drug therapy Start: 01-17-2022 inject 100 ug by int ramuscular injection once cyanocobalamin (vitamin B-12) 1,000 mcg/mL injection solution Active 100 MCG IM ONCE 1 January 17, 2022 10:20am vitamin e 180 mg oral capsule (17 sources) Start: 03-18-2025 take 1 capsule by mouth once daily Vitamin E (Dl, Acetate) 180 mg (400 unit) capsule Active 180 mg PO daily March 18, 2025 12:00am Complies with drug therapy Start: 01-04-2018 End: 06-20-2018 take 1 capsule by mouth once daily Vitamin E 200 unit capsule Discontinued 200 U PO daily January 04, 2018 12:00am June 20, 2018 2:03pm zinc acetate 50 mg oral capsule (7 sources) Start: 01-20-2025 take 1 capsule by mouth once daily Zinc Acetate 50 mg (zinc) capsule Active 50 mg PO DAILY January 20, 2025 12:00am Complies with drug therapy Completed/Discontinued Medications Medication Drug Class(es) Dates Sig (Normalized) Sig (Original) acetaminophen 325 mg oral tablet (12 sources) Start: 07-25-2019 End: 07-28-2019 take 1 tablet by mouth every six hours as needed for pain Acetaminophen 325 MG tablet Discontinued 325 mg PO EVERY 6 HOURS NEEDED as needed for Pain Score July 25, 2019 1:00am July 28, 2019 12:20pm albuterol 0.83 mg/ml inhalation solution (12 sources) beta2-Adrenergic Agonist Start: 02-24-2019 End: 02-27-2019 take 2.5 mg by inhalation every four hours Albuterol Sulfate 2.5 MG/3 ML solution for nebulization Discontinued 2.5 mg INHALATION EVERY 4 HOURS WHILE AWAKE February 24, 2019 12:00am February 27, 2019 3:03pm sob amiodarone hydrochloride 100 mg oral tablet (12 sources) Antiarrhythmic Start: 03-21-2018 End: 06-20-2018 take 1 tablet by mouth once daily Amiodarone 100 mg tablet Discontinued 100 mg PO daily March 21, 2018 12:00am June 20, 2018 2:02pm amoxicillin 500 mg oral capsule (10 sources) Penicillin-class Antibacterial Start: 12-06-2022 End: 03-07-2023 take 1 capsule by mouth three times daily Amoxicillin 500 mg capsule Discontinued 500 mg PO THREE TIMES A DAY 20 0 December 06, 2022 12:00am March 07, 2023 2:03pm aspirin 81 mg delayed release oral tablet (5 sources) Platelet Aggregation Inhibitor, Nonsteroidal Anti-inflammatory Drug Start: 03-18-2025 End: 06-04-2025 take 1 tablet by mouth once daily Aspirin (Adult Aspirin Regimen) 81 mg tablet,delayed release (DR/EC) Discontinued 81 mg PO DAILY 1 March 18, 2025 12:00am June 04, 2025 10:17am calcium carbonate 1250 mg oral tablet (12 sources) Start: 10-25-2021 End: 10-25-2022 take 1 tablet by mouth once daily Calcium Carbonate 500 mg calcium (1,250 mg) tablet Discontinued 500 mg PO DAILY October 25, 2021 1:00am October 25, 2022 12:33pm capsaicin 0.33 mg/ml topical cream (12 sources) Start: 08-07-2019 End: 10-01-2019 Capsaicin 56.6 GM cream Discontinued 56.6 g TP 4 TIMES DAILY NEEDED as needed for knee pain 1 August 07, 2019 12:32pm October 01, 2019 12:36pm apply to dry skin up to 4 X's a day for arthritis pain celecoxib 200 mg oral capsule (12 sources) Nonsteroidal Anti-inflammatory Drug Start: 11-26-2017 End: 12-07-2018 take 1 capsule by mouth twice daily Celecoxib (Celebrex) 200 mg capsule Discontinued 200 mg PO TWICE A DAY 180 1 November 26, 2017 12:00am December 07, 2018 11:06am clonazePAM 0.5 mg oral tablet (20 sources) Benzodiazepine Start: 02-18-2021 End: 05-31-2021 take 1 tablet by mouth at bedtime Clonazepam 0.5 mg tablet Discontinued 0.5 mg PO AT BEDTIME 45 2 February 18, 2021 4:49pm May 31, 2021 1:42pm Start: 08-07-2019 End: 02-18-2021 take 0.25 mg by mouth at bedtime Clonazepam Discontinued 0.25 MG PO AT BEDTIME 45 December 20, 2020 12:53pm February 18, 2021 4:56pm Start: 07-28-2019 End: 08-07-2019 take 0.25 mg by mouth at bedtime Clonazepam Discontinued 0.25 MG PO AT BEDTIME July 28, 2019 7:50pm August 07, 2019 5:43pm Start: 01-04-2018 End: 02-18-2021 take 0.25 mg by mouth at bedtime Clonazepam 0.5 mg tablet Discontinued 0.25 mg PO AT BEDTIME 45 2 December 20, 2020 12:53pm February 18, 2021 [...] mg) tablet Discontinued 125 ug PO DAILY 90 September 12, 2023 3:54pm July 09, 2024 12:35pm heart Start: 01-04-2018 End: 01-24-2019 take 1 tablet by mouth once daily Digoxin 125 mcg tablet Discontinued 125 ug PO daily 90 December 11, 2018 7:34am January 24, 2019 4:23pm estradiol 0.1 mg/ml vaginal cream (20 sources) Estrogen Start: 12-11-2023 End: 10-08-2024 Estradiol (Estrace) 0.01 % (0.1 mg/gram) cream Discontinued 1 g VAGINAL TWICE A WEEK 42.5 0 December 11, 2023 12:00am October 08, 2024 12:08pm Start: 10-09-2018 End: 12-10-2018 take 1 tablet by mouth once daily Estradiol 0.5 mg tablet Discontinued 0.5 mg PO DAILY 30 October 09, 2018 11:51am December 10, 2018 4:19pm Start: 01-04-2018 End: 03-21-2018 take 1 tablet by mouth once daily Estradiol 0.5 mg tablet Discontinued 0.5 mg PO daily January 04, 2018 12:00am March 21, 2018 4:37pm folic acid 0.4 mg / vitamin b12 0.5 mg oral tablet (20 sources) Vitamin B12 Start: 07-25-2019 End: 09-12-2021 Vitamin D40-Yoyge Acid 1 EACH tablet Discontinued 1 {tbl} PO DAILY July 25, 2019 1:00am September 12, 2021 3:21pm supp Start: 07-25-2019 End: 09-12-2021 take 1 tablet by mouth once daily Vitamin H37-Jpkup Acid Discontinued 1 TABLET PO DAILY July 25, 2019 1:00am September 12, 2021 3:21pm Start: 02-24-2019 End: 05-20-2019 Vitamin W81-Pzlhf Acid 1 EAC H tablet Discontinued 1 {tbl} PO DAILY February 24, 2019 12:00am May 20, 2019 2:36pm supplement Start: 02-24-2019 End: 05-20-2019 take 1 tablet by mouth once daily Vitamin W41-Bpsnv Acid Discontinued 1 TABLET PO DAILY February 24, 2019 12:00am May 20, 2019 2:36pm Food Supplemt, Lactose-Reduced 120 ML liquid (14 sources) Start: 07-28-2019 End: 03-13-2022 take 1 mL by mouth four times daily Food Supplemt, Lactose-Reduced 120 ML liquid Discontinued 120 mL PO 4 TIMES DAILY July 28, 2019 7:50pm March 13, 2022 11:50am supp Start: 07-28-2019 End: 03-13-2022 take 1 mL by mouth four times daily Food Supplemt, Lactose-Reduced 120 ML liquid Discontinued 120 mL PO 4 TIMES DAILY July 28, 2019 7:50pm March 13, 2022 11:50am Start: 02-27-2019 End: 07-28-2019 take 1 mL by mouth four times daily Food Supplemt, Lactose-Reduced 120 ML liquid Discontinued 120 mL PO 4 TIMES DAILY 0 February 27, 2019 12:00am July 28, 2019 [...] 1 mg PO TWICE A DAY 60 2 May 09, 2018 8:59am January 15, 2019 11:04am imipramine hydrochloride 50 mg oral tablet (20 sources) Tricyclic Antidepressant Start: 05-20-2019 End: 05-19-2020 take 1 tablet by mouth at bedtime Imipramine Hcl 50 mg tablet Discontinued 50 mg PO AT BEDTIME 90 October 14, 2019 1:00pm May 19, 2020 1:17pm supp Start: 03-05-2019 End: 03-21-2019 take 1 tablet by mouth at bedtime Imipramine Hcl 50 mg tablet Discontinued 50 mg PO AT BEDTIME 30 2 March 05, 2019 12:00am March 21, 2019 11:30am Start: 12-26-2018 End: 02-27-2019 take 1 tablet by mouth at bedtime Imipramine Hcl 50 mg tablet Discontinued 50 mg PO AT BEDTIME 90 December 26, 2018 12:00am February 27, 2019 3:04pm Start: 10-09-2018 End: 12-10-2018 take 1 tablet by mouth at bedtime Imipramine Hcl 50 mg tablet Discontinued 50 mg PO AT BEDTIME 30 3 October 09, 2018 1:00am December 10, 2018 4:26pm lidocaine 0.05 mg/mg medicated patch (12 sources) Antiarrhythmic, Amide Local Anesthetic Start: 04-21-2021 End: 09-12-2021 Lidocaine 5 % adhesive patch,medicated Discontinued 1 NMA TOPICAL DAILY 30 April 21, 2021 12:00am September 12, 2021 3:22pm leave on most painful area for up to 12 hrs linaclotide 0.145 mg oral capsule (12 sources) Guanylate Cyclase-C Agonist Start: 01-04-2018 End: [...] 27, 2019 11:30am February 26, 2020 2:04pm bp On Hold: cough.low BP Start: 02-27-2019 End: 06-27-2019 take 1 tablet by mouth twice daily Lisinopril 2.5 mg tablet Discontinued 2.5 mg PO TWICE A DAY 60 6 June 02, 2019 3:28pm June 27, 2019 11:30am Magnesium (12 sources) Start: 01-04-2018 End: 02-27-2019 take 200 mg by mouth once daily Magnesium Discontinued 200 MG PO DAILY January 04, 2018 11:09am February 27, 2019 3:03pm Start: 01-04-2018 End: 02-27-2019 take 1 tablet by mouth once daily Magnesium 200 mg tablet Discontinued 200 mg PO DAILY January 04, 2018 12:00am February 27, 2019 3:03pm supplement Start: 01-04-2018 End: 02-27-2019 take 1 tablet [...] 2:03pm meclizine hydrochloride 12.5 mg oral tablet (20 sources) Antiemetic Start: 01-04-2018 End: 12-07-2018 take 1 tablet by mouth once daily Meclizine 12.5 mg tablet Discontinued 12.5 mg PO daily 30 2 November 22, 2018 9:54am December 07, 2018 11:05am megestrol acetate 40 mg oral tablet (20 sources) Progestin Start: 08-07-2019 End: 10-01-2019 take 1 tablet by mouth twice daily Megestrol 40 mg tablet Discontinued 40 mg PO TWICE A DAY 60 0 August 19, 2019 2:34pm October 01, 2019 12:31pm metoprolol tartrate 25 mg oral tablet (20 sources) beta-Adrenergic Steve Start: 04-30-2023 End: 04-22-2025 take 1 tablet by mouth once daily Metoprolol Tartrate 25 mg tablet Discontinued 25 mg PO DAILY 90 May 07, 2024 4:44pm April 22, 2025 11:43am bp Start: 01-17-2022 End: 04-30-2023 Metoprolol Tartrate 50 mg ta blet Discontinued 25 mg PO DAILY 90 January 17, 2022 10:44am April 30, 2023 3:12pm bp Start: 01-17-2022 End: 04-30-2023 take 25 mg by mouth once daily Metoprolol Tartrate Dis continued 25 MG PO DAILY January 17, 2022 10:44am April 30, 2023 3:12pm Start: 09-12-2021 End: 01-17-2022 Metoprolol Tartrate 50 mg ta blet Discontinued 25 mg PO TWICE A DAY 90 September 12, 2021 3:59pm January 17, 2022 10:54am bp Start: 09-12-2021 End: 01-17-2022 take 25 mg by mouth twice daily Metoprolol Tartrate Di scontinued 25 MG PO TWICE A DAY September 12, 2021 3:59pm January 17, 2022 10:54am Start: 03-04-2021 End: 03-04-2021 Metoprolol Tartrate 50 mg ta blet Discontinued 25 mg PO TWICE A DAY March 04, 2021 3:25pm March 04, 2021 4:13pm bp Start: 03-04-2021 End: 03-04-2021 take 25 mg [...] Discontinued 50 mg PO TWICE A DAY 180 December 20, 2020 12:53pm March 04, 2021 3:26pm bp Start: 01-15-2019 End: 02-05-2019 take 1 tablet by mouth twice daily Metoprolol Tartrate 25 mg tablet Discontinued 25 mg PO TWICE A DAY January 15, 2019 12:00am February 05, 2019 2:20pm mirtazapine 15 mg oral tablet (20 sources) Start: 04-21-2021 End: 09-12-2021 take 1 tablet by mouth at bedtime Mirtazapine (Remeron) 15 mg tablet Discontinued 15 mg PO AT BEDTIME April 21, 2021 12:00am September 12, 2021 3:22pm Start: 01-04-2018 End: 12-07-2018 take 1 tablet by mouth at bedtime Mirtazapine 15 mg tablet Discontinued 15 mg PO AT BEDTIME 30 2 October 25, 2018 3:19pm December 07, 2018 11:05am naloxegol 25 mg oral tablet (12 sources) Opioid Antagonist Start: 08-19-2019 End: 01-30-2020 take 1 tablet by mouth once daily in the morning Naloxegol (Movantik) 25 mg tablet Discontinued 25 mg PO EVERY MORNING 20 0 August 19, 2019 1:00am January 30, 2020 1:06pm must be taken on empty stomach; no food 1 hr after or 2-3 hrs before dose [place]-3 Fatty Acids 1,000 mg capsule (7 sources) Start: 10-25-2022 End: 09-11-2023 take 1 capsule by mouth once daily [place]-3 Fatty Acids 1,000 mg capsule Discontinued 1000 mg PO DAILY October 25, 2022 1:00am September 11, 2023 12:37pm [place]-3 Fatty Acids-Fish Oil (5 sources) Start: 02-24-2019 End: 02-27-2019 take 1000 mg by mouth once daily [place]-3 Fatty Acids-Fish Oil Discontinued 1000 MG PO DAILY February 24, 2019 3:21pm February 27, 2019 3:03pm Start: 02-24-2019 End: 02-27-2019 take 1000 mg by mouth once daily [place]-3 Fatty Acids-Fish Oil Discontinued 1000 MG PO DAILY February 24, 2019 12:00am February 27, 2019 3:03pm Start: 02-24-2019 End: 02-27-2019 take 1000 mg by mouth once daily [place]-3 Fatty Acids-Fish Oil Discontinued 1000 MG PO DAILY February 23, 2019 11:00pm February 27, 2019 2:03pm [place]-3 Fatty Acids-Fish Oil 1 EACH capsule (7 sources) Start: 02-24-2019 End: 02-27-2019 take 1 capsule by mouth once daily [place]-3 Fatty Acids-Fish Oil 1 EACH capsule Discontinued 1000 mg PO DAILY February 24, 2019 12:00am February 27, 2019 3:03pm supplement Start: 02-24-2019 End: 02-27-2019 take 1 capsule by mouth once daily [place]-3 Fatty Acids-Fish Oil 1 EACH capsule Discontinued 1000 mg PO DAILY February 24, 2019 12:00am February 27, 2019 3:03pm omeprazole 20 mg delayed release oral capsule (20 sources) Proton Pump Inhibitor Start: 10-29-2023 End: 01-22-2025 Omeprazole 20 mg capsule,delayed release(DR/EC) Discontinued 20 mg PO .prn 90 2 May 13, 2024 10:37am January 20, 2025 1:02pm Start: 03-07-2023 End: 04-30-2023 take 1 capsule by mouth once daily Omeprazole 20 mg capsule,delayed release(DR/EC) Discontinued 20 mg PO DAILY 30 3 March 07, 2023 12:00am April 30, 2023 2:41pm Start: 04-29-2020 End: 09-12-2021 take 1 capsule by mouth once daily Omeprazole 20 mg capsule,delayed release(DR/EC) Discontinued 20 mg PO DAILY 90 3 January 06, 2021 8:05am March 04, 2021 3:26pm Start: 04-29-2020 End: 07-13-2020 Omeprazole 20 mg capsule,del ayed release(DR/EC) Discontinued NMA PO April 29, 2020 12:00am July 13, 2020 4:17pm Start: 02-07-2019 End: 02-18-2019 take 1 capsule by mouth once daily Omeprazole 20 mg capsule,delayed release(DR/EC) Discontinued 20 mg PO DAILY 30 1 February 07, 2019 12:00am February 18, 2019 1:39pm oxyCODONE hydrochloride 5 mg oral capsule (20 [...] as needed for Pain Score 6-10/10 28 7 0 August 07, 2019 August 13, 2019 1:00am August 19, 2019 2:36pm Closed fracture of neck of left femur Start: 07-28-2019 End: 07-31-2019 take 1 tablet by mouth every four hours as needed for pain Oxycodone 5 MG tablet Discontinued 5 mg PO EVERY 4 HOURS NEEDED as needed for Pain Score 4-10/10 1 0 July 28, 2019 July 28, 2019 1:00am July 31, 2019 1:09am Closed fracture of neck of left femur polyethylene glycol 3350 93682 mg powder for oral solution (20 sources) Osmotic Laxative Start: 06-20-2018 End: 01-20-2025 Polyethylene Glycol 3350 (Miralax) 17 gram powder in packet Discontinued 17 g PO DAILY as needed for constipation March 13, 2022 11:49am January 20, 2025 12:58pm prednisoLONE 10 mg disintegrating oral tablet (20 sources) Corticosteroid Start: 06-20-2018 End: 01-15-2019 take 0.5 tablet by mouth once daily Prednisolone Sodium Phosphate 10 mg tablet,disintegrat ing Discontinued 10 mg PO daily 30 June 20, 2018 2:28pm January 15, 2019 11:37am takes half tablet daily Start: 01-04-2018 End: 06-20-2018 take 1 tablet by mouth once daily Prednisolone Sodium Phosphate 10 mg tablet,disintegrating Discontinued 10 mg PO daily 30 March 21, 2018 4:47pm June 20, 2018 2:29pm predniSONE 10 mg oral tablet (20 sources) Start: 09-02-2020 End: 11-03-2020 Prednisone 10 [...] Discontinued 20 mg PO TWICE A DAY 10 August 17, 2020 1:00am September 02, 2020 [...] TIMES DAILY NEEDED as needed for Nausea 30 May 07, 2019 9:42am July 25, 2019 2:42pm Start: 07-12-2018 End: 01-24-2019 take 1 tablet by mouth once daily as needed for nausea and vomiting Prochlorperazine Maleate (Compazine) 5 mg tablet Discontinued 5 mg PO DAILY as needed for nausea and vomiting 30 July 12, 2018 5:53pm January 24, 2019 4:23pm propafenone hydrochloride 150 mg oral tablet (20 sources) Antiarrhythmic Start: 06-20-2018 End: 01-15-2019 take 1 tablet by mouth every eight hours Propafenone 150 mg tablet Discontinued 150 mg PO Q8H 90 October 09, 2018 11:38am January 15, 2019 11:01am rivaroxaban 20 mg oral tablet (12 sources) Factor Xa Inhibitor Start: 06-20-2018 End: 06-20-2018 take 1 tablet by mouth once daily Rivaroxaban (Xarelto) 20 mg tablet Discontinued 20 mg PO DAILY June 20, 2018 12:00am June 20, 2018 2:25pm sertraline 50 mg oral tablet (20 sources) Serotonin Reuptake Inhibitor Start: 05-19-2020 End: [...] 11:04am sotalol hydrochloride 80 mg oral tablet (12 sources) Antiarrhythmic Start: 01-04-2018 End: 03-21-2018 take 1 tablet by mouth once daily Sotalol 80 mg tablet Discontinued 80 mg PO daily January 04, 2018 12:00am March 21, 2018 4:35pm thyroid (long-term) 30 mg oral tablet (20 sources) Start: 12-26-2017 End: 08-06-2020 take 1 tablet by mouth once daily Thyroid (Pork) 30 mg tablet Discontinued 30 mg PO DAILY 90 1 March 11, 2020 5:03pm August 06, 2020 12:17pm thyroid traMADol hydrochloride 50 mg oral tablet (20 sources) Opioid Agonist Start: 01-04-2018 End: 12-10-2018 Tramadol 50 mg tablet Discontinued 25 mg PO EVERY 6 HOURS as needed for pain 30 0 March 21, 2018 4:48pm December 10, 2018 4:26pm Start: 01-04-2018 End: 12-10-2018 take 25 mg by mouth every six hours Tramadol Discontinued 25 MG PO EVERY 6 HOURS 30 March 21, 2018 4:48pm December 10, 2018 4:26pm triamcinolone acetonide 1 mg/ml topical cream (12 sources) Corticosteroid Start: 10-25-2021 End: 03-18-2025 Triamcinolone Acetonide 0.1 % cream Discontinued 1 NMA TOPICAL DAILY 15 0 October 25, 2021 1:00am March 18, 2025 2:52pm ubidecarenone 10 mg oral capsule (12 sources) Start: 01-04-2018 End: 02-27-2019 Coenzyme Q10 (Co Q-10) 10 mg capsule Discontinued 10 mg PO ONCE January 04, 2018 12:00am February 27, 2019 3:03pm walking boot (12 sources) Start: 02-26-2018 End: 06-20-2018 walking boot Discontinued 1 February 26, 2018 12:05pm June 20, 2018 2:07pm As directed Start: 02-26-2018 End: 06-20-2018 walking boot Discontinued 1 February 26, 2018 12:00am June 20, 2018 2:07pm nondisplaced metatarsal fracture left foot As directed Start: 02-26-2018 End: 06-20-2018 walking boot Discontinued 1 February 26, 2018 12:00am June 20, 2018 2:07pm As directed Start: 02-26-2018 End: 06-20-2018 walking boot Discontinued 1 February 25, 2018 11:00pm June 20, 2018 1:07pm As directed Zinc (11 sources) Start: 03-13-2022 End: 01-20-2025 take 1 [...] Date Documented Da te Episodic/Chronic Allergic reactions (14 sources) Chronic dermatitis; Translations: [Dermatitis, unspecified] 08-15-2022 Episodic Anxiety disorders (19 sources) Mixed anxiety and depressive disorder; Translations: [Anxiety disorder, unspecified] Chronic Cardiac dysrhythmias (20 sources) Atrial fibrillation; Translations: [Unspecified atrial fibrillation] Onset: 04-22-2025 12-05-2018 Chronic Congestive heart failure; nonhypertensive (20 sources) Chronic systolic heart failure; Translations: [Chronic systolic (congestive) heart failure] Onset: 07-09-2024 Chronic Comment on above: The estimated ejecti on fraction is 65 %. per ECHO 03/07/22 Fluid and electrolyte disorders (15 sources) Hyponatremia; Translations: [Hypo-osmolality and hyponatremia] Episodic Fracture of neck of femur (hip) (12 sources) Closed fracture of neck of femur; Translations: [Fracture of unspecified part of neck of left femur, initial encounter for closed fracture] 08-07-2019 Episodic Genitourinary symptoms and ill-defined conditions (7 sources) Dysuria; Translations: [Dysuria] 09-11-2023 Episodic Heart valve disorders (20 sources) Mitral valve prolapse; Translations: [Nonrheumatic mitral (valve) prolapse] Onset: 2025 12-05-2018 Chronic Comment on above: Moderate to severe p er ECHO 03/07/22 Heart valve disorders (12 sources) Heart murmur; Translations: [Cardiac murmur, unspecified] 12-05-2018 Episodic Malaise and fatigue (13 sources) Asthenia; Translations: [Other malaise] 08-07-2019 Episodic Menopausal disorders (8 sources) Atrophic vaginitis; Translations: [Postmenopausal atrophic vaginitis] Onset: 06-16-2025 12-11-2023 Chronic Nonspecific chest pain (1 source) Chest pain, unspecified; Translations: [Chest pain, unspecified] Onset: 06-16-2025 Episodic Nutritional deficiencies (12 sources) Nutritional marasmus; Translations: [Unspecified severe protein-calorie malnutrition] 08-07-2019 Chronic Osteoarthritis (14 sources) Osteoarthritis of knee; Translations: [Unilateral primary osteoarthritis, unspecified knee] 08-07-2019 Chronic Other and ill-defined heart disease (12 sources) Diastolic dysfunction; Translations: [Other ill-defined heart diseases] 07-28-2019 Chronic Other circulatory disease (12 sources) Low blood pressure; Translations: [Hypotension, unspecified] 03-19-2019 Episodic Other ear and sense organ disorders (10 sources) Impacted cerumen; Translations: [Impacted cerumen, unspecified ear] 12-05-2022 Episodic Other ear and sense organ disorders (2 sources) Impacted cerumen, unspecified ear; Translations: [Impacted cerumen] 12-05-2022 Episodic Other lower respiratory disease (7 sources) Dyspnea; Translations: [Dyspnea, unspecified] 01-20-2025 Episodic Other nervous system disorders (1 source) Other chronic pain; Translations: [Other chronic pain] Onset: 06-16-2025 Chronic Other nutritional; endocrine; and metabolic disorders (12 sources) Decrease in appetite; Translations: [Anorexia] 08-07-2019 Episodic Other skin disorders (12 sources) Seborrheic keratosis; Translations: [Other seborrheic keratosis] 10-25-2021 Episodic Other skin disorders (1 source) Other seborrheic keratosis; Translations: [Other seborrheic keratosis] Episodic Other skin disorders (13 sources) Localized swelling, mass and lump, trunk; Translations: [Mass of buttock] 08-15-2022 Episodic Pleurisy; pneumothorax; pulmonary collapse (20 sources) Pleural effusion; Translations: [Pleural effusion, not elsewhere classified] Onset: 04-29-2025 07-28-2019 Episodic Comment on above: seen on an ECHO, not on CXR Pneumonia (except that caused by tuberculosis or sexually transmitted disease) (12 sources) Community acquired pneumonia; Translations: [Pneumonia, unspecified organism] 03-19-2019 Episodic Pulmonary heart disease (20 sources) Pulmonary hypertension; Translations: [Pulmonary hypertension, unspecified] Onset: 04-22-2025 07-28-2019 Chronic Comment on above: PA systolic was rashawn mated at 42 in February 2019 on echocardiogram Residual codes; unclassified (4 sources) Hypoxia; Translations: [Idiopathic sleep related nonobstructive alveolar hypoventilation] 04-22-2025 Chronic Septicemia (except in labor) (12 sources) Sepsis; Translations: [Sepsis, unspecified organism] 03-19-2019 Episodic Spondylosis; intervertebral disc disorders; other back problems (16 sources) Chronic back pain ; Translations: [Dorsalgia, unspecified] Onset: 06-16-2025 04-21-2021 Episodic Thyroid disorders (18 sources) Hypothyroidism; Translations: [Hypothyroidism, unspecified] Chronic Urinary tract infections (14 sources) Urinary tract infectious disease; Translations: [Urinary tract infection, site not specified] 02-18-2021 Episodic Past or Other Problems Problem Classification Problem Date Documented Da te Episodic/Chronic Nutritional deficiencies (20 sources) Cobalamin deficiency; Translations: [Deficiency of other specified B group vitamins] Onset: 07-09-2024 01-23-2022 Episodic Other lower respiratory disease (1 source) Shortness of breath; Translations: [Shortness of breath] Onset: 01-27-2025 Episodic Other nutritional; endocrine; and metabolic disorders (4 sources) Anorexia; Translations: [Anorexia] Onset: 07-09-2024 Episodic Results Test Name Value Interpretation Reference Range Facility Internal Medicine Office Vis zelda 06-16-2025 Internal Medicine Office Visit [facility] Internal Medicine [address] [place] [address] [place] [address] OFFICE VISIT Date of Service: 06/16/25 MR#: [id number] Acct: [id number] Name: MARIBEL SIMPSON Rep #: [id number] : 1940 Provider: Dr. Ronni ca, DO Age/Sex: 85/F Location: [facility] Status: Signed Intake Vital Signs 06/04/25 07:51 06/16/25 13:27 Height 5 ft 6 in Weight: 104 lb 107 lb BMI 16.7 BP 99/61 154/84 H Blood Pressure Location Lt brachial Lt brachial Position Sitting Sitting Respiration 16 14 Pulse 66 54 L Pulse Source Monitor Monitor Temp 97 F L Temp Source Temporal Pulse Oximetry (%) 94 99 Oxygen Delivery Method room air room air Comment Pt wears 2L of O2 hs Intake Visit Reasons: RACING HEART BEAT ON AND OFF Chief Complaint: Shortness of breath. Atmospheric Chemist Required: No Accompanied by: Daughter Is patient in pain?: No Allergies milk Adverse Reaction (Mild, Verified 06/16/25 13:17) gas wheat Adverse Reaction (Mild, Verified 06/16/25 13:17) Abd cramps/diarrhea Medications ???Medication ???Instructions ???Recorded ???Confirmed ???Type multivitamin with minerals 1 tab PO DAILY supplement 02/24/19 06/16/25 History psyllium husk 0.4 gram capsule 0.4 g PO DAILY 01/17/22 06/16/25 H istory (Daily Fiber) cholecalciferol (vitamin D3) 25 25 mcg PO DAILY 03/13/22 06/16/25 History mcg (1,000 unit) tablet food supplemt, lactose-reduced 120 ml PO DAILY PRN supp 04/30/23 06/16/25 History 0.08 gram-1.5 kcal/mL oral liquid ascorbic acid (vitamin C) 500 mg 250 mg PO DAILY 10/29/23 06/16/25 History tablet mecobalamin (vitamin B12) 500 mcg 500 mcg PO DAILY 12/11/23 5 History chewable tablet ibuprofen 200 mg tablet 200 mg PO DAILY PRN fever or pain 10/08/24 06/16/25 History nystatin 100,000 unit/gram topical 1 applic topical DAILY PRN skin 10/08/24 06/16/25 History cream irritation quetiapine 100 mg tablet 50 mg (1/2 x 100 mg) PO QHS #60 06/16/25 Rx tabs polyethylene glycol 3350 17 17 g PO DAILY PRN constipation 06/16/25 History gram/dose oral powder (ClearLax) zinc acetate 50 mg (zinc) capsule 50 mg PO DAILY 01/20/25 06/16/25 History omeprazole 20 mg capsule,delayed 20 mg PO DAILY PRN 01/22/25 History release magnesium chloride 64 mg 64 mg PO QDAY 03/18/25 06/16/25 Hi story (magnesium chloride) tablet,delayed release vitamin E (dl, acetate) 180 mg 180 mg PO QDAY 03/18/25 06/16/25 H istory (400 unit) capsule fluoxetine 20 mg capsule (Prozac) 20 mg PO QDAY #90 caps 04/22/25 1 Rx oxygen #1 ea 04/22/25 06/16/25 Rx potassium chloride 10 mEq 10 meq PO QDAY 04/22/25 06/16/25 H istory capsule,extended release furosemide 20 mg tablet 20 mg PO BID #180 tabs 06/04/25 Rx hydrocodone-acetaminophen 5-325mg 1 tab PO QHS PRN pain 30 days #30 06/16/25 06/16/25 Rx 5mg-325mg tabs metoprolol tartrate 25 mg tablet 25 mg PO BID bp #180 tabs 06/16/25 06/16/25 Rx Have you fallen in the past year?: No Nurse's Note: Pt has h/o CHF. Pt states yesterday. Pt decided she would not take any blood thinner as she feels better she may be open to taking asipirin again, but also does not like the way she feels and bl eeds. Pt also presents w/ sob on exertion and when in reclining position. Which is getting worse. Pt has correspondance w/ [facility] * Pt was not triaged by nursing staff prior to appointment being made. [facility] Medical History (Updated 06/16/25 @ 14:[address] Ronni Sen, DO) Pleural effusion (HFpEF) heart failure with preserved [...] in: none (more content not included)... Normal [facility] Cardiology Visit Reporton Cardiology Visit Report [facility] [address] [place] [address] OFFICE VISIT Date of Service: 06/04/25 MR#: [id number] Acct: [id number] Name: MARIBEL SIMPSON Rep #: [id number] : 1940 Provider: RACHIE Shrestha Age/Sex: 85/F Location: [facility] Status: Signed HPI HPI History of Present Illness Details: Maribel Simpson is an 85 year-old female with a history of congestive heart failure, nonischemic cardiomyopathy, persistent atrial fibrillation and moderately severe mitral insufficiency Pt was in the Er on 01/20/25 for increase SOB. She was again admitted to pulmonary and hospital in April 2025 for acute hypoxic respiratory failure, acute congestive heart failure, bilateral pleural effusions. Patient was treated with IV Lasix. She did have an echocardiogram which demonstrated normal ventricular systolic function. 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 Mild tricuspid insufficiency, pulmonary hypertension with an RVSP of 45 mmHg. Small pericardial effusion. Pleural effusion. Initially after her last office visit we had increased her Lasix to 40 mg daily. She has since decrease this back to 20 mg twice a day. She states that she is feeling better since her last office visit. She does sometimes have shortness of breath but is not worse. She is able to lay flat without any issues. She does sometimes have stomach aches. She has stopped taking her aspirin. Intake Vital Signs 04/22/25 09:42 04/22/25 11:19 06/04/25 07:51 Height 5 ft 6.93 in 5 ft 6 in 5 ft 6 in Weight: 104 lb 105 lb 104 lb BMI 16.3 16.9 16.7 BP 110/69 120/60 99/61 Blood Pressure Location Lt brachial Lt brachial Lt brachial Position Sitting Sitting Sitting Respiration 16 18 16 Pulse 83 82 66 Pulse Source Monitor Monitor Monitor Temp 96.2 F L Pulse Oximetry (%) 96 97 94 Oxygen Delivery Method room air room air room air Comment Pt wears 2L of O2 hs Intake Visit Reasons: 6 wk FU Atmospheric Chemist Required: No Accompanied by: Daughter Is patient in pain?: No Allergies milk Adverse Reaction (Mild, Verified 06/04/25 10:16) gas wheat Adverse Reaction (Mild, Verified 06/04/25 10:16) Abd cramps/diarrhea Medications ???Medication ???Instructions ???Recorded ???Confirmed ???Type multivitamin with minerals 1 tab PO DAILY supplement 02/24/19 06/04/25 History psyllium husk 0.4 gram capsule 0.4 g PO DAILY 01/17/22 06/04/25 H istory (Daily Fiber) cholecalciferol (vitamin D3) 25 25 mcg PO DAILY 03/13/22 06/04/25 History mcg (1,000 unit) tablet food supplemt, lactose-reduced 120 ml PO DAILY PRN supp 04/30/23 06/04/25 History 0.08 gram-1.5 kcal/mL oral liquid ascorbic acid (vitamin C) 500 mg 250 mg PO DAILY 10/29/23 06/04/25 History tablet mecobalamin (vitamin B12) 500 mcg 500 mcg PO DAILY 12/11/23 5 History chewable tablet ibuprofen 200 mg tablet 200 mg PO DAILY PRN fever or pain 10/08/24 06/04/25 History nystatin 100,000 unit/gram topical 1 applic topical DAILY PRN skin 10/08/24 06/04/25 History cream irritation quetiapine 100 mg tablet 50 mg (1/2 x 100 mg) PO QHS #60 06/04/25 Rx tabs polyethylene glycol 3350 17 17 g PO DAILY PRN constipation 06/04/25 History gram/dose oral powder (ClearLax) zinc acetate 50 mg (zinc) capsule 50 mg PO DAILY 01/20/25 06/04/25 History omeprazole 20 mg capsule,delayed 20 mg PO DAILY PRN 01/22/25 History release magnesium chloride 64 mg 64 mg PO QDAY 03/18/25 06/04/25 Hi story (magnesium chloride) tablet,delayed release vitamin E (dl, acetate) 180 mg 180 mg PO QDAY 03/18/25 06/04/25 H istory (400 unit) capsule fluoxetine 20 mg capsule (Prozac) 20 mg PO QDAY #90 caps 04/22/25 1 Rx metoprolol tartrate 25 mg tablet 25 mg PO DAILY bp #90 tabs 5 06/04/25 Rx oxygen #1 ea 04/22/25 06/04/25 Rx potassium chloride 10 mEq 10 meq PO QDAY 04/22/25 06/04/25 H istory capsule,extended release apixaban 2.5 mg tablet 2.5 mg PO BID blood thinner #60 06/04/25 Rx tabs furosemide 20 mg tablet 20 mg PO BID #180 tabs 06/04/25 Rx hydrocodone-acetaminophen 5-325mg 1 tab PO QHS PRN pain 06/04/25 History 5mg-325mg Ejection fraction %: 60 Have you fallen in the past year?: No Nurse's Note: Pt stopped taking aspirin due to stomach issues. Pt's pulse was jumping around a lot. Ranging from 90 BPM-62 BPM. Pt c/o rash on both arms, and between her breasts. She claims this is a burning sensation. She puts a slave on it, but they are very prevalent, and seem to be spreading to new parts of her body. 40 MG of Lasix was ordered for pt to take once a day, but pt has been taking 20 in AM and 20 hs due to her stomach hurti (more content not included)... Normal [facility] ED MED ADMINISTRATION DETAIL on 04-29-2025 ED MED ADMINISTRATION DETAIL Coverage Analyst - MARIBEL SIMPSON, : 1940, , Medication Administration Record [address] [place] [address] [id number] 04/10/2025 Patient: MARIBEL SIMPSON Sex: Female : 1940 Age: 85y MEASUREMENTS: Wt: 48.1 kg, Ht/Salas: 67.0 in, BMI: 16.60 ALLERGIES: No known drug allergies Medication Ordered Medication Administration Date/Time IV NS 0.9 % 500 mL 14:44 04/10 IV NS 0.9 % 500 mL started in bag#1 500 mL at 999 Started at 999 mL/hr over mL/hr over 30 minute(s) via Site# 1. Via IV pump. Medication 14:44 04/10/2025 30 minute(s) (NOW Wastage: 500 mL wasted. - 14:45 Elijah Giles, x1) R.NJori 15:52 04/10 Medication Discontinued: bag #1 completed. Total Stopped amount infused: 500 mL. IV patency established. IV site checked: 15:52 04/10/2025 no pain, redness, or swelling. IV flushed thoroughly post-medication Margaret George administration. - 20:52 Margaret George R.N. R.N. Scanned Zofran IVP 4 mg 14:44 04/10 Zofran IVP 4 mg given via Site# 1. - 14:45 Margaret Waters (NOW x1) Elijah George 14:44 04/10/2025 Margaret George R.N. Scanned Furosemide (Lasix) 20:54 04/10 Furosemide (Lasix) IVP 40 mg given via Site# 1. Given IVP 40 mg Allergies verified and confirmed 5 rights. IV patency established. IV 20:54 04/10/2025 site checked: no pain, redness, or swelling. IV flushed thoroughly Margaret George pre-medication administration. IVP given by nurse. Information R.N. reviewed with patient including reason for taking this medication, Scanned signs of allergic reaction and precautions. (n Notet last dose at home was yesterday morning). - 20:55 Margaret George R.N. 1 of 2 Coverage Analyst - MARIBEL SIMPSON, : 1940, , 2 of 2 Normal [facility] ED NURSES CLINICAL NOTEon ED NURSES CLINICAL NOTE Nurse Narrative - MARIBEL SIMPSON, : 1940, , Nurse Clinical Narrative [facility] [address] [place] [address] [phone] 04/10/2025 12:48:00 Patient: MARIBEL SIMPSON Sex: Female : 1940 Age: 85y Disposition: Admit to [facility] Disposition Decision Time: 18:44 04/10/2025 Departure Time: 21:55 04/10/2025 TRIAGE Arrived by EMS. Historian: (patient). Primary physician (Letty). Triage time: 12:48 04/10/2025. Acuity: LEVEL 3. Chief Complaint: NAUSEA, VOMITING and DIARRHEA. This started yesterday. The patient has had nausea. SEPSIS SCREEN: NEGATIVE. SIRS criteria negative: heart rate greater than 90. No possible sources of infection. -- 13:10 04/10/25 EDT Gayla Hyatt R.N. 13:03 04/10/25. BP: 109/94 MAP: 99. HR: 95. RR: 18. O2 saturation: 94% Temperature: 97.9 F. Pain level now 0/10. -- 13:04/10/25 EDT Gayla Hyatt R.N. Measurements: 13:04/10/25 Wt: 48.1 kg, Ht/Salas: 67.0 in, BMI: 16.60 -- 13:04/10/25 EDT Gayla Hyatt R.N. Medications: FLUoxetine 20 mg capsule: 20 mg once a day . -- 12:56 04/10/25 EDT Gayla Hyatt R.N. furosemide 20 mg tablet: 20 mg once a day . -- 12:57 04/10/25 EDT Gayla Hyatt R.N. Percocet 5 mg-325 mg tablet: 1 tab as needed for pain. -- 12:58 04/10/25 EDT Gayla Hyatt R.N. ibuprofen 200 mg capsule: 200 mg as needed. -- 12:59 04/10/25 LEIDYT Gayla Hyatt R.N. 1 of 5 Nurse Narrative - MARIBEL SIMPSON, : 1940, , metoprolol tartrate 25 mg tablet: 25 mg . -- 12:59 04/10/25 EDT Gayla Hyatt R.N. Miralax 17 gram oral powder packet: 17 grams once a day as needed. -- 13:00 04/10/25 LEIDYT Gayla Hyatt R.N. omeprazole 20 mg capsule,delayed release: 20 mg once a day . -- 13:00 04/10/25 LEIDYT Gayla Hyatt R.N. metoprolol tartrate 25 mg tablet: 25 mg once a day . -- 15:22 04/10/25 LEIDYT Gayla Hyatt R.N. nystatin 100,000 unit/gram topical powder: 1 application as needed. -- 15:23 04/10/25 ALBERT Hyatt R.N. nystatin oral -- 15:29 04/10/25 LEIDYT Gayla Hyatt R.N. QUEtiapine 50 mg tablet: 50 mg once a day . -- 15:30 04/10/25 ALBERT Hyatt R.N. Allergies: no known drug allergies -- 12:54 04/10/25 ALBERT Hyatt R.N. Problems: Hypothyroidism -- 12:55 04/10/25 ALBERT Hyatt R.N. Depression -- 12:55 04/10/25 ALBERT Hyatt R.N. Anxiety disorder -- 12:55 04/10/25 LEIDYT Gayla Hyatt R.N. Atrial Fibrillation -- 12:55 04/10/25 LEIDYT Gayla Hyatt R.N. Surgeries: Appendectomy -- 13:01 04/10/25 ALBERT Hyatt R.N. Hysterectomy -- 13:01 04/10/25 LEIDYT Gayla Hyatt R.N. Cholecystectomy -- 13:01 04/10/25 ALBERT Hyatt R.N. Cataract Surgery -- 13:01 04/10/25 EDT Gayla Hyatt R.N. skin cancer -- 13:04/10/25 EDT Gayla Hyatt R.N. History 12:48 04/10/25. SOCIAL HX: Never smoker. No alcohol use or drug use. The patient has not traveled outside the [place] Infectious disease exposure: No infectious disease exposure. ABUSE ASSESSMENT: The patient answered yes to the question(s) Do you feel safe in your home? and no to the question(s) Are you afraid to go home?. SELF HARM ASSESSMENT: Self harm assessment was performed. The patient answered no to the question(s) Have you recently felt down, depressed, or hopeless? and Do you have thoughts of harming or killing yourself?. -- 13:10 04/10/25 ELIDYT Gayla Hyatt R.N. 2 of 5 Nurse Narrative - MARIBEL SIMPSON, : 1940, , 13:07 04/10/25. FALL RISK ASSESSMENT: Fall risk assessment completed. Risk factors identified include patient age greater than 65 years. Fall interventions initiated. Side rails up x2. Bed in low position. Brakes on. Patient identified as a fall risk by ID band. -- 13:12 04/10/25 EDT Gayla Hyatt R.N. Interventions 12:48 04/10/25. Advanced care plan discussed with patient. Patient has a living will. -- 13:10 04/10/25 LEIDYT Gayla Hyatt R.N. PHYSICAL ASSESSMENT 13:55 04/10/25. To room via stretcher. GENERAL / NEURO / PSYCH: Alert. Oriented X 4. Appears in no acute distress. HEENT: Mucous membranes are pink. RESPIRATORY: No respiratory distress. Respirations not labored. Chest nontender. Breath sounds within normal limits. CVS: Cardiac rhythm: atrial fibrillation. Abnormal heart sounds. Capillary refill is greater than 2 seconds. GI / : Abdomen soft and nontender. Bowel sounds within normal limits. SKIN: Skin is warm and dry. Normal skin turgor. -- 14:20 04/10/25 EDT Margaret George R.N. NURSING PROGRESS NOTES 12:48 04/10/25. 12-LEAD EKG: EKG time: (12:58 04/10/2025). 12-Lead EKG was performed by me and shown to the ED physician. -- 13:08 04/10/25 EDT Raquel Ramires 14:44 04/10/25. Zofran IVP 4 mg given via Site# 1. -- 14:45 04/10/25 EDT Margaret George R.N. 14:44 04/10/25. IV NS 0.9 % 500 mL started in bag#1 5 (more content not included)... Normal [facility] ED ORDER SHEET (CPOE ONLY)on 04-29-2025 ED ORDER SHEET (CPOE ONLY) Order Sheet - MARIBEL SIMPSON, : 1940, , Order Sheet [address] [place] [address] [id number] 04/10/2025 Patient: MARIBEL SIMPSON Sex: Female : 1940 Age: 85y MEASUREMENTS: Wt: 48.1 kg, Ht/Salas: 67.0 in, BMI: 16.60 ALLERGIES: No known drug allergies MEDICATION/IV/DRIP/FLUID ORDERS Order Description Priority Entered Acknowledged Completed IV NS 0.9 %500 mL at 999 mL/hr 14:19 04/10/2025 14:23 14:45 over 30 minute(s) (NOW x1) Arya Moser M.D. 04/10/2025 04/10/2025 Elijah Stout R.N. Zofran IVP4 mg (NOW x1) 14:19 04/10/2025 14:23 14:45 Arya Moser M.D. 04/10/2025 04/10/2025 Elijah Stout R.N. Furosemide (Lasix) IVP40 mg 20:40 04/10/2025 20:45 20:55 Frankie Granda D.O. 04/10/2025 04/10/2025 Elijah Stout R.N. Reason for ordering with alerts: Clinical consideration given --20:40 04/10/2025 Frankie Granda D.O. LAB ORDERS Order Description Priority Entered Acknowledged Collected Completed 1 of 3 Order Sheet - MARIBEL SIMPSON, : 1940, , CBC w Diff Stat Stat 14:19 04/10/2025 14:22 04/10/2025 14:35 04/10/2025 Margaret Pimentel M.D., R.N. [place], R.N. CMP Stat Stat 14:19 04/10/2025 14:22 04/10/2025 14:35 04/10/2025 Margaret Pimentel M.D., R.N. [place], R.N. Lipase Stat Stat 14:19 04/10/2025 14:22 04/10/2025 14:35 04/10/2025 Margaret Pimentel M.D., R.N. [place], R.N. Lactate, Serum Stat Stat 14:19 04/10/2025 14:22 04/10/2025 14:43 04/10/2025 Margaret Pimentel M.D., R.N. [place], R.N. EKG - ED Stat Stat 14:19 04/10/2025 14:22 04/10/2025 14:22 04/10/2025 Margaret Pimentel M.D., R.N. [place], R.N. Troponin-I Stat Stat 14:19 04/10/2025 14:22 04/10/2025 14:35 04/10/2025 Margaret Pimentel M.D., R.N. [place], R.N. Urinalysis Stat Stat 14:19 04/10/2025 14:22 04/10/2025 16:51 04/10/2025 AryaMargaret Martines M.D., R.N. [place], R.N. Flu Swab (Influenzae Stat 14:19 04/10/2025 14:22 04/10/2025 14:43 04/10/2025 AAg) Stat Margaret Pimentel M.D., R.N. [place], R.N. 2 of 3 Order Sheet - MARIBEL SIMPSON, : 1940, , Rapid COVID (SARS) Stat 14:19 04/10/2025 14:22 04/10/2025 14:43 04/10/2025 ANTIGEN TEST Stat Margaret Pimentel M.D., R.N. [place], R.N. BNP Stat Stat 20:28 04/10/2025 20:44 04/10/2025 20:51 04/10/2025 Flory Vallejo R.N. [place], R.N. DIAGNOSTIC STUDY ORDERS Order Description Priority Entered Acknowledged Completed CT ABD/PEL wo Cont Stat Stat 14:19 04/10/2025 14:22 14:59 Arya Moser M.D. 04/10/2025 04/10/2025 Elijah Stout R.N. Reason for Study: Abdominal Tenderness Chest 1V Stat Stat 14:53 04/10/2025 14:54 14:59 Arya Moser M.D. 04/10/2025 04/10/2025 Elijah Stout R.N. Order Comments: 14:53 04/10/2025: Status: Unknown. Arya Moser M.D. Reason for Study: Shortness of Breath STAFF ORDERS Order Description Priority Entered Acknowledged Collected Completed IV Saline Lock 14:19 04/10/2025 14:22 04/10/2025 14:35 04/10/2025 Margaret Pimentel M.D., R.N. [place], R.N. [Electronically signed by Arya Moser M.D. (04/10/2025 14:19 EDT)] [Electronically signed by Arya Moser M.D. (04/10/2025 14:53 EDT)] [Electronically signed by Frankie Granda D.O. (04/11/2025 01:23 EDT)] 3 of 3 Normal [facility] ED PHYSICIAN CLINICAL REPORT on 04-29-2025 ED PHYSICIAN CLINICAL REPORT Narrative - MARIBEL SIMPSON, : 1940, , Physician Clinical [facility] [address] [place] [address] [phone] 04/10/2025 12:48:00 Patient: MARIBEL SIMPSON Sex: Female : 1940 Age: 85y Disposition: Admit to [facility] Disposition Decision Time: 18:44 04/10/2025 Departure Time: 21:55 04/10/2025 Measurements Wt: 48.1 kg, Ht/Salas: 67.0 in, BMI: 16.60 Initial Vital Sign Measured Time BP MAP HR RR O2Sat ETCO2 Temp Pain GCS RTS 13:03 04/10/2025 109/94 99 95 18 94% 97.9 F 0 Time Seen: 12:47 04/10/2025. Arrived- By ambulance. Historian- patient. HISTORY OF PRESENT ILLNESS Chief Complaint: VOMITING and DIARRHEA. This started 4 days ago. negative hematemesis negative melena. Patient has dry heaves and feels nauseous all day and is still present. No recent travel. The patient has had nausea, vomiting and diarrhea. No abdominal pain, constipation or flank pain. Has not recently been camping or on antibiotics. Possible bad food exposure. The illness is described as moderate. (Patient feels weak. Mucous membranes are dry. Skin turgor is decreased.). Similar symptoms previously. Patient has had similar symptoms twice. Recent medical care: The patient was seen recently by a health care provider (no). 1 of 42 Narrative - MARIBEL SIMPSON, : 1940, , REVIEW OF SYSTEMS CVS: No chest pain. CONSTITUTIONAL: No fever. The patient has had muscle aches. : No difficulty with urination or excessive urination. The patient has had dark urine. NEUROLOGICAL: No headache. The patient has had dizziness. RESPIRATORY: No cough. Status: Unknown. PAST HISTORY See nurses notes. Anxiety disorder Atrial Fibrillation Depression Hypothyroidism Surgeries: Appendectomy Cataract Surgery Cholecystectomy Hysterectomy skin cancer Medications: FLUoxetine 20 mg capsule: 20 mg once a day . furosemide 20 mg tablet: 20 mg once a day . ibuprofen 200 mg capsule: 200 mg as needed. metoprolol tartrate 25 mg tablet: 25 mg once a day . Miralax 17 gram oral powder packet: 17 grams once a day as needed. nystatin 100,000 unit/gram topical powder: 1 application as needed. nystatin oral omeprazole 20 mg capsule,delayed release: 20 mg once a day . Percocet 5 mg-325 mg tablet: 1 tab as needed for pain. QUEtiapine 50 mg tablet: 50 mg once a day . Allergies: no known drug allergies 2 of 42 Narrative - MARIBEL SIMPSON, : 1940, , SOCIAL HISTORY Never smoker. No alcohol use or drug use. FAMILY HISTORY Negative. ADDITIONAL NOTES The nursing notes have been reviewed. PHYSICAL EXAM Vital Signs: Burnside Coma Scale: 15- eyes open- spontaneous (4); best verbal response- oriented (5); best motor response- obeys commands (6). Appearance: Alert. Oriented X3. No acute distress. Eyes: Pupils equal, round and reactive to light. Eyes normal inspection. ENT: Ears normal. Nose normal. Pharynx normal. Neck: Normal inspection. Neck supple. No JVD. CVS: Normal heart rate and rhythm. Heart sounds normal. Respiratory: No respiratory distress. No respiratory distress. Painless inspiration. Breath sounds normal. Abdomen: Soft. Bowel sounds normal. Tenderness present. No rebound tenderness, distention, mass present, organomegaly or guarding. Back: Normal inspection. Skin: Poor skin turgor. Skin warm and dry. Normal skin color. Normal skin turgor. Extremities: Extremities exhibit normal ROM. No lower extremity edema. Neuro: Oriented X 3. No motor deficit. No sensory deficit. LABS, X-RAYS, AND EKG Laboratory Tests: CBC + DIFF Final MIGNON: 04/10/2025 13:00:00 EDT MsgRcvd: 04/10/2025 14:33 EDT 3 of 42 MARIBEL Cantor, : 1940, , Lab Test Result Reference Status Received 04/10/2025 14:33 CBC + DIFF Final EDT CBC-COMPLETE BLOOD COUNT 04/10/2025 14:33 WBC 6.9 x 10/UL 4.5 - 10.8 Final EDT 04/10/2025 14:33 RBC 4.45 x 10/UL 4.10 - 5.30 Final EDT 04/10/2025 14:33 HEMOGLOBIN 14.0 g/dl 12.0 - 16.0 Final EDT 04/10/2025 14:33 HEMATOCRIT 41.0 % 34.0 - 46.0 Final EDT 04/10/2025 14:33 MCV 92 fl 80 - 99 Final EDT 04/10/2025 14:33 MCH 31 pg 27 - 33 Final EDT 04/10/2025 14:33 MCHC 34 X10 3 32 - 36 Final EDT 04/10/2025 14:33 RDW/CV 14.4 % 12.0 - 15.6 Final EDT 04/10/2025 14:33 PLATELET 278 x10/UL 150 - 450 Final EDT 04/10/2025 14:33 MPV 8.5 fl 6.6 - 10.5 Final EDT AUTOMATED DIFFERENTIAL 77.9 % 04/10/2025 14:33 NEUT % 46.0 - 76.0 Final Above high normal EDT 4 of 42 MARIBEL Cantor, : 1940, , 16.2 % 04/10/2025 14:33 LYMPH % 20.0 - 45.0 Final Be (more content not included)... Normal [facility] ED SUPER BILLon 04-29-2025 ED SUPER BILL MARIBEL Mcgovern, : 1940, , [facility] [address] [place] [address] [phone] 04/10/2025 Patient: MARIBEL SIMPSON Sex: Female : 1940 Age: 85y Facility Professional Category Item Description Code Code Quantity Fee Total Drugs Normal Saline 493229 1 $0.00 $0.00 1000cc (087711) Nurse/E/M EMERGENCY 718765 1 $0.00 $0.00 DEPT VISIT HIGH SEVERITYFUNCJ (90452-56) Nurse/IV/IM/Infusions Hydration 185999 1 $0.00 $0.00 additional hour (46311) Nurse/IV/IM/Infusions IVP additional 333946 1 $0.00 $0.00 push (78982) Nurse/IV/IM/Infusions IVP initial (71661) 308910 1 $0.00 $0.00 Grand $0.00 Total Providers Emely Pimentel D.O. 1 of 2 Superbill - MARIBEL SIMPSON, : 1940, , Chief Complaint VOMITING and DIARRHEA. Principal Diagnoses Vomiting with nausea. No dehydration. Subacute noninfectious gastroenteritis. No volume depletion, dehydration, hypernatremia or hypokalemia. Medium-sized right and small left pleural effusion. Hyponatremia. Hypoxia. ICD-10 Codes R11.2: Nausea with vomiting, unspecified K52.9: Noninfective gastroenteritis and colitis, unspecified J90: Pleural effusion, not elsewhere classified J45.909: Unspecified asthma, uncomplicated R09.02: Hypoxemia E87.1: Hypo-osmolality and hyponatremia 2 of 2 Normal [facility] ED VISIT SUMMARYon ED VISIT SUMMARY Visit Overview - MARIBEL SANCHEZ, : 1940, , Visit Overview [facility] [address] [place] [address] [phone] 04/10/2025 Patient: MARIBEL SIMPSON Sex: Female : 1940 Age: 85y 04/29/2025 07:47 AM EDT ED Arrival:12:48 04/10/2025 EDT Status: Recent Travel:no Language:eng Adv Directive:Yes Isolation Status: Ethnicity:N Fall Risk:risk Infectious Disease Exposure:no Measurements:5'7 / 170.2 Self-Harm Status:risk Sepsis Screen:negative cm 106.0 lb / 48.1 kg Chief Complaint:DIARRHEA, NAUSEA, VOMITING, and (Brown) ALLERGIES No Known Drug Allergies HOME MEDICATIONS FLUoxetine 20 mg capsule: 20 mg once a day . furosemide 20 mg tablet: 20 mg once a day . ibuprofen 200 mg capsule: 200 mg as needed. metoprolol tartrate 25 mg tablet: 25 mg once a day . Miralax 17 gram oral powder packet: 17 grams once a day as needed. nystatin 100,000 unit/gram topical powder: 1 application as needed. 1 of 4 Visit Corinne - MARIBEL SIMPSON, : 1940, , nystatin oral omeprazole 20 mg capsule,delayed release: 20 mg once a day . Percocet 5 mg-325 mg tablet: 1 tab as needed for pain. QUEtiapine 50 mg tablet: 50 mg once a day . PAST MEDICAL HISTORY / PROBLEMS Anxiety disorder Atrial Fibrillation Depression Hypothyroidism See nurses notes PAST SURGICAL HISTORY Appendectomy Cataract Surgery Cholecystectomy Hysterectomy skin cancer SOCIAL HISTORY Smoking status: No Alcohol use: No Drug use: No ED COURSE MEDICATIONS GIVEN IN EMERGENCY DEPARTMENT 14:44 04/10/25 Zofran IVP 4 mg 14:44 04/10/25 IV NS 0.9 % 500 mL 999 mL/hr over 30 minute(s) 20:54 04/10/25 Furosemide (Lasix) IVP 40 mg IV SITE INFORMATION 14:19 04/10/25 Site #1 left AC, 20g. Saline lock. INTAKE OUTPUT 2 of 4 Visit Corinne - MARIBEL SIMPSON, : 1940, , REASSESMENT (most recent) 19:50 04/10/25. ( Attempted to get O2 set up at [facility]isted Living. SPoke with Nurse and [employer] [facility], they state that they do not have weekend availability to set up O2 at the home.). VITAL SIGNS First Vitals Last Vitals Temp 13:03 04/10/25 97.9 F Temp 21:42 04/10/25 BP 13:03 04/10/25 109/94 BP 21:42 04/10/25 HR 13:03 04/10/25 95 HR 21:42 04/10/25 78 RR 13:03 04/10/25 18 RR 21:42 04/10/25 O2 Sat 13:03 04/10/25 94% O2 Sat 21:42 04/10/25 96% Pain 13:03 04/10/25 0 Pain 21:42 04/10/25 ETCO2 13:03 04/10/25 ETCO2 21:42 04/10/25 GCS 13:03 04/10/25 GCS 21:42 04/10/25 RTS 13:03 04/10/25 RTS 21:42 04/10/25 PROCEDURES NURSING INTERVENTIONS LABS / STUDIES LABS / STUDIES ORDERED BNP CBC w Diff Chest 1V CMP CT ABD/PEL wo Cont EKG - ED Flu Swab (Influenzae AAg) Lactate, Serum Lipase Rapid COVID (SARS) ANTIGEN TEST Troponin-I Urinalysis CLINICAL IMPRESSION 3 of 4 Visit Overview - MARIBEL SIMPSON, : 1940, , HYPONATREMIA HYPOXIA MEDIUM-SIZED RIGHT AND SMALL LEFT PLEURAL EFFUSION SUBACUTE NONINFECTIOUS GASTROENTERITIS. NO VOLUME DEPLETION, DEHYDRATION, HYPERNATREMIA OR HYPOKALEMIA VOMITING WITH NAUSEA. NO DEHYDRATION 4 of 4 Normal [facility] ED VITALS FLOW SHEETon 04-29 ED VITALS FLOW SHEET Vitals - STANLEY SIMPSON, : 1940, , Vital Sign Flow Sheet [facility] [address] [place] [address] [phone] 04/10/2025 Patient: MARIBEL SIMPSON Sex: Female : 1940 Age: 85y Measurements Wt: 48.1 kg, Ht/Salas: 67.0 in, BMI: 16.60 Measured Time BP MAP HR RR O2Sat ETCO2 Temp Pain GCS RTS 21:42 04/10/2025 78 96% 21:38 04/10/2025 110/76 92 100 21:37 04/10/2025 84 96% 21:32 04/10/2025 85 95% 21:27 04/10/2025 90 94% 21:24 04/10/2025 130/74 92 90 21:17 04/10/2025 95 97% 21:12 04/10/2025 86 96% 21:08 04/10/2025 129/78 92 81 21:07 04/10/2025 94 97% 13:03 04/10/2025 109/94 99 95 18 94% 97.9 F 0 1 of 1 Normal [facility] Cardiology Visit Reporton Cardiology Visit Report [facility] [address] [place] [address] OFFICE VISIT Date of Service: 04/22/25 MR#: [id number] Acct: [id number] Name: MARIBEL SIMPSON Rep #: [id number] : 1940 Provider: ARCHIE Shrestha Age/Sex: 85/F Location: [facility] Status: Signed HPI HPI History of Present Illness Details: Maribel Simpson is an 85 year-old female with a history of congestive heart failure, nonischemic cardiomyopathy, persistent atrial fibrillation and moderately severe mitral insufficiency Pt was in the Er on 01/20/25 for increase SOB. She was again admitted to pulmonary and hospital in April 2025 for acute hypoxic respiratory failure, acute congestive heart failure, bilateral pleural effusions. Patient was treated with IV Lasix. She did have an echocardiogram which demonstrated normal ventricular systolic function. 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 Mild tricuspid insufficiency, pulmonary hypertension with an RVSP of 45 mmHg. Small pericardial effusion. Pleural effusion. She resides at an AL in [facility]. She questions needing O2 at night. She does have SOB with activity, when compared to previous visit she feels that this is worse. She does get more short of breath with activity. She does have some fatigue and lightheadedness. She has not had any syncope. She does occasionally have palpitations. She does occasionally have chest discomfort. Intake Vital Signs 03/18/25 14:48 08/20/25 09:42 Height 5 ft 6.93 in 5 ft 6.93 in Weight: 106 lb 104 lb BMI 16.6 16.3 BP 93/59 L 110/69 Blood Pressure Location Rt brachial Lt brachial Position Sitting Sitting Respiration 16 16 Pulse 94 83 Pulse Source Monitor Monitor Pulse Oximetry (%) 96 Oxygen Delivery Method room air Intake Visit Reasons: S/P Pomerene 04/13 Palps Atmospheric Chemist Required: No Accompanied by: Daughter Is patient in pain?: No Allergies milk Adverse Reaction (Mild, Verified 04/22/25 09:45) gas wheat Adverse Reaction (Mild, Verified 04/22/25 09:45) Abd cramps/diarrhea Medications ???Medication ???Instructions ???Recorded ???Confirmed ???Type multivitamin with minerals 1 tab PO DAILY supplement 02/24/19 04/22/25 History psyllium husk 0.4 gram capsule 0.4 g PO DAILY 01/17/22 04/22/25 H istory (Daily Fiber) cholecalciferol (vitamin D3) 25 25 mcg PO DAILY 03/13/22 04/22/25 History mcg (1,000 unit) tablet food supplemt, lactose-reduced 120 ml PO DAILY PRN supp 04/30/23 04/22/25 History 0.08 gram-1.5 kcal/mL oral liquid ascorbic acid (vitamin C) 500 mg 250 mg PO DAILY 10/29/23 04/22/25 History tablet mecobalamin (vitamin B12) 500 mcg 500 mcg PO DAILY 12/11/23 5 History chewable tablet metoprolol tartrate 25 mg tablet 25 mg PO DAILY bp #90 tabs 4 04/22/25 Rx hydrocodone-acetaminophen 5-325mg 1 tab PO QHS PRN pain 09/15/24 History 5mg-325mg ibuprofen 200 mg tablet 200 mg PO DAILY PRN fever or pain 10/08/24 04/22/25 History nystatin 100,000 unit/gram topical 1 applic topical DAILY PRN skin 10/08/24 04/22/25 History cream irritation quetiapine 100 mg tablet 50 mg (1/2 x 100 mg) PO QHS #60 04/22/25 Rx tabs polyethylene glycol 3350 17 17 g PO DAILY PRN constipation 04/22/25 History gram/dose oral powder (ClearLax) zinc acetate 50 mg (zinc) capsule 50 mg PO DAILY 01/20/25 04/22/25 History fluoxetine 20 mg capsule (Prozac) 20 mg PO QDAY 01/22/25 04/22/25 H istory omeprazole 20 mg capsule,delayed 20 mg PO DAILY PRN 01/22/25 History release aspirin 81 mg tablet,delayed 81 mg PO DAILY #1 TAB 03/18/25 Rx release (Adult Aspirin Regimen) magnesium chloride 64 mg 64 mg PO QDAY 03/18/25 04/22/25 Hi story (magnesium chloride) tablet,delayed release vitamin E (dl, acetate) 180 mg 180 mg PO QDAY 03/18/25 04/22/25 H istory (400 unit) capsule furosemide 40 mg tablet 40 mg PO QAM #90 tabs 04/22/25 Rx potassium chloride 10 mEq 10 meq PO QDAY 04/22/25 04/22/25 H istory capsule,extended release Ejection fraction %: 60 Have you fallen in the past year?: No PFSH Medical History (HFpEF) heart failure with preserved ejection fraction Vitamin B12 deficiency Chronic back pain Hip fracture Persistent atrial fibrillation Nonrheumatic mitral (valve) insufficiency Chronic systolic (congestive) heart failure Pleural effusion CAP (community acquired pneumonia) Sepsis Hypotension Nonrheumatic mitral (valve) prolapse Hypothyroidism History of basal cell carcinoma Anxiety and depression A-fib History of cataract Heart murmur GERD (gastroesophageal reflux disease) IBS (irritable (more content not included)... Normal [facility] Chest PA and Lateralon 04-22 Chest PA and Lateral [facility] [address] [place] [address] Chest PA and Lateral MR#: [id number] Acct: [id number] Name: MARIBEL SIMPSON Rep #: [id number] : 1940 F 85 From: Iain Bajwa MD PCP: Dr. Ronni Sen, DO Status: REG CLI Study: Chest PA and Lateral Date of Exam: 04/22/25 Exam# [id number] Ordering Dr: Soraya Bagley PA PROCEDURE: CHEST PA AND LATERAL 04/22/2025 REASON FOR EXAM: PLEURAL EFFUSION TECHNIQUE: CHEST PA AND LATERAL COMPARISON: January 20, 2025, April 24, 2019 FINDINGS: The image is slightly overpenetrated. Hardware: None Heart: Top-normal size. Mediastinum: Enlargement of the main pulmonary arteries suggestive of pulmonary arterial hypertension Lungs: Bibasilar atelectasis and small effusions. This is stable to slightly decreased. Bones: Degenerative changes are identified within the thoracic spine. RAD/Chest PA and Lateral IMPRESSION: Bibasilar atelectasis and small effusions. Stable to slightly decreased. Top-normal heart size. Likely pulmonary arterial hypertension. Reading Location: [id number] CC: Dr. Ronni Sen DO; ARCHIE Thomas Seed Technician: Signed Normal [facility] Internal Medicine Office Vis iton 04-22-2025 Internal Medicine Office Visit [facility] [address] [place] [address] [place] [address] OFFICE VISIT Date of Service: 04/22/25 MR#: [id number] Acct: [id number] Name: MARIBEL SIMPSON Rep #: [id number] : 1940 Provider: Dr. Ronni ca DO Age/Sex: 85/F Location: [facility] Status: Signed Intake Vital Signs 10/08/24 11:18 04/22/25 09:42 04/22/25 11:19 Height 5 ft 7 in 5 ft 6.93 in 5 ft 6 in Weight: 105 lb BMI 16.9 BP 120/60 Blood Pressure Location Lt brachial Position Sitting Respiration 18 Pulse 82 Pulse Source Monitor Temp 96.2 F L Temp Source Temporal Pulse Oximetry (%) 97 Oxygen Delivery Method room air Intake Visit Reasons: 6 M FU Allergies milk Adverse Reaction (Mild, Verified 04/22/25 11:23) gas wheat Adverse Reaction (Mild, Verified 04/22/25 11:23) Abd cramps/diarrhea Medications ???Medication ???Instructions ???Recorded ???Confirmed ???Type multivitamin with minerals 1 tab PO DAILY supplement 02/24/19 04/22/25 History psyllium husk 0.4 gram capsule 0.4 g PO DAILY 01/17/22 04/22/25 H istory (Daily Fiber) cholecalciferol (vitamin D3) 25 25 mcg PO DAILY 03/13/22 04/22/25 History mcg (1,000 unit) tablet food supplemt, lactose-reduced 120 ml PO DAILY PRN supp 04/30/23 04/22/25 History 0.08 gram-1.5 kcal/mL oral liquid ascorbic acid (vitamin C) 500 mg 250 mg PO DAILY 10/29/23 04/22/25 History tablet mecobalamin (vitamin B12) 500 mcg 500 mcg PO DAILY 12/11/23 5 History chewable tablet ibuprofen 200 mg tablet 200 mg PO DAILY PRN fever or pain 10/08/24 04/22/25 History nystatin 100,000 unit/gram topical 1 applic topical DAILY PRN skin 10/08/24 04/22/25 History cream irritation quetiapine 100 mg tablet 50 mg (1/2 x 100 mg) PO QHS #60 04/22/25 Rx tabs polyethylene glycol 3350 17 17 g PO DAILY PRN constipation 04/22/25 History gram/dose oral powder (ClearLax) zinc acetate 50 mg (zinc) capsule 50 mg PO DAILY 01/20/25 04/22/25 History omeprazole 20 mg capsule,delayed 20 mg PO DAILY PRN 01/22/25 History release aspirin 81 mg tablet,delayed 81 mg PO DAILY #1 TAB 03/18/25 Rx release (Adult Aspirin Regimen) magnesium chloride 64 mg 64 mg PO QDAY 03/18/25 04/22/25 Hi story (magnesium chloride) tablet,delayed release vitamin E (dl, acetate) 180 mg 180 mg PO QDAY 03/18/25 04/22/25 H istory (400 unit) capsule fluoxetine 20 mg capsule (Prozac) 20 mg PO QDAY #90 caps 04/22/25 0 04/22/25 Rx furosemide 40 mg tablet 40 mg PO QAM #90 tabs 08/20/25 08/ 20/25 Rx hydrocodone-acetaminophen 5-325mg 1 tab PO QHS PRN pain 2 months #6 0 04/22/25 04/22/25 Rx 5mg-325mg tabs metoprolol tartrate 25 mg tablet 25 mg PO DAILY bp #90 tabs 2 5 04/22/25 Rx oxygen #1 ea 04/22/25 04/22/25 Rx potassium chloride 10 mEq 10 meq PO QDAY 04/22/25 04/22/25 H istory capsule,extended release Have you fallen in the past year?: Yes (She has fallen in the assisted care facility) [facility] Medical History Pleural effusion (HFpEF) heart failure with preserved [...] do you participate in: none HPI HPI Details: MARIBEL SIMPSON, is a 85 F who presents to the office today for a routine check, complicated by the fact that she was admitted to [facility] for several days with a diagnosis of congestive heart failure. She recently has seen cardiology and some tests were ordered. Her complaint now is that she is very short of breath at night and it is difficult for her to sleep, wondering if nocturnal O2 could be ordered. ROS Const Constitutional: No body ache, chills, excessive s (more content not included)... Normal [facility] BMP with eGFRon 04-13-2025 AGE 85 years Normal [facility] Comment on above: Performed By: #### 2 [id number] #### [facility],[address] [place] [address] 54435 Anion gap [Moles/Vol] 4 mmol/L Low 10 - 20 [facility] Comment on above: Performed By: #### 2 49902 #### [facility],[address] [place] [address] 63174 BMP with eGFR Normal [facility] Comment on above: Result Comment: BASI C METABOLIC PANEL Performed By: #### 2 99047 #### [facility],[address] [place] [address] 26882 Calcium [Mass/Vol] 8.8 mg/dL Normal 8.5 - 10.1 [facility] Comment on above: Performed By: #### 2 92447 #### [facility],[address] [place] [address] 90219 Chloride [Moles/Vol] 97 mmol/L Low 98 - 107 [facility] Comment on above: Performed By: #### 2 61618 #### [facility],[address] [place] [address] 66731 CO2 [Moles/Vol] 39.1 mmol/L High 21.0 - 32.0 [facility] Comment on above: Performed By: #### 2 86775 #### [facility],[address] [place] [address] 67804 Creatinine [Mass/Vol] 0.70 mg/dL Normal 0.55 - 1.02 [facility] Comment on above: Performed By: #### 2 98018 #### [facility],[address] [place] [address] 91854 GFR/1.73 sq M.predicted among non-blacks MDRD (S/P/Bld) [Vol rate/Area] mL/min/{1.73_m2} Normal 60 - 999 [facility] Comment on above: Performed By: #### 2 03853 #### [facility],[address] [place] [address] Result Comment: ACCO RDING TO THE NATIONAL KIDNEY DISEASE EDUCATION PROGRAM(NKDE), A NORMAL eGFR IS A VALUE GREATER THAN OR EQUAL TO 60 ML/MIN/1.73 SQ METERS. CHRONIC KIDNEY DISEASE: <60mL/MIN/1.73 SQ METERS KIDNEY FAILURE: <15mL/MIN/1.73 SQ METERS THIS TEST SHOULD ONLY BE USED FOR PATIENTS 18 YEARS OF AGE AND OLDER. Glucose [Mass/Vol] 86 mg/dL Normal 74 - 106 [facility] Comment on above: Performed By: #### 2 15527 #### [place] [address] Potassium [Moles/Vol] 3.7 mmol/L Normal 3.5 - 5.1 [facility] Comment on above: Performed By: #### 2 36780 #### [facility],[address] [place] [address] Sodium [Moles/Vol] 136 mmol/L Normal 136 - 145 [facility] Comment on above: Performed By: #### 2 65854 #### [facility],[address] [place], [place] [phone] Urea nitrogen [Mass/Vol] 13 mg/dL Normal 7 - 18 [facility] Comment on above: Performed By: #### 2 01853 #### [facility],[address] [place], [place] [address] CBC + DIFFon 04-13-2025 Baso # 0.03 x10EE3/UL Normal 0.00 - 0.10 [facility] Comment on above: Performed By: #### 2 39534 #### [facility],[address] [place] [address] 33046 Basophils/100 WBC (Bld) 0.4 % Normal 0.0 - 2.0 [facility] Comment on above: Performed By: #### 2 88610 #### [facility],[address] [place] [address] 06096 CBC + DIFF Normal [facility] Comment on above: Result Comment: CBC- COMPLETE BLOOD COUNT Performed By: #### 2 89205 #### [facility],[address] [place] [address] 63777 EO # 0.36 x10EE3/UL Normal 0.00 - 0.50 [facility] Comment on above: Performed By: #### 2 66387 #### [facility],[address] [place] [address] 33012 Eosinophils/100 WBC (Bld) 5.9 % Normal 0.0 - 7.0 [facility] Comment on above: Performed By: #### 2 63708 #### [facility],[address] [place] [address] 77951 Erythrocyte distribution width (RBC) [Ratio] 14.2 % Normal 12.0 - 15.6 [facility] Comment on above: Performed By: #### 2 63186 #### [facility],[address] [place] [address] 23613 Hematocrit (Bld) [Volume fraction] 41.5 % Normal 34.0 - 46.0 [facility] Comment on above: Performed By: #### 2 11993 #### [facility],[address] [place] [address] 08948 Hemoglobin (Bld) [Mass/Vol] 14.0 g/dL Normal 12.0 - 16.0 [facility] Comment on above: Performed By: #### 2 97034 #### [facility],[address] [place] [address] 58513 Lymph # 1.50 x10EE3/UL Normal 0.80 - 2.80 [facility] Comment on above: Performed By: #### 2 75500 #### [facility],[address] [place] [address] 37028 Lymphocytes/100 WBC (Bld) 24.8 % Normal 20.0 - 45.0 [facility] Comment on above: Performed By: #### 2 91046 #### [facility],[address] [place] [address] 58335 MANUAL DIFF N/A Normal [facility] Comment on above: Performed By: #### 2 14551 #### [facility],[address] [place] [address] MCH (RBC) [Entitic mass] 31 pg Normal 27 - 33 [facility] Comment on above: Performed By: #### 2 03803 #### [facility],[address] [place] [address] MCHC 34 X10 3 Normal 32 - 36 [facility] Comment on above: Performed By: #### 2 79890 #### [facility],[address] [place] [address] MCV (RBC) [Entitic vol] 93 fL Normal 80 - 99 [facility] Comment on above: Performed By: #### 2 67303 #### [facility],[address] [place] [address] Isanti # 0.71 x10EE3/UL Normal 0.20 - 1.00 [facility] Comment on above: Performed By: #### 2 02129 #### [facility],[address] [place] [address] MONOS % 11.7 % High 0.0 - 10.0 [facility] Comment on above: Performed By: #### 2 21559 #### [facility],[address] [place] [address] 83348 Morphology Rio (Bld) [Interp] N/A Normal [facility] Comment on above: Performed By: #### 2 63067 #### [facility],[address] [place] [address] Neut # 3.47 x10EE3/UL Normal 1.50 - 7.10 [facility] Comment on above: Performed By: #### 2 43059 #### [facility],[address] [place] [address] 46252 Neutrophils/100 WBC (Bld) 57.2 % Normal 46.0 - 76.0 [facility] Comment on above: Performed By: #### 2 86025 #### [facility],[address] [place] [address] 63099 PLATELET 262 x10EE3/UL Normal 150 - 450 [facility] Comment on above: Performed By: #### 2 64389 #### [facility],[address] [place] [address] 69240 Platelet mean volume (Bld) [Entitic vol] 7.8 fL Normal 6.6 - 10.5 [facility] Comment on above: Result Comment: AUTO MATED DIFFERENTIAL Performed By: #### 2 30471 #### [facility],[address] [place] [address] 81250 RBC 4.47 x 10EE6/UL Normal 4.10 - 5.30 [facility] Comment on above: Performed By: #### 2 75768 #### [facility],[address] [place] [address] 65726 WBC 6.1 x 10EE3/UL Normal 4.5 - 10.8 [facility] Comment on above: Performed By: #### 2 06463 #### [facility],[address] [place] [address] 26285 NT-proBNPon 04-13-2025 Natriuretic peptide B (Bld) [Mass/Vol] 1564 pg/mL High 0 - 450 [facility] Comment on above: Performed By: #### 2 23230 #### [facility],[address] [place] [address] 70359 BMP with eGFRon 04-12-2025 AGE 85 years Normal [facility] Comment on above: Performed By: #### 2 40445 #### [facility],[address] [place] [address] 95764 Anion gap [Moles/Vol] 6 mmol/L Low 10 - 20 [facility] Comment on above: Performed By: #### 2 00016 #### [facility],[address] [place] [address] 49734 BMP with eGFR Normal [facility] Comment on above: Result Comment: BASI C METABOLIC PANEL Performed By: #### 2 86485 #### [facility],[address] [place] [address] 55377 Calcium [Mass/Vol] 8.3 mg/dL Low 8.5 - 10.1 [facility] Comment on above: Performed By: #### 2 06989 #### [facility],[address] [place] [address] 87836 Chloride [Moles/Vol] 96 mmol/L Low 98 - 107 [facility] Comment on above: Performed By: #### 2 90326 #### [facility],[address] [place] [address] 07622 CO2 [Moles/Vol] 35.1 mmol/L High 21.0 - 32.0 [facility] Comment on above: Performed By: #### 2 68549 #### [facility],[address] [place] [address] 47120 Creatinine [Mass/Vol] 0.77 mg/dL Normal 0.55 - 1.02 [facility] Comment on above: Performed By: #### 2 60107 #### [facility],[address] [place] [address] 55665 GFR/1.73 sq M.predicted among non-blacks MDRD (S/P/Bld) [Vol rate/Area] mL/min/{1.73_m2} Normal 60 - 999 [facility] Comment on above: Performed By: #### 2 65020 #### [facility],[address] [place] [address] 69434 Result Comment: ACCO RDING TO THE NATIONAL KIDNEY DISEASE EDUCATION PROGRAM(NKDE), A NORMAL eGFR IS A VALUE GREATER THAN OR EQUAL TO 60 ML/MIN/1.73 SQ METERS. CHRONIC KIDNEY DISEASE: <60mL/MIN/1.73 SQ METERS KIDNEY FAILURE: <15mL/MIN/1.73 SQ METERS THIS TEST SHOULD ONLY BE USED FOR PATIENTS 18 YEARS OF AGE AND OLDER. Glucose [Mass/Vol] 81 mg/dL Normal 74 - 106 [facility] Comment on above: Performed By: #### 2 91847 #### [facility],[address] [place] [address] 14425 Potassium [Moles/Vol] 3.2 mmol/L Low 3.5 - 5.1 [facility] Comment on above: Performed By: #### 2 44164 #### [facility],[address] [place] [address] 53238 Sodium [Moles/Vol] 134 mmol/L Low 136 - 145 [facility] Comment on above: Performed By: #### 2 68516 #### [facility],[address] [place] [address] 86277 Urea nitrogen [Mass/Vol] 19 mg/dL High 7 - 18 [facility] Comment on above: Performed By: #### 2 60515 #### [facility],[address] [place] [address] 89010 CBC + DIFFon 04-12-2025 Baso # 0.02 x10EE3/UL Normal 0.00 - 0.10 [facility] Comment on above: Performed By: #### 2 45871 #### [facility],[address] [place] [address] 97408 Basophils/100 WBC (Bld) 0.2 % Normal 0.0 - 2.0 [facility] Comment on above: Performed By: #### 2 95720 #### [facility],[address] [place] [address] 34703 CBC + DIFF Normal [facility] Comment on above: Result Comment: CBC- COMPLETE BLOOD COUNT Performed By: #### 2 15351 #### [facility],[address] [place] [address] 29254 EO # 0.29 x10EE3/UL Normal 0.00 - 0.50 [facility] Comment on above: Performed By: #### 2 46077 #### [facility],[address] [place] [address] 28719 Eosinophils/100 WBC (Bld) 4.5 % Normal 0.0 - 7.0 [facility] Comment on above: Performed By: #### 2 23254 #### [facility],[address] [place] [address] Erythrocyte distribution width (RBC) [Ratio] 14.3 % Normal 12.0 - 15.6 [facility] Comment on above: Performed By: #### 2 28604 #### [facility],[address] [place] [address] Hematocrit (Bld) [Volume fraction] 36.8 % Normal 34.0 - 46.0 [facility] Comment on above: Performed By: #### 2 73836 #### [facility],[address] [place] [address] Hemoglobin (Bld) [Mass/Vol] 12.8 g/dL Normal 12.0 - 16.0 [facility] Comment on above: Performed By: #### 2 23916 #### [facility],[address] [place] [address] 80319 Lymph # 2.14 x10EE3/UL Normal 0.80 - 2.80 [facility] Comment on above: Performed By: #### 2 47206 #### [facility],[address] [place] [address] 71278 Lymphocytes/100 WBC (Bld) 32.7 % Normal 20.0 - 45.0 [facility] Comment on above: Performed By: #### 2 68399 #### [facility],[address] [place], [place] [phone] MANUAL DIFF N/A Normal [facility] Comment on above: Performed By: #### 2 46748 #### [facility],[address] [place] [address] 88503 MCH (RBC) [Entitic mass] 33 pg Normal 27 - 33 [facility] Comment on above: Performed By: #### 2 60515 #### [facility],[address] [place] [address] MCHC 35 X10 3 Normal 32 - 36 [facility] Comment on above: Performed By: #### 2 25373 #### [facility],[address] [place] [address] 07876 MCV (RBC) [Entitic vol] 94 fL Normal 80 - 99 [facility] Comment on above: Performed By: #### 2 90226 #### [facility],[address] [place] [address] Isanti # 0.61 x10EE3/UL Normal 0.20 - 1.00 [facility] Comment on above: Performed By: #### 2 89994 #### [facility],[address] [place] [address] 15530 MONOS % 9.3 % Normal 0.0 - 10.0 [facility] Comment on above: Performed By: #### 2 02550 #### [facility],[address] [place] [address] 34146 Morphology Rio (Bld) [Interp] N/A Normal [facility] Comment on above: Performed By: #### 2 20545 #### [facility],[address] [place] [address] 60405 Neut # 3.50 x10EE3/UL Normal 1.50 - 7.10 [facility] Comment on above: Performed By: #### 2 81942 #### [facility],[address] [place], [place] [phone] Neutrophils/100 WBC (Bld) 53.4 % Normal 46.0 - 76.0 [facility] Comment on above: Performed By: #### 2 46291 #### [facility],[address] [place] [address] 98506 PLATELET 230 x10EE3/UL Normal 150 - 450 [facility] Comment on above: Performed By: #### 2 89518 #### [facility],[address] [place] [address] 07440 Platelet mean volume (Bld) [Entitic vol] 8.4 fL Normal 6.6 - 10.5 [facility] Comment on above: Result Comment: AUTO MATED DIFFERENTIAL Performed By: #### 2 82337 #### [facility],[address] [place] [address] 49560 RBC 3.93 x 10EE6/UL Low 4.10 - 5.30 [facility] Comment on above: Performed By: #### 2 92688 #### [facility],[address] [place], [place] [address] WBC 6.6 x 10EE3/UL Normal 4.5 - 10.8 [facility] Comment on above: Performed By: #### 2 57391 #### [facility],[address] [place] [address] NT-proBNPon 04-12-2025 Natriuretic peptide B (Bld) [Mass/Vol] 3412 pg/mL High 0 - 450 [facility] Comment on above: Performed By: #### 2 13186 #### [facility],[address] [place] [address] 36668 BMP with eGFRon 04-11-2025 AGE 85 years Normal [facility] Comment on above: Performed By: #### 2 25558 #### [facility],[address] [place] [address] 07893 Anion gap [Moles/Vol] 7 mmol/L Low 10 - 20 [facility] Comment on above: Performed By: #### 2 57550 #### [facility],[address] [place], [place] [phone] BMP with eGFR Normal [facility] Comment on above: Result Comment: BASI C METABOLIC PANEL Performed By: #### 2 51483 #### [facility],[address] [place], [place] [phone] Calcium [Mass/Vol] 8.4 mg/dL Low 8.5 - 10.1 [facility] Comment on above: Performed By: #### 2 76249 #### [facility],[address] [place] [address] Chloride [Moles/Vol] 96 mmol/L Low 98 - 107 [facility] Comment on above: Performed By: #### 2 65710 #### [facility],[address] [place], [place] [phone] CO2 [Moles/Vol] 32.0 mmol/L Normal 21.0 - 32.0 [facility] Comment on above: Performed By: #### 2 53044 #### [facility],[address] [place], [place] [phone] Creatinine [Mass/Vol] 0.98 mg/dL Normal 0.55 - 1.02 [facility] Comment on above: Performed By: #### 2 05736 #### [facility],[address] [place], [place] [phone] eGFR 54 ML/MINUTE Low 60 - 999 [facility] Comment on above: Performed By: #### 2 31346 #### [facility],[address] [place] [address] 57778 GFR/1.73 sq M.predicted among non-blacks MDRD (S/P/Bld) [Vol rate/Area] mL/min/{1.73_m2} Normal 60 - 999 [facility] Comment on above: Result Comment: ACCO RDING TO THE NATIONAL KIDNEY DISEASE EDUCATION PROGRAM(NKDE), A NORMAL eGFR IS A VALUE GREATER THAN OR EQUAL TO 60 ML/MIN/1.73 SQ METERS. CHRONIC KIDNEY DISEASE: <60mL/MIN/1.73 SQ METERS KIDNEY FAILURE: <15mL/MIN/1.73 SQ METERS THIS TEST SHOULD ONLY BE USED FOR PATIENTS 18 YEARS OF AGE AND OLDER. Performed By: #### 2 73348 #### [facility],[address] [place] [address] 34681 Glucose [Mass/Vol] 87 mg/dL Normal 74 - 106 [facility] Comment on above: Performed By: #### 2 66982 #### [facility],[address] [place] [address] 44105 Potassium [Moles/Vol] 3.7 mmol/L Normal 3.5 - 5.1 [facility] Comment on above: Performed By: #### 2 68028 #### [place] [phone] Sodium [Moles/Vol] 131 mmol/L Low 136 - 145 [facility] Comment on above: Performed By: #### 2 06698 #### [facility],[address] [place], [place] [phone] Urea nitrogen [Mass/Vol] 16 mg/dL Normal 7 - 18 [facility] Comment on above: Performed By: #### 2 34173 #### [address] [address] CBC + DIFFon 04-11-2025 Baso # 0.02 x10EE3/UL Normal 0.00 - 0.10 [facility] Comment on above: Performed By: #### 2 96766 #### [address] [address] Basophils/100 WBC (Bld) 0.2 % Normal 0.0 - 2.0 [facility] Comment on above: Performed By: #### 2 71566 #### [facility],[address] [place] [address] 22921 CBC + DIFF Normal [facility] Comment on above: Result Comment: CBC- COMPLETE BLOOD COUNT Performed By: #### 2 14116 #### [address],[place] [address] EO # 0.19 x10EE3/UL Normal 0.00 - 0.50 [facility] Comment on above: Performed By: #### 2 32608 #### [facility],[address] [place] [address] 15288 Eosinophils/100 WBC (Bld) 2.3 % Normal 0.0 - 7.0 [facility] Comment on above: Performed By: #### 2 18651 #### [facility],[address] [place] [address] Erythrocyte distribution width (RBC) [Ratio] 14.3 % Normal 12.0 - 15.6 [facility] Comment on above: Performed By: #### 2 66955 #### [facility],[address] [place] [address] Hematocrit (Bld) [Volume fraction] 41.6 % Normal 34.0 - 46.0 [facility] Comment on above: Performed By: #### 2 19152 #### [facility],[address] [place], [place] [phone] Hemoglobin (Bld) [Mass/Vol] 14.0 g/dL Normal 12.0 - 16.0 [facility] Comment on above: Performed By: #### 2 14199 #### [facility],[address] [place] [address] 89329 Lymph # 1.96 x10EE3/UL Normal 0.80 - 2.80 [facility] Comment on above: Performed By: #### 2 80431 #### [facility],[address] [place] [address] 97046 Lymphocytes/100 WBC (Bld) 23.1 % Normal 20.0 - 45.0 [facility] Comment on above: Performed By: #### 2 83642 #### [facility],[address] [place] [address] 01569 MANUAL DIFF N/A Normal [facility] Comment on above: Performed By: #### 2 95685 #### [facility],[address] [place] [address] MCH (RBC) [Entitic mass] 31 pg Normal 27 - 33 [facility] Comment on above: Performed By: #### 2 15484 #### [facility],[address] [place] [address] MCHC 34 X10 3 Normal 32 - 36 [facility] Comment on above: Performed By: #### 2 84160 #### [facility],[address] [place] [address] MCV (RBC) [Entitic vol] 93 fL Normal 80 - 99 [facility] Comment on above: Performed By: #### 2 28412 #### [facility],[address] [place] [address] Is[place] # 0.91 x10EE3/UL Normal 0.20 - 1.00 [facility] Comment on above: Performed By: #### 2 58122 #### [facility],[address] [place], [place] [phone] MONOS % 10.7 % High 0.0 - 10.0 [facility] Comment on above: Performed By: #### 2 84316 #### [facility],[address] [place], [place] [phone] Morphology Rio (Bld) [Interp] N/A Normal [facility] Comment on above: Performed By: #### 2 16989 #### [facility],[address] [place] [address] Neut # 5.39 x10EE3/UL Normal 1.50 - 7.10 [facility] Comment on above: Performed By: #### 2 79920 #### [facility],[address] [place] [address] Neutrophils/100 WBC (Bld) 63.6 % Normal 46.0 - 76.0 [facility] Comment on above: Performed By: #### 2 51327 #### [facility],[address] [place], [place] [id number] PLATELET 274 x10EE3/UL Normal 150 - 450 [facility] Comment on above: Performed By: #### 2 22867 #### [facility],[address] [place] [address] Platelet mean volume (Bld) [Entitic vol] 8.0 fL Normal 6.6 - 10.5 [facility] Comment on above: Result Comment: AUTO MATED DIFFERENTIAL Performed By: #### 2 26297 #### [facility],[address] [place] [address] RBC 4.49 x 10EE6/UL Normal 4.10 - 5.30 [facility] Comment on above: Performed By: #### 2 77677 #### [place] [address] WBC 8.5 x 10EE3/UL Normal 4.5 - 10.8 [facility] Comment on above: Performed By: #### 2 53227 #### [facility],[address] [place] [address] TSHon 04-11-2025 TSH Qn 7.07 m[IU]/L High 0.35 - 3.74 [facility] Comment on above: Performed By: #### 2 27334 #### [facility],[address] [place] [address] CBC + DIFFon 04-10-2025 Baso # 0.02 x10EE3/UL Normal 0.00 - 0.10 [facility] Comment on above: Performed By: #### 2 37643 #### [facility],[address] [place] [address] Basophils/100 WBC (Bld) 0.4 % Normal 0.0 - 2.0 [facility] Comment on above: Performed By: #### 2 17021 #### [facility],[address] [place] [address] CBC + DIFF Normal [facility] Comment on above: Result Comment: CBC- COMPLETE BLOOD COUNT Performed By: #### 2 65654 #### [facility],[address] [place] [address] EO # 0.03 x10EE3/UL Normal 0.00 - 0.50 [facility] Comment on above: Performed By: #### 2 31386 #### [facility],[address] [place] [address] Eosinophils/100 WBC (Bld) 0.4 % Normal 0.0 - 7.0 [facility] Comment on above: Performed By: #### 2 71658 #### [facility],[address] [place] [address] Erythrocyte distribution width (RBC) [Ratio] 14.4 % Normal 12.0 - 15.6 [facility] Comment on above: Performed By: #### 2 53341 #### [facility],[address] [place] [address] Hematocrit (Bld) [Volume fraction] 41.0 % Normal 34.0 - 46.0 [facility] Comment on above: Performed By: #### 2 83946 #### [facility],[address] [place] [address] Hemoglobin (Bld) [Mass/Vol] 14.0 g/dL Normal 12.0 - 16.0 [facility] Comment on above: Performed By: #### 2 57264 #### [facility],[address] [place] [address] Lymph # 1.12 x10EE3/UL Normal 0.80 - 2.80 [facility] Comment on above: Performed By: #### 2 72587 #### [facility],[address] [place], [place] [id number] Lymphocytes/100 WBC (Bld) 16.2 % Low 20.0 - 45.0 [facility] Comment on above: Performed By: #### 2 64930 #### [facility],[address] [place] [address] MANUAL DIFF N/A Normal [facility] Comment on above: Performed By: #### 2 50739 #### [facility],[address] [place] [address] MCH (RBC) [Entitic mass] 31 pg Normal 27 - 33 [facility] Comment on above: Performed By: #### 2 94608 #### [facility],[address] [place] [address] MCHC 34 X10 3 Normal 32 - 36 [facility] Comment on above: Performed By: #### 2 98836 #### [facility],[address] [place] [address] MCV (RBC) [Entitic vol] 92 fL Normal 80 - 99 [facility] Comment on above: Performed By: #### 2 10384 #### [facility],[address] [place] [address] [place] # 0.35 x10EE3/UL Normal 0.20 - 1.00 [facility] Comment on above: Performed By: #### 2 94391 #### [facility],[address] [place] [address] MONOS % 5.1 % Normal 0.0 - 10.0 [facility] Comment on above: Performed By: #### 2 98131 #### [facility],[address] [place] [address] Morphology Rio (Bld) [Interp] N/A Normal [facility] Comment on above: Performed By: #### 2 24363 #### [facility],[address] [place] [address] Neut # 5.38 x10EE3/UL Normal 1.50 - 7.10 [facility] Comment on above: Performed By: #### 2 66499 #### [facility],[address] [place] [address] Neutrophils/100 WBC (Bld) 77.9 % High 46.0 - 76.0 [facility] Comment on above: Performed By: #### 2 70352 #### [facility],[address] [place] [address] PLATELET 278 x10EE3/UL Normal 150 - 450 [facility] Comment on above: Performed By: #### 2 72865 #### [facility],[address] [place] [address]49 Platelet mean volume (Bld) [Entitic vol] 8.5 fL Normal 6.6 - 10.5 [facility] Comment on above: Result Comment: AUTO MATED DIFFERENTIAL Performed By: #### 2 41839 #### [facility],[address] [place] [address] RBC 4.45 x 10EE6/UL Normal 4.10 - 5.30 [facility] Comment on above: Performed By: #### 2 23576 #### [facility],[address] [place] [address] WBC 6.9 x 10EE3/UL Normal 4.5 - 10.8 [facility] Comment on above: Performed By: #### 2 85571 #### [facility],[address] [place] [address] CHEST 1 VIEWon 04-10-2025 CHEST 1 VIEW [place] [address] Patient: MARIBEL SIMPSON Phone#: : 1940 Age: 85 Gender: F Pt. Type: ER Account: [id number] Location: [facility] Ordering: DR. ARYA MOSER Exam Date: 04/10/2025/15:16 Family Phys: Charge Code: [id number] Physician: [place] Order #: [id number] Dose#: PROCEDURE: X-RAY CHEST 1 VIEW COMPARISON: None. INDICATIONS: Shortness of Breath. FINDINGS: LUNGS: Chronic interstitial changes are present. VASCULATURE: Normal. Unremarkable pulmonary vasculature. CARDIAC: Normal. No cardiac silhouette abnormality or cardiomegaly. MEDIASTINUM: Normal. No visible mass or adenopathy. PLEURA: Bilateral pleural effusions are present greater on the right. Right-sided effusion is moderate in size. BONES: Normal. No fracture or visible bony lesion. OTHER: Negative. CONCLUSION: 1. Bilateral pleural effusions are present larger on the right. Dictated by: Pippa Diaz MD on 04/10/2025 at 15:46 Approved by: Pippa Diaz MD on 04/10/2025 at 15:47 Normal [facility] CMP with eGFRon 04-10-2025 AGE 85 years Normal [facility] Comment on above: Performed By: #### 2 59488 #### [address] [address] Albumin [Mass/Vol] 3.4 g/dL Normal 3.4 - 5.0 [facility] Comment on above: Performed By: #### 2 68354 #### [facility],[address] [place] [address] Albumin/Globulin [Mass ratio] 0.9 {ratio} Normal 0.9 - 1.6 [facility] Comment on above: Performed By: #### 2 68588 #### [facility],[address] [place] [address] 34648 ALK PHOS 78 U/L Normal 46 - 116 [facility] Comment on above: Performed By: #### 2 51916 #### [facility],[address] [place] [address] 39797 ALT [Catalytic activity/Vol] 35 U/L Normal 16 - 63 [facility] Comment on above: Performed By: #### 2 68068 #### [facility],[address] [place] [address] 01258 Anion gap [Moles/Vol] 13 mmol/L Normal 10 - 20 [facility] Comment on above: Performed By: #### 2 35399 #### [facility],[address] [place] [address] 88406 AST [Catalytic activity/Vol] 41 U/L High 13 - 39 [facility] Comment on above: Performed By: #### 2 83041 #### [facility],[address] [place] [address] 63700 B/C RATIO 23 ratio Normal 0 - 30 [facility] Comment on above: Performed By: #### 2 52406 #### [facility],[address] [place] [address] 69588 Bilirubin [Mass/Vol] 1.1 mg/dL High 0.2 - 1.0 [facility] Comment on above: Performed By: #### 2 36568 #### [facility],[address] [place] [address] 80956 Calcium [Mass/Vol] 9.2 mg/dL Normal 8.5 - 10.1 [facility] Comment on above: Performed By: #### 2 82086 #### [facility],[address] [place] [address] 73331 Chloride [Moles/Vol] 94 mmol/L Low 98 - 107 [facility] Comment on above: Performed By: #### 2 49820 #### [facility],[address] [place] [address] 54412 CMP with eGFR Normal [facility] Comment on above: Result Comment: COMP REHENSIVE METABOLIC PANEL Performed By: #### 2 89899 #### [facility],[address] [place] [address] 14946 CO2 [Moles/Vol] 26.6 mmol/L Normal 21.0 - 32.0 [facility] Comment on above: Performed By: #### 2 98195 #### [facility],[address] [place] [address] 63235 Creatinine [Mass/Vol] 0.90 mg/dL Normal 0.55 - 1.02 [facility] Comment on above: Performed By: #### 2 75514 #### [facility],[address] [place] [address] 10709 eGFR 60 ML/MINUTE Normal 60 - 999 [facility] Comment on above: Performed By: #### 2 44159 #### [facility],[address] [place] [address]239 GFR/1.73 sq M.predicted among non-blacks MDRD (S/P/Bld) [Vol rate/Area] mL/min/{1.73_m2} Normal 60 - 999 [facility] Comment on above: Result Comment: ACCO RDING TO THE NATIONAL KIDNEY DISEASE EDUCATION PROGRAM(NKDE), A NORMAL eGFR IS A VALUE GREATER THAN OR EQUAL TO 60 ML/MIN/1.73 SQ METERS. CHRONIC KIDNEY DISEASE: <60mL/MIN/1.73 SQ METERS KIDNEY FAILURE: <15mL/MIN/1.73 SQ METERS THIS TEST SHOULD ONLY BE USED FOR PATIENTS 18 YEARS OF AGE AND OLDER. Performed By: #### 2 54621 #### [facility],[address] [place] [address] 49748 Globulin (S) [Mass/Vol] 3.8 g/dL Normal 1.5 - 3.8 [facility] Comment on above: Performed By: #### 2 50089 #### [facility],[address] [place] [address] 92429 Glucose [Mass/Vol] 156 mg/dL High 74 - 106 [facility] Comment on above: Performed By: #### 2 79433 #### [facility],[address] [place] [address] 74275 Potassium [Moles/Vol] 4.5 mmol/L Normal 3.5 - 5.1 [facility] Comment on above: Performed By: #### 2 83469 #### [facility],[address] [place] [address] 17353 Protein [Mass/Vol] 7.2 g/dL Normal 6.4 - 8.2 [facility] Comment on above: Performed By: #### 2 66906 #### [facility],[address] [place] [address] 99496 Sodium [Moles/Vol] 129 mmol/L Low 136 - 145 [facility] Comment on above: Performed By: #### 2 84218 #### [facility],[address] [place] [address] 37183 Urea nitrogen [Mass/Vol] 21 mg/dL High 7 - 18 [facility] Comment on above: Performed By: #### 2 38336 #### [facility],[address] [place] [address] 96446 CORONAVIRUS (SARS) ANTIGEN T ESTon 04-10-2025 EXTERNAL QC DONE? YES Normal [facility] Comment on above: Performed By: #### 2 96726 #### [facility],[address] [place] [address] INTERNAL CONTROL PASS Normal [facility] Comment on above: Performed By: #### 2 42971 #### [facility],[address] [place] [address] 10435 SARS ANTIGEN Negative Normal NORMAL: NEGATIVE [facility] Comment on above: Performed By: #### 2 77708 #### [facility],[address] [place] [address] 95636 SEND TO ? YES Normal [facility] Comment on above: Result Comment: SARS -CoV-2 THIS TEST IS BEING USED UNDER THE FDA EUA PROCEDURE. THIS ASSAY HAS BEEN VALIDATED AT [facility] FOR USE WITH NASAL AND NASOPHARYNGEAL SWAB SPECIMENS. INTERPRETIVE DATA TEST RESULTS SHOULD ALWAYS BE CONSIDERED IN THE CONTEXT OF CLINICAL OBSERVATIONS AND EPIDEMIOLOGICAL DATA IN MAKING FINAL DIAGNOSIS AND PATIENT MANAGEMENT DECISIONS. PATIENT MANAGEMENT SHOULD FOLLOW CURRENT CDC GUIDELINES. THE LANA SARS ANTIGEN TEREZA DOES NOT DIFFERENTIATE BETWEEN SARS-CoV & SARS-CoV-2. A POSITIVE TEST RESULT INDICATES THE PRESENCE OF SARS-CoV-2 NUCLEOCAPSID PROTEIN ANTIGEN, AND THE PATIENT IS INFECTED WITH THE VIRUS AND PRESUMED TO BE CONTAGIOUS. A NEGATIVE TEST RESULT FOR THIS TEST MEANS THAT SARS-CoV-2 NUCLEOCAPSID PROTEIN ANTIGEN WAS NOT PRESENT IN THE SPECIMEN ABOVE THE LIMIT OF DETECTION. HOWEVER, A NEGATIVE RESULT DOES NOT RULE OUT COVID-19 AND SHOULD NOT BE USED THE SOLE BASIS FOR TREATMENT OR PATIENT MANAGEMENT DECISIONS. A NEGATIVE RESULT DOES NOT EXCLUDE THE POSSIBILITY OF COVID-19. NEGATIVE RESULTS, FROM PATIENTS WITH SYMPTOM ONSET BEYOND FIVE DAYS, SHOULD BE TREATED PRESUMPTIVE AND CONFIRMATION WITH A MOLECULAR ASSAY, IF NECESSARY, FOR PATIENT MANAGEMENT, MAY BE PERFORMED. WHEN DIAGNOSTIC TESTING IS NEGATIVE, THE POSSIBLILTY OF A FALSE NEGATIVE RESULT SHOULD BE CONSIDERED IN THE CONTEXT OF A PATIENT'S RECENT EXPOSURES AND THE PRESENCE OF CLINICAL SIGNS AND SYMPTOMS CONSISTENT WITH COVID-19. THE POSSIBILITY OF A FALSE NEGATIVE RESULT SHOULD ESPECIALLY BE CONSIDERED IF THE PATIENT'S RECENT EXPOSURES OR CLINICAL PRESENTATION INDICATE THAT COVID-19 IS LIKELY, AND DIAGNOSTIC TESTS FOR OTHER CAUSES OF ILLNESS (e.g., OTHER RESPIRATORY ILLNESS) ARE NEGATIVE. IF COVID-19 IS STILL SUSPECTED BASED ON EXPOSURE HISTORY TOGETHER WITH OTHER CLINICAL FINDINGS, RE-TESTING SHOULD BE CONSIDERED BY HEALTHCARE PROVIDERS IN CONSULTATION WITH PUBLIC HEALTH AUTHORITIES. Performed By: #### 2 09868 #### [place] [address] CT ABDOMEN/PELVIS [facility] 04-10 CT ABDOMEN/PELVIS [place] [address] Patient: MARIBEL SIMPSON Phone#: : 1940 Age: 85 Gender: F Pt. Type: ER Account: [id number] Location: [facility] Exam Date: 04/10/2025/15:02 Family Phys: Charge Code: [id number] Physician: [place] Order #: [id number] Dose#: [id number] PROCEDURE: CT ABDOMEN/PELVIS WITHOUT CONTRAST COMPARISON: None. INDICATIONS: Abdominal tenderness. TECHNIQUE: CT images were created without intravenous contrast. All CT scans at this facility use dose modulation, iterative reconstruction, and/or weight based dosing when appropriate to reduce radiation dose to as low as reasonably achievable. IV CONTRAST: No IV contrast used,0ml TOTAL DOSE: 4.5 CTDIvol(mGy) FINDINGS: LIVER: Normal. No enlargement, atrophy, abnormal density, or significant focal lesion. BILIARY: Normal. No visible dilatation or calcification. PANCREAS: Normal. No lesion, fluid collection, ductal dilatation, or atrophy. SPLEEN: Normal. No enlargement or focal lesion. KIDNEYS: Normal. No mass, obstruction, or calcification. ADRENALS: Normal. No mass or enlargement. AORTA/VASCULAR: Normal. No aneurysm. RETROPERITONEUM: Normal. No mass or adenopathy. BOWEL/MESENTERY: Sigmoid diverticula are present without inflammatory change. There is no evidence of obstructive bowel changes. There is small amount of free fluid in the pelvis. ABDOMINAL WALL: Normal. No mass or hernia. URINARY BLADDER: Normal. No visible focal wall thickening, lesion, or calculus. PELVIC NODES: Normal. No adenopathy. PELVIC ORGANS: The uterus is absent. BONES: Moderately severe degenerative changes of the spine are present. There is curvature of the lumbar spine to the left. LUNG BASES: Cardiomegaly. Coronary artery calcification is present. There is moderate right-sided pleural effusion. There is a small left pleural effusion. OTHER: Negative. Continued Report - Page 2 of 2 Patient: MARIBEL SIMPSON Phone#: : 1940 Age: 85 Gender: F Pt. Type: ER Account: [id number] Location: 2 Ordering[facility] Exam Date: 04/10/2025/15:02 Family Phys: Charge Code: [id number] Physician: [place] Order #: [id number] Dose#: 4.5 CONCLUSION: 1. Cardiomegaly. 2. Moderate right pleural effusion. Small left pleural effusion. 3. Small amount of free fluid is present in the pelvis. Dictated by: Pippa Diaz MD on 04/10/2025 at 16:13 Approved by: Pippa Diaz MD on 04/10/2025 at 16:22 Normal [facility] INFLUENZA VIRUS RAPID A/Bon 04-10-2025 INFLUENZA VIRUS RAPID A/B INFLUENZA A NEGATIVE INFLUENZA B NEGATIVE INTERNAL NEG QC PASS INTERNAL POS QC PASS EXTERNAL QC DONE? YES SEND TO IC? YES A NEGATIVE TEST RESULT DOES NOT EXCLUDE INFECTION WITH INFLUENZA A OR B. THEREFORE, THE RESULTS OBTAINED FROM THIS FLU TEST SHOULD BE USED IN CONJUCTION WITH CLINICAL FINDINGS TO MAKE AN ACCURATE DIAGNOSIS. A POSITIVE RESULT DOES NOT RULE OUT CO-INFECTIONS WITH OTHER PATHOGENS OR IDENTIFY ANY SPECIFIC INFLUENZA A VIRUS SUBTYPE.CO-INFECTION WITH INFLUENZA A AND B IS RARE. IT IS RECOMMENDED THAT DUAL POSITIVE RESULTS BE CONFIRMED BY VIRAL CULTURE OR AN FDA-CLEARED INFLUENZA A AND B MOLECULAR ASSAY. INDIVIDUALS WHO HAVE RECEIVED NASALLY ADMINISTERED INFLUENZA A VACCINE MAY TEST POSITIVE IN COMMERCIALLY AVAILABLE INFLUENZA RAPID DIAGNOSTIC TESTS FOR UP TO THREE DAYS. RESULT CRITICAL? NO Normal [facility] Comment on above: Performed By: #### 2 13255 #### [address] [address] LACTATEon 04-10-2025 Lactate [Moles/Vol] 1.4 mmol/L Normal 0.4 - 2.0 [facility] Comment on above: Performed By: #### 2 96670 #### [address] [address] LIPASEon 04-10-2025 Lipase [Catalytic activity/Vol] 14.0 U/L Low 15.0 - 78.0 [facility] Comment on above: Result Comment: *PLE ASE NOTE THAT RANGES FOR LIPASE HAVE CHANGED OF 08/31/23 DUE TO AN ASSAY UPDATE BY THE ASSOCIATE SOFTWARE APPLICATION ENGINEER.THE NEW ASSAY RANGE IS 6-250 U/L, WITH A REFERENCE RANGE OF 16-77 U/L. Performed By: #### 2 16044 #### [address] [address] NT-proBNPon 04-10-2025 Natriuretic peptide B (Bld) [Mass/Vol] 7523 pg/mL High 0 - 450 [facility] Comment on above: Performed By: #### 2 90461 #### [address] [address] TROPONINon 04-10-2025 HS TROPONIN 17.1 pg/mL Normal 0.0 - 51.4 [facility] Comment on above: Performed By: #### 2 87178 #### [address] [address] URINALYSISon 04-10-2025 Amorphous NONE Normal [facility] Comment on above: Performed By: #### 2 78426 #### [facility],[address] [place] [address] 93008 Bacteria TRACE Normal [facility] Comment on above: Performed By: #### 2 56762 #### [facility],[address] [place] [address] 48470 Bilirubin Ql (U) Negative Normal NORMAL: NEGATIVE [facility] Comment on above: Performed By: #### 2 35210 #### [facility],[address] [place] [address] 01274 Casts NONE Normal [facility] Comment on above: Performed By: #### 2 49743 #### [facility],[address] [place] [address] 59521 Clarity (U) clear Normal NORMAL: CLEAR [facility] Comment on above: Performed By: #### 2 22388 #### [facility],[address] [place] [address] 04037 Color (U) yellow Normal NORMAL: YELLOW [facility] Comment on above: Performed By: #### 2 41085 #### [facility],[address] [place] [address] 30083 Crystals LM Nom (Urine sed) NONE Normal [facility] Comment on above: Performed By: #### 2 64072 #### [facility],[address] [place] [address] 29735 Epi Cells NONE Normal [facility] Comment on above: Performed By: #### 2 33860 #### [facility],[address] [place] [address] 16976 Glucose Ql (U) NORM Normal NORMAL: NORMAL [facility] Comment on above: Performed By: #### 2 19304 #### [facility],[address] [place] [address] 75601 Hemoglobin Ql (U) Negative Normal NORMAL: NEGATIVE [facility] Comment on above: Performed By: #### 2 43757 #### [facility],[address] [place] [address] 60286 Ketone 5 Abnormal NORMAL: NEGATIVE [facility] Comment on above: Performed By: #### 2 15986 #### [facility],[address] [place] [address] 32083 Leukocytes 100 Abnormal NORMAL: NEGATIVE [facility] Comment on above: Performed By: #### 2 18144 #### [facility],[address] [place] [address] 27144 Mucous NONE Normal [facility] Comment on above: Performed By: #### 2 37781 #### [facility],[address] [place] [address] 41755 Nitrite Ql (U) Negative Normal NORMAL: NEGATIVE [facility] Comment on above: Performed By: #### 2 92999 #### [facility],[address] [place] [address] 89486 pH (U) 6 [pH] Normal NORMAL: 5.0-8.0 [facility] Comment on above: Performed By: #### 2 74129 #### [facility],[address] [place] [address] 13622 Protein Ql (U) 30 Abnormal NORMAL: NEGATIVE [facility] Comment on above: Performed By: #### 2 41788 #### [facility],[address] [place] [address] 53908 Rbc NONE Normal 0-3/hpf [facility] Comment on above: Performed By: #### 2 81593 #### [facility],[address] [place] [address] 62892 Sp [place] 1.015 Normal NORMAL: 1.010-1.03 0 [facility] Comment on above: Performed By: #### 2 48672 #### [facility],[address] [place] [address] 70118 Specimen Type R Normal [facility] Comment on above: Performed By: #### 2 70060 #### [facility],[address] [place] [address] Urinalysis dipstick W Reflex Microscopic panel (U) SEE BELOW Normal [facility] Comment on above: Result Comment: MICR OSCOPIC Performed By: #### 2 44193 #### [facility],[address] [place] [address] Urobilinog NORM Normal NORMAL: NORMAL [facility] Comment on above: Performed By: #### 2 17298 #### [facility],[address] [place] [address] Wbc 1-5 Normal 0-5/hpf [facility] Comment on above: Performed By: #### 2 69449 #### [facility],[address] [place] [address] Yeast NONE Normal [facility] Comment on above: Performed By: #### 2 66797 #### [facility],[address] [place], [place] [address] Cardiology Visit Reporton Cardiology Visit Report [facility] [address] [place] [address] OFFICE VISIT Date of Service: 03/18/25 MR#: [id number] Acct: [id number] Name: MARIBEL SIMPSON Rep #: [id number] : 1940 Provider: ARCHIE Shrestha Age/Sex: 85/F Location: [facility] Status: Signed HPI HPI History of Present Illness Details: Maribel Simpson is an 84 year-old female with a history of congestive heart failure, nonischemic cardiomyopathy, persistent atrial fibrillation and moderately severe mitral insufficiency Pt was in the Er on 01/20/25 for increase SOB. She has not had any significant cardiac symptoms that are concerning for her since she was here last. She feels overall that she is stable. She resides at an AL in [facility]. Intake Vital Signs 02/05/25 11:18 01/22/25 06:55 03/18/25 14:48 Height 5 ft 7 in 5 ft 6.93 in 5 ft 6.93 in Weight: 106 lb BMI 16.6 BP 93/59 L Blood Pressure Location Rt brachial Position Sitting Respiration 16 Pulse 94 Pulse Source Monitor Intake Visit Reasons: 3 M FU Atmospheric Chemist Required: No Accompanied by: Daughter Allergies milk Adverse Reaction (Mild, Verified 03/18/25 14:49) gas wheat Adverse Reaction (Mild, Verified 03/18/25 14:49) Abd cramps/diarrhea Medications ???Medication ???Instructions ???Recorded ???Confirmed ???Type multivitamin with minerals 1 tab PO DAILY supplement 02/24/19 03/18/25 History psyllium husk 0.4 gram capsule 0.4 g PO DAILY 01/17/22 03/18/25 H istory (Daily Fiber) cholecalciferol (vitamin D3) 25 25 mcg PO DAILY 03/13/22 03/18/25 History mcg (1,000 unit) tablet food supplemt, lactose-reduced 120 ml PO DAILY PRN supp 04/30/23 03/18/25 History 0.08 gram-1.5 kcal/mL oral liquid ascorbic acid (vitamin C) 500 mg 250 mg PO DAILY 10/29/23 03/18/25 History tablet mecobalamin (vitamin B12) 500 mcg 500 mcg PO DAILY 12/11/23 5 History chewable tablet metoprolol tartrate 25 mg tablet 25 mg PO DAILY bp #90 tabs 4 03/18/25 Rx hydrocodone-acetaminophen 5-325mg 1 tab PO QHS PRN pain 09/15/24 History 5mg-325mg ibuprofen 200 mg tablet 200 mg PO DAILY PRN fever or pain 10/08/24 03/18/25 History nystatin 100,000 unit/gram topical 1 applic topical DAILY PRN skin 10/08/24 03/18/25 History cream irritation quetiapine 100 mg tablet 50 mg (1/2 x 100 mg) PO QHS #60 03/18/25 Rx tabs polyethylene glycol 3350 17 17 g PO DAILY PRN constipation 03/18/25 History gram/dose oral powder (ClearLax) zinc acetate 50 mg (zinc) capsule 50 mg PO DAILY 01/20/25 03/18/25 History fluoxetine 20 mg capsule (Prozac) 20 mg PO QDAY 01/22/25 03/18/25 H istory furosemide 20 mg tablet 20 mg PO DAILY 01/22/25 03/18/25 H istory omeprazole 20 mg capsule,delayed 20 mg PO DAILY PRN 01/22/25 History release aspirin 81 mg tablet,delayed 81 mg PO DAILY #1 TAB 03/18/25 Rx release (Adult Aspirin Regimen) magnesium chloride 64 mg 64 mg PO QDAY 03/18/25 03/18/25 Hi story (magnesium chloride) tablet,delayed release vitamin E (dl, acetate) 180 mg 180 mg PO QDAY 03/18/25 03/18/25 H istory (400 unit) capsule Ejection fraction %: 60 Have you fallen in the past year?: No PFSH Medical History (HFpEF) heart failure with preserved [...] you participate in: none ROS Const Const: Positive for weakness; Negative for fatigue Eyes Eyes: Negative for change in vision ENT ENT: Positive for balance problems; Negative for dizziness Cardio Chest Pain: Yes (occ) Character: sharp Location: left chest (more content not included)... Normal [facility] Echo Completeon 03-03-2025 Echo Complete [facility] Cardiovascular Services [address] [place] [address] Echo Complete 03/03/25 1111 MR#: [id number] Acct: [id number] Name: MARIBEL SIMPSON Rep #: [id number] : 1940 84 From: Jasper Julian MD Attending Dr: ARCHIE Thomas Status: REG CLI Ordering Dr: Soraya Bagley PA Date: 09/27 Location: [facility] Sex: F C Admitted: Reason For Study Reason For Study: MVP Procedure This was a 2D Doppler, Color Flow transthoracic echocardiogram. Exam performed in department. Left Ventricle Normal LV size. Left ventricular systolic function is normal. The left ventricular ejection fraction is 60 %. No regional wall motion abnormalities noted. Right Ventricle Normal RV size. Normal systolic function. Atria The left atrium is severely enlarged. Normal right atrium. Mitral Valve There is mild mitral annular calcification. Anterior leaflet mitral valve prolapse. Moderate (2+) eccentric mitral valve insufficiency. Tricuspid Valve Normal tricuspid valve. Mild (1+) tricuspid valve insufficiency. Pulmonary artery systolic pressure is 46 mmHg. Aortic Valve Trisinus/trileaflet aortic valve. Pulmonic Valve Normal pulmonic valve. Great Vessels Normal aortic root. The pulmonary artery is normal size. Inferior vena cava collapse with sniff. Pericardium/Pleural No pericardial effusion. MMode/2D Measurements Calculations LVIDd: 4.8 cm IVSd: 0.81 cm LVOT diam: 1.8 cm LVIDs: 3.0 cm LVPWd: 0.93 cm LVOT area: 2.4 cm2 RVDd: 2.6 cm FS: 37.9 % asc Aorta Diam: 3.1 cm LAV(MOD-bp): 145.6 ml LVAd ap4: 22.7 cm2 LAV(MOD-bp) Indexed: 93.2 ml/m2 LVLd ap4: 7.0 cm LAV(MOD-sp2): 163.2 ml EDV(MOD-sp4): 61.7 ml LAV(MOD-sp4): 117.5 ml EDV(sp4-el): 62.7 ml LVAs ap4: 13.4 cm2 LVLs ap4: 6.4 cm ESV(MOD-sp4): 25.3 ml ESV(sp4-el): 23.8 ml EF(MOD-sp4): 59.0 % EF(sp4-el): 62.1 % LVAd ap2: 24.2 cm2 SV(MOD-sp4): 36.3 ml SV(MOD-sp2): 42.4 ml LVLd ap2: 7.4 cm SI(MOD-sp4): 23.3 ml/m2 SI(MOD-sp2): 27.1 ml/m2 EDV(MOD-sp2): 65.7 ml EDV(sp2-el): 66.6 ml LVAs ap2: 12.4 cm2 LVLs ap2: 5.9 cm ESV(MOD-sp2): 23.3 ml ESV(sp2-el): 22.0 ml EF(MOD-sp2): 64.6 % SV(sp4-el): 38.9 ml LA dimension(2D): 5.4 cm LA A4 area: 34.2 cm2 RA A4 area: 10.8 cm2 TAPSE: 1.2 cm Time Measurements MV dec time: 0.19 sec Doppler Measurements Calculations MV E max natacha: 175.5 cm/sec MV V2 max: 202.8 cm/sec Ao V2 max: 111.9 cm/sec MV max P.5 mmHg Ao max P.0 mmHg MV V2 mean: 126.9 cm/sec Ao V2 mean: 72.2 cm/sec MV mean P.5 mmHg Ao mean P.5 mmHg MV V2 VTI: 38.9 cm Ao V2 VTI: 20.3 cm AV (velocity ratio): 0.62 MVA(VTI): 0.78 cm2 OSCAR(I,D): 1.5 cm2 OSCAR(V,D): 1.4 cm2 LV V1 max: 65.4 cm/sec SV(LVOT): 30.6 ml PA V2 max: 56.3 cm/sec LV V1 max P.7 mmHg LV V1 mean P.92 mmHg LV V1 mean: 44.2 cm/sec LV V1 VTI: 12.5 cm TR max natacha: 324.8 cm/sec TR max P.2 mmHg ECHO/Echo Complete Interpretation Summary Normal LV size. Left ventricular systolic function is normal. The left ventricular ejection fraction is 60 %. Anterior leaflet mitral valve prolapse. Moderate (2+) eccentric mitral valve insufficiency. The left atrium is severely enlarged. Ordering Physician: Soraya Bagley Referring Physician: Soraya Bagley Performed By: Ramona Toro RDCS 03/03/25 1622 Date Jasper Julian MD CC: Dr. Ronni Sen DO; ARCHIE Thomas Date Dictated: 03/03/25 1111 Date Transcribed: 03/03/251621 Seed Technician: Signed Normal [facility] Echocardiogram study reportO rdered By: Jasper Julian on 03-03-2025 Study report [facility] Cardiovascular Services [address] [place] [address] Echo Complete 03/03/25 1111 MR#: [id number] Acct: [id number] Name: MARIBEL SIMPSON Rep #:[id number] : 1940 84 From: Jasper Salazar Attending Dr: ARCHIE Thomas Status: REG CLI Ordering Dr: Soraya Bagley PA Date: 03/03/25 Location: [facility] Sex: F C Admitted: Reason For Study Reason For Study: MVP Procedure This was a 2D Doppler, Color Flow transthoracic echocardiogram. Exam performed in department. Left Ventricle Normal LV size. Left ventricular systolic function is normal. The left ventricular ejection fraction is 60 %. No regional wall motion abnormalities noted. Right Ventricle Normal RV size. Normal systolic function. Atria The left atrium is severely enlarged. Normal right atrium. Mitral Valve There is mild mitral annular calcification. Anterior leaflet mitral valve prolapse. Moderate (2+) eccentric mitral valve insufficiency. Tricuspid Valve Normal tricuspid valve. Mild (1+) tricuspid valve insufficiency. Pulmonary artery systolic pressure is 46 mmHg. Aortic Valve Trisinus/trileaflet aortic valve. Pulmonic Valve Normal pulmonic valve. Great Vessels Normal aortic root. The pulmonary artery is normal size. Inferior vena cava collapse with sniff. Pericardium/Pleural No pericardial effusion. MMode/2D Measurements & Calculations LVIDd: 4.8 cm IVSd: 0.81 cm LVOT diam: 1.8 cm LVIDs: 3.0 cm LVPWd: 0.93 cm LVOT area: 2.4 cm2 RVDd: 2.6 cm FS: 37.9 % asc Aorta Diam: 3.1 cm LAV(MOD-bp): 145.6 ml LVAd ap4: 22.7 cm2 LAV(MOD-bp) Indexed: 93.2 ml/m2 LVLd ap4: 7.0 cm LAV(MOD-sp2): 163.2 ml EDV(MOD-sp4): 61.7 ml LAV(MOD-sp4): 117.5 ml EDV(sp4-el): 62.7 ml LVAs ap4: 13.4 cm2 LVLs ap4: 6.4 cm ESV(MOD-sp4): 25.3 ml ESV(sp4-el): 23.8 ml EF(MOD-sp4): 59.0 % EF(sp4-el): 62.1 % LVAd ap2: 24.2 cm2 SV(MOD-sp4): 36.3 ml SV(MOD-sp2): 42.4 ml LVLd ap2: 7.4 cm SI(MOD-sp4): 23.3 ml/m2 SI(MOD-sp2): 27.1 ml/m2 EDV(MOD-sp2): 65.7 ml EDV(sp2-el): 66.6 ml LVAs ap2: 12.4 cm2 LVLs ap2: 5.9 cm ESV(MOD-sp2): 23.3 ml ESV(sp2-el): 22.0 ml EF(MOD-sp2): 64.6 % SV(sp4-el): 38.9 ml LA dimension(2D): 5.4 cm LA A4 area: 34.2 cm2 __ RA A4 area: 10.8 cm2 TAPSE: 1.2 cm Time Measurements MV dec time: 0.19 sec Doppler Measurements & Calculations MV E max natacha: 175.5 cm/sec MV V2 max: 202.8 cm/sec Ao V2 max: 111.9 cm/sec MV max P.5 mmHg Ao max P.0 mmHg MV V2 mean: 126.9 cm/sec Ao V2 mean: 72.2 cm/sec MV mean P.5 mmHg Ao mean P.5 mmHg MV V2 VTI: 38.9 cm Ao V2 VTI: 20.3 cm AV (velocity ratio): 0.62 MVA(VTI): 0.78 cm2 OSCAR(I,D): 1.5 cm2 OSCAR(V,D): 1.4 cm2 LV V1 max: 65.4 cm/sec SV(LVOT): 30.6 ml PA V2 max: 56.3 cm/sec LV V1 max P.7 mmHg LV V1 mean P.92 mmHg LV V1 mean: 44.2 cm/sec LV V1 VTI: 12.5 cm __ TR max natacha: 324.8 cm/sec TR max P.2 mmHg ECHO/Echo Complete Interpretation Summary Normal LV size. Left ventricular systolic function is normal. The left ventricular ejection fraction is 60 %. Anterior leaflet mitral valve prolapse. Moderate (2+) eccentric mitral valve insufficiency. The left atrium is severely enlarged. Ordering Physician: Soraya Bagley Referring Physician: Soraya Bagley Performed By: Ramona Toro RDCS 03/03/25 1622 Date _ Jasper Julian MD CC: Dr. Ronni Sen DO; ARCHIE Thomas ~ Date Dictated: 03/03/25 1111 Date Transcribed: 03/03/251621 Seed Technician: Signed [facility] Work Phone: Cardiology Visit Reporton Cardiology Visit Report [facility] [address] [place], [place] [address] OFFICE VISIT Date of Service: 01/22/25 MR#: [id number] Acct: [id number] Name: MARIBEL SIMPSON Rep #: [id number] : 1940 Provider: ARCHIE Shrestha Age/Sex: 84/F Location: [facility] Status: Signed HPI HPI History of Present [...] Pulse Oximetry (%) 95 Intake Visit Reasons: [facility] ER 01/20 HTN/PALPS Atmospheric Chemist Required: No Is patient in pain?: No [...] states she has a hernia [facility] Medical History (HFpEF) heart failure with preserved [...] headache(s) o (more content not included)... Normal [facility] 12 Lead EKGon 01-20-2025 12 Lead EKG [facility] Cardiovascular Services [address] [place] [address] 12 Lead EKG 01/20/25 1241 MR#: [id number] Acct: [id number] Name: MARIBEL SIMPSON Rep #: [id number] : 1940 84 From: Jasper Julian MD [...] ms Atrial fibrillation Abnormal ECG Confirmed by JASPER JULIAN MD ([id number]), publications editor ASTRID MERINO ([id number]) on 01/21/2025 10:34:40 AM Referred By: Confirmed By: JASPER JULIAN MD 01/21/25 1034 Date Jasper Julian MD CC: Dr. Laverne Elena DO; Dr. Ronni Sen DO Signed Normal [facility] Absolute lymphocyte countOrd ered By: Laverne Elena on 01-20-2025 Lymphocytes Auto (Unsp spec) [#/Vol] 1.50 10*3/uL 0.83-4.51 [facility] Absolute neutrophil countOrd ered By: Laverne Elena on 01-20-2025 Neutrophils (Bld) [#/Vol] 5.1 10*3/uL 2.0-7.7 [facility] Anion gap in Serum or Plasma Ordered By: Laverne Elena on 01-20-2025 Anion gap [Moles/Vol] 12 mmol/L 01-15 [facility] Automated lymphocyte count a s percentage of total leukocytesOrdered By: Laverne Elena on 01-20-2025 Lymphocytes/100 WBC Auto (Unsp spec) 20.3 % [facility] BUN/creatinine ratioOrdered By: Laverne Elena on 01-20-2025 Urea nitrogen/Creatinine [Mass ratio] 26.3 mg/mg High - [facility] Basophil percentageOrdered B y: Laverne Elena on 01-20-2025 Basophils/100 WBC (Bld) 0.9 % 0-1 [facility] Bilirubin, totalOrdered By: Laverne Elena on 01-20-2025 Bilirubin [Mass/Vol] 0.78 mg/dL 0.00-1.30 [facility] CBC W/Diff, Automatedon 01-02 Absolute Lymph 1.50 X10 3/uL Normal 0.83-4.51 [facility] Comment on above: Performed By: #### L 501.2450, L100.0100, L503.7505, L501.9520, L500.4050, L300.8000, L501.4021 ####[facility] [address] [place], [address] Absolute Neut 5.1 X10 3/uL Normal 2.0-7.7 [facility] Comment on above: Performed By: #### L 501.2450, L100.0100, L503.7505, L501.9520, L500.4050, L300.8000, L501.4021 ####[facility] [address] [place], [address] Basophils/100 WBC (Bld) 0.9 % Normal 0-1 [facility] Comment on above: Performed By: #### L 501.2450, L100.0100, L503.7505, L501.9520, L500.4050, L300.8000, L501.4021 ####[facility] [address] [place], [address] Eosinophils/100 WBC (Bld) 1.4 % Normal 0-5 [facility] Comment on above: Performed By: #### L 501.2450, L100.0100, L503.7505, L501.9520, L500.4050, L300.8000, L501.4021 ####[facility] [address] [place], [address] Erythrocyte distribution width (RBC) [Ratio] 13.4 % Normal 11.6-14.6 [facility] Comment on above: Performed By: #### L 501.2450, L100.0100, L503.7505, L501.9520, L500.4050, L300.8000, L501.4021 ####[facility] [address] [place], [address] Hematocrit (Bld) [Volume fraction] 40.6 % Normal 37-47 [facility] Comment on above: Performed By: #### L 501.2450, L100.0100, L503.7505, L501.9520, L500.4050, L300.8000, L501.4021 ####[facility] [address] [place], [address] Hemoglobin (Bld) [Mass/Vol] 13.5 g/dL Normal 12.0-15.0 [facility] Comment on above: Performed By: #### L 501.2450, L100.0100, L503.7505, L501.9520, L500.4050, L300.8000, L501.4021 ####[facility] [address] [place], [address] IG% 0.400 Normal 0.0-0.9 [facility] Comment on above: Result Comment: IG% - Immature Granulocytes (promyelocytes, myelocytes and metamyelocytes) > 1% indicates that a LEFT SHIFT is Present. Performed By: #### L 501.2450, L100.0100, L503.7505, L501.9520, L500.4050, L300.8000, L501.4021 ####[facility] [address] [place], [address] Lymphocytes/100 WBC (Bld) 20.3 % Normal 19-41 [facility] Comment on above: Performed By: #### L 501.2450, L100.0100, L503.7505, L501.9520, L500.4050, L300.8000, L501.4021 ####[facility] [address] [place], [address] MCH (RBC) [Entitic mass] 31.5 pg Normal 27.0-32.0 [facility] Comment on above: Performed By: #### L 501.2450, L100.0100, L503.7505, L501.9520, L500.4050, L300.8000, L501.4021 ####[facility] [address] [place], [address] MCHC (RBC) [Mass/Vol] 33.3 g/dL Normal 32-36 [facility] Comment on above: Performed By: #### L 501.2450, L100.0100, L503.7505, L501.9520, L500.4050, L300.8000, L501.4021 ####[facility] [address] [place], [address] MCV (RBC) [Entitic vol] 94.6 fL Normal 81-99 [facility] Comment on above: Performed By: #### L 501.2450, L100.0100, L503.7505, L501.9520, L500.4050, L300.8000, L501.4021 ####[facility] [address] [place], [address] Monocytes/100 WBC (Bld) 8.5 % Normal 0-10 [facility] Comment on above: Performed By: #### L 501.2450, L100.0100, L503.7505, L501.9520, L500.4050, L300.8000, L501.4021 ####[facility] [address] [place], [address] Neutrophils/100 WBC (Bld) 68.5 % Normal 47-70 [facility] Comment on above: Performed By: #### L 501.2450, L100.0100, L503.7505, L501.9520, L500.4050, L300.8000, L501.4021 ####[facility] [address] [place], [address] Nucleated RBC (Bld) [#/Vol] 0 10*3/uL Normal 0-5 [facility] Comment on above: Performed By: #### L 501.2450, L100.0100, L503.7505, L501.9520, L500.4050, L300.8000, L501.4021 ####[facility] [address] [place], [address] Platelet mean volume (Bld) [Entitic vol] 10.2 fL Normal 6.2-12.0 [facility] Comment on above: Performed By: #### L 501.2450, L100.0100, L503.7505, L501.9520, L500.4050, L300.8000, L501.4021 ####[facility] [address] [place], [address] Platelets (Bld) [#/Vol] 213 10*3/uL Normal 150-450 [facility] Comment on above: Performed By: #### L 501.2450, L100.0100, L503.7505, L501.9520, L500.4050, L300.8000, L501.4021 ####[facility] [address] [place], [address] RBC (Bld) [#/Vol] 4.29 10*6/uL Normal 4.2-5.4 [facility] Comment on above: Performed By: #### L 501.2450, L100.0100, L503.7505, L501.9520, L500.4050, L300.8000, L501.4021 ####[facility] [address] [place], [address] RDW SD 46.8 fl High 35.1-43.9 [facility] Comment on above: Performed By: #### L 501.2450, L100.0100, L503.7505, L501.9520, L500.4050, L300.8000, L501.4021 ####[facility] [address] [place], [address] WBC (Bld) [#/Vol] 7.4 10*3/uL Normal 4.4-11.0 [facility] Comment on above: Performed By: #### L 501.2450, L100.0100, L503.7505, L501.9520, L500.4050, L300.8000, L501.4021 ####[facility] [address] [place], [address] Carbon dioxide, total [Moles /volume] in Central venous bloodOrdered By: Laverne Elena on 01-20-2025 CO2 [Moles/Vol] 24.3 mmol/L 21.0-32.0 [facility] Chest PA and Lateralon 01-20 Chest PA and Lateral [facility] Imaging Services [address] [place] [address] Chest PA and Lateral MR#: [id number] Acct: [id number] Name: MARIBEL SIMPSON Rep #: [id number] : 1940 F 84 From: Josiah tripp MD PCP: Dr. Ronni Sen, DO Status: REG ER Study: Chest PA and Lateral Date of Exam: 01/20/25 Exam# [id number] Ordering Dr: Laverne Elena DO PROCEDURE: CHEST [...] worse on the right side. Reading Location: [facility] CC: Dr. Laverne Elena, DO; Dr. Ronni Sen, DO Seed Technician: Signed Normal [facility] Chloride assayOrdered By: Kings Elena on 01-20-2025 Chloride [Moles/Vol] 98 mmol/L 98-108 [facility] Comprehensive Metabolic Prof ilon 01-20-2025 Albumin [Mass/Vol] 4.2 g/dL Normal 3.4-4.8 [facility] Comment on above: Performed By: #### L 501.2450, L100.0100, L503.7505, L501.9520, L500.4050, L300.8000, L501.4021 ####[facility] [address] [facility] [place], [address] Albumin/Globulin [Mass ratio] 1.4 {ratio} Normal 0.9-2.4 [facility] Comment on above: Performed By: #### L 501.2450, L100.0100, L503.7505, L501.9520, L500.4050, L300.8000, L501.4021 ####[facility] [address] [place], [address] ALK PHOS 73 U/L Normal 35-104 [facility] Comment on above: Performed By: #### L 501.2450, L100.0100, L503.7505, L501.9520, L500.4050, L300.8000, L501.4021 ####[facility] [address] [place], [address] ALT [Catalytic activity/Vol] 31 U/L Normal <=34 [facility] Comment on above: Performed By: #### L 501.2450, L100.0100, L503.7505, L501.9520, L500.4050, L300.8000, L501.4021 ####[facility] [address] [place], [address] AST [Catalytic activity/Vol] 57 U/L High <=31 [facility] Comment on above: Performed By: #### L 501.2450, L100.0100, L503.7505, L501.9520, L500.4050, L300.8000, L501.4021 ####[facility] [address] [place], [address] Bilirubin [Mass/Vol] 0.78 mg/dL Normal 0.00-1.30 [facility] Comment on above: Performed By: #### L 501.2450, L100.0100, L503.7505, L501.9520, L500.4050, L300.8000, L501.4021 ####[facility] [address] [place], [address] BUN/CRE 26.3 RATIO High 10-20 [facility] Comment on above: Performed By: #### L 501.2450, L100.0100, L503.7505, L501.9520, L500.4050, L300.8000, L501.4021 ####[facility] [address] [place], [address] Calcium [Mass/Vol] 9.5 mg/dL Normal 7.6-11.0 [facility] Comment on above: Performed By: #### L 501.2450, L100.0100, L503.7505, L501.9520, L500.4050, L300.8000, L501.4021 ####[facility] [address] [place], [address] Chloride [Moles/Vol] 98 mmol/L Normal 98-108 [facility] Comment on above: Performed By: #### L 501.2450, L100.0100, L503.7505, L501.9520, L500.4050, L300.8000, L501.4021 ####[facility] [address] [place], [address] CO2 [Moles/Vol] 24.3 mmol/L Normal 21.0-32.0 [facility] Comment on above: Performed By: #### L 501.2450, L100.0100, L503.7505, L501.9520, L500.4050, L300.8000, L501.4021 ####[facility] [address] [place], [address] Creatinine [Mass/Vol] 0.76 mg/dL Normal 0.70-1.20 [facility] Comment on above: Performed By: #### L 501.2450, L100.0100, L503.7505, L501.9520, L500.4050, L300.8000, L501.4021 ####[facility] [address] [place], [address] ECRCL 43.40 ml/min Low 50-250 [facility] Comment on above: Performed By: #### L 501.2450, L100.0100, L503.7505, L501.9520, L500.4050, L300.8000, L501.4021 ####[facility] [address] [place], [address] GAP 12 Normal 5-15 [facility] Comment on above: Performed By: #### L 501.2450, L100.0100, L503.7505, L501.9520, L500.4050, L300.8000, L501.4021 ####[facility] [address] [place], [address] GFR/1.73 sq M.predicted among non-blacks MDRD (S/P/Bld) [Vol rate/Area] 78 mL/min/{1.73_m2} Normal >60 [facility] Comment on above: Result Comment: mL/m in/1.73m2 CKD-EPI Creatinine Equation (2020) Performed By: #### L 501.2450, L100.0100, L503.7505, L501.9520, L500.4050, L300.8000, L501.4021 ####[facility] [address] [place], [address] Globulin (S) [Mass/Vol] 3.0 g/dL Normal 2.2-4.2 [facility] Comment on above: Performed By: #### L 501.2450, L100.0100, L503.7505, L501.9520, L500.4050, L300.8000, L501.4021 ####[facility] [address] [place], [address] Glucose [Mass/Vol] 96 mg/dL Normal 70-99 [facility] Comment on above: Performed By: #### L 501.2450, L100.0100, L503.7505, L501.9520, L500.4050, L300.8000, L501.4021 ####[facility] [address] [place], [address] Potassium [Moles/Vol] 4.5 mmol/L Normal 3.3-5.1 [facility] Comment on above: Performed By: #### L 501.2450, L100.0100, L503.7505, L501.9520, L500.4050, L300.8000, L501.4021 ####[facility] [address] [place], [address] Sodium [Moles/Vol] 135 mmol/L Normal 133-145 [facility] Comment on above: Performed By: #### L 501.2450, L100.0100, L503.7505, L501.9520, L500.4050, L300.8000, L501.4021 ####[facility] [address] [place], [address] T PROT 7.2 g/dL Normal 5.9-8.4 [facility] Comment on above: Performed By: #### L 501.2450, L100.0100, L503.7505, L501.9520, L500.4050, L300.8000, L501.4021 ####[facility] [address] [place], [address] Urea nitrogen [Mass/Vol] 20 mg/dL High 4-19 [facility] Comment on above: Performed By: #### L 501.2450, L100.0100, L503.7505, L501.9520, L500.4050, L300.8000, L501.4021 ####[facility] [address] [place], [address] D-Dimer Quantitative (DVT/PE )on 01-20-2025 D-DIMER QUANT 0.63 FEU/ug/m Invalid Interpretation Code 0.27-0.49 [facility] Comment on above: Result Comment: D-Di lore ELEVATED (>0.49): Additional studies and clinical assessments are indicated to conclude diagnosis of: Deep Vein Thrombosis (DVT) or Pulmonary Embolism (PE) CRITICAL VALUE CALLED TO Cornelius VIRGEN 01/20/25 131Ana Rogers. RESULTS READ BACK BY SAME. Performed By: #### L 501.2450, L100.0100, L503.7505, L501.9520, L500.4050, L300.8000, L501.4021 ####[facility] [address] [place], [address] Emergency Department Summary on 01-20-2025 Emergency Department Summary [facility] Medical Records Department [address] [place] [address] Emergency Department Summary 01/20/25 MR#: [id number] Acct: [id number] Name: MARIBEL SIMPSON Rep #: [id number] : [id number] 84 From: Laverne Elena DO PCP: Dr. Ronni Sen, DO Status:REG ER Location: ED HPI History [...] Denies any fever. Had the flu around [facility] but that was a month ago. [...] did help her right sided chest discomfort. [facility] Medical History (HFpEF) heart failure with [...] in: none (more content not included)... Normal [facility] Eosinophil percentageOrdered By: Laverne Elena on 01-20-2025 Eosinophils/100 WBC (Bld) 1.4 % 0-5 [facility] Erythrocyte distribution wid th ratioOrdered By: Laverne Elena on 01-20-2025 Erythrocyte distribution width (RBC) [Ratio] 13.4 % 11.6-14.6 [facility] Erythrocyte distribution wid th standard deviationOrdered By: Laverne Elena on 01-20-2025 Erythrocyte distribution width (RBC) [Ratio] 46.8 fl High 35.1-43.9 [facility] Glomerular filtration rate ( GFR) estimation/1.73 sq m using serum, plasma, or whole bOrdered By: Laverne Elena on 01-20-2025 GFR/1.73 sq M.predicted among non-blacks MDRD (S/P/Bld) [Vol rate/Area] 78 mL/min/{1.73_m2} >60 [facility] Comment on above: mL/min/1.73m2 CKD-EP I Creatinine Equation (2020) Hematocrit Auto (Bld) [Volum e fraction]Ordered By: Laverne Elena on 01-20-2025 Hematocrit (Bld) [Volume fraction] 40.6 % 37-47 [facility] Hemoglobin measurementOrdere d By: Laverne Elena on 01-20-2025 Hemoglobin (Bld) [Mass/Vol] 13.5 g/dL 12.0-15.0 [facility] Immature granulocytes/100 WB C Auto (Bld)Ordered By: Laverne Elena on 01-20-2025 Immature granulocytes/100 WBC (Bld) 0.400 % 0.0-0.9 [facility] Comment on above: IG% - Immature Granu locytes (promyelocytes, myelocytes and metamyelocytes) > 1% indicates that a LEFT SHIFT is Present. L499.0042on 01-20-2025 Trop T High Sen 10 ng/L Normal <=14 [facility] Comment on above: Performed By: #### L 499.0042 ####[facility] [address] [place], [address] L499.0043on 01-20-2025 Trop T High Sen Normal <=14 [facility] Comment on above: Result Comment: Canc elled via OM: Order cancelled - Patient discharged Performed By: #### L 499.0043 ####[facility] [address] [place], [address] L501.4021on 01-20-2025 Trop T High Sen 12 ng/L Normal <=14 [facility] Comment on above: Performed By: #### L 501.2450, L100.0100, L503.7505, L501.9520, L500.4050, L300.8000, L501.4021 ####[facility] [address] [place], [address] L503.7505on 01-20-2025 Natriuretic peptide B (Bld) [Mass/Vol] 3460 pg/mL High <=1800 [facility] Comment on above: Result Comment: Hear t Failure Unlikely: < 300 pg/mL Heart Failure Likely < 50 Years: > 450 pg/mL 50-75 Years: > 900 pg/mL >75 Years: > 1800 pg/mL Performed By: #### L 501.2450, L100.0100, L503.7505, L501.9520, L500.4050, L300.8000, L501.4021 ####[facility] [address] [place], [place], [address] Laboratory - Chemistry and C hemistry - challengeOrdered By: Laverne Elena on 01-20-2025 AST [Catalytic activity/Vol] 57 U/L High <32 [facility] Lipaseon 01-20-2025 Lipase [Catalytic activity/Vol] 12 U/L Low 13-75 [facility] Comment on above: Result Comment: Plea se note: LIPASE revised reference range effective 22. New Lipase methodology. Expected to produce lower values than the previous assay method. NEW Reference Range: 13 - 75 U/L Performed By: #### L 501.2450, L100.0100, L503.7505, L501.9520, L500.4050, L300.8000, L501.4021 ####[facility] [address] [facility] [place], [place], [address] Lipase measurementOrdered By : Laverne Elena on 01-20-2025 Lipase [Catalytic activity/Vol] 12 U/L Low 13-75 [facility] Comment on above: Please note:LIPASE r evised reference range effective 22. New Lipase methodology. Expected to produce lower values than the previous assay method. NEW Reference Range: 13 - 75 U/L MCV (mean corpuscular volume ) determinationOrdered By: Laverne Elena on 01-20-2025 MCV (RBC) [Entitic vol] 94.6 fL 81-99 [facility] Mean corpuscular hemoglobin (MCH) determinationOrdered By: Laverne Elena on 01-20-2025 MCH (RBC) [Entitic mass] 31.5 pg 27.0-32.0 [facility] Mean corpuscular hemoglobin concentration (MCHC) determinationOrdered By: Laverne Elena on 01-20-2025 MCHC (RBC) [Mass/Vol] 33.3 g/dL 32-36 [facility] Mean platelet volume determi nationOrdered By: Laverne Elena on 01-20-2025 Platelet mean volume (Bld) [Entitic vol] 10.2 fL 6.2-12.0 [facility] Monocyte percentageOrdered B y: Laverne Elena on 01-20-2025 Monocytes/100 WBC (Bld) 8.5 % 0-10 [facility] Natriuretic peptide.B prohor keith N-Terminal [Mass/volume] in Serum or PlasmaOrdered By: Laverne Elena on 01-20-2025 Natriuretic peptide.B prohormone N-Terminal [Mass/Vol] 3460 pg/mL High <1800 [facility] Comment on above: Heart Failure Unlike ly: < 300 pg/mLHeart Failure Likely< 50 Years: > 450 pg/mL50-75 Years: > 900 pg/mL>75 Years: > 1800 pg/mL Neutrophil percentageOrdered By: Laverne Elena on 01-20-2025 Neutrophils/100 WBC (Bld) 68.5 % 47-70 [facility] Nucleated red blood cell per centageOrdered By: Laverne Elena on 01-20-2025 Nucleated RBC/100 WBC (Bld) [Ratio] 0 % 0-5 [facility] Platelet countOrdered By: Kings Elena on 01-20-2025 Platelets (Bld) [#/Vol] 213 10*3/uL 150-450 [facility] Potassium measurement (mass/ volume)Ordered By: Laverne Elena on 01-20-2025 Potassium (Unsp spec) [Mass/Vol] 4.5 mmol/L 3.3-5.1 [facility] RBC Auto (Bld) [#/Vol]Ordere d By: Laverne Elena on 01-20-2025 RBC (Bld) [#/Vol] 4.29 10*6/uL 4.2-5.4 [facility] Serum creatinine measurement (mass/volume)Ordered By: Laverne Elena on 01-20-2025 Creatinine [Mass/Vol] 0.76 mg/dL 0.70-1.20 [facility] Serum globulin measurementOr dered By: Laverne Elena on 01-20-2025 Globulin (S) [Mass/Vol] 3.0 g/dL 2.2-4.2 [facility] Serum glucose measurement (m ass/volume)Ordered By: Laverne Elena on 01-20-2025 Glucose [Mass/Vol] 96 mg/dL 70-99 [facility] Serum or plasma alanine grissom otransferase (ALT) measurementOrdered By: Laverne Elena on 01-20-2025 ALT [Catalytic activity/Vol] 31 U/L <35 [facility] Serum or plasma albumin paul urement (mass/volume)Ordered By: Laverne Elena on 01-20-2025 Albumin [Mass/Vol] 4.2 g/dL 3.4-4.8 [facility] Serum or plasma albumin/glob ulin mass ratioOrdered By: Laverne Elena on 01-20-2025 Albumin/Globulin [Mass ratio] 1.4 {ratio} 0.9-2.4 [facility] Serum or plasma alkaline augusta sphatase measurementOrdered By: Laverne Elena on 01-20-2025 ALP [Catalytic activity/Vol] 73 U/L 35-104 [facility] Serum or plasma calcium paul urement (mass/volume)Ordered By: Laverne Elena on 01-20-2025 Calcium [Mass/Vol] 9.5 mg/dL 7.6-11.0 [facility] Serum or plasma urea nitroge n measurement (mass/volume)Ordered By: Laverne Elena on 01-20-2025 Urea nitrogen [Mass/Vol] 20 mg/dL High 4-19 [facility] Sodium levelOrdered By: Leana Elena on 01-20-2025 Sodium [Moles/Vol] 135 mmol/L 133-145 [facility] TSH DL <= 0.005 mIU/L QnOrde red By: Laverne Elena on 01-20-2025 TSH Qn 8.900 uIU/mL High 0.300-4.20 0 [facility] Thyroid Stim Hormone (TSH)on 01-20-2025 TSH 8.900 uIU/mL High 0.300-4.20 0 [facility] Comment on above: Performed By: #### L 501.2450, L100.0100, L503.7505, L501.9520, L500.4050, L300.8000, L501.4021 ####[facility] [address] [place], [place], [id number] Total proteinOrdered By: Jada Elena on 01-20-2025 Protein [Mass/Vol] 7.2 g/dL 5.9-8.4 [facility] Troponin T.cardiac [Mass/vol ume] in Serum or Plasma by High sensitivity methodOrdered By: Laverne Elena on 01-20-2025 Troponin T.cardiac High sensitivity method [Mass/Vol] 10 ng/L <14 [facility] Troponin T.cardiac High sensitivity method [Mass/Vol] 12 ng/L <14 [facility] White blood cell (WBC) count Ordered By: Laverne Elena on 01-20-2025 WBC (Bld) [#/Vol] 7.4 10*3/uL 4.4-11.0 [facility] 12 Lead EKG performed by [facility] on 12-05-2024 12 Lead EKG performed by [address] [address] 12 Lead EKG performed by [facility] 12/05/24 113 MR#: [id number] Acct: [id number] Name: MARIBEL SIMPSON Rep #: [id number] : 1940 84 From: Goyo Díaz MD Attending Dr: Dr. Goyo Díaz MD Status: DE P AMB Ordering Dr: Goyo Díaz MD Date: 12/05/24 [place] [facility] [place] F C Admitted: BMS/12 Lead EKG performed by [facility] ECG Report Interpretation Atrial flutter-fibrillation ABNORMAL RHYTHMElectronically signed on 12/05/2024 at 15:07 by Jasper [employer] Version 8610 12/05/24 1410 Date Goyo Díaz MD CC: Dr. Ronni Sen DO Date Dictated: 12/05/24 113 Date Transcribed: 12/05/241129 Seed Technician: Signed Normal [facility] Office Visit Reporton 2024 Office Visit Report [facility] [address] [place] [address] OFFICE VISIT Date of Service: 12/05/24 MR#: [id number] Acct: [id number] Patient: MARIBEL SIMPSON Rep #: [id number] : 1940 Provider: Dr. Goyo robert MD Age/Sex: 84/F Location: [facility] Status: Signed Intake Vital Signs 10/08/24 11:18 [...] would like daughter Keyla called with advice [phone]. Assessment and Plan Assessment and Plan (1) [...] Orders: Orders 12 Lead EKG performed by [facility] Today I48.1 - Persistent atrial fibrillation Clinical Quality Measures Falls Risk Screening/Assistive Devices Have you fallen in the past year?: Yes 12/05/24 1438 Date Goyo Mckeon Signature: Date (if applicable) CC: Normal [facility] Internal Medicine Office Vis zedla 10-08-2024 Internal Medicine Office Visit [facility] [address] [place], [place] [address] OFFICE VISIT Date of Service: 10/08/24 MR#: [id number] Acct: [id number] Name: MARIBEL SIMPSON Rep #: [id number] : 1940 Provider: Dr. Ronni ca, DO Age/Sex: 84/F Location: [facility] [place] Status: Signed Intake Vital Signs 07/09/24 11:20 [...] BE ADMITTING TO [facility] Medical History (HFpEF) heart failure with preserved [...] ENT ENT (more content not included)... Normal [facility] 12 Lead EKG performed by [facility] on 09-15-2024 12 Lead EKG performed by [facility] [address] [place] [address] 12 Lead EKG performed by [facility] 09/15/24 0941 MR#: [id number] Acct: [id number] Name: MARIBEL SIMPSON Rep #: [id number] : 1940 84 From: Goyo Díaz MD Attending Dr: Dr. Goyo Díaz MD Status: DE P [facility] Ordering Dr: Goyo Díaz MD Date: 09/15/24 [place] [facility] [place] Sex: F C Admitted: BMS/12 Lead EKG performed by [facility] ECG Report Interpretation Atrial fibrillation - occasional ectopic ventricular beat -Diffuse ST depression + Negative precordial T-waves -Nondiagnostic -possible digitalis effect, ABNORMAL Electronically signed on 09/15/2024 at 16:[address] Goyo Díaz [employer] Version 8610 09/15/24 1624 Date Goyo Díaz MD CC: Dr. Ronni Sen, Date Dictated: 09/15/24940 Date Transcribed: 09/15/24940 Seed Technician: Signed Normal [facility] Cardiology Visit Reporton Cardiology Visit Report [facility] [address] [place] [address] OFFICE VISIT Date of Service: 09/15/24 MR#: [id number] Acct: [id number] Name: MARIBEL SIMPSON Rep #: [id number] : 1940 Provider: Dr. 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 Normal [facility] CBC W/Diff, Automatedon 11-0 -2023 Absolute Lymph 1.54 X10 3/uL Normal 0.83-4.51 [facility] Comment on above: Performed By: #### L 501.7510, L100.0100, L500.4050, L503.0105 #### [facility] [address] [place], [address] Absolute Neut 2.9 X10 3/uL Normal 2.0-7.7 [facility] Comment on above: Performed By: #### L 501.7510, L100.0100, L500.4050, L503.0105 #### [facility] [address] [place], [address] Basophils/100 WBC (Bld) 0.8 % Normal 0-1 [facility] Comment on above: Performed By: #### L 501.7510, L100.0100, L500.4050, L503.0105 #### [facility] [address] [place], [address] Eosinophils/100 WBC (Bld) 2.5 % Normal 0-5 [facility] Comment on above: Performed By: #### L 501.7510, L100.0100, L500.4050, L503.0105 #### [facility] [address] [place], [address] Erythrocyte distribution width (RBC) [Ratio] 13.2 % Normal 11.6-14.6 [facility] Comment on above: Performed By: #### L 501.7510, L100.0100, L500.4050, L503.0105 #### [facility] [address] [place], [address] Hematocrit (Bld) [Volume fraction] 39.3 % Normal 37-47 [facility] Comment on above: Performed By: #### L 501.7510, L100.0100, L500.4050, L503.0105 #### [facility] [address] [place], [address] Hemoglobin (Bld) [Mass/Vol] 12.4 g/dL Normal 12.0-15.0 [facility] Comment on above: Performed By: #### L 501.7510, L100.0100, L500.4050, L503.0105 #### [facility] [address] [place], [address] IG% 0.200 Normal 0.0-0.9 [facility] Comment on above: Result Comment: IG% - Immature Granulocytes (promyelocytes, myelocytes and metamyelocytes) > 1% indicates that a LEFT SHIFT is Present. Performed By: #### L 501.7510, L100.0100, L500.4050, L503.0105 #### [facility] [address] [place], [address] Lymphocytes/100 WBC (Bld) 29.8 % Normal 19-41 [facility] Comment on above: Performed By: #### L 501.7510, L100.0100, L500.4050, L503.0105 #### [facility] [address] [place], [address] MCH (RBC) [Entitic mass] 31.3 pg Normal 27.0-32.0 [facility] Comment on above: Performed By: #### L 501.7510, L100.0100, L500.4050, L503.0105 #### [facility] [address] [place], [address] MCHC (RBC) [Mass/Vol] 31.6 g/dL Low 32-36 [facility] Comment on above: Performed By: #### L 501.7510, L100.0100, L500.4050, L503.0105 #### [facility] [address] [place], [address] MCV (RBC) [Entitic vol] 99.2 fL High 81-99 [facility] Comment on above: Performed By: #### L 501.7510, L100.0100, L500.4050, L503.0105 #### [facility] [address] [place], [address] Monocytes/100 WBC (Bld) 10.6 % High 0-10 [facility] Comment on above: Performed By: #### L 501.7510, L100.0100, L500.4050, L503.0105 #### [facility] [address] [place], [address] Neutrophils/100 WBC (Bld) 56.1 % Normal 47-70 [facility] Comment on above: Performed By: #### L 501.7510, L100.0100, L500.4050, L503.0105 #### [facility] [address] [place], [address] Nucleated RBC (Bld) [#/Vol] 0 10*3/uL Normal 0-5 [facility] Comment on above: Performed By: #### L 501.7510, L100.0100, L500.4050, L503.0105 #### [facility] [address] [place], [address] Platelet mean volume (Bld) [Entitic vol] 11.0 fL Normal 6.2-12.0 [facility] Comment on above: Performed By: #### L 501.7510, L100.0100, L500.4050, L503.0105 #### [facility] [address] [place], [address] Platelets (Bld) [#/Vol] 192 10*3/uL Normal 150-450 [facility] Comment on above: Performed By: #### L 501.7510, L100.0100, L500.4050, L503.0105 #### [facility] [address] [place], [address] RBC (Bld) [#/Vol] 3.96 10*6/uL Low 4.2-5.4 [facility] Comment on above: Performed By: #### L 501.7510, L100.0100, L500.4050, L503.0105 #### [facility] [address] [place], [address] RDW SD 48.6 fl High 35.1-43.9 [facility] Comment on above: Performed By: #### L 501.7510, L100.0100, L500.4050, L503.0105 #### [facility] [address] [place], [address] WBC (Bld) [#/Vol] 5.2 10*3/uL Normal 4.4-11.0 [facility] Comment on above: Performed By: #### L 501.7510, L100.0100, L500.4050, L503.0105 #### [facility] [address] [place], [address] [facility] ilon 07-09-2024 Albumin [Mass/Vol] 3.9 g/dL Normal 3.2-5.0 [facility] Comment on above: Performed By: #### L 501.7510, L100.0100, L500.4050, L503.0105 ####[facility] [address] [place], [address] Albumin/Globulin [Mass ratio] 1.1 {ratio} Normal 0.9-2.4 [facility] Comment on above: Performed By: #### L 501.7510, L100.0100, L500.4050, L503.0105 ####[facility] [address] [place], [address] ALK P 60 U/L Normal 45-117 [facility] Comment on above: Performed By: #### L 501.7510, L100.0100, L500.4050, L503.0105 ####[facility] [address] [place], [address] ALT [Catalytic activity/Vol] 25 U/L Normal 13-56 [facility] Comment on above: Performed By: #### L 501.7510, L100.0100, L500.4050, L503.0105 ####[facility] [address] [place], [address] AST [Catalytic activity/Vol] 30 U/L Normal 15-37 [facility] Comment on above: Performed By: #### L 501.7510, L100.0100, L500.4050, L503.0105 ####[facility] [address] [place], [address] Bilirubin [Mass/Vol] 0.80 mg/dL Normal 0.20-1.00 [facility] Comment on above: Result Comment: For patients on eltrombopag therapy, use of Dimension Kirby TBIL is not recommended. Performed By: #### L 501.7510, L100.0100, L500.4050, L503.0105 ####[facility] [address] [place], [address] BUN/CRE 20.6 RATIO High 10-20 [facility] Comment on above: Performed By: #### L 501.7510, L100.0100, L500.4050, L503.0105 ####[facility] [address] [place], [address] CA,Total 9.6 mg/dL Normal 8.5-10.1 [facility] Comment on above: Performed By: #### L 501.7510, L100.0100, L500.4050, L503.0105 ####[facility] [address] [place], [address] Chloride [Moles/Vol] 103 mmol/L Normal 98-107 [facility] Comment on above: Performed By: #### L 501.7510, L100.0100, L500.4050, L503.0105 ####[facility] [address] [place], [address] CO2 [Moles/Vol] 31.0 mmol/L Normal 21.0-32.0 [facility] Comment on above: Performed By: #### L 501.7510, L100.0100, L500.4050, L503.0105 ####[facility] [address] [place], [address] Creatinine [Mass/Vol] 0.83 mg/dL Normal 0.55-1.02 [facility] Comment on above: Result Comment: The validity of the calculated GFR GFRAA in patients over 70 years has not been determined. Clinical correlation is essential. Performed By: #### L 501.7510, L100.0100, L500.4050, L503.0105 ####[facility] [address] [place], [address] EST GFR - AA 85 mL/min Normal >60 [facility] Comment on above: Result Comment: Afri can Maltese GFR Calc Performed By: #### L 501.7510, L100.0100, L500.4050, L503.0105 ####[facility] [address] [place], [address] GAP 5 Normal 5-15 [facility] Comment on above: Performed By: #### L 501.7510, L100.0100, L500.4050, L503.0105 ####[facility] [address] [place], [address] GFR/1.73 sq M.predicted among non-blacks MDRD (S/P/Bld) [Vol rate/Area] 70 mL/min/{1.73_m2} Normal >60 [facility] Comment on above: Result Comment: Non- GFR Calc Performed By: #### L 501.7510, L100.0100, L500.4050, L503.0105 ####[facility] [address] [place], [address] Globulin (S) [Mass/Vol] 3.4 g/dL Normal 2.2-4.2 [facility] Comment on above: Performed By: #### L 501.7510, L100.0100, L500.4050, L503.0105 ####[facility] [address] [place], [address] Glucose [Mass/Vol] 82 mg/dL Normal 74-106 [facility] Comment on above: Performed By: #### L 501.7510, L100.0100, L500.4050, L503.0105 ####[facility] [address] [place], [address] Potassium [Moles/Vol] 4.6 mmol/L Normal 3.5-5.1 [facility] Comment on above: Performed By: #### L 501.7510, L100.0100, L500.4050, L503.0105 ####[facility] [address] [place], [address] Sodium [Moles/Vol] 138 mmol/L Normal 136-145 [facility] Comment on above: Performed By: #### L 501.7510, L100.0100, L500.4050, L503.0105 ####[facility] [address] [place], [address] T PROT 7.3 g/dL Normal 6.4-8.2 [facility] Comment on above: Performed By: #### L 501.7510, L100.0100, L500.4050, L503.0105 ####[facility] [address] [place], [address] Urea nitrogen [Mass/Vol] 17 mg/dL Normal 7-18 [facility] Comment on above: Performed By: #### L 501.7510, L100.0100, L500.4050, L503.0105 ####[facility] [address] [place], [address] Digoxin Levelon 07-09-2024 DIG 1.10 ng/mL Normal 0.80-2.00 [facility] Comment on above: Performed By: #### L 501.7510, L100.0100, L500.4050, L503.0105 ####[facility] [address] [place], [address] Internal Medicine Office Vis iton 07-09-2024 Internal Medicine Office Visit [facility] [address] [place] [address] [place] [address] OFFICE VISIT Date of Service: 07/09/24 MR#: [id number] Acct: [id number] Name: MARIBEL SIMPSON Rep #: [id number] : 1940 Provider: Dr. 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 Normal [facility] Vitamin B12on 07-09-2024 Cobalamin (Vitamin B12) [Mass/Vol] 759 pg/mL Normal 211-911 [facility] Comment on above: Performed By: #### L 501.7510, L100.0100, L500.4050, L503.0105 #### [facility] [address] [place], [address] Absolute lymphocyte countOrd ered By: Ronni Sen on 03-07-2023 Lymphocytes Auto (Unsp spec) [#/Vol] 1.92 10*3/uL 0.83-4.51 [facility] Basophil percentageOrdered B y: Ronni Sen on 03-07-2023 Basophils/100 WBC (Bld) 0.7 % 0-1 [facility] Bilirubin [Mass/Vol] 0.50 mg/dL 0.20-1.00 [facility] Comment on above: For patients on eltr ombopag therapy, use of Dimension Kirby TBIL is not recommended. Chloride [Moles/Vol] 101 mmol/L 98-107 [facility] Eosinophils/100 WBC (Bld) 1.8 % 0-5 [facility] Glucose [Mass/Vol] 82 mg/dL 74-106 [facility] Neutrophils (Bld) [#/Vol] 4.0 10*3/uL 2.0-7.7 [facility] Neutrophils/100 WBC (Bld) 59.9 % 47-70 [facility] Potassium [Moles/Vol] 4.3 mmol/L 3.5-5.1 [facility] Protein [Mass/Vol] 7.2 g/dL 6.4-8.2 [facility] Sodium [Moles/Vol] 137 mmol/L 136-145 [facility] WBC (Bld) [#/Vol] 6.7 10*3/uL 4.4-11.0 [facility] Blood erythrocytes count (nu mber/volume)Ordered By: Ronni Sen on 03-07-2023 RBC (Bld) [#/Vol] 4.08 10*6/uL 4.2-5.4 [facility] Blood hemoglobin measurement (mass/volume)Ordered By: Ronni Sen on 03-07-2023 Hemoglobin (Bld) [Mass/Vol] 12.7 g/dL 12.0-15.0 [facility] Blood lymphocytes/100 leukoc ytesOrdered By: Ronni Sen on 03-07-2023 Lymphocytes/100 WBC (Bld) 28.5 % 19-41 [facility] Blood monocytes/100 leukocyt esOrdered By: Ronni Sen on 03-07-2023 Monocytes/100 WBC (Bld) 8.8 % 0-10 [facility] Blood platelet mean volumeOr dered By: Ronni Sen on 03-07-2023 Platelet mean volume (Bld) [Entitic vol] 10.7 fL 6.2-12.0 [facility] Determination of erythrocyte mean corpuscular volume (MCV)Ordered By: Ronni Sen on 03-07-2023 MCV (RBC) [Entitic vol] 100.2 fL 81-99 [facility] Hematocrit Auto (Bld) [Volum e fraction]Ordered By: Ronni Sen on 03-07-2023 Hematocrit (Bld) [Volume fraction] 40.9 % 37-47 [facility] Laboratory - Chemistry and C hemistry - challengeOrdered By: Ronnishiloh Sen on 03-07-2023 ALP [Catalytic activity/Vol] 48 U/L 45-117 [facility] ALT [Catalytic activity/Vol] 27 U/L 13-56 [facility] CO2 [Moles/Vol] 32.0 mmol/L 21.0-32.0 [facility] Free T4 [Mass/Vol] 0.77 ng/dL 0.76-1.46 [facility] Globulin (S) [Mass/Vol] 3.6 g/dL 2.2-4.2 [facility] Urea nitrogen/Creatinine [Mass ratio] 30.6 mg/mg 10-20 [facility] Laboratory - Hematology and Cell countsOrdered By: Ronni Sen on 03-07-2023 Erythrocyte distribution width (RBC) [Entitic vol] 47.7 fL 35.1-43.9 [facility] Erythrocyte distribution width (RBC) [Ratio] 13.0 % 11.6-14.6 [facility] Immature granulocytes/100 WBC (Bld) 0.300 % 0.0-0.9 [facility] Comment on above: IG% - Immature Granu locytes (promyelocytes, myelocytes and metamyelocytes) > 1% indicates that a LEFT SHIFT is Present. MCH (RBC) [Entitic mass] 31.1 pg 27.0-32.0 [facility] Nucleated RBC/100 WBC (Bld) [Ratio] 0 % 0-5 [facility] MCHC Auto (RBC) [Mass/Vol]Or dered By: Ronni Sen on 03-07-2023 MCHC (RBC) [Mass/Vol] 31.1 g/dL 32-36 [facility] No Panel InformationOrdered By: Ronni Sen on 03-07-2023 Estimated GFR (MDRD) Amer 95 mL/min >60 [facility] Comment on above: GFR Calc Estimated GFR (MDRD) Non-Af Amer 79 mL/min >60 [facility] Comment on above: Non- GFR Calc Thyroid Stimulating Hormone (TSH) 3.63 uIU/mL 0.358-3.74 [facility] Platelets bldOrdered By: Pito Sen on 03-07-2023 Platelets (Bld) [#/Vol] 205 10*3/uL 150-450 [facility] Serum or plasma albumin paul urement (mass/volume)Ordered By: Ronni Sen on 03-07-2023 Albumin [Mass/Vol] 3.6 g/dL 3.2-5.0 [facility] Serum or plasma albumin/glob ulin mass ratioOrdered By: Ronni Sen on 03-07-2023 Albumin/Globulin [Mass ratio] 1.0 {ratio} 0.9-2.4 [facility] Serum or plasma calcium paul urement (mass/volume)Ordered By: Ronni Sen on 03-07-2023 Calcium [Mass/Vol] 9.2 mg/dL 8.5-10.1 [facility] Serum or plasma creatinine m easurement (mass/volume)Ordered By: Ronni Sen on 03-07-2023 Creatinine [Mass/Vol] 0.75 mg/dL 0.55-1.02 [facility] Comment on above: The validity of the calculated GFR & GFRAA in patients over 70 years has not been determined. Clinical correlation is essential. Serum or plasma urea nitroge n measurement (mass/volume)Ordered By: Ronni Sen on 03-07-2023 Urea nitrogen [Mass/Vol] 23 mg/dL 7-18 [facility] Thin prep Papanicolaou smear with manual screeningOrdered By: Ronni Sen on 03-07-2023 Thin prep Papanicolaou smear with manual screening 31 U/L 15-37 [facility] Thin prep Papanicolaou smear with manual screening 4 5-15 [facility] Basophil percentageOrdered B y: Dr. Sen on 12-05-2022 Basophil percentage 5-10 SEEN /hpf 0-5 [facility] Bilirubin Test strip Ql (U)O rdered By: Dr. Sen on 12-05-2022 Bilirubin Ql (U) Negative Negative [facility] Ketones Test strip Ql (U)Ord ered By: Dr. Sen on 12-05-2022 Ketones Ql (U) Negative Negative [facility] Mucus LM Ql (Urine sed)Order ed By: Dr. Sen on 12-05-2022 Mucus Ql (Urine sed) 0 SEEN /hpf [facility] Nitrite Test strip Ql (U)Ord ered By: Dr. Sen on 12-05-2022 Nitrite Ql (U) Negative Negative [facility] No Panel InformationOrdered By: Dr. Sen on 12-05-2022 Vitamin D 25-Hydroxy 58.7 ng/mL [facility] Comment on above: Vitamin D 25(OH) Sta tus Range Deficiency <20 ng/mL (50nmol/L) Insufficiency 20 - 30 ng/mL (50 - 75 nmol/L) Sufficiency 30 - 100 ng/mL (75 - 250 nmol/L) Toxicity >100 ng/mL (>250 nmol/L) Protein Test strip Ql (U)Ord ered By: Dr. Sen on 12-05-2022 Protein Ql (U) Negative Negative [facility] Squamous epithelial cells de tection in urine sediment by light microscopyOrdered By: Dr. Sen on 12-05-2022 Epithelial cells.squamous LM Ql (Urine sed) 0-5 SEEN /hpf 5-10 [facility] Urine blood detectionOrdered By: Dr. Sen on 12-05-2022 RBC Ql (U) 10 /ul Negative [facility] RBC Ql (U) 0 SEEN /hpf 0-5 [facility] Urine clarityOrdered By: Dr. Sen on 12-05-2022 Clarity (U) Clear Clear [facility] Urine color determinationOrd ered By: Dr. Sen on 12-05-2022 Color (U) Yellow Yellow [facility] Urine glucose detectionOrder ed By: Dr. Sen on 12-05-2022 Glucose Ql (U) Normal mg/dl Normal [facility] Urine leukocyte esterase det ection by dipstickOrdered By: Dr. Sen on 12-05-2022 Leukocyte esterase Test strip Ql (U) 500 /ul Negative [facility] Urine pHOrdered By: Dr. Elsa johnson on 12-05-2022 pH (U) 6.0 [pH] 5.0 - 8.0 [facility] Urine sediment bacteria coun t by microscopy (number/high power field)Ordered By: Dr. Sen on 12-05-2022 Bacteria LM.HPF (Urine sed) [#/Area] RARE /hpf None Seen [facility] Urine specific gravity measu rementOrdered By: Dr. Sen on 12-05-2022 Specific gravity (U) [Rel density] 1.010 1.002-1.03 0 [facility] Urobilinogen Auto test strip Ql (U)Ordered By: Dr. Sen on 12-05-2022 Urobilinogen Ql (U) Normal mg/dl Normal [facility] Basophil percentageon 2021 Bilirubin [Mass/Vol] 0.80 mg/dL 0.20-1.00 [facility] Work Phone: Comment on above: For patients on eltr ombopag therapy, use of Dimension Kirby TBIL is not recommended. Chloride [Moles/Vol] 102 mmol/L 98-107 [facility] Work Phone: Cholesterol [Mass/Vol] 159 mg/dL <200 [facility] Work Phone: Comment on above: <200 mg/dL Desirable 200-240 mg/dL Borderline >240 mg/dL High Risk Glucose [Mass/Vol] 78 mg/dL 74-106 [facility] Work Phone: Potassium [Moles/Vol] 4.5 mmol/L 3.5-5.1 [facility] Work Phone: Protein [Mass/Vol] 6.8 g/dL 6.4-8.2 [facility] Work Phone: Sodium [Moles/Vol] 139 mmol/L 136-145 [facility] Work Phone: Triglyceride [Mass/Vol] 119 mg/dL [facility] Work Phone: Comment on above: The drugs N-Acetylcy steine and Metamizole may falsely depress this assay.Serum Triglycerides Reference Interval Normal <150 mg/dL Borderline high 150 - 199 mg/dL High 200 - 499 mg/dL Very High > or = 500 mg/dL WBC (Bld) [#/Vol] 4.7 10*3/uL 4.4-11.0 [facility] Work Phone: Blood erythrocytes count (nu mber/volume)on 01-17-2022 RBC (Bld) [#/Vol] 3.97 10*6/uL 4.2-5.4 [facility] Work Phone: Blood hemoglobin measurement (mass/volume)on 01-17-2022 Hemoglobin (Bld) [Mass/Vol] 12.8 g/dL 12.0-15.0 [facility] Work Phone: Blood platelet mean volumeon 01-17-2022 Platelet mean volume (Bld) [Entitic vol] 10.9 fL 6.2-12.0 [facility] Work Phone: Determination of erythrocyte mean corpuscular volume (MCV)on 01-17-2022 MCV (RBC) [Entitic vol] 101.0 fL 81-99 [facility] Work Phone: Hematocrit Auto (Bld) [Volum e fraction]on 01-17-2022 Hematocrit (Bld) [Volume fraction] 40.1 % 37-47 [facility] Work Phone: Laboratory - Chemistry and C hemistry - challengeon 01-17-2022 ALP [Catalytic activity/Vol] 53 U/L 45-117 [facility] Work Phone: ALT [Catalytic activity/Vol] 28 U/L 13-56 [facility] Work Phone: CO2 [Moles/Vol] 33.0 mmol/L 21.0-32.0 [facility] Work Phone: Globulin (S) [Mass/Vol] 3.2 g/dL 2.2-4.2 [facility] Work Phone: Urea nitrogen/Creatinine [Mass ratio] 25.6 mg/mg 10-20 [facility] Work Phone: Laboratory - Hematology and Cell countson 01-17-2022 Erythrocyte distribution width (RBC) [Entitic vol] 51.3 fL 35.1-43.9 [facility] Work Phone: Erythrocyte distribution width (RBC) [Ratio] 13.7 % 11.6-14.6 [facility] Work Phone: MCH (RBC) [Entitic mass] 32.2 pg 27.0-32.0 [facility] Work Phone: MCHC Auto (RBC) [Mass/Vol]on 01-17-2022 MCHC (RBC) [Mass/Vol] 31.9 g/dL 32-36 [facility] Work Phone: No Panel Informationon 01-17 Digoxin Level 1.29 ng/mL 0.80-2.00 [facility] Work Phone: Estimated GFR (MDRD) Amer 82 mL/min >60 [facility] Work Phone: Comment on above: GFR Calc Estimated GFR (MDRD) Non-Af Amer 68 mL/min >60 [facility] Work Phone: Comment on above: Non- GFR Calc Platelets bldon 01-17-2022 Platelets (Bld) [#/Vol] 171 10*3/uL 150-450 [facility] Work Phone: Serum or plasma albumin paul urement (mass/volume)on 01-17-2022 Albumin [Mass/Vol] 3.6 g/dL 3.2-5.0 [facility] Work Phone: Serum or plasma albumin/glob ulin mass ratioon 01-17-2022 Albumin/Globulin [Mass ratio] 1.1 {ratio} 0.9-2.4 [facility] Work Phone: Serum or plasma calcium paul urement (mass/volume)on 01-17-2022 Calcium [Mass/Vol] 9.2 mg/dL 8.5-10.1 [facility] Work Phone: Serum or plasma cholesterol in HDL measurement (mass/volume)on 01-17-2022 Cholesterol in HDL [Mass/Vol] 64 mg/dL [facility] Work Phone: Comment on above: The drugs N-Acetylcy steine and Metamizole may falsely depress this assay. Reference Range HDL <40 mg/dL Low HDL Cholesterol HDL >or= 60 mg/dL High HDL Cholesterol Serum or plasma cholesterol in VLDL measurement (mass/volume)on 01-17-2022 Cholesterol in VLDL [Mass/Vol] 24 mg/dL 5-40 [facility] Work Phone: Serum or plasma creatinine m easurement (mass/volume)on 01-17-2022 Creatinine [Mass/Vol] 0.86 mg/dL 0.55-1.02 [facility] Work Phone: Comment on above: The validity of the calculated GFR & GFRAA in patients over 70 years has not been determined. Clinical correlation is essential. Serum or plasma low density lipoprotein (LDL) cholesterol measurement (mass/volume)on 01-17-2022 Cholesterol in LDL [Mass/Vol] 71 mg/dL 0-130 [facility] Work Phone: Serum or plasma urea nitroge n measurement (mass/volume)on 01-17-2022 Urea nitrogen [Mass/Vol] 22 mg/dL 7-18 [facility] Work Phone: Thin prep Papanicolaou smear with manual screeningon 01-17-2022 Thin prep Papanicolaou smear with manual screening 33 U/L 15-37 [facility] Work Phone: Thin prep Papanicolaou smear with manual screening 4 5-15 [facility] Work Phone: History and Physical - [...] Last Updated: 19-Jun-2019 06:31 by Isreal Sanon) [facility] Preop Checkliston 06-19-2019 Preop Checklist Preop Checklist: Preop Checklist: Arrival [id number] Arrival Time07:05 NPO [id number] 04:30 NPO Commentsip of water with meds [...] Communication: Language / CommunicationEnglish Electronic Signatures: Kerrie Hill) (Signed 19-Jun-2019 07:40) Authored: Preop Checklist Last Updated: 19-Jun-2019 07:40 by Kerrie iHll (SHEYLA) [facility] Patient Profile - Preop v2on 06-18-2019 Patient Profile - Preop v2 Profile: Initial Info: How to be AddressedMalinda Spoken Language PreferredEnglish Source of Informationpatient Are you currently using the Personal Electronic Health Record or Lizhino Are you interested in learning more about [facility] for the management of your healthnot at this time Instructions Givenappropriate clothing, 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 Are there any cultural, spiritual, lutheran practices/values/needs that are important for us to knowno Do you want a visit/item from [facility] Would you like your Kiln Worker/Marketing Program Coordinator notifiedno Pain Scalenumerical 0-10 Pain Scale Educationteaching [...] of digestive tract Electronic Signatures: Kerrie Hill (RN) (Signed 19-Jun-2019 07:29) Authored: Profile, Additional Information Theresa Hernandez) (Signed 18-Jun-2019 10:11) Authored: Profile, Additional Information Last Updated: 19-Jun-2019 07:29 by Kerrie Hill (RN) [facility] LIPIDon 05-16-2018 Cholesterol in HDL mass conc 96 mg/dL High 40-60 [facility] ([place]) Comment on above: Performed By: #### L IPID ####[address] [address] Cholesterol in LDL mass conc 109 mg/dL Normal 0-130 [facility] ([place]) Comment on above: Performed By: #### L IPID ####[facility] [place] [address] Cholesterol mass conc 213 mg/dL High 0-200 [facility] ([place]) Comment on above: Result Comment: Chol esterol Reference Interval:Less than 200 [id number] Borderline high [id number] and above High risk Performed By: #### L IPID ####[facility] [place] [address] Triglyceride mass conc 41 mg/dL Normal 0-150 [facility] ([place]) Comment on above: Result Comment: Trig lyceride Reference Interval:Less than 150 [id number] Borderline high [id number] High [id number] or higher Very high risk Performed By: #### L IPID ####[place] [id number] [place], [place] [id number] [place] MYOCARDIAL SPECT STRESS/R ESTon 05-16-2018 NM [...] AM Sign Date: 05/16/2018 11:39:10 AM Normal [facility] ([place]) Surprise Stress Teston 05-16 Surprise Stress Test Normal Count includes the [facility]) FT4on 02-20-2018 T4 free mass conc 0.9 ng/mL Normal 0.6-1.7 [facility] ([place]) Comment on above: Result Comment: Claudia w normal(expected)range Performed By: #### T SH, FT4 ####[facility] [place], [place] [address]#### T3 ####[place] [id number] [place], [place] [id number] T3on 02-20-2018 Total T3 113 ng/dL Normal 60-181 [facility] ([place]) Comment on above: Result Comment: Antonietta pollock note ? as of 03/17/17 new pediatric reference intervals were added for this test. Performed By: #### T SH, FT4 ####[facility] [place] [place], [place] [address]#### T3 ####[place] [id number] [place] [address] TSHon 02-20-2018 Thyrotropin Qn 1.90 mcIU/mL Normal 0.27-4.20 [facility] ([place]) Comment on above: Performed By: #### T SH, FT4 ####[place] [place], [place] [address]#### T3 ####[place] [id number] [place] [address] Vital Signs Date Time Vital Sign Value Performing Clinician Rob castro 06-04-2025 07:51-0400 Body height 167.[address] Ronni Sen DO Work Phone: [facility] 06-04-2025 07:51-0400 Body mass index (BMI) [Ratio] 16.7 kg/m2 Dr. Ronni Sen DO Work Phone: [facility] 06-04-2025 07:51-0400 Body weight 47.[address] Ronni Sen DO Work Phone: [facility] 06-04-2025 07:51-0400 Diastolic blood pressure 61 mm[Hg] Dr. Ronni Sen DO Work Phone: [facility] 06-04-2025 07:51-0400 Heart rate 66 /min Dr. Ronni Sen DO Work Phone: [facility] 06-04-2025 07:51-0400 Respiratory rate 16 /min Dr. Ronni Sen DO Work Phone: [facility] 06-04-2025 07:51-0400 SaO2% (BldA) [Mass fraction] 94 % Dr. Ronni Sen DO Work Phone: [facility] 06-04-2025 07:51-0400 Systolic blood pressure 99 mm[Hg] Dr. Ronni Sen DO Work Phone: [facility] 04-22-2025 11:19-0400 Body height 167.[address] Ronni Sen DO Work Phone: [facility] 04-22-2025 11:19-0400 Body mass index (BMI) [Ratio] 16.9 kg/m2 Dr. Ronni Sen DO Work Phone: [facility] 04-22-2025 11:19-0400 Body temperature 96.2 [degF] Dr. Ronni Sen DO Work Phone: [facility] 04-22-2025 11:19-0400 Body weight 47.[address] Ronni Sen DO Work Phone: [facility] 04-22-2025 11:19-0400 Diastolic blood pressure 60 mm[Hg] Dr. Ronni Sen DO Work Phone: [facility] 04-22-2025 11:19-0400 Heart rate 82 /min Dr. Ronni Sen DO Work Phone: [facility] 04-22-2025 11:19-0400 Respiratory rate 18 /min Dr. Ronni Sen DO Work Phone: [facility] 04-22-2025 11:19-0400 SaO2% (BldA) [Mass fraction] 97 % Dr. Ronni Sen DO Work Phone: [facility] 04-22-2025 11:19-0400 Systolic blood pressure 120 mm[Hg] Dr. Ronni Sen DO Work Phone: [facility] 04-22-2025 09:42-0400 Body height [address] Ronni Sen DO Work Phone: [facility] 04-22-2025 09:42-0400 Body mass index (BMI) [Ratio] 16.3 kg/m2 Dr. Ronni Sen DO Work Phone: [facility] 04-22-2025 09:42-0400 Body weight 47.[address] Ronni Sen DO Work Phone: [facility] 04-22-2025 09:42-0400 Diastolic blood pressure 69 mm[Hg] Dr. Ronni Sen DO Work Phone: [facility] 04-22-2025 09:42-0400 Heart rate 83 /min Dr. Ronni Sen DO Work Phone: [facility] 04-22-2025 09:42-0400 Respiratory rate 16 /min Dr. Ronni Sen DO Work Phone: [facility] 04-22-2025 09:42-0400 SaO2% (BldA) [Mass fraction] 96 % Dr. Ronni Sen DO Work Phone: [facility] 04-22-2025 09:42-0400 Systolic blood pressure 110 mm[Hg] Dr. Ronni Sen DO Work Phone: [facility] 03-18-2025 14:48-0400 Body height [address] Ronni Sen DO Work Phone: [facility] 03-18-2025 14:48-0400 Body mass index (BMI) [Ratio] 16.6 kg/m2 Dr. Ronni Sen DO Work Phone: [facility] 03-18-2025 14:48-0400 Body weight 48.[address] Ronni Sen DO Work Phone: [facility] 03-18-2025 14:48-0400 Diastolic blood pressure 59 mm[Hg] Dr. Ronni Sen DO Work Phone: [facility] 03-18-2025 14:48-0400 Heart rate 94 /min Dr. Ronni Sen DO Work Phone: [facility] 03-18-2025 14:48-0400 Respiratory rate 16 /min Dr. Ronni Sen DO Work Phone: [facility] 03-18-2025 14:48-0400 Systolic blood pressure 93 mm[Hg] Dr. Ronni Sen DO Work Phone: [facility] 01-22-2025 06:55-0400 Body height [address] Ronni Sen DO Work Phone: [facility] 01-22-2025 06:55-0400 Body mass index (BMI) [Ratio] 17.1 kg/m2 Dr. Ronni Sen DO Work Phone: [facility] 01-22-2025 06:55-0400 Body weight 49.[address] Ronni Sen DO Work Phone: [facility] 01-22-2025 06:55-0400 Diastolic blood pressure 62 mm[Hg] Dr. Ronni Sen DO Work Phone: [facility] 01-22-2025 06:55-0400 Heart rate 85 /min Dr. Ronni Sen DO Work Phone: [facility] 01-22-2025 06:55-0400 Respiratory rate 18 /min Dr. Ronni Sen DO Work Phone: [facility] 01-22-2025 06:55-0400 SaO2% (BldA) [Mass fraction] 95 % Dr. Ronni Sen DO Work Phone: [facility] 01-22-2025 06:55-0400 Systolic blood pressure 109 mm[Hg] Dr. Ronni Sen DO Work Phone: [facility] 01-20-2025 15:11-0400 Body temperature 98 [degF] Dr. Ronni Sen DO Work Phone: [facility] 01-20-2025 15:11-0400 Diastolic blood pressure 83 mm[Hg] Dr. Ronni Sen DO Work Phone: [facility] 01-20-2025 15:11-0400 Heart rate 90 /min Dr. Ronni Sen DO Work Phone: [facility] 01-20-2025 15:11-0400 Respiratory rate 16 /min Dr. Ronni Sen DO Work Phone: [facility] 01-20-2025 15:11-0400 SaO2% (BldA) [Mass fraction] 92 % Dr. Ronni Sen DO Work Phone: [facility] 01-20-2025 15:11-0400 Systolic blood pressure 127 mm[Hg] Dr. Ronni Sen DO Work Phone: [facility] 01-20-2025 11:48-0400 Body height [address] Ronni Sen DO Work Phone: [facility] 01-20-2025 11:48-0400 Body mass index (BMI) [Ratio] 17.5 kg/m2 Dr. Ronni Sen DO Work Phone: [facility] 01-20-2025 11:48-0400 Body weight 50.[address] Ronni Sen DO Work Phone: [facility] 12-05-2024 11:42-0400 Diastolic blood pressure 76 mm[Hg] Dr. Ronni Sen DO Work Phone: [facility] 12-05-2024 11:42-0400 Heart rate 77 /min Dr. Ronni Sen DO Work Phone: [facility] 12-05-2024 11:42-0400 Respiratory rate 16 /min Dr. Ronni Sen DO Work Phone: [facility] 12-05-2024 11:42-0400 SaO2% (BldA) [Mass fraction] 96 % Dr. Ronni Sen DO Work Phone: [facility] 12-05-2024 11:42-0400 Systolic blood pressure 118 mm[Hg] Dr. Ronni Sen DO Work Phone: [facility] 10-08-2024 11:18-0500 Body mass index (BMI) [Ratio] 16.9 kg/m2 Dr. Ronni Sen DO Work Phone: [facility] 10-08-2024 11:18-0500 Body temperature 98.5 [degF] Dr. Ronni Sen DO Work Phone: [facility] 10-08-2024 11:18-0500 Body weight 48.[address] Ronni Sen DO Work Phone: [facility] 10-08-2024 11:18-0500 Diastolic blood pressure 54 mm[Hg] Dr. Ronni Sen DO Work Phone: [facility] 10-08-2024 11:18-0500 Heart rate 75 /min Dr. Ronni Sen DO Work Phone: [facility] 10-08-2024 11:18-0500 Respiratory rate 16 /min Dr. Ronni Sen DO Work Phone: [facility] 10-08-2024 11:18-0500 SaO2% (BldA) [Mass fraction] 97 % Dr. Ronni Sen DO Work Phone: [facility] 10-08-2024 11:18-0500 Systolic blood pressure 108 mm[Hg] Dr. Ronni Sen DO Work Phone: [facility] 04-30-2023 14:36-0400 Body height 170.[address] Ronni Sen Work Phone: [facility] 04-30-2023 14:36-0400 Body mass index (BMI) [Ratio] 16.4 kg/m2 Dr. Ronni Sen Work Phone: [facility] 04-30-2023 14:36-0400 Body weight 47.[address] Ronni Sen Work Phone: [facility] 04-30-2023 14:36-0400 Diastolic blood pressure 60 mm[Hg] Dr. Ronni Sen Work Phone: [facility] 04-30-2023 14:36-0400 Heart rate 64 /min Dr. Ronni Sen Work Phone: [facility] 04-30-2023 14:36-0400 Respiratory rate 18 /min Dr. Ronni Sen Work Phone: [facility] 04-30-2023 14:36-0400 SaO2% (BldA) [Mass fraction] 95 % Dr. Ronni Sen Work Phone: [facility] 04-30-2023 14:36-0400 Systolic blood pressure 118 mm[Hg] Dr. Ronni Sen Work Phone: [facility] 03-07-2023 14:05-0400 Body height 170.[address] Ronni Sen Work Phone: [facility] 03-07-2023 14:05-0400 Body mass index (BMI) [Ratio] 16.2 kg/m2 Dr. Ronni Sen Work Phone: [facility] 03-07-2023 14:05-0400 Body temperature 98 [degF] Dr. Ronni Sen Work Phone: [facility] 03-07-2023 14:05-0400 Body weight 46.[address] Ronni Sen Work Phone: [facility] 03-07-2023 14:05-0400 Diastolic blood pressure 62 mm[Hg] Dr. Ronni Sen Work Phone: [facility] 03-07-2023 14:05-0400 Heart rate 62 /min Dr. Ronni Sen Work Phone: [facility] 03-07-2023 14:05-0400 Respiratory rate 16 /min Dr. Ronni Sen Work Phone: [facility] 03-07-2023 14:05-0400 SaO2% (BldA) [Mass fraction] 98 % Dr. Ronni Sen Work Phone: [facility] 03-07-2023 14:05-0400 Systolic blood pressure 108 mm[Hg] Dr. Ronni Sen Work Phone: [facility] 12-05-2022 15:00-0400 Body height 170.[address] Ronni Sen Work Phone: [facility] 12-05-2022 15:00-0400 Body mass index (BMI) [Ratio] 16.9 kg/m2 Dr. Ronni Sen Work Phone: [facility] 12-05-2022 15:00-0400 Body temperature 98.1 [degF] Dr. Ronni Sen Work Phone: [facility] 12-05-2022 15:00-0400 Body weight 48.[address] Ronni Sen Work Phone: [facility] 12-05-2022 15:00-0400 Diastolic blood pressure 60 mm[Hg] Dr. Ronni Sen Work Phone: [facility] 12-05-2022 15:00-0400 Heart rate 59 /min Dr. Ronni Sen Work Phone: [facility] 12-05-2022 15:00-0400 Respiratory rate 16 /min Dr. Ronni Sen Work Phone: [facility] 12-05-2022 15:00-0400 SaO2% (BldA) [Mass fraction] 96 % Dr. Ronni Sen Work Phone: [facility] 12-05-2022 15:00-0400 Systolic blood pressure 110 mm[Hg] Dr. Ronni Sen Work Phone: [facility] 10-25-2022 11:30-0500 Body mass index (BMI) [Ratio] 16.7 kg/m2 Dr. Ronni Sen Work Phone: [facility] 10-25-2022 11:30-0500 Body weight 48.[address] Ronni Sen Work Phone: [facility] 10-25-2022 11:30-0500 Diastolic blood pressure 60 mm[Hg] Dr. Ronni Sen Work Phone: [facility] 10-25-2022 11:30-0500 Heart rate 64 /min Dr. Ronni Sen Work Phone: [facility] 10-25-2022 11:30-0500 Respiratory rate 18 /min Dr. Ronni Sen Work Phone: [facility] 10-25-2022 11:30-0500 Systolic blood pressure 110 mm[Hg] Dr. Ronni Sen Work Phone: [facility] 08-15-2022 10:40-0500 Body temperature 97.6 [degF] Dr. Ronni Sen Work Phone: [facility] 08-15-2022 10:40-0500 Body weight 48.[address] Ronni Sen Work Phone: [facility] 08-15-2022 10:40-0500 Diastolic blood pressure 54 mm[Hg] Dr. Ronni Sen Work Phone: [facility] 08-15-2022 10:40-0500 Heart rate 57 /min Dr. Ronni Sen Work Phone: [facility] 08-15-2022 10:40-0500 Respiratory rate 16 /min Dr. Ronni Sen Work Phone: [facility] 08-15-2022 10:40-0500 SaO2% (BldA) [Mass fraction] 91 % Dr. Ronni Sen Work Phone: [facility] 08-15-2022 10:40-0500 Systolic blood pressure 102 mm[Hg] Dr. Ronni Sen Work Phone: [facility] 06-01-2022 13:14-0400 Body height 170.[address] Ronni Sen Work Phone: [facility] 01-17-2022 10:37-0400 Body height 170.[address] Ronni Sen Work Phone: [facility] Work Phone: 01-17-2022 10:37-0400 Body mass index (BMI) [Ratio] 16.6 kg/m2 Dr. Ronni Sen Work Phone: [facility] Work Phone: 01-17-2022 10:37-0400 Body temperature 98.1 [degF] Dr. Ronni Sen Work Phone: [facility] Work Phone: 01-17-2022 10:37-0400 Body weight 48.[address] Ronni Sen Work Phone: [facility] Work Phone: 01-17-2022 10:37-0400 Diastolic blood pressure 60 mm[Hg] Dr. Ronni Sen Work Phone: [facility] Work Phone: 01-17-2022 10:37-0400 Heart rate 47 /min Dr. Ronni Sen Work Phone: [facility] Work Phone: 01-17-2022 10:37-0400 Respiratory rate 14 /min Dr. Ronni Sen Work Phone: [facility] Work Phone: 01-17-2022 10:37-0400 SaO2% (BldA) [Mass fraction] 96 % Dr. Ronni Sen Work Phone: [facility] Work Phone: 01-17-2022 10:37-0400 Systolic blood pressure 108 mm[Hg] Dr. Ronni Sen Work Phone: [facility] Work Phone: 10-25-2021 13:17-0500 Body mass index (BMI) [Ratio] 16.6 kg/m2 Dr. Ronni Sen Work Phone: [facility] Work Phone: 10-25-2021 13:17-0500 Body temperature 96.6 [degF] Dr. Ronni Sen Work Phone: [facility] Work Phone: 10-25-2021 13:17-0500 Body weight 48.[address] Ronni Sen Work Phone: [facility] Work Phone: 10-25-2021 13:17-0500 Diastolic blood pressure 60 mm[Hg] Dr. Ronni Sen Work Phone: [facility] Work Phone: 10-25-2021 13:17-0500 Heart rate 70 /min Dr. Ronni Sen Work Phone: [facility] Work Phone: 10-25-2021 13:17-0500 Respiratory rate 16 /min Dr. Ronni Sen Work Phone: [facility] Work Phone: 10-25-2021 13:17-0500 SaO2% (BldA) [Mass fraction] 98 % Dr. Ronni Sen Work Phone: [facility] Work Phone: 10-25-2021 13:17-0500 Systolic blood pressure 110 mm[Hg] Dr. Ronni Sen Work Phone: [facility] Work Phone: Encounters Encounter Date Encounter Type Care Provider Facility Start: 06-16-2025 End: 06-16-2025 ambulatory Ronni Sen Facility:[facility] Start: 06-04-2025 End: 06-04-2025 Patient encounter procedure Soraya ALMANZA -[facility] Work Phone: Start: 06-04-2025 End: 06-04-[address] Ronni Sen DO Work Phone: -[facility] Start: 04-22-2025 End: 04-22-[address] Ronni Sen DO Work Phone: -[facility] Start: 04-22-2025 End: 04-22-[address] Ronni Johnson DO -[facility] Work Phone: Start: 04-22-2025 End: 04-22-2025 Patient encounter procedure Soraya ALMANZA -[facility] Work Phone: Start: 04-22-2025 End: 04-22-[address] Ronni Sen DO Work Phone: -[facility] Start: 04-22-2025 End: 04-22-2025 ambulatory Soraya ALMANZA Facility:[facility] Start: 04-10-2025 End: 04-13-2025 Evaluation and management of inpatient UMANG LUTHER RASHEEDA [facility] Start: 03-18-2025 End: 03-18-2025 Patient encounter procedure Soraya ALMANZA -[facility] Work Phone: Start: 03-18-2025 End: 03-18-[address] Ronni Sen DO Work Phone: -[facility] Start: 03-03-2025 ambulatory Jasper Julian Facility:[facility] Start: 03-03-2025 Non-patient / Non-visit Dr. Fiorella L[facility]HER -[facility] Start: 03-03-2025 End: 03-03-[address] Ronni Sen DO Work Phone: -[facility] Start: 03-03-2025 End: 03-03-2025 Patient encounter procedure Soraya ALMANZA -[facility] Work Phone: Start: 03-03-2025 End: 03-03-2025 ambulatory Ronni Sen Facility:[facility] Start: 01-22-2025 End: 01-22-2025 Patient encounter procedure Soraya ALMANZA -[facility] Work Phone: Start: 01-22-2025 End: 01-22-2025 ambulatory Ronni Sen Facility:[facility] Start: 01-20-2025 End: 01-20-2025 Emergency department patient visit Dr. Ronni Sen DO Work Phone: -Emergency Department Work Phone: Start: 12-05-2024 End: 12-05-[address] Goyo Díaz MD -[facility] Work Phone: Start: 12-05-2024 End: 12-05-2024 ambulatory Ronni Sen Facility:[facility] Start: 10-08-2024 End: 10-08-[address] Ronni Johnson DO -[facility] Work Phone: Start: 10-08-2024 End: 10-08-2024 ambulatory Ronni Sen Facility:[facility] Start: 09-15-2024 End: 09-15-2024 ambulatory Ronni Sen Facility:[facility] Start: 07-09-2024 End: 07-09-2024 ambulatory Ronni Sen Facility:[facility] Start: 07-09-2024 End: 07-09-2024 ambulatory Ronni Sen Facility:[facility] Start: 05-24-2023 End: 05-24-[address] Ronni Sen Work Phone: [facility] Work Phone: Start: 05-23-2023 Non-patient / Non-visit Dr. Parker Work Phone: [facility] Work Phone: Start: 05-21-2023 Non-patient / Non-visit Dr. Parker Work Phone: [facility] Start: 05-21-2023 End: 05-21-[address] Ronni Sen Work Phone: [facility] Work Phone: Start: 05-21-2023 End: 05-21-[address] [facility] Start: 04-30-2023 End: 04-30-[address] Ronni Sen Work Phone: [facility] Work Phone: Start: 03-07-2023 End: 03-07-[address] Ronni Sen Work Phone: [facility] Work Phone: Start: 03-07-2023 End: 03-07-[address] Ronni Sen Work Phone: [facility] Work Phone: Start: 02-14-2023 End: 02-14-[address] Ronni Sen Work Phone: [facility] Work Phone: Start: 01-10-2023 End: 01-10-[address] Ronni Sen Work Phone: [facility] Work Phone: Start: 12-05-2022 End: 12-05-[address] Ronni Sen Work Phone: [facility] Work Phone: Start: 12-05-2022 End: 12-05-[address] Ronni Sen Work Phone: [facility] Start: 10-25-2022 End: 10-25-[address] Ronni Sen Work Phone: [facility] Start: 10-25-2022 End: 10-25-[address] Ronni Sen Work Phone: [facility] Start: 09-21-2022 End: 09-21-[address] Ronni Sen Work Phone: [facility] Start: 09-05-2022 End: 09-05-[address] Ronni Sen Work Phone: [facility] Work Phone: Start: 09-05-2022 End: 09-05-[address] Ronni Sen Work Phone: [facility] Start: 08-15-2022 End: 08-15-[address] Ronni Sen Work Phone: [facility] Start: 07-14-2022 End: 07-14-[address] Ronni Sen Work Phone: [facility] Start: 06-01-2022 End: 06-01-[address] Ronni Sen Work Phone: [facility] Start: 01-17-2022 End: 01-17-[address] Rnoni Sen Work Phone: [facility] Start: 10-25-2021 End: 10-25-[address] Ronni Sen Work Phone: [facility] Start: 10-01-2021 End: 10-01-2021 Emergency department patient visit Dr. Ronni Sen Work Phone: [facility]Emergency Department Start: 05-16-2018 End: 05-17-2018 Patient encounter LUCY WRIGHT Facility:[facility] Start: 05-16-2018 End: 05-17-2018 Patient encounter LUCY WRIGHT Facility:[facility] Start: 02-20-2018 End: 02-21-2018 Patient encounter [facility]UCY WRIGHT [facility] Procedures Date Procedure Procedure Detail Performing Clinician Start: 04-22-2025 X-ray of chest, PA a nd lateral views Dr. Ronni Sen DO Work Phone: Start: 04-10-2025 Urinalysis UMANG VANESSA Comment on above: Result Comment: URIN ALYSIS Performed By: #### 2 [id number] #### [facility],[address] [place] [address] Start: 01-20-2025 X-ray of chest, PA a nd lateral views Dr. Ronni Sen DO Work Phone: Start: 01-20-2025 D-dimer assay, quantitative Dr. Ronni Sen DO Work Phone: Comment on above: D-Dimer ELEVATED (>0 .49): Additional studies and clinicalassessments are indicated to conclude diagnosis of:Deep Vein Thrombosis (DVT) or Pulmonary Embolism (PE)CRITICAL VALUE CALLED TO A. MYERS01/20/25 1318 Gayatri Gonzalezey.RESULTS READ BACK BY SAME. Start: 01-20-[address] Ronni Sen DO Work Phone: Start: 12-05-2024 Evaluation of diagno stic study results Dr. Ronni Sen DO Work Phone: Start: 09-05-[address] Ronni Sen Work Phone: Plan of Treatment Date Care Activity Detail Author Start: 04-28-2025 Continuous pulse oximetry [facility] Start: 04-22-2025 X-ray of chest, PA a nd lateral views Chest PA and Lateral [facility] Start: 04-22-2025 XR Chest PA and Lateral [facility] Start: 01-20-2025 End: 01-20-2025 [facility] Start: 01-20-2025 [facility] Start: 08-15-2022 Patient referral [facility] Work Phone: Patient Education ED CHF Left Si de ED Dyspnea [facility] Work Phone: Patient referral [facility] Work Phone: Troponin T.cardiac [Mass/volume] in Serum or Plasma by High sensitivity method [facility] Payers Date Payer Category Payer Self-pay [id number] 2024 Medicare [id number] Unknown [id number] 2018 Medicare [id number] 1940 Unknown [id number] 2.16.8 [id number] Unknown [id number] Unknown [id number] 2.16.8 [id number] Unknown [id number] 2.16.8 40.1.465548.3.579.2.462 Unknown [id number] 2.16.8 40.1.212909.3.579.2.462 Unknown [id number] 2.16.8 40.1.789464.3.579.2.462 Unknown [id number] 2.16.8 40.1.555965.3.579.2.462 Unknown [id number] 2.16.8 40.1.481759.3.579.2.462 Unknown [id number] 2.16.8 40.1.639394.3.579.2.462 Unknown [id number] 2.16.8 40.1.349618.3.579.2.462 Unknown [id number] 2.16.8 40.1.125659.3.579.2.462 Unknown [id number] 2.16.8 40.1.362562.3.579.2.462 Unknown [id number] 2.16.8 40.1.030743.3.579.2.462 Unknown [id number] 2.16.8 40.1.029786.3.579.2.462 Unknown [id number] 2.16.8 40.1.356331.3.579.2.462 Unknown [id number] 2.16.8 40.1.796867.3.579.2.462 Unknown [id number] 2.16.8 40.1.082431.3.579.2.462 Unknown [id number] 2.16.8 40.1.148001.3.579.2.462 Social History Date Type Detail Facility Start: 01-17-2022 End: 05-24-2023 Tobacco smoking status NHIS Unknown if ever smoked [facility] Start: 07-28-2019 None [facility] Start: 07-28-2019 Spouse/ Signif icant Other [facility] Start: 07-28-2019 Non-smoker [facility] Start: 1940 Sex Assigned At Female [facility] Start: 01-20-2025 Tobacco smoking status NHIS Never smoked tobacco (finding) [facility] Sex Female [facility] Clinical Notes 09-28-2021 to 04-22-2025 Note Date & Type Note Facility 04-22-2025 Radiology Diagnostic study note [facility] Imaging Services [address] [place] [address] Chest PA and Lateral MR#: [id number] Acct: [id number] Name: MARIBEL SIMPSON Rep #: [id number] : 1940 From: Iron Bajwa MD PCP: Dr. Ronni Sen DO Status: RE G CLI Study:Chest PA and Lateral Date of Exam: 04/22/25 Exam# [id number] Ordering Dr: Soraya Winn PA PROCEDURE: CHEST PA AND LATERAL 04/22/2025 REASON FOR EXAM: PLEURAL EFFUSION TECHNIQUE: CHEST PA AND LATERAL COMPARISON: January 20, 2025, April 24, 2019 FINDINGS: The image is slightly overpenetrated. Hardware: None Heart: Top-normal size. Mediastinum: Enlargement of the main pulmonary arteries suggestive of pulmonary arterial hypertension Lungs: Bibasilar atelectasis and small effusions. This is stable to slightly decreased. Bones: Degenerative changes are identified within the thoracic spine. RAD/Chest PA and Lateral IMPRESSION: Bibasilar atelectasis and small effusions. Stable to slightly decreased. Top-normal heart size. Likely pulmonary arterial hypertension. Reading Location: [id number] CC: Dr. Ronni Sen DO; ARCHIE Thomas ~ Seed Technician: Signed [facility] 04-14-2025 Note [facility] PROGRESS NOTE NAME ACCOUNT SEX AGE ADMIT DISCHARGE PT MED. RECORD# NUMBER DATE DATE TYPE CALVIN [id number] F 85 04/10/25 1 MARIBEL [id number] ROOM: 302MO DATE OF : 1940 DICTATING PHYSICIAN: Jennifer Rodriguez DATE OF SERVICE: April 12, 2025 SUBJECTIVE: Mrs. Simpson complained about not having a bowel movement since Sunday. She did take some MiraLax, but on presentation she did have some diarrhea. She denied any abdominal pain. Her shortness of breath did improve, but she still feels weak. OBJECTIVE: VITAL SIGNS: Stable with blood pressure of 95/54, somewhat on the low side. Earlier, it was 123/82. Heart rate is 74. She is afebrile. HEENT: Unremarkable. LUNGS: Lungs are clear. HEART: The heart was regular. ABDOMEN: Abdomen was soft. EXTREMITIES: Extremities revealed no edema. DIAGNOSTIC DATA: Laboratory data revealed a white count of 6.6 and hemoglobin 12.8. Chemistries revealed a sodium of 134, potassium 3.2, BUN 19 and creatinine 0.77. ASSESSMENT/PLAN: 1. Acute congestive heart failure has improved with diuretics. The patient's BNP did respond and drop down. We will continue to monitor electrolytes. The echocardiogram is pending for tomorrow. 2. Hypokalemia. We will correct orally. 3. Some complaint about the patient not having a bowel movement. I did explain to her since she took the MiraLax when she had the diarrhea it is better to wait another day and then she will know about that. We will place an order for MiraLax if she gets constipated. Dictated By: Jennifer Rodriguez MD 04/12/25 13:08 JOB #: [id number] Transcribed By: merry 04/12/25 19:15 Electronically signed by: E-Sign: JENNIFER RODRIGUEZ MD 04/14/25 09:49 Page 1 of 1 MARIBEL SIMPSON Progress Note [facility] 03-18-2025 Evaluation note Diagnosis Onset Date Resolution (HFpEF) heart failure with preserved ejection fraction acute March 18, 2025 2:40pm Mitral insufficiency chronic March 18, 2025 2:40pm Persistent atrial fibrillation chronic March 18, 2025 2:40pm (HFpEF) heart failure with preserved ejection fraction acute April 22 9:21am Pleural effusion acute April 042024 9:21am Mitral insufficiency chronic Augu st 2024 9:21am Persistent atrial fibrillation chronic April 22 9:21am Pulmonary hypertension chronic Au dona 2024 9:21am (HFpEF) heart failure with preserved ejection fraction acute April 22 11:13am Nocturnal hypoxia acute April 22, 2025 11:13am Chronic back pain chronic April 22, 2025 11:13am (HFpEF) heart failure with preserved ejection fraction acute June 04 10:10am Pleural effusion acute June 04, 2025 10:10am Mitral insufficiency chronic Octo sarai 2024 10:10am Persistent atrial fibrillation chronic June 04 10:10am Pulmonary hypertension chronic Oc tober 2024 10:10am [facility] Work Phone: 1(806) 747-859905-22-2025 Evaluation note* Diagnosis Onset Date Resolution Status Admit Date (HFpEF) heart failure with preserved ejection fraction acute January 22, 2025 1:43pm Mitral insufficiency chronic January 22, 2025 1:43pm Persistent atrial fibrillation chron ic January 22, 2025 1:43pm (HFpEF) heart failure with preserved ejection fraction acute March 18, 2025 2:40pm Mitral insufficiency chronic March 18, 2025 2:40pm Persistent atrial fibrillation chron ic March 18, 2025 2:40pm (HFpEF) heart failure with preserved ejection fraction acute 2024 9:21am Pleural effusion chronic April 042024 9:21am Mitral insufficiency chronic 2024 9:21am Nonrheumatic mitral (valve) insufficiency chronic April 22 9:21am Persistent atrial fibrillation chron ic April 22, 2025 9:21am Pulmonary hypertension chronic [facility] 2024 9:21am [facility] Work Phone: 1(853) 211-585005-22-2025 Evaluation note* Diagnosis Onset Date Resolution Status Admit Date (HFpEF) heart failure with preserved ejection fraction acute January 22, 2025 1:43pm Mitral insufficiency chronic January 22, 2025 1:43pm Persistent atrial fibrillation chron ic January 22, 2025 1:43pm (HFpEF) heart failure with preserved ejection fraction acute March 18, 2025 2:40pm Mitral insufficiency chronic March 18, 2025 2:40pm Persistent atrial fibrillation chron ic March 18, 2025 2:40pm (HFpEF) heart failure with preserved ejection fraction acute 2024 9:21am Pleural effusion acute April 042024 9:21am Mitral insufficiency chronic Augu 2024 9:21am Persistent atrial fibrillation chron ic April 22, 2025 9:21am Pulmonary hypertension chronic [facility] 2024 9:21am Chronic back pain chronic April 22, 2025 11:13am [facility] Work Phone: 1(948) 473-773105-22-2025 Evaluation note* Diagnosis Onset Date Resolution Status Admit Date (HFpEF) heart failure with preserved ejection fraction acute January 22, 2025 1:43pm Mitral insufficiency chronic January 22, 2025 1:43pm Persistent atrial fibrillation chron ic January 22, 2025 1:43pm (HFpEF) heart failure with preserved ejection fraction acute March 18, 2025 2:40pm Mitral insufficiency chronic March 18, 2025 2:40pm Persistent atrial fibrillation chron ic March 18, 2025 2:40pm (HFpEF) heart failure with preserved ejection fraction acute 2024 9:21am Pleural effusion acute April 042024 9:21am Mitral insufficiency chronic 2024 9:21am Persistent atrial fibrillation chron ic April 22, 2025 9:21am Pulmonary hypertension chronic [facility] 2024 9:21am (HFpEF) heart failure with preserved ejection fraction acute 2024 11:13am Nocturnal hypoxia acute April 22, 2025 11:13am Chronic back pain chronic April 22, 2025 11:13am [facility] Work Phone: 1(669) 834-325605-20-2025 Discharge summary [facility] Medical Records Department [address] [place] [id number] Emergency Department Summary 01/20/25 MR#: [id number] Acct: [id number] Name: MARIBEL SIMPSON Rep #:[id number] : 1940 84 From: Laverne Francois PCP: Dr. Ronni Sen, DO Status:RE G ER Location: ED HPI History of Present Illness Chief Complaint: Shortness of Breath Informant: patient and family Narrative Narrative: Patient is an 84-year-old female with history of persistent atrial fibrillation (not on any anticoagulation), heart failure with preserved ejection fraction, mitral valve insufficiency, malnutrition,pulmonary hypertension and hypothyroidism presenting with shortness of [...] Denies any fever. Had the flu around [facility] but thatwas a month ago. Did recently go up on her Prozac from 10 mg to 20 mg on Sunday(4 days ago) is not sure if that is related. Has 50 been on Eliquis and digoxinfor A- fib but is no longer on any anticoagulation due to easy bleeding. Denies any history of DVT or PE. No other complaints or concerns reported at this time. Notes that she had a bad night last night and had a hard time breathing. Did receive Tylenol this morning which did help her right sided chest discomfort. [facility] Medical History (HFpEF) heart failure with [...] associated shortness of breath. Numerous subacute ongoing overthe past week or so. Differential includes heart [...] AST which is nonspecific and otherwise has anormal bilirubin and alkaline phosphatase. Her proBNP is elevated at 3460 however I do not have a prior to compare to. Lipase is normal. Low suspicion for referred cardiac symptoms. TSH mildly elevated 8.9 which could be consistent with some mild hypothyroid. Qasim not think this correlates with her symptoms today and I do not think presentation is consistent with thyroid storm ormyxedema coma. Most consistent with fluid overload. Chest [...] % (Auto) 68.5 Lymph % (Auto) 20.3 [place] % (Auto) 8.5 Eos % (Auto) 1.4 [...] atelectasisworse on the right side. Reading Location: [place] [address] Rhythm Strip Rhythm Strip: A-fib Rate: 93 Ectopy: None EKG Initial EKG: Attestation: I personally reviewed and interpreted this EKG as follows: Interpretation: Atrial Fibrillation Comments: Atrial fibrillation rate of 93 bpm Normal axis Normal intervals Normal ST segments Compared to prior EKG on 12/05/2024?no significant change Prior EKG tracings: available for review Prior: Unchanged Management Discussion w/another healthcare provider: [employer] (cardiology ) Discharge Plan Triage Chief Complaint: [...] your daily 20 mg also. Print Language: Senegalese Disposition Disposition: Home, Self Care What to do if you have Problems For any increased pain, shortness of breath, bleeding, nausea or vomiting, chestpain, or any unexpected problems, contact your Primary Care Provider. Call [facility] ([phone]) or report tothe closest Emergency Room. Call 911 if necessary. 01/20/25 1506 Cosigner Signature (if applicable): CC: Dr. Ronni Sen DO ~ Signed [facility]05-20-2025 Radiology Diagnostic study note [facility] Imaging Services [address] [place], [place] [address] Chest PA and Lateral MR#: [id number] Acct: [id number] Name: MARIBEL SIMPSON Rep #: [id number] : 1940 F 84 From: Sony Araujo MD PCP: Dr. Ronni Sen DO Status: RE G ER Study:Chest PA and Lateral Date of Exam: 01/20/25 Exam# [id number] Ordering Dr: Geovany Elena DO PROCEDURE: CHEST [...] atelectasisworse on the right side. Reading Location: [place] [address] CC: Dr. Laverne Elena DO; Dr. Ronni Sen DO ~ Seed Technician: Signed [facility]05-20-2025 Discharge summary [facility] Note Date/Time January 20, 2025 3:06p m [facility] Medical Records Department [address] [place] [address] Emergency Department Summary 01/20/25 MR#: [id number] Acct: [id number] Name: MARIBEL SIMPSON Rep #:[id number] : 1940 84 From: Laverne Francois PCP: Dr. Ronni Sen, Status:RE G ER Location: ED HPI History [...] Denies any fever. Had the flu around [facility] but thatwas a month ago. Did [...] did help her right sided chest discomfort. [facility] Medical History (HFpEF) heart failure with [...] % (Auto) 68.5 Lymph % (Auto) 20.3 [place] % (Auto) 8.5 Eos % (Auto) 1.4 [...] atelectasisworse on the right side. 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 Print Language: Senegalese Disposition Disposition: Home, Self Care What to do if you have Problems For any increased pain, shortness of breath, bleeding, nausea or vomiting, chestpain, or any unexpected problems, contact your Primary Care Provider. Call [facility] ([phone]) or report to the closest Emergency Room. Call 911 if necessary. 01/20/25 4625 <Electronically signed by Laverne Elena DO> Cosigner Signature (if applicable): CC: Dr. Ronni Sen DO ~ Signed [facility] Work Phone: 1(843) 178-599504-04-2025 Evaluation note* Diagnosis Onset Date Resolution Status Admit Date Persistent atrial fibrillation chron ic December 05, 2024 11:07am (HFpEF) heart failure with preserved ejection fraction acute January 22, 2025 1:43pm Mitral insufficiency chronic January 22, 2025 1:43pm Persistent atrial fibrillation chron ic January 22, 2025 1:43pm [facility] Work Phone: 1(211) 193-468504-04-2025 Evaluation note* Diagnosis Onset Date Resolution Status Admit Date Persistent atrial fibrillation chron ic December 05, 2024 11:07am (HFpEF) heart failure with preserved ejection fraction acute January 22, 2025 1:43pm Mitral insufficiency chronic January 22, 2025 1:43pm Persistent atrial fibrillation chron ic January 22, 2025 1:43pm (HFpEF) heart failure with preserved ejection fraction acute March 18, 2025 2:40pm Mitral insufficiency chronic March 18, 2025 2:40pm Persistent atrial fibrillation chron ic March 18, 2025 2:40pm [facility] Work Phone: 1(561) 657-126602-05-2025 Evaluation note* Diagnosis Onset Date Resolution Status [...] fibrillation chron ic December 05, 2024 11:07am [facility] Work Phone: [phone]) 609-238601-26-2022 NoteHNO ID: [id number] Author: Kris Child MD Service: ? Author [...] all of its relevant components. Kris Child, [facility] Diagnosis Onset Date Resolution Status Seborrheic keratoses acute Anxiety and depression chron ic Poor appetite chronic Hyponatremia acute Anxiety and depression chron ic Chronic systolic (congestive) heart failure chronic Hypothyroidism chronic [facility] Work Phone: Evaluation note* Diagnosis Onset Date Resolution Status Vitamin B12 deficiency acute Vitamin B12 deficiency acute Mass of buttock acute Vitamin B12 deficiency acute Chronic dermatitis chronic Osteoarthritis of knee chron [facility] Work Phone: Evaluation note* Diagnosis Onset Date [...] ic Hypothyroidism chronic Persistent atrial fibrillation chronic [facility] Work Phone: Evaluation note* Diagnosis Onset Date Resolution Status Cerumen impaction acute UTI (urinary tract infection) acute Vitamin B12 deficiency acute Anxiety and depression chron ic Hypothyroidism chronic Persistent atrial fibrillation chronic Hyponatremia acute Vitamin B12 deficiency acute Anxiety and depression chron ic Hypothyroidism chronic Nonrheumatic mitral (valve) prolapse chronic Persistent atrial fibrillation chronic Poor appetite chronic [facility] Work Phone: Evaluation note* Diagnosis Onset Date Resolution Status Hyponatremia acute Vitamin B12 deficiency acute Anxiety and depression chron ic Hypothyroidism chronic Nonrheumatic mitral (valve) prolapse chronic Persistent atrial fibrillation chronic Poor appetite chronic Chronic systolic (congestive) heart failure chronic Nonrheumatic mitral (valve) insufficiency chronic Persistent atrial fibrillation chronic Pulmonary hypertension chron [facility] Work Phone: Hospital Discharge instructions Additional Instructions Please return to the ER if you feel you are worsening. Follow-up with cardiology on at 2 PM as we discussed. Take a total of 40 mg of Lasix daily with your first dose this evening. You do not need to take your daily 20 mg also.[facility] Work Phone: Reason for referral (narrative)No reason for referral information availableW[facility] Work Phone: Summary Purpose Family History No Family History Records Found Relationship Condition Age at Onset Recorded Date/T bella grandmother Malignant neoplasm of colon Unknown grandfather Myocardial infarction Unknown mother Cardiac disease Unknown Myocardial infarction Unknown Parkinson's disease Unknown Advance Directives No Advanced Directives Records Found Advance Directive Response Recorded Date/ Time Living Will Yes July 30 5:11pm Power of Neonatal Pediatric Nurse Yes July 30, 2019 5:11pm Advance Directive Response Recorded Date/ Time Living Will Yes June 01, 2022 12:14pm Power of Neonatal Pediatric Nurse Yes May 12:14pm Advance Directive Response Recorded Date/ Time Living Will Yes June 01, 2022 1:14pm Power of Neonatal Pediatric Nurse Yes May 1:14pm Advance Directive Response Recorded Date/ Time Do you have a Healthcare Power of Neonatal Pediatric Nurse? 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 Cataract extraction withIOL right eye 2. 3. 4. 5. Surgeon: Fab Resident/Fellow/Other [employer] Windows Engineer: None Estimated Blood Loss (mL): none Specimen: [...] 2024 10:58am Persistent atrial fibrillation December 11:07am Chief Complaint Admit Date 15 BP Check December 05, 2024 11:0 7am SOB January 20, 2025 11:48 am [facility] ER 20 HTN/PALPS January 22, 2025 1:4 3pm I34.0 - Nonrheumatic mitral (valve) insu fficiency March 03, 2025 8:32am Reason for Visit Admit Date Persistent atrial fibrillation December 11:07am (HFpEF) heart failure with preserved eje ction fraction January 22, 2025 1:43pm Mitral insufficiency January 22, 2025 1:43 pm Persistent atrial fibrillation January 22, 2025 1:43pm Chief Complaint Admit Date 15 BP Check December 05, 2024 11:0 7am SOB January 20, 2025 11:48 am [facility] ER 20 HTN/PALPS January 22, 2025 1:4 3pm I34.0 - Nonrheumatic mitral (valve) insu fficiency March 03, 2025 8:32am 3 M FU March 18, 2025 2:40 pm Reason for Visit Admit Date Persistent atrial fibrillation Danae 4th , 2025 11:07am (HFpEF) heart failure with preserved eje ction fraction January 22, 2025 1:43pm Mitral insufficiency January 22, 2025 1:43 pm Persistent atrial fibrillation January 22, 2025 1:43pm (HFpEF) heart failure with preserved eje ction fraction March 18, 2025 2:40pm Mitral insufficiency March 18, 2025 2:4 0pm Persistent atrial fibrillation March 2:40pm Chief Complaint Admit Date SOB January 20, 2025 11:48 am [facility] ER 01/20 HTN/PALPS January 22, 2025 1:4 3pm I34.0 - Nonrheumatic mitral (valve) insu fficiency March 03, 2025 8:32am 3 M FU March 18, 2025 2:40 pm S/P [facility] 04/13 Palps April 22 9:21am Reason for Visit Admit Date (HFpEF) heart failure with preserved eje ction fraction January 22, 2025 1:43pm Mitral insufficiency January 22, 2025 1:43 pm Persistent atrial fibrillation January 22, 2025 1:43pm (HFpEF) heart failure with preserved eje ction fraction March 18, 2025 2:40pm Mitral insufficiency March 18, 2025 2:4 0pm Persistent atrial fibrillation March 2:40pm (HFpEF) heart failure with preserved eje ction fraction April 22, 2025 9:21am Pleural effusion April 22, 2025 9: 21am Mitral insufficiency April 22, 2025 9 :21am Nonrheumatic mitral (valve) insufficienc y April 22, 2025 9:21am Persistent atrial fibrillation April 222024 9:21am Pulmonary hypertension April 22, 2025 9:21am Chief Complaint Admit Date SOB January 20, 2025 11:48 am [facility] ER 01/20 HTN/PALPS January 22, 2025 1:4 3pm I34.0 - Nonrheumatic mitral (valve) insu fficiency March 03, 2025 8:32am 3 M FU March 18, 2025 2:40 pm S/P [place] 11 Palps April 22 9:21am 6 M FU April 22, 2025 11 :13am Reason for Visit Admit Date (HFpEF) heart failure with preserved eje ction fraction January 22, 2025 1:43pm Mitral insufficiency January 22, 2025 1:43 pm Persistent atrial fibrillation January 22, 2025 1:43pm (HFpEF) heart failure with preserved eje ction fraction March 18, 2025 2:40pm Mitral insufficiency March 18, 2025 2:4 0pm Persistent atrial fibrillation March 2:40pm (HFpEF) heart failure with preserved eje ction fraction April 22, 2025 9:21am Pleural effusion April 22, 2025 9: 21am Mitral insufficiency April 22, 2025 9 :21am Persistent atrial fibrillation April 222024 9:21am Pulmonary hypertension April 22, 2025 9:21am Chronic back pain April 22, 2025 11 :13am Reason for Visit Admit Date (HFpEF) heart failure with preserved eje ction fraction January 22, 2025 1:43pm Mitral insufficiency January 22, 2025 1:43 pm Persistent atrial fibrillation January 22, 2025 1:43pm (HFpEF) heart failure with preserved eje ction fraction March 18, 2025 2:40pm Mitral insufficiency March 18, 2025 2:4 0pm Persistent atrial fibrillation March 2:40pm (HFpEF) heart failure with preserved eje ction fraction April 22, 2025 9:21am Pleural effusion April 22, 2025 9: 21am Mitral insufficiency April 22, 2025 9 :21am Persistent atrial fibrillation April 222024 9:21am Pulmonary hypertension April 22, 2025 9:21am (HFpEF) heart failure with preserved eje ction fraction April 22, 2025 11:13am Nocturnal hypoxia April 22, 2025 11 :13am Chronic back pain April 22, 2025 11 :13am Chief Complaint Admit Date I34.0 - Nonrheumatic mitral (valve) insu fficiency March 03, 2025 8:32am 3 M FU March 18, 2025 2:40 pm S/P [place] 04/13 Palps April 22 9:21am 6 M FU April 22, 2025 11 :13am 6 wk FU June 04, 2025 10 :10am Reason for Visit Admit Date (HFpEF) heart failure with preserved eje ction fraction March 18, 2025 2:40pm Mitral insufficiency March 18, 2025 2:4 0pm Persistent atrial fibrillation March 2:40pm (HFpEF) heart failure with preserved eje ction fraction April 22, 2025 9:21am Pleural effusion April 22, 2025 9: 21am Mitral insufficiency April 22, 2025 9 :21am Persistent atrial fibrillation April 222024 9:21am Pulmonary hypertension April 22, 2025 9:21am (HFpEF) heart failure with preserved eje ction fraction April 22, 2025 11:13am Nocturnal hypoxia April 22, 2025 11 :13am Chronic back pain April 22, 2025 11 :13am (HFpEF) heart failure with preserved eje ction fraction June 04, 2025 10:10am Pleural effusion June 04, 2025 10 :10am Mitral insufficiency June 04, 2025 1 0:10am Persistent atrial fibrillation June 042024 10:10am Pulmonary hypertension June 04, 2025 10:10am Additional Source Comments INFORMATION SOURCE (unrecogn ized section and content) DATE CREATED AUTHOR 06/12/2018 [facility] ([place]) DATE CREATED AUTHOR AUTHOR'S ORGANIZ ATION 06/23/2019 [facility] DATE CREATED AUTHOR AUTHOR'S ORGANIZ ATION 10/26/2021 [facility] DATE CREATED AUTHOR AUTHOR'S ORGANIZ ATION 04/30/[address] [facility] DATE CREATED AUTHOR AUTHOR'S ORGANIZ ATION 06/18/2025 [facility] Goals (unrecognized section and content) Goals may [...] DO Primary Care Provider Active Julio Kenny I&C TECHNICIAN, I&C TECHNICIAN-C Attending Provider Active Team Status: Inactive Member Role Status Dates Dr. Ronni Sen DO Primary Care Provider Active Soraya ALMANZA, PA Attending Provider, Referr ing Provider Active [...] January 20, 2025 End: January 20, 2025 Team Status: Active Member Role/Relationship Status Dates Dr. Ronni Sen DO Primary Care Provider Active Team Status: Inactive Member Role/Relationship Status Dates Dr. Ronni Sen DO Primary Care Provider Active Start: December 05, 2024 End: December 05, 2024 Dr. Ronni Sen DO Referring Provider Active Start: December 05, 2024 End: December 05, 2024 Dr. Goyo Díaz MD Attending Provider Active Start: December 05, 2024 End: December 05, 2024 Team Status: Inactive Member Role/Relationship Status Dates Dr. Ronni Sen DO Primary Care Provider Active Start: January 20, 2025 End: January 20, 2025 Dr. Laverne Elena DO Attending Provider Active Start: January 20, 2025 End: January 20, 2025 Dr. Laverne Elena DO Emergency Provider Active Start: January 20, 2025 End: January 20, 2025 Team Status: Inactive Member Role/Relationship Status Dates Dr. Ronni Sen DO Primary Care Provider Active Start: January 22, 2025 End: January 22, 2025 Dr. Ronni Sen DO Referring Provider Active Start: January 22, 2025 End: January 22, 2025 Soraya ALMANZA PA Attending Provider Active Start: January 22, 2025 End: January 22, 2025 Team Status: Inactive Member Role/Relationship Status Dates Dr. Ronni Sen DO Primary Care Provider Active Start: March 03, 2025 End: March 03, 2025 Soraya Bagley PA, PA Attending Provider Active Start: March 03, 2025 End: March 03, 2025 Soraya Bagley PA, PA Referring Provider Active Start: March 03, 2025 End: March 03, 2025 Team Status: Active Member Role/Relationship Status Dates Dr. Ronni Sen DO Primary Care Provider Active Start: March 03, 2025 Dr. Jasper Julian MD Attending Provider Active S tart: March 03, 2025 Team Status: Inactive Member Role/Relationship Status Dates Dr. Ronni Sen DO Primary Care Provider Active Start: March 18, 2025 End: March 18, 2025 Dr. Ronni Sen DO Referring Provider Active Start: March 18, 2025 End: March 18, 2025 Soraya ALMANZA PA Attending Provider Active Start: March 18, 2025 End: March 18, 2025 Team Status: Inactive Member Role/Relationship Status Dates Dr. Ronni Sen DO Primary Care Provider Active Start: January 20, 2025 End: January 20, 2025 Dr. Laverne Elena DO Attending Provider Active Start: January 20, 2025 End: January 20, 2025 Dr. Laverne Elena DO Emergency Provider Active Start: January 20, 2025 End: January 20, 2025 Team Status: Inactive Member Role/Relationship Status Dates Dr. Ronni Sen DO Primary Care Provider Active Start: January 22, 2025 End: January 22, 2025 Dr. Ronni Sen DO Referring Provider Active Start: January 22, 2025 End: January 22, 2025 Soraya ALMANZA, PA Attending Provider Active Start: January 22, 2025 End: January 22, 2025 Team Status: Inactive Member Role/Relationship Status Dates Dr. Ronni Sen DO Primary Care Provider Active Start: March 03, 2025 End: March 03, 2025 Soraya ALMANZA, PA Attending Provider Active Start: March 03, 2025 End: March 03, 2025 Soraya ALMANZA, PA Referring Provider Active Start: March 03, 2025 End: March 03, 2025 Team Status: Active Member Role/Relationship Status Dates Dr. Ronni Sen DO Primary Care Provider Active Start: March 03, 2025 Dr. Jasper Julian MD Attending Provider Active S tart: March 03, 2025 Team Status: Inactive Member Role/Relationship Status Dates Dr. Ronni Sen DO Primary Care Provider Active Start: March 18, 2025 End: March 18, 2025 Dr. Ronni Sen DO Referring Provider Active Start: March 18, 2025 End: March 18, 2025 Soraya ALMANZA, PA Attending Provider Active Start: March 18, 2025 End: March 18, 2025 Team Status: Inactive Member Role/Relationship Status Dates Dr. Ronni Sen DO Primary Care Provider Active Start: April 22, 2025 End: April 22, 2025 Dr. Ronni Sen DO Referring Provider Active Start: April 22, 2025 End: April 22, 2025 Soraya ALMANZA, PA Attending Provider Active Start: April 22, 2025 End: April 22, 2025 Team Status: Active Member Role/Relationship Status Dates Dr. Ronni Sen DO Primary Care Provider Active Start: April 22, 2025 Soraya ALMANZA PA Attending Provider Active Start: April 22, 2025 Soraya Bagley PA, PA Referring Provider Active Start: April 22, 2025 Team Status: Inactive Member Role/Relationship Status Dates Dr. Ronni Sen DO Primary Care Provider Active Start: April 22, 2025 End: April 22, 2025 Dr. Ronni Sen DO Attending Provider Active Start: April 22, 2025 End: April 22, 2025 Dr. Ronni Sen DO Referring Provider Active Start: April 22, 2025 End: April 22, 2025 Team Status: Inactive Member Role/Relationship Status Dates Dr. Ronni Sen DO Primary Care Provider Active Start: April 22, 2025 End: April 22, 2025 Soraya ALMANZA PA Attending Provider Active Start: April 22, 2025 End: April 22, 2025 Soraya ALMANZA, PA Referring Provider Active Start: April 22, 2025 End: April 22, 2025 Team Status: Active Member Role/Relationship Status Dates Dr. Ronni Sen DO Primary care physician Active Team Status: Inactive Member Role/Relationship Status Dates Dr. Ronni Sen DO Primary care physician Active Start: March 03, 2025 End: March 03, 2025 Soraya ALMANZA PA Attending physician Active Start: March 03, 2025 End: March 03, 2025 Soraya ALMANZA, PA Referring Provider Active Start: March 03, 2025 End: March 03, 2025 Team Status: Active Member Role/Relationship Status Dates Dr. Ronni Sen DO Primary care physician Active Start: March 03, 2025 Dr. Jasper Julian MD Attending physician Active Start: March 03, 2025 Team Status: Inactive Member Role/Relationship Status Dates Dr. Ronni Sen DO Primary care physician Active Start: March 18, 2025 End: March 18, 2025 Dr. Ronni Sen DO Referring Provider Active Start: March 18, 2025 End: March 18, 2025 Soraya ALMANZA PA Attending physician Active Start: March 18, 2025 End: March 18, 2025 Team Status: Inactive Member Role/Relationship Status Dates Dr. Ronni Sen DO Primary care physician Active Start: April 22, 2025 End: April 22, 2025 Dr. Ronni Sen DO Referring Provider Active Start: April 22, 2025 End: April 22, 2025 ARCHIE Hull Attending physician Active Start: April 22, 2025 End: April 22, 2025 Team Status: Inactive Member Role/Relationship Status Dates Dr. Ronni Sen DO Primary care physician Active Start: April 22, 2025 End: April 22, 2025 ARCHIE Hull Attending physician Active Start: April 22, 2025 End: April 22, 2025 ARCHIE Hull Referring Provider Active Start: April 22, 2025 End: April 22, 2025 Team Status: Inactive Member Role/Relationship Status Dates Dr. Ronni Sen DO Primary care physician Active Start: April 22, 2025 End: April 22, 2025 Dr. Ronni Sen DO Attending physician Active Start: April 22, 2025 End: April 22, 2025 Dr. Ronni Sne DO Referring Provider Active Start: April 22, 2025 End: April 22, 2025 Team Status: Inactive Member Role/Relationship Status Dates Dr. Ronni Sen DO Primary care physician Active Start: June 04, 2025 End: June 04, 2025 Dr. Ronni Sen DO Referring Provider Active Start: June 04, 2025 End: June 04, 2025 ARCHIE Hull Attending physician Active Start: June 04, 2025 End: June 04, 2025 FOR RECORDS PERTAINING TO PATIENTS WHO [...] BE BASED ON THE PRIMARY CLINICAL RECORDS. [employer] provides no warranty or guarantee of the accuracy or completeness of information in this document.
[2025-06-19 21:20] LABS: Anion Gap 12 (5-15); BUN 25 mg/dL (4-19); BUN/Creat Ratio 30.9 RATIO (10-20); Calcium,Total 9.1 mg/dL (7.6-11.0); Carbon Dioxide 24.0 mmol/L (21.0-32.0); Chloride 89 mmol/L (98-108); Estimated Creatinine Clearance 40.05 ml/min (50-250); Glucose 111 mg/dL (70-99); Potassium 4.4 mmol/L (3.3-5.1)
--- NOTE | 2025-06-19 22:20 | RAD_ITS ---
PROCEDURE: CHEST PA AND LATERAL 06/19/2025 REASON FOR EXAM: DYSPNEA, ORTHOPNEA, RALES LEFT SIDE TECHNIQUE: Procedure Code: RADCXR Modality: DX Procedure: CHEST PA AND LATERAL COMPARISON: 04/22/2025 FINDINGS: Small bibasilar pleural effusions/atelectasis. Clear upper lung zones. No pneumothorax. Cardiac silhouette appears normal in size. Aortic atherosclerotic calcification. Multilevel degenerative changes of the spine. RAD/Chest PA and Lateral IMPRESSION: Small bibasilar pleural effusions/atelectasis, similar to prior exam. Reading Location: [id number]
[2025-06-19 22:46] LABS: Pro- Brain NATRIURETIC PEPTIDE 6029 pg/mL (<=1800)
[2025-06-19 22:48] LABS: Troponin T High Sensitivity 8 ng/L (<=14)
[2025-06-19 22:50] LABS: Troponin T High Sens 2 HR 8 ng/L (<=14)
[2025-06-19 23:00] VITALS: BP 140/95; PULSE 94; RESP 18; O2SAT 96
--- NOTE | 2025-06-19 23:21 | EX.ED.DYSGE1 ---
HPI History of Present Illness Chief Complaint: General Illness Detail of Chief Complaint: Dyspnea, chest pain worse from baseline Informant: patient and family Onset/Context/Timing Onset: Weeks (Symptoms worse over the past 1 to 1.5 weeks) Context: Sudden Onset Timing: Continuous Quality: Dyspnea, dyspnea on exertion, orthopnea Location: Cardiopulmonary Current Severity: Moderate Maximum Severity: Severe Worsened by: Supine position, activity, minimal Relieved by: Nothing presently Associated Symptoms Associated Symptoms: Increased shortness of breath with minimal activity Narrative Narrative: Patient is AN 85-year-old woman. She has history of heart failure with preserved ejection fraction, nonrheumatic valvular heart disease, vitamin B 12 deficiency, hypothyroidism who recently saw Soraya Taveras and had her Lasix increased from 20 mg a day to 40 mg twice a day. Patient sleeps in an reclined position at 45 degrees. Patient states she cannot walk to the kitchen which is 20 feet from her room. She states she gets significantly short of breath and feels as if she is going to collapse. She also has had some intermittent chest discomfort with activity. She denies fever, chills night sweats. She denies headache, visual, ocular auditory symptoms. She denies upper respiratory tract infectious symptoms. She does have history of GERD. Denies epigastric pain. Denies black or maroon-colored stool. Prior similar symptoms: Yes Recent Illness/Hospitalization: Yes [facility] Medical History Pleural effusion (HFpEF) heart failure with preserved ejection fraction Vitamin B12 deficiency Chronic back pain Hip fracture Persistent atrial fibrillation Nonrheumatic mitral (valve) insufficiency Chronic systolic (congestive) heart failure Pleural effusion CAP (community acquired pneumonia) Sepsis Hypotension Nonrheumatic mitral (valve) prolapse Hypothyroidism History of basal cell carcinoma Anxiety and depression A-fib History of cataract Heart murmur GERD (gastroesophageal reflux disease) IBS (irritable bowel syndrome) History of hepatitis Hormone replacement therapy Home Medications ?Medication ?Instructions ?Recorded ?Last Taken ?Type psyllium husk 0.4 gram capsule 0.4 g PO DAILY 01/17/22 Unknown History (Daily Fiber) cholecalciferol (vitamin D3) 25 25 mcg PO DAILY 03/13/22 Unknown History mcg (1,000 unit) tablet food supplemt, lactose-reduced 120 ml PO DAILY PRN supp 04/30/23 Unknown History 0.08 gram-1.5 kcal/mL oral liquid ascorbic acid (vitamin C) 500 mg 250 mg PO DAILY 10/29/23 Unknown History tablet mecobalamin (vitamin B12) 500 mcg 500 mcg PO DAILY 12/11/23 Unknown History chewable tablet quetiapine 100 mg tablet 50 mg (1/2 x 100 mg) PO QHS #60 10/08/24 Unknown Rx tabs polyethylene glycol 3350 17 17 g PO DAILY PRN constipation 01/20/25 Unknown History gram/dose oral powder (ClearLax) zinc acetate 50 mg (zinc) capsule 50 mg PO DAILY 01/20/25 Unknown History omeprazole 20 mg capsule,delayed 20 mg PO DAILY PRN acid reflux 01/22/25 Unknown History release magnesium chloride 64 mg 64 mg PO QDAY 03/18/25 Unknown History (magnesium chloride) tablet,delayed release vitamin E (dl, acetate) 180 mg 180 mg PO QDAY 03/18/25 Unknown History (400 unit) capsule fluoxetine 20 mg capsule (Prozac) 20 mg PO QDAY #90 caps 04/22/25 Unknown Rx oxygen #1 ea 04/22/25 Unknown Rx potassium chloride 10 mEq 10 meq PO QDAY 04/22/25 Unknown History capsule,extended release hydrocodone-acetaminophen 5-325mg 1 tab PO QHS PRN pain 30 days #30 06/16/25 Unknown Rx 5mg-325mg tabs metoprolol tartrate 25 mg tablet 25 mg PO BID bp #180 tabs 06/16/25 Unknown Rx fluoxetine 10 mg capsule 20 mg PO DAILY 06/19/25 Unknown History furosemide 40 mg tablet 40 mg PO DAILY 06/19/25 Unknown History Allergy/AdvReac Type Severity Reaction Status Date / Time milk AdvReac Mild gas Verified 06/19/25 18:01 wheat AdvReac Mild Abd Verified 06/19/25 18:01 cramps/diarrhea Family History Grandmother Colon cancer Grandfather Myocardial infarction Mother Heart disease Myocardial infarction Parkinsons Surgical History History of cholecystectomy History of hysterectomy Social History Smoking Status: Never smoker alcohol intake: never substance use type: other details: marijuana tea caffeine: Yes Type: tea what type of physical activity do you participate in: none ROS ROS ED Constitutional Constitutional ED: Denies chills, fever(s), subjective or sweats Eyes Eyes: Denies blurry vision or change in vision ENT ENT ED: Denies ear pain, rhinorrhea or sore throat Cardiovascular Cardiovascular: Reports chest pain and orthopnea; Denies palpitations, paroxysmal nocturnal dyspnea or racing heartbeat Respiratory/Chest Respiratory/Chest: Reports cough, dyspnea, dyspnea on exertion and orthopnea; Denies paroxysmal nocturnal dyspnea Gastrointestinal Gastrointestinal: Denies abdominal pain, constipation, diarrhea or melena Genitourinary Genitourinary ED: Denies dysuria or hematuria Musculoskeletal Musculoskeletal: Denies arthralgias, back pain or myalgias Integumentary Denies abscess or rash Neurologic Neurologic: Denies headache(s) or paresthesias Psychiatric Psychiatric: Denies anxiety or depression Endocrine Endocrinology: Denies cold intolerance or heat intolerance Hematologic/Lymphatic Hematologic/Lymphatic: Reports systems reviewed and no addt'l complaints, except as documented EXAM Physical Exam Const Vital Signs: 06/19/25 17:59 06/19/25 19:58 06/19/25 20:16 Temperature 98 F Temperature Source Oral Pulse Rate 82 95 Respiratory Rate 18 18 Respiratory Effort Short of Breath Respiratory Pattern Tachypnea Blood Pressure 126/77 H 138/98 H Blood Pressure Mean 93 111 Pulse Ox 97 97 Oxygen Delivery Method Room Air 06/19/25 20:28 06/19/25 20:28 06/19/25 21:00 Temperature Temperature Source Pulse Rate 94 Respiratory Rate 20 H 18 Respiratory Effort Respiratory Pattern Blood Pressure 146/94 H Blood Pressure Mean 111 Pulse Ox 96 96 94 Oxygen Delivery Method Room Air Room Air Room Air 06/19/25 23:00 Temperature Temperature Source Pulse Rate 94 Respiratory Rate 18 Respiratory Effort Respiratory Pattern Blood Pressure 140/95 H Blood Pressure Mean 110 Pulse Ox 96 Oxygen Delivery Method Room Air Positive well nourished, well developed and cachectic Constitutional Narrative: Patient is breathing quicker than 18 times a minute. Her breathing slightly labored. General Appearance ED: well developed and cachectic; Negative for cyanotic, diaphoretic or pallor Nutritional Appearance: cachectic HEENT Reports dry mucous membranes HEENT Narrative: Patient has temporal wasting bilaterally. Ears normal. Nares patent. Posterior pharynx is normal. Mouth ED: Yes dry mucous membranes Mouth: dry mucous membranes Eyes PERRL and EOMs intact bilaterally General Eye ED: Negative for pale conjunctiva or scleral icterus Neck no lymphadenopathy, supple and no JVD Neck Narrative: No JVD at 90 degrees. At about 75 degrees she does have some mild JVD to the angle of the mandible Chest Wall inspection of chest normal and palpation of chest normal Resp No normal respiratory effort and No clear to auscultation bilaterally Auscultation: rales right base and left lower Cardio regular rate; Negative for no murmurs Rate: tachycardic Rhythm: abnormal rhythm irregularly irregular GI normal to inspection, nondistended, normoactive bowel sounds, non-tender, non-distended and no masses; Negative for hepatosplenomegaly Back/Spine no CVA tenderness Extremity Extremity Narrative: Minimal edema of the lower extremities 1 to 2 mm depressed Neuro oriented x3 and CN's II-XII intact bilaterally Sensorium / Orientation: alert Psych mental status grossly normal Skin no rashes or lesions noted, no wounds and skin turgor normal General Skin Exam: Negative for jaundice or pallor MDM MDM MDM Narrative Medical decision making narrative: Differential diagnosis is exacerbation CHF. Need to rule out cardiac ischemia will obtain troponin since she has had chest discomfort. Clinically she has CHF. Doubt pneumonia, pneumothorax or pulmonary embolus. If workup is unremarkable then we will consider pulmonary embolus. History & Record Review Additional record(s) reviewed:: Prior outpatient record (Reviewed recent cardiology records) and Prior labs Lab Data Attestation: I reviewed the patient's lab results. Lab results narrative: CBC is unremarkable. Basic metabolic panel is remarkable elevated BUN to creatinine ratio approximately 30-1. 1st and 2nd troponin are normal. BNP is 6029. This is elevated. Labs: Laboratory Results - last 24 hr 06/18/25 06/19/25 22:20 19:50 WBC 6.9 RBC 4.33 Hgb 13.4 Hct 40.3 MCV 93.1 MCH 30.9 MCHC 33.3 RDW Std Deviation 48.0 H RDW Coeff of Karis 14.3 Plt Count 250 MPV 10.8 Immature Gran % (Auto) 0.400 Neut % (Auto) 73.0 H Lymph % (Auto) 16.5 L Ritchie % (Auto) 8.7 Eos % (Auto) 0.7 Baso % (Auto) 0.7 Absolute Neuts (auto) 5.0 Absolute Lymphs (auto) 1.14 Nucleated RBC % 0 Sodium 125 L Potassium 4.4 Chloride 89 L Carbon Dioxide 24.0 Anion Gap 12 BUN 25 H Creatinine 0.82 Estim Creat Clear Calc 40.05 L Est GFR (MDRD) Non-Af 71 BUN/Creatinine Ratio 30.9 H Glucose 111 H Calcium 9.1 Troponin T High Sens 8 D Troponin T Hi Sens 2 Hr 8 NT pro BNP II 6029 H Radiography Chest X-Ray - ED: 2 View and Read by ED Physician (Difficulty interpreted since the PA is overpenetrated. There is a small effusion noted. There is evidence of cephalization.) EKG Initial EKG: Attestation: I personally reviewed and interpreted this EKG as follows: Interpretation: Atrial Fibrillation (Rate is 101. QRS duration 86 ms. QT duration 338 ms. Lancing is normal.) Treatment and Re-Evaluation :: Will have legal administrative secretary contact hospitalist for admission for exacerbation of CHF. She treated with 40 mg of Lasix and 1 inch of Nitropaste for preload reduction since her pressure is elevated Discharge Plan Dx/Rx/DC Orders Clinical Impression: Acute exacerbation of CHF (congestive heart failure), Pleural effusion, Diastolic dysfunction, Nonrheumatic mitral (valve) insufficiency, Atrial fibrillation, chronic Disposition Disposition: Acute Care Hospital [facility]
[2025-06-19 23:56] VITALS: BP 126/78; PULSE 94
[2025-06-19] MEDS: Nitroglycerin Oint 1 INCH PACKET TD (23:56)
[2025-06-20] VITALS (9 sets, daily range): BP systolic 100–130; BP diastolic 69–85; PULSE 72–96; RESP 14–18; TEMP 35.9–36.7; O2SAT 93–97; BMI 16.7
--- NOTE | 2025-06-20 00:17 | HP.PCM.HOS_ITS ---
[facility] - General General Date of Admission: 06/20/25 Date of Service: 06/20/25 HPI Narrative DENIZ SIMPSON, is a 85 F with a PMH as outlined who presents via the ED on 06/20/2025 with a complaint of shortness of breath. She does have a known history of heart failure with preserved EF and afib. She says she has not been able to walk to her office without feeling short of breath. She denied any cough, but admitted to some chest pain and palpitations as well as nausea. She denied any dizziness, vomiting or any other symptoms. Review of systems is otherwise negative. She has been sleeping in recliner at 45 degrees to help with her symptoms. Review of systems was otherwise negative. 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 However she informed them that she preferred to take it 20 mg twice a day as it was more convenient for her. She does have a history of A-fib and says she was placed on p.o. Eliquis but was taken off of it due to concerns about mechanical fall and said that the Eliquis also did not let her feel very good so she had wanted to stop taking it. Vitals in the ED were BP of 130/74, ME of 89, RR of 18 and temp of 97.8F. She was saturating at 94% on room air. CBC showed hemoglobin of 13.4 with WBC of 6.9 and platelets of 250. Chemistry showed sodium of 125 with potassium of 4.4 and bicarb of 24. Creatinine 0.82. Initial troponin was negative. proBNP was 6029. Chest x-ray showed small bibasilar pleural effusion and atelectasis. She has been admitted to be managed for acute exacerbation of heart failure. [facility] Medical History Pleural effusion (HFpEF) heart failure with preserved ejection fraction Vitamin B12 deficiency Chronic back pain Hip fracture Persistent atrial fibrillation Nonrheumatic mitral (valve) insufficiency Chronic systolic (congestive) heart failure Pleural effusion CAP (community acquired pneumonia) Sepsis Hypotension Nonrheumatic mitral (valve) prolapse Hypothyroidism History of basal cell carcinoma Anxiety and depression A-fib History of cataract Heart murmur GERD (gastroesophageal reflux disease) IBS (irritable bowel syndrome) History of hepatitis Hormone replacement therapy Home Medications ?Medication ?Instructions ?Recorded ?Last Taken ?Type psyllium husk 0.4 gram capsule 0.4 g PO DAILY 01/17/22 Unknown History (Daily Fiber) cholecalciferol (vitamin D3) 25 25 mcg PO DAILY Unknown History mcg (1,000 unit) tablet food supplemt, lactose-reduced 120 ml PO DAILY PRN sup p 04/30/23 Unknown History 0.08 gram-1.5 kcal/mL oral liquid ascorbic acid (vitamin C) 500 mg 250 mg PO DAILY 10/29 Unknown History tablet mecobalamin (vitamin B12) 500 mcg 500 mcg PO DAILY 05/27 Unknown History chewable tablet quetiapine 100 mg tablet 50 mg (1/2 x 100 mg) PO QHS #60 10/08/24 Unknown Rx tabs polyethylene glycol 3350 17 17 g PO DAILY PRN constipa tion 01/20/25 Unknown History gram/dose oral powder (ClearLax) zinc acetate 50 mg (zinc) capsule 50 mg PO DAILY 01/20 Unknown History omeprazole 20 mg capsule,delayed 20 mg PO DAILY PRN ac id reflux 01/22/25 Unknown History release magnesium chloride 64 mg 64 mg PO QDAY 03/18/25 Unkno wn History (magnesium chloride) tablet,delayed release vitamin E (dl, acetate) 180 mg 180 mg PO QDAY 03/18/25 Unknown History (400 unit) capsule fluoxetine 20 mg capsule (Prozac) 20 mg PO QDAY #90 ca ps 04/22/25 Unknown Rx oxygen #1 ea 04/22/25 Unknown Rx potassium chloride 10 mEq 10 meq PO QDAY 04/22/25 Unkn own History capsule,extended release hydrocodone-acetaminophen 5-325mg 1 tab PO QHS PRN nayeli n 30 days #30 06/16/25 Unknown Rx 5mg-325mg tabs metoprolol tartrate 25 mg tablet 25 mg PO BID bp #180 tabs 06/16/25 Unknown Rx fluoxetine 10 mg capsule 20 mg PO DAILY 06/19/25 Unkn own History furosemide 40 mg tablet 40 mg PO DAILY 06/19/25 Unkn own History Allergy/AdvReac Type Severity Reaction Status Date / Time milk AdvReac Mild gas Verified 06/19/25 18:01 wheat AdvReac Mild Abd Verified 06/19/25 18:01 cramps/diarrhea Family History Grandmother Colon cancer Grandfather Myocardial infarction Mother Heart disease Myocardial infarction Parkinsons Surgical History History of cholecystectomy History of hysterectomy Social History Smoking Status: Never smoker alcohol intake: never substance use type: other details: marijuana tea caffeine: Yes Type: tea what type of physical activity do you participate in: none ROS Constitutional Constitutional: Reports fatigue, malaise and weakness; Denies anorexia, chills or fever(s) Eyes Eyes: Denies change in vision ENT HEENT: Denies dysphagia, headache(s) or sore throat Cardiovascular Cardiovascular: Reports dyspnea on exertion, edema, orthopnea and paroxysmal nocturnal dyspnea; Denies chest pain, lightheadedness, palpitations, rapid heart rate or syncope Respiratory/Chest Respiratory/Chest: Reports cough, dyspnea, shortness of breath at rest and shortness of breath with exertion; Denies productive cough or wheezing Gastrointestinal Gastrointestinal: Denies abdominal pain, constipation, diarrhea, nausea or vomiting Genitourinary Genitourinary: Denies burning urination or dysuria Musculoskeletal Musculoskeletal: Denies joint pain Neurologic Neurologic: Denies confusion, dizziness, focal weakness, headache(s), numbness, paresthesias, seizures or syncope Psychiatric Psychiatric: Denies anxiety or depression Vital Signs Vital Signs Vital Signs: 06/19/25 17:59 06/19/25 19:58 06/19/25 20:16 Temperature 98 F Temperature Source Oral Pulse Rate 82 95 Respiratory Rate 18 18 Respiratory Effort Short of Breath Respiratory Pattern Tachypnea Blood Pressure 126/77 H 138/98 H Blood Pressure Mean 93 111 Pulse Ox 97 97 Oxygen Delivery Method Room Air 06/19/25 20:28 06/19/25 20:28 06/19/25 21:00 Temperature Temperature Source Pulse Rate 94 Respiratory Rate 20 H 18 Respiratory Effort Respiratory Pattern Blood Pressure 146/94 H Blood Pressure Mean 111 Pulse Ox 96 96 94 Oxygen Delivery Method Room Air Room Air Room Air 06/19/25 23:00 06/19/25 23:56 06/20/25 00:00 Temperature 97.8 F Temperature Source Pulse Rate 94 94 89 Respiratory Rate 18 18 Respiratory Effort Respiratory Pattern Blood Pressure 140/95 H 126/78 H 130/74 H Blood Pressure Mean 110 92 Pulse Ox 96 94 Oxygen Delivery Method Room Air Weight Weight: 107 lb 9.369 oz Body Mass Index (BMI) 17.3 Physical Exam Const alert, oriented x3 and no apparent distress General Appearance: cooperative HEENT normocephalic, head/scalp atraumatic and hearing grossly normal bilaterally Mouth: oral and palatal mucosa normal Eyes conjunctivae normal Neck supple and no JVD Resp Resp Narrative: modeately dimnished breath sounds bibasally, no wheezes or crackles. On room air Cardio regular rate, S1 normal heart sound, S2 normal heart sound and no murmurs Cardio Narrative: afib, rate controlled GI normal to inspection, nondistended, normoactive bowel sounds, soft to palpation and non-tender Extremity normal to inspection, full ROM and no clubbing, cyanosis or edema Neuro oriented x3, moves all extremities and no focal motor deficits Sensorium / Orientation: awake and alert Motor Exam: strength 5/5 throughout Psych affect normal Results Lab / Micro Data 06/19/25 19:50 06/19/25 19:50 Labs: Laboratory Results - last 24 hr 06/18/25 22:20: Troponin T Hi Sens 2 Hr 8 06/19/25 19:50: WBC 6.9, RBC 4.33, Hgb 13.4, Hct 40.3, MCV 93.1, MCH 30.9, MCHC 33.3, RDW Std Deviation 48.0 H, RDW Coeff of Karis 14.3, Plt Count 250, MPV 10.8, Immature Gran % (Auto) 0.400, Neut % (Auto) 73.0 H, Lymph % (Auto) 16.5 L, Elk % (Auto) 8.7, Eos % (Auto) 0.7, Baso % (Auto) 0.7, Absolute Neuts (auto) 5.0, Absolute Lymphs (auto) 1.14, Nucleated RBC % 0, Sodium 125 L, Potassium 4.4, C hloride 89 L, Carbon Dioxide 24.0, Anion Gap 12, BUN 25 H, Creatinine 0.82, E stim Creat Clear Calc 40.05 L, Est GFR (MDRD) Non-Af 71, BUN/Creatinine Ratio 30.9 H, Glucose 111 H, Calcium 9.1, Troponin T High Sens 8 D, NT pro BNP II 6029 H Imaging Radiology Impression Chest X-Ray 06/19/25 22:20 IMPRESSION: Small bibasilar pleural effusions/atelectasis, similar to prior exam. Reading Location: [facility] Assessment & Plan Assessment/Plan (1) Acute exacerbation of CHF (congestive heart failure): (2) Atrial fibrillation, chronic: PLAN: Plan #Acute exacerbation of heart failure with preserved EF * Admit to PCU. Was admitted with a complaint of shortness of breath. Has assisted orthopnea. Has been sleeping in a recliner at 45 degrees angle to help her sleep better. * proBNP elevated at 6029. Chest x-ray showed small bibasilar pleural effusion and atelectasis similar to prior exam. * Her Lasix dose was recently changed from 40 mg daily to 20 mg twice daily by her trench pipe layer office. * Status diuresing with IV Lasix 40 mg twice daily. Monitor intake and output. Fluid restriction to 1500 cc daily. * 2D echo from 03/03/2025 showed normal left ventricular size and systolic function with EF of 60% and 2+ mitral valve insufficiency with severely enlarged left atrium and anterior leaflet mitral valve prolapse. * #Atrial fibrillation: * This is chronic. On metoprolol. * Says she used to be on Eliquis 2.5 mg twice daily but this was discontinued by her PCP due to concerns about fall and also patient seen bedside Eliquis just did not make her feel good. * remains in afib. * #GERD: On PPI #Hyponatremia: * Sodium is 125. Was previously normal with at 135. * Fluid overload may be playing a role. Should improve with diuresis. Will monitor closely. * If it does not improve we will do further workup with serum osmolality and urine osmolality as well as urine sodium #DVT prophylaxis: lovenox Code status: full code * Patient and daughters counseled extensively about different types of CODE STATUS including full code, DNR CCA and DNR CCA. * Patient elects to be full code. * Total [id number] time 16 minutes. Charges/Coding Visit Charges Inpatient E&M: 16104 Init Hosp L3 Procedures Hospitalists Procedures: 35503 Advncd Care Plan 30 Min
[2025-06-20 00:44] LABS: Troponin T High Sens 4 HR 10 ng/L (<=14)
--- OUTSIDE RECORDS SUMMARY | 2025-06-20 01:38 | XMS RPT_ITS | CCD ---
Author Organization [facility] Care Team Providers Care Director Of Sustainability Programs Name Role Phone FISH, LUCY Unavailable Unavailable [...] Provider Dr. Jasper Julian Attending Provider Roof WELDING MACHINE ASSEMBLER, WELDING MACHINE ASSEMBLER-C Julio Sanabria Attending Provider Letty GONZALEZ, Dr. Ronni Johnson Primary Care Provider Letty GONZALEZ, Dr. Ronni Johnson Attending Provider [phone] Letty GONZALEZ, Dr. Ronni Johnson Referring Provider [phone] Dr. Goyo Díaz MD Attending Provider Dr. Laverne Elena DO Emergency Provider [phone] Letty GONZALEZ, Dr. Ronni Johnson Primary Care Provider Letty GONZALEZ, Dr. Ronni Johnson Referring Provider [phone] Dr. Laverne Elena DO Attending Provider Soraya Dickson Attending Provider [phone] Soraya Dickson Referring Provider [phone] Dr. Jasper Julian MD Attending Provider [phone] Letty GONZALEZ, Dr. Ronni Johnson Primary Care Provider [phone] Letty GONZALEZ, Dr. Ronni Johnson Referring Provider [...] cow milk allergenic extract Drug Allergy 5 [facility] (7 sources) Wheat preparation Drug Allergy 5 Abd cramps/diarrhea [facility] (1 source) Milk Drug allergy (disorder) [address] [place] [address] Repository (1 source) Wheat preparation Drug Allergy 5 [facility] Repository Medications Current Medications Medication [...] PO DAILY February 24, 2019 12:00am nystatin 119251 unt/ml topical cream (19 sources) Polyene Antifungal [...] 12:32pm for use in the genital area [place]-3 Fatty Acids (3 sources) Start: 10-25-2022 take 1000 mg by mouth once daily [place]-3 Fatty Acids Active 1000 MG PO DAILY [...] Start: 04-22-2025 take 1 capsule by mo [facility] once daily Potassium Chloride 10 mEq capsule, [...] Vitamin B12 Start: 07-25-2019 End: 09-12-2021 Vitamin S70-Ikwjj Acid 1 EACH tablet Discontinued 1 {tbl} PO DAILY July 25, 2019 1:00am September 12, 2021 3:21pm supp Start: 07-25-2019 End: 09-12-2021 take 1 tablet by mouth once daily Vitamin F83-Gucai Acid Discontinued 1 TABLET PO DAILY July 25, 2019 1:00am September 12, 2021 3:21pm Start: 02-24-2019 End: 05-20-2019 Vitamin A94-Ptlrk Acid 1 EAC H tablet Discontinued 1 {tbl} PO DAILY February 24, 2019 12:00am May 20, 2019 2:36pm supplement Start: 02-24-2019 End: 05-20-2019 take 1 tablet by mouth once daily Vitamin B47-Bsxen Acid Discontinued 1 TABLET PO DAILY February [...] 25 mg oral tablet (20 sources) beta-Adrenergic Setve Start: 04-30-2023 End: 04-22-2025 take 1 tablet [...] hr after or 2-3 hrs before dose [place]-3 Fatty Acids 1,000 mg capsule (7 sources) Start: 10-25-2022 End: 09-11-2023 take 1 capsule by mouth once daily [place]-3 Fatty Acids 1,000 mg capsule Discontinued 1000 mg PO DAILY October 25, 2022 1:00am September 11, 2023 12:37pm [place]-3 Fatty Acids-Fish Oil (5 sources) Start: 02-24-2019 End: 02-27-2019 take 1000 mg by mouth once daily [place]-3 Fatty Acids-Fish Oil Discontinued 1000 MG PO DAILY February 24, 2019 3:21pm February 27, 2019 3:03pm Start: 02-24-2019 End: 02-27-2019 take 1000 mg by mouth once daily [place]-3 Fatty Acids-Fish Oil Discontinued 1000 MG PO DAILY February 24, 2019 12:00am February 27, 2019 3:03pm Start: 02-24-2019 End: 02-27-2019 take 1000 mg by mouth once daily [place]-3 Fatty Acids-Fish Oil Discontinued 1000 MG PO DAILY February 23, 2019 11:00pm February 27, 2019 2:03pm [place]-3 Fatty Acids-Fish Oil 1 EACH capsule (7 sources) Start: 02-24-2019 End: 02-27-2019 take 1 capsule by mouth once daily [place]-3 Fatty Acids-Fish Oil 1 EACH capsule Discontinued 1000 mg PO DAILY February 24, 2019 12:00am February 27, 2019 3:03pm supplement Start: 02-24-2019 End: 02-27-2019 take 1 capsule by mouth once daily [place]-3 Fatty Acids-Fish Oil 1 EACH capsule Discontinued [...] neck of left femur polyethylene glycol 3350 86355 mg powder for oral solution (20 sources) [...] 2018 12:00am March 21, 2018 4:35pm thyroid (mcc) 30 mg oral tablet (20 sources) Start: [...] Vis zelda 06-16-2025 Internal Medicine Office Visit [facility] Internal Medicine [address] [place] [address] [place] [address] OFFICE VISIT Date of Service: 06/16/25 MR#: [id number] Acct: [id number] Name: MARIBEL SIMPSON Rep #: [id number] : 1940 Provider: Dr. Ronni ca, DO Age/Sex: 85/F Location: [facility] Status: Signed Intake Vital Signs 06/04/25 07:51 [...] AND OFF Chief Complaint: Shortness of breath. Marquetry Worker Required: No Accompanied by: Daughter Is patient [...] nursing staff prior to appointment being made. [facility] Medical History (Updated 06/16/25 @ 14:26 by [...] in: none (more content not included)... Normal [facility] Cardiology Visit Reporton Cardiology Visit Report [facility] [address] [place] [address] OFFICE VISIT Date of Service: 06/04/25 MR#: [id number] Acct: [id number] Name: MARIBEL SIMPSON Rep #: [id number] : 1940 Provider: ARCHIE Shrestha Age/Sex: 85/F Location: [facility] Status: Signed HPI HPI History of Present [...] hs Intake Visit Reasons: 6 wk FU Marquetry Worker Required: No Accompanied by: Daughter Is patient [...] stomach hurti (more content not included)... 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 [address] [id number] 04/10/2025 Patient: MARIBEL SIMPSON Sex: Female : [...] 20:55 Margaret George R.N. 1 of 2 Electrical Engineer - MARIBEL SIMPSON, : 1940, , 2 of 2 Normal [facility] ED NURSES CLINICAL NOTEon ED NURSES CLINICAL NOTE Nurse Narrative - MARIBEL SIMPSON, : 1940, , Nurse Clinical Narrative [facility] [address] [place] [address] [id number] 04/10/2025 12:48:00 Patient: MARIBEL SIMPSON Sex: Female : 1940 Age: 85y Disposition: Admit to [facility] Disposition Decision Time: 18:44 04/10/2025 Departure Time: [...] harming or killing yourself?. -- 13:10 04/10/25 LEIDYT Gayla Hyatt R.N. 2 of 5 Nurse [...] bag#1 5 (more content not included)... Normal [facility] ED ORDER SHEET (CPOE ONLY)on 04-29-2025 ED ORDER SHEET (CPOE ONLY) Order Sheet - MARIBEL SIMPSON, : 1940, , Order Sheet [address] [place] [address] [id number] 04/10/2025 Patient: MARIBEL SIMPSON Sex: Female : [...] (04/11/2025 01:23 EDT)] 3 of 3 Normal [facility] ED PHYSICIAN CLINICAL REPORT on 04-29-2025 ED PHYSICIAN CLINICAL REPORT Narrative - MARIBEL SIMPSON, : 1940, , Physician Clinical [facility] [address] [place] [address] [id number] 04/10/2025 12:48:00 Patient: MARIBEL SIMPSON Sex: Female : 1940 Age: 85y Disposition: Admit to [facility] Disposition Decision Time: 18:44 04/10/2025 Departure Time: [...] have been reviewed. PHYSICAL EXAM Vital Signs: Lindsay Coma Scale: 15- eyes open- spontaneous (4); [...] Final Be (more content not included)... Normal [facility] ED SUPER BILLon 04-29-2025 ED SUPER BILL MARIBEL Mcgovern, : 1940, , [facility] [address] [place] [address] [id number] 04/10/2025 Patient: MARIBEL SIMPSON Sex: Female : 1940 Age: 85y Facility Professional Category Item Description Code Code Quantity Fee Total Drugs Normal Saline 637367 1 $0.00 $0.00 1000cc (749069) Nurse/E/M EMERGENCY 538045 1 $0.00 $0.00 DEPT VISIT HIGH SEVERITYFUNCJ (20098-87) Nurse/IV/IM/Infusions Hydration 059920 1 $0.00 $0.00 additional hour (33401) Nurse/IV/IM/Infusions IVP additional 722882 1 $0.00 $0.00 push (82390) Nurse/IV/IM/Infusions IVP initial (12191) 450478 1 $0.00 $0.00 Grand $0.00 Total Providers [...] Hypo-osmolality and hyponatremia 2 of 2 Normal [facility] ED VISIT SUMMARYon ED VISIT SUMMARY Visit Overview - MARIBEL SANCHEZ, : 1940, , Visit Overview [place] [address] [place] [address] [id number] 04/10/2025 Patient: MARIBEL SIMPSON Sex: Female : [...] NAUSEA. NO DEHYDRATION 4 of 4 Normal [facility] ED VITALS FLOW SHEETon 04-29 ED VITALS FLOW SHEET Vitals - STANLEY SIMPSON, : 1940, , Vital Sign Flow Sheet [facility] [address] [place] [address] [id number] 04/10/2025 Patient: MARIBEL SIMPSON Sex: Female : [...] 97.9 F 0 1 of 1 Normal [facility] Cardiology Visit Reporton Cardiology Visit Report [facility] [address] [place] [address] OFFICE VISIT Date of Service: 04/22/25 MR#: [id number] Acct: [id number] Name: MARIBEL SIMPSON Rep #: [id number] : 1940 Provider: ARCHIE Shrestha Age/Sex: 85/F Location: [facility] Status: Signed HPI HPI History of Present [...] effusion. She resides at an [facility]. She questions needing O2 at night. [...] Intake Visit Reasons: S/P [place] 04/13 [place] Marquetry Worker Required: No Accompanied by: Daughter Is patient [...] IBS (irritable (more content not included)... Normal [facility] Chest PA and Lateralon 04-22 Chest PA and Lateral [facility] [address] [place] [address] Chest PA and Lateral MR#: [id number] Acct: [id number] Name: MARIBEL SIMPSON Rep #: [id number] : 1940 F 85 From: Iain Bajwa MD PCP: Dr. Ronni Sen, DO Status: REG CLI Study: Chest PA and Lateral Date of Exam: 04/22/25 Exam# [id number] Ordering Dr: Soraya Bagley PA PROCEDURE: CHEST [...] size. Likely pulmonary arterial hypertension. Reading Location: [id number] CC: Dr. Ronni Sen DO; ARCHIE Thomas Unload Associate: Signed Normal [facility] Internal Medicine Office Vis iton 04-22-2025 Internal Medicine Office Visit [facility] [address] [place] [address] [place] [address] OFFICE VISIT Date of Service: 04/22/25 MR#: [id number] Acct: [id number] Name: MARIBEL SIMPSON Rep #: [id number] : 1940 Provider: Dr. Ronni ca DO Age/Sex: 85/F Location: [facility] Status: Signed Intake Vital Signs 10/08/24 11:18 [...] has fallen in the assisted care facility) [facility] Medical History Pleural effusion (HFpEF) heart failure [...] the fact that she was admitted to [facility] for several days with a diagnosis of congestive heart failure. She recently has seen cardiology and some tests were ordered. Her complaint now is that she is very short of breath at night and it is difficult for her to sleep, wondering if nocturnal O2 could be ordered. ROS Const Constitutional: No body ache, chills, excessive s (more content not included)... Normal [facility] BMP with eGFRon 04-13-2025 AGE 85 years Normal [facility] Comment on above: Performed By: #### 2 44549 #### [facility],[address] [place] [address] 67969 Anion gap [Moles/Vol] 4 mmol/L Low 10 - 20 [facility] Comment on above: Performed By: #### 2 98383 #### [facility],[address] [place] [address] 61265 BMP with eGFR Normal [facility] Comment on above: Result Comment: BASI C METABOLIC PANEL Performed By: #### 2 86329 #### [facility],[address] [place] [address] 99617 Calcium [Mass/Vol] 8.8 mg/dL Normal 8.5 - 10.1 [facility] Comment on above: Performed By: #### 2 96989 #### [facility],[address] [place] [address] 35909 Chloride [Moles/Vol] 97 mmol/L Low 98 - 107 [facility] Comment on above: Performed By: #### 2 83035 #### [facility],[address] [place] [address] 50150 CO2 [Moles/Vol] 39.1 mmol/L High 21.0 - 32.0 [facility] Comment on above: Performed By: #### 2 14111 #### [facility],[address] [place] [address] 89480 Creatinine [Mass/Vol] 0.70 mg/dL Normal 0.55 - 1.02 [facility] Comment on above: Performed By: #### 2 65439 #### [facility],[address] [place] [address] 72792 GFR/1.73 sq M.predicted among non-blacks MDRD (S/P/Bld) [Vol rate/Area] mL/min/{1.73_m2} Normal 60 - 999 [facility] Comment on above: Performed By: #### 2 95098 #### [facility],[address] [place] [address] Result Comment: ACCO RDING TO THE NATIONAL KIDNEY DISEASE EDUCATION PROGRAM(NKDE), A NORMAL eGFR IS A VALUE GREATER THAN OR EQUAL TO 60 ML/MIN/1.73 SQ METERS. CHRONIC KIDNEY DISEASE: <60mL/MIN/1.73 SQ METERS KIDNEY FAILURE: <15mL/MIN/1.73 SQ METERS THIS TEST SHOULD ONLY BE USED FOR PATIENTS 18 YEARS OF AGE AND OLDER. Glucose [Mass/Vol] 86 mg/dL Normal 74 - 106 [facility] Comment on above: Performed By: #### 2 01413 #### [place] [address] Potassium [Moles/Vol] 3.7 mmol/L Normal 3.5 - 5.1 [facility] Comment on above: Performed By: #### 2 95336 #### [facility],[address] [place] [address] Sodium [Moles/Vol] 136 mmol/L Normal 136 - 145 [facility] Comment on above: Performed By: #### 2 72602 #### [facility],[address] [place], [place] [address] Urea nitrogen [Mass/Vol] 13 mg/dL Normal 7 - 18 [facility] Comment on above: Performed By: #### 2 63888 #### [facility],[address] [place], [place] [address] CBC + DIFFon 04-13-2025 Baso # 0.03 x10EE3/UL Normal 0.00 - 0.10 [facility] Comment on above: Performed By: #### 2 42805 #### [facility],[address] [place] [address] 72367 Basophils/100 WBC (Bld) 0.4 % Normal 0.0 - 2.0 [facility] Comment on above: Performed By: #### 2 29171 #### [facility],[address] [place] [address] 38854 CBC + DIFF Normal [facility] Comment on above: Result Comment: CBC- COMPLETE BLOOD COUNT Performed By: #### 2 68030 #### [facility],[address] [place] [address] 83849 EO # 0.36 x10EE3/UL Normal 0.00 - 0.50 [facility] Comment on above: Performed By: #### 2 78749 #### [facility],[address] [place] [address] 57354 Eosinophils/100 WBC (Bld) 5.9 % Normal 0.0 - 7.0 [facility] Comment on above: Performed By: #### 2 80594 #### [facility],[address] [place] [address] 57045 Erythrocyte distribution width (RBC) [Ratio] 14.2 % Normal 12.0 - 15.6 [facility] Comment on above: Performed By: #### 2 34838 #### [facility],[address] [place] [address] 83468 Hematocrit (Bld) [Volume fraction] 41.5 % Normal 34.0 - 46.0 [facility] Comment on above: Performed By: #### 2 64429 #### [facility],[address] [place] [address] 13427 Hemoglobin (Bld) [Mass/Vol] 14.0 g/dL Normal 12.0 - 16.0 [facility] Comment on above: Performed By: #### 2 64081 #### [facility],[address] [place] [address] 89434 Lymph # 1.50 x10EE3/UL Normal 0.80 - 2.80 [facility] Comment on above: Performed By: #### 2 16454 #### [facility],[address] [place] [address] 50088 Lymphocytes/100 WBC (Bld) 24.8 % Normal 20.0 - 45.0 [facility] Comment on above: Performed By: #### 2 05697 #### [facility],[address] [place] [address] 58129 MANUAL DIFF N/A Normal [facility] Comment on above: Performed By: #### 2 87626 #### [facility],[address] [place] [address] MCH (RBC) [Entitic mass] 31 pg Normal 27 - 33 [facility] Comment on above: Performed By: #### 2 34857 #### [facility],[address] [place] [address] MCHC 34 X10 3 Normal 32 - 36 [facility] Comment on above: Performed By: #### 2 67544 #### [facility],[address] [place] [address] MCV (RBC) [Entitic vol] 93 fL Normal 80 - 99 [facility] Comment on above: Performed By: #### 2 11168 #### [facility],[address] [place] [address] Daniels # 0.71 x10EE3/UL Normal 0.20 - 1.00 [facility] Comment on above: Performed By: #### 2 37816 #### [facility],[address] [place] [address] MONOS % 11.7 % High 0.0 - 10.0 [facility] Comment on above: Performed By: #### 2 86027 #### [facility],[address] [place] [address] 57476 Morphology Rio (Bld) [Interp] N/A Normal [facility] Comment on above: Performed By: #### 2 14065 #### [facility],[address] [place] [address] Neut # 3.47 x10EE3/UL Normal 1.50 - 7.10 [facility] Comment on above: Performed By: #### 2 84554 #### [facility],[address] [place] [address] 06055 Neutrophils/100 WBC (Bld) 57.2 % Normal 46.0 - 76.0 [facility] Comment on above: Performed By: #### 2 83674 #### [facility],[address] [place] [address] 45762 PLATELET 262 x10EE3/UL Normal 150 - 450 [facility] Comment on above: Performed By: #### 2 59349 #### [facility],[address] [place] [address] 79689 Platelet mean volume (Bld) [Entitic vol] 7.8 fL Normal 6.6 - 10.5 [facility] Comment on above: Result Comment: AUTO MATED DIFFERENTIAL Performed By: #### 2 17893 #### [facility],[address] [place] [address] 64612 RBC 4.47 x 10EE6/UL Normal 4.10 - 5.30 [facility] Comment on above: Performed By: #### 2 79412 #### [facility],[address] [place] [address] 37466 WBC 6.1 x 10EE3/UL Normal 4.5 - 10.8 [facility] Comment on above: Performed By: #### 2 56331 #### [facility],[address] [place] [address] 20102 NT-proBNPon 04-13-2025 Natriuretic peptide B (Bld) [Mass/Vol] 1564 pg/mL High 0 - 450 [facility] Comment on above: Performed By: #### 2 10990 #### [facility],[address] [place] [address] 20679 BMP with eGFRon 04-12-2025 AGE 85 years Normal [facility] Comment on above: Performed By: #### 2 42653 #### [facility],[address] [place] [address] 34940 Anion gap [Moles/Vol] 6 mmol/L Low 10 - 20 [facility] Comment on above: Performed By: #### 2 68045 #### [facility],[address] [place] [address] 66892 BMP with eGFR Normal [facility] Comment on above: Result Comment: BASI C METABOLIC PANEL Performed By: #### 2 65885 #### [facility],[address] [place] [address] 34484 Calcium [Mass/Vol] 8.3 mg/dL Low 8.5 - 10.1 [facility] Comment on above: Performed By: #### 2 00727 #### [facility],[address] [place] [address] 59001 Chloride [Moles/Vol] 96 mmol/L Low 98 - 107 [facility] Comment on above: Performed By: #### 2 16045 #### [facility],[address] [place] [address] 42322 CO2 [Moles/Vol] 35.1 mmol/L High 21.0 - 32.0 [facility] Comment on above: Performed By: #### 2 99306 #### [facility],[address] [place] [address] 83939 Creatinine [Mass/Vol] 0.77 mg/dL Normal 0.55 - 1.02 [facility] Comment on above: Performed By: #### 2 81738 #### [facility],[address] [place] [address] 85650 GFR/1.73 sq M.predicted among non-blacks MDRD (S/P/Bld) [Vol rate/Area] mL/min/{1.73_m2} Normal 60 - 999 [facility] Comment on above: Performed By: #### 2 88460 #### [facility],[address] [place] [address] 33836 Result Comment: ACCO RDING TO THE NATIONAL KIDNEY DISEASE EDUCATION PROGRAM(NKDE), A NORMAL eGFR IS A VALUE GREATER THAN OR EQUAL TO 60 ML/MIN/1.73 SQ METERS. CHRONIC KIDNEY DISEASE: <60mL/MIN/1.73 SQ METERS KIDNEY FAILURE: <15mL/MIN/1.73 SQ METERS THIS TEST SHOULD ONLY BE USED FOR PATIENTS 18 YEARS OF AGE AND OLDER. Glucose [Mass/Vol] 81 mg/dL Normal 74 - 106 [facility] Comment on above: Performed By: #### 2 64849 #### [facility],[address] [place] [address] 96984 Potassium [Moles/Vol] 3.2 mmol/L Low 3.5 - 5.1 [facility] Comment on above: Performed By: #### 2 57420 #### [facility],[address] [place] [address] 72091 Sodium [Moles/Vol] 134 mmol/L Low 136 - 145 [facility] Comment on above: Performed By: #### 2 94270 #### [facility],[address] [place] [address] 54166 Urea nitrogen [Mass/Vol] 19 mg/dL High 7 - 18 [facility] Comment on above: Performed By: #### 2 25353 #### [facility],[address] [place] [address] 61541 CBC + DIFFon 04-12-2025 Baso # 0.02 x10EE3/UL Normal 0.00 - 0.10 [facility] Comment on above: Performed By: #### 2 92150 #### [facility],[address] [place] [address] 52494 Basophils/100 WBC (Bld) 0.2 % Normal 0.0 - 2.0 [facility] Comment on above: Performed By: #### 2 00662 #### [facility],[address] [place] [address] 24443 CBC + DIFF Normal [facility] Comment on above: Result Comment: CBC- COMPLETE BLOOD COUNT Performed By: #### 2 99569 #### [facility],[address] [place] [address] 66025 EO # 0.29 x10EE3/UL Normal 0.00 - 0.50 [facility] Comment on above: Performed By: #### 2 00870 #### [facility],[address] [place] [address] 13706 Eosinophils/100 WBC (Bld) 4.5 % Normal 0.0 - 7.0 [facility] Comment on above: Performed By: #### 2 95468 #### [facility],[address] [place] [address] Erythrocyte distribution width (RBC) [Ratio] 14.3 % Normal 12.0 - 15.6 [facility] Comment on above: Performed By: #### 2 87989 #### [facility],[address] [place] [address] Hematocrit (Bld) [Volume fraction] 36.8 % Normal 34.0 - 46.0 [facility] Comment on above: Performed By: #### 2 44416 #### [facility],[address] [place] [address] Hemoglobin (Bld) [Mass/Vol] 12.8 g/dL Normal 12.0 - 16.0 [facility] Comment on above: Performed By: #### 2 60174 #### [facility],[address] [place] [address] 99673 Lymph # 2.14 x10EE3/UL Normal 0.80 - 2.80 [facility] Comment on above: Performed By: #### 2 92790 #### [facility],[address] [place] [address] 58042 Lymphocytes/100 WBC (Bld) 32.7 % Normal 20.0 - 45.0 [facility] Comment on above: Performed By: #### 2 95040 #### [facility],[address] [place], [place] [address] MANUAL DIFF N/A Normal [facility] Comment on above: Performed By: #### 2 39992 #### [facility],[address] [place] [address] 13323 MCH (RBC) [Entitic mass] 33 pg Normal 27 - 33 [facility] Comment on above: Performed By: #### 2 31883 #### [facility],[address] [place] [address] MCHC 35 X10 3 Normal 32 - 36 [facility] Comment on above: Performed By: #### 2 86246 #### [facility],[address] [place] [address] 73350 MCV (RBC) [Entitic vol] 94 fL Normal 80 - 99 [facility] Comment on above: Performed By: #### 2 47777 #### [facility],[address] [place] [address] Daniels # 0.61 x10EE3/UL Normal 0.20 - 1.00 [facility] Comment on above: Performed By: #### 2 09598 #### [facility],[address] [place] [address] 30654 MONOS % 9.3 % Normal 0.0 - 10.0 [facility] Comment on above: Performed By: #### 2 71316 #### Martin [facility] [place] [address] 82008 Morphology Rio (Bld) [Interp] N/A Normal [facility] Comment on above: Performed By: #### 2 43459 #### [facility],[address] [place] [address] 08262 Neut # 3.50 x10EE3/UL Normal 1.50 - 7.10 [facility] Comment on above: Performed By: #### 2 54544 #### [facility],[address] [place], [place] [address] Neutrophils/100 WBC (Bld) 53.4 % Normal 46.0 - 76.0 [facility] Comment on above: Performed By: #### 2 50303 #### [facility],[address] [place] [address] 20350 PLATELET 230 x10EE3/UL Normal 150 - 450 [facility] Comment on above: Performed By: #### 2 25782 #### [facility],[address] [place] [address] 19644 Platelet mean volume (Bld) [Entitic vol] 8.4 fL Normal 6.6 - 10.5 [facility] Comment on above: Result Comment: AUTO MATED DIFFERENTIAL Performed By: #### 2 65348 #### [facility],[address] [place] [address] 87593 RBC 3.93 x 10EE6/UL Low 4.10 - 5.30 [facility] Comment on above: Performed By: #### 2 88950 #### [facility],[address] [place], [place] [address] WBC 6.6 x 10EE3/UL Normal 4.5 - 10.8 [facility] Comment on above: Performed By: #### 2 39733 #### [facility],[address] [place] [address] NT-proBNPon 04-12-2025 Natriuretic peptide B (Bld) [Mass/Vol] 3412 pg/mL High 0 - 450 [facility] Comment on above: Performed By: #### 2 18307 #### [facility],[address] [place] [address] 77569 BMP with eGFRon 04-11-2025 AGE 85 years Normal [facility] Comment on above: Performed By: #### 2 25357 #### [facility],[address] [place] [address] 58166 Anion gap [Moles/Vol] 7 mmol/L Low 10 - 20 [facility] Comment on above: Performed By: #### 2 08211 #### [facility],[address] [place], [place] [id number] BMP with eGFR Normal [facility] Comment on above: Result Comment: BASI C METABOLIC PANEL Performed By: #### 2 55565 #### [facility],[address] [place], [place] [address] Calcium [Mass/Vol] 8.4 mg/dL Low 8.5 - 10.1 [facility] Comment on above: Performed By: #### 2 57013 #### [facility],[address] [place] [address] Chloride [Moles/Vol] 96 mmol/L Low 98 - 107 [facility] Comment on above: Performed By: #### 2 14840 #### [facility],[address] [place], [place] [address] CO2 [Moles/Vol] 32.0 mmol/L Normal 21.0 - 32.0 [facility] Comment on above: Performed By: #### 2 99658 #### [facility],[address] [place], [place] [address] Creatinine [Mass/Vol] 0.98 mg/dL Normal 0.55 - 1.02 [facility] Comment on above: Performed By: #### 2 14273 #### [facility],[address] [place], [place] [address] eGFR 54 ML/MINUTE Low 60 - 999 [facility] Comment on above: Performed By: #### 2 02414 #### [facility],[address] [place] [address] 65170 GFR/1.73 sq M.predicted among non-blacks MDRD (S/P/Bld) [Vol rate/Area] mL/min/{1.73_m2} Normal 60 - 999 [facility] Comment on above: Result Comment: ACCO RDING TO THE NATIONAL KIDNEY DISEASE EDUCATION PROGRAM(NKDE), A NORMAL eGFR IS A VALUE GREATER THAN OR EQUAL TO 60 ML/MIN/1.73 SQ METERS. CHRONIC KIDNEY DISEASE: <60mL/MIN/1.73 SQ METERS KIDNEY FAILURE: <15mL/MIN/1.73 SQ METERS THIS TEST SHOULD ONLY BE USED FOR PATIENTS 18 YEARS OF AGE AND OLDER. Performed By: #### 2 75471 #### [facility],[address] [place] [address] 16094 Glucose [Mass/Vol] 87 mg/dL Normal 74 - 106 [facility] Comment on above: Performed By: #### 2 14757 #### [facility],[address] [place] [address] 16859 Potassium [Moles/Vol] 3.7 mmol/L Normal 3.5 - 5.1 [facility] Comment on above: Performed By: #### 2 12571 #### [place] [id number] Sodium [Moles/Vol] 131 mmol/L Low 136 - 145 [facility] Comment on above: Performed By: #### 2 59709 #### [facility],[address] [place], [place] [address] Urea nitrogen [Mass/Vol] 16 mg/dL Normal 7 - 18 [facility] Comment on above: Performed By: #### 2 83963 #### [address] [address] CBC + DIFFon 04-11-2025 Baso # 0.02 x10EE3/UL Normal 0.00 - 0.10 [facility] Comment on above: Performed By: #### 2 47989 #### [address] [address] Basophils/100 WBC (Bld) 0.2 % Normal 0.0 - 2.0 [facility] Comment on above: Performed By: #### 2 23830 #### [facility],[address] [place] [address] 83295 CBC + DIFF Normal [facility] Comment on above: Result Comment: CBC- COMPLETE BLOOD COUNT Performed By: #### 2 74397 #### [address],[place] [address] EO # 0.19 x10EE3/UL Normal 0.00 - 0.50 [facility] Comment on above: Performed By: #### 2 57208 #### [facility],[address] [place] [address] 72155 Eosinophils/100 WBC (Bld) 2.3 % Normal 0.0 - 7.0 [facility] Comment on above: Performed By: #### 2 03589 #### [facility],[address] [place] [address] Erythrocyte distribution width (RBC) [Ratio] 14.3 % Normal 12.0 - 15.6 [facility] Comment on above: Performed By: #### 2 89251 #### [facility],[address] [place] [address] Hematocrit (Bld) [Volume fraction] 41.6 % Normal 34.0 - 46.0 [facility] Comment on above: Performed By: #### 2 74782 #### [facility],[address] [place], [place] [address] Hemoglobin (Bld) [Mass/Vol] 14.0 g/dL Normal 12.0 - 16.0 [facility] Comment on above: Performed By: #### 2 90304 #### [facility],[address] [place] [address] 24297 Lymph # 1.96 x10EE3/UL Normal 0.80 - 2.80 [facility] Comment on above: Performed By: #### 2 71793 #### [facility],[address] [place] [address] 95261 Lymphocytes/100 WBC (Bld) 23.1 % Normal 20.0 - 45.0 [facility] Comment on above: Performed By: #### 2 21509 #### [facility],[address] [place] [address] 60878 MANUAL DIFF N/A Normal [facility] Comment on above: Performed By: #### 2 42492 #### [facility],[address] [place] [address] MCH (RBC) [Entitic mass] 31 pg Normal 27 - 33 [facility] Comment on above: Performed By: #### 2 31696 #### [facility],[address] [place] [address] MCHC 34 X10 3 Normal 32 - 36 [facility] Comment on above: Performed By: #### 2 72645 #### [facility],[address] [place] [address] MCV (RBC) [Entitic vol] 93 fL Normal 80 - 99 [facility] Comment on above: Performed By: #### 2 81360 #### [facility],[address] [place] [address] Daniels # 0.91 x10EE3/UL Normal 0.20 - 1.00 [facility] Comment on above: Performed By: #### 2 29915 #### [facility],[address] [place], [place] [address] MONOS % 10.7 % High 0.0 - 10.0 [facility] Comment on above: Performed By: #### 2 56485 #### [facility],[address] [place], [place] [address] Morphology Rio (Bld) [Interp] N/A Normal [facility] Comment on above: Performed By: #### 2 18461 #### [facility],[address] [place] [address] Neut # 5.39 x10EE3/UL Normal 1.50 - 7.10 [facility] Comment on above: Performed By: #### 2 44197 #### [facility],[address] [place] [address] Neutrophils/100 WBC (Bld) 63.6 % Normal 46.0 - 76.0 [facility] Comment on above: Performed By: #### 2 63881 #### [facility],[address] [place], [place] [address] PLATELET 274 x10EE3/UL Normal 150 - 450 [facility] Comment on above: Performed By: #### 2 48882 #### [facility],[address] [place] [address] Platelet mean volume (Bld) [Entitic vol] 8.0 fL Normal 6.6 - 10.5 [facility] Comment on above: Result Comment: AUTO MATED DIFFERENTIAL Performed By: #### 2 86118 #### [facility],[address] [place] [address] RBC 4.49 x 10EE6/UL Normal 4.10 - 5.30 [facility] Comment on above: Performed By: #### 2 09959 #### [place] [address] WBC 8.5 x 10EE3/UL Normal 4.5 - 10.8 [facility] Comment on above: Performed By: #### 2 45112 #### [facility],[address] [place] [address] TSHon 04-11-2025 TSH Qn 7.07 m[IU]/L High 0.35 - 3.74 [facility] Comment on above: Performed By: #### 2 28059 #### [facility],[address] [place] [address] CBC + DIFFon 04-10-2025 Baso # 0.02 x10EE3/UL Normal 0.00 - 0.10 [facility] Comment on above: Performed By: #### 2 19532 #### [facility],[address] [place] [address] Basophils/100 WBC (Bld) 0.4 % Normal 0.0 - 2.0 [facility] Comment on above: Performed By: #### 2 99951 #### [facility],[address] [place] [address] CBC + DIFF Normal [facility] Comment on above: Result Comment: CBC- COMPLETE BLOOD COUNT Performed By: #### 2 89563 #### [facility],[address] [place] [address] EO # 0.03 x10EE3/UL Normal 0.00 - 0.50 [facility] Comment on above: Performed By: #### 2 02736 #### [facility],[address] [place] [address] Eosinophils/100 WBC (Bld) 0.4 % Normal 0.0 - 7.0 [facility] Comment on above: Performed By: #### 2 22270 #### [facility],[address] [place] [address] Erythrocyte distribution width (RBC) [Ratio] 14.4 % Normal 12.0 - 15.6 [facility] Comment on above: Performed By: #### 2 99636 #### [facility],[address] [place] [address] Hematocrit (Bld) [Volume fraction] 41.0 % Normal 34.0 - 46.0 [facility] Comment on above: Performed By: #### 2 31101 #### [facility],[address] [place] [address] Hemoglobin (Bld) [Mass/Vol] 14.0 g/dL Normal 12.0 - 16.0 [facility] Comment on above: Performed By: #### 2 20387 #### [facility],[address] [place] [address] Lymph # 1.12 x10EE3/UL Normal 0.80 - 2.80 [facility] Comment on above: Performed By: #### 2 88406 #### [facility],[address] [place], [place] [address] Lymphocytes/100 WBC (Bld) 16.2 % Low 20.0 - 45.0 [facility] Comment on above: Performed By: #### 2 37318 #### [facility],[address] [place] [address] MANUAL DIFF N/A Normal [facility] Comment on above: Performed By: #### 2 58942 #### [facility],[address] [place] [address] MCH (RBC) [Entitic mass] 31 pg Normal 27 - 33 [facility] Comment on above: Performed By: #### 2 21761 #### [facility],[address] [place] [address] MCHC 34 X10 3 Normal 32 - 36 [facility] Comment on above: Performed By: #### 2 46496 #### [facility],[address] [place] [address] MCV (RBC) [Entitic vol] 92 fL Normal 80 - 99 [facility] Comment on above: Performed By: #### 2 53298 #### [facility],[address] [place] [address] Daniels # 0.35 x10EE3/UL Normal 0.20 - 1.00 [facility] Comment on above: Performed By: #### 2 53418 #### [facility],[address] [place] [address] MONOS % 5.1 % Normal 0.0 - 10.0 [facility] Comment on above: Performed By: #### 2 39770 #### [facility],[address] [place] [address] Morphology Rio (Bld) [Interp] N/A Normal [facility] Comment on above: Performed By: #### 2 83926 #### [facility],[address] [place] [address] Neut # 5.38 x10EE3/UL Normal 1.50 - 7.10 [facility] Comment on above: Performed By: #### 2 46193 #### [facility],[address] [place] [address] 80124 Neutrophils/100 WBC (Bld) 77.9 % High 46.0 - 76.0 [facility] Comment on above: Performed By: #### 2 81651 #### [facility],[address] [place] [address] 55890 PLATELET 278 x10EE3/UL Normal 150 - 450 [facility] Comment on above: Performed By: #### 2 95972 #### [facility],[address] [place] [address] 02998 Platelet mean volume (Bld) [Entitic vol] 8.5 fL Normal 6.6 - 10.5 [facility] Comment on above: Result Comment: AUTO MATED DIFFERENTIAL Performed By: #### 2 97014 #### [facility],[address] [place] [address] 13801 RBC 4.45 x 10EE6/UL Normal 4.10 - 5.30 [facility] Comment on above: Performed By: #### 2 29210 #### [facility],[address] [place] [address] 13799 WBC 6.9 x 10EE3/UL Normal 4.5 - 10.8 [facility] Comment on above: Performed By: #### 2 48155 #### [facility],[address] [place] [address] 17099 CHEST 1 VIEWon 04-10-2025 CHEST 1 VIEW [place] [address] Patient: MARIBEL SIMPSON Phone#: : 1940 Age: 85 Gender: F Pt. Type: ER Account: [id number] Location: [facility] Ordering: DR. ARYA MOSER Exam Date: 04/10/2025/15:16 Family Phys: Charge Code: 655498 Physician: [place] Order #: [id number] Dose#: PROCEDURE: X-RAY CHEST 1 VIEW COMPARISON: [...] Diaz MD on 04/10/2025 at 15:47 Normal [facility] CMP with eGFRon 04-10-2025 AGE 85 years Normal [facility] Comment on above: Performed By: #### 2 44028 #### [address] [address] Albumin [Mass/Vol] 3.4 g/dL Normal 3.4 - 5.0 [facility] Comment on above: Performed By: #### 2 64808 #### [facility],[address] [place] [address] 92647 Albumin/Globulin [Mass ratio] 0.9 {ratio} Normal 0.9 - 1.6 [facility] Comment on above: Performed By: #### 2 95542 #### [facility],[address] [place] [address] 72859 ALK PHOS 78 U/L Normal 46 - 116 [facility] Comment on above: Performed By: #### 2 33868 #### [facility],[address] [place] [address] 32038 ALT [Catalytic activity/Vol] 35 U/L Normal 16 - 63 [facility] Comment on above: Performed By: #### 2 80811 #### [facility],[address] [place] [address] 35720 Anion gap [Moles/Vol] 13 mmol/L Normal 10 - 20 [facility] Comment on above: Performed By: #### 2 34413 #### [facility],[address] [place] [address] 90975 AST [Catalytic activity/Vol] 41 U/L High 13 - 39 [facility] Comment on above: Performed By: #### 2 95217 #### [facility],[address] [place] [address] 42642 B/C RATIO 23 ratio Normal 0 - 30 [facility] Comment on above: Performed By: #### 2 33115 #### [facility],[address] [place] [address] 09115 Bilirubin [Mass/Vol] 1.1 mg/dL High 0.2 - 1.0 [facility] Comment on above: Performed By: #### 2 98029 #### [facility],[address] [place] [address] 91246 Calcium [Mass/Vol] 9.2 mg/dL Normal 8.5 - 10.1 [facility] Comment on above: Performed By: #### 2 02297 #### [facility],[address] [place] [address] 33013 Chloride [Moles/Vol] 94 mmol/L Low 98 - 107 [facility] Comment on above: Performed By: #### 2 74867 #### [facility],[address] [place] [address] 29240 CMP with eGFR Normal [facility] Comment on above: Result Comment: COMP REHENSIVE METABOLIC PANEL Performed By: #### 2 80315 #### [facility],[address] [place] [address] 74282 CO2 [Moles/Vol] 26.6 mmol/L Normal 21.0 - 32.0 [facility] Comment on above: Performed By: #### 2 70711 #### [facility],[address] [place] [address] 55555 Creatinine [Mass/Vol] 0.90 mg/dL Normal 0.55 - 1.02 [facility] Comment on above: Performed By: #### 2 02046 #### [facility],[address] [place] [address] 71684 eGFR 60 ML/MINUTE Normal 60 - 999 [facility] Comment on above: Performed By: #### 2 10892 #### [facility],[address] [place] [address] 59497 GFR/1.73 sq M.predicted among non-blacks MDRD (S/P/Bld) [Vol rate/Area] mL/min/{1.73_m2} Normal 60 - 999 [facility] Comment on above: Result Comment: ACCO RDING TO THE NATIONAL KIDNEY DISEASE EDUCATION PROGRAM(NKDE), A NORMAL eGFR IS A VALUE GREATER THAN OR EQUAL TO 60 ML/MIN/1.73 SQ METERS. CHRONIC KIDNEY DISEASE: <60mL/MIN/1.73 SQ METERS KIDNEY FAILURE: <15mL/MIN/1.73 SQ METERS THIS TEST SHOULD ONLY BE USED FOR PATIENTS 18 YEARS OF AGE AND OLDER. Performed By: #### 2 30661 #### [facility],[address] [place] [address] 59408 Globulin (S) [Mass/Vol] 3.8 g/dL Normal 1.5 - 3.8 [facility] Comment on above: Performed By: #### 2 41953 #### [facility],[address] [place] [address] 22881 Glucose [Mass/Vol] 156 mg/dL High 74 - 106 [facility] Comment on above: Performed By: #### 2 34583 #### [facility],[address] [place] [address] 57610 Potassium [Moles/Vol] 4.5 mmol/L Normal 3.5 - 5.1 [facility] Comment on above: Performed By: #### 2 04509 #### [facility],[address] [place] [address] 42006 Protein [Mass/Vol] 7.2 g/dL Normal 6.4 - 8.2 [facility] Comment on above: Performed By: #### 2 86533 #### [facility],[address] [place] [address] 89638 Sodium [Moles/Vol] 129 mmol/L Low 136 - 145 [facility] Comment on above: Performed By: #### 2 99580 #### [facility],[address] [place] [address] 89065 Urea nitrogen [Mass/Vol] 21 mg/dL High 7 - 18 [facility] Comment on above: Performed By: #### 2 38870 #### [facility],[address] [place] [address] 53677 CORONAVIRUS (SARS) ANTIGEN T ESTon 04-10-2025 EXTERNAL QC DONE? YES Normal [facility] Comment on above: Performed By: #### 2 85424 #### [facility],[address] [place] [address] INTERNAL CONTROL PASS Normal [facility] Comment on above: Performed By: #### 2 76039 #### [facility],[address] [place] [address] 82465 SARS ANTIGEN Negative Normal NORMAL: NEGATIVE [facility] Comment on above: Performed By: #### 2 67626 #### [facility],[address] [place] [address] 61286 SEND TO ? YES Normal [facility] Comment on above: Result Comment: SARS -CoV-2 THIS TEST IS BEING USED UNDER THE FDA EUA PROCEDURE. THIS ASSAY HAS BEEN VALIDATED AT [facility] FOR USE WITH NASAL AND [...] PUBLIC HEALTH AUTHORITIES. Performed By: #### 2 86715 #### [place] [address] CT ABDOMEN/PELVIS [facility] 04-10 CT ABDOMEN/PELVIS [place] [address] Patient: MARIBEL SIMPSON Phone#: : 1940 Age: 85 Gender: F Pt. Type: ER Account: [id number] [facility]: [facility] Exam Date: 04/10/2025/15:02 Family Phys: Charge Code: 385277 Physician: [place] Order #: [id number] Dose#: 4.5 PROCEDURE: CT ABDOMEN/PELVIS WITHOUT CONTRAST [...] 85 Gender: F Pt. Type: ER Account: [id number] Location: 2 [facility] Exam Date: 04/10/2025/15:02 Family Phys: Charge Code: [id number] Physician: [place] Order #: [id number] Dose#: 4.5 CONCLUSION: 1. Cardiomegaly. 2. Moderate right pleural effusion. Small left pleural effusion. 3. Small amount of free fluid is present in the pelvis. Dictated by: Pippa Diaz MD on 04/10/2025 at 16:13 Approved by: Pippa Diaz MD on 04/10/2025 at 16:22 Normal [facility] INFLUENZA VIRUS RAPID A/Bon 04-10-2025 INFLUENZA [...] TO THREE DAYS. RESULT CRITICAL? NO Normal [facility] Comment on above: Performed By: #### 2 25516 #### [address] [address] LACTATEon 04-10-2025 Lactate [Moles/Vol] 1.4 mmol/L Normal 0.4 - 2.0 [facility] Comment on above: Performed By: #### 2 75761 #### [address] [address] LIPASEon 04-10-2025 Lipase [Catalytic activity/Vol] 14.0 U/L Low 15.0 - 78.0 [facility] Comment on above: Result Comment: *PLE ASE NOTE THAT RANGES FOR LIPASE HAVE CHANGED OF 08/31/23 DUE TO AN ASSAY UPDATE BY THE LICENSED PRACTICAL NURSE INSTRUCTOR.THE NEW ASSAY RANGE IS 6-250 U/L, WITH A REFERENCE RANGE OF 16-77 U/L. Performed By: #### 2 85575 #### [address] [address] NT-proBNPon 04-10-2025 Natriuretic peptide B (Bld) [Mass/Vol] 7523 pg/mL High 0 - 450 [facility] Comment on above: Performed By: #### 2 14321 #### [address] [address] TROPONINon 04-10-2025 HS TROPONIN 17.1 pg/mL Normal 0.0 - 51.4 [facility] Comment on above: Performed By: #### 2 85520 #### [address] [address] URINALYSISon 04-10-2025 Amorphous NONE Normal [facility] Comment on above: Performed By: #### 2 41278 #### [facility],[address] [place] [address] 23387 Bacteria TRACE Normal [facility] Comment on above: Performed By: #### 2 18713 #### [facility],[address] [place] [address] 36494 Bilirubin Ql (U) Negative Normal NORMAL: NEGATIVE [facility] Comment on above: Performed By: #### 2 37059 #### [facility],[address] [place] [address] 90150 Casts NONE Normal [facility] Comment on above: Performed By: #### 2 09070 #### [facility],[address] [place] [address] 93887 Clarity (U) clear Normal NORMAL: CLEAR [facility] Comment on above: Performed By: #### 2 91619 #### [facility],[address] [place] [address] 42259 Color (U) yellow Normal NORMAL: YELLOW [facility] Comment on above: Performed By: #### 2 62589 #### [facility],[address] [place] [address] 94197 Crystals LM Nom (Urine sed) NONE Normal [facility] Comment on above: Performed By: #### 2 40978 #### [facility],[address] [place] [address] 76392 Epi Cells NONE Normal [facility] Comment on above: Performed By: #### 2 07154 #### [facility],[address] [place] [address] 87958 Glucose Ql (U) NORM Normal NORMAL: NORMAL [facility] Comment on above: Performed By: #### 2 82193 #### [facility],[address] [place] [address] 15529 Hemoglobin Ql (U) Negative Normal NORMAL: NEGATIVE [facility] Comment on above: Performed By: #### 2 38771 #### [facility],[address] [place] [address] 37944 Ketone 5 Abnormal NORMAL: NEGATIVE [facility] Comment on above: Performed By: #### 2 02996 #### [facility],[address] [place] [address] 82240 Leukocytes 100 Abnormal NORMAL: NEGATIVE [facility] Comment on above: Performed By: #### 2 14938 #### [facility],[address] [place] [address] 67291 Mucous NONE Normal [facility] Comment on above: Performed By: #### 2 43825 #### [facility],[address] [place] [address] 36921 Nitrite Ql (U) Negative Normal NORMAL: NEGATIVE [facility] Comment on above: Performed By: #### 2 47277 #### [facility],[address] [place] [address] 19680 pH (U) 6 [pH] Normal NORMAL: 5.0-8.0 [facility] Comment on above: Performed By: #### 2 18315 #### [facility],[address] [place] [address] 31866 Protein Ql (U) 30 Abnormal NORMAL: NEGATIVE [facility] Comment on above: Performed By: #### 2 05721 #### [facility],[address] [place], [place] [address] Rbc NONE Normal 0-3/hpf [facility] Comment on above: Performed By: #### 2 [id number] #### [facility],[address] [place] [address] Sp Luquillo 1.015 Normal NORMAL: 1.010-1.03 0 [facility] Comment on above: Performed By: #### 2 55089 #### [facility],[address] [place] [address] Specimen Type R Normal [facility] Comment on above: Performed By: #### 2 92779 #### [facility],[address] [place] [address] Urinalysis dipstick W Reflex Microscopic panel (U) SEE BELOW Normal [facility] Comment on above: Result Comment: MICR OSCOPIC Performed By: #### 2 93048 #### [facility],[address] [place] [address] Urobilinog NORM Normal NORMAL: NORMAL [facility] Comment on above: Performed By: #### 2 53806 #### [facility],[address] [place] [address] Wbc 1-5 Normal 0-5/hpf [facility] Comment on above: Performed By: #### 2 13021 #### [facility],[address] [place] [address] Yeast NONE Normal [facility] Comment on above: Performed By: #### 2 05389 #### [facility],[address] [place], [place] [address] Cardiology Visit Reporton Cardiology Visit Report [facility] [address] [place] [address] OFFICE VISIT Date of Service: 03/18/25 MR#: [id number] Acct: [id number] Name: MARIBEL SIMPSON Rep #: [id number] : 1940 Provider: ARCHIE Shrestha Age/Sex: 85/F Location: [facility] Status: Signed HPI HPI History of Present [...] stable. She resides at an [facility]. Intake Vital Signs 02/05/25 11:18 01/22/25 06:55 03/18/25 14:48 Height 5 ft 7 in 5 ft 6.93 in 5 ft 6.93 in Weight: 106 lb BMI 16.6 BP 93/59 L Blood Pressure Location Rt brachial Position Sitting Respiration 16 Pulse 94 Pulse Source Monitor Intake Visit Reasons: 3 M FU Marquetry Worker Required: No Accompanied by: Daughter Allergies milk [...] left chest (more content not included)... Normal [facility] Echo Completeon 03-03-2025 Echo Complete [facility] Services [address] [place] [address] Echo Complete 03/03/25 1111 MR#: [id number] Acct: [id number] Name: MARIBEL SIMPSON Rep #: [id number] : 1940 84 From: Jasper Julian MD Attending Dr: ARCHIE Thomas Status: REG CLI Ordering Dr: Soraya Bagley PA Date: 09/27 Location: [facility] Sex: F C Admitted: Reason For [...] Date Dictated: 03/03/25 1111 Date Transcribed: 03/03/251621 Unload Associate: Signed Normal [facility] Echocardiogram study reportO rdered By: Jasper Julian on 03-03-2025 Study report [facility] Cardiovascular Services [address] [place] [address] Echo Complete 03/03/25 1111 MR#: [id number] Acct: [id number] Name: MARIBEL SIMPSON Rep #:[id number] : 1940 84 From: Jasper Salazar Attending Dr: ARCHIE Thomas Status: REG CLI Ordering Dr: Soraya Bagley PA Date: 03/03/25 Location: [facility] Sex: F C Admitted: Reason For [...] Date Dictated: 03/03/25 1111 Date Transcribed: 03/03/251621 Unload Associate: Signed [facility] Work Phone: Cardiology Visit Reporton Cardiology Visit Report [facility] [address] [facility] [place], [place] [address] OFFICE VISIT Date of Service: 01/22/25 MR#: [id number] Acct: [id number] Name: MARIBEL SIMPSON Rep #: [id number] : 1940 Provider: ARCHIE Shrestha Age/Sex: 84/F Location: [facility] Status: Signed HPI HPI History of Present [...] Pulse Oximetry (%) 95 Intake Visit Reasons: [facility] ER 01/20 HTN/PALPS Marquetry Worker Required: No Is patient in pain?: No [...] sunday. patient states she has a hernia [facility] Medical History (HFpEF) heart failure with preserved [...] headache(s) o (more content not included)... Normal [facility] 12 Lead EKGon 01-20-2025 12 Lead EKG [facility] Cardiovascular Services [address] [place] [address] 12 Lead EKG 01/20/25 1241 MR#: [id number] Acct: [id number] Name: MARIBEL SIMPSON Rep #: [id number] : 1940 84 From: Jasper Julian MD [...] Abnormal ECG Confirmed by JASPER JULIAN MD ([id number]), art editor ASTRID MERINO ([id number]) on 01/21/2025 10:34:40 AM Referred By: Confirmed By: JASPER JULIAN MD 01/21/25 1034 Date Jasper Julian MD CC: Dr. Laverne Elena DO; Dr. Ronni Sen DO Signed Normal [facility] Absolute lymphocyte countOrd ered By: Laverne Elena on 01-20-2025 Lymphocytes Auto (Unsp spec) [#/Vol] 1.50 10*3/uL 0.83-4.51 [facility] Absolute neutrophil countOrd ered By: Laverne Elena on 01-20-2025 Neutrophils (Bld) [#/Vol] 5.1 10*3/uL 2.0-7.7 [facility] Anion gap in Serum or Plasma Ordered By: Laverne Elena on 01-20-2025 Anion gap [Moles/Vol] 12 mmol/L 01-15 [facility] Automated lymphocyte count a s percentage of total leukocytesOrdered By: Laverne Elena on 01-20-2025 Lymphocytes/100 WBC Auto (Unsp spec) 20.3 % [facility] BUN/creatinine ratioOrdered By: Laverne Elena on 01-20-2025 Urea nitrogen/Creatinine [Mass ratio] 26.3 mg/mg High - [facility] Basophil percentageOrdered B y: Laverne Elena on 01-20-2025 Basophils/100 WBC (Bld) 0.9 % 0-1 [facility] Bilirubin, totalOrdered By: Laverne Elena on 01-20-2025 Bilirubin [Mass/Vol] 0.78 mg/dL 0.00-1.30 [facility] CBC W/Diff, Automatedon 01-02 Absolute Lymph 1.50 X10 3/uL Normal 0.83-4.51 [facility] Comment on above: Performed By: #### L 501.2450, L100.0100, L503.7505, L501.9520, L500.4050, L300.8000, L501.4021 ####[facility] [address] [place], [address] Absolute Neut 5.1 X10 3/uL Normal 2.0-7.7 [facility] Comment on above: Performed By: #### L 501.2450, L100.0100, L503.7505, L501.9520, L500.4050, L300.8000, L501.4021 ####[facility] [address] [place], [address] Basophils/100 WBC (Bld) 0.9 % Normal 0-1 [facility] Comment on above: Performed By: #### L 501.2450, L100.0100, L503.7505, L501.9520, L500.4050, L300.8000, L501.4021 ####[facility] [address] [place], [address] Eosinophils/100 WBC (Bld) 1.4 % Normal 0-5 [facility] Comment on above: Performed By: #### L 501.2450, L100.0100, L503.7505, L501.9520, L500.4050, L300.8000, L501.4021 ####[facility] [address] [place], [address] Erythrocyte distribution width (RBC) [Ratio] 13.4 % Normal 11.6-14.6 [facility] Comment on above: Performed By: #### L 501.2450, L100.0100, L503.7505, L501.9520, L500.4050, L300.8000, L501.4021 ####[facility] [address] [place], [address] Hematocrit (Bld) [Volume fraction] 40.6 % Normal 37-47 [facility] Comment on above: Performed By: #### L 501.2450, L100.0100, L503.7505, L501.9520, L500.4050, L300.8000, L501.4021 ####[facility] [address] [place], [address] Hemoglobin (Bld) [Mass/Vol] 13.5 g/dL Normal 12.0-15.0 [facility] Comment on above: Performed By: #### L 501.2450, L100.0100, L503.7505, L501.9520, L500.4050, L300.8000, L501.4021 ####[facility] [address] [place], [address] IG% 0.400 Normal 0.0-0.9 [facility] Comment on above: Result Comment: IG% - Immature Granulocytes (promyelocytes, myelocytes and metamyelocytes) > 1% indicates that a LEFT SHIFT is Present. Performed By: #### L 501.2450, L100.0100, L503.7505, L501.9520, L500.4050, L300.8000, L501.4021 ####[facility] [address] [place], [address] Lymphocytes/100 WBC (Bld) 20.3 % Normal 19-41 [facility] Comment on above: Performed By: #### L 501.2450, L100.0100, L503.7505, L501.9520, L500.4050, L300.8000, L501.4021 ####[facility] [address] [place], [address] MCH (RBC) [Entitic mass] 31.5 pg Normal 27.0-32.0 [facility] Comment on above: Performed By: #### L 501.2450, L100.0100, L503.7505, L501.9520, L500.4050, L300.8000, L501.4021 ####[facility] [address] [place], [address] MCHC (RBC) [Mass/Vol] 33.3 g/dL Normal 32-36 [facility] Comment on above: Performed By: #### L 501.2450, L100.0100, L503.7505, L501.9520, L500.4050, L300.8000, L501.4021 ####[facility] [address] [place], [address] MCV (RBC) [Entitic vol] 94.6 fL Normal 81-99 [facility] Comment on above: Performed By: #### L 501.2450, L100.0100, L503.7505, L501.9520, L500.4050, L300.8000, L501.4021 ####[facility] [address] [place], [address] Monocytes/100 WBC (Bld) 8.5 % Normal 0-10 [facility] Comment on above: Performed By: #### L 501.2450, L100.0100, L503.7505, L501.9520, L500.4050, L300.8000, L501.4021 ####[facility] [address] [place], [address] Neutrophils/100 WBC (Bld) 68.5 % Normal 47-70 [facility] Comment on above: Performed By: #### L 501.2450, L100.0100, L503.7505, L501.9520, L500.4050, L300.8000, L501.4021 ####[facility] [address] [place], [address] Nucleated RBC (Bld) [#/Vol] 0 10*3/uL Normal 0-5 [facility] Comment on above: Performed By: #### L 501.2450, L100.0100, L503.7505, L501.9520, L500.4050, L300.8000, L501.4021 ####[facility] [address] [place], [address] Platelet mean volume (Bld) [Entitic vol] 10.2 fL Normal 6.2-12.0 [facility] Comment on above: Performed By: #### L 501.2450, L100.0100, L503.7505, L501.9520, L500.4050, L300.8000, L501.4021 ####[facility] [address] [place], [address] Platelets (Bld) [#/Vol] 213 10*3/uL Normal 150-450 [facility] Comment on above: Performed By: #### L 501.2450, L100.0100, L503.7505, L501.9520, L500.4050, L300.8000, L501.4021 ####[facility] [address] [place], [address] RBC (Bld) [#/Vol] 4.29 10*6/uL Normal 4.2-5.4 [facility] Comment on above: Performed By: #### L 501.2450, L100.0100, L503.7505, L501.9520, L500.4050, L300.8000, L501.4021 ####[facility] [address] [place], [address] RDW SD 46.8 fl High 35.1-43.9 [facility] Comment on above: Performed By: #### L 501.2450, L100.0100, L503.7505, L501.9520, L500.4050, L300.8000, L501.4021 ####[facility] [address] [place], [address] WBC (Bld) [#/Vol] 7.4 10*3/uL Normal 4.4-11.0 [facility] Comment on above: Performed By: #### L 501.2450, L100.0100, L503.7505, L501.9520, L500.4050, L300.8000, L501.4021 ####[facility] [address] [place], [address] Carbon dioxide, total [Moles /volume] in Central venous bloodOrdered By: Laverne Elena on 01-20-2025 CO2 [Moles/Vol] 24.3 mmol/L 21.0-32.0 [facility] Chest PA and Lateralon 01-20 Chest PA and Lateral [facility] Imaging Services [address] [place] [address] Chest PA and Lateral MR#: [id number] Acct: [id number] Name: MARIBEL SIMPSON Rep #: [id number] : 1940 F 84 From: Josiah tripp MD PCP: Dr. Ronni Sen, DO Status: REG ER Study: Chest PA and Lateral Date of Exam: 01/20/25 Exam# [id number] Ordering Dr: Laverne Elena DO PROCEDURE: CHEST [...] worse on the right side. Reading Location: [facility] CC: Dr. Laverne Elena, DO; Dr. Ronni Sen, DO Unload Associate: Signed Normal [facility] Chloride assayOrdered By: Kings Elena on 01-20-2025 Chloride [Moles/Vol] 98 mmol/L 98-108 [facility] Comprehensive Metabolic Prof ilon 01-20-2025 Albumin [Mass/Vol] 4.2 g/dL Normal 3.4-4.8 [facility] Comment on above: Performed By: #### L 501.2450, L100.0100, L503.7505, L501.9520, L500.4050, L300.8000, L501.4021 ####[facility] [address] [facility] [place], [address] Albumin/Globulin [Mass ratio] 1.4 {ratio} Normal 0.9-2.4 [facility] Comment on above: Performed By: #### L 501.2450, L100.0100, L503.7505, L501.9520, L500.4050, L300.8000, L501.4021 ####[facility] [address] [place], [address] ALK PHOS 73 U/L Normal 35-104 [facility] Comment on above: Performed By: #### L 501.2450, L100.0100, L503.7505, L501.9520, L500.4050, L300.8000, L501.4021 ####[facility] [address] [place], [address] ALT [Catalytic activity/Vol] 31 U/L Normal <=34 [facility] Comment on above: Performed By: #### L 501.2450, L100.0100, L503.7505, L501.9520, L500.4050, L300.8000, L501.4021 ####[facility] [address] [place], [address] AST [Catalytic activity/Vol] 57 U/L High <=31 [facility] Comment on above: Performed By: #### L 501.2450, L100.0100, L503.7505, L501.9520, L500.4050, L300.8000, L501.4021 ####[facility] [address] [place], [address] Bilirubin [Mass/Vol] 0.78 mg/dL Normal 0.00-1.30 [facility] Comment on above: Performed By: #### L 501.2450, L100.0100, L503.7505, L501.9520, L500.4050, L300.8000, L501.4021 ####[facility] [address] [place], [address] BUN/CRE 26.3 RATIO High 10-20 [facility] Comment on above: Performed By: #### L 501.2450, L100.0100, L503.7505, L501.9520, L500.4050, L300.8000, L501.4021 ####[facility] [address] [place], [address] Calcium [Mass/Vol] 9.5 mg/dL Normal 7.6-11.0 [facility] Comment on above: Performed By: #### L 501.2450, L100.0100, L503.7505, L501.9520, L500.4050, L300.8000, L501.4021 ####[facility] [address] [place], [address] Chloride [Moles/Vol] 98 mmol/L Normal 98-108 [facility] Comment on above: Performed By: #### L 501.2450, L100.0100, L503.7505, L501.9520, L500.4050, L300.8000, L501.4021 ####[facility] [address] [place], [address] CO2 [Moles/Vol] 24.3 mmol/L Normal 21.0-32.0 [facility] Comment on above: Performed By: #### L 501.2450, L100.0100, L503.7505, L501.9520, L500.4050, L300.8000, L501.4021 ####[facility] [address] [place], [address] Creatinine [Mass/Vol] 0.76 mg/dL Normal 0.70-1.20 [facility] Comment on above: Performed By: #### L 501.2450, L100.0100, L503.7505, L501.9520, L500.4050, L300.8000, L501.4021 ####[facility] [address] [place], [address] ECRCL 43.40 ml/min Low 50-250 [facility] Comment on above: Performed By: #### L 501.2450, L100.0100, L503.7505, L501.9520, L500.4050, L300.8000, L501.4021 ####[facility] [address] [place], [address] GAP 12 Normal 5-15 [facility] Comment on above: Performed By: #### L 501.2450, L100.0100, L503.7505, L501.9520, L500.4050, L300.8000, L501.4021 ####[facility] [address] [place], [address] GFR/1.73 sq M.predicted among non-blacks MDRD (S/P/Bld) [Vol rate/Area] 78 mL/min/{1.73_m2} Normal >60 [facility] Comment on above: Result Comment: mL/m in/1.73m2 CKD-EPI Creatinine Equation (2020) Performed By: #### L 501.2450, L100.0100, L503.7505, L501.9520, L500.4050, L300.8000, L501.4021 ####[facility] [address] [place], [address] Globulin (S) [Mass/Vol] 3.0 g/dL Normal 2.2-4.2 [facility] Comment on above: Performed By: #### L 501.2450, L100.0100, L503.7505, L501.9520, L500.4050, L300.8000, L501.4021 ####[facility] [address] [place], [address] Glucose [Mass/Vol] 96 mg/dL Normal 70-99 [facility] Comment on above: Performed By: #### L 501.2450, L100.0100, L503.7505, L501.9520, L500.4050, L300.8000, L501.4021 ####[facility] [address] [place], [address] Potassium [Moles/Vol] 4.5 mmol/L Normal 3.3-5.1 [facility] Comment on above: Performed By: #### L 501.2450, L100.0100, L503.7505, L501.9520, L500.4050, L300.8000, L501.4021 ####[facility] [address] [place], [address] Sodium [Moles/Vol] 135 mmol/L Normal 133-145 [facility] Comment on above: Performed By: #### L 501.2450, L100.0100, L503.7505, L501.9520, L500.4050, L300.8000, L501.4021 ####[facility] [address] [place], [address] T PROT 7.2 g/dL Normal 5.9-8.4 [facility] Comment on above: Performed By: #### L 501.2450, L100.0100, L503.7505, L501.9520, L500.4050, L300.8000, L501.4021 ####[facility] [address] [place], [address] Urea nitrogen [Mass/Vol] 20 mg/dL High 4-19 [facility] Comment on above: Performed By: #### L 501.2450, L100.0100, L503.7505, L501.9520, L500.4050, L300.8000, L501.4021 ####[facility] [address] [place], [address] D-Dimer Quantitative (DVT/PE )on 01-20-2025 D-DIMER QUANT 0.63 FEU/ug/m Invalid Interpretation Code 0.27-0.49 [facility] Comment on above: Result Comment: D-Di lore ELEVATED (>0.49): Additional studies and clinical assessments are indicated to conclude diagnosis of: Deep Vein Thrombosis (DVT) or Pulmonary Embolism (PE) CRITICAL VALUE CALLED TO Cornelius VIRGEN 01/20/25 131Ana Rogers. RESULTS READ BACK BY SAME. Performed By: #### L 501.2450, L100.0100, L503.7505, L501.9520, L500.4050, L300.8000, L501.4021 ####[facility] [address] [place], [address] Emergency Department Summary on 01-20-2025 Emergency Department Summary [facility] Medical Records Department [address] [place] [address] Emergency Department Summary 01/20/25 MR#: [id number] Acct: [id number] Name: MARIBEL SIMPSON Rep #: [id number] : 1940 84 From: Laverne Elena DO [...] Denies any fever. Had the flu around [facility] but that was a month ago. [...] did help her right sided chest discomfort. [facility] Medical History (HFpEF) heart failure with preserved [...] in: none (more content not included)... Normal [facility] Eosinophil percentageOrdered By: Laverne Elena on 01-20-2025 Eosinophils/100 WBC (Bld) 1.4 % 0-5 [facility] Erythrocyte distribution wid th ratioOrdered By: Laverne Elena on 01-20-2025 Erythrocyte distribution width (RBC) [Ratio] 13.4 % 11.6-14.6 [facility] Erythrocyte distribution wid th standard deviationOrdered By: Laverne Elena on 01-20-2025 Erythrocyte distribution width (RBC) [Ratio] 46.8 fl High 35.1-43.9 [facility] Glomerular filtration rate ( GFR) estimation/1.73 sq m using serum, plasma, or whole bOrdered By: Laverne Elena on 01-20-2025 GFR/1.73 sq M.predicted among non-blacks MDRD (S/P/Bld) [Vol rate/Area] 78 mL/min/{1.73_m2} >60 [facility] Comment on above: mL/min/1.73m2 CKD-EP I Creatinine Equation (2020) Hematocrit Auto (Bld) [Volum e fraction]Ordered By: Laverne Elena on 01-20-2025 Hematocrit (Bld) [Volume fraction] 40.6 % 37-47 [facility] Hemoglobin measurementOrdere d By: Laverne Elena on 01-20-2025 Hemoglobin (Bld) [Mass/Vol] 13.5 g/dL 12.0-15.0 [facility] Immature granulocytes/100 WB C Auto (Bld)Ordered By: Laverne Elena on 01-20-2025 Immature granulocytes/100 WBC (Bld) 0.400 % 0.0-0.9 [facility] Comment on above: IG% - Immature Granu locytes (promyelocytes, myelocytes and metamyelocytes) > 1% indicates that a LEFT SHIFT is Present. L499.0042on 01-20-2025 Trop T High Sen 10 ng/L Normal <=14 [facility] Comment on above: Performed By: #### L 499.0042 ####[facility] [address] [place], [address] L499.0043on 01-20-2025 Trop T High Sen Normal <=14 [facility] Comment on above: Result Comment: Canc elled via OM: Order cancelled - Patient discharged Performed By: #### L 499.0043 ####[facility] [address] [place], [address] L501.4021on 01-20-2025 Trop T High Sen 12 ng/L Normal <=14 [facility] Comment on above: Performed By: #### L 501.2450, L100.0100, L503.7505, L501.9520, L500.4050, L300.8000, L501.4021 ####[facility] [address] [place], [address] L503.7505on 01-20-2025 Natriuretic peptide B (Bld) [Mass/Vol] 3460 pg/mL High <=1800 [facility] Comment on above: Result Comment: Hear t Failure Unlikely: < 300 pg/mL Heart Failure Likely < 50 Years: > 450 pg/mL 50-75 Years: > 900 pg/mL >75 Years: > 1800 pg/mL Performed By: #### L 501.2450, L100.0100, L503.7505, L501.9520, L500.4050, L300.8000, L501.4021 ####[facility] [address] [place], [place], [address] Laboratory - Chemistry and C hemistry - challengeOrdered By: Laverne Elena on 01-20-2025 AST [Catalytic activity/Vol] 57 U/L High <32 [facility] Lipaseon 01-20-2025 Lipase [Catalytic activity/Vol] 12 U/L Low 13-75 [facility] Comment on above: Result Comment: Plea se note: LIPASE revised reference range effective 22. New Lipase methodology. Expected to produce lower values than the previous assay method. NEW Reference Range: 13 - 75 U/L Performed By: #### L 501.2450, L100.0100, L503.7505, L501.9520, L500.4050, L300.8000, L501.4021 ####[facility] [address] [facility] [place], [place], [address] Lipase measurementOrdered By : Laverne Elena on 01-20-2025 Lipase [Catalytic activity/Vol] 12 U/L Low 13-75 [facility] Comment on above: Please note:LIPASE r evised reference range effective 22. New Lipase methodology. Expected to produce lower values than the previous assay method. NEW Reference Range: 13 - 75 U/L MCV (mean corpuscular volume ) determinationOrdered By: Laverne Elena on 01-20-2025 MCV (RBC) [Entitic vol] 94.6 fL 81-99 [facility] Mean corpuscular hemoglobin (MCH) determinationOrdered By: Laverne Elena on 01-20-2025 MCH (RBC) [Entitic mass] 31.5 pg 27.0-32.0 [facility] Mean corpuscular hemoglobin concentration (MCHC) determinationOrdered By: Laverne Elena on 01-20-2025 MCHC (RBC) [Mass/Vol] 33.3 g/dL 32-36 [facility] Mean platelet volume determi nationOrdered By: Laverne Elena on 01-20-2025 Platelet mean volume (Bld) [Entitic vol] 10.2 fL 6.2-12.0 [facility] Monocyte percentageOrdered B y: Laverne Elena on 01-20-2025 Monocytes/100 WBC (Bld) 8.5 % 0-10 [facility] Natriuretic peptide.B prohor keith N-Terminal [Mass/volume] in Serum or PlasmaOrdered By: Laverne Elena on 01-20-2025 Natriuretic peptide.B prohormone N-Terminal [Mass/Vol] 3460 pg/mL High <1800 [facility] Comment on above: Heart Failure Unlike ly: < 300 pg/mLHeart Failure Likely< 50 Years: > 450 pg/mL50-75 Years: > 900 pg/mL>75 Years: > 1800 pg/mL Neutrophil percentageOrdered By: Laverne Elena on 01-20-2025 Neutrophils/100 WBC (Bld) 68.5 % 47-70 [facility] Nucleated red blood cell per centageOrdered By: Laverne Elena on 01-20-2025 Nucleated RBC/100 WBC (Bld) [Ratio] 0 % 0-5 [facility] Platelet countOrdered By: Kings Elena on 01-20-2025 Platelets (Bld) [#/Vol] 213 10*3/uL 150-450 [facility] Potassium measurement (mass/ volume)Ordered By: Laverne Elena on 01-20-2025 Potassium (Unsp spec) [Mass/Vol] 4.5 mmol/L 3.3-5.1 [facility] RBC Auto (Bld) [#/Vol]Ordere d By: Laverne Elena on 01-20-2025 RBC (Bld) [#/Vol] 4.29 10*6/uL 4.2-5.4 [facility] Serum creatinine measurement (mass/volume)Ordered By: Laverne Elena on 01-20-2025 Creatinine [Mass/Vol] 0.76 mg/dL 0.70-1.20 [facility] Serum globulin measurementOr dered By: Laverne Elena on 01-20-2025 Globulin (S) [Mass/Vol] 3.0 g/dL 2.2-4.2 [facility] Serum glucose measurement (m ass/volume)Ordered By: Laverne Elena on 01-20-2025 Glucose [Mass/Vol] 96 mg/dL 70-99 [facility] Serum or plasma alanine grissom otransferase (ALT) measurementOrdered By: Laverne Elena on 01-20-2025 ALT [Catalytic activity/Vol] 31 U/L <35 [facility] Serum or plasma albumin paul urement (mass/volume)Ordered By: Laverne Elena on 01-20-2025 Albumin [Mass/Vol] 4.2 g/dL 3.4-4.8 [facility] Serum or plasma albumin/glob ulin mass ratioOrdered By: Laverne Elena on 01-20-2025 Albumin/Globulin [Mass ratio] 1.4 {ratio} 0.9-2.4 [facility] Serum or plasma alkaline augusta sphatase measurementOrdered By: Laverne Elena on 01-20-2025 ALP [Catalytic activity/Vol] 73 U/L 35-104 [facility] Serum or plasma calcium paul urement (mass/volume)Ordered By: Laverne Elena on 01-20-2025 Calcium [Mass/Vol] 9.5 mg/dL 7.6-11.0 [facility] Serum or plasma urea nitroge n measurement (mass/volume)Ordered By: Laverne Elena on 01-20-2025 Urea nitrogen [Mass/Vol] 20 mg/dL High 4-19 [facility] Sodium levelOrdered By: Leana Elena on 01-20-2025 Sodium [Moles/Vol] 135 mmol/L 133-145 [facility] TSH DL <= 0.005 mIU/L QnOrde red By: Laverne Elena on 01-20-2025 TSH Qn 8.900 uIU/mL High 0.300-4.20 0 [facility] Thyroid Stim Hormone (TSH)on 01-20-2025 TSH 8.900 uIU/mL High 0.300-4.20 0 [facility] Comment on above: Performed By: #### L 501.2450, L100.0100, L503.7505, L501.9520, L500.4050, L300.8000, L501.4021 ####[facility] [address] [place], [place], [id number] Total proteinOrdered By: Jada Elena on 01-20-2025 Protein [Mass/Vol] 7.2 g/dL 5.9-8.4 [facility] Troponin T.cardiac [Mass/vol ume] in Serum or Plasma by High sensitivity methodOrdered By: Laverne Elena on 01-20-2025 Troponin T.cardiac High sensitivity method [Mass/Vol] 10 ng/L <14 [facility] Troponin T.cardiac High sensitivity method [Mass/Vol] 12 ng/L <14 [facility] White blood cell (WBC) count Ordered By: Laverne Elena on 01-20-2025 WBC (Bld) [#/Vol] 7.4 10*3/uL 4.4-11.0 [facility] 12 Lead EKG performed by [facility] on 12-05-2024 12 Lead EKG performed by [address] [address] 12 Lead EKG performed by [facility] 12/05/24 113 MR#: [id number] Acct: [id number] Name: MARIBEL SIMPSON Rep #: [id number] : 1940 84 From: Goyo Díaz MD Attending Dr: Dr. Goyo Díaz MD Status: DE P AMB Ordering Dr: Goyo Díaz MD Date: 12/05/24 Location: [facility] Sex: F C Admitted: BMS/12 Lead EKG performed by [facility] ECG Report Interpretation Atrial flutter-fibrillation ABNORMAL RHYTHMElectronically signed on 12/05/2024 at 15:07 by Jasper Julian [employer] Version 8610 12/05/24 9830 Date Goyo Díaz MD CC: Dr. Ronni Sen DO Date Dictated: 12/05/24 113 Date Transcribed: 12/05/241129 Unload Associate: Signed Normal [facility] Office Visit Reporton 2024 Office Visit Report [facility] [address] [place] [address] OFFICE VISIT Date of Service: 12/05/24 MR#: [id number] Acct: [id number] Patient: MARIBEL SIMPSON Rep #: [id number] : 1940 Provider: Dr. Goyo robert MD Age/Sex: 84/F Location: [facility] Status: Signed Intake Vital Signs 10/08/24 11:18 [...] would like daughter Keyla called with advice [phone]. Assessment and Plan Assessment and Plan (1) [...] Orders: Orders 12 Lead EKG performed by [facility] Today I48.1 - Persistent atrial fibrillation Clinical Quality Measures Falls Risk Screening/Assistive Devices Have you fallen in the past year?: Yes 12/05/24 1438 Date Goyo Mckeon Signature: Date (if applicable) CC: Normal [facility] Internal Medicine Office Vis zelda 10-08-2024 Internal Medicine Office Visit [facility] [address] [place], [place] [address] OFFICE VISIT Date of Service: 10/08/24 MR#: [id number] Acct: [id number] Name: MARIBEL SIMPSON Rep #: [id number] : 1940 Provider: Dr. Ronni ca, DO Age/Sex: 84/F Location: [facility] Status: Signed Intake Vital Signs 07/09/24 11:20 [...] PATIENT WILL BE ADMITTING TO [facility] Medical History (HFpEF) heart failure with preserved [...] ENT ENT (more content not included)... Normal [facility] 12 Lead EKG performed by [facility] on 09-15-2024 12 Lead EKG performed by [facility] [address] [place] [address] 12 Lead EKG performed by [facility] 09/15/24 0941 MR#: [id number] Acct: [id number] Name: MARIBEL SIMPSON Rep #: [id number] : 1940 84 From: Goyo Díaz MD Attending Dr: Dr. Goyo Díaz MD Status: DE P [facility] Ordering Dr: Goyo Díaz MD Date: 09/15/24 Location: [facility] Sex: F C Admitted: BMS/12 Lead EKG performed by [facility] ECG Report Interpretation Atrial fibrillation - occasional ectopic ventricular beat -Diffuse ST depression + Negative precordial T-waves -Nondiagnostic -possible digitalis effect, ABNORMAL Electronically signed on 09/15/2024 at 16:[address] Goyo Díaz [employer] Version [id number] 09/15/24 1624 Date Goyo Díaz MD CC: Dr. Ronni Sen, Date Dictated: 09/15/24940 Date Transcribed: 09/15/24940 Unload Associate: Signed Normal [facility] Cardiology Visit Reporton Cardiology Visit Report [facility] [place] [address] OFFICE VISIT Date of Service: 09/15/24 MR#: [id number] Acct: [id number] Name: MARIBEL SIMPSON Rep #: [id number] : 1940 Provider: Dr. 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 Normal [facility] CBC W/Diff, Automatedon 11-0 -2023 Absolute Lymph 1.54 X10 3/uL Normal 0.83-4.51 [facility] Comment on above: Performed By: #### L 501.7510, L100.0100, L500.4050, L503.0105 #### [facility] [address] [place], [address] Absolute Neut 2.9 X10 3/uL Normal 2.0-7.7 [facility] Comment on above: Performed By: #### L 501.7510, L100.0100, L500.4050, L503.0105 #### [facility] [address] [place], [address] Basophils/100 WBC (Bld) 0.8 % Normal 0-1 [facility] Comment on above: Performed By: #### L 501.7510, L100.0100, L500.4050, L503.0105 #### [facility] [address] [place], [address] Eosinophils/100 WBC (Bld) 2.5 % Normal 0-5 [facility] Comment on above: Performed By: #### L 501.7510, L100.0100, L500.4050, L503.0105 #### [facility] [address] [place], [address] Erythrocyte distribution width (RBC) [Ratio] 13.2 % Normal 11.6-14.6 [facility] Comment on above: Performed By: #### L 501.7510, L100.0100, L500.4050, L503.0105 #### [facility] [address] [place], [address] Hematocrit (Bld) [Volume fraction] 39.3 % Normal 37-47 [facility] Comment on above: Performed By: #### L 501.7510, L100.0100, L500.4050, L503.0105 #### [facility] [address] [place], [address] Hemoglobin (Bld) [Mass/Vol] 12.4 g/dL Normal 12.0-15.0 [facility] Comment on above: Performed By: #### L 501.7510, L100.0100, L500.4050, L503.0105 #### [facility] [address] [place], [address] IG% 0.200 Normal 0.0-0.9 [facility] Comment on above: Result Comment: IG% - Immature Granulocytes (promyelocytes, myelocytes and metamyelocytes) > 1% indicates that a LEFT SHIFT is Present. Performed By: #### L 501.7510, L100.0100, L500.4050, L503.0105 #### [facility] [address] [place], [address] Lymphocytes/100 WBC (Bld) 29.8 % Normal 19-41 [facility] Comment on above: Performed By: #### L 501.7510, L100.0100, L500.4050, L503.0105 #### [facility] [address] [place], [address] MCH (RBC) [Entitic mass] 31.3 pg Normal 27.0-32.0 [facility] Comment on above: Performed By: #### L 501.7510, L100.0100, L500.4050, L503.0105 #### [facility] [address] [place], [address] MCHC (RBC) [Mass/Vol] 31.6 g/dL Low 32-36 [facility] Comment on above: Performed By: #### L 501.7510, L100.0100, L500.4050, L503.0105 #### [facility] [address] [place], [address] MCV (RBC) [Entitic vol] 99.2 fL High 81-99 [facility] Comment on above: Performed By: #### L 501.7510, L100.0100, L500.4050, L503.0105 #### [facility] [address] [place], [address] Monocytes/100 WBC (Bld) 10.6 % High 0-10 [facility] Comment on above: Performed By: #### L 501.7510, L100.0100, L500.4050, L503.0105 #### [facility] [address] [place], [address] Neutrophils/100 WBC (Bld) 56.1 % Normal 47-70 [facility] Comment on above: Performed By: #### L 501.7510, L100.0100, L500.4050, L503.0105 #### [facility] [address] [place], [address] Nucleated RBC (Bld) [#/Vol] 0 10*3/uL Normal 0-5 [facility] Comment on above: Performed By: #### L 501.7510, L100.0100, L500.4050, L503.0105 #### [facility] [address] [place], [address] Platelet mean volume (Bld) [Entitic vol] 11.0 fL Normal 6.2-12.0 [facility] Comment on above: Performed By: #### L 501.7510, L100.0100, L500.4050, L503.0105 #### [facility] [address] [place], [address] Platelets (Bld) [#/Vol] 192 10*3/uL Normal 150-450 [facility] Comment on above: Performed By: #### L 501.7510, L100.0100, L500.4050, L503.0105 #### [facility] [address] [place], [address] RBC (Bld) [#/Vol] 3.96 10*6/uL Low 4.2-5.4 [facility] Comment on above: Performed By: #### L 501.7510, L100.0100, L500.4050, L503.0105 #### [facility] [address] [place], [address] RDW SD 48.6 fl High 35.1-43.9 [facility] Comment on above: Performed By: #### L 501.7510, L100.0100, L500.4050, L503.0105 #### [facility] [address] [place], [address] WBC (Bld) [#/Vol] 5.2 10*3/uL Normal 4.4-11.0 [facility] Comment on above: Performed By: #### L 501.7510, L100.0100, L500.4050, L503.0105 #### [facility] [address] [place], [address] Comprehensive Metabolic [facility] ilon 07-09-2024 Albumin [Mass/Vol] 3.9 g/dL Normal 3.2-5.0 [facility] Comment on above: Performed By: #### L 501.7510, L100.0100, L500.4050, L503.0105 ####[facility] [address] [place], [address] Albumin/Globulin [Mass ratio] 1.1 {ratio} Normal 0.9-2.4 [facility] Comment on above: Performed By: #### L 501.7510, L100.0100, L500.4050, L503.0105 ####[facility] [address] [place], [address] ALK P 60 U/L Normal 45-117 [facility] Comment on above: Performed By: #### L 501.7510, L100.0100, L500.4050, L503.0105 ####[facility] [address] [place], [address] ALT [Catalytic activity/Vol] 25 U/L Normal 13-56 [facility] Comment on above: Performed By: #### L 501.7510, L100.0100, L500.4050, L503.0105 ####[facility] [address] [place], [address] AST [Catalytic activity/Vol] 30 U/L Normal 15-37 [facility] Comment on above: Performed By: #### L 501.7510, L100.0100, L500.4050, L503.0105 ####[facility] [address] [place], [address] Bilirubin [Mass/Vol] 0.80 mg/dL Normal 0.20-1.00 [facility] Comment on above: Result Comment: For patients on eltrombopag therapy, use of Dimension [place] TBIL is not recommended. Performed By: #### L 501.7510, L100.0100, L500.4050, L503.0105 ####[facility] [address] [place], [address] BUN/CRE 20.6 RATIO High 10-20 [facility] Comment on above: Performed By: #### L 501.7510, L100.0100, L500.4050, L503.0105 ####[facility] [address] [place], [address] CA,Total 9.6 mg/dL Normal 8.5-10.1 [facility] Comment on above: Performed By: #### L 501.7510, L100.0100, L500.4050, L503.0105 ####[facility] [address] [place], [address] Chloride [Moles/Vol] 103 mmol/L Normal 98-107 [facility] Comment on above: Performed By: #### L 501.7510, L100.0100, L500.4050, L503.0105 ####[facility] [address] [place], [address] CO2 [Moles/Vol] 31.0 mmol/L Normal 21.0-32.0 [facility] Comment on above: Performed By: #### L 501.7510, L100.0100, L500.4050, L503.0105 ####[facility] [address] [place], [address] Creatinine [Mass/Vol] 0.83 mg/dL Normal 0.55-1.02 [facility] Comment on above: Result Comment: The validity of the calculated GFR GFRAA in patients over 70 years has not been determined. Clinical correlation is essential. Performed By: #### L 501.7510, L100.0100, L500.4050, L503.0105 ####[facility] [address] [place], [address] EST GFR - AA 85 mL/min Normal >60 [facility] Comment on above: Result Comment: Afri can [place] GFR Calc Performed By: #### L 501.7510, L100.0100, L500.4050, L503.0105 ####[facility] [address] [place], [address] GAP 5 Normal 5-15 [facility] Comment on above: Performed By: #### L 501.7510, L100.0100, L500.4050, L503.0105 ####[facility] [address] [place], [address] GFR/1.73 sq M.predicted among non-blacks MDRD (S/P/Bld) [Vol rate/Area] 70 mL/min/{1.73_m2} Normal >60 [facility] Comment on above: Result Comment: Non- GFR Calc Performed By: #### L 501.7510, L100.0100, L500.4050, L503.0105 ####[facility] [address] [place], [address] Globulin (S) [Mass/Vol] 3.4 g/dL Normal 2.2-4.2 [facility] Comment on above: Performed By: #### L 501.7510, L100.0100, L500.4050, L503.0105 ####[facility] [address] [place], [address] Glucose [Mass/Vol] 82 mg/dL Normal 74-106 [facility] Comment on above: Performed By: #### L 501.7510, L100.0100, L500.4050, L503.0105 ####[facility] [address] [place], [address] Potassium [Moles/Vol] 4.6 mmol/L Normal 3.5-5.1 [facility] Comment on above: Performed By: #### L 501.7510, L100.0100, L500.4050, L503.0105 ####[facility] [address] [place], [address] Sodium [Moles/Vol] 138 mmol/L Normal 136-145 [facility] Comment on above: Performed By: #### L 501.7510, L100.0100, L500.4050, L503.0105 ####[facility] [address] [place], [address] T PROT 7.3 g/dL Normal 6.4-8.2 [facility] Comment on above: Performed By: #### L 501.7510, L100.0100, L500.4050, L503.0105 ####[facility] [address] [place], [address] Urea nitrogen [Mass/Vol] 17 mg/dL Normal 7-18 [facility] Comment on above: Performed By: #### L 501.7510, L100.0100, L500.4050, L503.0105 ####[facility] [address] [place], [address] Digoxin Levelon 07-09-2024 DIG 1.10 ng/mL Normal 0.80-2.00 [facility] Comment on above: Performed By: #### L 501.7510, L100.0100, L500.4050, L503.0105 ####[facility] [address] [place], [address] Internal Medicine Office Vis iton 07-09-2024 Internal Medicine Office Visit [facility] [address] [place] [address] [place] [address] OFFICE VISIT Date of Service: 07/09/24 MR#: [id number] Acct: [id number] Name: MARIBEL SIMPSON Rep #: [id number] : 1940 Provider: Dr. 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 Normal [facility] Vitamin B12on 07-09-2024 Cobalamin (Vitamin B12) [Mass/Vol] 759 pg/mL Normal 211-911 [facility] Comment on above: Performed By: #### L 501.7510, L100.0100, L500.4050, L503.0105 #### [facility] [address] [place], [address] Absolute lymphocyte countOrd ered By: Ronni Sen on 03-07-2023 Lymphocytes Auto (Unsp spec) [#/Vol] 1.92 10*3/uL 0.83-4.51 [facility] Basophil percentageOrdered B y: Ronni Sen on 03-07-2023 Basophils/100 WBC (Bld) 0.7 % 0-1 [facility] Bilirubin [Mass/Vol] 0.50 mg/dL 0.20-1.00 [facility] Comment on above: For patients on eltr ombopag therapy, use of Dimension [place] TBIL is not recommended. Chloride [Moles/Vol] 101 mmol/L 98-107 [facility] Eosinophils/100 WBC (Bld) 1.8 % 0-5 [facility] Glucose [Mass/Vol] 82 mg/dL 74-106 [facility] Neutrophils (Bld) [#/Vol] 4.0 10*3/uL 2.0-7.7 [facility] Neutrophils/100 WBC (Bld) 59.9 % 47-70 [facility] Potassium [Moles/Vol] 4.3 mmol/L 3.5-5.1 [facility] Protein [Mass/Vol] 7.2 g/dL 6.4-8.2 [facility] Sodium [Moles/Vol] 137 mmol/L 136-145 [facility] WBC (Bld) [#/Vol] 6.7 10*3/uL 4.4-11.0 [facility] Blood erythrocytes count (nu mber/volume)Ordered By: Ronni Sen on 03-07-2023 RBC (Bld) [#/Vol] 4.08 10*6/uL 4.2-5.4 [facility] Blood hemoglobin measurement (mass/volume)Ordered By: Ronni Sen on 03-07-2023 Hemoglobin (Bld) [Mass/Vol] 12.7 g/dL 12.0-15.0 [facility] Blood lymphocytes/100 leukoc ytesOrdered By: Ronni Sen on 03-07-2023 Lymphocytes/100 WBC (Bld) 28.5 % 19-41 [facility] Blood monocytes/100 leukocyt esOrdered By: Ronni Sen on 03-07-2023 Monocytes/100 WBC (Bld) 8.8 % 0-10 [facility] Blood platelet mean volumeOr dered By: Ronni Sen on 03-07-2023 Platelet mean volume (Bld) [Entitic vol] 10.7 fL 6.2-12.0 [facility] Determination of erythrocyte mean corpuscular volume (MCV)Ordered By: Ronni Sen on 03-07-2023 MCV (RBC) [Entitic vol] 100.2 fL 81-99 [facility] Hematocrit Auto (Bld) [Volum e fraction]Ordered By: Ronni Sen on 03-07-2023 Hematocrit (Bld) [Volume fraction] 40.9 % 37-47 [facility] - Chemistry and C hemistry - challengeOrdered By: Ronnishiloh Sen on 03-07-2023 ALP [Catalytic activity/Vol] 48 U/L 45-117 [facility] ALT [Catalytic activity/Vol] 27 U/L 13-56 [facility] CO2 [Moles/Vol] 32.0 mmol/L 21.0-32.0 [facility] Free T4 [Mass/Vol] 0.77 ng/dL 0.76-1.46 [facility] Globulin (S) [Mass/Vol] 3.6 g/dL 2.2-4.2 [facility] Urea nitrogen/Creatinine [Mass ratio] 30.6 mg/mg 10-20 [facility] - Hematology and Cell countsOrdered By: Ronni Sen on 03-07-2023 Erythrocyte distribution width (RBC) [Entitic vol] 47.7 fL 35.1-43.9 [facility] Erythrocyte distribution width (RBC) [Ratio] 13.0 % 11.6-14.6 [facility] Immature granulocytes/100 WBC (Bld) 0.300 % 0.0-0.9 [facility] Comment on above: IG% - Immature Granu locytes (promyelocytes, myelocytes and metamyelocytes) > 1% indicates that a LEFT SHIFT is Present. MCH (RBC) [Entitic mass] 31.1 pg 27.0-32.0 [facility] Nucleated RBC/100 WBC (Bld) [Ratio] 0 % 0-5 [facility] MCHC Auto (RBC) [Mass/Vol]Or dered By: Ronni Sen on 03-07-2023 MCHC (RBC) [Mass/Vol] 31.1 g/dL 32-36 [facility] No Panel InformationOrdered By: Ronni Sen on 03-07-2023 Estimated GFR (MDRD) Amer 95 mL/min >60 [facility] Comment on above: GFR Calc Estimated GFR (MDRD) Non-Af Amer 79 mL/min >60 [facility] Comment on above: Non- GFR Calc Thyroid Stimulating Hormone (TSH) 3.63 uIU/mL 0.358-3.74 [facility] Platelets bldOrdered By: Pito Sen on 03-07-2023 Platelets (Bld) [#/Vol] 205 10*3/uL 150-450 [facility] Serum or plasma albumin paul urement (mass/volume)Ordered By: Ronni Sne on 03-07-2023 Albumin [Mass/Vol] 3.6 g/dL 3.2-5.0 [facility] Serum or plasma albumin/glob ulin mass ratioOrdered By: Ronni Sen on 03-07-2023 Albumin/Globulin [Mass ratio] 1.0 {ratio} 0.9-2.4 [facility] Serum or plasma calcium paul urement (mass/volume)Ordered By: Ronni Sen on 03-07-2023 Calcium [Mass/Vol] 9.2 mg/dL 8.5-10.1 [facility] Serum or plasma creatinine m easurement (mass/volume)Ordered By: Ronni Sen on 03-07-2023 Creatinine [Mass/Vol] 0.75 mg/dL 0.55-1.02 [facility] Comment on above: The validity of the calculated GFR & GFRAA in patients over 70 years has not been determined. Clinical correlation is essential. Serum or plasma urea nitroge n measurement (mass/volume)Ordered By: Ronni Sen on 03-07-2023 Urea nitrogen [Mass/Vol] 23 mg/dL 7-18 [facility] Thin prep Papanicolaou smear with manual screeningOrdered By: Ronni Sen on 03-07-2023 Thin prep Papanicolaou smear with manual screening 31 U/L 15-37 [facility] Thin prep Papanicolaou smear with manual screening 4 5-15 [facility] Basophil percentageOrdered B y: Dr. Sen on 12-05-2022 Basophil percentage 5-10 SEEN /hpf 0-5 [facility] Bilirubin Test strip Ql (U)O rdered By: Dr. Sen on 12-05-2022 Bilirubin Ql (U) Negative Negative [facility] Ketones Test strip Ql (U)Ord ered By: Dr. Sen on 12-05-2022 Ketones Ql (U) Negative Negative [facility] Mucus LM Ql (Urine sed)Order ed By: Dr. Sen on 12-05-2022 Mucus Ql (Urine sed) 0 SEEN /hpf [facility] Nitrite Test strip Ql (U)Ord ered By: Dr. Sen on 12-05-2022 Nitrite Ql (U) Negative Negative [facility] No Panel InformationOrdered By: Dr. Sen on 12-05-2022 Vitamin D 25-Hydroxy 58.7 ng/mL [facility] Comment on above: Vitamin D 25(OH) Sta tus Range Deficiency <20 ng/mL (50nmol/L) Insufficiency 20 - 30 ng/mL (50 - 75 nmol/L) Sufficiency 30 - 100 ng/mL (75 - 250 nmol/L) Toxicity >100 ng/mL (>250 nmol/L) Protein Test strip Ql (U)Ord ered By: Dr. Sen on 12-05-2022 Protein Ql (U) Negative Negative [facility] Squamous epithelial cells de tection in urine sediment by light microscopyOrdered By: Dr. Sen on 12-05-2022 Epithelial cells.squamous LM Ql (Urine sed) 0-5 SEEN /hpf 5-10 [facility] Urine blood detectionOrdered By: Dr. Sen on 12-05-2022 RBC Ql (U) 10 /ul Negative [facility] RBC Ql (U) 0 SEEN /hpf 0-5 [facility] Urine clarityOrdered By: Dr. Sen on 12-05-2022 Clarity (U) Clear Clear [facility] Urine color determinationOrd ered By: Dr. Sen on 12-05-2022 Color (U) Yellow Yellow [facility] Urine glucose detectionOrder ed By: Dr. Sen on 12-05-2022 Glucose Ql (U) Normal mg/dl Normal [facility] Urine leukocyte esterase det ection by dipstickOrdered By: Dr. Sen on 12-05-2022 Leukocyte esterase Test strip Ql (U) 500 /ul Negative [facility] Urine pHOrdered By: Dr. Elsa johnson on 12-05-2022 pH (U) 6.0 [pH] 5.0 - 8.0 [facility] Urine sediment bacteria coun t by microscopy (number/high power field)Ordered By: Dr. Sen on 12-05-2022 Bacteria LM.HPF (Urine sed) [#/Area] RARE /hpf None Seen [facility] Urine specific gravity measu rementOrdered By: Dr. Sen on 12-05-2022 Specific gravity (U) [Rel density] 1.010 1.002-1.03 0 [facility] Urobilinogen Auto test strip Ql (U)Ordered By: Dr. Sen on 12-05-2022 Urobilinogen Ql (U) Normal mg/dl Normal [facility] Basophil percentageon 2021 Bilirubin [Mass/Vol] 0.80 mg/dL 0.20-1.00 [facility] Work Phone: Comment on above: For patients on eltr ombopag therapy, use of Dimension [place] TBIL is not recommended. Chloride [Moles/Vol] 102 mmol/L 98-107 [facility] Work Phone: Cholesterol [Mass/Vol] 159 mg/dL <200 [facility] Work Phone: Comment on above: <200 mg/dL Desirable 200-240 mg/dL Borderline >240 mg/dL High Risk Glucose [Mass/Vol] 78 mg/dL 74-106 [facility] Work Phone: Potassium [Moles/Vol] 4.5 mmol/L 3.5-5.1 [facility] Work Phone: Protein [Mass/Vol] 6.8 g/dL 6.4-8.2 [facility] Work Phone: Sodium [Moles/Vol] 139 mmol/L 136-145 [facility] Work Phone: Triglyceride [Mass/Vol] 119 mg/dL [facility] Work Phone: Comment on above: The drugs N-Acetylcy steine and Metamizole may falsely depress this assay.Serum Triglycerides Reference Interval Normal <150 mg/dL Borderline high 150 - 199 mg/dL High 200 - 499 mg/dL Very High > or = 500 mg/dL WBC (Bld) [#/Vol] 4.7 10*3/uL 4.4-11.0 [facility] Work Phone: Blood erythrocytes count (nu mber/volume)on 01-17-2022 RBC (Bld) [#/Vol] 3.97 10*6/uL 4.2-5.4 [facility] Work Phone: Blood hemoglobin measurement (mass/volume)on 01-17-2022 Hemoglobin (Bld) [Mass/Vol] 12.8 g/dL 12.0-15.0 [facility] Work Phone: Blood platelet mean volumeon 01-17-2022 Platelet mean volume (Bld) [Entitic vol] 10.9 fL 6.2-12.0 [facility] Work Phone: Determination of erythrocyte mean corpuscular volume (MCV)on 01-17-2022 MCV (RBC) [Entitic vol] 101.0 fL 81-99 [facility] Work Phone: Hematocrit Auto (Bld) [Volum e fraction]on 01-17-2022 Hematocrit (Bld) [Volume fraction] 40.1 % 37-47 [facility] Work Phone: Laboratory - Chemistry and C hemistry - challengeon 01-17-2022 ALP [Catalytic activity/Vol] 53 U/L 45-117 [facility] Work Phone: ALT [Catalytic activity/Vol] 28 U/L 13-56 [facility] Work Phone: CO2 [Moles/Vol] 33.0 mmol/L 21.0-32.0 [facility] Work Phone: Globulin (S) [Mass/Vol] 3.2 g/dL 2.2-4.2 [facility] Work Phone: Urea nitrogen/Creatinine [Mass ratio] 25.6 mg/mg 10-20 [facility] Work Phone: Laboratory - Hematology and Cell countson 01-17-2022 Erythrocyte distribution width (RBC) [Entitic vol] 51.3 fL 35.1-43.9 [facility] Work Phone: Erythrocyte distribution width (RBC) [Ratio] 13.7 % 11.6-14.6 [facility] Work Phone: MCH (RBC) [Entitic mass] 32.2 pg 27.0-32.0 [facility] Work Phone: MCHC Auto (RBC) [Mass/Vol]on 01-17-2022 MCHC (RBC) [Mass/Vol] 31.9 g/dL 32-36 [facility] Work Phone: No Panel Informationon 01-17 Digoxin Level 1.29 ng/mL 0.80-2.00 [facility] Work Phone: Estimated GFR (MDRD) Amer 82 mL/min >60 [facility] Work Phone: Comment on above: GFR Calc Estimated GFR (MDRD) Non-Af Amer 68 mL/min >60 [facility] Work Phone: Comment on above: Non- GFR Calc Platelets bldon 01-17-2022 Platelets (Bld) [#/Vol] 171 10*3/uL 150-450 [facility] Work Phone: Serum or plasma albumin paul urement (mass/volume)on 01-17-2022 Albumin [Mass/Vol] 3.6 g/dL 3.2-5.0 [facility] Work Phone: Serum or plasma albumin/glob ulin mass ratioon 01-17-2022 Albumin/Globulin [Mass ratio] 1.1 {ratio} 0.9-2.4 [facility] Work Phone: Serum or plasma calcium paul urement (mass/volume)on 01-17-2022 Calcium [Mass/Vol] 9.2 mg/dL 8.5-10.1 [facility] Work Phone: Serum or plasma cholesterol in HDL measurement (mass/volume)on 01-17-2022 Cholesterol in HDL [Mass/Vol] 64 mg/dL [facility] Work Phone: Comment on above: The drugs N-Acetylcy steine and Metamizole may falsely depress this assay. Reference Range HDL <40 mg/dL Low HDL Cholesterol HDL >or= 60 mg/dL High HDL Cholesterol Serum or plasma cholesterol in VLDL measurement (mass/volume)on 01-17-2022 Cholesterol in VLDL [Mass/Vol] 24 mg/dL 5-40 [facility] Work Phone: Serum or plasma creatinine m easurement (mass/volume)on 01-17-2022 Creatinine [Mass/Vol] 0.86 mg/dL 0.55-1.02 [facility] Work Phone: Comment on above: The validity of the calculated GFR & GFRAA in patients over 70 years has not been determined. Clinical correlation is essential. Serum or plasma low density lipoprotein (LDL) cholesterol measurement (mass/volume)on 01-17-2022 Cholesterol in LDL [Mass/Vol] 71 mg/dL 0-130 [facility] Work Phone: Serum or plasma urea nitroge n measurement (mass/volume)on 01-17-2022 Urea nitrogen [Mass/Vol] 22 mg/dL 7-18 [facility] Work Phone: Thin prep Papanicolaou smear with manual screeningon 01-17-2022 Thin prep Papanicolaou smear with manual screening 33 U/L 15-37 [facility] Work Phone: Thin prep Papanicolaou smear with manual screening 4 5-15 [facility] Work Phone: History and Physical [...] Last Updated: 19-Jun-2019 06:31 by Isreal Sanon) [facility] Preop Checkliston 06-19-2019 Preop Checklist Preop Checklist: Preop Checklist: Arrival [id number] Arrival Time07:05 NPO [id number] 04:30 NPO Commentsip of water with meds [...] Updated: 19-Jun-2019 07:40 by Kerrie Hill (SHEYLA) [facility] Patient Profile - Preop v2on 06-18-2019 Patient Profile - Preop v2 Profile: Initial Info: How to be AddressedMalinda Spoken Language PreferredEnglish Source of Informationpatient Are you currently using the Personal Electronic Health Record or [employer] Are you interested in learning more about [facility] for the management of your healthnot at this time Instructions Givenappropriate clothing, 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 Are there any cultural, spiritual, voodoo practices/values/needs that are important for us to knowno Do you want a visit/item from [facility] Would you like your Monogram Maker/Cnc Service Engineer notifiedno Pain Scalenumerical 0-10 Pain Scale Educationteaching [...] Updated: 19-Jun-2019 07:29 by Kerrie Hill (RN) [facility] LIPIDon 05-16-2018 Cholesterol in HDL mass conc 96 mg/dL High 40-60 [facility] ([place]) Comment on above: Performed By: #### L IPID ####[address] [address] Cholesterol in LDL mass conc 109 mg/dL Normal 0-130 [facility] ([place] Comment on above: Performed By: #### L IPID ####[id number] [place] [address] Cholesterol mass conc 213 mg/dL High 0-200 [facility] ([place]) Comment on above: Result Comment: Chol esterol Reference Interval:Less than 200 [id number] Borderline high [id number] and above High risk Performed By: #### L IPID ####[facility] [address] Triglyceride mass conc 41 mg/dL Normal 0-150 [facility] ([place]) Comment on above: Result Comment: Trig lyceride Reference Interval:Less than 150 [id number] Borderline high [id number] High [id number] or higher Very high risk Performed By: #### L IPID ####[place] [id number] [place], [place] [id number] [place] MYOCARDIAL SPECT STRESS/R ESTon 05-16-2018 NM [...] AM Sign Date: 05/16/2018 11:39:10 AM Normal [facility] ([place]) [place] Stress Teston 05-16 [place] Stress Test Normal [facility]) FT4on 02-20-2018 T4 free mass conc 0.9 ng/mL Normal 0.6-1.7 [facility] ([place]) Comment on above: Result Comment: Claudia w normal(expected)range Performed By: #### T SH, FT4 ####[facility] [place], [place] [address]#### T3 ####[place] [id number] [place], [place] [id number] T3on 02-20-2018 Total T3 113 ng/dL Normal 60-181 [facility] ([place]) Comment on above: Result Comment: Antonietta pollock note ? as of 03/17/17 new pediatric reference intervals were added for this test. Performed By: #### T SH, FT4 ####[facility] [place], [place] [address]#### T3 ####[place] [id number] [address] TSHon 02-20-2018 Thyrotropin Qn 1.90 mcIU/mL Normal 0.27-4.20 [facility] ([place]) Comment on above: Performed By: #### T SH, FT4 ####[place] [place], [place] [address]#### T3 ####[place] [id number] [place] [address] Vital Signs Date Time Vital Sign Value Performing Clinician Rob castro 06-04-2025 07:51-0400 Body height 167.[address] Ronni Sen DO Work Phone: [facility] 06-04-2025 07:51-0400 Body mass index (BMI) [Ratio] 16.7 kg/m2 Dr. Ronni Sen DO Work Phone: [facility] 06-04-2025 07:51-0400 Body weight 47.[address] Ronni Sen DO Work Phone: [facility] 06-04-2025 07:51-0400 Diastolic blood pressure 61 mm[Hg] Dr. Ronni Sen DO Work Phone: [facility] 06-04-2025 07:51-0400 Heart rate 66 /min Dr. Ronni Sen DO Work Phone: [facility] 06-04-2025 07:51-0400 Respiratory rate 16 /min Dr. Ronni Sen DO Work Phone: [facility] 06-04-2025 07:51-0400 SaO2% (BldA) [Mass fraction] 94 % Dr. Ronni Sen DO Work Phone: [facility] 06-04-2025 07:51-0400 Systolic blood pressure 99 mm[Hg] Dr. Ronni Sen DO Work Phone: [facility] 04-22-2025 11:19-0400 Body height 167.[address] Ronni Sen DO Work Phone: [facility] 04-22-2025 11:19-0400 Body mass index (BMI) [Ratio] 16.9 kg/m2 Dr. Ronni Sen DO Work Phone: [facility] 04-22-2025 11:19-0400 Body temperature 96.2 [degF] Dr. Ronni Sen DO Work Phone: [facility] 04-22-2025 11:19-0400 Body weight 47.[address] Ronni Sen DO Work Phone: [facility] 04-22-2025 11:19-0400 Diastolic blood pressure 60 mm[Hg] Dr. Ronni Sen DO Work Phone: [facility] 04-22-2025 11:19-0400 Heart rate 82 /min Dr. Ronni Sen DO Work Phone: [facility] 04-22-2025 11:19-0400 Respiratory rate 18 /min Dr. Ronni Sen DO Work Phone: [facility] 04-22-2025 11:19-0400 SaO2% (BldA) [Mass fraction] 97 % Dr. Ronni Sen DO Work Phone: [facility] 04-22-2025 11:19-0400 Systolic blood pressure 120 mm[Hg] Dr. Ronni Sen DO Work Phone: [facility] 04-22-2025 09:42-0400 Body height [address] Ronni Sen DO Work Phone: [facility] 04-22-2025 09:42-0400 Body mass index (BMI) [Ratio] 16.3 kg/m2 Dr. Ronni Sen DO Work Phone: [facility] 04-22-2025 09:42-0400 Body weight 47.[address] Ronni Sen DO Work Phone: [facility] 04-22-2025 09:42-0400 Diastolic blood pressure 69 mm[Hg] Dr. Ronni Sen DO Work Phone: [facility] 04-22-2025 09:42-0400 Heart rate 83 /min Dr. Ronni Sen DO Work Phone: [facility] 04-22-2025 09:42-0400 Respiratory rate 16 /min Dr. Ronni Sen DO Work Phone: [facility] 04-22-2025 09:42-0400 SaO2% (BldA) [Mass fraction] 96 % Dr. Ronni Sen DO Work Phone: [facility] 04-22-2025 09:42-0400 Systolic blood pressure 110 mm[Hg] Dr. Ronni Sen DO Work Phone: [facility] 03-18-2025 14:48-0400 Body height [address] Ronni Sen DO Work Phone: [facility] 03-18-2025 14:48-0400 Body mass index (BMI) [Ratio] 16.6 kg/m2 Dr. Ronni Sen DO Work Phone: [facility] 03-18-2025 14:48-0400 Body weight 48.[address] Ronni Sen DO Work Phone: [facility] 03-18-2025 14:48-0400 Diastolic blood pressure 59 mm[Hg] Dr. Ronni Sen DO Work Phone: [facility] 03-18-2025 14:48-0400 Heart rate 94 /min Dr. Ronni Sen DO Work Phone: [facility] 03-18-2025 14:48-0400 Respiratory rate 16 /min Dr. Ronni Sen DO Work Phone: [facility] 03-18-2025 14:48-0400 Systolic blood pressure 93 mm[Hg] Dr. Ronni Sen DO Work Phone: [facility] 01-22-2025 06:55-0400 Body height [address] Ronni Sen DO Work Phone: [facility] 01-22-2025 06:55-0400 Body mass index (BMI) [Ratio] 17.1 kg/m2 Dr. Ronni Sen DO Work Phone: [facility] 01-22-2025 06:55-0400 Body weight 49.[address] Ronni Sen DO Work Phone: [facility] 01-22-2025 06:55-0400 Diastolic blood pressure 62 mm[Hg] Dr. Ronni Sen DO Work Phone: [facility] 01-22-2025 06:55-0400 Heart rate 85 /min Dr. Ronni Sen DO Work Phone: [facility] 01-22-2025 06:55-0400 Respiratory rate 18 /min Dr. Ronni Sen DO Work Phone: [facility] 01-22-2025 06:55-0400 SaO2% (BldA) [Mass fraction] 95 % Dr. Ronni Sen DO Work Phone: [facility] 01-22-2025 06:55-0400 Systolic blood pressure 109 mm[Hg] Dr. Ronni Sen DO Work Phone: [facility] 01-20-2025 15:11-0400 Body temperature 98 [degF] Dr. Ronni Sen DO Work Phone: [facility] 01-20-2025 15:11-0400 Diastolic blood pressure 83 mm[Hg] Dr. Ronni Sen DO Work Phone: [facility] 01-20-2025 15:11-0400 Heart rate 90 /min Dr. Ronni Sen DO Work Phone: [facility] 01-20-2025 15:11-0400 Respiratory rate 16 /min Dr. Ronni Sen DO Work Phone: [facility] 01-20-2025 15:11-0400 SaO2% (BldA) [Mass fraction] 92 % Dr. Ronni Sen DO Work Phone: [facility] 01-20-2025 15:11-0400 Systolic blood pressure 127 mm[Hg] Dr. Ronni Sen DO Work Phone: [facility] 01-20-2025 11:48-0400 Body height [address] Ronni Sen DO Work Phone: [facility] 01-20-2025 11:48-0400 Body mass index (BMI) [Ratio] 17.5 kg/m2 Dr. Ronni Sen DO Work Phone: [facility] 01-20-2025 11:48-0400 Body weight 50.[address] Ronni Sen DO Work Phone: [facility] 12-05-2024 11:42-0400 Diastolic blood pressure 76 mm[Hg] Dr. Ronni Sen DO Work Phone: [facility] 12-05-2024 11:42-0400 Heart rate 77 /min Dr. Ronni Sen DO Work Phone: [facility] 12-05-2024 11:42-0400 Respiratory rate 16 /min Dr. Ronni Sen DO Work Phone: [facility] 12-05-2024 11:42-0400 SaO2% (BldA) [Mass fraction] 96 % Dr. Ronni Sen DO Work Phone: [facility] 12-05-2024 11:42-0400 Systolic blood pressure 118 mm[Hg] Dr. Ronni Sen DO Work Phone: [facility] 10-08-2024 11:18-0500 Body mass index (BMI) [Ratio] 16.9 kg/m2 Dr. Ronni Sen DO Work Phone: [facility] 10-08-2024 11:18-0500 Body temperature 98.5 [degF] Dr. Ronni Sen DO Work Phone: [facility] 10-08-2024 11:18-0500 Body weight 48.[address] Ronni Sen DO Work Phone: [facility] 10-08-2024 11:18-0500 Diastolic blood pressure 54 mm[Hg] Dr. Ronni Sen DO Work Phone: [facility] 10-08-2024 11:18-0500 Heart rate 75 /min Dr. Ronni Sen DO Work Phone: [facility] 10-08-2024 11:18-0500 Respiratory rate 16 /min Dr. Ronni Sen DO Work Phone: [facility] 10-08-2024 11:18-0500 SaO2% (BldA) [Mass fraction] 97 % Dr. Ronni Sen DO Work Phone: [facility] 10-08-2024 11:18-0500 Systolic blood pressure 108 mm[Hg] Dr. Ronni Sen DO Work Phone: [facility] 04-30-2023 14:36-0400 Body height 170.[address] Ronni Sen Work Phone: [facility] 04-30-2023 14:36-0400 Body mass index (BMI) [Ratio] 16.4 kg/m2 Dr. Ronni Sen Work Phone: [facility] 04-30-2023 14:36-0400 Body weight 47.[address] Ronni Sen Work Phone: [facility] 04-30-2023 14:36-0400 Diastolic blood pressure 60 mm[Hg] Dr. Ronni Sen Work Phone: [facility] 04-30-2023 14:36-0400 Heart rate 64 /min Dr. Ronni Sen Work Phone: [facility] 04-30-2023 14:36-0400 Respiratory rate 18 /min Dr. Ronni Sen Work Phone: [facility] 04-30-2023 14:36-0400 SaO2% (BldA) [Mass fraction] 95 % Dr. Ronni Sen Work Phone: [facility] 04-30-2023 14:36-0400 Systolic blood pressure 118 mm[Hg] Dr. Ronni Sen Work Phone: [facility] 03-07-2023 14:05-0400 Body height 170.[address] Ronni Sen Work Phone: [facility] 03-07-2023 14:05-0400 Body mass index (BMI) [Ratio] 16.2 kg/m2 Dr. Ronni Sen Work Phone: [facility] 03-07-2023 14:05-0400 Body temperature 98 [degF] Dr. Ronni Sen Work Phone: [facility] 03-07-2023 14:05-0400 Body weight 46.[address] Ronni Sen Work Phone: [facility] 03-07-2023 14:05-0400 Diastolic blood pressure 62 mm[Hg] Dr. Ronni Sen Work Phone: [facility] 03-07-2023 14:05-0400 Heart rate 62 /min Dr. Ronni Sen Work Phone: [facility] 03-07-2023 14:05-0400 Respiratory rate 16 /min Dr. Ronni Sen Work Phone: [facility] 03-07-2023 14:05-0400 SaO2% (BldA) [Mass fraction] 98 % Dr. Ronni Sen Work Phone: [facility] 03-07-2023 14:05-0400 Systolic blood pressure 108 mm[Hg] Dr. Ronni Sen Work Phone: [facility] 12-05-2022 15:00-0400 Body height 170.[address] Ronni Sen Work Phone: [facility] 12-05-2022 15:00-0400 Body mass index (BMI) [Ratio] 16.9 kg/m2 Dr. Ronni Sen Work Phone: [facility] 12-05-2022 15:00-0400 Body temperature 98.1 [degF] Dr. Ronni Sen Work Phone: [facility] 12-05-2022 15:00-0400 Body weight 48.[address] Ronni Sen Work Phone: [facility] 12-05-2022 15:00-0400 Diastolic blood pressure 60 mm[Hg] Dr. Ronni Sen Work Phone: [facility] 12-05-2022 15:00-0400 Heart rate 59 /min Dr. Ronni Sen Work Phone: [facility] 12-05-2022 15:00-0400 Respiratory rate 16 /min Dr. Ronni Sen Work Phone: [facility] 12-05-2022 15:00-0400 SaO2% (BldA) [Mass fraction] 96 % Dr. Ronni Sen Work Phone: [facility] 12-05-2022 15:00-0400 Systolic blood pressure 110 mm[Hg] Dr. Ronni Sen Work Phone: [facility] 10-25-2022 11:30-0500 Body mass index (BMI) [Ratio] 16.7 kg/m2 Dr. Ronni Sen Work Phone: [facility] 10-25-2022 11:30-0500 Body weight 48.[address] Ronni Sen Work Phone: [facility] 10-25-2022 11:30-0500 Diastolic blood pressure 60 mm[Hg] Dr. Ronni Sen Work Phone: [facility] 10-25-2022 11:30-0500 Heart rate 64 /min Dr. Ronni Sen Work Phone: [facility] 10-25-2022 11:30-0500 Respiratory rate 18 /min Dr. Ronni Sen Work Phone: [facility] 10-25-2022 11:30-0500 Systolic blood pressure 110 mm[Hg] Dr. Ronni Sen Work Phone: [facility] 08-15-2022 10:40-0500 Body temperature 97.6 [degF] Dr. Ronni Sen Work Phone: [facility] 08-15-2022 10:40-0500 Body weight 48.[address] Ronni Sen Work Phone: [facility] 08-15-2022 10:40-0500 Diastolic blood pressure 54 mm[Hg] Dr. Ronni Sen Work Phone: [facility] 08-15-2022 10:40-0500 Heart rate 57 /min Dr. Ronni Sen Work Phone: [facility] 08-15-2022 10:40-0500 Respiratory rate 16 /min Dr. Ronni Sen Work Phone: [facility] 08-15-2022 10:40-0500 SaO2% (BldA) [Mass fraction] 91 % Dr. Ronni Sen Work Phone: [facility] 08-15-2022 10:40-0500 Systolic blood pressure 102 mm[Hg] Dr. Ronni Sen Work Phone: [facility] 06-01-2022 13:14-0400 Body height 170.[address] Ronni Sen Work Phone: [facility] 01-17-2022 10:37-0400 Body height 170.[address] Ronni Sen Work Phone: [facility] Work Phone: 01-17-2022 10:37-0400 Body mass index (BMI) [Ratio] 16.6 kg/m2 Dr. Ronni Sen Work Phone: [facility] Work Phone: 01-17-2022 10:37-0400 Body temperature 98.1 [degF] Dr. Ronni Sen Work Phone: [facility] Work Phone: 01-17-2022 10:37-0400 Body weight 48.[address] Ronni Sen Work Phone: [facility] Work Phone: 01-17-2022 10:37-0400 Diastolic blood pressure 60 mm[Hg] Dr. Ronni Sen Work Phone: [facility] Work Phone: 01-17-2022 10:37-0400 Heart rate 47 /min Dr. Ronni Sen Work Phone: [facility] Work Phone: 01-17-2022 10:37-0400 Respiratory rate 14 /min Dr. Ronni Sen Work Phone: [facility] Work Phone: 01-17-2022 10:37-0400 SaO2% (BldA) [Mass fraction] 96 % Dr. Ronni Sen Work Phone: [facility] Work Phone: 01-17-2022 10:37-0400 Systolic blood pressure 108 mm[Hg] Dr. Ronni Sen Work Phone: [facility] Work Phone: 10-25-2021 13:17-0500 Body mass index (BMI) [Ratio] 16.6 kg/m2 Dr. Ronni Sen Work Phone: [facility] Work Phone: 10-25-2021 13:17-0500 Body temperature 96.6 [degF] Dr. Ronni Sen Work Phone: [facility] Work Phone: 10-25-2021 13:17-0500 Body weight 48.[address] Ronni Sen Work Phone: [facility] Work Phone: 10-25-2021 13:17-0500 Diastolic blood pressure 60 mm[Hg] Dr. Ronni Sen Work Phone: [facility] Work Phone: 10-25-2021 13:17-0500 Heart rate 70 /min Dr. Ronni Sen Work Phone: [facility] Work Phone: 10-25-2021 13:17-0500 Respiratory rate 16 /min Dr. Ronni Sen Work Phone: [facility] Work Phone: 10-25-2021 13:17-0500 SaO2% (BldA) [Mass fraction] 98 % Dr. Ronni Sen Work Phone: [facility] Work Phone: 10-25-2021 13:17-0500 Systolic blood pressure 110 mm[Hg] Dr. Ronni Sen Work Phone: [facility] Work Phone: Encounters Encounter Date Encounter Type Care Provider Facility Start: 06-16-2025 End: 06-16-2025 ambulatory Ronni Sen Facility:[facility] Start: 06-04-2025 End: 06-04-2025 Patient encounter procedure Soraya ALMANZA -[facility] Work Phone: Start: 06-04-2025 End: 06-04-[address] Ronni Sen DO Work Phone: -[facility] Start: 04-22-2025 End: 04-22-[address] Ronni Sen DO Work Phone: -[facility] Start: 04-22-2025 End: 04-22-[address] Ronni Johnson DO -[facility] Work Phone: Start: 04-22-2025 End: 04-22-2025 Patient encounter procedure Soraya ALMANZA -[facility] Work Phone: Start: 04-22-2025 End: 04-22-[address] Ronni Sen DO Work Phone: -[facility] Start: 04-22-2025 End: 04-22-2025 ambulatory Soraya ALMANZA Facility:[facility] Start: 04-10-2025 End: 04-13-2025 Evaluation and management of inpatient UMANG LUTHER RASHEEDA [facility] Start: 03-18-2025 End: 03-18-2025 Patient encounter procedure Soraya ALMANZA [facility] [facility] Work Phone: Start: 03-18-2025 End: 03-18-[address] Ronni Sen DO Work Phone: -[facility] Start: 03-03-2025 ambulatory Jasper Julian Facility:[facility] Start: 03-03-2025 Non-patient / Non-visit Dr. Fiorella LUTHER -[facility] Start: 03-03-2025 End: 03-03-[address] Ronni Sen DO Work Phone: -Cardiovascular Services Start: 03-03-2025 End: 03-03-2025 Patient encounter procedure Soraya ALMANZA -Cardiovascular Services Work Phone: Start: 03-03-2025 End: 03-03-2025 ambulatory Ronni Sen Facility:[facility] Start: 01-22-2025 End: 01-22-2025 Patient encounter procedure Soraya ALMANZA -[facility] Work Phone: Start: 01-22-2025 End: 01-22-2025 ambulatory Ronni Sen Facility:[facility] Start: 01-20-2025 End: 01-20-2025 Emergency department patient visit Dr. Ronni Sen DO Work Phone: -Emergency Department Work Phone: Start: 12-05-2024 End: 12-05-[address] Goyo Díaz MD -[facility] Work Phone: Start: 12-05-2024 End: 12-05-2024 ambulatory Ronni Sen Facility:[facility] Start: 10-08-2024 End: 10-08-[address] Ronni Johnson DO -[facility] Work Phone: Start: 10-08-2024 End: 10-08-2024 ambulatory Ronni Sen Facility:[facility] Start: 09-15-2024 End: 09-15-2024 ambulatory Ronni Sen Facility:[facility] Start: 07-09-2024 End: 07-09-2024 ambulatory Ronni Sen Facility:[facility] Start: 07-09-2024 End: 07-09-2024 ambulatory Ronni Sen Facility:[facility] Start: 05-24-2023 End: 05-24-[address] Ronni Sen Work Phone: [facility] Work Phone: Start: 05-23-2023 Non-patient / Non-visit Dr. Parker Work Phone: [facility] Work Phone: Start: 05-21-2023 Non-patient / Non-visit Dr. Parker Work Phone: [facility] Start: 05-21-2023 End: 05-21-[address] Ronni Sen Work Phone: [facility] Work Phone: Start: 05-21-2023 End: 05-21-[address] [facility] Start: 04-30-2023 End: 04-30-[address] Ronni Sen Work Phone: [facility] Work Phone: Start: 03-07-2023 End: 03-07-[address] Ronni Sen Work Phone: [facility] Work Phone: Start: 03-07-2023 End: 03-07-[address] Ronni Sen Work Phone: [facility] Work Phone: Start: 02-14-2023 End: 02-14-[address] Ronni Sen Work Phone: [facility] Work Phone: Start: 01-10-2023 End: 01-10-[address] Ronni Sen Work Phone: [facility] Work Phone: Start: 12-05-2022 End: 12-05-[address] Ronni Sen Work Phone: [facility] Work Phone: Start: 12-05-2022 End: 12-05-[address] Ronni Sen Work Phone: [facility] Start: 10-25-2022 End: 10-25-[address] Ronni Sen Work Phone: [facility] Start: 10-25-2022 End: 10-25-[address] Ronni Sen Work Phone: [facility] Start: 09-21-2022 End: 09-21-[address] Ronni Sen Work Phone: [facility] Start: 09-05-2022 End: 09-05-[address] Ronni Sen Work Phone: [facility] Work Phone: Start: 09-05-2022 End: 09-05-[address] Ronni Sen Work Phone: [facility] Start: 08-15-2022 End: 08-15-[address] Ronni Sen Work Phone: [facility] Start: 07-14-2022 End: 07-14-[address] Ronni Sen Work Phone: [facility] Start: 06-01-2022 End: 06-01-[address] Ronni Sen Work Phone: [facility] Start: 01-17-2022 End: 01-17-[address] Ronni Sen Work Phone: [facility] Start: 10-25-2021 End: 10-25-[address] Ronni Sen Work Phone: [facility] Start: 10-01-2021 End: 10-01-2021 Emergency department patient visit Dr. Ronni Sen Work Phone: [facility]-Emergency Department Start: 05-16-2018 End: 05-17-2018 Patient encounter LUCY WRIGHT Facility:[facility] Start: 05-16-2018 End: 05-17-2018 Patient encounter LUCY WRIGHT Facility:[facility] Start: 02-20-2018 End: 02-21-2018 Patient encounter LUCY WRIGHT Facility:[facility] Procedures Date Procedure Procedure Detail Performing Clinician Start: 04-22-2025 X-ray of chest, PA a nd lateral views Dr. Ronni Sen DO Work Phone: Start: 04-10-2025 Urinalysis UMANG VANESSA Comment on above: Result Comment: URIN ALYSIS Performed By: #### 2 [id number] #### Eros [facility],[address] [place] [address] Start: 01-20-2025 X-ray of chest, PA a [...] Detail Author Start: 04-28-2025 Continuous pulse oximetry [facility] Start: 04-22-2025 X-ray of chest, PA a nd lateral views Chest PA and Lateral [facility] Start: 04-22-2025 XR Chest PA and Lateral [facility] Start: 01-20-2025 End: 01-20-2025 [facility] Start: 01-20-2025 [facility] Start: 08-15-2022 Patient referral [facility] Work Phone: Patient Education ED CHF Left Si de ED Dyspnea [facility] Work Phone: Patient referral [facility] Work Phone: Troponin T.cardiac [Mass/volume] in Serum or Plasma by High sensitivity method [facility] Payers Date Payer Category Payer Self-pay [id number] 2024 Medicare [id number] 2024 Unknown [id number] 2018 Medicare [id number] 1940 Unknown [id number] 2.16.8 [id number] Unknown [id number] Unknown [id number] 2.16.8 [id number] Unknown [id number] 2.16.8 40.1.588164.3.579.2.462 Unknown [id number] 2.16.8 40.1.865775.3.579.2.462 Unknown [id number] 2.16.8 40.1.488695.3.579.2.462 Unknown [id number] 2.16.8 40.1.148030.3.579.2.462 Unknown [id number] 2.16.8 40.1.970901.3.579.2.462 Unknown [id number] 2.16.8 40.1.584973.3.579.2.462 Unknown [id number] 2.16.8 40.1.291681.3.579.2.462 Unknown [id number] 2.16.8 40.1.356327.3.579.2.462 Unknown [id number] 2.16.8 40.1.351514.3.579.2.462 Unknown [id number] 2.16.8 40.1.347779.3.579.2.462 Unknown [id number] 2.16.8 40.1.713852.3.579.2.462 Unknown [id number] 2.16.8 40.1.339643.3.579.2.462 Unknown [id number] 2.16.8 40.1.309441.3.579.2.462 Unknown [id number] 2.16.8 40.1.705325.3.579.2.462 Unknown [id number] 2.16.8 40.1.111002.3.579.2.462 Social History Date Type Detail Facility Start: 01-17-2022 End: 05-24-2023 Tobacco smoking status NHIS Unknown if ever smoked [facility] Start: 07-28-2019 None [facility] Start: 07-28-2019 Spouse/ Signif icant Other [facility] Start: 07-28-2019 Non-smoker [facility] Start: 1940 Sex Assigned At Female [facility] Start: 01-20-2025 Tobacco smoking status NHIS Never smoked tobacco (finding) [facility] Sex Female [facility] Clinical Notes 09-28-2021 to 04-22-2025 Note Date & Type Note Facility 04-22-2025 Radiology Diagnostic study note [facility] Imaging Services [address] [place] [address] Chest PA and Lateral MR#: [id number] Acct: [id number] Name: MARIBEL SIMPSON Rep #: [id number] : 1940 From: Iron Bajwa MD PCP: Dr. Ronni Sen DO Status: RE G CLI Study:Chest PA and Lateral Date of Exam: 04/22/25 Exam# [id number] Ordering Dr: Soraya Winn PA PROCEDURE: CHEST [...] size. Likely pulmonary arterial hypertension. Reading Location: [id number] CC: Dr. Ronni Sen DO; ARCHIE Thomas ~ Unload Associate: Signed [facility] 04-14-2025 Note [facility] PROGRESS NOTE NAME ACCOUNT SEX AGE ADMIT DISCHARGE PT MED. RECORD# NUMBER DATE DATE TYPE CALVIN [id number] F 85 04/10/25 1 MARIBEL [id number] ROOM: 302MO DATE OF : 1940 DICTATING [...] Jennifer Rodriguez MD 04/12/25 13:08 JOB #: [id number] Transcribed By: merry 04/12/25 19:15 Electronically signed by: E-Sign: JENNIFER RODRIGUEZ MD 04/14/25 09:49 Page 1 of 1 MARIBEL SIMPSON Progress Note [facility] 03-18-2025 Evaluation note Diagnosis Onset Date [...] Pulmonary hypertension chronic O[facility] 2024 10:10am [facility] Work Phone: 1(446) 219-377705-22-2025 Evaluation note* Diagnosis Onset Date Resolution Status [...] 22, 2025 9:21am Pulmonary hypertension chronic [facility] 2024 9:21am [facility] Work Phone: 1(285) 796-707405-22-2025 Evaluation note* Diagnosis Onset Date Resolution Status [...] April 22, 2025 9:21am Pulmonary hypertension chronic [facility] 2024 9:21am Chronic back pain chronic April 22, 2025 11:13am [facility] Work Phone: 1(408) 737-156505-22-2025 Evaluation note* Diagnosis Onset Date Resolution Status [...] April 22, 2025 9:21am Pulmonary hypertension chronic [facility] 2024 9:21am (HFpEF) heart failure with preserved ejection fraction acute 2024 11:13am Nocturnal hypoxia acute April 22, 2025 11:13am Chronic back pain chronic April 22, 2025 11:13am [facility] Work Phone: 1(135) 522-505605-20-2025 Discharge summary [facility] Medical Records Department [address] [place] [id number] Emergency Department Summary 01/20/25 MR#: [id number] Acct: [id number] Name: MARIBEL SIMPSON Rep #:[id number] : 1940 84 From: Laverne Francois PCP: [...] Denies any fever. Had the flu around [facility] but thatwas a month ago. Did [...] did help her right sided chest discomfort. [facility] Medical History (HFpEF) heart failure with preserved [...] % (Auto) 68.5 Lymph % (Auto) 20.3 Daniels % (Auto) 8.5 Eos % (Auto) 1.4 [...] atelectasisworse on the right side. Reading Location: [place] [address] Rhythm Strip Rhythm Strip: A-fib Rate: 93 Ectopy: None EKG Initial EKG: Attestation: I personally reviewed and interpreted this EKG as follows: Interpretation: Atrial Fibrillation Comments: Atrial fibrillation rate of 93 bpm Normal axis Normal intervals Normal ST segments Compared to prior EKG on 12/05/2024?no significant change Prior EKG tracings: available for review Prior: Unchanged Management Discussion w/another healthcare provider: [employer] (cardiology ) Discharge Plan Triage Chief Complaint: [...] your daily 20 mg also. Print Language: Ukrainian Disposition Disposition: Home, Self Care What to do if you have Problems For any increased pain, shortness of breath, bleeding, nausea or vomiting, chestpain, or any unexpected problems, contact your Primary Care Provider. Call [facility] ([phone]) or report tothe closest Emergency Room. Call 911 if necessary. 01/20/25 1506 Cosigner Signature (if applicable): CC: Dr. Ronni Sen DO ~ Signed [facility]05-20-2025 Radiology Diagnostic study note [facility] Imaging Services [address], [place] [address] Chest PA and Lateral MR#: [id number] Acct: [id number] Name: MARIBEL SIMPSON Rep #: [id number] : 1940 F 84 From: Sony Araujo MD PCP: Dr. Ronni Sen DO Status: RE G ER Study:Chest PA and Lateral Date of Exam: 01/20/25 Exam# [id number] Ordering Dr: Geovany Elena DO PROCEDURE: CHEST [...] atelectasisworse on the right side. Reading Location: [place] [address] CC: Dr. Laverne Elena DO; Dr. Ronni Sen DO ~ Unload Associate: Signed [facility]05-20-2025 Discharge summary Author [facility]ne [facility] Note Date/Time January 20, 2025 3:06p m [facility] Medical Records Department [address] [place] [address] Emergency Department Summary 01/20/25 MR#: [id number] Acct: [id number] Name: MARIBEL SIMPSON Rep #:[id number] : 1940 84 From: Laverne Francois PCP: [...] Denies any fever. Had the flu around [facility] but thatwas a month ago. Did [...] did help her right sided chest discomfort. [facility] Medical History (HFpEF) heart failure with preserved [...] % (Auto) 68.5 Lymph % (Auto) 20.3 Daniels % (Auto) 8.5 Eos % (Auto) 1.4 [...] atelectasisworse on the right side. Reading Location: [facility] Rhythm Strip Rhythm Strip: A-fib Rate: 93 Ectopy: None EKG Initial EKG: Attestation: I personally reviewed and interpreted this EKG as follows: Interpretation: Atrial Fibrillation Comments: Atrial fibrillation rate of 93 bpm Normal axis Normal intervals Normal ST segments Compared to prior EKG on 12/05/2024?no significant change Prior EKG tracings: available for review Prior: Unchanged Management Discussion w/another healthcare provider: [employer] (cardiology ) Discharge Plan Triage Chief Complaint: [...] your daily 20 mg also. Print Language: Ukrainian Disposition Disposition: Home, Self Care What to do if you have Problems For any increased pain, shortness of breath, bleeding, nausea or vomiting, chestpain, or any unexpected problems, contact your Primary Care Provider. Call [facility] ([phone]) or report to the closest Emergency Room. Call 911 if necessary. 01/20/25 9042 <Electronically signed by Laverne Elena DO> Cosigner Signature (if applicable): CC: Dr. Ronni Sen DO ~ Signed [facility] Work Phone: 1([phone]) 201-548304-04-2025 Evaluation note* Diagnosis Onset Date Resolution Status Admit Date Persistent atrial fibrillation chron ic December 05, 2024 11:07am (HFpEF) heart failure with preserved ejection fraction acute January 22, 2025 1:43pm Mitral insufficiency chronic January 22, 2025 1:43pm Persistent atrial fibrillation chron ic January 22, 2025 1:43pm [facility] Work Phone: [phone]) [phone] Evaluation note* Diagnosis Onset Date Resolution Status [...] fibrillation chron ic March 18, 2025 2:40pm [facility] Work Phone: 1(113) [phone] Evaluation note* Diagnosis Onset Date Resolution Status [...] fibrillation chron ic December 05, 2024 11:07am [facility] Work Phone: [phone]) [phone] NoteHNO ID: [id number] Author: Kris Child MD Service: ? Author [...] all of its relevant components. Kris Child, [facility] Diagnosis Onset Date Resolution Status Seborrheic keratoses acute Anxiety and depression chron ic Poor appetite chronic Hyponatremia acute Anxiety and depression chron ic Chronic systolic (congestive) heart failure chronic Hypothyroidism chronic [facility] Work Phone: Evaluation note* Diagnosis Onset Date Resolution Status Vitamin B12 deficiency acute Vitamin B12 deficiency acute Mass of buttock acute Vitamin B12 deficiency acute Chronic dermatitis chronic Osteoarthritis of knee chron [facility] Work Phone: Evaluation note* Diagnosis Onset Date [...] ic Hypothyroidism chronic Persistent atrial fibrillation chronic [facility] Work Phone: Evaluation note* Diagnosis Onset Date Resolution Status Cerumen impaction acute UTI (urinary tract infection) acute Vitamin B12 deficiency acute Anxiety and depression chron ic Hypothyroidism chronic Persistent atrial fibrillation chronic Hyponatremia acute Vitamin B12 deficiency acute Anxiety and depression chron ic Hypothyroidism chronic Nonrheumatic mitral (valve) prolapse chronic Persistent atrial fibrillation chronic Poor appetite chronic [facility] Work Phone: Evaluation note* Diagnosis Onset Date Resolution Status Hyponatremia acute Vitamin B12 deficiency acute Anxiety and depression chron ic Hypothyroidism chronic Nonrheumatic mitral (valve) prolapse chronic Persistent atrial fibrillation chronic Poor appetite chronic Chronic systolic (congestive) heart failure chronic Nonrheumatic mitral (valve) insufficiency chronic Persistent atrial fibrillation chronic Pulmonary hypertension chron [facility] Work Phone: Hospital Discharge instructions Additional Instructions Please return to the ER if you feel you are worsening. Follow-up with cardiology on at 2 PM as we discussed. Take a total of 40 mg of Lasix daily with your first dose this evening. You do not need to take your daily 20 mg also.[facility] Work Phone: Reason for referral (narrative)No reason for referral information [facility] Work Phone: Summary Purpose Family History No Family History Records Found Relationship Condition Age at Onset Recorded Date/T bella grandmother Malignant neoplasm of colon Unknown grandfather Myocardial infarction Unknown mother Cardiac disease Unknown Myocardial infarction Unknown Parkinson's disease Unknown Advance Directives No Advanced Directives Records Found Advance Directive Response Recorded Date/ Time Living Will Yes July 30 5:11pm Power of Borough Coordinator Yes July 30, 2019 5:11pm Advance Directive Response Recorded Date/ Time Living Will Yes June 01, 2022 12:14pm Power of Borough Coordinator Yes May 12:14pm Advance Directive Response Recorded Date/ Time Living Will Yes June 01, 2022 1:14pm Power of Borough Coordinator Yes May 1:14pm Advance Directive Response Recorded Date/ Time Do you have a Healthcare Power of Borough Coordinator? 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 Cataract extraction withIOL right eye 2. 3. 4. 5. Surgeon: Fab Resident/Fellow/Other Front Man: None Estimated Blood Loss (mL): none Specimen: [...] 7am SOB January 20, 2025 11:48 am [facility] ER 20 HTN/PALPS January 22, 2025 1:4 [...] 7am SOB January 20, 2025 11:48 am [facility] ER 20 HTN/PALPS January 22, 2025 1:4 [...] Date SOB January 20, 2025 11:48 am [facility] ER 01/20 HTN/PALPS January 22, 2025 1:4 [...] Date SOB January 20, 2025 11:48 am [facility] ER 01/20 HTN/PALPS January 22, 2025 1:4 [...] section and content) DATE CREATED AUTHOR 06/12/2018 [facility] ([place]) DATE CREATED AUTHOR AUTHOR'S ORGANIZ ATION 06/23/2019 [facility] DATE CREATED AUTHOR AUTHOR'S ORGANIZ ATION 10/26/2021 [facility] DATE CREATED AUTHOR AUTHOR'S ORGANIZ ATION 04/30/2025 [facility] DATE CREATED AUTHOR AUTHOR'S ORGANIZ ATION 06/18/2025 [facility] Goals (unrecognized section and content) Goals may [...] DO Primary Care Provider Active Julio Kenny WELDING MACHINE ASSEMBLER, WELDING MACHINE ASSEMBLER-C Attending Provider Active Team Status: Inactive Member [...] BE BASED ON THE PRIMARY CLINICAL RECORDS. [employer] provides no warranty or guarantee of the accuracy or completeness of information in this document.
[2025-06-20] MEDS: 0.9% Saline Lock 10 ML Syringe IV ×2 (06:21→21:18)
[2025-06-20 07:14] LABS: Hematocrit 37.9 % (37-47); Hemoglobin 13.1 g/dL (12.0-15.0); Immature Granulocytes Count 0.020 X10^3/uL (0.0-0.0); Mean Corp Hgb Conc 34.6 g/dL (32-36); Mean Corpuscular Volume 91.3 fL (81-99); Mean Platelet Vol. 10.5 fl (6.2-12.0); NRBC Flagged by Analyzer 0 % (0-5); Platelet Count 245 K/mm3 (150-450); RBC Distribution Width CV 14.4 % (11.6-14.6); RBC Distribution Width SD 48.1 fl (35.1-43.9); Red Blood Count 4.15 M/mm3 (4.2-5.4); White Blood Count 5.5 K/mm3 (4.4-11.0)
[2025-06-20 07:28] LABS: Anion Gap 11 (5-15); BUN 23 mg/dL (4-19); BUN/Creat Ratio 28.7 RATIO (10-20); Calcium,Total 8.8 mg/dL (7.6-11.0); Carbon Dioxide 24.3 mmol/L (21.0-32.0); Chloride 90 mmol/L (98-108); Estimated Creatinine Clearance 40.13 ml/min (50-250); Glucose 119 mg/dL (70-99); Potassium 4.9 mmol/L (3.3-5.1)
--- NOTE | 2025-06-20 07:55 | PN.HOSP_ITS ---
Objective Data Objective Data Vital Signs: Vital Signs Temp Pulse Resp BP Pulse Ox O2 Del Method 97.8 F 96 18 125/81 H 93 Room Air 06/20/25 00:00 06/20/25 02:30 06/20/25 01:00 06/20/25 01:00 06/20/25 06:34 06/20/25 06:34 Oxygen Delivery Method Room Air Weight: 106 lb 7.732 oz Body Mass Index (BMI) 16.7 Intake & Output: Intake and Output for Last 24 Hours 06/18/25 06/19/25 06/20/25 23:59 23:59 23:59 Intake Total 220 / 220 Balance 220 / 220 Lab / Micro Data 06/20/25 06:53 06/20/25 06:53 Labs: Laboratory Results - last 24 hr 06/18/25 22:20: Troponin T Hi Sens 2 Hr 8 06/19/25 19:50: WBC 6.9, RBC 4.33, Hgb 13.4, Hct 40.3, MCV 93.1, MCH 30.9, MCHC 33.3, RDW Std Deviation 48.0 H, RDW Coeff of Karis 14.3, Plt Count 250, MPV 10.8, Immature Gran % (Auto) 0.400, Neut % (Auto) 73.0 H, Lymph % (Auto) 16.5 L, Porter % (Auto) 8.7, Eos % (Auto) 0.7, Baso % (Auto) 0.7, Absolute Neuts (auto) 5.0, Absolute Lymphs (auto) 1.14, Nucleated RBC % 0, Sodium 125 L, Potassium 4.4, C hloride 89 L, Carbon Dioxide 24.0, Anion Gap 12, BUN 25 H, Creatinine 0.82, E stim Creat Clear Calc 40.05 L, Est GFR (MDRD) Non-Af 71, BUN/Creatinine Ratio 30.9 H, Glucose 111 H, Calcium 9.1, Troponin T High Sens 8 D, NT pro BNP II 6029 H 06/20/25 00:06: Troponin T Hi Sens 4Hr 10 06/20/25 06:53: WBC 5.5, RBC 4.15 L, Hgb 13.1, Hct 37.9, MCV 91.3, MCH 31.6, MCHC 34.6, RDW Std Deviation 48.1 H, RDW Coeff of Karis 14.4, Plt Count 245, MPV 10.5, Immature Gran % (Auto) 0.400, Neut % (Auto) 67.3, Lymph % (Auto) 19.2, M brennan % (Auto) 11.8 H, Eos % (Auto) 0.4, Baso % (Auto) 0.9, Absolute Neuts (auto) 3.7, Absolute Lymphs (auto) 1.06, Nucleated RBC % 0, Sodium 126 L, Potassium 4.9, Chloride 90 L, Carbon Dioxide 24.3, Anion Gap 11, BUN 23 H, Creatinine 0.81, Estim Creat Clear Calc 40.13 L, Est GFR (MDRD) Non-Af 72, BUN/Creatinine Ratio 28.7 H, Glucose 119 H, Calcium 8.8 Radiography Diagnostic Testing: Radiology Impression Chest X-Ray 06/19/25 22:20 IMPRESSION: Small bibasilar pleural effusions/atelectasis, similar to prior exam. Reading Location: [facility] Physical Exam Narrative Seen and examined. She feels much better. No shortness of breath/trouble breathing. Leg swelling has improved. No chest pain. She was admitted with dyspnea on exertion and intermittent chest discomfort Physical exam General: Alert, Oriented x3, Cooperative. BMI 16.7 kg/m? HEENT: Atraumatic, PERRLA, EOMI, Normocephalic. Oral: No Gingival or Mucosal Lesions/ Ulcerations Neck: Supple, No JVD, Negative Carotid Bruits Chest wall/Lungs: Air entry diminished in bilateral lung bases. No crepitation/rhonchi Cardiovascular: Irregular rate and rhythm. Systolic and diastolic murmur Abdomen: Bowel Sounds Present, Soft, Non Tender, Non-Distended : No dysuria. No renal angle tenderness. No suprapubic tenderness. Extremities: No edema, Capillary Refill Less than 3 Seconds Skin: No rashes, No breakdown Musculoskeletal: No Tenderness to Palpation of Joints or Extremities Neurological: Cranial nerves II-XII grossly intact, DTR 2+/4. No acute focal neurological deficit. Psych/Mental Status: Flat affect Assessment & Plan Assessment/Plan (1) Acute exacerbation of CHF (congestive heart failure): (2) Atrial fibrillation, chronic: PLAN: Plan 85-year-old female admitted with not feeling well for past 2 weeks, dyspnea, nausea and dizziness. Patient was seen by Soraya Bagley, continued furosemide 20 mg twice daily. Patient not able to walk to the kitchen about 20 feet tomorrow. Intermittent chest discomfort with activity and dyspnea on exertion and orthopnea. PCP saw several days ago increase metoprolol from 25 to 50 mg #Acute exacerbation of heart failure with preserved EF * Was admitted to PCU * proBNP elevated at 6029. Chest x-ray showed small bibasilar pleural effusion and atelectasis similar to prior exam. 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 * Was started on IV Lasix 40 mg twice daily. Heart failure core measures including intake and output, fluid restriction less than 1500 mL, daily weight monitoring, kidney and electrolytes monitoring. * 2D echo from 03/03/2025 showed normal left ventricular size and systolic function with EF of 60% and 2+ mitral valve insufficiency with severely enlarged left atrium and anterior leaflet mitral valve prolapse. 06/20: Tremendous improvement in shortness of breath. No chest discomfort. Furosemide changed to 40 mg twice daily from tomorrow. #Atrial fibrillation: * This is chronic. On metoprolol. * Says she used to be on Eliquis 2.5 mg twice daily but this was discontinued by her PCP due to concerns about fall and also patient seen bedside Eliquis just did not make her feel good. * remains in afib. * #GERD: On PPI #Hyponatremia: * Sodium is 125. Was previously normal with at 135. * Fluid overload may be playing a role. Should improve with diuresis. Will monitor closely. * If it does not improve we will do further workup with serum osmolality and urine osmolality as well as urine sodium #DVT prophylaxis: lovenox Code status: full code * Patient and daughters counseled extensively about different types of CODE STATUS including full code, DNR CCA and DNR CCA. * Patient elects to be full code. Laboratory Results 06/18/25 22:20: Troponin T Hi Sens 2 Hr 8 06/19/25 19:50: WBC 6.9, RBC 4.33, Hgb 13.4, Hct 40.3, MCV 93.1, MCH 30.9, MCHC 33.3, RDW Std Deviation 48.0 H, RDW Coeff of Karis 14.3, Plt Count 250, MPV 10.8, Immature Gran % (Auto) 0.400, Neut % (Auto) 73.0 H, Lymph % (Auto) 16.5 L, Porter % (Auto) 8.7, Eos % (Auto) 0.7, Baso % (Auto) 0.7, Absolute Neuts (auto) 5.0, Absolute Lymphs (auto) 1.14, Nucleated RBC % 0, Sodium 125 L, Potassium 4.4, C hloride 89 L, Carbon Dioxide 24.0, Anion Gap 12, BUN 25 H, Creatinine 0.82, E stim Creat Clear Calc 40.05 L, Est GFR (MDRD) Non-Af 71, BUN/Creatinine Ratio 30.9 H, Glucose 111 H, Calcium 9.1, Troponin T High Sens 8 D, NT pro BNP II 6029 H 06/20/25 00:06: Troponin T Hi Sens 4Hr 10 06/20/25 06:53: WBC 5.5, RBC 4.15 L, Hgb 13.1, Hct 37.9, MCV 91.3, MCH 31.6, MCHC 34.6, RDW Std Deviation 48.1 H, RDW Coeff of Karis 14.4, Plt Count 245, MPV 10.5, Immature Gran % (Auto) 0.400, Neut % (Auto) 67.3, Lymph % (Auto) 19.2, M brennan % (Auto) 11.8 H, Eos % (Auto) 0.4, Baso % (Auto) 0.9, Absolute Neuts (auto) 3.7, Absolute Lymphs (auto) 1.06, Nucleated RBC % 0, Sodium 126 L, Potassium 4.9, Chloride 90 L, Carbon Dioxide 24.3, Anion Gap 11, BUN 23 H, Creatinine 0.81, Estim Creat Clear Calc 40.13 L, Est GFR (MDRD) Non-Af 72, BUN/Creatinine Ratio 28.7 H, Glucose 119 H, Calcium 8.8 Charges/Coding Visit Charges Inpatient E&M: 78806 Subs Hosp L2
[2025-06-20] MEDS: Potassium Chloride Oral Tablet 20 MEQ PO ×2 (09:05→18:36)
[2025-06-20] MEDS: Magnesium Chloride 64 MG Delay Rel.Tablet PO ×2 (09:42→09:43)
[2025-06-20] MEDS: Zinc Sulfate 50 mg zinc (220 mg) ORAL capsule PO (09:43)
[2025-06-20] MEDS: Cholecalciferol (VIT D3) 25 MCG TABLET (1,000 UNITS) PO (09:43)
--- NOTE | 2025-06-20 12:03 | CASEMGMT ---
Addendum entered by Leslie Durbin 06/20/25 13:23: Social Work SW checked w/physician, pt may be ready for d/c on Sunday. SW called [facility], let them know she may be returning tomorrow. SW asked for the fax number so d/c instructions can be faxed. SW also faxed them updates. SW spoke w/pt again, daughters Keyla and Alysha visiting. Pt and daughters confirm daughter Ofelia would take pt back tomorrow. Also [facility] would be the preferred pharmacy should medications be needed at d/c. SW updated the pharmacy in [facility]. Green sheet placed on chart in anticipation of discharge tomorrow back to [facility]. Also, POA/LW are on file, daughter Ofelia is HCPOA. SALVATORE Sharma Original Note: Social Work SW met w/pt in room, confirmed she is from [facility]. Pt plans to return at discharge. Pt states lives there w/her . She takes care of her own ADLs, uses no DME, takes her own medications. They do help w/cooking and cleaning, and her daughters transport her to where she needs to go. Pt has not completed POA papers in the past. SW will follow up w/[facility] to see if pt can return when ready. SALVATORE Sharma
[2025-06-21 02:57] VITALS: BMI 16.5
[2025-06-21 03:14] VITALS: BP 103/80; PULSE 70; RESP 14; TEMP 36.5; O2SAT 94
[2025-06-21 06:20] LABS: Hematocrit 38.0 % (37-47); Hemoglobin 12.9 g/dL (12.0-15.0); Immature Granulocytes Count 0.020 X10^3/uL (0.0-0.0); Mean Corp Hgb Conc 33.9 g/dL (32-36); Mean Corpuscular Volume 92.0 fL (81-99); Mean Platelet Vol. 10.6 fl (6.2-12.0); NRBC Flagged by Analyzer 0 % (0-5); Platelet Count 225 K/mm3 (150-450); RBC Distribution Width CV 14.5 % (11.6-14.6); RBC Distribution Width SD 48.9 fl (35.1-43.9); Red Blood Count 4.13 M/mm3 (4.2-5.4); White Blood Count 6.0 K/mm3 (4.4-11.0)
[2025-06-21 06:28] VITALS: O2SAT 95
[2025-06-21 07:03] LABS: Anion Gap 8 (5-15); BUN 24 mg/dL (4-19); BUN/Creat Ratio 26.9 RATIO (10-20); Calcium,Total 8.6 mg/dL (7.6-11.0); Carbon Dioxide 26.2 mmol/L (21.0-32.0); Chloride 91 mmol/L (98-108); Estimated Creatinine Clearance 37.13 ml/min (50-250); Glucose 86 mg/dL (70-99); Potassium 4.8 mmol/L (3.3-5.1)
[2025-06-21] MEDS: Potassium Chloride Oral Tablet 20 MEQ PO (09:28)
[2025-06-21 09:30] VITALS: BP 122/83; PULSE 94
[2025-06-21] MEDS: Zinc Sulfate 50 mg zinc (220 mg) ORAL capsule PO (09:32)
[2025-06-21] MEDS: Cholecalciferol (VIT D3) 25 MCG TABLET (1,000 UNITS) PO (09:32)
[2025-06-21 09:45] VITALS: BP 122/84; PULSE 94; RESP 18; TEMP 36.6; O2SAT 94
--- NOTE | 2025-06-21 09:57 | DCINST_ITS ---
Discharge Instructions DC O2, CPAP, BIPAP needs Home O2 Discharge instructions: No Dressing / Incision Discharge Activity: Return to Normal Activity Weight Bearing Status: Weight bearing as tolerated Dressing / Incision Call your doctor if you observe: Fever of 101 or Higher, Coldness, Increased Pain, Numbness or Tingling, Change in Color, Inability to urinate, Inability to have a bowel movement, Shortness of breath, Dizziness, Fainting spells, Swelling in the ankles, Chest pain, Prolonged hiccupping, Increased palpitations (irregular heartbeat) and Calf discomfort Follow Up Care When: IN 2 WEEKS Test Results: Test results from this visit will be discussed in further detail at your follow- up appointment, if applicable. Discharge Plan Admission Admit Date/Time: 06/20/25 00:42 Attending Provider: Otis Davis Primary Care Provider: Daljit Sen Consulting Providers: Arline Vasquez Discharge Orders/Prescriptions Prescriptions: New quetiapine 25 mg Tablet 50 mg PO QHS 30 Days Qty: 60 0RF sodium chloride 1,000 mg Tablet,Soluble 1,000 mg PO TID 14 Days Qty: 42 0RF Continued cholecalciferol (vitamin D3) 25 mcg (1,000 unit) tablet 25 mcg PO DAILY ascorbic acid (vitamin C) 500 mg tablet 250 mg PO DAILY psyllium husk [Daily Fiber] 0.4 gram capsule 0.4 g PO DAILY mecobalamin (vitamin B12) 500 mcg tablet,chewable 500 mcg PO DAILY (DME) oxygen See Rx Instructions .Route .MEDSUPPLY Qty: 1 0RF Rx Instructions: Nocturnal oxygen at 3 liters, per nasal canula fluoxetine [Prozac] 20 mg capsule 20 mg PO QDAY Qty: 90 1RF vitamin E (dl, acetate) 180 mg (400 unit) capsule 180 mg PO QDAY magnesium chloride 64 mg tablet,delayed release (DR/EC) 64 mg PO QDAY potassium chloride 10 mEq capsule, extended release 10 meq PO QDAY metoprolol tartrate 25 mg tablet 25 mg PO BID Qty: 180 3RF hydrocodone-acetaminophen 5-325 mg tablet 1 tab PO QHS PRN (Reason: pain) 30 Days Qty: 30 0RF food supplemt, lactose-reduced 0.08 gram-1.5 kcal/mL liquid 120 ml PO DAILY PRN (Reason: supp) polyethylene glycol 3350 [ClearLax] 17 gram/dose powder 17 g PO DAILY PRN (Reason: constipation) zinc acetate 50 mg (zinc) capsule 50 mg PO DAILY omeprazole 20 mg capsule,delayed release(DR/EC) 20 mg PO DAILY PRN (Reason: acid reflux) fluoxetine 10 mg capsule 20 mg PO DAILY furosemide 40 mg tablet 40 mg PO DAILY 30 Days Qty: 30 0RF Discontinued quetiapine 100 mg tablet 50 mg PO QHS Qty: 60 1RF Referrals / Follow Up: Daljit Sen DO [Primary Care Provider, Internal Medicine] Pearl Whitaker MD [Med Staff - Consulting, Nephrology] - Within 2 Weeks Disposition Disposition (needs filled in before D/C Order can be placed): Home, Self Care
--- NOTE | 2025-06-21 10:08 | DS.PCM_ITS ---
Providers Date of Admission: 06/20/25 Date of Discharge: 06/21/25 Primary Care Physician: Dr. Daljit Sen, DO Reason For Visit: ACUTE HFpEF Diagnosis Discharge Diagnosis (1) Acute exacerbation of CHF (congestive heart failure): Status: Chronic Code(s): I50.9 - Heart failure, unspecified (2) Atrial fibrillation, chronic: Status: Chronic Code(s): I48.20 - Chronic atrial fibrillation, unspecified Plan 85-year-old female admitted with not feeling well for past 2 weeks, dyspnea, nausea and dizziness. Patient was seen by Soraya Bagley, continued furosemide 20 mg twice daily. Patient not able to walk to the kitchen about 20 feet tomorrow. Intermittent chest discomfort with activity and dyspnea on exertion and orthopnea. PCP saw several days ago increase metoprolol from 25 to 50 mg #Acute exacerbation of heart failure with preserved EF * Was admitted to PCU * proBNP elevated at 6029. Chest x-ray showed small bibasilar pleural effusion and atelectasis similar to prior exam. * Her Lasix dose was recently changed from 40 mg daily to 20 mg twice daily by her flute grinder office. * Was started on IV Lasix 40 mg twice daily. Heart failure core measures including intake and output, fluid restriction less than 1500 mL, daily weight monitoring, kidney and electrolytes monitoring. * 2D echo from 03/03/2025 showed normal left ventricular size and systolic function with EF of 60% and 2+ mitral valve insufficiency with severely enlarged left atrium and anterior leaflet mitral valve prolapse. 06/20: Tremendous improvement in shortness of breath. No chest discomfort. Furosemide changed to 40 mg twice daily from tomorrow. 06/21: Shortness of breath is much better. Hemodynamically vitals are in normal range. Patient is discharged on 40 mg once daily. She is on potassium and magnesium supplement. #Atrial fibrillation: * This is chronic. On metoprolol. * Says she used to be on Eliquis 2.5 mg twice daily but this was discontinued by her PCP due to concerns about fall and also patient seen bedside Eliquis just did not make her feel good. * remains in afib. 06/21: Patient is still in A-fib. Telemetry reviewed #GERD: On PPI #Hyponatremia: * Sodium is 125. Was previously normal with at 135. * Fluid overload may be playing a role. Should improve with diuresis. Will monitor closely. * If it does not improve we will do further workup with serum osmolality and urine osmolality as well as urine sodium 06/21: Serum sodium is still 125. Discussed with the agency sales director, Dr. Whitaker. Advised sodium tablet 1 g 3 times daily for 2 weeks and then follow-up with him in 2 weeks. #DVT prophylaxis: lovenox Patient also on Seroquel and wanted 50 mg, 25 mg tablets x 2 prescription. She was not comfortable with 100 mg tablet. Prescription of Seroquel given for Code status: full code * Patient and daughters counseled extensively about different types of CODE STATUS including full code, DNR CCA and DNR CCA. * Patient elects to be full code. * Discharge medication reconciliation done. Discharge follow-up instructions completed. Discharge process discussed with the patient and all questions were answered to patient's satisfaction. Follow with PCP in 1 to 2 weeks Total time spent, exact 35 minutes on discharge meds reconciliation, examination, coordination of care with nurses and ancillary staff, review of imaging and blood test and discussion with the patient on follow-up instructions. Laboratory Results 06/18/25 22:20: Troponin T Hi Sens 2 Hr 8 06/19/25 19:50: WBC 6.9, RBC 4.33, Hgb 13.4, Hct 40.3, MCV 93.1, MCH 30.9, MCHC 33.3, RDW Std Deviation 48.0 H, RDW Coeff of Karis 14.3, Plt Count 250, MPV 10.8, Immature Gran % (Auto) 0.400, Neut % (Auto) 73.0 H, Lymph % (Auto) 16.5 L, [place] % (Auto) 8.7, Eos % (Auto) 0.7, Baso % (Auto) 0.7, Absolute Neuts (auto) 5.0, Absolute Lymphs (auto) 1.14, Nucleated RBC % 0, Sodium 125 L, Potassium 4.4, C hloride 89 L, Carbon Dioxide 24.0, Anion Gap 12, BUN 25 H, Creatinine 0.82, E stim Creat Clear Calc 40.05 L, Est GFR (MDRD) Non-Af 71, BUN/Creatinine Ratio 30.9 H, Glucose 111 H, Calcium 9.1, Troponin T High Sens 8 D, NT pro BNP II 6029 H 06/20/25 00:06: Troponin T Hi Sens 4Hr 10 06/20/25 06:53: WBC 5.5, RBC 4.15 L, Hgb 13.1, Hct 37.9, MCV 91.3, MCH 31.6, MCHC 34.6, RDW Std Deviation 48.1 H, RDW Coeff of Karis 14.4, Plt Count 245, MPV 10.5, Immature Gran % (Auto) 0.400, Neut % (Auto) 67.3, Lymph % (Auto) 19.2, M brennan % (Auto) 11.8 H, Eos % (Auto) 0.4, Baso % (Auto) 0.9, Absolute Neuts (auto) 3.7, Absolute Lymphs (auto) 1.06, Nucleated RBC % 0, Sodium 126 L, Potassium 4.9, Chloride 90 L, Carbon Dioxide 24.3, Anion Gap 11, BUN 23 H, Creatinine 0.81, Estim Creat Clear Calc 40.13 L, Est GFR (MDRD) Non-Af 72, BUN/Creatinine Ratio 28.7 H, Glucose 119 H, Calcium 8.8 Medications at Discharge Home Medications psyllium husk 0.4 gram capsule (Daily Fiber) 0.4 g PO DAILY 01/17/22 cholecalciferol (vitamin D3) 25 mcg (1,000 unit) tablet 25 mcg PO DAILY 03/13/22 food supplemt, lactose-reduced 0.08 gram-1.5 kcal/mL oral liquid 120 ml PO DAILY PRN supp 04/30/23 ascorbic acid (vitamin C) 500 mg tablet 250 mg PO DAILY 10/29/23 mecobalamin (vitamin B12) 500 mcg chewable tablet 500 mcg PO DAILY 12/11/23 polyethylene glycol 3350 17 gram/dose oral powder (ClearLax) 17 g PO DAILY PRN constipation 01/20/25 zinc acetate 50 mg (zinc) capsule 50 mg PO DAILY 01/20/25 omeprazole 20 mg capsule,delayed release 20 mg PO DAILY PRN acid reflux 01/22/25 magnesium chloride 64 mg (magnesium chloride) tablet,delayed release 64 mg PO QDAY 03/18/25 vitamin E (dl, acetate) 180 mg (400 unit) capsule 180 mg PO QDAY 03/18/25 fluoxetine 20 mg capsule (Prozac) 20 mg PO QDAY #90 caps 04/22/25 oxygen #1 ea 04/22/25 potassium chloride 10 mEq capsule,extended release 10 meq PO QDAY 04/22/25 hydrocodone-acetaminophen 5-325mg 5mg-325mg 1 tab PO QHS PRN pain 30 days #30 tabs 06/16/25 metoprolol tartrate 25 mg tablet 25 mg PO BID bp #180 tabs 06/16/25 fluoxetine 10 mg capsule 20 mg PO DAILY 06/19/25 furosemide 40 mg tablet 40 mg PO DAILY 30 days #30 tabs 06/21/25 quetiapine 25 mg tablet 50 mg (2 x 25 mg) PO QHS 30 days #60 tabs 06/21/25 sodium chloride 1,000 mg soluble tablet 1,000 mg PO TID 2 weeks #42 tabs 06/21/25 Physical Exam Narrative Seen and examined. Patient does not have any symptoms. Her symptoms of shortness of breath, leg swelling have improved. No chest pain/pressure. She was admitted with dyspnea on exertion and intermittent chest discomfort Physical exam General: Alert, Oriented x3, Cooperative. BMI 16.7 kg/m? HEENT: Atraumatic, PERRLA, EOMI, Normocephalic. Oral: No Gingival or Mucosal Lesions/ Ulcerations Neck: Supple, No JVD, Negative Carotid Bruits Chest wall/Lungs: Air entry diminished in bilateral lung bases. No crepitation/rhonchi Cardiovascular: Irregular rate and rhythm. Systolic and diastolic murmur Abdomen: Bowel Sounds Present, Soft, Non Tender, Non-Distended : No dysuria. No renal angle tenderness. No suprapubic tenderness. Extremities: No edema, Capillary Refill Less than 3 Seconds Skin: No rashes, No breakdown Musculoskeletal: No Tenderness to Palpation of Joints or Extremities Neurological: Cranial nerves II-XII grossly intact, DTR 2+/4. No acute focal neurological deficit. Psych/Mental Status: Flat affect Medical Records Data Medical Nutrition Assessment Dietitian: Malnutrition Criteria Met Start: 06/20/25 11:48 Freq: Status: Active Protocol: Document 06/20/25 11:48 SLA (Rec: 06/20/25 11:48 SLA [id number]) Nutrition Malnutrition Evidence of Yes Malnutrition Exists Evidenced By Suboptimal Energy Intake (Severe),Physical Changes ( Severe) Intake Problem Inadequate Oral Intake Etiology related to recent nausea and inability to gain wt Signs/Symptoms as evidenced by pt self report and wt hx 47.174 - 50.712 kg x 1 year w/ BMI <17 Status Active Problem Clinical Problem Altered Nutrient-Related Laboratory Values Etiology related to likely hyponatremia Signs/Symptoms as evidenced by Na 126 Status Active Problem Recommendation Dietitian Will change diet to Regular d/t signs and symptoms of Recommendations/ malnutrition and poor po intake Changes Rec consider FR d/t Na 126 if MD feels appropriate Will provide 4 oz chocolate ensure plus high protein tid w/ meals and fortified foods w/ meals as able for increased nutrition if consumed. Weight / BMI Weight Weight: 105 lb 13.15 oz Body Mass Index (BMI) 16.5 ABG / Lab / Microbiology Data 06/21/25 05:31 06/21/25 05:31 Laboratory: Laboratory Results - last 24 hr 06/21/25 05:31: WBC 6.0, RBC 4.13 L, Hgb 12.9, Hct 38.0, MCV 92.0, MCH 31.2, MCHC 33.9, RDW Std Deviation 48.9 H, RDW Coeff of Karis 14.5, Plt Count 225, MPV 10.6, Immature Gran % (Auto) 0.300, Neut % (Auto) 53.6, Lymph % (Auto) 30.4, M brennan % (Auto) 13.4 H, Eos % (Auto) 1.5, Baso % (Auto) 0.8, Absolute Neuts (auto) 3.2, Absolute Lymphs (auto) 1.82, Nucleated RBC % 0, Sodium 125 L, Potassium 4.8, Chloride 91 L, Carbon Dioxide 26.2, Anion Gap 8, BUN 24 H, Creatinine 0.87, Estim Creat Clear Calc 37.13 L, Est GFR (MDRD) Non-Af 66, BUN/Creatinine Ratio 26.9 H, Glucose 86, Calcium 8.6 D/C Instructions Weight Bearing Status: Weight bearing as tolerated Call your doctor if you observe: Fever of 101 or Higher, Coldness, Increased Pain, Numbness or Tingling, Change in Color, Inability to urinate, Inability to have a bowel movement, Shortness of breath, Dizziness, Fainting spells, Swelling in the ankles, Chest pain, Prolonged hiccupping, Increased palpitations (irregular heartbeat) and Calf discomfort DC O2, CPAP, BIPAP Needs Home O2 Discharge instructions: No When: IN 2 WEEKS Meaningful Use Info Meaningful Use Meaningful Use Diagnoses (Choose all that apply): None applicable Discharge Plan Admission Admit Date/Time: 06/20/25 00:42 Attending Provider: Otis Davis Primary Care Provider: Daljit Sen Consulting Providers: Arline Vasquez Discharge Orders/Prescriptions Prescriptions: New quetiapine 25 mg Tablet 50 mg PO QHS 30 Days Qty: 60 0RF sodium chloride 1,000 mg Tablet,Soluble 1,000 mg PO TID 14 Days Qty: 42 0RF Continued cholecalciferol (vitamin D3) 25 mcg (1,000 unit) tablet 25 mcg PO DAILY ascorbic acid (vitamin C) 500 mg tablet 250 mg PO DAILY psyllium husk [Daily Fiber] 0.4 gram capsule 0.4 g PO DAILY mecobalamin (vitamin B12) 500 mcg tablet,chewable 500 mcg PO DAILY (DME) oxygen See Rx Instructions .Route .MEDSUPPLY Qty: 1 0RF Rx Instructions: Nocturnal oxygen at 3 liters, per nasal canula fluoxetine [Prozac] 20 mg capsule 20 mg PO QDAY Qty: 90 1RF vitamin E (dl, acetate) 180 mg (400 unit) capsule 180 mg PO QDAY magnesium chloride 64 mg tablet,delayed release (DR/EC) 64 mg PO QDAY potassium chloride 10 mEq capsule, extended release 10 meq PO QDAY metoprolol tartrate 25 mg tablet 25 mg PO BID Qty: 180 3RF hydrocodone-acetaminophen 5-325 mg tablet 1 tab PO QHS PRN (Reason: pain) 30 Days Qty: 30 0RF food supplemt, lactose-reduced 0.08 gram-1.5 kcal/mL liquid 120 ml PO DAILY PRN (Reason: supp) polyethylene glycol 3350 [ClearLax] 17 gram/dose powder 17 g PO DAILY PRN (Reason: constipation) zinc acetate 50 mg (zinc) capsule 50 mg PO DAILY omeprazole 20 mg capsule,delayed release(DR/EC) 20 mg PO DAILY PRN (Reason: acid reflux) fluoxetine 10 mg capsule 20 mg PO DAILY furosemide 40 mg tablet 40 mg PO DAILY 30 Days Qty: 30 0RF Discontinued quetiapine 100 mg tablet 50 mg PO QHS Qty: 60 1RF Referrals / Follow Up: Daljit Sen DO [Primary Care Provider, Internal Medicine] Pearl Whitaker MD [Med Staff - Consulting, Nephrology] - Within 2 Weeks Disposition Disposition (needs filled in before D/C Order can be placed): Home, Self Care Charges/Coding Visit Charges Inpatient E&M: 49442 Disch Hosp >30min
[2025-06-21 11:33] VITALS: BP 128/84; PULSE 92; RESP 18; TEMP 36.6; O2SAT 95
== END 2025-06-21 12:26 | disposition home or self-care (01) | DRG 292 ==
LOC: ED 23:32 → ICU 06-20 01:35 → PCU 06-21 03:05
PROVIDERS: Admitting Provider Student in an Organized Health Care Education/Training Program; Emergency Provider Emergency Medicine; PCP Family Medicine; Visit Provider Internal Medicine
DX: I50.31 Acute diastolic (congestive) heart failure (principal); E87.1 Hypo-osmolality and hyponatremia; I48.20 Chronic atrial fibrillation, unspecified; K21.9 Gastro-esophageal reflux disease without esophagitis; F41.8 Other specified anxiety disorders; Z90.710 Acquired absence of both cervix and uterus; Z85.828 Personal history of other malignant neoplasm of skin; Z90.49 Acquired absence of other specified parts of digestive tract; Z79.899 Other long term (current) drug therapy
CPT/HCPCS: 36415; 71046; 80048; 83880; 84484; 85025; 93005; 94760; 97162; 97166; 99283; A4216; J1938; J2405

== ENCOUNTER → 2025-07-13 | Outpatient (CLI) | payer MEDICARE, BC, SELFPAY ==
[2025-07-13 14:54] LABS: Anion Gap 9 (5-15); BUN 20 mg/dL (4-19); BUN/Creat Ratio 18.7 RATIO (10-20); Calcium,Total 9.3 mg/dL (7.6-11.0); Carbon Dioxide 30.5 mmol/L (21.0-32.0); Chloride 94 mmol/L (98-108); Glucose 88 mg/dL (70-99); Potassium 4.1 mmol/L (3.3-5.1)
== END | disposition home or self-care (01) ==
LOC: LAB 13:38
PROVIDERS: PCP Family Medicine; Referring Provider Physician Assistant Medical; Visit Provider Physician Assistant Medical
DX: I51.81 Takotsubo syndrome (principal); I50.31 Acute diastolic (congestive) heart failure; Z79.899 Other long term (current) drug therapy
CPT/HCPCS: 36415; 80048

== ENCOUNTER → 2025-08-20 | Outpatient (CLI) | payer MEDICARE, BC, SELFPAY ==
[2025-08-20 18:18] LABS: Anion Gap 11 (5-15); BUN 24 mg/dL (4-19); BUN/Creat Ratio 27.9 RATIO (10-20); Calcium,Total 9.2 mg/dL (7.6-11.0); Carbon Dioxide 27.5 mmol/L (21.0-32.0); Chloride 96 mmol/L (98-108); Glucose 74 mg/dL (70-99); Potassium 4.3 mmol/L (3.3-5.1)
== END | disposition home or self-care (01) ==
LOC: LAB 14:49
PROVIDERS: PCP Family Medicine; Referring Provider Nurse Practitioner Family; Visit Provider Nurse Practitioner Family
DX: J90 Pleural effusion, not elsewhere classified (principal); I50.31 Acute diastolic (congestive) heart failure; I27.20 Pulmonary hypertension, unspecified; I48.19 Other persistent atrial fibrillation; I34.0 Nonrheumatic mitral (valve) insufficiency
CPT/HCPCS: 36415; 80048

== ENCOUNTER → 2025-08-25 | Outpatient (CLI) | payer MEDICARE, BC, MEDICAID, SELFPAY ==
--- NOTE | 2025-08-25 12:59 | ECHOD_ITS ---
Reason For Study Reason For Study: Mitral Valve Disease Procedure This was a 2D Doppler, Color Flow transthoracic echocardiogram. The patient is in sinus rhythm. Exam performed in department. Left Ventricle Normal-sized left ventricle. Left ventricular EF by Sewell's biplane: 65%. Diastolic dysfunction grade indeterminate due to arrhythmia. No regional wall motion abnormalities noted. Right Ventricle Normal right ventricle. RVSP estimated at 40 to 50 mmHg. Right ventricular function mildly reduced. Atria Severely enlarged left atrium. Normal right atrium. Mitral Valve Mild mitral annular calcification. There is heavily calcified leaflet tips/commissures, with marked retraction of the posterior mitral valve leaflet leading to posteriorly directed severe mitral regurgitation. The anterior leaflet is also heavily thickened/calcified, concern for rheumatic etiology with degree of commissural involvement and mild calcification noted in the subvalvular apparatus. There is no hemodynamically significant mitral stenosis. Tricuspid Valve Normal tricuspid valve. Mild to moderate tricuspid regurgitation. No tricuspid stenosis. Aortic Valve Trileaflet aortic valve. No hemodynamically significant aortic stenosis. No aortic regurgitation. Pulmonic Valve Normal pulmonic valve. Mild pulmonic regurgitation. No pulmonic stenosis. Great Vessels Normal sized aortic root. Pericardium/Pleural No pericardial effusion. Pleural effusion present. MMode/2D Measurements & Calculations LVIDd: 4.2 cm IVSd: 1.1 cm Ao root diam: 2.9 cm LVIDs: 3.1 cm LVPWd: 0.96 cm RVDd: 3.6 cm FS: 27.5 % LAV(MOD-bp): 170.3 ml LVAd ap4: 27.1 cm2 SV(MOD-sp4): 54.9 ml LAV(MOD-bp) Indexed: 108.2 ml/m2 LVLd ap4: 7.4 cm SI(MOD-sp4): 34.9 ml/m2 LAV(MOD-sp2): 136.8 ml EDV(MOD-sp4): 85.0 ml LAV(MOD-sp4): 192.9 ml EDV(sp4-el): 84.1 ml LVAs ap4: 14.5 cm2 LVLs ap4: 6.2 cm ESV(MOD-sp4): 30.1 ml ESV(sp4-el): 28.8 ml EF(MOD-sp4): 64.6 % EF(sp4-el): 65.7 % SV(sp4-el): 55.3 ml LA A4 area: 42.1 cm2 LA dimension(2D): 5.3 cm RA A4 area: 17.7 cm2 TAPSE: 1.1 cm Doppler Measurements & Calculations MV E max natacha: 195.7 cm/sec MV V2 max: 221.8 cm/sec Ao V2 max: 130.9 cm/sec MV max P.7 mmHg Ao max P.9 mmHg MV V2 mean: 97.0 cm/sec Ao V2 mean: 89.6 cm/sec MV mean P.4 mmHg Ao mean P.7 mmHg MV V2 VTI: 45.0 cm Ao V2 VTI: 27.3 cm AV (velocity ratio): 0.58 LV V1 max: 76.1 cm/sec MR max natacha: 462.0 cm/sec PA V2 max: 50.6 cm/sec LV V1 max P.3 mmHg MR max P.4 mmHg LV V1 mean P.1 mmHg MR mean natacha: 348.1 cm/sec LV V1 mean: 49.2 cm/sec MR mean P.3 mmHg LV V1 VTI: 15.9 cm MR VTI: 143.7 cm TR max natacha: 313.1 cm/sec TR max P.2 mmHg ECHO/Echo Complete Interpretation Summary Left ventricular EF by Sewell's biplane: 65% Diastolic dysfunction grade indeterminate in the setting of arrhythmia Left atrium is severely dilated There is severe mitral regurgitation There is a pleural effusion Compared to echocardiogram on 03/03/2025, mitral regurgitation is now severe. Ordering Physician: Julio Kenny Referring Physician: Julio Kenny Performed By: Luis Harkins RCS
== END | disposition home or self-care (01) ==
LOC: CVS 12:56
PROVIDERS: PCP Family Medicine; Referring Provider Nurse Practitioner Family; Visit Provider Nurse Practitioner Family
DX: I34.0 Nonrheumatic mitral (valve) insufficiency (principal); I50.31 Acute diastolic (congestive) heart failure; I27.20 Pulmonary hypertension, unspecified; I48.19 Other persistent atrial fibrillation; J90 Pleural effusion, not elsewhere classified
CPT/HCPCS: 93306